=== PATIENT | male | born 1955 | race Caucasian/White ===

== ENCOUNTER 2020-07-21 08:41 | Emergency (ER) | payer OTHER ==
[2020-07-21 09:34] LABS: Absolute Lymphocytes (CBC) 2.2 K/uL (0.7-4.9); Basophils % 1.3 % (0-1.3); Hematocrit 53.2 % (39.6-49.0); Lymphocytes % 25.2 % (15.3-44.8); MPV 8.2 fL (7.6-11.3); RBC Red Blood Cell Count 5.77 M/uL (4.33-5.43)
[2020-07-21 09:44] LABS: Urine Blood 3+ (NEG); Urine Glucose 3+ (NEG); Urine Protein TRACE (NEG); Urine Specific Gravity 1.025 (1.005-1.030); Urine pH 5.5 (5.0-7.0)
[2020-07-21 09:45] LABS: Potassium 4.3 mmol/L (3.5-5.1)
--- NOTE | 2020-07-21 10:25 | EDPHYS ---
Physician Documentation [facility] Name: Tutu Harrington Age: 65 yrs Sex: Male : 1955 Arrival Date: 07/21/2020 Time: 08:46 Bed 5 Private MD: ED Physician Jt Guajardo HPI: 07/21 09:09 This 65 yrs old Male presents to ER via Wheelchair with complaints of High kdr Blood Sugar. 09:09 The patient or guardian reports generalized fatigue, generalized weakness, kdr hyperglycemia, polydipsia, polyuria. Onset: The symptoms/episode began/occurred gradually, 9 month(s) ago. Associated signs and symptoms: Pertinent positives: dry skin, polydipsia. Current symptoms: In the emergency department the patient's symptoms are unchanged from the initial presentation. The patient has experienced similar episodes in the past, chronically. The patient has not recently seen a physician. Historical: - Allergies: 08:47 No Known Allergies; rb1 - Home Meds: 08:47 None [Active]; rb1 - PMHx: 08:47 COPD; Arthritis; rb1 08:47 Diabetes - Refused Insulin; rb1 - PSHx: 08:47 Bilateral Hip Replacements; rb1 - Immunization history:: Adult Immunizations up to date. - Social history:: Smoking status: Patient reports the use of cigarette tobacco products, smokes one pack cigarettes per day. ROS: 09:09 Constitutional: Negative for fever, chills, and weight loss, Eyes: Negative for injury, kdr pain, redness, and discharge, Neck: Negative for injury, pain, and swelling, Cardiovascular: Negative for chest pain, palpitations, and edema, Respiratory: Negative for shortness of breath, cough, wheezing, and pleuritic chest pain, Abdomen/GI: Negative for abdominal pain, nausea, vomiting, diarrhea, and constipation, Back: Negative for injury and pain, Psych: Negative for depression, anxiety, suicide ideation, homicidal ideation, and hallucinations, Allergy/Immunology: Negative for hives, rash, and allergies, Hematologic/Lymphatic: Negative for swollen nodes, abnormal bleeding, and unusual bruising. 09:09 Skin: Positive for cellulitis, erythema. Exam: 09:09 Constitutional: This is a well developed, well nourished patient who is awake, alert, kdr and in no acute distress. Head/Face: Normocephalic, atraumatic. Eyes: Pupils equal round and reactive to light, extra-ocular motions intact. Lids and lashes normal. Conjunctiva and sclera are non-icteric and not injected. Cornea within normal limits. Periorbital areas with no swelling, redness, or edema. Neck: Trachea midline, no thyromegaly or masses palpated, and no cervical lymphadenopathy. Supple, full range of motion without nuchal rigidity, or vertebral point tenderness. No Meningismus. Chest/axilla: Normal chest wall appearance and motion. Nontender with no deformity. No lesions are appreciated. Cardiovascular: Regular rate and rhythm with a normal S1 and S2. No gallops, murmurs, or rubs. Normal PMI, no JVD. No pulse deficits. Respiratory: Lungs have equal breath sounds bilaterally, clear to auscultation and percussion. No rales, rhonchi or wheezes noted. No increased work of breathing, no retractions or nasal flaring. Abdomen/GI: Soft, non-tender, with normal bowel sounds. No distension or tympany. No guarding or rebound. No evidence of tenderness throughout. Back: No spinal tenderness. No costovertebral tenderness. Full range of motion. Skin: Warm, dry with normal turgor. Normal color with no rashes, no lesions, and no evidence of cellulitis. Neuro: Awake and alert, GCS 15, oriented to person, place, time, and situation. Cranial nerves II-XII grossly intact. Motor strength 5/5 in all extremities. Sensory grossly intact. Cerebellar exam normal. Normal gait. Psych: Awake, alert, with orientation to person, place and time. Behavior, mood, and affect are within normal limits. 09:09 Musculoskeletal/extremity: Extremities: grossly normal except: noted in the lateral aspect of right calf, right calf, medial aspect of right calf and right whaley: noted in the lateral aspect of left calf, left calf, medial aspect of left calf and left whaley: erythema, pain, Pulses: are normal with no appreciated deficits, Edema, 1+ to the left midcalf, left ankle, right midcalf and right ankle is noted. Vital Signs: 08:47 BP 148 / 92; Pulse 107; Resp 20; Pulse Ox 93% ; Weight 124.74 kg; Height 5 ft. 11 in. rb1 (180.34 cm); Pain 0/10; 09:43 BP 136 / 88; Pulse 104; Pulse Ox 95% on 2 lpm NC; rb1 10:30 BP 128 / 76; Pulse 105; Resp 18; Pulse Ox 95% on 2 lpm NC; rb1 08:47 Body Mass Index 38.35 (124.74 kg, 180.34 cm) rb1 Procedures: 09:25 Peripheral line: by aseptic technique a peripheral line was placed in the left external snw jugular vein. MDM: 09:09 Data reviewed: vital signs, nurses notes. Counseling: I had a detailed discussion with kdr the patient and/or guardian regarding: the historical points, exam findings, and any diagnostic results supporting the discharge/admit diagnosis, lab results, the need for outpatient follow up. 10:24 Patient medically screened. kdr 07/21 08:49 Order name: CBC with Diff; Complete Time: 10:20 kdr 07/21 08:49 Order name: Chem 7; Complete Time: 10:20 kdr 07/21 09:13 Order name: Glucose, Ancillary Testing; Complete Time: 09:28 EDMS 07/21 09:17 Order name: Urine Dipstick--Ancillary (enter results); Complete Time: 10:20 eb 07/21 08:49 Order name: FSBS; Complete Time: 09:05 kdr Administered Medications: 10:35 Drug: metFORMIN 500 mg Route: PO; rb1 10:35 Follow up: Response: Medication administered at discharge. rb1 Point of Care Testing: Blood Glucose: 09:02 Blood Glucose: 309 mg/dL; rb1 Ranges: Critical Glucose Levels:Adult <50 mg/dl or >400 mg/dl <40 mg/dl or >180 mg/dl Disposition: 10:22 I agree with the assessment and plan of care. kdr Disposition: 07/21/20 10:24 Discharged to Home. Impression: Hyperglycemia, unspecified, Hematuria. - Condition is Stable. - Discharge Instructions: Hematuria, Adult, Blood Glucose Monitoring, Adult, Hyperglycemia, [id number], How to Avoid Diabetes Problems. - Prescriptions for Bactrim DS 800- 160 mg Oral Tablet - take 1 tablet by ORAL route every 12 hours for 5 days; 10 tablet. Metformin 500 mg Oral Tablet - take 1 tablet by ORAL route once daily for 7 days Then take 1 tablet with morning meals AND evening meals; 21 tablet. Celebrex 100 mg Oral Capsule - take 1 capsule by ORAL route every 12 hours As needed take with food; 16 capsule. Albuterol Sulfate 90 mcg/actuation - inhale 1-2 puff by INHALATION route every 4-6 hours; 1 Inhaler. - Medication Reconciliation Form, Thank You Letter, Antibiotic Education form. - Follow up: Private Physician; When: 2 - 3 days; Reason: If symptoms return, Further diagnostic work-up, Recheck today's complaints, Continuance of care, Re-evaluation by your physician. - Problem is new. - Symptoms have improved. Signatures: Dispatcher [employer] EDRI Jt Guajardo MD MD kdr Danita Tang, [facility]Cs[facility] Megan Peña, RN RN rb1 Corrections: (The following items were deleted from the chart) 10:46 10:24 07/21/2020 10:24 Discharged to Home. Impression: Hyperglycemia, unspecified; rb1 Hematuria. Condition is Stable. Forms are Medication Reconciliation Form, Thank You Letter, Antibiotic Education, Prescription Opioid Use. Follow up: Private Physician; When: 2 - 3 days; Reason: If symptoms return, Further diagnostic work-up, Recheck today's complaints, Continuance of care, Re-evaluation by your physician. Problem is new. Symptoms have improved. kdr
--- NOTE | 2020-07-21 10:25 | ER ---
Nurse's Notes [facility] Name: Tutu Harrington Age: 65 yrs Sex: Male : 1955 Arrival Date: 07/21/2020 Time: 08:46 Bed 5 Private MD: Diagnosis: Hyperglycemia, unspecified;Hematuria Presentation: 07/21 08:47 Chief complaint: Patient states: Blood sugar has been running high. Two days ago his BS rb1 385. He did not check his BS today. Doctor wanted him to take insulin, but he refused. Coronavirus screen: At this time, the client does not indicate any symptoms associated with coronavirus-19. Ebola Screen: Patient denies travel to an Ebola-affected area in the 21 days before illness onset. Risk Assessment: Do you want to hurt yourself or someone else? Patient reports no desire to harm self or others. Onset of symptoms is unknown. 08:47 Method Of Arrival: Wheelchair [facility] 08:47 Acuity: JESSA 3 rb1 08:47 Initial Sepsis Screen: Does the patient meet any 2 criteria? No. Patient's initial rb1 sepsis screen is negative. Does the patient have a suspected source of infection? No. Patient's initial sepsis screen is negative. Triage Assessment: 08:47 General: Appears in no apparent distress. comfortable, Behavior is calm, cooperative, rb1 Reports fatigue for all the time per pt. report. Denies fever. Pain: Denies pain. Neuro: Level of Consciousness is awake, alert, obeys commands, Oriented to person, place, time, situation. Respiratory: Airway is patent Respiratory effort is even, unlabored, Respiratory pattern is regular, symmetrical. GI: Reports nausea. : No signs and/or symptoms were reported regarding the genitourinary system. Derm: Skin is dusky. Historical: - Allergies: 08:47 No Known Allergies; rb1 - Home Meds: 08:47 None [Active]; rb1 - PMHx: 08:47 COPD; Arthritis; rb1 08:47 Diabetes - Refused Insulin; rb1 - PSHx: 08:47 Bilateral Hip Replacements; rb1 - Immunization history:: Adult Immunizations up to date. - Social history:: Smoking status: Patient reports the use of cigarette tobacco products, smokes one pack cigarettes per day. Screenin:47 Abuse screen: Denies threats or abuse. Nutritional screening: No deficits noted. rb1 Tuberculosis screening: No symptoms or risk factors identified. 08:47 Fall Risk No fall in past 12 months (0 pts). Secondary diagnosis (15 points) impaired rb1 mobility, IV access (20 points). Ambulatory Aid- Crutches/Cane/Walker (15 pts). Gait- Impaired (20 pts.). Mental Status- Oriented to own ability (0 pts). Total Lopes Fall Scale indicates High Risk Score (45 or more points). Fall prevention measures have been instituted. Side Rails Up X 2 Placed Close to Nursing Station 1:1 Attendant Assigned Frequent Obs/Assessments Occuring Family Present and informed to notify staff if the need to leave the bedside As available patient and family educated on Fall Prevention Program and Strategies. Assessment: 08:47 General: See triage assessment. rb1 09:44 Reassessment: Patient appears in no apparent distress at this time. No changes from rb1 previously documented assessment. 10:30 Reassessment: Patient appears in no apparent distress at this time. Patient and/or rb1 family updated on plan of care and expected duration. Pain level reassessed. Patient is alert, oriented x 3, equal unlabored respirations, skin warm/dry/pink. Vital Signs: 08:47 BP 148 / 92; Pulse 107; Resp 20; Pulse Ox 93% ; Weight 124.74 kg; Height 5 ft. 11 in. rb1 (180.34 cm); Pain 0/10; 09:43 BP 136 / 88; Pulse 104; Pulse Ox 95% on 2 lpm NC; rb1 10:30 BP 128 / 76; Pulse 105; Resp 18; Pulse Ox 95% on 2 lpm NC; rb1 08:47 Body Mass Index 38.35 (124.74 kg, 180.34 cm) [facility] ED Course: 08:46 Patient arrived in ED. as 08:47 Arm band placed on right wrist. rb1 08:47 Patient has correct armband on for positive identification. Bed in low position. Call rb1 light in reach. Side rails up X 1. Pulse ox on. NIBP on. Warm blanket given. 08:48 Jt Guajardo MD is Attending Physician. kdr 08:55 Megan Peña, RN is Primary Nurse. rb1 08:57 Triage completed. rb1 09:15 Inserted saline lock: 20 gauge in left EJ, using aseptic technique. ,using aseptic rb1 technique. Inserted by GALINDO Samayoa. 10:38 No provider procedures requiring assistance completed. IV discontinued, intact, rb1 bleeding controlled, No redness/swelling at site. Pressure dressing applied. Administered Medications: 10:35 Drug: metFORMIN 500 mg Route: PO; rb1 10:35 Follow up: Response: Medication administered at discharge. rb1 Point of Care Testing: Blood Glucose: 09:02 Blood Glucose: 309 mg/dL; rb1 Ranges: Outcome: 10:24 Discharge ordered by . kdr 10:38 Patient left the ED. rb1 10:38 Discharged to home via wheelchair, with family. rb1 10:38 Condition: stable 10:38 Discharge instructions given to patient, Instructed on discharge instructions, follow up and referral plans. medication usage, Demonstrated understanding of instructions, follow-up care, medications, Prescriptions given X 4. Signatures: Jt Guajardo MD MD kdr Lavinia Aguilar Rebecca, RN RN rb1 Corrections: (The following items were deleted from the chart) 10:49 10:46 Patient left the ED. rb1 rb1
[2020-07-21] MEDS ORDERED: METFORMIN HCL 500 MG TAB ONE (10:43)
[2020-07-21 11:01] VITALS: BP 136/88; O2SAT 95
--- OUTSIDE RECORDS SUMMARY | 2020-07-25 22:24 | XMS REPORT | Continuity of Care Document ---
:1955 Author Organization [employer] Information [employer] Care Team Providers Name Role Phone [facility] [employer] Information [place] Unavailable Un available Problems Problem Status Onset Classification Date Comments Sourc e Date Reported CHROIC Active [facility] [place] HEPATITIS C 2 [facility] VIRUS, JOINT PAIN, LO 724.2 - Active OPID LUMBAGO 2 [place] Arthritis Resolved Problem 10/30/2012 [facility] Asbestos Active Problem 10/30/2012 [facility] [place] fibers Hospital Hepatitis C Active Problem 10/30/2012 [facility] Insomnia Resolved Problem 10/30/2012 [facility] Pain Active Problem 10/30/2012 [facility] HEPATITIS NOS Active [facility] Medications Medication Details Route Status Patient Ordering Order Source Instructions Provider Date Milk of Magnesia 30 mL, Route: PO No Cody 10/27/ Araceli PO, Drug Form: [facility] 2012 [facility] SUSP, Q6H, PRN Active Constipation, Start date: 10/26/12 21:13:00, Duration: 30 day, Stop date: 11/25/12 21:12:00 Lovenox 40 mg, 0.4 mL, SUB-Q No Cody 10/26/ Araceli Route: SUB-Q, [address] Drug form: INJ, Active [id number], Start date: 10/26/12 4:00:00, Duration: 30 day, Stop date: 11/24/12 4:00:00 promethazine + 6.25 mg, 0.25 IVPB No Jac 10/26/ Araceli Sodium Chloride mL, Route: IVPB, [address] 0.9% IV 50 mL ONCE, Dosing Active Weight 135.625, kg, PRN Nausea & Vomiting, Start date: 10/25/12 18:01:00 cefazolin 2 gm, 50 mL, IVPB No Cody 10/26/ Araceli Route: IVPB, [address] Drug form: INJ, Active [id number], Start date: 10/25/12 18:00:00, Duration: 3 doses or times, Stop date: 10/26/12 10:00:00 Lovenox 40 mg/0.4 40mg/0.4mL, SUB-Q Active Cody Janet Charles mL subcutaneous SUB-Q, Daily, 20 2012 [facility] solution syr, Substitution Allowed Pixley 10/325 oral 1-2 tabs, PO, PO Active Cody 10/25/ GERARD Charles tablet Q4H, PRN, 40 2012 [facility] tab, for pain, Substitution Allowed, Maintenance, TAB enoxaparin 40 mg, Route: SUB-Q No Cody 10/25/ GERARD Kandy y SUB-Q, Q24H, Longer 2012 [facility] Dosing Weight Active 135.625, kg, Start date: 10/25/12 16:00:00, Duration: 30 day, Stop date: 11/23/12 16:00:00 cefazolin (SCIP) 2 gm, Route: IVPB No Cody Janet Charles IVPB, Drug form: Longer 2012 [facility]ospita [facility] INJ, Q8H, Dosing Active Weight 135.625, kg, Start date: 10/25/12 16:00:00, Duration: 3 doses or times, Stop date: 10/26/12 8:00:00 nalbuphine 2 mg, 0.2 mL, IVP No Cody GERARD Gaitan y Route: IVP, Drug Longer 2012 [facility]ospita l form: INJ, Q2H, Active Dosing Weight 135.625, kg, PRN Itching, Start date: 10/25/12 15:51:00, Duration: 5 doses or times, Stop date: Limited # of times naloxone 0.04 mg, 0.1 mL, IVP No Cody 10/25/ GERARD Ka ty Route: IVP, Drug Longer 2012 Hospita l form: INJ, Active Q2MIN, Dosing Weight 135.625, kg, PRN Narcotic Reversal, Start date: 10/25/12 15:51:00, Duration: 30 day, Stop date: 11/24/12 15:50:00 morphine 1 mg/ml 30 mg, 30 mL, IV No Cody GERARD Charles [employer] (30 mg/30 mL) Route: IV, Longer 2012 Hos pital INJ Syringe 30 mg Initial Loading Active Dose: 2 mg, [employer] DIRECTOR Dose: 1 mg, [employer] DIRECTOR Lockout: 7 minutes, Continuous Basal Rate: 1.5 mg, 4 Hour Limit (In MG): 30, Drug Form: INJ, Continuous, Pain, Start date: 10/25/12 15:51:00, Duration: 30 day, Stop date: ... Lactated Ringers 1,000 mL, Rate: IV No Cody GERARD Charles IV 1,000 mL 125 ml/hr, 2012 Hospital Infuse over: 8 Active hr, Route: IV, kg, Total Volume: 1,000, Start date: 10/25/12 15:51:00, Duration: 30 day, Stop date: 11/24/12 15:50:00 zolpidem 5 mg, 1 tab, PO No Cody GERARD Charles Route: PO, Drug 2012 Hospital form: TAB, Active Bedtime, Dosing Weight 135.625, kg, PRN Insomnia, Start date: 10/25/12 15:51:00, Duration: 30 day, Stop date: 11/24/12 15:50:00 ondansetron 4 mg, 2 mL, IVP No Cody Araceli Route: IVP, Drug 2012 [facility]ospita l form: INJ, Q4H, Active Dosing Weight 135.625, kg, PRN Nausea & Vomiting, Start date: 10/25/12 15:51:00, Duration: 30 day, Stop date: 11/24/12 15:50:00 diphenhydrAMINE 25 mg, 0.5 mL, IM No Cody Araceli Route: IM, Drug 2012 Hospital form: INJ, Q6H, Active Dosing Weight 135.625, kg, PRN Itching, Start date: 10/25/12 15:51:00, Duration: 30 day, Stop date: 11/24/12 15:50:00 ketorolac 30 mg, 1 mL, IVP No Cody Araceli Route: IVP, Drug 2012 [facility]ospita l form: INJ, Q6H, Active Dosing Weight 135.625, kg, PRN Breakthrough Pain, Start date: 10/25/12 15:51:00, Duration: 6 doses or times, Stop date: Limited # of times acetaminophen-oxy 2 tab, Route: PO No Cody Araceli codone 325 mg-5 PO, Drug Form: 2012 H ospital mg oral tablet TAB, Dosing Active Weight 135.625, kg, Q4H, PRN Pain Score 4-6, Start date: 10/25/12 15:51:00, Duration: 30 day, Stop date: 11/24/12 15:50:00 acetaminophen 325 mg, 1 tab, PO No Cody Araceli Route: PO, Drug 2012 Hospital form: TAB, Q4H, Active Dosing Weight 135.625, kg, PRN Pain/Fever, Start date: 10/25/12 15:51:00, Duration: 30 day, Stop date: 11/24/12 15:50:00 naloxone 0.04 mg, 0.1 mL, IVP No Fredo Kandy mojica Route: IVP, Drug 2012 Hospita l form: INJ, Active Q2MIN, Dosing Weight 135.625, kg, PRN Narcotic Reversal, Start date: 10/25/12 12:43:00, Duration: 8 doses or times, Stop date: Limited # of times flumazenil 0.2 mg, 2 mL, IVP No Fredo Araceli Route: IVP, Drug 2012 [facility]ospita l form: INJ, PRN, Active Dosing Weight 135.625, kg, PRN Benzodiazepine Reversal, Initial dose, Start date: 10/25/12 12:43:00, Duration: 30 day, Stop date: 11/24/12 12:42:00 albuterol 0.083% 2.49 mg, 3 mL, NEB No Fredo Araceli inhalation Route: NEB, Drug 2012 Hosp ital solution form: SOLN, Active Q5Min, Dosing Weight 135.625, kg, PRN Wheezing, Priority: STAT, Start date: 10/25/12 12:43:00, Duration: 30 day, Stop date: 11/24/12 12:42:00 midazolam 2 mg, 2 mL, IVP No Fredo Araceli Route: IVP, Drug 2012 [facility]ospita l form: SOLN, Active Q5Min, Dosing Weight 135.625, kg, PRN Anxiety, Start date: 10/25/12 12:43:00, Duration: 2 doses or times, Stop date: Limited # of times ondansetron 4 mg, 2 mL, IVP No Adi GERARD Charles Route: IVP, Drug Longer 2012 Hospita l form: INJ, ONCE, Active Dosing Weight 135.625, kg, PRN Nausea & Vomiting, Start date: 10/25/12 12:43:00 labetalol 5 mg, 1 mL, IVP No Fredo Araceli Route: IVP, Drug Longer 2012 [facility]ospita l form: INJ, Active Q5Min, Dosing Weight 135.625, kg, PRN Elevated BP, Start date: 10/25/12 12:43:00, Duration: 5 doses or times, Stop date: Limited # of times meperidine 12.5 mg, 0.5 mL, IVP No Fredo GERARD carbajal Route: IVP, Drug 2012 Hospita l form: INJ, Active Q30Min, Dosing Weight 135.625, kg, PRN Other -See Comment, For shivering, Start date: 10/25/12 12:43:00, Duration: 2 doses or times, Stop date: Limited # of times morphine Sulfate 2 mg, 1 mL, IVP No Fredo Araceli Route: IVP, Drug 2012 [facility]ospita l form: INJ, Active Q5Min, Dosing Weight 135.625, kg, PRN Pain Score 4-6, Start date: 10/25/12 12:43:00, Duration: 8 doses or times, Stop date: Limited # of times hydromorphone 0.5 mg, 0.25 mL, IVP No Fredo Janet Charles Route: IVP, Drug Longer 2012 Hospita l form: INJ, Active Q5Min, Dosing Weight 135.625, kg, PRN Pain Score 4-6, Start date: 10/25/12 12:43:00, Duration: 5 doses or times, Stop date: Limited # of times Lactated Ringers 1,000 mL, Rate: IV No Fredo Araceli Injection IV 50 ml/hr, Infuse Longer 2012 Ho spital 1,000 mL over: 20 hr, Active Route: IV, kg, Total Volume: 1,000, Start date: 10/25/12 12:43:00, Duration: 30 day, Stop date: 11/24/12 12:42:00 morphine Sulfate 4 mg, Route: IVP No Fredo GERARD Charles IVP, ONCE, Longer 2012 [facility] Dosing Weight Active 135.625, kg, Start date: 10/25/12 12:24:00, Stop date: 10/25/12 12:24:00 midazolam 2 mg, 2 mL, IVP No Dana GERARD Charles Route: IVP, Drug Longer 2012 Hospita l form: SOLN, Active Q5Min, Dosing Weight 135.625, kg, PRN Anxiety, Start date: 10/25/12 7:35:00, Duration: 2 doses or times, Stop date: Limited # of times dexamethasone 4 mg, 1 mL, IVP No Fredo GERARD mojica Route: IVP, Drug 2012 Hospita l form: INJ, ONCE, Active Dosing Weight 135.625, kg, PRN Nausea & Vomiting, Start date: 10/25/12 7:35:00 ondansetron 4 mg, 2 mL, IVP No Dana GERARD Charles Route: IVP, Drug 2012 [facility]ospita l form: INJ, ONCE, Active Dosing Weight 135.625, kg, PRN Nausea & Vomiting, Start date: 10/25/12 7:35:00 diphenhydrAMINE 12.5 mg, 0.25 IVP No Fredo GERARD Charles mL, Route: IVP, Longer 2012 [facility] Drug form: INJ, Active PRN, Dosing Weight 135.625, kg, PRN Itching, Start date: 10/25/12 7:35:00, Duration: 30 day, Stop date: 11/24/12 7:34:00 naloxone 0.04 mg, 0.1 mL, IVP No Dana GERARD mojica Route: IVP, Drug 2012 Hospita l form: INJ, Active Q2MIN, Dosing Weight 135.625, kg, PRN Narcotic Reversal, Start date: 10/25/12 7:35:00, Duration: 8 doses or times, Stop date: Limited # of times flumazenil 0.2 mg, 2 mL, IVP No Dana GERARD Charles Route: IVP, Drug Longer 2012 Hospita l form: INJ, PRN, Active Dosing Weight 135.625, kg, PRN Benzodiazepine Reversal, Initial dose, Start date: 10/25/12 7:35:00, Duration: 30 day, Stop date: 11/24/12 7:34:00 meperidine 12.5 mg, 0.5 mL, IVP No Dana K aty Route: IVP, Drug Longer 2012 Hospita l form: INJ, Active Q30Min, Dosing Weight 135.625, kg, PRN Other -See Comment, For shivering, Start date: 10/25/12 7:35:00, Duration: 2 doses or times, Stop date: Limited # of times morphine Sulfate 2 mg, 1 mL, IVP No Dana Araceli Route: IVP, Drug Longer 2012 [facility]ospita l form: INJ, Active Q5Min, Dosing Weight 135.625, kg, PRN Pain Score 4-6, Start date: 10/25/12 7:35:00, Duration: 8 doses or times, Stop date: Limited # of times fentanyl 25 microgram, IVP No [place] Araceli 0.5 mL, Route: Longer 2012 Hospital IVP, Drug form: Active INJ, Q5Min, Dosing Weight 135.625, kg, PRN Pain Score 4-6, Start date: 10/25/12 7:35:00, Duration: 4 doses or times, Stop date: Limited # of times butorphanol 1 mg, 1 mL, IVP No Fredo Araceli Route: IVP, Drug Longer 2012 Hospita l form: INJ, Active Q10Min, Dosing Weight 135.625, kg, PRN Pain Score 7-10, Start date: 10/25/12 7:35:00, Duration: 2 doses or times, Stop date: Limited # of times metoprolol 1 mg, 1 mL, IVP No Fredo Araceli Route: IVP, Drug Longer 2012 Hospita l form: INJ, Active Q5Min, Dosing Weight 135.625, kg, PRN Elevated BP, Start date: 10/25/12 7:35:00, Duration: 5 doses or times, Stop date: Limited # of times labetalol 5 mg, 1 mL, IVP No Sircar 10/25/ GERARD Charles Route: IVP, Drug Longer 2012 [facility] l form: INJ, Active Q5Min, Dosing Weight 135.625, kg, PRN Elevated BP, Start date: 10/25/12 7:35:00, Duration: 5 doses or times, Stop date: Limited # of times Lactated Ringers 1,000 mL, Rate: IV No Sircar Araceli Injection IV 50 ml/hr, Infuse Longer 2012 Ho spital 1,000 mL over: 20 hr, Active Route: IV, kg, Total Volume: 1,000, Start date: 10/25/12 7:35:00, Duration: 30 day, Stop date: 11/24/12 7:34:00 cefazolin 2 gm, 50 mL, IVPB No Cody Araceli Route: IVPB, Longer 2012 Hospital Drug form: INJ, Active PRE OP, Start date: 10/25/12 6:30:00, Duration: 1 doses or times, Stop date: 10/25/12 20:00:00 Sodium Chloride 25 mL, Route: IV No Cody H Araceli 0.9% IV IV, Start date: 2012 Hospital 10/22/12 Active 14:15:00, Duration: 30 day, Stop date: 11/21/12 14:14:00, PRN Line Flush BD Normal Saline 10 mL, Route: IV No Cody 10/22/ Araceli Flush IV, Drug Form: [facility] 2012 Hospital INJ, PRN, PRN Active Line Flush, Start date: 10/22/12 14:15:00, Duration: 30 day, Stop date: 11/21/12 14:14:00 Celebrex 200 mg 200 mg, 1 cap, PO Active H Arac[facility] oral capsule PO, BID, 30 cap, 2012 Ho spital Substitution Allowed, CAP Allergies, Adverse Reactions, Alerts Substance Category Reaction Severity Reaction Status Date Comments S ource type Reported NKFA drug Allergy Active [facility] allergy [facility] Immunizations No Data Provided for This Section Results Order Name Results Value Reference Date Interpretation Comments Abril rce Range CHEMISTRY BUN 23 7 - 22 10/26 [facility] /2012 [facility] CHEMISTRY Calcium Lvl 7.9 8.5 - 10.5 10/26 LOW Hospital CHEMISTRY Potassium 4.7 3.5 - 5.1 10/26 Normal [facility] CHEMISTRY Chloride Lvl 102 95 - 109 10/26 Normal [facility] CHEMISTRY Sodium Lvl 137 135 - 145 10/26 Normal [facility] CHEMISTRY Glucose Lvl 145 70 - 99 10/26 HI <sup>2</sup>I [facility] at nterpretive Hospital Data: Adult reference range values reflect the clinical guidelines
of the [place] [employer]. CHEMISTRY Creatinine 1.3 0.5 - 1.4 10/26 Normal [facility] CHEMISTRY CO2 27 24 - 32 10/26 Normal Araceli [facility] CHEMISTRY eGFR 61 10/26 NA <sup>1</sup>R [facility] Comment: The eGFR is calculated using the CKD-EPI formula. In most young, healthy individuals the eGFR will be >90 mL/min/1.73m2 . The eGFR declines with age. An eGFR of 60-89 may be normal in some populations, particularly the elderly, for whom the CKD-EPI formula has not been extensively validated. Use of the eGFR is not recommended in the following populations:& lt;br/>
I ndividuals with unstable creatinine concentration s, including patients and those with serious co-morbid conditions.<b r/>
Patie nts with extremes in muscle mass or diet.

The data above are obtained from the National Kidney Disease Education Program (NKDEP) which additionally recommends that when the eGFR is used in patients with extremes of body mass index for purposes of drug dosing, the eGFR should be multiplied by the estimated BMI. CHEMISTRY AGAP 12.7 10.0 - 10/26 Normal [facility] 20.0 Hospital HEMATOLOGY Monocytes # 0.6 0.0 - 0.8 10/26 Normal [facility] HEMATOLOGY Large Plt Slight None Seen 10/26 ABN MH [facility]eli *ABN* /2012 [facility] (10/26/2012 06:20:00) HEMATOLOGY Neut Vac Slight None Seen 10/26 ABN Araceli *ABN* [facility] (10/26/2012 06:20:00) HEMATOLOGY Basophils # 0.0 0.0 - 0.2 10/26 Normal [facility] /2012 Hospital HEMATOLOGY Eosinophils 0.1 0.0 - 0.5 10/26 Normal [facility] # /2012 Hospital HEMATOLOGY Eosinophils 0.5 0.0 - 4.0 10/26 Normal [facility] /2012 Hospital HEMATOLOGY Lymphocytes 1.8 1.0 - 5.5 10/26 Normal [facility] # /2012 Hospital HEMATOLOGY Segs-Bands # 9.1 1.5 - 8.1 10/26 HI MH Kandy y /2012 Hospital HEMATOLOGY Basophils 0.3 0.0 - 1.0 10/26 Normal [facility] /2012 Hospital HEMATOLOGY Monocytes 5.0 2.0 - 12.0 10/26 Normal [facility] /2012 Hospital HEMATOLOGY Lymphocytes 15.8 20.0 - 10/26 LOW [facility] 40.0 Hospital HEMATOLOGY Segs 78.4 45.0 - 10/26 HI [facility] 75.0 Hospital HEMATOLOGY RBC Morph Normal 10/26 Normal [facility] (10/26/2012 06:20:00) spital HEMATOLOGY RDW 13.1 11.5 - 10/26 Normal [facility] 14.5 /2012 Hospital HEMATOLOGY Platelet 86 133 - 450 10/26 LOW [facility] /2012 Hospital HEMATOLOGY MPV 9.3 7.4 - 10.4 10/26 Normal [facility] /2012 Hospital HEMATOLOGY RBC 3.88 4.70 - 10/26 LOW [facility] 6.10 Hospital HEMATOLOGY WBC 11.6 3.7 - 10.4 10/26 HI MH [facility] /2012 Hospital HEMATOLOGY MCHC 35.1 32.0 - 10/26 Normal MH [facility] 36.0 /2012 Hospital HEMATOLOGY MCH 32.8 27.0 - 10/26 HI MH [facility] 31.0 /2012 Hospital HEMATOLOGY MCV 93.3 80.0 - 10/26 Normal [facility] 94.0 /2012 Hospital HEMATOLOGY Hct 36.2 42.0 - 10/26 LOW MH [facility] 54.0 Hospital HEMATOLOGY Hgb 12.7 14.0 - 10/26 LOW MH [facility] 18.0 /2012 Hospital BLOOD BANK RBC product Product available 10/21 Normal [facility] RESULTS (10/21/2012 15:10:00) spital BLOOD BANK ABO/Rh A POS 10/21 Unknown [facility] RESULTS /2012 Hospital BLOOD BANK Antibody Negative 10/21 Normal [facility] RESULTS Scrn (10/21/2012 15:10:00) /2012 Ho spital Pathology Reports No Data Provided for This Section Diagnostic Reports Report Value Date Source Abdomen complete US EXAM: ABDOMEN ULTRASOUND 06/04/2016 Ness Andino DATE: 06/04/2016 10:47 AM CDT . CLINICAL INDICATION: . History of hepatitis C ADDITIONAL DATA: None COMPARISON: None TECHNIQUE: Multiplanar felix michael and color Doppler ultrasound images of the abdomen were obtained. DISCUSSION: Liver demonstrates increased echogenicity without masses. Right hepatic lobe measures 19.8 cm at the midclavicular line. Main portal vein measures 11 mm with hepatopetal flow. Gallbladder normal without g allstones. Gallbladder wall thickness is less than 3 mm. No sonographic Knight's sign or pericholecystic fluid. Visualized portions of the i ntrahepatic and extrahepatic biliary tree are of normal caliber. Common duct is less than 6 mm. Spleen measures 16 cm cranicaudally and is unrem arkable. Pancreas is unremarkable. Kidneys are normal in size, shape, and echotexture without masses or hydronephrosis. Right kidney measures 14.7 cm. Left kidney measures 14.4 cm. Abdominal aorta is of normal caliber. Inferior vena cava is unremarkable where visuali zed. IMPRESSION: 1. Hepatosplenomegaly 2. Echogenic liver suggestin g steatosis or other chronic hepatocellular disease. There is no focal mass lesion 3. Mildly enlarged kidneys b ilaterally without focal lesions. This may be physiologic in a tall patient. Alternatively, early stage diabetic nephropathy or infiltrative processes, such as human immunode ficiency virus or lymphoma may cause this appear ance. Consultation Notes No Data Provided for This Section Discharge Summaries No Data Provided for This Section History and Physicals No Data Provided for This Section Vital Signs Vital Sign Value Date Comments Source Diastolic (mm Hg) 60 10/28/2012 [facility] Systolic (mm Hg) 106 10/28/2012 [facility] Respitory Rate 22 10/28/2012 [facility] Heart Rate 111 10/28/2012 [facility] Temperature Oral (F) 100.5 F 10/28/2012 [facility] Diastolic (mm Hg) 68 10/28/2012 [facility] Systolic (mm Hg) 128 10/28/2012 [facility] Respitory Rate 22 10/28/2012 [facility] Temperature Oral (F) 100 F 10/28/2012 [facility] Heart Rate 113 10/28/2012 [facility] Temperature Oral (F) 98.7 F 10/28/2012 [facility] Heart Rate 97 10/28/2012 [facility] Diastolic (mm Hg) 68 10/28/2012 [facility] Respitory Rate 20 10/28/2012 [facility] Systolic (mm Hg) 115 10/28/2012 [facility] Weight 134.091 10/26/2012 [facility] Height 180.34 cm 10/26/2012 [facility] Weight 135.625 10/21/2012 [facility] Height 181.61 cm 10/21/2012 [facility] En[facility]ters Location Location Encounter Encounter Reason Attending ADM TN Stat us Source Details Type Number For Provider Date Date Visit OD [id number] 724.2 - JESSIE 05/26 Active O PID 0 LUMBAGO KAY [facility] [id number] SHE 10/25 10/28 Dischar g [facility] 0 CODY [facility] [id number] [facility] 05/27 [facility] 0 [place] [facility] [id number] [facility] 06/[address] [facility] [place] [facility] [id number] ULTRASOUND 06/04 [facility] 2 [place] Outpatient [id number] [facility] 06/[address] [facility] [place] [facility] [id number] [facility] [place] [facility] [id number] [facility] 09/18 [facility] [place] Out[facility] [id number] [facility] 11/10 [facility] [place] Out[facility] [id number] [facility]/01 [facility] [place] Procedures Procedure Code Date Perfomer Comments Source Amputation of [id number] 1Left thumb [facility] finger tip [facility] <sup>1</sup> Colonoscopy [id number] [facility] Hip replacement 2left [facility] <sup>2</sup> [facility] Nasal operation [id number] 3repair of [facility] <sup>3</sup> [facility] fx ([facility] Assessment and Plan No Data Provided for This Section Plan of Care No Data Provided for This Section Social History No Data Provided for This Section Family History No Data Provided for This Section Advance Directives No Data Provided for This Section Functional Status No Data Provided for This Section
== END 2020-07-21 10:46 | disposition home or self-care (01) ==
LOC: ER 08:41
PROC: 05HQ33Z Insertion of Infusion Device into Left External Jugular Vein, Percutaneous Approach (ICD-10-PCS; principal; 2020-07-21)
DX: E11.65 Type 2 diabetes mellitus with hyperglycemia (principal); R31.9 Hematuria, unspecified; J44.9 Chronic obstructive pulmonary disease, unspecified; F17.210 Nicotine dependence, cigarettes, uncomplicated
CPT/HCPCS: 36415; 80048; 81003; 82947; 85025; 99284

== ENCOUNTER 2024-04-07 11:31 | Inpatient (IN) | payer OTHER ==
[2024-04-07] MEDS ORDERED: ONDANSETRON 4 MG/2 ML VIAL ONE (13:26)
[2024-04-07] MEDS ORDERED: MUPIROCIN 2% OINT 22GM TUBE TOP ONE (13:26)
[2024-04-07] MEDS ORDERED: MORPHINE 4 MG/ML SYR ONE ×2 (13:26→19:32)
[2024-04-07] MEDS ORDERED: PIPERACIL/TAZO 3.375 GM VIAL IV ONE (13:27)
[2024-04-07] MEDS ORDERED: NA CHLORIDE 0.9% 100 ML ONE (13:27)
[2024-04-07] MEDS ORDERED: Levofloxacin500mg IV 500 MG/100 ML BAG IV ONE (13:27)
[2024-04-07] MEDS ORDERED: NA CHLORIDE 0.9% 2,000 ML ONE (13:27)
--- NOTE | 2024-04-07 13:58 | RAD REPORT ---
EXAM DESCRIPTION: US - Extrem Venous W Compress Rober - 04/07/2024 1:52 pm CLINICAL HISTORY: Pain;Swelling Bilateral leg edema and swelling. COMPARISON: No comparisons TECHNIQUE: Real-time sonographic interrogation of the left and right lower extremity deep venous sys tems was performed. FINDINGS: Normal compressibility, flow augmentation, phasic flow and spontaneous flow is identified in both the left and right lower extremity deep venous systems. IMPRESSION: No sonographic evidence of left or right lower extremity deep venous thrombosis.
--- NOTE | 2024-04-07 14:16 | RAD REPORT ---
EXAM DESCRIPTION: RAD - Chest Single View - 04/07/2024 1:58 pm CLINICAL HISTORY: COUGH Chest pain. COMPARISON: Chest Pa And Lat (2 Views) dated 11/26/2020 FINDINGS: Portable technique limits examination quality. The lungs are emphysematous but grossly clear. The heart is normal in size. No displaced fractures. 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 The USPSTF recommends annual screening for lung cancer with low-dose CT (LDCT) in adults aged 50 to 80 years who have a 20 pack-year smoking history and currently smoke or have quit within the past 15 years.
[2024-04-07 15:55] LABS: Absolute Lymphocytes (CBC) 1.3 K/uL (0.7-4.9); Absolute Monocytes 0.6 K/uL (0.1-1.3); Absolute Neutrophil 6.2 K/uL (1.8-8.0); Basophils % 0.3 % (0-1.3); Eosinophils % 0.5 % (0-4.4); Hematocrit 43.6 % (39.6-49.0); Lymphocytes % 16.3 % (15.3-44.8); MCH 31.2 pg (27.0-35.0); MCHC 34.4 g/dL (32.0-36.0); MCV 90.6 fL (80-100); MPV 7.8 fL (7.6-11.3); Monocytes % 7.4 % (3.3-12.3); Neutrophils % 75.5 % (41.7-73.7); Nucleated Red Blood Cells % 0.2 % (0-0); Platelets 163 thou/uL (152-406); RBC Red Blood Cell Count 4.81 M/uL (4.33-5.43); Red Cell Distribution Width 14.6 % (12.1-15.2)
[2024-04-07 16:01] LABS: Protime INR 1.38
[2024-04-07] MEDS ORDERED: TDAP (DIPHTH,PERTUSS(ACELL),TET VAC) 0.5 ML VIAL IMVAC ONE (16:10)
--- NOTE | 2024-04-07 16:19 | ER ---
Nurse's Notes [facility] Name: Tutu Harrington Age: 68 yrs Sex: Male : 1955 Arrival Date: 04/07/2024 Time: 11:31 Bed 14 Private MD: Diagnosis: Cellulitis and acute lymphangitis of other parts of limb;Venous insufficiency (chronic) (peripheral);COPD/ Chronic obstructive pulmonary disease, unspecified;Tobacco abuse counseling;Tobacco use;Edema, unspecified;Unspecified cirrhosis of liver Presentation: 04/07 11:36 Chief complaint: EMS states: Out of medications, bilateral lower extremity edema as nj1 well as pain. He stated "i want to go to hospital for a sandwich and medication". Risk Assessment: Do you want to hurt yourself or someone else?. Onset of symptoms was January 2024. Care prior to arrival: Glucose check: 111. 11:36 Method Of Arrival: EMS: [facility] oh1 11:36 Acuity: JESSA 3 nj1 11:49 Chief complaint: Patient states: Right lower leg edema, has wound on it, states its nj1 been 3 days. Also complains of being out of his diabetes medication for a few months. Coronavirus screen: Vaccine status: Patient reports being unvaccinated. Ebola Screen: Patient denies travel to an Ebola-affected area in the 21 days before illness onset. Initial Sepsis Screen: Does the patient meet any 2 criteria? HR > 90 bpm. No. Patient's initial sepsis screen is negative. Does the patient have a suspected source of infection? No. Patient's initial sepsis screen is negative. Triage Assessment: 11:52 General: Appears in no apparent distress. uncomfortable, Behavior is calm, cooperative, nj1 appropriate for age. General: Appears Smells of URINE. Pain: Complains of pain in right leg Pain currently is 8 out of 10 on a pain scale. Neuro: Level of Consciousness is awake, alert, obeys commands, Oriented to person, place, time, situation. 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: [employer]; Exp: ThuJun 04 2026; Lot #: [id number]; Series: 1 of 1; Patient Consent: Obtained; Date/Time: ; Source Name: Tutu Harrington; Source Relationship: Self; Address Information: [address] [place] [address], [place] [address]; ; Education: Provided; VIS Presented Date: ; VIS Publication: Tetanus/Diphtheria (Td) VIS 11/22/2013 (historic) 15:18 Piperacillin-Tazobactam IVPB 3.375 grams le1 15:15 NS 0.9% IV 1000 ml le1 15:14 Mupirocin Topical Ointment 2 % 1 application le1 15:00 morphine IVP or IV 4 mg le1 15:00 Ondansetron IVP 4 mg le1 - Immunization history:: Client reports having NOT received the Covid vaccine. - Infectious Disease History:: Denies. - Social history:: Smoking status: Patient reports the use of cigarette tobacco products, smokes one pack cigarettes per day. Screenin:57 [facility] ED Fall Risk Assessment (Adult) History of falling in the last 3 months, le1 including since admission No falls in past 3 months (0 pts) Confusion or Disorientation No (0 pts) Intoxicated or Sedated No (0 pts) Impaired Gait No (0 pts) Mobility Assist Device Used Yes (1 pt) Altered Elimination No (0 pt) Score/Fall Risk Level 0 - 2 = Low Risk Oriented to surroundings, Maintained a safe environment, Educated pt \\T\\ family on fall prevention, incl call for assistance when getting out of bed, Assessed \\T\\ reinforced patient's understanding of fall precautions, Hourly rounding (assess needs \\T\\ fall precautionary measures) done, Used ambulatory aids as needed (educated on \\T\\ assisted with). Abuse screen: Denies threats or abuse. Nutritional screening: No deficits noted. Tuberculosis screening: No symptoms or risk factors identified. Assessment: 13:11 General: Appears in no apparent distress. unkempt, Behavior is calm, cooperative, le1 Smells of urine. Pain: Complains of pain in right foot and right leg. 13:55 Neuro: No deficits noted. Dodge Agitation-Sedation Scale (RASS): 0 - Alert and Calm le1 Level of Consciousness is awake, alert, obeys commands, Oriented to person, place, time, situation. Cardiovascular: Pulses are absent in right dorsalis pedis artery are palpable in left dorsalis pedis artery Edema is 2+ to right ankle, right foot and right toes. Respiratory: No deficits noted. Injury Description: skin tear in R lower leg. Vital Signs: 11:49 BP 117 / 85; Pulse 102; Resp 18; Temp 97.8(O); Pulse Ox 98% on R/A; Weight 120.2 kg; nj1 Height 5 ft. 10 in. ; Pain 8/10; 15:17 BP 126 / 71 RA Supine (auto/reg); Pulse 98 MON; Resp 18 S; Temp 98(O); Pulse Ox 94% on le1 R/A; 11:49 Body Mass Index 38.02 (120.20 kg, 177.8 cm) nj1 11:49 Pain Scale: Adult [facility] ED Course: 11:36 Patient arrived in ED. mr 11:39 Triage completed. nj1 11:47 Jayme Tamayo MD is Attending Physician. estephania 11:52 Arm band placed on right wrist. nj1 13:01 John Smith, RN is Primary Nurse. le1 13:54 US Extremity Venous W Compression Rober In Process Unspecified. EDMS 13:58 Patient has correct armband on for positive identification. Placed in gown. Bed in low le1 position. Call light in reach. Side rails up X 1. Provided Education on: press call light if needing anything. 14:00 XRAY Chest (1 view) In Process Unspecified. EDMS 14:32 First set of blood cultures drawn by me. le1 14:34 Second set of blood cultures drawn by me. le1 14:41 EKG done, by ED staff, reviewed by Jayme Tamayo MD. Inserted saline lock: 20 gauge in le1 left forearm, using aseptic technique. Blood collected. 16:17 Maggie Domínguez MD is Hospitalizing Provider. estephania 21:56 No provider procedures requiring assistance completed. Patient admitted, IV remains in mb9 place. Administered Medications: 15:00 Drug: morphine IVP or IV 4 mg IVP once over 4 mins Route: IVP; Infused Over: 4 mins; le1 Site: left forearm; 15:14 Follow up: Response: No adverse reaction; Pain is decreased le1 15:00 Drug: Ondansetron IVP 4 mg IVP once; over 2 minutes Route: IVP; Site: left forearm; le1 15:15 Follow up: Response: No adverse reaction; Nausea is decreased le1 15:14 Drug: Mupirocin Topical Ointment 2 % 1 application Topical once Route: Topical; Site: le1 affected area; 15:14 Follow up: Response: No adverse reaction le1 15:15 Drug: NS 0.9% IV 1000 ml IV at 1 bolus Per protocol; 1000 mL bolus Route: IV; Rate: 1 le1 bolus; Site: left forearm; 18:23 Follow up: Response: No adverse reaction; IV Status: Completed infusion le1 15:18 Drug: Piperacillin-Tazobactam IVPB 3.375 grams IVPB once over 60 mins; (mix in NS 100 le1 mL) Route: IVPB; Infused Over: 60 mins; Site: left forearm; 16:32 Follow up: Response: No adverse reaction; IV Status: Completed infusion le1 16:12 Drug: Tetanus Toxoid,Adsorbed IM 0.5 ml IM once; Provide Vaccine Information Statement 9 (VIS). 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[employer]; Exp: ThuJun 04 2026; Lot #: [id number]; Series: 1 of ; Patient Consent: Obtained; Date/Time: ; Source Name: Tutu Harrington; Source Relationship: Self; Address Information: [address] [place] [address]; ; Education: Provided; VIS Presented Date: ; VIS Publication: Tetanus/Diphtheria (Td) VIS 11/22/2013 (historic)} Route: IM; Site: right deltoid; 16:26 Follow up: Response: No adverse reaction le1 17:28 Follow up: Response: No adverse reaction le1 16:25 Drug: NS 0.9% IV 1000 ml IV at 125 ml/hr continuous Route: IV; Rate: 125 ml/hr; Site: mb9 left forearm; 16:27 Drug: levofloxacin IVPB 500 mg 100 ml IVPB once over 60 mins Volume: 100 ml; Route: le1 IVPB; Infused Over: 60 mins; Site: left forearm; 18:23 Follow up: Response: No adverse reaction; IV Status: Completed infusion le1 Medication: 13:59 VIS not applicable for this client. le1 Outcome: 16:18 Decision to Hospitalize by Provider. estephania 21:56 Admitted to Med/surg accompanied by tech, via stretcher, room 221, mb9 21:56 Condition: stable 21:56 Instructed on the need for admit, 21:57 Patient left the ED. mb9 Signatures: Dispatcher [employer] EDMS Jayme Tamayo MD MD cha Rivera, Mary, Emil Callahanrenny, Gunjan Valdes, RN RN mb9 Alexandria Huang RN RN nj1 John Smith RN RN le1
--- NOTE | 2024-04-07 16:19 | EDPHYS ---
Physician Documentation [facility] Name: Tutu Harrington Age: 68 yrs Sex: Male : 1955 Arrival Date: 04/07/2024 Time: 11:31 Bed 14 Private MD: ED Physician Jayme Tamayo HPI: 04/07 15:57 This 68 yrs old Male presents to ER via EMS with complaints of Medication estephania Refill. 15:57 This 68 yrs old Male presents to ER via EMS with complaints of Medication estephania Refill. 15:57 The patient presents to the emergency department requesting refill(s) for: PAIN MEDS, estephania FLOMAX , DM MEDS. Historical: - Allergies: 11:51 No Known Allergies; nj1 - PMHx: 11:51 COPD; Diabetes - Refused Insulin; Arthritis; BPH (Unknown); nj1 - Immunization history:: Client reports having NOT received the Covid vaccine. - Infectious Disease History:: Denies. - Social history:: Smoking status: Patient reports the use of cigarette tobacco products, smokes one pack cigarettes per day. ROS: 16:02 Constitutional: Negative for fever, chills, and weight loss, Eyes: Negative for injury, estephania pain, redness, and discharge, ENT: Negative for injury, pain, and discharge, Neck: Negative for injury, pain, and swelling, Cardiovascular: Negative for chest pain, palpitations, and edema, Respiratory: Negative for shortness of breath, cough, wheezing, and pleuritic chest pain, Abdomen/GI: Negative for abdominal pain, nausea, vomiting, diarrhea, and constipation, Back: Negative for injury and pain, : Negative for injury, bleeding, discharge, and swelling, Neuro: Negative for headache, weakness, numbness, tingling, and seizure, Psych: Negative for depression, anxiety, suicide ideation, homicidal ideation, and hallucinations, Allergy/Immunology: Negative for hives, rash, and allergies, Endocrine: Negative for neck swelling, polydipsia, polyuria, polyphagia, and marked weight changes, Hematologic/Lymphatic: Negative for swollen nodes, abnormal bleeding, and unusual bruising, 16:02 MS/extremity: Positive for injury or acute deformity, decreased range of motion, erythema, pain, swelling, tenderness, of the lateral aspect of right calf, right ankle, right calf, medial aspect of right calf and right whaley, 16:02 Skin: Positive for cellulitis, erythema, swelling, of the lateral aspect of right calf, right calf, medial aspect of right calf and right whaley, Exam: 16:02 Constitutional: This is a well developed, well nourished patient who is awake, alert, estephania and in no acute distress. Head/Face: Normocephalic, atraumatic. Eyes: Pupils equal round and reactive to light, extra-ocular motions intact. Lids and lashes normal. Conjunctiva and sclera are non-icteric and not injected. Cornea within normal limits. Periorbital areas with no swelling, redness, or edema. ENT: Nares patent. No nasal discharge, no septal abnormalities noted. Tympanic membranes are normal and external auditory canals are clear. Oropharynx with no redness, swelling, or masses, exudates, or evidence of obstruction, uvula midline. Mucous membranes moist. Neck: Trachea midline, no thyromegaly or masses palpated, and no cervical lymphadenopathy. Supple, full range of motion without nuchal rigidity, or vertebral point tenderness. No Meningismus. Chest/axilla: Normal chest wall appearance and motion. Nontender with no deformity. No lesions are appreciated. Cardiovascular: Regular rate and rhythm with a normal S1 and S2. No gallops, murmurs, or rubs. Normal PMI, no JVD. No pulse deficits. Respiratory: Lungs have equal breath sounds bilaterally, clear to auscultation and percussion. No rales, rhonchi or wheezes noted. No increased work of breathing, no retractions or nasal flaring. Abdomen/GI: Soft, non-tender, with normal bowel sounds. No distension or tympany. No guarding or rebound. No evidence of tenderness throughout. Back: No spinal tenderness. No costovertebral tenderness. Full range of motion. Male : Normal genitalia with no discharge or lesions. Neuro: Awake and alert, GCS 15, oriented to person, place, time, and situation. Cranial nerves II-XII grossly intact. Motor strength 5/5 in all extremities. Sensory grossly intact. Cerebellar exam normal. Normal gait. Psych: Awake, alert, with orientation to person, place and time. Behavior, mood, and affect are within normal limits. 16:02 Skin: cellulitis, that is moderate, on the right leg, induration, that is mild is noted, injury, laceration(s), the wound is approximately 3 cm(s), with a depth of .25 cm(s), of the lateral aspect of right calf, the second wound is approximately 3 cm(s), with a depth of .25 cm(s), of the lateral aspect of right calf, 16:08 ECG was reviewed by the Attending Physician. [facility] Vital Signs: 11:49 BP 117 / 85; Pulse 102; Resp 18; Temp 97.8(O); Pulse Ox 98% on R/A; Weight 120.2 kg; nj1 Height 5 ft. 10 in. ; Pain 8/10; 15:17 BP 126 / 71 RA Supine (auto/reg); Pulse 98 MON; Resp 18 S; Temp 98(O); Pulse Ox 94% on le1 R/A; 11:49 Body Mass Index 38.02 (120.20 kg, 177.8 cm) [facility] 11:49 Pain Scale: Adult [facility] MDM: 11:47 Patient medically screened. [facility] 16:02 Differential diagnosis: contusion, abrasion. Differential Diagnosis altered mental estephania status, sepsis. Data reviewed: vital signs, nurses notes, lab test result(s), radiologic studies, doppler, plain films. Consideration of Admission/Observation Patient was admitted/placed on observation. Escalation of care including admission/observation considered. I considered the following discharge prescriptions or medication management in the emergency department Medications were administered in the Emergency Department. See MAR. Independent interpretation of the following test(s) in the Emergency Department EKG: See my EKG interpretation above. Test considered but Not performed: CT: NO CT CHEST ABD PELVIS. Historians other than the Patient: PT WELL INFORMED. Care significantly affected by the following chronic conditions: Diabetes, Chronic Obstructive Pulmonary Disease, Obesity, Chronic Kidney Disease. Counseling: I had a detailed discussion with the patient and/or guardian regarding the historical points, exam findings, and any diagnostic results supporting the discharge/admit diagnosis, lab results, radiology results, the need for further work-up and treatment in the hospital. 04/07 13:18 Order name: Basic Metabolic Panel; Complete Time: 16:43 [facility] 04/07 13:18 Order name: CBC with Diff; Complete Time: 16:13 [facility] 04/07 13:18 Order name: LFT's; Complete Time: 16:43 [facility] 04/07 13:18 Order name: Magnesium; Complete Time: 16:43 estephania 04/07 13:18 Order name: NT PRO-BNP; Complete Time: 16:43 estephania 04/07 13:18 Order name: PT-INR; Complete Time: 16:13 estephania 04/07 13:18 Order name: Troponin HS; Complete Time: 16:43 estephania 04/07 13:18 Order name: Blood Culture Adult (2) estephania 04/07 13:18 Order name: Lactate w/ 2H reflex if indic.; Complete Time: 15:56 [facility] 04/07 17:26 Order name: PSA Screen EDMS 04/07 17:26 Order name: Thyroid Stimulating Hormone EDMS 04/07 17:26 Order name: CBC with Automated Diff EDMS 04/07 17:26 Order name: CBC with Automated Diff EDMS 04/07 17:26 Order name: CBC with Automated Diff EDMS 04/07 17:26 Order name: CBC with Automated Diff EDMS 04/07 17:26 Order name: CBC with Automated Diff EDMS 04/07 17:26 Order name: Comprehensive Metabolic Panel EDMS 04/07 17:26 Order name: Comprehensive Metabolic Panel EDMS 04/07 17:26 Order name: Comprehensive Metabolic Panel EDMS 04/07 17:26 Order name: Comprehensive Metabolic Panel EDMS 04/07 17:26 Order name: Comprehensive Metabolic Panel EDMS 04/07 17:26 Order name: Lipid Profile EDMS 04/07 17:26 Order name: Lipid Profile EDMS 04/07 17:26 Order name: Magnesium EDMS 04/07 17:26 Order name: Magnesium EDMS 04/07 17:26 Order name: Phosphorus EDMS 04/07 17:26 Order name: Phosphorus EDMS 04/07 20:02 Order name: Urinalysis w/ reflexes EDMS 04/07 20:51 Order name: Glucose, Ancillary Testing EDMS 04/07 13:18 Order name: XRAY Chest (1 view); Complete Time: 14:38 [facility] 04/07 13:18 Order name: US Extremity Venous W Compression Rober; Complete Time: 14:38 estephania 04/07 17:26 Order name: Lower Extremity Arterial Bilat EDMS 04/07 13:18 Order name: EKG; Complete Time: 13:18 [facility] 04/07 13:18 Order name: Cardiac monitoring; Complete Time: 13:21 [facility] 04/07 13:18 Order name: EKG - Nurse/Tech; Complete Time: 14:46 04/07 13:18 Order name: IV Saline Lock; Complete Time: 14:46 04/07 13:18 Order name: Labs collected and sent; Complete Time: 14:46 04/07 13:18 Order name: O2 Per Protocol; Complete Time: 14:47 04/07 13:18 Order name: O2 Sat Monitoring; Complete Time: 14:46 04/07 13:18 Order name: Wound Care; Complete Time: 15:29 [facility] 04/07 14:51 Order name: Labs - recollect needed: Please recollect all labs-hemolyzed; Complete em1 Time: 15:28 EC:08 Rate is 94 beats/min. Rhythm is regular. QRS [place] is Normal. VA interval is normal. QRS estephania interval is normal. QT interval is normal. No Q waves. T waves are Normal. No ST changes noted. Clinical impression: NSR w/ Non-specific ST/T Changes and No evidence of ischemia. Interpreted by me. Reviewed by me. Administered Medications: 15:00 Drug: morphine IVP or IV 4 mg IVP once over 4 mins Route: IVP; Infused Over: 4 mins; le1 Site: left forearm; 15:14 Follow up: Response: No adverse reaction; Pain is decreased le1 15:00 Drug: Ondansetron IVP 4 mg IVP once; over 2 minutes Route: IVP; Site: left forearm; le1 15:15 Follow up: Response: No adverse reaction; Nausea is decreased le1 15:14 Drug: Mupirocin Topical Ointment 2 % 1 application Topical once Route: Topical; Site: le1 affected area; 15:14 Follow up: Response: No adverse reaction le1 15:15 Drug: NS 0.9% IV 1000 ml IV at 1 bolus Per protocol; 1000 mL bolus Route: IV; Rate: 1 le1 bolus; Site: left forearm; 18:23 Follow up: Response: No adverse reaction; IV Status: Completed infusion le1 15:18 Drug: Piperacillin-Tazobactam IVPB 3.375 grams IVPB once over 60 mins; (mix in NS 100 le1 mL) Route: IVPB; Infused Over: 60 mins; Site: left forearm; 16:32 Follow up: Response: No adverse reaction; IV Status: Completed infusion le1 16:12 Drug: Tetanus Toxoid,Adsorbed IM 0.5 ml IM once; Provide Vaccine Information Statement mb9 (VIS). 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[employer]; Exp: ThuJun 04 2026; Lot #: [id number]; Series: 1 of 1; Patient Consent: Obtained; Date/Time: ; Source Name: Tutu Harrington; Source Relationship: Self; Address Information: [address] [place] [address], [place] [address]; ; Education: Provided; VIS Presented Date: ; VIS Publication: Tetanus/Diphtheria (Td) VIS 11/22/2013 (historic)} Route: IM; Site: right deltoid; 16:26 Follow up: Response: No adverse reaction le1 17:28 Follow up: Response: No adverse reaction le1 16:25 Drug: NS 0.9% IV 1000 ml IV at 125 ml/hr continuous Route: IV; Rate: 125 ml/hr; Site: mb9 left forearm; 16:27 Drug: levofloxacin IVPB 500 mg 100 ml IVPB once over 60 mins Volume: 100 ml; Route: le1 IVPB; Infused Over: 60 mins; Site: left forearm; 18:23 Follow up: Response: No adverse reaction; IV Status: Completed infusion le1 Disposition Summary: 04/07/24 16:18 Hospitalization Ordered Notes: Hospitalization Status: Inpatient Admission estephania Provider: Maggie Domínguez cha Condition: Fair estephania Problem: new estephania Symptoms: have improved estephania Bed/Room Type: Standard estephania Location: Telemetry/MedSurg (Inpatient)(04/07/24 20:44) [facility] Room Assignment: [facility](04/07/24 20:44) [facility] Diagnosis - Cellulitis and acute lymphangitis of other parts of limb estephania - Venous insufficiency (chronic) (peripheral) estephania - COPD/ Chronic obstructive pulmonary disease, unspecified estephania - Tobacco abuse counseling estephania - Tobacco use estephania - Edema, unspecified estephania - Unspecified cirrhosis of liver estephania Forms: - Medication Reconciliation Form estephania - SBAR form estephania - Leadership Thank You Letter estephania Signatures: Dispatcher [employer] Jayme Rodriguez MD MD cha Martinez, Eric em1 Gunjan Shipley RN RN mb9 Alexandria Huang RN RN nj1 Tsering Angel kmf John Smith RN RN le1 Corrections: (The following items were deleted from the chart) 16:24 16:18 Telemetry/MedSurg (Inpatient) estephania em1 16:24 16:18 estephania em1 16:44 16:18 Type 2 diabetes mellitus with hyperglycemia estephania estephania 16:53 16:24 [facility] ER HOLD em1 em1 16:53 16:24 ERHOLD- em1 em1 17:30 16:53 Telemetry/MedSurg (Inpatient) em1 em1 17:30 16:53 em1 em1 20:44 17:30 [facility] ER HOLD em1 kmf 20:44 17:30 ERHOLD- em1 kmf
[2024-04-07 16:27] LABS: Albumin 2.6 g/dL (3.4-5.0); Albumin/Globulin Ratio 0.6 (1.1-1.8); Anion Gap 9.1 mEq/L (5.0-15.0); Bilirubin Direct 0.5 mg/dL (0-0.2); Bilirubin Indirect, Calculated 1.5 mg/dL (0.2-0.8); Globulin 4.7 g/dL (2.3-3.5); Magnesium 2.2 mg/dL (1.6-2.4); Potassium 4.1 mEq/L (3.5-5.1); Protein, Total 7.3 g/dL (6.4-8.2); Troponin High Sensitivity 8.5 pg/mL (<58.9)
[2024-04-07] MEDS ORDERED: ACETAMINOPHEN 500 MG TAB PO PRN (17:13)
[2024-04-07] MEDS: NA CHLORIDE 0.9% 1,000 ML IV SCH (18:00)
--- NOTE | 2024-04-07 18:10 | P.HP ---
Certification for Inpatient Patient admitted to: Inpatient With expected LOS: >2 Midnights <Danita Tang Wing - Last Filed: 04/07/24 18:36> Patient History Date of Service: 04/07/24 Reason for admission: PAD, cellulitis, COPD, incontinence History of Present Illness: Mr. Harrington is a 68-year-old gentleman with a past medical history of COPD, diabetes, arthritis, BPH. He is a heavy smoker and heavy alcohol user in the past. He arrives to the emergency department complaining of needing a medication refill. He request Flomax and diabetes medications. He was noted to have hyperemic lower extremities with the right being edematous. He states he cut his leg 3 days ago. Laboratory evaluation revealed a white count of 8.2, H/H 15/43.6, platelets 163, liver enzymes normal however bili elevated at 2.0, albumin 2.6, mag 2.2, proBNP 319, INR 1.38, troponin 8.5, lactic acid 1.0. Imaging: Chest x-ray shows mild COPD and ultrasound shows no evidence of left or right DVT. In the emergency room he was treated with a 1 L normal saline bolus, started on normal saline at 125 an hour, given Levaquin 500 mg IV piggyback, Zosyn 3.375 g IV piggyback, he was given morphine 4 mg IV and Zofran 4 mg IV and his tetanus immunization was updated. On exam he is deconditioned, unsteady on ambulation, and smells strongly of urine. His lower extremities are hyperemic and his right lower leg is roughly twice the size of his left with an ulceration to the lateral aspect of his calf. We will admit him for further investigation and treatment and arterial studies of his lower extremities. Home medications list reviewed: Yes ( pharmacy) - Past Medical/Surgical History Has patient received pneumonia vaccine in the past: No -: DM -: COPD -: Arthritis -: BPH -: Denies Psychosocial/ Personal History: Lives with his Son. Heavy smoker. Past EtOH. Incontinent of urine. - Social History Smoking Status: Heavy Tobacco smoker (>10 cigarettes/day) Smoking therapy provided: No Patient receptive to therapy: No Alcohol use: Yes CD- Drugs: No Caffeine use: Yes Place of Residence: Home <ClydeDanita Dimas - Last Filed: 04/07/24 18:36> Date of Service: 04/07/24 <Maggie Domínguez - Last Filed: 04/07/24 18:38> Allergies No Known Allergies Allergy (Unverified 04/07/24 17:31) Review of Systems 10-point ROS is otherwise unremarkable General: Malaise Integumentary: As per HPI <Danita Tang Wing - Last Filed: 04/07/24 18:36> Physical Examination - Physical Exam General: Oriented x3, Obese, Other (Deconditioned, smells strongly of urine) HEENT: Atraumatic, Normocephalic Neck: Supple Respiratory: Normal air movement Cardiovascular: Regular rate/rhythm, Normal S1 S2 Capillary refill: Other (Bilateral lower extremities hyperemic) Gastrointestinal: Soft and benign Musculoskeletal: Other (Right lower extremity twice the size of left) Integumentary: Arterial ulcer (Right lateral calf), Other (Bilateral lower extremities hyperemic) Neurological: Normal speech, Abnormal gait Lymphatics: No axilla or inguinal lymphadenopathy External genitalia: Deferred Rectal: Deferred - Studies Laboratory Data (last 24 hrs) 04/07/24 04/07/24 04/07/24 15:29 15:29 15:29 WBC 8.20 Hgb 15.0 Hct 43.6 Plt Count 163 PT 15.0 H INR 1.38 Sodium 135 L Potassium 4.1 BUN 20 H Creatinine 0.79 Glucose 92 Magnesium 2.2 Total Bilirubin 2.0 H AST 37 ALT 31 Alkaline Phosphatase 72 <Danita Tang Wing - Last Filed: 04/07/24 18:36> - Studies Laboratory Data (last 24 hrs) 04/07/24 04/07/24 04/07/24 15:29 15:29 15:29 WBC 8.20 Hgb 15.0 Hct 43.6 Plt Count 163 PT 15.0 H INR 1.38 Sodium 135 L Potassium 4.1 BUN 20 H Creatinine 0.79 Glucose 92 Magnesium 2.2 Total Bilirubin 2.0 H AST 37 ALT 31 Alkaline Phosphatase 72 <Maggie Domínguez - Last Filed: 04/07/24 18:38> Assessment and Plan - Plan PAD with cellulitis Vancomycin 1.25gm IVPB BID, pharmacy to adjust Arterial studies Atorvastatin 80mg po q hs Elevate and offload Lovenox 1mg/kg sc BID Urinary incontinence PSA flomax 0.4 mg po q hs glucose control UA/UC Rocephin IVPB daily Diabetes Glucose monitoring with SSI coverage I&O Hgb A1c COPD Nebulizers Monitor and trend SpO2 Tobacco abuse recommend cessation Hx of ETOH abuse DT parameters VRE/GI prophylaxis: Lovenox/Protonix - Advance Directives Does patient have a Living Will: No Does patient have a Durable POA for Healthcare: No <Danita Tang - Last Filed: 04/07/24 18:36> - Plan Pt seen and examined. I agree with the note by the DEPENDENCY DIRECTOR. Pt is a 68 yo male with past medical history of COPD, DM, BPH and arthritis who presents with RLE cellulitis. The erythema started a few days ago and progressively worsened. Pt sustained an injury on his right leg after he fall at home. On admission, lab studies show wbc 8.2, Hgb 15.0, K 4.1, BNP 319, and Cr 0.79. At bedside, pt is in NAD and unkempt. Pt also wants to refill his home meds. A/P: RLE cellulitis: Will continue iv Vanc and follow up wound cx. Hx of COPD: Continue prn oxygen and duoneb DM II: Continue accuchek, SSI and ADA diet. BPH: flomax. Arthritis: Will continue prn pain med. DVT ppx: heparin Code: full. <Maggie Domínguez - Last Filed: 04/07/24 18:38>
--- NOTE | 2024-04-07 19:19 | RAD REPORT ---
EXAM DESCRIPTION: US - Lower Extremity Arterial Bilat - 04/07/2024 7:00 pm CLINICAL HISTORY: PAD COMPARISON: No comparisons TECHNIQUE: Bilateral lower extremity arterial Doppler examination was performed. FINDINGS: Triphasic waveforms are seen involving the right common femoral artery to the proximal superficial fe moral artery. Monophasic waveforms distal right superficial femoral artery distal. Triphasic waveform is seen left common femoral artery and superficial femoral artery. Biphasic wavefo rm seen left popliteal distal. No high-grade stenosis or occlusion. IMPRESSION: [id number] left-sided peripheral vascular disease below the level of the left supe rficial femoral artery.
[2024-04-07 20:01] LABS: Specific Gravity 1.014 (1.005-1.030); Sqamous Epithelial <5 /HPF (None Seen); Urine Bacteria <20 /HPF (<20); Urine Bilirubin NEGATIVE (Negative); Urine Blood 1+ (Negative); Urine Clarity Clear (Clear); Urine Color Light-Yellow (Yellow); Urine Culture Reflex Order NOT NEEDED; Urine Glucose NEGATIVE (Negative); Urine Ketones NEGATIVE (Negative); Urine Microscopic Reflex YN ORDER UMIC; Urine Mucus Slight /HPF (None Seen); Urine Nitrite NEGATIVE (Negative); Urine Protein NEGATIVE (Negative); Urine RBC <5 /HPF (None Seen); Urine Urobilinogen Normal (Normal); Urine WBC <5 /HPF (<5); Urine pH 5.5 (5.0-7.0)
[2024-04-07] MEDS: ALBUTEROL 2.5 MG/3 ML NEB SOL NEB SCH (20:15)
[2024-04-07] MEDS: ARFORMOTEROL TARTRATE 15 MCG/2 ML VIAL.NEB NEB SCH (20:15)
[2024-04-07] MEDS ORDERED: ALBUTEROL 2.5 MG/3 ML NEB SOL ONE (20:22)
[2024-04-07] MEDS ORDERED: ARFORMOTEROL TARTRATE 15 MCG/2 ML VIAL.NEB ONE (20:23)
[2024-04-07] MEDS ORDERED: ENOXAPARIN 100 MG/ML SYR SQ ONE (20:41)
[2024-04-07] MEDS ORDERED: ATORVASTATIN 40 MG TAB ONE (20:41)
[2024-04-07] MEDS ORDERED: TAMSULOSIN 0.4 MG SR CAP ONE (20:41)
[2024-04-07] MEDS ORDERED: chlordiazePOXIDE HCl 5 MG CAP PO ONE (20:42)
[2024-04-07] MEDS: INSULIN REGULAR (HUMAN) 100 UNIT/ML SQ SCH (20:43)
[2024-04-07] MEDS: TAMSULOSIN 0.4 MG SR CAP PO SCH (20:52)
[2024-04-07] MEDS: chlordiazePOXIDE HCl 5 MG CAP PO SCH (20:52)
[2024-04-07] MEDS: ENOXAPARIN 100 MG/ML SYR SQ SCH (20:53)
[2024-04-07] MEDS: ATORVASTATIN 80 MG TAB PO SCH (20:53)
[2024-04-07] MEDS: VANCOMYCIN 1.75 GM in NA CHLORIDE 0.9% 500 ML IVPB SCH (20:54)
[2024-04-07 22:31] VITALS: O2SAT 94
[2024-04-08 07:04] LABS: Absolute Eosinophils 0.1 K/uL (0-0.5); Absolute Lymphocytes (CBC) 1.4 K/uL (0.7-4.9); Absolute Monocytes 0.7 K/uL (0.1-1.3); Absolute Neutrophil 5.1 K/uL (1.8-8.0); Basophils % 0.5 % (0-1.3); Eosinophils % 1.3 % (0-4.4); Hematocrit 42.5 % (39.6-49.0); Hemoglobin 14.7 g/dL (13.6-17.9); Lymphocytes % 18.9 % (15.3-44.8); MCH 31.3 pg (27.0-35.0); MCHC 34.5 g/dL (32.0-36.0); MCV 90.8 fL (80-100); MPV 8.5 fL (7.6-11.3); Monocytes % 9.7 % (3.3-12.3); Neutrophils % 69.6 % (41.7-73.7); Nucleated Red Blood Cells % 0.1 % (0-0); Platelets 174 thou/uL (152-406); RBC Red Blood Cell Count 4.68 M/uL (4.33-5.43); Red Cell Distribution Width 14.3 % (12.1-15.2)
[2024-04-08 07:22] LABS: Albumin 2.4 g/dL (3.4-5.0); Albumin/Globulin Ratio 0.5 (1.1-1.8); Anion Gap 6.1 mEq/L (5.0-15.0); Bilirubin Total 1.2 mg/dL (0.2-1.0); Globulin 4.4 g/dL (2.3-3.5); Magnesium 1.8 mg/dL (1.6-2.4); Phosphorus 2.8 mg/dL (2.5-4.9); Potassium 4.1 mEq/L (3.5-5.1); Protein, Total 6.8 g/dL (6.4-8.2)
[2024-04-08] MEDS ORDERED: ENOXAPARIN 40 MG/0.4 ML SQ SCH (09:00)
[2024-04-08] MEDS: CEFTRIAXONE 1,000 MG in NA CHLORIDE 0.9% 50 ML IVPB SCH (09:01)
[2024-04-08] MEDS: PNEUMOCOCCAL VACCINE 0.5 ML IMVAC ONE (12:00)
--- NOTE | 2024-04-08 12:27 | P.PN ---
Subjective Date of Service: 04/08/24 Chief Complaint: PAD, cellulitis, COPD, incontinence Pt is resting comfortably in bed. He was sleeping when I saw him. He denies any fever, chills, nausea or vomiting. Will change iv vanc to Doxy. No other issues overnight. Review of Systems General: Other (unkempt), Unremarkable Eyes: Unremarkable ENT: Unremarkable Respiratory: Unremarkable Cardiovascular: Unremarkable Gastrointestinal: Unremarkable Genitourinary: Unremarkable Musculoskeletal: Unremarkable Integumentary: Lesions Neurological: Unremarkable Lymphatics: Unremarkable Physical Examination - Vital Signs Temperature: 97.8 F Blood Pressure: 145/75 Pulse: 94 Respirations: 18 Pulse Ox (%): 94 - Physical Exam General: Alert, In no apparent distress, Oriented x3, Other (unkempt) HEENT: Atraumatic, Normocephalic, PERRLA Neck: Supple, 2+ carotid pulse no bruit Respiratory: Clear to auscultation bilaterally, Normal air movement Cardiovascular: No edema, Normal pulses, Regular rate/rhythm Capillary refill: <2 Seconds Gastrointestinal: Normal bowel sounds, Soft and benign, Non-distended Musculoskeletal: No clubbing, No swelling, No contractures Integumentary: No rashes, No breakdown, No significant lesion Neurological: Normal gait, Normal speech, Normal strength at 5/5 x4 extr Lymphatics: No axilla or inguinal lymphadenopathy - Studies Laboratory Data (last 24 hrs) 04/07/24 04/07/24 04/07/24 15:29 15:29 15:29 WBC 8.20 Hgb 15.0 Hct 43.6 Plt Count 163 PT 15.0 H INR 1.38 Sodium 135 L Potassium 4.1 BUN 20 H Creatinine 0.79 Glucose 92 Magnesium 2.2 Total Bilirubin 2.0 H AST 37 ALT 31 Alkaline Phosphatase 72 Assessment And Plan - Plan RLE cellulitis: Will continue iv doxy. off iv vanc and follow up wound cx. Hx of COPD: Continue prn oxygen and duoneb DM II: Continue accuchek, SSI and ADA diet. BPH: flomax. PSA is 129. Pt needs to follow up with Urology in clinic. Arthritis: Will continue prn pain med DVT ppx: heparin Code: full DIspo: Pending hospital course
[2024-04-08 18:50] VITALS: BMI 38.0
[2024-04-08] MEDS: DOXYCYCLINE 100 MG in NA CHLORIDE 0.9% 100 ML IVPB SCH (20:53)
[2024-04-08] MEDS: MORPHINE 4 MG/ML SYR IV PRN (21:05)
[2024-04-09 08:05] LABS: Absolute Eosinophils 0.1 K/uL (0-0.5); Absolute Lymphocytes (CBC) 1.1 K/uL (0.7-4.9); Absolute Monocytes 0.4 K/uL (0.1-1.3); Absolute Neutrophil 2.6 K/uL (1.8-8.0); Basophils % 0.5 % (0-1.3); Eosinophils % 2.5 % (0-4.4); Hematocrit 43.3 % (39.6-49.0); Lymphocytes % 26.4 % (15.3-44.8); MCH 31.8 pg (27.0-35.0); MCHC 34.7 g/dL (32.0-36.0); MCV 91.5 fL (80-100); MPV 7.9 fL (7.6-11.3); Monocytes % 9.8 % (3.3-12.3); Neutrophils % 60.8 % (41.7-73.7); Nucleated Red Blood Cells % 0.1 % (0-0); Platelets 166 thou/uL (152-406); RBC Red Blood Cell Count 4.73 M/uL (4.33-5.43); Red Cell Distribution Width 14.9 % (12.1-15.2)
[2024-04-09 08:16] LABS: Albumin 2.3 g/dL (3.4-5.0); Albumin/Globulin Ratio 0.5 (1.1-1.8); Bilirubin Total 0.8 mg/dL (0.2-1.0); Globulin 4.3 g/dL (2.3-3.5); Protein, Total 6.6 g/dL (6.4-8.2)
--- NOTE | 2024-04-09 09:07 | P.DS ---
Admission Date: 04/07/24 Discharge Date: 04/09/24 Reason for Admission: PAD, cellulitis, COPD, incontinence Consultations: Dr. Moe Brief History of Present Illness: Mr. Harrington is a 68-year-old gentleman with a past medical history of COPD, diabetes, arthritis, BPH. He is a heavy smoker and heavy alcohol user in the past. He arrives to the emergency department complaining of needing a medication refill. He request Flomax and diabetes medications. He was noted to have hyperemic lower extremities with the right being edematous. He states he cut his leg 3 days ago. Laboratory evaluation revealed a white count of 8.2, H/H 15/43.6, platelets 163, liver enzymes normal however bili elevated at 2.0, albumin 2.6, mag 2.2, proBNP 319, INR 1.38, troponin 8.5, lactic acid 1.0. Imaging: Chest x-ray shows mild COPD and ultrasound shows no evidence of left or right DVT. In the emergency room he was treated with a 1 L normal saline bolus, started on normal saline at 125 an hour, given Levaquin 500 mg IV piggyback, Zosyn 3.375 g IV piggyback, he was given morphine 4 mg IV and Zofran 4 mg IV and his tetanus immunization was updated. On exam he is deconditioned, unsteady on ambulation, and smells strongly of urine. His lower extremities are hyperemic and his right lower leg is roughly twice the size of his left with an ulceration to the lateral aspect of his calf. We will admit him for further investigation and treatment and arterial studies of his lower extremities. Hospital Course: Mr. Harrington seems to be back at his baseline.. Lower extremities improving with antibiotic therapy, arterial Doppler shows [place] phasic waveforms to the lower right leg, and mild to moderate disease in the left. His PSA is markedly elevated. Renal function sameer. Will need continued follow-up with Dr. Pérez. Will discharge with cefdinir and Flomax. <Danita Tang - Last Filed: 04/09/24 09:02> Admission Date: 04/07/24 Discharge Date: 04/09/24 Hospital Course: Pt seen and examined. I agree with the note by the EDI PROGRAMMER ANALYST. Will continue cefdinir as prescribed. Follow with Dr. Moe for further evaluation of the elevated PSA. Take flomax. <Maggie Domínguez - Last Filed: 04/09/24 11:48> Disposition: ROUTINE DISCHARGE Discharge Condition: GOOD Vital Signs/Physical Exam: Temp Pulse Resp BP Pulse Ox 97.6 F 94 H 14 122/70 93 04/09/24 08:00 04/09/24 08:00 04/09/24 08:00 04/09/24 08:00 04/09/24 08:00 General: Alert, In no apparent distress, Oriented x3 HEENT: Atraumatic, Normocephalic Neck: Supple Respiratory: Normal air movement Cardiovascular: No edema, Normal pulses, Regular rate/rhythm, Normal S1 S2 Capillary refill: <2 Seconds Gastrointestinal: Soft and benign Musculoskeletal: No clubbing Integumentary: Arterial ulcer (Right lateral lower ext) Neurological: Normal speech, Normal tone, Normal affect Lymphatics: No axilla or inguinal lymphadenopathy External genitalia: Deferred Rectal: Deferred Laboratory Data at Discharge: WBC 4.30 thou/uL (4.3-10.9) 04/09/24 07:48 Hgb 15.0 g/dL (13.6-17.9) 04/09/24 07:48 Hct 43.3 % (39.6-49.0) 04/09/24 07:48 Plt Count 166 thou/uL (152-406) 04/09/24 07:48 PT 15.0 SECONDS (9.4-12.5) H 04/07/24 15:29 INR 1.38 04/07/24 15:29 Sodium 138 mEq/L (136-145) 04/09/24 07:48 Potassium 4.0 mEq/L (3.5-5.1) 04/09/24 07:48 BUN 15 mg/dL (7-18) 04/09/24 07:48 Creatinine 0.65 mg/dL (0.70-1.30) L 04/09/24 07:48 Glucose 116 mg/dL (74-106) H 04/09/24 07:48 Phosphorus 2.8 mg/dL (2.5-4.9) 04/08/24 06:24 Magnesium 1.8 mg/dL (1.6-2.4) 04/08/24 06:24 Total Bilirubin 0.8 mg/dL (0.2-1.0) 04/09/24 07:48 AST 28 U/L (15-37) 04/09/24 07:48 ALT 26 U/L (16-61) 04/09/24 07:48 Alkaline Phosphatase 73 U/L (45-117) 04/09/24 07:48 Triglycerides 57 mg/dL (<150) 04/08/24 06:24 Cholesterol 53 mg/dL (<200) 04/08/24 06:24 HDL Cholesterol 18 mg/dL (40-60) L 04/08/24 06:24 Cholesterol/HDL Ratio 2.94 04/08/24 06:24 <Tang,Danita Wing - Last Filed: 04/09/24 09:02> Vital Signs/Physical Exam: Temp Pulse Resp BP Pulse Ox 97.6 F 94 H 14 122/70 93 04/09/24 08:00 04/09/24 08:00 04/09/24 08:00 04/09/24 08:00 04/09/24 08:00 Laboratory Data at Discharge: WBC 4.30 thou/uL (4.3-10.9) 04/09/24 07:48 Hgb 15.0 g/dL (13.6-17.9) 04/09/24 07:48 Hct 43.3 % (39.6-49.0) 04/09/24 07:48 Plt Count 166 thou/uL (152-406) 04/09/24 07:48 PT 15.0 SECONDS (9.4-12.5) H 04/07/24 15:29 INR 1.38 04/07/24 15:29 Sodium 138 mEq/L (136-145) 04/09/24 07:48 Potassium 4.0 mEq/L (3.5-5.1) 04/09/24 07:48 BUN 15 mg/dL (7-18) 04/09/24 07:48 Creatinine 0.65 mg/dL (0.70-1.30) L 04/09/24 07:48 Glucose 116 mg/dL (74-106) H 04/09/24 07:48 Phosphorus 2.8 mg/dL (2.5-4.9) 04/08/24 06:24 Magnesium 1.8 mg/dL (1.6-2.4) 04/08/24 06:24 Total Bilirubin 0.8 mg/dL (0.2-1.0) 04/09/24 07:48 AST 28 U/L (15-37) 04/09/24 07:48 ALT 26 U/L (16-61) 04/09/24 07:48 Alkaline Phosphatase 73 U/L (45-117) 04/09/24 07:48 Triglycerides 57 mg/dL (<150) 04/08/24 06:24 Cholesterol 53 mg/dL (<200) 04/08/24 06:24 HDL Cholesterol 18 mg/dL (40-60) L 04/08/24 06:24 Cholesterol/HDL Ratio 2.94 04/08/24 06:24 <Maggie Domínguez - Last Filed: 04/09/24 11:48> Diet: Regular Activity: Ad anibal <Danita Tang - Last Filed: 04/09/24 09:02> <Maggie Domínguez - Last Filed: 04/09/24 11:48> Home Medications: Cefdinir [Cefdinir*] 300 mg PO BID #20 cap 04/09/24 Tamsulosin [Flomax*] 0.4 mg PO BEDTIME #30 cap 04/09/24 New Medications: Cefdinir [Cefdinir*] 300 mg PO BID #20 cap Tamsulosin [Flomax*] 0.4 mg PO BEDTIME #30 cap Physician Discharge Instructions: Mr. Harrington seems to be back at his baseline.. Lower extremities improving with antibiotic therapy, arterial Doppler shows mono phasic waveforms to the lower right leg, and mild to moderate disease in the left. His PSA is markedly elevated (291). Renal function sameer. Will need continued follow-up with Dr. Pérez. Will discharge with cefdinir and Flomax. IMPRESSION: No sonographic evidence of left or right lower extremity deep venous thrombosis. Triphasic waveforms are seen involving the right common femoral artery to the proximal superficial femoral artery. Monophasic waveforms distal right superficial femoral artery distal. Triphasic waveform is seen left common femoral artery and superficial femoral artery. Biphasic waveform seen left popliteal distal. No high-grade stenosis or occlusion. IMPRESSION: [id number] left-sided peripheral vascular disease below the level of the left superficial femoral artery Okay to DC IV and DC home Follow-up with primary care provider in 1 to 2 weeks Follow-up with urology in 1 to 2-weeks Please call the inpatient unit for any questions or concerns regarding hospital stay Return to the ER for worsening symptoms Followup: Giovanna Gorman, GALINDO [Primary Care Provider] - Seven Moe [ACTIVE - CAN ADMIT] -
[2024-04-09 21:29] VITALS: TEMP 97.9
[2024-04-10 07:44] LABS: Absolute Eosinophils 0.2 K/uL (0-0.5); Absolute Lymphocytes (CBC) 1.4 K/uL (0.7-4.9); Absolute Monocytes 0.4 K/uL (0.1-1.3); Absolute Neutrophil 2.5 K/uL (1.8-8.0); Basophils % 0.5 % (0-1.3); Eosinophils % 3.6 % (0-4.4); Hematocrit 44.8 % (39.6-49.0); Hemoglobin 15.6 g/dL (13.6-17.9); Lymphocytes % 30.9 % (15.3-44.8); MCH 31.7 pg (27.0-35.0); MCHC 34.9 g/dL (32.0-36.0); MCV 90.9 fL (80-100); MPV 7.8 fL (7.6-11.3); Monocytes % 9.5 % (3.3-12.3); Neutrophils % 55.5 % (41.7-73.7); Nucleated Red Blood Cells % 0.1 % (0-0); Platelets 198 thou/uL (152-406); RBC Red Blood Cell Count 4.93 M/uL (4.33-5.43); Red Cell Distribution Width 14.6 % (12.1-15.2)
[2024-04-10 08:05] LABS: Albumin 2.5 g/dL (3.4-5.0); Albumin/Globulin Ratio 0.6 (1.1-1.8); Anion Gap 5.9 mEq/L (5.0-15.0); Bilirubin Total 0.8 mg/dL (0.2-1.0); Globulin 4.4 g/dL (2.3-3.5); Potassium 3.9 mEq/L (3.5-5.1); Protein, Total 6.9 g/dL (6.4-8.2)
[2024-04-10 08:55] VITALS: BP 135/81
[2024-04-10 08:55] LABS: Blood Morphology Comment NOT SEEN (NOT SEEN); Platelet Estimate ADEQ; White Blood Cell Scan OK (OK)
--- NOTE | 2024-04-11 13:11 | EKG ---
Test Date: 2024-04-07 Test Time: 14:08:37 Sales Product Manager: MB MEASUREMENT RESULTS: Intervals: Rate: 94 CA: 168 QRSD: 138 QT: 378 QTc: 472 [place]: P: 78 CA: 168 QRS: 77 T: 55 INTERPRETIVE STATEMENTS: Normal sinus rhythm Right bundle branch block Abnormal ECG No previous ECG available for comparison Electronically Signed On 04-11-24 13:04:23 CDT by Roman Mims
== END 2024-04-10 09:00 | disposition home or self-care (01) | DRG 603 ==
LOC: ER 11:31 → ERHOLD 17:13 → 2ND 21:48
PROVIDERS: ADMIT Hospitalist; ATTEND Hospitalist
DX: L03.115 Cellulitis of right lower limb (principal); L97.229 Non-pressure chronic ulcer of left calf with unspecified severity; E11.622 Type 2 diabetes mellitus with other skin ulcer; N18.9 Chronic kidney disease, unspecified; E11.22 Type 2 diabetes mellitus with diabetic chronic kidney disease; E11.51 Type 2 diabetes mellitus with diabetic peripheral angiopathy without gangrene; M19.90 Unspecified osteoarthritis, unspecified site; J44.9 Chronic obstructive pulmonary disease, unspecified; E66.9 Obesity, unspecified; I87.2 Venous insufficiency (chronic) (peripheral); N40.1 Benign prostatic hyperplasia with lower urinary tract symptoms; N39.498 Other specified urinary incontinence; K74.60 Unspecified cirrhosis of liver; S81.811A Laceration without foreign body, right lower leg, initial encounter; F17.210 Nicotine dependence, cigarettes, uncomplicated; Z71.6 Tobacco abuse counseling; Z68.37 Body mass index [BMI] 37.0-37.9, adult; Z28.310 Unvaccinated for COVID-19
CPT/HCPCS: 36415; 71045; 80048; 80053; 80061; 80076; 81001; 82947; 83605; 83735; 83880; 84100; 84443; 84484; 85025; 85610; 87040; 87086; 87088; 90471; 93005; 93925; 93970; 94640; 96365; 96366; 96375; 99285; G0103; J0696; J1650; J2405; J2543; J7030; J7040; J7605; J7613

== ENCOUNTER 2024-11-24 01:00 | Inpatient (IN) | payer OTHER ==
[2024-11-24 02:45] LABS: Absolute Basophils 0.1 K/uL (0-0.5); Absolute Lymphocytes (CBC) 0.6 K/uL (0.7-4.9); Absolute Monocytes 0.4 K/uL (0.1-1.3); Absolute Neutrophil 14.4 K/uL (1.8-8.0); Basophils % 0.3 % (0-1.3); Hemoglobin 11.8 g/dL (13.6-17.9); Lymphocytes % 4.1 % (15.3-44.8); MCH 32.3 pg (27.0-35.0); MCHC 35.7 g/dL (32.0-36.0); MCV 90.5 fL (80-100); MPV 7.3 fL (7.6-11.3); Monocytes % 2.3 % (3.3-12.3); Neutrophils % 93.3 % (41.7-73.7); Platelets 167 thou/uL (152-406); RBC Red Blood Cell Count 3.65 M/uL (4.33-5.43); Red Cell Distribution Width 16.1 % (12.1-15.2)
[2024-11-24] MEDS ORDERED: ONDANSETRON 4 MG/2 ML VIAL ONE (02:45)
[2024-11-24] MEDS ORDERED: MORPHINE 2 MG/ML SYR ONE (02:46)
[2024-11-24] MEDS ORDERED: IBUPROFEN 400 MG TAB ONE (02:46)
[2024-11-24 03:01] LABS: PT Prothrombin Time 15.5 SECONDS (9.4-12.5); PTT, Activated Partial Thromb 32.2 SECONDS (24.3-36.9); Protime INR 1.48
[2024-11-24 03:08] LABS: Troponin High Sensitivity 45.2 pg/mL (<58.9)
[2024-11-24 03:10] LABS: Albumin 2.1 g/dL (3.4-5.0); Albumin/Globulin Ratio 0.5 (1.1-1.8); Anion Gap 8.7 mEq/L (5.0-15.0); Bilirubin Total 1.1 mg/dL (0.2-1.0); Globulin 4.5 g/dL (2.3-3.5); Potassium 3.7 mEq/L (3.5-5.1); Protein, Total 6.6 g/dL (6.4-8.2)
[2024-11-24 03:12] LABS: Specific Gravity 1.024 (1.005-1.030); Sqamous Epithelial None Seen /HPF (None Seen); Urine Bacteria >50 /HPF (<20); Urine Bilirubin NEGATIVE (Negative); Urine Blood 3+ (OVER) (Negative); Urine Clarity Extremely Turbid (Clear); Urine Color Light-Orange (Yellow); Urine Culture Reflex Order REFLEXED; Urine Glucose NEGATIVE (Negative); Urine Ketones TRACE (Negative); Urine Microscopic Reflex YN ORDER UMIC; Urine Mucus Slight /HPF (None Seen); Urine Nitrite 1+ (Negative); Urine Protein 1+ (Negative); Urine RBC >50 /HPF (None Seen); Urine Urobilinogen 1+ (Normal); Urine WBC >50 /HPF (<5); Urine WBC Clump Occasional /HPF (None Seen); Urine pH 7.5 (5.0-7.0)
[2024-11-24 03:39] LABS: SARS-CoV-2 Antigen CONTROL BLUE LINE VIS/BG OK; SARS-CoV-2 Antigen Rapid Res Negative (Negative)
[2024-11-24 04:31] LABS: Band Neutrophils 32 % (0-1); Blood Morphology Comment NOT SEEN (NOT SEEN); Differential Total Cells Count 100; Lymphocytes 4 % (15-42); Monocytes 2 % (0-10); Platelet Estimate ADEQ; Segmented Neutrophils 62 % (40-80)
[2024-11-24] MEDS ORDERED: CEFTRIAXONE 1000 MG/VIAL ONE (04:32)
[2024-11-24] MEDS ORDERED: NA CHLORIDE 0.9% 500 ML ONE ×2 (04:41→05:58)
--- NOTE | 2024-11-24 05:41 | RAD REPORT ---
EXAM: XR Chest, 1 View CLINICAL HISTORY: The patient is 69 years old and is Male; FEVER TECHNIQUE: Frontal view of the chest. COMPARISON: Chest radiograph September 29, 2024 FINDINGS: LUNGS: Mild coarse interstitial markings are present. Bibasilar opacities are noted. There is no lobar consolidation. Questionable pulmonary nodules are present. PLEURAL SPACE: Bilateral pleural effusions are noted. No pneumothorax. HEART: Unremarkable. No cardiomegaly. MEDIASTINUM: Unremarkable. Normal mediastinal contour. BONES/JOINTS: Extensive sclerotic lesions are noted within the ribs. No acute fracture. UPPER ABDOMEN: Elevation of the left hemidiaphragm is present. IMPRESSION: 1. Bilateral pleural effusions with bibasilar atelectasis. 2. Nodular densities are noted. While findings may be secondary to the known sclerotic metastasis w ithin the ribs, underlying pulmonary nodules are not fully excluded. Electronically signed by: Rosette Chowdary MD 11/24/2024 02:30 AM [facility] Due to temporary technical issues with the PACS/OnHand reporting system, reports are being donato d by the in-house radiologist without review as a courtesy to ensure prompt reporting the interpreting radiologist is fully responsible for the content of the report. Transcribed Date/Time: 11/24/2024 5:40 AM
--- NOTE | 2024-11-24 06:04 | ER ---
Nurse's Notes [facility] Name: Tutu Harrington Age: 69 yrs Sex: Male : 1955 Arrival Date: 11/24/2024 Time: 01:00 Bed 2 Private MD: Diagnosis: UTI/ Urinary tract infection, site not specified;Altered mental status, unspecified Presentation: 11/24 01:04 Chief complaint: EMS states: we were called out for AMS and swelling of the legs. bm8 01:04 Method Of Arrival: [facility]: [facility] bm8 01:04 Coronavirus screen: Vaccine status: Patient reports being unvaccinated. Ebola Screen: bm8 Patient negative for fever greater than or equal to 101.5 degrees Fahrenheit, and additional compatible Ebola Virus Disease symptoms Patient denies exposure to infectious person. Patient denies travel to an Ebola-affected area in the 21 days before illness onset. No symptoms or risks identified at this time. Initial Sepsis Screen: Does the patient meet any 2 criteria? Temp <36.0*C (96.8*F)) or > 38.3*C (100.9*F). HR > 90 bpm. Does the patient have a suspected source of infection? No. Patient's initial sepsis screen is negative. Risk Assessment: Do you want to hurt yourself or someone else? Patient reports no desire to harm self or others. Onset of symptoms is unknown. Care prior to arrival: Medication(s) given: Tylenol, 1g IV IV initiated. 22 GA, in the right forearm, Glucose check: 105. 01:04 Acuity: JESSA 3 bm8 01:04 Acuity: JESSA 2 bm8 Triage Assessment: 01:04 General: Appears in no apparent distress. comfortable, Behavior is cooperative, bm8 appropriate for age, agitated, Smells of stale urine. 01:04 Pain: Denies pain. EENT: No deficits noted. No signs and/or symptoms were reported bm8 regarding the EENT system. Neuro: Level of Consciousness is awake, alert, obeys commands, Oriented to person, place, time, situation, Appropriate for age Wrist Liner are equal bilaterally Full function Speech is normal, Facial symmetry appears normal, Pupils are PERRLA, Pupil Size: 4 mm. Cardiovascular: Denies chest pain, Capillary refill < 3 seconds in bilateral fingers Patient's skin is warm and dry. Edema is 4+ to left lower thigh, left knee, left midcalf, left ankle, left foot, left toes, right lower thigh, right knee, right midcalf, right ankle, right foot and right toes weeping wounds on bilateral lower ext below knee Rhythm is sinus tachycardia with 1st degree heart block. Respiratory: Airway is patent Trachea midline Respiratory effort is even, unlabored, Respiratory pattern is regular, symmetrical, Breath sounds are clear bilaterally. GI: No signs and/or symptoms were reported involving the gastrointestinal system. : Urine is cloudy, blood tinged, Denies incontinence. Derm: Skin Skin is moist, Skin is red, Skin temperature is hot to bilateral lower ext below knees. Musculoskeletal: No signs and/or symptoms reported regarding the musculoskeletal system. Historical: - Allergies: 03:07 No Known Allergies; bm8 - Home Meds: 03: Unable to obtain [Active]; bm8 - PMHx: 03:07 Arthritis; COPD; BPH (Unknown); Diabetes - Refused Insulin; bm8 - PSHx: : Unable to Obtain; bm8 - Immunization history:: Adult Immunizations unknown. - Infectious Disease History:: Denies. - Family history:: not pertinent. - Social history:: Smoking status: Patient reports the use of cigarette tobacco products. - Hospitalizations: : No recent hospitalization is reported. Screenin:12 [facility] ED Fall Risk Assessment (Adult) History of falling in the last 3 months, bm8 including since admission Yes- physiologic fall (2 pts) Confusion or Disorientation No (0 pts) Intoxicated or Sedated No (0 pts) Impaired Gait Yes (1 pt) Mobility Assist Device Used Yes (1 pt) Altered Elimination Yes (1 pt) Score/Fall Risk Level 3 or more points = High Risk Oriented to surroundings, Maintained a safe environment, Educated pt \T\ family on fall prevention, incl call for assistance when getting out of bed, Assessed \T\ reinforced patient's understanding of fall precautions, Hourly rounding (assess needs \T\ fall precautionary measures) done, Used ambulatory aids as needed (educated on \T\ assisted with), Used gait belt as appropriate Implemented a Fall Risk Plan of Care, Apply high fall risk patient identification: yellow non skid footwear/ fall signage. Abuse screen: Denies threats or abuse. Nutritional screening: No deficits noted. Tuberculosis screening: No symptoms or risk factors identified. Assessment: 03:12 Reassessment: Patient appears in no apparent distress at this time. Patient and/or bm8 family updated on plan of care and expected duration. Pain level reassessed. Patient is alert, oriented x 3, equal unlabored respirations, skin warm/dry/pink. Reassessment: pt wiped down head to toe with purple body wipes. Patient denies pain at this time. Patient states feeling better. Patient states symptoms have improved. General: Appears in no apparent distress. comfortable, Behavior is calm, cooperative, appropriate for age. Pain: Denies pain. Neuro: No deficits noted. 04:38 Reassessment: Patient appears in no apparent distress at this time. Patient and/or bm8 family updated on plan of care and expected duration. Pain level reassessed. Patient is alert, oriented x 3, equal unlabored respirations, skin warm/dry/pink. pt is resting with eyes closed breathing is even unlabored with symmmetrical rise and fall of chest Patient denies pain at this time. Patient states feeling better. Patient states symptoms have improved. 04:54 Reassessment: Patient appears in no apparent distress at this time. No changes from bm8 previously documented assessment. Patient and/or family updated on plan of care and expected duration. Pain level reassessed. Patient denies pain at this time. Patient states feeling better. 06:00 Reassessment: pt is resting with eyes closed breathing is even unlabored with bm8 symmetrical rise and fall of chest. O2 NC in mouth because pt is a mouth breather. Informed provider of vitals and new orders received. 06:51 Reassessment: Patient appears in no apparent distress at this time. Patient and/or bm8 family updated on plan of care and expected duration. Pain level reassessed. Patient is alert, oriented x 3, equal unlabored respirations, skin warm/dry/pink. Patient denies pain at this time. Vital Signs: 01:04 BP 106 / 58; Pulse 115; Resp 17; Temp 102.9; Pulse Ox 99% on R/A; Weight 104.33 kg; bm8 Height 5 ft. 11 in. ; Pain 0/10; 02:20 BP 94 / 57; Pulse 108; Resp 16; Temp 99.2; Pulse Ox 93% ; Pain 0/10; bm8 04:38 BP 90 / 54; Pulse 105; Resp 18; Temp 98.9; Pulse Ox 89% on R/A; Pain 0/10; bm8 04:53 BP 92 / 37; Pulse 94; Resp 20; Temp 98.9; Pulse Ox 94% on 3 lpm NC; Pain 0/10; bm8 06:00 BP 84 / 54; Pulse 100; Resp 16; Temp 98.8; Pulse Ox 96% on 3 lpm NC; Pain 0/10; bm8 06:51 BP 92 / 56; Pulse 99; Resp 17; Temp 98.8; Pulse Ox 95% on 3 lpm NC; Pain 0/10; bm8 07:36 BP 94 / 59; Pulse 96; Pulse Ox 97% on 3 lpm NC; ld1 07:40 BP 88 / 55; Pulse 98; ld1 10:25 BP 94 / 66; Pulse 93; Resp 18; Pulse Ox 98% on 3 lpm NC; ld1 11:14 BP 105 / 64; Pulse 91; Resp 19; Pulse Ox 97% on R/A; ld1 01:04 Body Mass Index 32.08 (104.33 kg, 180.34 cm) bm8 01:04 Pain Scale: Adult bm8 02:20 Pain Scale: Adult bm8 04:38 Pain Scale: Adult bm8 04:53 Pain Scale: Adult bm8 06:00 Pain Scale: Adult bm8 06:51 Pain Scale: Adult bm8 [place] Coma Score: 02:20 Eye Response: spontaneous(4). Motor Response: obeys commands(6). Verbal Response: bm8 oriented(5). Total: 15. 03:12 Eye Response: spontaneous(4). Motor Response: obeys commands(6). Verbal Response: bm8 oriented(5). Total: 15. 04:38 Eye Response: to voice(3). Motor Response: obeys commands(6). Verbal Response: bm8 oriented(5). Total: 14. 06:00 Eye Response: to voice(3). Motor Response: obeys commands(6). Verbal Response: bm8 oriented(5). Total: 14. 06:51 Eye Response: to voice(3). Motor Response: obeys commands(6). Verbal Response: bm8 oriented(5). Total: 14. ED Course: 01:01 Patient arrived in ED. rn 01:01 Jorge Luis Boyd MD is Attending Physician. rn 01:04 Arm band placed on right wrist. EKG completed in triage. Results shown to MD. bm8 01:05 Radiology exam delayed due to lab results not completed at this time. (BUN/Creatinine) jc4 IV insertion attempt and/or patient not having appropriate IV at this time. 01:19 Chest Single View XRAY In Process Unspecified. EDMS 02:20 No provider procedures requiring assistance completed. bm8 02:20 Initial lab(s) drawn, by ky, sent to lab. First set of blood cultures drawn by me, EKG bm8 done, by ED staff, reviewed by Cameron Gama RN. Ornelas cath inserted, using sterile technique, 18 Fr., by ky, balloon inflated, to gravity drainage, urine specimen collected. returned cloudy urine. Patient tolerated well. Accessed ,peripheral vein via ultrasound, utilizing static ultrasound technique using 18G Nexia IV Catheter ,sterile technique, per hospital protocol. Clean \T\ dry. Dressing intact. Good blood return. Flushes easily. Patient maintains SpO2 saturation greater than 95% on room air. 02:41 Cameron Gama, RN is Primary Nurse. bm8 03:07 Triage completed. bm8 03:12 Patient has correct armband on for positive identification. Placed in gown. Bed in low bm8 position. Side rails up X 1. Adult w/ patient. Client placed on continuous cardiac and pulse oximetry monitoring. NIBP monitoring applied. chief clerk on. Pulse ox on. NIBP on. Door closed. Noise minimized. Warm blanket given. Pillow given. Verbal reassurance given. Head of bed elevated. 03:53 CT Chest, Abdomen, Pelvis - W/Contrast In Process Unspecified. EDMS 04:38 Maintain EMS IV. Dressing intact. Good blood return noted. Site clean \T\ dry. Gauge \T\ bm 8 site: 22g. Flushed with 10 mL NS. 04:52 Oxygen administration via nasal cannula \T\ 3L/min Response to oxygen therapy: NC placed bm8 on mouth and brought 02 sat up to 94%. Done because pt is a mouth breather. 06:02 Fawad Stanley is Hospitalizing Provider. rn 06:51 Provided Education on: need for admission. bm8 20:09 Patient admitted, IV remains in place. al5 Administered Medications: 03:02 Drug: Ibuprofen PO 800 mg PO once Route: PO; bm8 03:12 Follow up: Response: No adverse reaction bm8 03:02 Drug: morphine IVP or IV 4 mg IVP once over 4 mins Route: IVP; Infused Over: 4 mins; bm8 Site: left upper arm; 03:12 Follow up: Response: No adverse reaction bm8 04:39 Drug: Rocephin IV 1 grams IV at calculated rate once; Given slow IV push per pharmacy bm8 instructions Route: IV; Rate: calculated rate; Site: right forearm; 06:53 Follow up: Response: No adverse reaction; IV Status: Completed infusion; IV Intake: [id number] 04:39 Drug: NS 0.9% IV 500 ml 500 ml IV at 1 bolus once; to be given as a bolus over 30 bm8 minutes Volume: 500 ml; Route: IV; Rate: 1 bolus; Site: right forearm; 06:03 Follow up: Response: No adverse reaction; IV Status: Completed infusion; IV Intake: bm8 500ml 06:03 Drug: ns 0.9% 500 ml 500 ml IV at 1 bolus once; to be given as a bolus over 30 minutes bm8 Volume: 500 ml; Route: IV; Rate: 1 bolus; Site: left upper arm; 06:53 Follow up: Response: No adverse reaction; IV Status: Completed infusion; IV Intake: bm8 500ml 06:56 CANCELLED (Duplicate Order): ns 0.9% 500 ml 500 ml IV at 1 bolus once; to be given as a rn bolus over 30 minutes 07:03 Drug: NS 0.9% IV 1000 ml IV at 1000 ml once; to be given as a bolus over 60 minutes bm8 Route: IV; Rate: 1000 ml; Site: left upper arm; 07:40 CANCELLED (Duplicate Order): ns 0.9% (30 ml/kg) 30 ml/kg IV at bolus once; Sepsis rn Protocol; to be given as a bolus over 90 minutes 07:50 Drug: NS 0.9% IV (30 ml/kg) 30 ml/kg IV at bolus once; Sepsis Protocol; to be given as ld1 a bolus over 90 minutes Route: IV; Rate: bolus; Site: right antecubital; 10:10 Drug: Norepinephrine IV 0.1 mcg/kg/min IV at calculated rate See Administration ld1 Instructions; (Standard concentration 4 mg / 250 mL D5W); Recommended max rate 3 mcg/kg/min; Titrate 0.05 mcg/kg/min as often as every 5 minutes to achieve goal (see titration policy); Goal parameter MAP greater than 65 mmHg. Route: IV; Rate: calculated rate; Site: left upper arm; Medication: 03:12 VIS not applicable for this client. bm8 Intake: 06:03 IV: 500ml; Total: 500ml. bm8 06:53 IV: 500ml; Total: 1000ml. bm8 06:53 IV: 10ml; Total: 1010ml. bm8 Outcome: 06:03 Decision to Hospitalize by Provider. rn 20:09 Admitted to ICU accompanied by nurse, accompanied by tech, via stretcher, room ICU-8, al5 on monitor, with chart, 20:09 Condition: stable 20:09 Instructed on the need for admit, 20:10 Patient left the ED. al5 Signatures: Dispatcher [employer] EDMS Jorge Luis Boyd MD MD rn Sims, Lauren RN RN ld1 Cameron Gama, RN RN bm8 Enedina Avalos RN RN al5 Emmanuel Shearer [email or web address] Corrections: (The following items were deleted from the chart) 04:54 04:52 Oxygen administration via nasal cannula \T\ 2L/min Response to oxygen therapy: NC bm8 placed on mouth and brought 02 sat up to 95%. Done because pt is a mouth breather bm8
--- NOTE | 2024-11-24 06:04 | EDPHYS ---
Physician Documentation [facility] Name: Tutu Harrington Age: 69 yrs Sex: Male : 1955 Arrival Date: 11/24/2024 Time: 01:00 Bed 2 Private MD: ED Physician Jorge Luis Boyd HPI: 11/24 02:10 This 69 yrs old Male presents to ER via Unassigned with complaints of fever. rn 02:10 Per EMS report, patient with fever, unknown duration, family saying he is acting not rn like himself. Temp 102. Patient denies focal pain. Patient reports discoloration of his legs but not an acute change. Denies abdominal pain or vomiting. Denies chest pain. Mild cough.. Historical: - Allergies: 03:07 No Known Allergies; bm8 - Home Meds: 03:07 Unable to obtain [Active]; bm8 - PMHx: 03:07 Arthritis; COPD; BPH (Unknown); Diabetes - Refused Insulin; bm8 - PSHx: 03:07 Unable to Obtain; bm8 - Immunization history:: Adult Immunizations unknown. - Infectious Disease History:: Denies. - Family history:: not pertinent. - Social history:: Smoking status: Patient reports the use of cigarette tobacco products. - Hospitalizations: : No recent hospitalization is reported. 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 Head/Face: Normocephalic, atraumatic. ENT: Dry mucous membranes, no stridor Cardiovascular: Regular rate and rhythm. No pulse deficits. Respiratory: No increased work of breathing, no retractions or nasal flaring. Abdomen/GI: Soft, non-tender MS/ Extremity: Bilateral lower extremity swelling, pitting edema, with chronic lymphedema changes of skin. Neuro: Awake and alert, GCS 15 02:37 ECG was reviewed by the Attending Physician. rn Vital Signs: 01:04 BP 106 / 58; Pulse 115; Resp 17; Temp 102.9; Pulse Ox 99% on R/A; Weight 104.33 kg; bm8 Height 5 ft. 11 in. ; Pain 0/10; 02:20 BP 94 / 57; Pulse 108; Resp 16; Temp 99.2; Pulse Ox 93% ; Pain 0/10; bm8 04:38 BP 90 / 54; Pulse 105; Resp 18; Temp 98.9; Pulse Ox 89% on R/A; Pain 0/10; bm8 04:53 BP 92 / 37; Pulse 94; Resp 20; Temp 98.9; Pulse Ox 94% on 3 lpm NC; Pain 0/10; bm8 06:00 BP 84 / 54; Pulse 100; Resp 16; Temp 98.8; Pulse Ox 96% on 3 lpm NC; Pain 0/10; bm8 06:51 BP 92 / 56; Pulse 99; Resp 17; Temp 98.8; Pulse Ox 95% on 3 lpm NC; Pain 0/10; bm8 07:36 BP 94 / 59; Pulse 96; Pulse Ox 97% on 3 lpm NC; ld1 07:40 BP 88 / 55; Pulse 98; ld1 10:25 BP 94 / 66; Pulse 93; Resp 18; Pulse Ox 98% on 3 lpm NC; ld1 11:14 BP 105 / 64; Pulse 91; Resp 19; Pulse Ox 97% on R/A; ld1 01:04 Body Mass Index 32.08 (104.33 kg, 180.34 cm) bm8 01:04 Pain Scale: Adult bm8 02:20 Pain Scale: Adult bm8 04:38 Pain Scale: Adult bm8 04:53 Pain Scale: Adult bm8 06:00 Pain Scale: Adult bm8 06:51 Pain Scale: Adult bm8 John Coma Score: 02:20 Eye Response: spontaneous(4). Motor Response: obeys commands(6). Verbal Response: bm8 oriented(5). Total: 15. 03:12 Eye Response: spontaneous(4). Motor Response: obeys commands(6). Verbal Response: bm8 oriented(5). Total: 15. 04:38 Eye Response: to voice(3). Motor Response: obeys commands(6). Verbal Response: bm8 oriented(5). Total: 14. 06:00 Eye Response: to voice(3). Motor Response: obeys commands(6). Verbal Response: bm8 oriented(5). Total: 14. 06:51 Eye Response: to voice(3). Motor Response: obeys commands(6). Verbal Response: bm8 oriented(5). Total: 14. MDM: 01:01 Medical Screening Exam initiated rn 06:00 Differential Diagnosis Fever, viral illness, UTI, pyelonephritis, enteritis. Data rn reviewed: vital signs, nurses notes, lab test result(s), radiologic studies, plain films, and as a result, I will admit patient. Consideration of Admission/Observation Patient was admitted/placed on observation. Escalation of care including admission/observation considered. Counseling: I had a detailed discussion with the patient and/or guardian regarding the historical points, exam findings, and any diagnostic results supporting the discharge/admit diagnosis, lab results, radiology results, the need for further work-up and treatment in the hospital. Response to treatment: the patient's symptoms have mildly improved after treatment, and as a result, I will admit patient. 06:01 ED course: Patient with elevated WBC and UTI, normal lactic acid, no evidence of rn endorgan damage at this time. Blood pressure in the 90s, giving 500 bolus at a time, now on his second one, taking it easy given bilateral pleural effusions on imaging already. Sepsis reevaluation complete. 06:57 ED course: Will order another 1 L NS bolus for hypotension. Sepsis reevaluation rn complete. 07:38 ED course: Patient states no difficulty breathing, no oxygen requirement, likely could rn take more fluid. Will complete the full 30 mL/kg bolus and reassess. Sepsis reevaluation complete. 07:43 ED course: Patient currently with MAP of 66, still has little more than a liter to rn complete and has ongoing 30 mL/kg bolus, admitted to hospitalist service and they will reassess patient's response and ensure that he does not need pressor.. 11/24 01:01 Order name: Blood Culture Adult (2) rn 11/24 01:01 Order name: CBC with Diff; Complete Time: 04:38 rn 11/24 01:01 Order name: CMP; Complete Time: 03:31 rn 11/24 01:01 Order name: Lactate w/ 2H reflex if indic.; Complete Time: 03:31 rn 11/24 01:01 Order name: Protime (+inr); Complete Time: 03:31 rn 0206 01:01 Order name: Ptt, Activated; Complete Time: 03:31 rn 0206 01:01 Order name: Urinalysis w/ reflexes; Complete Time: 03:31 rn 11/24 01:03 Order name: AMMONIA; Complete Time: 03:31 rn 11/24 01:03 Order name: Troponin High Sensitivity; Complete Time: 03:31 rn 02 01:03 Order name: BNP; Complete Time: 03:31 rn 11/24 01:03 Order name: Flu; Complete Time: 04:08 rn 11/24 01:03 Order name: SARS-COV-2 Antigen Rapid; Complete Time: 04:08 rn 11/24 02:58 Order name: Manual Differential; Complete Time: 04:38 EDMS 02/ 03:18 Order name: Urine Culture EDMS / 08:38 Order name: Basic Metabolic Panel EDMS / 08:38 Order name: Basic Metabolic Panel EDMS 02/ 08:38 Order name: Basic Metabolic Panel EDMS 02/ 08:38 Order name: Basic Metabolic Panel EDMS 02/ 08:38 Order name: Basic Metabolic Panel EDMS 02/ 08:38 Order name: Basic Metabolic Panel EDMS 02/ 08:38 Order name: Basic Metabolic Panel EDMS 02/ 08:38 Order name: Basic Metabolic Panel EDMS 02/ 08:38 Order name: CBC with Automated Diff EDMS 02/ 08:38 Order name: CBC with Automated Diff EDMS 02/ 08:38 Order name: CBC with Automated Diff EDMS 02/ 08:38 Order name: CBC with Automated Diff EDMS 02/ 08:38 Order name: CBC with Automated Diff EDMS 02/ 08:38 Order name: CBC with Automated Diff EDMS / 08:38 Order name: CBC with Automated Diff EDMS 02/ 08:38 Order name: CBC with Automated Diff EDMS 02/ 08:38 Order name: Magnesium EDMS 02/ 08:38 Order name: Magnesium EDMS 02/ 08:38 Order name: Magnesium EDMS 02 08:38 Order name: Magnesium EDMS 02/ 08:38 Order name: Magnesium EDMS 02/ 08:38 Order name: Magnesium EDMS 02/ 08:38 Order name: Magnesium EDMS 02/ 08:38 Order name: Magnesium EDMS 02/ 08:38 Order name: Phosphorus EDMS 02/ 08:38 Order name: Phosphorus EDMS 02/ 08:38 Order name: Phosphorus EDMS 02 08:38 Order name: Phosphorus EDMS 02/ 08:38 Order name: Phosphorus EDMS 02 08:38 Order name: Phosphorus EDMS 02/ 08:38 Order name: Phosphorus EDMS 02 08:38 Order name: Phosphorus EDMS 02/ 01:01 Order name: Chest Single View XRAY; Complete Time: 06:01 rn 02/06 01:03 Order name: CT Chest, Abdomen, Pelvis - W/Contrast rn 02/ 01:01 Order name: Cardiac monitoring; Complete Time: 03:02 rn 11/24 01:01 Order name: EKG - Nurse/Tech; Complete Time: 03:02 rn / 01:01 Order name: IV Saline Lock - Large Bore; Complete Time: 03:02 rn / 01:01 Order name: Labs collected and sent; Complete Time: 03:02 rn 11/24 01:01 Order name: O2 Per Protocol; Complete Time: 03:02 rn / 01:01 Order name: O2 Sat Monitoring; Complete Time: 03:02 rn 02/ 01:01 Order name: Vital Signs; Complete Time: 03:02 rn EC:37 Rate is 118 beats/min. Rhythm is regular. QRS [place] is Normal. AL interval is normal. rn QRS interval is normal. QT interval is normal. No Q waves. T waves are Normal. No ST changes noted. Clinical impression: Sinus tachycardia. Interpreted by me. Reviewed by me. Administered Medications: 03:02 Drug: Ibuprofen PO 800 mg PO once Route: PO; bm8 03:12 Follow up: Response: No adverse reaction bm8 03:02 Drug: morphine IVP or IV 4 mg IVP once over 4 mins Route: IVP; Infused Over: 4 mins; bm8 Site: left upper arm; 03:12 Follow up: Response: No adverse reaction bm8 04:39 Drug: Rocephin IV 1 grams IV at calculated rate once; Given slow IV push per pharmacy bm8 instructions Route: IV; Rate: calculated rate; Site: right forearm; 06:53 Follow up: Response: No adverse reaction; IV Status: Completed infusion; IV Intake: [id number] 04:39 Drug: NS 0.9% IV 500 ml 500 ml IV at 1 bolus once; to be given as a bolus over 30 bm8 minutes Volume: 500 ml; Route: IV; Rate: 1 bolus; Site: right forearm; 06:03 Follow up: Response: No adverse reaction; IV Status: Completed infusion; IV Intake: bm8 500ml 06:03 Drug: ns 0.9% 500 ml 500 ml IV at 1 bolus once; to be given as a bolus over 30 minutes bm8 Volume: 500 ml; Route: IV; Rate: 1 bolus; Site: left upper arm; 06:53 Follow up: Response: No adverse reaction; IV Status: Completed infusion; IV Intake: bm8 500ml 06:56 CANCELLED (Duplicate Order): ns 0.9% 500 ml 500 ml IV at 1 bolus once; to be given as a rn bolus over 30 minutes 07:03 Drug: NS 0.9% IV 1000 ml IV at 1000 ml once; to be given as a bolus over 60 minutes bm8 Route: IV; Rate: 1000 ml; Site: left upper arm; 07:40 CANCELLED (Duplicate Order): ns 0.9% (30 ml/kg) 30 ml/kg IV at bolus once; Sepsis rn Protocol; to be given as a bolus over 90 minutes 07:50 Drug: NS 0.9% IV (30 ml/kg) 30 ml/kg IV at bolus once; Sepsis Protocol; to be given as ld1 a bolus over 90 minutes Route: IV; Rate: bolus; Site: right antecubital; 10:10 Drug: Norepinephrine IV 0.1 mcg/kg/min IV at calculated rate See Administration ld1 Instructions; (Standard concentration 4 mg / 250 mL D5W); Recommended max rate 3 mcg/kg/min; Titrate 0.05 mcg/kg/min as often as every 5 minutes to achieve goal (see titration policy); Goal parameter MAP greater than 65 mmHg. 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 Total time: 35 rn minutes Signatures: Dispatcher [employer] EDMS Jorge Luis Boyd MD MD rn Sims, Marcus, DO DO ms3 Elizabeth Bright, RN RN ld1 Arlet Son, RN RN kb3 Glenna David [facility] Cameron Gama, RN RN bm8 Corrections: (The following items were deleted from the chart) 01:02 01:02 BLOOD CULTURE*+BA.LAB.BRZ ordered. EDOR EDMS 01:02 01:02 CBC+H.LAB.BRZ ordered. EDOR EDMS 01:02 01:02 COMPREHENSIVE METABOLIC PANEL+C.LAB.BRZ ordered. EDOR EDMS 01:02 01:02 LACTATE+C.LAB.BRZ ordered. EDOR EDMS 01:02 01:02 PROTIME (+INR)+COAG.LAB.BRZ ordered. EDOR EDMS 01:02 01:02 PTT, ACTIVATED+COAG.LAB.BRZ ordered. EDOR EDMS 01:02 01:02 Urinalysis+U.LAB.BRZ ordered. EDOR EDMS 01:02 01:02 Chest Single View+RAD.RAD.BRZ ordered. EDOR EDMS 01:03 01:03 Troponin High Sensitivity+C.LAB.BRZ ordered. EDOR EDMS 01:03 01:03 PROBNP+C.LAB.BRZ ordered. EDOR EDMS 02:11 02:02 Patient reports a few days of generalized swelling, fatigue and dyspnea. Patient rn reports had lung cancer and is currently in remission. States her oncologist was giving her medicine for her swelling that she has had on and off, still takes medication, but now swelling up again. Urinating normally. No history of DVT or PE. No fever or chills. rn : 02:02 Onset: The symptoms/episode began/occurred 2 day(s) ago, rn rn : 02:02 Severity of symptoms: At their worst the symptoms were mild in the emergency rn department the symptoms are unchanged rn : 02:02 The patient has experienced similar episodes in the past, rn rn : 02:02 The patient has not recently seen a physician, rn rn : 02:02 This 69 yrs old Male presents to ER via Unassigned with complaints of Leg rn Swelling, sob. rn : 02:02 Constitutional: Negative for fever, chills, and weight loss, Neck: Negative for rn injury, pain, and swelling, Cardiovascular: Negative for chest pain, palpitations, and edema, Respiratory: Positive for shortness of breath Abdomen/GI: Negative for abdominal pain, nausea, vomiting, diarrhea, and constipation, MS/Extremity: Positive for leg swelling Skin: Negative for injury, rash, and discoloration, Neuro: Negative for headache, weakness, numbness, tingling, and seizure, rn 02: 02:02 Constitutional: This is a well developed, well nourished patient who is awake, rn alert, and in no acute distress. Cardiovascular: Regular rate and rhythm with a normal S1 and S2. No gallops, murmurs, or rubs. Normal PMI, no JVD. No pulse deficits. Respiratory: Mild tachypnea Abdomen/GI: Soft, non-tender, with normal bowel sounds. No distension or tympany. No guarding or rebound. No evidence of tenderness throughout. MS/ Extremity: Nonpitting edema of the lower extremities and left upper extremity. No color changes Neuro: Awake and alert, GCS 15 rn 03:02 01:01 Accucheck ordered. rn bm8 06:02 06:01 ED course: Patient with elevated WBC and UTI, normal lactic acid, no evidence of rn endorgan damage at this time. Blood pressure in the 90s, giving 500 bolus at a time, now on his second one, taking it easy given bilateral pleural effusions on imaging already.. rn 06:56 06:56 NS 0.9% IV 500 ml 500 ml IV at 1 bolus once; to be given as a bolus over 30 rn minutes ordered. rn 07:40 07:39 NS 0.9% IV (30 ml/kg) 30 ml/kg IV at bolus once; Sepsis Protocol; to be given as rn a bolus over 90 minutes ordered. rn 08: 06:03 Telemetry/MedSurg (Inpatient) rn kb3 08:41 06:03 rn kb3 18:52 08:41 [facility] ER HOLD kb3 bc6 18:52 08:41 ERHOLD- kb3 bc6
--- NOTE | 2024-11-24 06:52 | RAD REPORT ---
EXAM: CT Chest, Abdomen and Pelvis With Intravenous Contrast CLINICAL HISTORY: The patient is 69 years old and is Male; FEVER TECHNIQUE: Axial computed tomography images of the chest, abdomen and pelvis with intravenous contr ast. Sagittal and coronal reformatted images were created and reviewed. This CT exam was performed using one or more of the following dose reduction techniques: automated exposure control, adjustment of the mA and/or kV according to patient size, and/or use of iterative reconstruction technique. COMPARISON: CT chest, CT abdomen and pelvis September 29, 2024 FINDINGS: CHEST: Lungs: Unremarkable. No mass. No consolidation. Pleural space: Small right pleural effusion. No pneumothorax. Heart: Unremarkable. No cardiomegaly. No significant pericardial effusion. No significant c oronary artery calcifications. ABDOMEN: Liver: Cirrhosis. Gallbladder and bile ducts: Unremarkable. No calcified stones. No ductal dilation. Pancreas: Unremarkable. No ductal dilation. No mass. Spleen: Splenomegaly. Adrenals: Unremarkable. No mass. Kidneys and ureters: Unremarkable. No hydronephrosis. No solid mass. Stomach and bowel: Stool throughout the colon. No obstruction. No mucosal thickening. PELVIS: Appendix: No findings to suggest acute appendicitis. Bladder: There may be some diffuse bladder wall thickening, but the bladder is decompressed limit ing evaluation. Ornelas catheter in the bladder. Reproductive: Unremarkable as visualized. CHEST, ABDOMEN and PELVIS: Intraperitoneal space: Small moderate ascites. No free air. Bones/joints: 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 . Bilateral hip arthroplasty. Disc space narrowing with degenerative endplate changes in the spine. No acute fracture. No dislocation. Soft tissues: Bilateral inguinal hernias. 6 cm fluid collection within the right inguinal hernia, similar to prior. Vasculature: Paraesophageal and upper abdominal varices. Scattered atherosclerotic vascular calcifications. No aortic aneurysm. Lymph nodes: Extensive bulky retroperitoneal lymphadenopathy. Bilateral ilioinguinal lymphadenopa thy. IMPRESSION: 1. Small right pleural effusion. 2. Cirrhosis. 3. Splenomegaly. 4. Small moderate ascites. 5. Paraesophageal and upper abdominal varices. 6. There may be some diffuse bladder wall thickening, but the bladder is decompressed limiting eval uation. Correlate with any concern for cystitis. 7. Stool throughout the colon. 8. Extensive bulky retroperitoneal lymphadenopathy. Bilateral ilioinguinal lymphadenopathy. 9. Bilateral inguinal hernias. 6 cm fluid collection within the right inguinal hernia, similar to p rior. 10. 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. Electronically signed by: Earnest Phillips MD 11/24/2024 06:36 AM [facility] 8 Due to temporary technical issues with the PACS/[employer] reporting system, reports are being donato d by the in-house radiologist without review as a courtesy to ensure prompt reporting the interpreting radiologist is fully responsible for the content of the report. Transcribed Date/Time: 11/24/2024 6:52 AM
[2024-11-24] MEDS ORDERED: NA CHLORIDE 0.9% 1,000 ML ONE ×2 (07:00→07:42)
--- NOTE | 2024-11-24 07:51 | P.HP ---
Certification for Inpatient Patient admitted to: Inpatient With expected LOS: >2 Midnights Patient will require the following post-hospital care: None Practitioner: I am a practitioner with admitting privileges, knowledge of patient current condition, hospital course, and medical plan of care. Services: Services provided to patient in accordance with Admission requirements found in Title 42 Section 412.3 of the Code of Federal Regulations Patient History Date of Service: 11/24/24 Reason for admission: Severe sepsis 2/2 UTI History of Present Illness: Tutu Harrington is a 69 year old male with PMhx COPD, arthritis, BPH, Diabetes Mellitus who presents to the ED with fever and general "not feeling well". Tutu was lethargic, coughing, rhonchi to bilateral lung sounds, on 4LNC. Laboratory evaluation significant for WBC 15.5, H&H 11/33, BNP 1347, alk phos 200 4052, T. bili 1.1, UA suggestive of infectious process. Initial vitals BP 106 / 58; Pulse 115; Resp 17; Temp 102.9; Pulse Ox 99% on R/A CT chest abdomen pelvis report " small right pleural effusion, cirrhosis, splenomegaly, small-moderate ascites, paraesophageal and upper abdominal va rices, bladder decompressed limiting evaluation, stool throughout colon, extensive bulky retroperitoneal lymphadenopathy, bilateral ilioinguinal lymphadenopathy, bilateral inguinal hernias, 6 cm fluid collection within the right inguinal hernia, similar to prior. 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 Allergies No Known Allergies Allergy (Unverified 04/07/24 17:31) Home Medications: Cefdinir [Cefdinir*] 300 mg PO BID #20 cap 04/09/24 Tamsulosin [Flomax*] 0.4 mg PO BEDTIME #30 cap 04/09/24 - Past Medical/Surgical History -: DM -: COPD -: Arthritis -: BPH -: Denies Psychosocial/ Personal History: Lives with his Son. Heavy smoker. Past EtOH. Incontinent of urine. - Social History Smoking Status: Current every day smoker Alcohol use: Yes CD- Drugs: No Caffeine use: Yes Review of Systems Other: Per HPI Physical Examination - Physical Exam General: In no apparent distress, Oriented x3, Other (Lethargic) HEENT: Atraumatic, Normocephalic, PERRLA Neck: Supple, JVD not distended Respiratory: Clear to auscultation bilaterally Cardiovascular: Normal pulses, Regular rate/rhythm, Normal S1 S2, Edema (Left lower extremity) Capillary refill: <2 Seconds Gastrointestinal: Normal bowel sounds, Soft and benign Musculoskeletal: No clubbing, Swelling (Left lower extremity) Integumentary: No rashes Neurological: Normal speech, Normal tone - Studies Laboratory Data (last 24 hrs) 11/24/24 11/24/24 11/24/24 02:20 02:20 02:20 WBC 15.50 H Hgb 11.8 L Hct 33.0 L Plt Count 167 PT 15.5 H INR 1.48 APTT 32.2 Sodium 136 Potassium 3.7 BUN 26 H Creatinine 0.98 Glucose 93 Total Bilirubin 1.1 H AST 27 ALT 17 Alkaline Phosphatase 252 H Microbiology Data (last 24 hrs): 11/24/24 02:00 Blood - Blood Anaerobic Blood Culture - Final 11/24/24 02:20 Blood - Blood Anaerobic Blood Culture - Final 11/24/24 02:50 Nasopharnyx Influenza Type A Antigen Screen - Final 11/24/24 02:50 Nasopharnyx Influenza Type B Antigen Screen - Final Assessment and Plan - Plan Assessment and plan Sepsis secondary to urinary tract infection BPH Febrile -Sepsis criteria heart rate 115, temp 102.9, blood pressure 84/54, WBC 15.5, UTI -Gentle IV fluids due to patient being overloaded -Soft blood pressure, Levophed started -Tylenol -Rocephin daily -Follow blood and urine culture Right pleural effusion Cirrhosis Splenomegaly Small to moderate ascites Paraesophageal and upper abdominal varices Bulky retroperitoneal lymphadenopathy Bilateral ilioinguinal lymphadenopathy Bilateral inguinal hernias, 6 cm fluid collection within the right inguinal hernia 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 -Findings on CT CAP -BNP 1347 -Blood pressure is soft, will hold on Lasix -Follow-up outpatient Arthritis COPD Diabetes -Restart home medication -Serum glucose 93 - on 3 LNC DVT PPx Lovenox Full code LOS 2-3 days Discharge Plan: Home Plan to discharge in: 72 Hours - Advance Directives Does patient have a Living Will: No Does patient have a Durable POA for Healthcare: No
[2024-11-24] MEDS ORDERED: ACETAMINOPHEN 325 MG TABLET PO PRN (08:29)
[2024-11-24] MEDS: ENOXAPARIN 40 MG/0.4 ML SQ SCH (09:00)
[2024-11-24] MEDS ORDERED: NOREPINEPHRINE BITARTRATE/D5W 4 MG/250 ML BAG IV ONE ×2 (10:04→17:38)
--- NOTE | 2024-11-24 11:25 | EKG ---
Test Date: 2024-11-24 Test Time: 01:07:58 Photographer Still: CURT MEASUREMENT RESULTS: Intervals: Rate: 118 RI: 150 QRSD: 140 QT: 354 QTc: 496 [place]: P: RI: 150 QRS: 82 T: 45 INTERPRETIVE STATEMENTS: Sinus tachycardia Right bundle branch block Abnormal ECG Compared to ECG 04/07/2024 14:08:37 Sinus rhythm no longer present Electronically Signed On 11-24-24 11:24:14 FUEL DOCK ATTENDANT by Aries Singh
[2024-11-24] MEDS: NOREPINEPHRINE BITARTRATE/D5W 4 MG/250 ML BAG IV SCH (17:42)
[2024-11-24] MEDS: VANCOMYCIN 2.5 GM in NA CHLORIDE 0.9% 500 ML IVPB ONE (20:00)
[2024-11-24] MEDS ORDERED: VANCOMYCIN 1 GM in NA CHLORIDE 0.9% 250 ML IVPB SCH (20:00)
[2024-11-24] MEDS: VANCOMYCIN 1 GM/VIAL ONE (22:00)
[2024-11-24] MEDS: NA CHLORIDE 0.9% 500 ML ONE (22:00)
[2024-11-24] MEDS: VANCOMYCIN 500 MG/VIAL ONE (22:00)
[2024-11-24 23:09] VITALS: BMI 33.8
[2024-11-25 06:17] LABS: Absolute Eosinophils 0.1 K/uL (0-0.5); Absolute Lymphocytes (CBC) 1.1 K/uL (0.7-4.9); Absolute Monocytes 0.6 K/uL (0.1-1.3); Absolute Neutrophil 4.7 K/uL (1.8-8.0); Anion Gap 7.4 mEq/L (5.0-15.0); Basophils % 0.5 % (0-1.3); Eosinophils % 1.1 % (0-4.4); Hematocrit 31.5 % (39.6-49.0); Hemoglobin 11.1 g/dL (13.6-17.9); Lymphocytes % 17.4 % (15.3-44.8); MCH 31.8 pg (27.0-35.0); MCHC 35.2 g/dL (32.0-36.0); MCV 90.6 fL (80-100); Monocytes % 8.5 % (3.3-12.3); Neutrophils % 72.5 % (41.7-73.7); Nucleated Red Blood Cells % 0.6 % (0-0); Phosphorus 1.9 mg/dL (2.5-4.9); Platelets 131 thou/uL (152-406); RBC Red Blood Cell Count 3.47 M/uL (4.33-5.43); Red Cell Distribution Width 16.3 % (12.1-15.2)
[2024-11-25 06:18] LABS: Magnesium 2.1 mg/dL (1.6-2.4); Potassium 4.4 mEq/L (3.5-5.1)
--- NOTE | 2024-11-25 06:53 | P.PN ---
Date of Service: 11/25/24 Subjective Awake and feeling well this morning no new complaints Move to the floor ROS 10 point ROS as noted above, otherwise negative Physical Exam General: alert and Oriented x3, NAD HEENT: Atraumatic, Normocephalic, PERRLA Neck: Supple, JVD not distended Respiratory: Clear to auscultation bilaterally, cough, on 2 LNC Cardiovascular: Normal pulses, mild tachycardia, Normal S1 S2, Edema (Right lower extremity) Capillary refill: <2 Seconds Gastrointestinal: Normal bowel sounds, Soft and benign on palpation Musculoskeletal: No clubbing, Swelling (Right lower extremity) Integumentary: No rashes Neurological: Normal speech, Normal tone Vitals Reviewed Problem list Septic shock secondary to urinary tract infection BPH Febrile Right pleural effusion Cirrhosis Splenomegaly Small to moderate ascites Paraesophageal and upper abdominal varices Bulky retroperitoneal lymphadenopathy Bilateral ilioinguinal lymphadenopathy Bilateral inguinal hernias, 6 cm fluid collection within the right inguinal hernia 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 Arthritis COPD Diabetes Assessment and Plan Septic shock secondary to urinary tract infection BPH Febrile -Sepsis criteria heart rate 115, temp 102.9, blood pressure 84/54, WBC 15.5, UTI -Gentle IV fluids due to patient being overloaded -Soft blood pressure, Levophed stopped -Tylenol -Rocephin daily -Follow blood and urine culture Right pleural effusion Cirrhosis Splenomegaly Small to moderate ascites Paraesophageal and upper abdominal varices Bulky retroperitoneal lymphadenopathy Bilateral ilioinguinal lymphadenopathy Bilateral inguinal hernias, 6 cm fluid collection within the right inguinal hernia 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
[2024-11-25] MEDS ORDERED: BENZONATATE 100 MG CAP PO PRN (07:57)
[2024-11-25] MEDS: GUAIFENESIN 600 MG SA TAB PO SCH (08:29)
[2024-11-25] MEDS: CEFTRIAXONE 1,000 MG in NA CHLORIDE 0.9% 50 ML IVPB SCH (08:29)
[2024-11-25] MEDS: POTASS/SODIUM PHOSPHATE 1 PKT POWD.PACK PO SCH (08:30)
[2024-11-25] MEDS: VANCOMYCIN 1.75 GM in NA CHLORIDE 0.9% 500 ML IVPB SCH (16:29)
[2024-11-26 03:10] VITALS: O2SAT 95
--- NOTE | 2024-11-26 06:33 | P.PN ---
Date of Service: 11/26/24 Subjective ROS 10 point ROS as noted above, otherwise negative Physical Exam General: alert and Oriented x3, NAD HEENT: Atraumatic, Normocephalic, PERRLA Neck: Supple, JVD not distended Respiratory: Clear to auscultation bilaterally, cough, on 2 LNC Cardiovascular: Normal pulses, mild tachycardia, Normal S1 S2, Edema (Right lower extremity) Capillary refill: <2 Seconds Gastrointestinal: Normal bowel sounds, Soft and benign on palpation Musculoskeletal: No clubbing, Swelling (Right lower extremity) Integumentary: No rashes Neurological: Normal speech, Normal tone Vitals Reviewed Problem list Septic shock secondary to urinary tract infection BPH Febrile Right pleural effusion Cirrhosis Splenomegaly Small to moderate ascites Paraesophageal and upper abdominal varices Bulky retroperitoneal lymphadenopathy Bilateral ilioinguinal lymphadenopathy Bilateral inguinal hernias, 6 cm fluid collection within the right inguinal hernia 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 Arthritis COPD Diabetes Assessment and Plan Septic shock secondary to urinary tract infection BPH Febrile -Sepsis criteria heart rate 115, temp 102.9, blood pressure 84/54, WBC 15.5, UTI -Gentle IV fluids due to patient being overloaded -Soft blood pressure, Levophed stopped -Tylenol -Rocephin daily -Follow blood and urine culture Right pleural effusion Cirrhosis Splenomegaly Small to moderate ascites Paraesophageal and upper abdominal varices Bulky retroperitoneal lymphadenopathy Bilateral ilioinguinal lymphadenopathy Bilateral inguinal hernias, 6 cm fluid collection within the right inguinal hernia 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
--- NOTE | 2024-11-26 15:34 | P.DS ---
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 W vika was lethargic, coughing, rhonchi to bilateral lung sounds, on 4LNC. Laboratory evaluation significant for WBC 15.5, H&H 11/33, BNP 1347, alk phos 200 4052, T. bili 1.1, UA suggestive of infectious process. Initial vitals BP 106 / 58; Pulse 115; Resp 17; Temp 102.9; Pulse Ox 99% on R/A CT chest abdomen pelvis report " small right pleural effusion, cirrhosis, splenomegaly, small-moderate ascites, paraesophageal and upper abdominal varices, bladder decompressed limiting evaluation, stool throughout colon, extensive bulky retroperitoneal lymphadenopathy, bilateral ilioinguinal lymphadenopathy, bilateral inguinal hernias, 6 cm fluid collection within the right inguinal hernia, similar to prior. 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 Tutu will need to follow up with his PCP after discharge. Prescriptions of levaquin and tessalon perles call into the pharmacy. Physical Exam General: AAO x3, NAD Neck: Supple, JVD not distended Respiratory: Clear to auscultation bilaterally, cough, on RA Cardiovascular: mild tachycardia, Normal S1 S2, Edema (Right lower extremity) Capillary refill: <2 Seconds Gastrointestinal: active bowel sounds, Soft on palpation Musculoskeletal: No clubbing, Swelling (Right lower extremity) Integumentary: No rashes Neurological: Normal speech, Normal tone Vital Signs/Physical Exam: Temp Pulse Resp BP Pulse Ox 98.1 F 97 H 16 109/69 94 11/26/24 12:00 11/26/24 12:00 11/26/24 12:00 11/26/24 12:00 11/26/24 12:00 Laboratory Data at Discharge: WBC 6.50 thou/uL (4.3-10.9) 11/25/24 05:38 Hgb 11.1 g/dL (13.6-17.9) L 11/25/24 05:38 Hct 31.5 % (39.6-49.0) L 11/25/24 05:38 Plt Count 131 thou/uL (152-406) L 11/25/24 05:38 PT 15.5 SECONDS (9.4-12.5) H 11/24/24 02:20 INR 1.48 11/24/24 02:20 APTT 32.2 SECONDS (24.3-36.9) 11/24/24 02:20 Sodium 137 mEq/L (136-145) 11/25/24 05:38 Potassium 4.4 mEq/L (3.5-5.1) D 11/25/24 05:38 BUN 22 mg/dL (7-18) H 11/25/24 05:38 Creatinine 0.80 mg/dL (0.70-1.30) 11/25/24 05:38 Glucose 111 mg/dL (74-106) H 11/25/24 05:38 Phosphorus 1.9 mg/dL (2.5-4.9) L 11/25/24 05:38 Magnesium 2.1 mg/dL (1.6-2.4) 11/25/24 05:38 Total Bilirubin 1.1 mg/dL (0.2-1.0) H 11/24/24 02:20 AST 27 U/L (15-37) 11/24/24 02:20 ALT 17 U/L (16-61) 11/24/24 02:20 Alkaline Phosphatase 252 U/L (45-117) H 11/24/24 02:20 Home Medications: Cefdinir [Cefdinir*] 300 mg PO BID #20 cap 04/09/24 Tamsulosin [Flomax*] 0.4 mg PO BEDTIME #30 cap 04/09/24 Benzonatate [Tessalon Perle*] 200 mg PO TID PRN 10 Days #30 cap 11/26/24 levoFLOXacin [Levofloxacin] 750 mg PO BID 7 Days #14 tab 11/26/24 New Medications: levoFLOXacin [Levofloxacin] 750 mg PO BID 7 Days #14 tab Benzonatate [Tessalon Perle*] 200 mg PO TID PRN 10 Days #30 cap PRN Reason: Cough Physician Discharge Instructions: 1. Please call and schedule a follow-up appointment with your PCP in 3-5 days - Please follow-up with your PCP for medication refills/adjustments 2. Please call and schedule a follow-up appointment with Dr. Moe in 3-5 days 3. Continue heart healthy diet 4. activity restrictions cautions 5. Return to the ED if symptoms worsen New medications Levofloxacin 750 mg twice daily x 7 days Tessalon Perles 100 mg 3 times a day x 10 days Diet: AHA Activity: Fall precautions Followup: NONE,NONE [Primary Care Provider] - Seven Moe [ACTIVE - CAN ADMIT] -
[2024-11-26 16:29] VITALS: BP 101/59; TEMP 98.5
== END 2024-11-26 17:32 | disposition home or self-care (01) | DRG 871 ==
LOC: ER 01:00 → ERHOLD 08:29 → 3RD-ICU 19:41 → 4TH 11-25 11:50
PROVIDERS: ADMIT Internal Medicine; ATTEND Internal Medicine
PROC: 0T9B70Z Drainage of Bladder with Drainage Device, Via Natural or Artificial Opening (ICD-10-PCS; principal; 2024-11-26)
DX: A41.9 Sepsis, unspecified organism (principal); R65.21 Severe sepsis with septic shock; N39.0 Urinary tract infection, site not specified; R18.8 Other ascites; J91.8 Pleural effusion in other conditions classified elsewhere; E11.9 Type 2 diabetes mellitus without complications; J44.9 Chronic obstructive pulmonary disease, unspecified; N40.0 Benign prostatic hyperplasia without lower urinary tract symptoms; M19.90 Unspecified osteoarthritis, unspecified site; K74.60 Unspecified cirrhosis of liver; I86.4 Gastric varices; R59.1 Generalized enlarged lymph nodes; K40.90 Unilateral inguinal hernia, without obstruction or gangrene, not specified as recurrent; B96.1 Klebsiella pneumoniae [K. pneumoniae] as the cause of diseases classified elsewhere; B95.2 Enterococcus as the cause of diseases classified elsewhere; R16.1 Splenomegaly, not elsewhere classified; F17.210 Nicotine dependence, cigarettes, uncomplicated
CPT/HCPCS: 36415; 51702; 71045; 71260; 74177; 80048; 80053; 81001; 82140; 83605; 83735; 83880; 84100; 84484; 85025; 85610; 85730; 87040; 87077; 87086; 87088; 87186; 87804; 87811; 93005; 99285; J0696; J1650; J2270; J2405; J7030; J7040; Q9967

== ENCOUNTER 2024-12-31 19:55 | Emergency (ER) | payer OTHER ==
--- NOTE | 2024-12-31 21:51 | RAD REPORT ---
EXAMINATION: ONE VIEW CHEST XR CLINICAL INDICATION: weakness TECHNIQUE: Frontal chest projection is submitted. Examination is limited by patient positioning and t echnique. COMPARISON: 11/24/2024 FINDINGS: Emphysematous changes are present with small areas of nodularity, unchanged. The heart is upper limit of normal in size. No displaced fractures identified. Degenerative changes are present in both shoulders. IMPRESSION: No acute intrathoracic abnormalities.
[2024-12-31 23:31] LABS: PT Prothrombin Time 13.3 SECONDS (10-13.0); Protime INR 1.18
[2024-12-31 23:33] LABS: Absolute Basophils 0.1 K/uL (0-0.5); Absolute Eosinophils 0.3 K/uL (0-0.5); Absolute Lymphocytes (CBC) 2.4 K/uL (0.7-4.9); Absolute Monocytes 0.8 K/uL (0.1-1.3); Absolute Neutrophil 6.7 K/uL (1.8-8.0); Basophils % 1.4 % (0-1.3); Eosinophils % 3.1 % (0-4.4); Hematocrit 41.1 % (39.6-49.0); Hemoglobin 14.4 g/dL (13.6-17.9); MCH 31.2 pg (27.0-35.0); MCV 88.9 fL (80-100); MPV 6.6 fL (7.6-11.3); Neutrophils % 64.5 % (41.7-73.7); Nucleated Red Blood Cells % 0.3 % (0-0); Platelets 295 thou/uL (152-406); RBC Red Blood Cell Count 4.62 M/uL (4.33-5.43); Red Cell Distribution Width 16.3 % (12.1-15.2)
[2025-01-01] LABS: Albumin 2.1 g/dL (3.4-5.0); Albumin/Globulin Ratio 0.4 (1.1-1.8); Anion Gap 9.5 mEq/L (5.0-15.0); BETA HYDROXYBUTYRATE 0.05 mmol/L (0.02-0.27); Bilirubin Direct 0.6 mg/dL (0-0.2); Bilirubin Indirect, Calculated 0.6 mg/dL (0.2-0.8); Bilirubin Total 1.2 mg/dL (0.2-1.0); Globulin 5.1 g/dL (2.3-3.5); Potassium 3.5 mEq/L (3.5-5.1); Protein, Total 7.2 g/dL (6.4-8.2); Troponin High Sensitivity 11.2 pg/mL (<58.9)
[2025-01-01] MEDS ORDERED: NA CHLORIDE 0.9% 500 ML ONE (01:13)
--- NOTE | 2025-01-01 02:15 | EDPHYS ---
Physician Documentation [facility] Name: Tutu Harrington Age: 69 yrs Sex: Male : 1955 Arrival Date: 12/31/2024 Time: 19:55 Bed 19 Private MD: ED Physician Jovan Mari HPI: 12/31 21:05 This 69 yrs old Male presents to ER via EMS with complaints of Failure to Thrive. cp 21:05 general weakness and wound check of wound to left forearm. cp 21:05 patient denies chest pain. reports decreased appetite. cp Historical: - Allergies: 20:25 No Known Allergies; le1 - PMHx: 20:25 Arthritis; BPH (Unknown); COPD; Diabetes - Refused Insulin; le1 - Immunization history:: Adult Immunizations unknown, Client reports having NOT received the Covid vaccine. - Infectious Disease History:: Denies. ROS: 21:10 Constitutional: Positive for poor PO intake, Negative for body aches, chills, fever, cp 21:10 Cardiovascular: Negative for chest pain, cp 21:10 Respiratory: Negative for cough, shortness of breath, wheezing, 21:10 Eyes: Negative for injury, pain, redness, and discharge, cp 21:10 Abdomen/GI: Negative for abdominal pain, vomiting, diarrhea, constipation, 21:10 : Negative for urinary symptoms, 21:10 Neuro: Positive for weakness, Negative for altered mental status, dizziness, headache, 21:10 All other systems are negative, Exam: 21:15 Constitutional: The patient appears in no acute distress, alert, awake, cp non-diaphoretic, non-toxic, well developed, unkempt, 21:15 Head/Face: Normocephalic, atraumatic. cp 21:15 Eyes: Periorbital structures: appear normal, Conjunctiva: normal, no exudate, no injection, Sclera: no appreciated abnormality, Lids and lashes: appear normal, bilaterally, 21:15 ENT: External ear(s): are unremarkable, Nose: is normal, Mouth: Lips: moist, Oral mucosa: moist, Posterior pharynx: Airway: no evidence of obstruction, patent, 21:15 Neck: ROM/movement: is normal, is supple, without pain, no range of motions limitations, 21:15 Chest/axilla: Inspection: normal, Palpation: is normal, no crepitus, no tenderness, 21:15 Cardiovascular: Rate: tachycardic, Rhythm: regular, Edema: ankle edema, that is mild, JVD: is not appreciated, 21:15 Respiratory: the patient does not display signs of respiratory distress, Respirations: normal, no use of accessory muscles, no retractions, labored breathing, is not present, Breath sounds: are clear throughout, no decreased breath sounds, no stridor, no wheezing, 21:15 Abdomen/GI: Inspection: abdomen appears normal, Bowel sounds: active, all quadrants, Palpation: abdomen is soft and non-tender, in all quadrants, 21:15 Skin: moderate skin tear noted left forearm with mild bleeding, no erythema and no purulent drainage. 21:15 Neuro: Orientation: to person, place \T\ time. Mentation: is normal, Motor: no acute changes, moves all fours, Sensation: no obvious gross deficits, 23:40 ECG was reviewed by the Attending Physician. Vital Signs: 20:20 BP 130 / 70; Pulse 109; Resp 16; Temp 98.8(A); Pulse Ox 97% on R/A; le1 21:06 BP 145 / 82; Pulse 108; Resp 16; Pulse Ox 95% on R/A; al5 22:00 BP 128 / 76; Pulse 97; Resp 16; Pulse Ox 97% on R/A; al5 23:00 BP 127 / 73; Pulse 105; Resp 15; Pulse Ox 96% on R/A; al5 03/16 00:00 BP 134 / 73; Pulse 102; Resp 18; Pulse Ox 95% ; al5 01:00 BP 131 / 75; Pulse 104; Resp 18; Pulse Ox 97% ; al5 02:00 BP 134 / 73; Pulse 101; Resp 16; Pulse Ox 96% ; al5 04:00 BP 137 / 76; Pulse 105; Resp 16; Pulse Ox 95% on R/A; al5 05:20 BP 127 / 76; Pulse 101; Resp 16; Pulse Ox 96% on R/A; al5 MDM: 12/31 20:08 Medical Screening Exam initiated cp 01/01 02:13 Data reviewed: vital signs, nurses notes, lab test result(s), EKG, radiologic studies, cp plain films, and as a result, I will discharge patient. 02:13 Differential Diagnosis altered mental status, sepsis, flu, hyperglycemia, noncompliant cp with medications. I considered the following discharge prescriptions or medication management in the emergency department Medications were administered in the Emergency Department. See MAR. Independent interpretation of the following test(s) in the Emergency Department EKG: See my EKG interpretation above. Care significantly affected by the following chronic conditions: Diabetes, Chronic Obstructive Pulmonary Disease. Counseling: I had a detailed discussion with the patient and/or guardian regarding the historical points, exam findings, and any diagnostic results supporting the discharge/admit diagnosis, lab results, radiology results, the need for outpatient follow up, a family practitioner, to return to the emergency department if symptoms worsen or persist or if there are any questions or concerns that arise at home. Response to treatment: the patient's symptoms have mildly improved after treatment, and as a result, I will discharge patient. 12/31 20:05 Order name: Basic Metabolic Panel; Complete Time: 00:25 cp 01/01 00:25 Interpretation: Normal except: NA 135; BUN 19; CRE 0.69; CA 8.3. cp 12/31 21: Order name: CBC with Diff; Complete Time: 00:25 cp 01/01 00:25 Interpretation: Normal except: RDW 16.3; MPV 6.6; BASO% 1.4. cp 12/31 21:05 Order name: LFT's; Complete Time: 00:25 cp 01/01 00:25 Interpretation: Normal except: ALK 240; BILIT 1.2; BILID 0.6; ALB 2.1; GLOB 5.1; A/G cp 0.4. 12/31 21:05 Order name: Magnesium; Complete Time: 00:25 cp 12/31 21:05 Order name: NT PRO-BNP; Complete Time: 00:25 cp 01/01 00:26 Interpretation: Abnormal: NT PRO-BNP 758. cp 12/31 21:05 Order name: PT-INR; Complete Time: 23:36 cp 12/31 23:36 Interpretation: Reviewed. cp 12/31 21: Order name: Troponin HS; Complete Time: 00:25 cp 01/01 00:26 Interpretation: Reviewed. cp 12/31 21:05 Order name: BETA HYDROXYBUTYRATE; Complete Time: 00:25 cp 01/01 00:10 Order name: Glucose, Ancillary Testing; Complete Time: 00:25 EDMS 12/31 21:05 Order name: XRAY Chest (1 view); Complete Time: 22:24 cp 01/01 00:26 Interpretation: Report review. cp 12/31 21:05 Order name: EKG; Complete Time: 21:05 cp 12/31 21:05 Order name: Cardiac monitoring; Complete Time: 23:06 cp 12/31 21:05 Order name: EKG - Nurse/Tech; Complete Time: 23:48 cp 12/31 21:05 Order name: IV Saline Lock; Complete Time: 23:06 cp 12/31 21:05 Order name: Labs collected and sent; Complete Time: 23:06 cp 12/31 21:05 Order name: O2 Per Protocol; Complete Time: 22:58 cp 12/31 21:05 Order name: O2 Sat Monitoring; Complete Time: 22:58 cp 12/31 21:05 Order name: Accucheck Blood Glucose; Complete Time: 23:58 cp 01/01 00:27 Order name: PO challenge: food and drink; Complete Time: 01:17 cp 01/01 00:27 Order name: Wound dressing; Complete Time: 04:48 cp EC/15 23:40 Rate is 107 beats/min. Rhythm is regular. SC interval is normal. QRS interval is cp prolonged at 148 msec. QT interval is normal. T waves are Inverted in lead V2. Interpreted by me. Reviewed by me. Administered Medications: 01/01 01:17 Drug: NS 0.9% IV 500 ml 500 ml IV at 1 bolus once; to be given as a bolus over 30 al5 minutes Volume: 500 ml; Route: IV; Rate: 1 bolus; Site: right antecubital; 04:30 Follow up: Response: No adverse reaction; IV Status: Completed infusion; IV Intake: al5 500ml Disposition Summary: 01/01/25 02:14 Discharge Ordered Notes: Location: Home cp Problem: an ongoing problem cp Symptoms: have improved cp Condition: Stable cp Diagnosis - Arm Laceration Left/ Open wound of forearm - left cp - Muscle weakness (generalized) cp Followup: cp - With: Private Physician - When: 2 - 3 days - Reason: Recheck today's complaints Discharge Instructions: - Discharge Summary Sheet cp - Weakness cp - Wound Care, Adult cp Forms: - Medication Reconciliation Form cp - Antibiotic Education cp - Prescription Opioid Use cp - Patient Portal Instructions cp - Leadership Thank You Letter cp Addendum: 01/03/2025 00:16 I was immediately available for consultation during this patient's visit. I did not e c2 personally see the patient or discuss the patient with the TIANA. . Signatures: Dispatcher [employer] EDMS Jayme Coburn PA PA cp Corral, Edwin, MD MD ec2 Enedina Avalos RN RN al5 John Smith RN RN le1
--- NOTE | 2025-01-01 02:15 | ER ---
Nurse's Notes [facility] Name: Tutu Harrington Age: 69 yrs Sex: Male : 1955 Arrival Date: 12/31/2024 Time: 19:55 Bed 19 Private MD: Diagnosis: Arm Laceration Left/ Open wound of forearm-left;Muscle weakness (generalized) Presentation: 12/31 20:20 Chief complaint: EMS states: EMS states patient son called for failure to thrive. Upon le1 arrival patient found to be unkempt sitting in feces. Patient states he is here because he is unable to lift his L arm. 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 Also states patient has swelling to lower extremities and has been off all medications for unknown amount of time. Coronavirus screen: Vaccine status: Patient reports being unvaccinated. Client denies travel out of the [place] in the last 14 days. At this time, the client does not indicate any symptoms associated with coronavirus-19. Ebola Screen: Patient negative for fever greater than or equal to 101.5 degrees Fahrenheit, and additional compatible Ebola Virus Disease symptoms Patient denies exposure to infectious person. Patient denies travel to an Ebola-affected area in the 21 days before illness onset. No symptoms or risks identified at this time. Initial Sepsis Screen: Does the patient meet any 2 criteria? HR > 90 bpm. No. Patient's initial sepsis screen is negative. Does the patient have a suspected source of infection? No. Patient's initial sepsis screen is negative. Risk Assessment: Do you want to hurt yourself or someone else? Patient reports no desire to harm self or others. Onset of symptoms is unknown. 20:20 Method Of Arrival: [facility] le1 20:20 Acuity: JESSA 3 le1 Triage Assessment: 20:26 General: Appears unkempt, Behavior is calm, cooperative. Pain: Denies pain. le1 Historical: - Allergies: 20:25 No Known Allergies; le1 - PMHx: 20:25 Arthritis; BPH (Unknown); COPD; Diabetes - Refused Insulin; le1 - Immunization history:: Adult Immunizations unknown, Client reports having NOT received the Covid vaccine. - Infectious Disease History:: Denies. Screenin:06 [facility] ED Fall Risk Assessment (Adult) History of falling in the last 3 months, al5 including since admission No falls in past 3 months (0 pts) Confusion or Disorientation No (0 pts) Intoxicated or Sedated No (0 pts) Impaired Gait Yes (1 pt) Mobility Assist Device Used No (0 pt) Altered Elimination No (0 pt) Score/Fall Risk Level 0 - 2 = Low Risk Oriented to surroundings, Maintained a safe environment, Hourly rounding (assess needs \\T\\ fall precautionary measures) done. Abuse screen: Denies threats or abuse. Denies injuries from another. Nutritional screening: patient has been having weight loss. patient states he "is here for food, shower, and to go to assisted living.". Tuberculosis screening: No symptoms or risk factors identified. Assessment: 21:06 General: Appears in no apparent distress. comfortable, slender, unkempt, Behavior is al5 calm, cooperative. Pain: Complains of pain in dorsal aspect of left forearm. Neuro: Level of Consciousness is awake, alert, obeys commands, Oriented to person, place, time, situation. Cardiovascular: Capillary refill < 3 seconds Patient's skin is warm and dry. Respiratory: Airway is patent Respiratory effort is even, unlabored, Respiratory pattern is regular, symmetrical. GI: No signs and/or symptoms were reported involving the gastrointestinal system. : No signs and/or symptoms were reported regarding the genitourinary system. EENT: No signs and/or symptoms were reported regarding the EENT system. Derm: Skin with poor turgor has skin tears on L forearm Skin is dry, Skin is normal, Skin temperature is warm. Musculoskeletal: No signs and/or symptoms reported regarding the musculoskeletal system. 22:50 Reassessment: Patient appears in no apparent distress at this time. No changes from al5 previously documented assessment. Patient and/or family updated on plan of care and expected duration. Pain level reassessed. Patient is alert, oriented x 3, equal unlabored respirations, skin warm/dry/pink. 23:47 Reassessment: Patient appears in no apparent distress at this time. No changes from al5 previously documented assessment. Patient and/or family updated on plan of care and expected duration. Pain level reassessed. Patient is alert, oriented x 3, equal unlabored respirations, skin warm/dry/pink. 01/01 01:17 Reassessment: Patient appears in no apparent distress at this time. No changes from al5 previously documented assessment. Patient and/or family updated on plan of care and expected duration. Pain level reassessed. Patient is alert, oriented x 3, equal unlabored respirations, skin warm/dry/pink. 02:14 Reassessment: discharge pending fluids. al5 04:00 Reassessment: Patient appears in no apparent distress at this time. No changes from al5 previously documented assessment. Patient and/or family updated on plan of care and expected duration. Pain level reassessed. Patient is alert, oriented x 3, equal unlabored respirations, skin warm/dry/pink. fluids finished at this time. 04:30 Reassessment: patient wiped down from head to toe in CHG wipes. patient brief changed al5 and cleaned and patient placed in paper scrubs and yellow non slip socks at this time. 05:20 Reassessment: Patient appears in no apparent distress at this time. No changes from al5 previously documented assessment. Patient and/or family updated on plan of care and expected duration. Pain level reassessed. Patient is alert, oriented x 3, equal unlabored respirations, skin warm/dry/pink. patient [facility] home [facility]. Vital Signs: 12/31 20:20 BP 130 / 70; Pulse 109; Resp 16; Temp 98.8(A); Pulse Ox 97% on R/A; le1 21:06 BP 145 / 82; Pulse 108; Resp 16; Pulse Ox 95% on R/A; al5 22:00 BP 128 / 76; Pulse 97; Resp 16; Pulse Ox 97% on R/A; al5 23:00 BP 127 / 73; Pulse 105; Resp 15; Pulse Ox 96% on R/A; al5 01/01 00:00 BP 134 / 73; Pulse 102; Resp 18; Pulse Ox 95% ; al5 01:00 BP 131 / 75; Pulse 104; Resp 18; Pulse Ox 97% ; al5 02:00 BP 134 / 73; Pulse 101; Resp 16; Pulse Ox 96% ; al5 04:00 BP 137 / 76; Pulse 105; Resp 16; Pulse Ox 95% on R/A; al5 05:20 BP 127 / 76; Pulse 101; Resp 16; Pulse Ox 96% on R/A; al5 ED Course: 12/31 19:56 Patient arrived in ED. jj6 20:08 Jayme Coburn PA is PHCP. cp 20:08 Jovan Mari MD is Attending Physician. cp 20:25 Triage completed. le1 20:27 Arm band placed on right wrist. le1 20:32 Enedina Avalos, RN is Primary Nurse. al5 21:07 Patient has correct armband on for positive identification. Bed in low position. Call al5 light in reach. Side rails up X 1. Provided Education on: plan of care. 21:07 No provider procedures requiring assistance completed. al5 21:47 XRAY Chest (1 view) In Process Unspecified. EDMS 23:00 Inserted saline lock: 22 gauge in left forearm, using aseptic technique. Blood al5 collected. Flushed with 10 mL NS. 01/01 04:30 Wound care: to skin tear located on dorsal aspect of left forearm was cleaned with al5 Hibiclens, dressed with 4X4s, Kerlix, nonadherent, Patient tolerated well. 04:30 IV discontinued, intact, bleeding controlled, No redness/swelling at site. Pressure al5 dressing applied. Administered Medications: 01:17 Drug: NS 0.9% IV 500 ml 500 ml IV at 1 bolus once; to be given as a bolus over 30 al5 minutes Volume: 500 ml; Route: IV; Rate: 1 bolus; Site: right antecubital; 04:30 Follow up: Response: No adverse reaction; IV Status: Completed infusion; IV Intake: al5 500ml Medication: 12/31 22:54 VIS not applicable for this client. al5 Intake: 01/01 04:30 IV: 500ml; Total: 500ml. al5 Outcome: 02:14 Discharge ordered by MD. cp 05:20 Discharged to home via ambulance, al5 05:20 Condition: good 05:20 Discharge instructions given to patient, Instructed on discharge instructions, follow up and referral plans. Demonstrated understanding of instructions, follow-up care, 05:43 Patient left the ED. al5 Signatures: Dispatcher [employer] EDWI Jayme Coburn PA PA cp Jeffries, Jennifer jj6 Enedina Avalos RN RN al5 John Smith RN RN le1 Corrections: (The following items were deleted from the chart) 12/31 23:53 21:00 BP 145 / 82; Pulse 108bpm; Resp 16bpm; Pulse Ox 95% RA; al5 al5 01/01 05:40 04:00 Reassessment: Patient appears in no apparent distress at this time. No changes al5 from previously documented assessment. Patient and/or family updated on plan of care and expected duration. Pain level reassessed. Patient is alert, oriented x 3, equal unlabored respirations, skin warm/dry/pink. al5 05:42 05:20 Reassessment: Patient appears in no apparent distress at this time. No changes al5 from previously documented assessment. Patient and/or family updated on plan of care and expected duration. Pain level reassessed. Patient is alert, oriented x 3, equal unlabored respirations, skin warm/dry/pink. patient [facility] home [facility] al5
[2025-01-01 05:47] VITALS: TEMP 98.8
[2025-01-01 05:57] VITALS: BP 127/76; O2SAT 96
== END 2025-01-01 05:43 | disposition home or self-care (01) ==
LOC: ER 19:55
DX: M62.81 Muscle weakness (generalized) (principal); S51.812A Laceration without foreign body of left forearm, initial encounter; E11.9 Type 2 diabetes mellitus without complications
CPT/HCPCS: 96361; 93005; 85025; 80048; 36415; 83735; 85610; 82947; 80076; 84484; 82010; 83880; 71045; 96360; 99284; J7040

== ENCOUNTER 2025-01-09 12:55 | Inpatient (IN) | payer OTHER ==
[2025-01-09] MEDS ORDERED: NA CHLORIDE 0.9% 1,000 ML ONE (13:02)
[2025-01-09] MEDS ORDERED: NA CHLORIDE 0.9% 50 ML ONE (13:11)
[2025-01-09] MEDS ORDERED: CEFTRIAXONE 1000 MG/VIAL ONE (13:11)
[2025-01-09 14:28] LABS: Absolute Basophils 0.1 K/uL (0-0.5); Absolute Eosinophils 0.2 K/uL (0-0.5); Absolute Lymphocytes (CBC) 2.8 K/uL (0.7-4.9); Absolute Monocytes 0.5 K/uL (0.1-1.3); Absolute Neutrophil 4.3 K/uL (1.8-8.0); Basophils % 0.8 % (0-1.3); Eosinophils % 2.8 % (0-4.4); Hemoglobin 13.7 g/dL (13.6-17.9); Lymphocytes % 35.1 % (15.3-44.8); MCH 30.9 pg (27.0-35.0); MCHC 34.4 g/dL (32.0-36.0); MCV 89.9 fL (80-100); MPV 6.6 fL (7.6-11.3); Monocytes % 6.4 % (3.3-12.3); Neutrophils % 54.9 % (41.7-73.7); Nucleated RBC Absolute Count 0.1 (0-0); Nucleated Red Blood Cells % 0.6 % (0-0); Platelets 243 thou/uL (152-406); RBC Red Blood Cell Count 4.45 M/uL (4.33-5.43); Red Cell Distribution Width 16.3 % (12.1-15.2)
[2025-01-09 14:44] LABS: Albumin 1.9 g/dL (3.4-5.0); Albumin/Globulin Ratio 0.4 (1.1-1.8); Bilirubin Total 1.6 mg/dL (0.2-1.0); Globulin 4.7 g/dL (2.3-3.5); Protein, Total 6.6 g/dL (6.4-8.2)
--- NOTE | 2025-01-09 14:48 | RAD REPORT ---
EXAMINATION: CT ABDOMEN AND PELVIS WITHOUT CONTRAST CLINICAL INDICATION: ABD PAIN TECHNIQUE: CT abdomen and pelvis was performed, without IV contrast, as per department protocol. Axia l, sagittal and coronal reconstructions were obtained. One or more of the following dose reduction techniques were used: Automated exposure control, adjustment of the mA and kV according to the patien t size, and iterative reconstruction. Unless otherwise specified, incidental findings do not require dedicated imaging follow-up. COMPARISON: 11/24/2024 FINDINGS: The lack of intravenous contrast limits the sensitivity of this exam for evaluation of solid visceral organs, vascular structures, and retroperitoneum. LOWER CHEST: The visualized lung bases are clear. LIVER:Moderate liver cirrhosis pattern. Grossly unremarkable gallbladder. SPLEEN: Mild to moderate splenomegaly. PANCREAS: No mass, ductal dilation, or shirley-pancreatic fluid. ADRENALS: Normal; no mass. KIDNEYS AND URETERS: Normal size and contour. No hydronephrosis. URINARY BLADDER: Normal contour. GASTROINTESTINAL TRACT: Mild ascites. No bowel obstruction. No free intraperitoneal air. APPENDIX: Normal appendix. LYMPH NODES: Significant bulky lymphadenopathy retroperitoneal region, bilateral iliac chain. MUSCULOSKELETAL: Extensive sclerotic lesions throughout the skeleton compatible with metastatic depos its. ADDITIONAL FINDINGS: Bilateral fat-containing inguinal hernias with fluid present on the right. IMPRESSION: No definitively acute finding is evident. Prominent liver cirrhosis with splenomegaly, portal hypertension small amount of ascites. Significant bulky lymphadenopathy retroperitoneum. This is likely metastatic. Areas of sclerosis are present throughout the osseous structures compatible with metastatic disease.
--- NOTE | 2025-01-09 16:02 | ER ---
Nurse's Notes [facility] Name: Tutu Harrington Age: 69 yrs Sex: Male : 1955 Arrival Date: 01/09/2025 Time: 12:55 Bed 2 Private MD: Diagnosis: Weakness;Pressure ulcer of sacral region, stage 1;Hypoalbuminemia Presentation: 01/09 13:00 Chief complaint: EMS states: Called to patients home for abdominal pain and pain to his cm10 buttocks. Pt recently diagnosed with Liver and prostate cancer. Pt also noted to have bed sores to sacral regions. Pt has had recent weight loss and unable to walk. APS at patients home due to living conditions. Coronavirus screen: Client denies travel out of the [place] in the last 14 days. Ebola Screen: Patient denies travel to an Ebola-affected area in the 21 days before illness onset. Initial Sepsis Screen: Does the patient meet any 2 criteria? No. Patient's initial sepsis screen is negative. Does the patient have a suspected source of infection? No. Patient's initial sepsis screen is negative. Risk Assessment: Do you want to hurt yourself or someone else? Patient reports no desire to harm self or others. Onset of symptoms was January 09, 2025. Care prior to arrival: Glucose check: 95. 13:00 Method Of Arrival: EMS: [facility] 13:00 Acuity: JESSA 3 cm10 Triage Assessment: 13:09 General: Appears distressed, ill, unkempt, Behavior is cooperative, appropriate for bp age, anxious. Pain: Complains of pain in buttocks. EENT: No deficits noted. Neuro: Level of Consciousness is awake, alert, obeys commands, Oriented to Appropriate for age. Cardiovascular: Rhythm is sinus rhythm. Respiratory: No deficits noted. GI: Reports lower abdominal pain. : No signs and/or symptoms were reported regarding the genitourinary system. Derm: No deficits noted. Musculoskeletal: Reports weakness in right leg and left leg. Historical: - Allergies: 12:58 No Known Allergies; cm10 - Home Meds: 12:58 Propranolol Oral [Active]; Metformin Oral [Active]; Albuterol Nebulizer [Active]; cm10 - PMHx: 12:58 Arthritis; BPH (Unknown); COPD; Diabetes - Refused Insulin; Liver Cancer; Prostate cm10 Cancer; Screenin:04 [facility] ED Fall Risk Assessment (Adult) History of falling in the last 3 months, bp including since admission No falls in past 3 months (0 pts) Confusion or Disorientation No (0 pts) Intoxicated or Sedated No (0 pts) Impaired Gait No (0 pts) Mobility Assist Device Used No (0 pt) Altered Elimination No (0 pt) Score/Fall Risk Level 0 - 2 = Low Risk Oriented to surroundings. Abuse screen: Denies threats or abuse. Denies injuries from another. Nutritional screening: No deficits noted. Tuberculosis screening: No symptoms or risk factors identified. Assessment: 13:00 General: Appears distressed, unkempt, Behavior is cooperative, appropriate for age, bp anxious. 15:00 Reassessment: No changes from previously documented assessment. Patient is alert, bp oriented x 3, equal unlabored respirations, skin warm/dry/pink. 16:30 Reassessment: Patient appears in no apparent distress at this time. Patient and/or jb4 family updated on plan of care and expected duration. Pain level reassessed. Patient is alert, oriented x 3, equal unlabored respirations, skin warm/dry/pink. report received from YOLI Lizarraga. 17:33 Reassessment: Patient appears in no apparent distress at this time. Patient and/or jb4 family updated on plan of care and expected duration. Pain level reassessed. Patient is alert, oriented x 3, equal unlabored respirations, skin warm/dry/pink. 18:45 Reassessment: Pt noted to be excoriated in the groin, and sacral area. Stage 2 bed jb4 sores noted to the sacral area and unstageable wound to the left hip area, dime sized stage to to the outer aspect of the left knee. Receiving nurse notified. Pt cleaned, linens changed ABD pad dressing applied to bed sores on the left hip and sacral area. Pt reports being very tender to the sacral area. Vital Signs: 13:08 BP 109 / 61; Pulse 74; Resp 16; Temp 98; Pulse Ox 100% ; bp 15:00 BP 100 / 64; Pulse 72; Resp 16; Pulse Ox 100% ; bp 17:32 BP 108 / 61; Pulse 84; Resp 16; Pulse Ox 95% on R/A; jb4 ED Course: 12:57 Patient arrived in ED. cm10 13:00 Zia Lang, RN is Primary Nurse. bp 13:00 Jovan Mari MD is Attending Physician. ec2 13:02 Triage completed. cm10 13:03 Arm band placed on right wrist. Patient placed in an exam room, on a stretcher. cm10 14:04 Patient has correct armband on for positive identification. Bed in low position. bp 14:04 Initial lab(s) drawn, by me, sent to lab. Inserted saline lock: 20 gauge in left EJ, bp using aseptic technique. Blood collected. Flushed with 10 mL NS. 14:18 Abdomen In Process Unspecified. EDMS 14:[address] cm10 16:01 Ivan Aguayo MD is Hospitalizing Provider. ec2 17:33 Provided Education on: plan of care. jb4 17:33 No provider procedures requiring assistance completed. Patient admitted, IV remains in jb4 place. Administered Medications: 14:05 Drug: NS 0.9% IV 1000 ml IV at 1 bolus Per protocol; to be given as a bolus over 60 bp minutes Route: IV; Rate: 1 bolus; Site: left jugular; 14:05 Drug: Rocephin IV 1 grams IV at bolus once; Given slow IV push per pharmacy bp instructions Route: IV; Rate: bolus; Site: left jugular; Medication: 17:33 VIS not applicable for this client. jb4 Outcome: 16:01 Decision to Hospitalize by Provider. ec2 17:33 Admitted to Med/surg accompanied by tech, via stretcher, room 209, with chart, jb4 17:33 Condition: stable 17:33 Discharge instructions given to patient, Instructed on the need for admit, Demonstrated understanding of instructions, 19:07 Patient left the ED. jb4 Signatures: Dispatcher [employer] EDAniceto West RN RN jb4 Zia Lang, Mikki Swanson RN, RN RN 10 Jovan Mari MD MD ec2
--- NOTE | 2025-01-09 16:02 | EDPHYS ---
Physician Documentation [facility] Name: Tutu Harrington Age: 69 yrs Sex: Male : 1955 Arrival Date: 01/09/2025 Time: 12:55 Bed 2 Private MD: ED Physician Jovan Mari HPI: 01/09 13:09 This 69 yrs old Male presents to ER via EMS with complaints of Abdominal Pain.ec2 13:09 Patient arrives today for evaluation of lower abdominal pain ongoing for 1 month. EMS ec2 reports that he is also had some chronic wounds. Patient has been having poor p.o. intake and been losing weight, lives alone next to son who has been caring for him. No recent falls or injuries or trauma.. Historical: - Allergies: 12:58 No Known Allergies; cm10 - Home Meds: 12:58 Propranolol Oral [Active]; Metformin Oral [Active]; Albuterol Nebulizer [Active]; cm10 - PMHx: 12:58 Arthritis; BPH (Unknown); COPD; Diabetes - Refused Insulin; Liver Cancer; Prostate cm10 Cancer; ROS: 13:13 Constitutional: as per hpi ec2 Exam: 13:13 Constitutional: GEN: NAD Head: atraumatic Eyes: EOMI Ears: External ears are ec2 normal. CV: regular rate LUNGS: no respiratory distress ABD: non-distended SKIN: Stage I pressure wounds noted to the buttock, no discharge noted MSK: no evidence of trauma Vital Signs: 13:08 BP 109 / 61; Pulse 74; Resp 16; Temp 98; Pulse Ox 100% ; bp 15:00 BP 100 / 64; Pulse 72; Resp 16; Pulse Ox 100% ; bp 17:32 BP 108 / 61; Pulse 84; Resp 16; Pulse Ox 95% on R/A; jb4 MDM: 13:00 Medical Screening Exam initiated ec2 13:13 Data reviewed: vital signs, nurses notes. ED course: Patient arrives today d/t concern ec2 for abd pain, gen weakness and buttock wounds. exam shows buttock wounds as above, will obtain labs, ctap, give crystalloid and empirically treat w/ rocephin. ddx includes, pressure wounds, cellulitis, intra-abd infection. 15:57 ED course: Labs overall reassuring. No significant CK elevation. CT abdomen pelvis ec2 shows known liver cancer along with trace amount of ascites. No acute finding evident. Will admit the patient for sacral ulcers.. 01/09 13:04 Order name: CBC with Diff; Complete Time: 14:50 ec2 01/09 13:04 Order name: CMP; Complete Time: 14:50 ec2 01/09 13:04 Order name: Lipase; Complete Time: 14:50 ec2 01/09 13:09 Order name: CK; Complete Time: 15:57 ec2 01/09 13:09 Order name: UAM ec2 01/09 14:05 Order name: Abdomen ; Complete Time: 14:50 EDMS 01/09 13:04 Order name: IV Saline Lock; Complete Time: 14:05 ec2 01/09 13:04 Order name: Labs collected and sent; Complete Time: 14:05 ec2 Administered Medications: 14:05 Drug: NS 0.9% IV 1000 ml IV at 1 bolus Per protocol; to be given as a bolus over 60 bp minutes Route: IV; Rate: 1 bolus; Site: left jugular; 14:05 Drug: Rocephin IV 1 grams IV at bolus once; Given slow IV push per pharmacy bp instructions Route: IV; Rate: bolus; Site: left jugular; Disposition Summary: 01/09/25 16:01 Hospitalization Ordered Notes: Hospitalization Status: Inpatient Admission ec2 Provider: Ivan Aguayo ec2 [facility] Condition: Stable ec2 Problem: an acute exacerbation ec2 Symptoms: are unchanged ec2 Bed/Room Type: Standard ec2 Room Assignment: 209(01/09/25 17:24) bd Diagnosis - Weakness ec2 - Pressure ulcer of sacral region, stage 1 ec2 - Hypoalbuminemia ec2 Forms: - Medication Reconciliation Form ec2 - SBAR form ec2 - Leadership Thank You Letter ec2 Signatures: Dispatcher [employer] EDOdilia Blas Brian, RN RN bp Mikki Aguilar RN RN cm10 Jovan Mari MD MD ec2 Corrections: (The following items were deleted from the chart) 13:04 13:04 CBC+H.LAB.BRZ ordered. EDMS EDMS 13:04 13:04 COMPREHENSIVE METABOLIC PANEL+C.LAB.BRZ ordered. EDMS EDMS 13:04 13:04 LIPASE+C.LAB.BRZ ordered. EDMS EDMS 13: 13:04 Abdomen Pelvis W Con+CT.RAD.BRZ ordered. EDMS EDMS 13: 13:09 Patient arrives today for evaluation of lower abdominal pain ongoing for 1 month. ec2 EMS reports that he is also had some chronic wounds.. ec2 17:24 16:01 ec2 bd
[2025-01-09 19:22] LABS: Specific Gravity 1.017 (1.005-1.030); Sqamous Epithelial <5 /HPF (None Seen); Urine Bacteria <20 /HPF (<20); Urine Bilirubin NEGATIVE (Negative); Urine Blood 3+ (Negative); Urine Clarity Extremely Turbid (Clear); Urine Color Yellow (Yellow); Urine Crystals Unidentified Few /HPF (None Seen); Urine Culture Reflex Order REFLEXED; Urine Glucose NEGATIVE (Negative); Urine Ketones NEGATIVE (Negative); Urine Micro Reflex YN NO BILL MICROSCOPIC; Urine Mucus Slight /HPF (None Seen); Urine Nitrite NEGATIVE (Negative); Urine Protein NEGATIVE (Negative); Urine RBC <5 /HPF (None Seen); Urine Urobilinogen 2+ (Normal); Urine WBC >50 /HPF (<5); Urine WBC Clump Occasional /HPF (None Seen); Urine Yeast (Budding) Trace /HPF (None Seen); Urine pH 5.5 (5.0-7.0)
[2025-01-09] MEDS: NA CHLORIDE 0.9% 1,000 ML IV SCH (19:34)
[2025-01-09] MEDS: MORPHINE 2 MG/ML SYR IV PRN (21:31)
[2025-01-09] MEDS: ONDANSETRON 4 MG/2 ML VIAL IV PRN (21:43)
[2025-01-10 05:07] LABS: Absolute Basophils 0.1 K/uL (0-0.5); Absolute Eosinophils 0.3 K/uL (0-0.5); Absolute Lymphocytes (CBC) 2.7 K/uL (0.7-4.9); Absolute Monocytes 0.6 K/uL (0.1-1.3); Absolute Neutrophil 5.5 K/uL (1.8-8.0); Basophils % 1.3 % (0-1.3); Eosinophils % 2.8 % (0-4.4); Hematocrit 38.1 % (39.6-49.0); Hemoglobin 13.3 g/dL (13.6-17.9); Lymphocytes % 29.3 % (15.3-44.8); MCH 31.1 pg (27.0-35.0); MCHC 34.8 g/dL (32.0-36.0); MCV 89.6 fL (80-100); MPV 6.5 fL (7.6-11.3); Monocytes % 6.4 % (3.3-12.3); Neutrophils % 60.2 % (41.7-73.7); Nucleated Red Blood Cells % 0.4 % (0-0); Platelets 252 thou/uL (152-406); RBC Red Blood Cell Count 4.26 M/uL (4.33-5.43); Red Cell Distribution Width 17.2 % (12.1-15.2)
--- NOTE | 2025-01-10 05:08 | P.HP ---
Certification for Inpatient Patient admitted to: Inpatient With expected LOS: >2 Midnights Patient will require the following post-hospital care: Hospice Practitioner: I am a practitioner with admitting privileges, knowledge of patient current condition, hospital course, and medical plan of care. Services: Services provided to patient in accordance with Admission requirements found in Title 42 Section 412.3 of the Code of Federal Regulations Patient History Date of Service: 01/09/25 Reason for admission: Patient with metastatic liver/Prostate cancer History of Present Illness: Patient is a 69-year-old gentleman who came to the hospital with metastatic liver and prostate cancer. Adult protective service was actually called and they went and did a welfare check and patient was not in a great living condition. Patient's son ended up having her at take patient to the hospital. Patient with a history of prostate cancer that has been untreated as well as metastatic liver cancer. Patient's had family members with cancer treatment and he feels like they do worse with chemotherapy. He did not want to undergo any chemotherapy. He would prefer to go to [facility] under hospice care. Patient was admitted for placement and will also try to get hospice care involved as well. Patient does not want to be resuscitated and we had a long discussion regarding this as well. Allergies No Known Allergies Allergy (Unverified 04/07/24 17:31) - Past Medical/Surgical History Diabetic: Yes -: DM -: COPD -: Arthritis -: BPH -: Prostate cancer -: Liver cancer -: Denies Psychosocial/ Personal History: Lives with his Son. Heavy smoker. Past EtOH. Incontinent of urine. - Family History Mother History Unknown: Yes Medical History: Other (see notes) Notes: Thyroid problems - Social History Smoking Status: Current some day smoker Alcohol use: No CD- Drugs: No Caffeine use: Yes Place of Residence: Home Review of Systems 10-point ROS is otherwise unremarkable Physical Examination - Vital Signs Temperature: 98.3 F Blood Pressure: 126/67 Pulse: 100 Respirations: 16 Pulse Ox (%): 95 - Physical Exam General: Alert, In no apparent distress, Cachectic HEENT: Atraumatic, PERRLA, Mucous membr. moist/pink, EOMI, Sclerae nonicteric Neck: Supple, 2+ carotid pulse no bruit, No LAD, Without JVD or thyroid abnormality Respiratory: Clear to auscultation bilaterally, Normal air movement Cardiovascular: Regular rate/rhythm, Normal S1 S2 Gastrointestinal: Normal bowel sounds, No tenderness Musculoskeletal: No clubbing, No swelling, No tenderness Integumentary: Pressure ulcer (Stage II on the sacral region and the buttocks), Other (Multiple abrasions on the arm with skin breakdown and pressure ulcer) Neurological: Normal speech, Normal tone, Sensation intact, Cranial nerves 3-12 intact, Normal affect, Abnormal gait, Abnormal strength Lymphatics: No axilla or inguinal lymphadenopathy - Studies Laboratory Data (last 24 hrs) 01/09/25 01/09/25 14:05 14:05 WBC 7.90 Hgb 13.7 Hct 40.0 Plt Count 243 Sodium 137 Potassium 4.0 BUN 28 H Creatinine 0.75 Glucose 88 Total Bilirubin 1.6 H AST 32 ALT 18 Alkaline Phosphatase 219 H Lipase 34 Assessment & Plan - Problems (Diagnosis) (1) Prostate cancer metastatic to liver Current Visit: Yes Status: Acute (2) Cachectic Current Visit: Yes Status: Acute (3) Sacral decubitus ulcer Current Visit: Yes Status: Acute - Plan Plan: 1. Patient with metastatic prostate cancer with mets to the liver; mets to the bone; patient does not want any further treatment. Recommended going to live at [facility] as he has been in the [facility] area for a long time and he wants to be under hospice care. Patient also does not want to be resuscitated. Orders have been placed. 2. Urinary tract infection; continue with IV antibiotic therapy and switch over to oral antibiotics 3. Stage II sacral decubitus ulcers and buttocks wound; wound care consultation and palliative care treatment 4. Abrasion to the left arm; continue with antibiotic ointment therapy and monitor 5. GI DVT prophylaxis Discharge Plan: Other ([facility] with hospice) - Advance Directives Does patient have a Living Will: No Does patient have a Durable POA for Healthcare: No - Code Status/Comfort Care Code Status: Do Not Attempt Resuscitat Comfort Measures: Hospice Care Critical Care: No Time Spent Managing PTS Care (In Minutes): 45
[2025-01-10 05:14] LABS: PT Prothrombin Time 12.8 SECONDS (10-13.0); PTT, Activated Partial Thromb 25.6 SECONDS (27.2-37.4); Protime INR 1.13
[2025-01-10 05:23] LABS: Albumin 1.9 g/dL (3.4-5.0); Albumin/Globulin Ratio 0.4 (1.1-1.8); Bilirubin Total 1.1 mg/dL (0.2-1.0); Globulin 4.5 g/dL (2.3-3.5); Protein, Total 6.4 g/dL (6.4-8.2)
[2025-01-10] MEDS: CEFTRIAXONE 1,000 MG in NA CHLORIDE 0.9% 50 ML IVPB SCH (08:50)
[2025-01-10] MEDS: ACETAMINOPHEN 500 MG TAB PO PRN (08:55)
[2025-01-10] MEDS: HYDROCODONE/APAP 7.5/325 MG TAB PO PRN (11:18)
--- NOTE | 2025-01-10 13:51 | P.PN ---
Subjective: No chest pain or shortness of breath. No nausea or vomiting. No abdominal pain. No obvious bleeding. Looks comfortable in the bed. Complaining of some discomfort in the bladder area. Objective: General appearance: Alert and comfortable CVS: Normal S1 and S2 Lungs: Clear to auscultation bilaterally Abdomen: Soft, bowel sounds present, no tenderness Extremities: No lower extremity edema 69-year-old patient with metastatic prostate cancer, he is interested in hospice. Cirrhosis and splenomegaly on imaging. Retroperitoneal lymphadenopathy and bone lesions on imagiing. UTI, continue antibiotics, discussed with case management team in MDR's, plan to discharge to facility with hospice.
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
[2025-01-10] MEDS: Mupirocin NASAL 2 APPL/1 GM TUBE NAS SCH (21:23)
[2025-01-10] MEDS: ENSURE ENLIVE 237 ML CAN PO SCH (21:23)
--- NOTE | 2025-01-11 08:12 | P.PN ---
Date of Service: 01/11/25 Subjective Sleeping but easily awakens no new complaints awaiting [facility] approval ROS 10 point ROS as noted above, otherwise negative Physical Exam General: AAO x3, Cachectic, NAD Neck: Supple, 2+ carotid pulse no bruit, No LAD, Without JVD or thyroid abno rmality Respiratory: Clear to auscultation bilaterally, Normal air movement, on RA Cardiovascular: mild tachycardia, Normal S1 S2 Gastrointestinal: NT/ND, soft on palpation Musculoskeletal: No clubbing Integumentary: Pressure ulcer (Stage II on the sacral region and the buttocks), Other (Multiple abrasions on the arm with skin breakdown and pressure ulcer) Neurological: Normal speech, Normal tone, Sensation intact Vitals Reviewed Problem list 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 cachectic Stage II sacral decubitus ulcers and buttocks wound Sacral coccyx stage III Right big toe unstageable Right hip deep tissue injury Left hip unstageable wound UTI Assessment and Plan 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 -patient declines further treatment -requests hospice care, palliative comfort care UTI -continue rocephin -Urine cultures with mixed joanna cachectic -Encourage PO intake -Ensure Enlive Stage II sacral decubitus ulcers and buttocks wound Sacral coccyx stage III Right big toe unstageable Right hip deep tissue injury Left hip unstageable wound -wound care consultation -palliative care treatment -Right big toe unstageable wound recommend Betadine -Right hip deep tissue injury recommend Betadine and foam -Left hip unstageable wound recommend Betadine and foam -Sacral coccyx stage III recommend barrier cream and offloading and low air loss mattress -infectious disease consulted -Wound culture ordered: - left hip wound growing gram negative rods -sacral wound growing staph coagulase positive -Left lower leg wound NGTD -on rocephin DVT ppx SCD DNR Dispo- [facility] Time Spent Managing Pts Care (In Minutes): 35
--- NOTE | 2025-01-11 08:12 | P.PN ---
Date of Service: 01/10/25 Subjective awake but feeling sleepy no new complaint Lost peripheral IV, midline ordered awaiting [facility] approval ROS 10 point ROS as noted above, otherwise negative Physical Exam General: Alert and oriented x3, Cachectic, NAD HEENT: Atraumatic, PERRLA Neck: Supple, 2+ carotid pulse no bruit, No LAD, Without JVD or thyroid abnormality Respiratory: Clear to auscultation bilaterally, Normal air movement, on RA Cardiovascular: Regular rate/rhythm, Normal S1 S2 Gastrointestinal: Normal bowel sounds, NT/ND Musculoskeletal: No clubbing, No swelling, No tenderness Integumentary: Pressure ulcer (Stage II on the sacral region and the buttocks), Other (Multiple abrasions on the arm with skin breakdown and pressure ulcer) Neurological: Normal speech, Normal tone, Sensation intact Vitals Reviewed Problem list 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 cachectic Stage II sacral decubitus ulcers and buttocks wound Sacral coccyx stage III Right big toe unstageable Right hip deep tissue injury Left hip unstageable wound UTI Assessment and Plan 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 -patient declines further treatment -requests hospice care, palliative comfort care UTI -continue rocephin -Urine cultures with mixed joanna cachectic -Encourage PO intake -Ensure Enlive Stage II sacral decubitus ulcers and buttocks wound Sacral coccyx stage III Right big toe unstageable Right hip deep tissue injury Left hip unstageable wound -wound care consultation -palliative care treatment -Right big toe unstageable wound recommend Betadine -Right hip deep tissue injury recommend Betadine and foam -Left hip unstageable wound recommend Betadine and foam -Sacral coccyx stage III recommend barrier cream and offloading and low air loss mattress -infectious disease consulted -Wound culture ordered DVT ppx SCD DNR Dispo- [facility] Time Spent Managing Pts Care (In Minutes): 35
--- NOTE | 2025-01-11 14:29 | PN ---
Subjective: The patient is lying in bed. No new acute event. Chart reviewed. Objective: Vital signs: Reviewed. Lungs: Basal crackles. Heart: S1, S2. Regular. Abdomen: Soft, nontender. Bowel sounds present. Extremities: No edema. Wounds noted. Laboratory Data: Shows WBC 9.1, hemoglobin 13.3, platelets are 252. Chemistry shows BUN of 34, crea tinine 0.7, albumin level is 1.9. Urinalysis showing more than 50 wbc's. The patient currently on R ocephin. Assessment And Plan: 1. The patient with significant history of prostate and liver cancer, metastatic. 2. Multiple wounds including sacrococcyx area, right big toe, and right hip wounds. Continue current treatment. 3. Urinary tract infection. 4. Continue Rocephin total of 14 days. 5. Poor prognosis. Consider comfort care. 6. Monitor signs of infection with WBC and fever trends. NF/MODL Voice ID: [id number] Report ID: [id number]
[2025-01-12 08:14] LABS: Absolute Basophils 0.1 K/uL (0-0.5); Absolute Eosinophils 0.2 K/uL (0-0.5); Absolute Lymphocytes (CBC) 2.2 K/uL (0.7-4.9); Absolute Monocytes 0.5 K/uL (0.1-1.3); Absolute Neutrophil 2.6 K/uL (1.8-8.0); Eosinophils % 3.2 % (0-4.4); Hematocrit 33.6 % (39.6-49.0); Hemoglobin 11.8 g/dL (13.6-17.9); Lymphocytes % 39.3 % (15.3-44.8); MCHC 35.2 g/dL (32.0-36.0); MCV 91.1 fL (80-100); MPV 6.9 fL (7.6-11.3); Monocytes % 9.7 % (3.3-12.3); Neutrophils % 46.8 % (41.7-73.7); Nucleated Red Blood Cells % 0.1 % (0-0); Platelets 159 thou/uL (152-406); RBC Red Blood Cell Count 3.68 M/uL (4.33-5.43)
[2025-01-12 09:47] LABS: Differential Total Cells Count 100; Segmented Neutrophils 58 % (40-80)
[2025-01-12 09:48] LABS: Atypical Lymphocytes 8 %; Band Neutrophils 2 % (0-1); Blood Morphology Comment NOTED (NOT SEEN); Eosinophils 2 % (0-3); Lymphocytes 23 % (15-42); Monocytes 6 % (0-10); Platelet Estimate ADEQ; Platelets, Giant NOTED; Spherocyte FEW
--- NOTE | 2025-01-12 16:53 | P.PN ---
Subjective Date of Service: 01/12/25 Chief Complaint: Patient with metastatic liver/Prostate cancer Subjective: No new changes, C/O voiced (patient asked for the telephone as he is concerned about his financials when he discharges with hospice care) Review of Systems 10-point ROS is otherwise unremarkable General: Weakness Gastrointestinal: Distention Physical Examination - Vital Signs Temperature: 98.4 F Blood Pressure: 122/73 Pulse: 111 Respirations: 18 Pulse Ox (%): 95 - Physical Exam General: Alert, In no apparent distress, Oriented x2 HEENT: Atraumatic, PERRLA, EOMI Neck: Supple, JVD not distended Respiratory: Normal air movement, Diminished Cardiovascular: Regular rate/rhythm, Normal S1 S2 Gastrointestinal: Hypoactive, No tenderness, Distended Musculoskeletal: No tenderness Integumentary: No rashes Neurological: Normal speech, Normal tone, Other (Anxious ) Lymphatics: No axilla or inguinal lymphadenopathy External genitalia: Deferred Rectal: Deferred Assessment And Plan - Plan 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 -Patient declines further treatment - Hospice care with SNF/[place] UTI -Continue rocephin -Urine cultures with mixed joanna Cachectic - Encourage PO intake - Continue Ensure Enlive Stage II sacral decubitus ulcers and buttocks wound Sacral coccyx stage III Right big toe unstageable Right hip deep tissue injury Left hip unstageable wound - Wound care consulted and following - Right big toe unstageable wound recommend Betadine - Right hip deep tissue injury recommend Betadine and foam - Left hip unstageable wound recommend Betadine and foam - Sacral coccyx stage III recommend barrier cream and offloading and low air loss mattress - Infectious disease consulted with recs: Rocephin/Doxy for now - Wound cultures with left hip wound growing gram negative rods, sacral wound growing staph coagulase positive, and Left lower leg wound; NGTD Code status: DNR/Hospice Discharge Plan: Longterm ([facility] with Hospice) - Code Status/Comfort Care Code Status Assessed: Yes (DNR)
--- NOTE | 2025-01-12 19:10 | PN ---
Subjective: The patient lying in bed. No new acute event. Chart reviewed. Objective: Vital signs: Reviewed. Lungs: Basal crackles. Heart: S1, S2. Regular. Abdomen: Soft, nontender. Bowel sounds present. Extremities: No edema. Laboratory Data: Shows WBC 5.6, hemoglobin 11.8, platelets 159. BUN 22, creatinine 0.58. Left hip wound growing Proteus mirabilis. Sacral wound is growing MRSA. Assessment And Plan: Sacral stage IV wound with methicillin-resistant Staphylococcus aureus. Recomm end to apply alginate and start the patient on doxycycline 100 mg IV q.12 hours. Liver, prostate met astatic lesion. Prognosis guarded. Continue Rocephin. Left hip wound with Proteus mirabilis unstag eable. We will follow the patient as needed. NF/MODL Voice ID: [id number] Report ID: [id number]
[2025-01-12] MEDS: DOXYCYCLINE 100 MG in NA CHLORIDE 0.9% 100 ML IVPB SCH (20:39)
--- NOTE | 2025-01-13 14:31 | P.PN ---
Subjective Date of Service: 01/13/25 Chief Complaint: Patient with metastatic liver/Prostate cancer Subjective: No chest pain or shortness of breath. No nausea or vomiting. No abdominal pain. No obvious bleeding. Looks comfortable in the bed. Complaining of some discomfort in the bladder area. Objective: General appearance: Alert and comfortable CVS: Normal S1 and S2 Lungs: Clear to auscultation bilaterally Abdomen: Soft, bowel sounds present, no tenderness ext: mild edema b/l legs with venous stasis changes Physical Examination - Vital Signs Temperature: 97.9 F Blood Pressure: 112/65 Pulse: 101 Respirations: 14 Pulse Ox (%): 96 Assessment And Plan - Plan 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 -Patient declines further treatment - Hospice care with SNF/[place] UTI -ABX per ID Cachectic - Encourage PO intake - Continue Ensure Enlive Stage II sacral decubitus ulcers and buttocks wound Sacral coccyx stage III Right big toe unstageable Right hip deep tissue injury Left hip unstageable wound - Wound care consulted and following - Right big toe unstageable wound recommend Betadine - Right hip deep tissue injury recommend Betadine and foam - Left hip unstageable wound recommend Betadine and foam - Sacral coccyx stage III recommend barrier cream and offloading and low air loss mattress - Infectious disease consulted, cultures polymicrobial including MRSA, d/w Dr. Woodruff this AM, he will review the sensitivities and adjust antibiotics. 69-year-old patient with metastatic prostate cancer, he is interested in hospice. Cirrhosis and splenomegaly on imaging. Retroperitoneal lymphadenopathy and bone lesions on imagiing. UTI, continue antibiotics, discussed with case management team in MDR's, plan to discharge to facility with hospice when bed available. d/w ID.
[2025-01-13] MEDS: PIPER TAZO 3.375 GM in NA CHLORIDE 0.9% 100 ML IV SCH (17:22)
--- NOTE | 2025-01-13 17:56 | PN ---
Subjective: Patient is lying in bed. No new acute event. Awaiting to be transferred to hospice care. Objective: Vital Signs: Temperature 97.9, pulse 100, respirations 14, blood pressure 112/65. Lungs: Basal crackles. Heart: S1, S2. Regular. Abdomen: Soft, nontender. Bowel sounds present. Extremities: No edema. Wound is noted. Laboratory Data: Shows WBC 5.6. Chemistry shows BUN of 22, creatinine 0.5. Micro data shows sacral wound with MRSA, Klebsiella pneumoniae, Proteus penneri region. Left hip wound, Enterobacter cloacae and Proteus penneri. Left leg wound is Staphylococcus aureus. Assessment And Plan: Multiple wounds with poor prognosis as patient has liver and prostate cancer with metastasis. We will continue current antibiotic including doxycycline, discontinue Rocephin, switch to Zosyn. To be continued. We will follow the patient as needed. NF/MODL Voice ID: [id number] Report ID: [id number] [facility]
[2025-01-14 10:51] LABS: Absolute Basophils 0.1 K/uL (0-0.5); Absolute Eosinophils 0.2 K/uL (0-0.5); Absolute Lymphocytes (CBC) 2.1 K/uL (0.7-4.9); Absolute Monocytes 0.5 K/uL (0.1-1.3); Absolute Neutrophil 3.2 K/uL (1.8-8.0); Basophils % 1.4 % (0-1.3); Eosinophils % 3.1 % (0-4.4); Hematocrit 36.5 % (39.6-49.0); Hemoglobin 12.6 g/dL (13.6-17.9); Lymphocytes % 34.5 % (15.3-44.8); MCH 32.1 pg (27.0-35.0); MCHC 34.4 g/dL (32.0-36.0); MCV 93.3 fL (80-100); MPV 6.4 fL (7.6-11.3); Monocytes % 8.8 % (3.3-12.3); Neutrophils % 52.2 % (41.7-73.7); Nucleated Red Blood Cells % 0.3 % (0-0); Platelets 200 thou/uL (152-406); RBC Red Blood Cell Count 3.91 M/uL (4.33-5.43); Red Cell Distribution Width 18.2 % (12.1-15.2)
[2025-01-14 11:06] LABS: Anion Gap 8.2 mEq/L (5.0-15.0); Potassium 4.2 mEq/L (3.5-5.1)
--- NOTE | 2025-01-14 12:42 | P.PN ---
Subjective Date of Service: 01/14/25 Chief Complaint: Patient with metastatic liver/Prostate cancer Subjective: No chest pain or shortness of breath. No nausea or vomiting. No abdominal pain. No obvious bleeding. Looks comfortable in the bed. Complaining of some discomfort in the bladder area. Objective: General appearance: Alert and comfortable CVS: Normal S1 and S2 Lungs: Clear to auscultation bilaterally Abdomen: Soft, bowel sounds present, no tenderness ext: mild edema b/l legs with venous stasis changes Physical Examination - Vital Signs Temperature: 98.9 F Blood Pressure: 119/69 Pulse: 106 Respirations: 14 Pulse Ox (%): 94 Assessment And Plan - Plan 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 -Patient declines further treatment - Hospice care with SNF/[place] UTI -ABX per ID Cachectic - Encourage PO intake - Continue Ensure Enlive Stage II sacral decubitus ulcers and buttocks wound Sacral coccyx stage III Right big toe unstageable Right hip deep tissue injury Left hip unstageable wound - Wound care consulted and following - Right big toe unstageable wound recommend Betadine - Right hip deep tissue injury recommend Betadine and foam - Left hip unstageable wound recommend Betadine and foam - Sacral coccyx stage III recommend barrier cream and offloading and low air loss mattress - Infectious disease consulted, cultures polymicrobial including MRSA, adjusted antibiotics by ID on 01/13. 69-year-old patient with metastatic prostate cancer, he is interested in hospice. Cirrhosis and splenomegaly on imaging. Retroperitoneal lymphadenopathy and bone lesions on imagiing. UTI, continue antibiotics, plan to discharge to facility with hospice when bed available.
--- NOTE | 2025-01-15 11:19 | P.PN ---
Subjective Date of Service: 01/15/25 Chief Complaint: Patient with metastatic liver/Prostate cancer Subjective: No chest pain or shortness of breath. No nausea or vomiting. No abdominal pain. No obvious bleeding. Looks comfortable in the bed. Complaining of some discomfort in the bladder area. Objective: General appearance: Alert and comfortable CVS: Normal S1 and S2 Lungs: Clear to auscultation bilaterally Abdomen: Soft, bowel sounds present, no tenderness ext: mild edema b/l legs with venous stasis changes Physical Examination - Vital Signs Temperature: 98.0 F Blood Pressure: 119/68 Pulse: 102 Respirations: 16 Pulse Ox (%): 94 Assessment And Plan - Plan 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 -Patient declines further treatment - Hospice care with SNF/[place] UTI -ABX per ID Cachectic - Encourage PO intake - Continue Ensure Enlive Stage II sacral decubitus ulcers and buttocks wound Sacral coccyx stage III Right big toe unstageable Right hip deep tissue injury Left hip unstageable wound - Wound care consulted and following - Right big toe unstageable wound recommend Betadine - Right hip deep tissue injury recommend Betadine and foam - Left hip unstageable wound recommend Betadine and foam - Sacral coccyx stage III recommend barrier cream and offloading and low air loss mattress - Infectious disease consulted, cultures polymicrobial including MRSA, adjusted antibiotics by ID on 01/13. 69-year-old patient with metastatic prostate cancer, he is interested in hospice. Cirrhosis and splenomegaly on imaging. Retroperitoneal lymphadenopathy and bone lesions on imagiing. UTI, continue antibiotics, plan to discharge to facility with hospice when bed available. Waiting for placement.
[2025-01-15] MEDS: MORPHINE 2 MG/ML SYR IV PRN (18:24)
[2025-01-16 05:56] LABS: Absolute Eosinophils 0.2 K/uL (0-0.5); Absolute Lymphocytes (CBC) 2.3 K/uL (0.7-4.9); Absolute Monocytes 0.5 K/uL (0.1-1.3); Absolute Neutrophil 2.7 K/uL (1.8-8.0); Basophils % 0.6 % (0-1.3); Eosinophils % 3.9 % (0-4.4); Hematocrit 34.4 % (39.6-49.0); Hemoglobin 11.9 g/dL (13.6-17.9); Lymphocytes % 39.5 % (15.3-44.8); MCH 32.3 pg (27.0-35.0); MCHC 34.5 g/dL (32.0-36.0); MCV 93.7 fL (80-100); MPV 6.3 fL (7.6-11.3); Monocytes % 9.5 % (3.3-12.3); Neutrophils % 46.5 % (41.7-73.7); Nucleated Red Blood Cells % 0.1 % (0-0); Platelets 196 thou/uL (152-406); RBC Red Blood Cell Count 3.67 M/uL (4.33-5.43); Red Cell Distribution Width 18.2 % (12.1-15.2)
[2025-01-16 06:01] LABS: Anion Gap 6.2 mEq/L (5.0-15.0); Potassium 4.2 mEq/L (3.5-5.1)
--- NOTE | 2025-01-16 14:23 | RAD REPORT ---
EXAMINATION: Abdomen Pelvis W Contrast CLINICAL INDICATION: Male, 69 years old.Abd Distension and Pain TECHNIQUE: CT abdomen and pelvis was performed, after the administration of IV contrast, as per [facility] protocol. Axial, sagittal and coronal reconstructions were obtained. One or more of the following dose reduction techniques were used: Automated exposure control, adjustment of the mA and/o r kV according to patient size, and/or iterative reconstruction. Unless otherwise specified, incidental findings do not require dedicated imaging follow-up. [id number]. COMPARISON: 01/09/2025 FINDINGS: LOWER CHEST: Small right effusion and likely underlying atelectasis.No significant pericardial effusi on. Aortic valve and mitral annular calcifications. Lower paraesophageal varices. UPPER GI: No significant abnormality. LIVER: Cirrhosis. Patent portal vein. No focal mass. GALLBLADDER/BILE DUCTS: No biliary ductal dilatation.? PANCREAS: No mass, ductal dilation, or shirley-pancreatic fluid. SPLEEN: Mild splenomegaly. ADRENALS: No adrenal masses. KIDNEYS AND URETERS: No hydronephrosis.No suspicious renal mass.Nonobstructing renal calculi. ABDOMINAL AORTA AND OTHER VESSELS: Moderate atherosclerotic changes without aortic aneurysm. PERITONEUM: Large volume of ascites. LYMPH NODES: Retroperitoneal including iliac chain lymphadenopathy is again identified. ABDOMINAL WALL: Fluid in the right inguinal canal. Body wall edema SMALL BOWEL/COLON: Small bowel has normal course and caliber. No colonic wall thickening or pericolon ic inflammatory changes. URINARY BLADDER: Underdistended but grossly unremarkable. REPRODUCTIVE ORGANS: No pathologic process. MUSCULOSKELETAL: Widespread osseous metastatic disease. Bilateral hip arthroplasties. ADDITIONAL FINDINGS: None. IMPRESSION: Large volume of ascites and small right pleural effusion. The ascites has increased and is probably t he source of the patient's abdominal distention and pain. Retroperitoneal lymphadenopathy and osseous lesions likely representing metastatic disease. Cirrhosis with evidence of portal hypertension.
--- NOTE | 2025-01-16 16:17 | PN ---
Subjective: The patient lying in bed. No new acute event. Chart reviewed. Objective: Vital Signs: Reviewed. Lungs: Basal crackles. Heart: S1, S2. Regular. Abdomen: Soft, nontender. Bowel sounds present. Extremities: No edema. Laboratory Data: Reviewed. Assessment And Plan: Multiple wounds, right foot unstageable, left knee stage III, left trochanter u nstageable, buttock and sacrococcyx stage III. Continue current treatment. Anemia of chronic disease. Moderate protein-calorie malnourishment. Prostate and liver metastases. Prognosis guarded. We will follow the patient as needed. NF/MODL Voice ID: [id number] Report ID: [id number]
--- NOTE | 2025-01-17 03:14 | P.DS ---
Admission Date: 01/09/25 Discharge Date: 01/19/25 Disposition: HOSPICE-HOME Discharge Condition: FAIR Reason for Admission: Patient with metastatic liver/Prostate cancer Brief History of Present Illness: Patient is a 69-year-old gentleman who came to the hospital with metastatic liver and prostate cancer. Adult protective service was actually called and they went and did a welfare check and patient was not in a great living condi tion. Patient's son ended up having her at take patient to the hospital. Patient with a history of prostate cancer that has been untreated as well as metastatic liver cancer. Patient's had family members with cancer treatment and he feels like they do worse with chemotherapy. He did not want to undergo any chemotherapy. He would prefer to go to [facility] under hospice care. Patient was admitted for placement and will also try to get hospice care involved as well. Patient does not want to be resuscitated and we had a long discussion regarding this as well. - Physical Exam General: Alert, In no apparent distress, Cachectic HEENT: Atraumatic, PERRLA, Mucous membr. moist/pink, EOMI, Sclerae nonicteric Neck: Supple, 2+ carotid pulse no bruit, No LAD, Without JVD or thyroid abnormality Respiratory: Clear to auscultation bilaterally, Normal air movement Cardiovascular: Regular rate/rhythm, Normal S1 S2 Gastrointestinal: Normal bowel sounds, No tenderness Musculoskeletal: No clubbing, No swelling, No tenderness Integumentary: Pressure ulcer (Stage II on the sacral region and the buttocks), Other (Multiple abrasions on the arm with skin breakdown and pressure ulcer) Neurological: Normal speech, Normal tone, Sensation intact, Cranial nerves 3-12 intact, Normal affect, Abnormal gait, Abnormal strength Lymphatics: No axilla or inguinal lymphadenopathy Hospital Course: 69-year-old gentleman who came to the hospital with metastatic liver and prostate cancer. Adult protective service was actually called and they went and did a welfare check and patient was not in a great living condition. Patient's son ended up having her at take patient to the hospital. Patient with a history of prostate cancer that has been untreated as well as metastatic liver cancer. Patient's had family members with cancer treatment and he feels like they do worse with chemotherapy. He did not want to undergo any chemotherapy. He would prefer to go to [facility] under hospice care. Patient was admitted for placement and will also try to get hospice care involved as well. Patient does not want to be resuscitated. Plan to discharge to hospice facility per patient's request. Assessment Prostate cancer metastatic to the liver Cachexia Sacral decubitus ulcer Acute cystitis Abrasions on the left arm GOAL: Clear understanding of disease process INSTRUCTIONS: Physician Discharge Instructions: -Follow-up with hospice after discharge -Please call Dr. Aguayo at [phone] if any questions regarding hospital stay -Please call nursing station at [phone] if any nursing or medication questions -Return to the emergency room if symptoms worsen Diet: Comfort feeds Activity: Fall precautions Vital Signs/Physical Exam: Temp Pulse Resp BP Pulse Ox 97.2 F 82 18 121/62 97 01/16/25 20:00 01/16/25 20:00 01/16/25 20:00 01/16/25 20:00 01/16/25 20:00 Laboratory Data at Discharge: WBC 5.70 thou/uL (4.3-10.9) 01/16/25 05:20 Hgb 11.9 g/dL (13.6-17.9) L 01/16/25 05:20 Hct 34.4 % (39.6-49.0) L 01/16/25 05:20 Plt Count 196 thou/uL (152-406) 01/16/25 05:20 PT 12.8 SECONDS (10-13.0) 01/10/25 04:45 INR 1.13 01/10/25 04:45 APTT 25.6 SECONDS (27.2-37.4) L 01/10/25 04:45 Sodium 140 mEq/L (136-145) 01/16/25 05:20 Potassium 4.2 mEq/L (3.5-5.1) 01/16/25 05:20 BUN 23 mg/dL (7-18) H 01/16/25 05:20 Creatinine 0.57 mg/dL (0.70-1.30) L 01/16/25 05:20 Glucose 138 mg/dL (74-106) H 01/16/25 05:20 Total Bilirubin 1.1 mg/dL (0.2-1.0) H 01/10/25 04:45 AST 29 U/L (15-37) 01/10/25 04:45 ALT 18 U/L (16-61) 01/10/25 04:45 Alkaline Phosphatase 252 U/L (45-117) H 01/10/25 04:45 Lipase 34 U/L (13-75) 01/09/25 14:05 Home Medications: NK [No Home Meds] 01/10/25 Physician Discharge Instructions: 69-year-old gentleman who came to the hospital with metastatic liver and prostate cancer. Adult protective service was actually called and they went and did a welfare check and patient was not in a great living condition. Patient's son ended up having her at take patient to the hospital. Patient with a history of prostate cancer that has been untreated as well as metastatic liver cancer. Patient's had family members with cancer treatment and he feels like they do worse with chemotherapy. He did not want to undergo any chemotherapy. He would prefer to go to [facility] under hospice care. Patient was admitted for placement and will also try to get hospice care involved as well. Patient does not want to be resuscitated. Plan to discharge to hospice facility per patient's request. Assessment Prostate cancer metastatic to the liver Cachexia Sacral decubitus ulcer Acute cystitis Abrasions on the left arm GOAL: Clear understanding of disease process INSTRUCTIONS: Physician Discharge Instructions: -Follow-up with hospice after discharge -Please call Dr. Aguayo at [phone] if any questions regarding hospital stay -Please call nursing station at [phone] if any nursing or medication questions -Return to the emergency room if symptoms worsen Diet: Comfort feeds Activity: Fall precautions Diet: Regular Followup: NONE,NONE [Primary Care Provider] - Time spent managing pt's care (in minutes): 45
[2025-01-17 06:15] LABS: Absolute Basophils 0.1 K/uL (0-0.5); Absolute Eosinophils 0.1 K/uL (0-0.5); Absolute Lymphocytes (CBC) 2.1 K/uL (0.7-4.9); Absolute Monocytes 0.4 K/uL (0.1-1.3); Absolute Neutrophil 2.8 K/uL (1.8-8.0); Eosinophils % 2.6 % (0-4.4); Hematocrit 34.6 % (39.6-49.0); Hemoglobin 11.8 g/dL (13.6-17.9); Lymphocytes % 37.9 % (15.3-44.8); MCHC 34.2 g/dL (32.0-36.0); MCV 93.8 fL (80-100); MPV 6.2 fL (7.6-11.3); Monocytes % 6.7 % (3.3-12.3); Neutrophils % 51.8 % (41.7-73.7); Nucleated Red Blood Cells % 0.2 % (0-0); Platelets 170 thou/uL (152-406); RBC Red Blood Cell Count 3.68 M/uL (4.33-5.43)
[2025-01-17 06:18] LABS: Anion Gap 5.2 mEq/L (5.0-15.0); Potassium 4.2 mEq/L (3.5-5.1)
--- NOTE | 2025-01-17 12:48 | PN ---
Subjective: Patient awaiting transfer to [place] for hospice care. Denies any headache, nausea, vomi ting, chest pain, abdominal pain. Objective: Vital Signs: Reviewed. Lungs: Basal crackles. Heart: S1, S2. Regular. Abdomen: Soft. Bowel sounds present. Extremities: Trace edema. Wounds noted. Laboratory Data: Reviewed. Assessment And Plan: Multiple decubitus in a patient with the history of liver mets and prostate can cer. Ascites. Right-sided pleural effusion. Continue antibiotic and supportive care. We will follow the patient as needed. NF/MODL Voice ID: [id number] Report ID: [id number]
--- NOTE | 2025-01-18 00:53 | P.PN ---
Subjective Date of Service: 01/17/25 Chief Complaint: Patient with metastatic liver/Prostate cancer pain controlled with prn analgesia, DC plan with hospice vs pallative care <Monse Reynoso - Last Filed: 01/18/25 00:57> Date of Service: 01/17/25 <Ivan Aguayo - Last Filed: 01/21/25 02:02> Review of Systems 10-point ROS is otherwise unremarkable <Monse Reynoso - Last Filed: 01/18/25 00:57> Physical Examination - Vital Signs Temperature: 98.5 F Blood Pressure: 108/65 Pulse: 101 Respirations: 18 Pulse Ox (%): 93 - Physical Exam General: Alert, In no apparent distress, Oriented x3 HEENT: Atraumatic, Normocephalic Neck: Supple, JVD not distended Respiratory: Normal air movement, Diminished Cardiovascular: Regular rate/rhythm, Edema Capillary refill: <2 Seconds Gastrointestinal: Splenomegaly Musculoskeletal: Swelling Integumentary: Skin breakdown, Other (B) hip, sacral ulcer, lower extr venous stasis ulcers) Neurological: Normal speech, Normal strength at 5/5 x4 extr <EdgardoMonse - Last Filed: 01/18/25 00:57> Assessment And Plan - Plan Assessment 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 -Patient declines further treatment - Hospice care with SNF/[facility] UTI -ABX per ID Cachectic - Encourage PO intake - Continue Ensure Enlive Stage II sacral decubitus ulcers and buttocks wound Sacral coccyx stage III Right big toe unstageable Right hip deep tissue injury Left hip unstageable wound - Wound care consulted and following - Right big toe unstageable wound recommend Betadine - Right hip deep tissue injury recommend Betadine and foam - Left hip unstageable wound recommend Betadine and foam - Sacral coccyx stage III recommend barrier cream and offloading and low air loss mattress - Infectious disease consulted, cultures polymicrobial including MRSA, adjusted antibiotics by ID on 01/13. Discharge Plan: Other (hospice vs pallative care) - Code Status/Comfort Care Comfort Measures: Palliative Care Critical Care: No Time Spent Managing PTS Care (In Minutes): 35 <Monse Reynoso - Last Filed: 01/18/25 00:57> - Current Problems (Diagnosis) (1) Prostate cancer metastatic to liver Current Visit: Yes Status: Acute (2) Cachectic Current Visit: Yes Status: Acute (3) Sacral decubitus ulcer Current Visit: Yes Status: Acute <Ivan Aguayo - Last Filed: 01/21/25 02:02> Date of Service: 01/17/25 Patient was seen and examined. Events of the last 24 hours have been noted. Spoke with with TIANA regarding patient's clinical picture after evaluating and examining the patient independently. I performed a substantial part of the MDM during this patient's care today. I personally made or approved the documented management plan and acknowledge its risk of complications. I agree with the findings and documentation provided in the TIANA's notes. <Ivan Aguayo - Last Filed: 01/21/25 02:02>
[2025-01-18 07:53] LABS: Anion Gap 6.6 mEq/L (5.0-15.0); Potassium 4.6 mEq/L (3.5-5.1)
[2025-01-18 08:14] LABS: Absolute Eosinophils 0.3 K/uL (0-0.5); Absolute Lymphocytes (CBC) 2.1 K/uL (0.7-4.9); Absolute Monocytes 0.6 K/uL (0.1-1.3); Absolute Neutrophil 3.2 K/uL (1.8-8.0); Basophils % 0.8 % (0-1.3); Eosinophils % 4.4 % (0-4.4); Hematocrit 35.7 % (39.6-49.0); Hemoglobin 12.2 g/dL (13.6-17.9); Lymphocytes % 33.9 % (15.3-44.8); MCH 31.4 pg (27.0-35.0); MCHC 34.1 g/dL (32.0-36.0); MPV 6.5 fL (7.6-11.3); Neutrophils % 50.9 % (41.7-73.7); Nucleated Red Blood Cells % 0.2 % (0-0); Platelets 181 thou/uL (152-406); RBC Red Blood Cell Count 3.88 M/uL (4.33-5.43); Red Cell Distribution Width 17.7 % (12.1-15.2)
[2025-01-18 09:38] LABS: Atypical Lymphocytes 1 %; Differential Total Cells Count 100; Eosinophils 4 % (0-3); Lymphocytes 41 % (15-42); Monocytes 5 % (0-10); Segmented Neutrophils 48 % (40-80)
[2025-01-18 09:39] LABS: Blood Morphology Comment NOT SEEN (NOT SEEN); Platelet Estimate ADEQ
--- NOTE | 2025-01-18 11:06 | P.PN ---
Date of Service: 01/18/25 Subjective: Patient awaiting transfer to [place] for hospice care. Denies any headache, nausea, vomiting, chest pain, abdominal pain. Objective: Vital Signs: Temp Pulse Resp BP Pulse Ox 98.3 F 99 H 16 130/70 94 01/18/25 08:00 01/18/25 08:00 01/18/25 08:00 01/18/25 08:00 01/18/25 08:00 Lungs: Basal crackles. Heart: S1, S2. Regular. Abdomen: Soft. Bowel sounds present. Extremities: Trace edema. Wounds noted. Neuro: ao x3 Laboratory Data:wbc 6.2, Hgb 12.2, BUN 20, Creatinine 0.61 01/09/25 wound left hip: Enterobacter Cloacae, Proteus Penneri, Staph Aureus 01/09/25 wound sacral: MRSA, K. Pneumoniae, Proteus Penneri Assessment And Plan: Multiple decubitus in a patient with history of liver mets and prostate cancer. Ascites. Right-sided pleural effusion. Continue antibiotic Zosyn and doxycyline and supportive care. We will follow the patient as needed. case round in agreement with Dr Mixon
--- NOTE | 2025-01-19 02:00 | P.PN ---
Date of Service: 01/18/25 Subjective Chief Complaint: Patient with metastatic liver/Prostate cancer pain controlled with prn analgesia, DC plan with hospice vs pallative care Review of Systems 10-point ROS is otherwise unremarkable Physical Examination - Vital Signs reviewed - Physical Exam General: Alert Oriented x3, afebrile Neck: Supple, Respiratory: Normal air movement, Diminished Cardiovascular: Regular rate/rhythm, Edema Capillary refill: <2 Seconds Gastrointestinal: Splenomegaly, nontender Musculoskeletal: Swelling Integumentary: Skin breakdown, Other (B) hip, sacral ulcer, lower extr venous stasis ulcers) Neurological: Normal speech, Normal strength at 5/5 x4 extr Assessment And Plan - Plan Assessment 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 -Patient declines further treatment - Hospice care with SNF/[place] ID following UTI -ABX per ID Cachectic - Encourage PO intake - Continue Ensure Enlive Stage II sacral decubitus ulcers and buttocks wound Sacral coccyx stage III Right big toe unstageable Right hip deep tissue injury Left hip unstageable wound - Wound care consulted and following - Right big toe unstageable wound recommend Betadine - Right hip deep tissue injury recommend Betadine and foam - Left hip unstageable wound recommend Betadine and foam - Sacral coccyx stage III recommend barrier cream and offloading and low air loss mattress - Infectious disease consulted, cultures polymicrobial including MRSA, adjusted antibiotics by ID on 01/13. Discharge Plan: Other (hospice vs pallative care) - Code Status/Comfort Care Comfort Measures: Palliative Care Critical Care: No Time Spent Managing PTS Care (In Minutes): 25 <Monse Reynoso - Last Filed: 01/19/25 02:01> Patient was seen and examined. Events of the last 24 hours have been noted. Spoke with with TIANA regarding patient's clinical picture after evaluating and examining the patient independently. I performed a substantial part of the MDM during this patient's care today. I personally made or approved the documented management plan and acknowledge its risk of complications. I agree with the findings and documentation provided in the TIANA's notes. <Ivan Aguayo - Last Filed: 01/21/25 02:02>
--- NOTE | 2025-01-19 06:21 | P.PN ---
Date of Service: 01/19/25 Subjective Chief Complaint: Patient with metastatic liver/Prostate cancer DC plan with hospice vs pallative care pain controlled, no acute disress noted Review of Systems 10-point ROS is otherwise unremarkable Physical Examination - Vital Signs reviewed - Physical Exam General: Alert Oriented x3, Neck: Supple, Respiratory: Normal air movement, unlabored Cardiovascular: Regular rate/rhythm, Edema Capillary refill: <2 Seconds Gastrointestinal: Splenomegaly, Musculoskeletal: Swelling Integumentary: Skin breakdown, Other (B) hip, sacral ulcer, lower extr venous stasis ulcers) Neurological: Normal speech, Normal strength at 5/5 x4 extr Assessment And Plan - Plan Assessment 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 -Patient declines further treatment - Hospice care with SNF/[place] ID following UTI -ABX per ID Cachectic - Encourage PO intake - Continue Ensure Enlive Stage II sacral decubitus ulcers and buttocks wound Sacral coccyx stage III Right big toe unstageable Right hip deep tissue injury Left hip unstageable wound - Wound care consulted and following - Right big toe unstageable wound recommend Betadine - Right hip deep tissue injury recommend Betadine and foam - Left hip unstageable wound recommend Betadine and foam - Sacral coccyx stage III recommend barrier cream and offloading and low air loss mattress - Infectious disease consulted, cultures polymicrobial including MRSA, adjusted antibiotics by ID on 01/13. Discharge Plan: Other (hospice vs pallative care) - Code Status/Comfort Care Comfort Measures: Palliative Care Critical Care: No Time Spent Managing PTS Care (In Minutes): 25 <Monse Reynoso - Last Filed: 01/20/25 11:12> Patient was seen and examined. Events of the last 24 hours have been noted. Spoke with with TIANA regarding patient's clinical picture after evaluating and examining the patient independently. I performed a substantial part of the MDM during this patient's care today. I personally made or approved the documented management plan and acknowledge its risk of complications. I agree with the findings and documentation provided in the TIANA's notes. <Ivan Aguayo - Last Filed: 01/21/25 02:03>
[2025-01-20 09:11] LABS: Absolute Basophils 0.1 K/uL (0-0.5); Absolute Eosinophils 0.2 K/uL (0-0.5); Absolute Monocytes 0.6 K/uL (0.1-1.3); Absolute Neutrophil 3.3 K/uL (1.8-8.0); Basophils % 0.9 % (0-1.3); Eosinophils % 3.9 % (0-4.4); Hematocrit 35.6 % (39.6-49.0); Hemoglobin 12.5 g/dL (13.6-17.9); Lymphocytes % 32.4 % (15.3-44.8); MCH 32.2 pg (27.0-35.0); MCHC 35.1 g/dL (32.0-36.0); MCV 91.8 fL (80-100); MPV 6.3 fL (7.6-11.3); Neutrophils % 53.8 % (41.7-73.7); Nucleated Red Blood Cells % 0.1 % (0-0); Platelets 192 thou/uL (152-406); RBC Red Blood Cell Count 3.88 M/uL (4.33-5.43)
[2025-01-20 09:12] LABS: Anion Gap 6.3 mEq/L (5.0-15.0); Potassium 4.3 mEq/L (3.5-5.1)
--- NOTE | 2025-01-20 10:46 | RAD REPORT ---
PROCEDURE: ULTRASOUND GUIDED PARACENTESIS CLINICAL INDICATION: ascites PROCEDURE DETAILS: Consent: Informed consent for the procedure including risks, benefits and alternatives was obtained a nd time-out was performed prior to the procedure. Preparation: The site was prepared and draped using maximal sterile barrier technique including cutan eous antisepsis. Procedure: Initial limited abdominal ultrasound was performed and a large amount of ascites was seen. A safe window for paracentesis was identified with ultrasound to chelsey a suitable access site. Local anesthesia was administered. The peritoneal cavity was accessed, and fluid return confirmed pos ition. A 8F pigtail drainage catheter was placed and ascites was drained. The catheter was removed, and a sterile bandage was applied. Following the procedure, albumin was administered per protocol. IMPRESSION: Ultrasound guided paracentesis, yielding 6.7 mL of cloudy yellow fluid.
--- NOTE | 2025-01-20 16:02 | P.PN ---
Date of Service: 01/20/25 Subjective: Patient awaiting transfer to [place] for hospice care. Denies any headache, nausea, vomiting, chest pain, abdominal pain. Objective: Vital Signs: Temp Pulse Resp BP Pulse Ox 98.2 F 96 H 16 114/65 95 01/20/25 12:00 01/20/25 12:00 01/20/25 12:00 01/20/25 12:00 01/20/25 12:00 Lungs: CTA Heart: S1, S2. Regular. Abdomen: Soft. Bowel sounds present. Extremities: Trace edema. Wounds noted. Neuro: ao x3 Laboratory Data:wbc 6.2, Hgb 12.5, BUN 23, Creatinine 0.66 01/09/25 wound left hip: Enterobacter Cloacae, Proteus Penneri, Staph Aureus 01/09/25 wound sacral: MRSA, K. Pneumoniae, Proteus Penneri Assessment And Plan: Multiple decubitus in a patient with history of liver mets and prostate cancer. Ascites. Right-sided pleural effusion. Continue antibiotic Zosyn and doxycyline and supportive care. We will follow the patient as needed. case round in agreement with Dr Mixon
--- NOTE | 2025-01-21 02:07 | P.PN ---
Date of Service: 01/20/25 Subjective Patient unable the get any informations help us get him set up for discharge planning and hospice. We did remove 7 L of fluid from patient's abdomen. Patient appears to be doing poorly and would benefit from hospice care at this time. Family is not wanting any further treatment and they wanted to admit him and help him stay as comfortable as possible. Physical Examination - Vital Signs reviewed - Physical Exam General: Alert Oriented x3, Respiratory: Normal air movement, unlabored Cardiovascular: Regular rate/rhythm, Edema Gastrointestinal: Splenomegaly, Musculoskeletal: Swelling Integumentary: Skin breakdown, Other (B) hip, sacral ulcer, lower extr venous stasis ulcers Neurological: Normal speech, Normal strength at 5/5 x4 extr Assessment And Plan - Plan 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 -Patient declines further treatment - Hospice care with SNF/[place] ID following UTI -ABX per ID Cachectic - Encourage PO intake - Continue Ensure Enlive Stage II sacral decubitus ulcers and buttocks wound Sacral coccyx stage III Right big toe unstageable Right hip deep tissue injury Left hip unstageable wound - Wound care consulted and following - Right big toe unstageable wound recommend Betadine - Right hip deep tissue injury recommend Betadine and foam - Left hip unstageable wound recommend Betadine and foam - Sacral coccyx stage III recommend barrier cream and offloading and low air loss mattress - Infectious disease consulted, cultures polymicrobial including MRSA, adjusted antibiotics by ID on 01/13. Discharge Plan: Other (hospice vs pallative care) - Code Status/Comfort Care Comfort Measures: Palliative Care Critical Care: No Time Spent Managing PTS Care (In Minutes): 25 <Monse Reynoso - Last Filed: 01/20/25 11:12> Patient was seen and examined. Events of the last 24 hours have been noted. Spoke with with TIANA regarding patient's clinical picture after evaluating and examining the patient independently. I performed a substantial part of the MDM during this patient's care today. I personally made or approved the documented management plan and acknowledge its risk of complications. I agree with the findings and documentation provided in the TIANA's notes. <Ivan Aguayo - Last Filed: 01/21/25 02:03>
[2025-01-21] MEDS: MORPHINE 2 MG/ML SYR IV PRN ×2 (06:02→12:24)
[2025-01-21] MEDS: SMZ./TMP. 800/160 MG TABLET PO SCH (09:07)
--- NOTE | 2025-01-21 11:18 | P.PN ---
Subjective Date of Service: 01/21/25 Chief Complaint: Patient with metastatic liver/Prostate cancer Subjective: No chest pain or shortness of breath. No nausea or vomiting. No abdominal pain. No obvious bleeding. Looks comfortable in the bed. Objective: General appearance: Alert and comfortable CVS: Normal S1 and S2 Lungs: Clear to auscultation bilaterally Abdomen: Soft, bowel sounds present, no tenderness, seems fluid building up again ext: mild edema b/l legs with venous stasis changes Physical Examination - Vital Signs Temperature: 97.8 F Blood Pressure: 113/61 Pulse: 97 Respirations: 16 Pulse Ox (%): 93 Assessment And Plan - Plan 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 -Patient declines further treatment - Hospice care with SNF/[place] UTI -ABX per ID Cachectic - Encourage PO intake - Continue Ensure Enlive Stage II sacral decubitus ulcers and buttocks wound Sacral coccyx stage III Right big toe unstageable Right hip deep tissue injury Left hip unstageable wound - Wound care consulted and following - Right big toe unstageable wound recommend Betadine - Right hip deep tissue injury recommend Betadine and foam - Left hip unstageable wound recommend Betadine and foam - Sacral coccyx stage III recommend barrier cream and offloading and low air loss mattress - Infectious disease consulted, cultures polymicrobial including MRSA, adjusted antibiotics by ID on 01/13. Cirrhosis of liver, varices and ascites: Status post paracentesis, monitor volume status closely, start him on diuretics. 69-year-old patient with metastatic prostate cancer, he is interested in hospice. Cirrhosis, varices and splenomegaly on imaging. Retroperitoneal lymphadenopathy and bone lesions on imagiing. UTI, continue antibiotics, plan to discharge to facility with hospice when bed available. Waiting for placement.
[2025-01-21] MEDS: SPIRONOLACTONE 25 MG TABLET PO SCH (12:15)
[2025-01-21] MEDS: FUROSEMIDE 40 MG TABLET PO SCH (12:16)
[2025-01-22 09:22] LABS: Absolute Basophils 0.1 K/uL (0-0.5); Absolute Eosinophils 0.2 K/uL (0-0.5); Absolute Lymphocytes (CBC) 2.2 K/uL (0.7-4.9); Absolute Monocytes 0.5 K/uL (0.1-1.3); Absolute Neutrophil 3.4 K/uL (1.8-8.0); Basophils % 0.9 % (0-1.3); Eosinophils % 3.9 % (0-4.4); Hematocrit 37.4 % (39.6-49.0); Hemoglobin 12.9 g/dL (13.6-17.9); Lymphocytes % 34.1 % (15.3-44.8); MCH 32.1 pg (27.0-35.0); MCHC 34.6 g/dL (32.0-36.0); MCV 92.8 fL (80-100); MPV 6.8 fL (7.6-11.3); Monocytes % 8.1 % (3.3-12.3); Nucleated Red Blood Cells % 0.3 % (0-0); Platelets 187 thou/uL (152-406); RBC Red Blood Cell Count 4.03 M/uL (4.33-5.43); Red Cell Distribution Width 18.2 % (12.1-15.2)
[2025-01-22 10:07] LABS: Anion Gap 10.7 mEq/L (5.0-15.0); Potassium 4.7 mEq/L (3.5-5.1)
[2025-01-22 10:08] LABS: Blood Morphology Comment NOT SEEN (NOT SEEN); Platelet Estimate ADEQ; White Blood Cell Scan OK (OK)
[2025-01-22 10:09] LABS: Platelets, Giant FEW
--- NOTE | 2025-01-22 11:08 | P.PN ---
Subjective Date of Service: 01/22/25 Chief Complaint: Patient with metastatic liver/Prostate cancer Subjective: No chest pain or shortness of breath. No nausea or vomiting. No abdominal pain but feesl some dicomfort. No obvious bleeding. Looks comfortable in the bed. Objective: General appearance: Alert and comfortable CVS: Normal S1 and S2 Lungs: Clear to auscultation bilaterally Abdomen: Soft, bowel sounds present, no tenderness, seems fluid building up again ext: mild edema b/l legs with venous stasis changes Physical Examination - Vital Signs Temperature: 98.0 F Blood Pressure: 116/64 Pulse: 95 Respirations: 16 Pulse Ox (%): 93 Assessment And Plan - Plan 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 -Patient declines further treatment - Hospice care with SNF/[place] UTI -ABX per ID Cachectic - Encourage PO intake - Continue Ensure Enlive Stage II sacral decubitus ulcers and buttocks wound Sacral coccyx stage III Right big toe unstageable Right hip deep tissue injury Left hip unstageable wound - Wound care consulted and following - Right big toe unstageable wound recommend Betadine - Right hip deep tissue injury recommend Betadine and foam - Left hip unstageable wound recommend Betadine and foam - Sacral coccyx stage III recommend barrier cream and offloading and low air loss mattress - Infectious disease consulted, cultures polymicrobial including MRSA, on oral ABX now #Cirrhosis of liver, varices and ascites: Status post paracentesis, monitor volume status closely, started him on diuretics on 01/21, seemf fluid accumulating again, will repeat ultrasound. 69-year-old patient with metastatic prostate cancer, he is interested in hospice. Cirrhosis, varices and splenomegaly on imaging. Retroperitoneal lymphadenopathy and bone lesions on imagiing. UTI, continue antibiotics, plan to discharge to facility with hospice when bed available. Waiting for placement.
--- NOTE | 2025-01-22 17:25 | RAD REPORT ---
EXAMINATION: US Abdomen Exam Limited CLINICAL HISTORY: eval for ascites COMPARISON: None. TECHNIQUE: Limited upper abdominal grayscale and color flow sonographic images. FINDINGS: Liver: Visualized portions of the liver demonstrate coarse echotexture and nodular contour suggesting cirrhosis. Fluid: Mild to moderate residual ascites in all four quadrants. IMPRESSION: Mild to moderate residual ascites in all four quadrants.
--- NOTE | 2025-01-23 12:17 | P.PN ---
Subjective Date of Service: 01/23/25 Chief Complaint: Patient with metastatic liver/Prostate cancer Subjective: No chest pain or shortness of breath. No nausea or vomiting. No abdominal pain but feesl some dicomfort. No obvious bleeding. Looks comfortable in the bed. Objective: General appearance: Alert and comfortable CVS: Normal S1 and S2 Lungs: Clear to auscultation bilaterally Abdomen: Soft, bowel sounds present, no tenderness, seems fluid building up again, abdomen more distended today ext: mild edema b/l legs with venous stasis changes Physical Examination - Vital Signs Temperature: 98.1 F Blood Pressure: 118/63 Pulse: 96 Respirations: 20 Pulse Ox (%): 93 Assessment And Plan - Plan 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 -Patient declines further treatment - Hospice care with SNF/[facility] UTI -ABX per ID Cachectic - Encourage PO intake - Continue Ensure Enlive Stage II sacral decubitus ulcers and buttocks wound Sacral coccyx stage III Right big toe unstageable Right hip deep tissue injury Left hip unstageable wound - Wound care consulted and following - Right big toe unstageable wound recommend Betadine - Right hip deep tissue injury recommend Betadine and foam - Left hip unstageable wound recommend Betadine and foam - Sacral coccyx stage III recommend barrier cream and offloading and low air loss mattress - Infectious disease consulted, cultures polymicrobial including MRSA, on oral ABX now #Cirrhosis of liver, varices and ascites: Status post paracentesis last week, monitor volume status closely, started him on diuretics on 01/21, seemf fluid accumulating again, repeat ultrasound 01/22 showed moderate ascites, will consult IR for paracentesis today. 69-year-old patient with metastatic prostate cancer, he is interested in hospice. Cirrhosis, varices and splenomegaly on imaging. Retroperitoneal lymphadenopathy and bone lesions on imagiing. UTI, continue antibiotics, plan to discharge to facility with hospice when bed available. Waiting for placemen t. Plan for repeat paracentesis today.
--- NOTE | 2025-01-23 16:02 | P.PN ---
Date of Service: 01/23/25 Subjective: Patient awaiting transfer to [facility] for hospice care. Denies any headache, nausea, vomiting, chest pain, abdominal pain. Objective: Vital Signs: Temp Pulse Resp BP Pulse Ox 98.1 F 96 H 20 118/63 93 01/23/25 12:17 01/23/25 12:17 01/23/25 12:17 01/23/25 12:17 01/23/25 12:17 Lungs: CTA Heart: S1, S2. Regular. Abdomen: Soft. Bowel sounds present. Extremities: Trace edema. Wounds noted. Neuro: ao x3 Laboratory Data:01/22/25 wbc 6.2, Hgb 12.5, BUN 23, Creatinine 0.66 labs 01/24/25 still pending 01/09/25 wound left hip: Enterobacter Cloacae, Proteus Penneri, Staph Aureus 01/09/25 wound sacral: MRSA, K. Pneumoniae, Proteus Penneri Assessment And Plan: Multiple decubitus in a patient with history of liver mets and prostate cancer. Ascites. Right-sided pleural effusion. Continue antibiotic bactrim po for 14 days and supportive care. We will follow the patient as needed. case round in agreement with Dr Mixon
[2025-01-24 07:45] LABS: Absolute Eosinophils 0.2 K/uL (0-0.5); Absolute Lymphocytes (CBC) 1.8 K/uL (0.7-4.9); Absolute Monocytes 0.5 K/uL (0.1-1.3); Absolute Neutrophil 2.6 K/uL (1.8-8.0); Basophils % 0.7 % (0-1.3); Eosinophils % 4.5 % (0-4.4); Hemoglobin 12.9 g/dL (13.6-17.9); Lymphocytes % 35.3 % (15.3-44.8); MCH 31.4 pg (27.0-35.0); MCV 92.4 fL (80-100); MPV 6.2 fL (7.6-11.3); Monocytes % 9.9 % (3.3-12.3); Neutrophils % 49.6 % (41.7-73.7); Nucleated Red Blood Cells % 0.1 % (0-0); Platelets 189 thou/uL (152-406); RBC Red Blood Cell Count 4.12 M/uL (4.33-5.43); Red Cell Distribution Width 17.8 % (12.1-15.2)
[2025-01-24 07:49] LABS: PT Prothrombin Time 12.3 SECONDS (10-13.0); PTT, Activated Partial Thromb 32.4 SECONDS (27.2-37.4); Protime INR 1.08
[2025-01-24 07:55] LABS: Anion Gap 5.5 mEq/L (5.0-15.0); Potassium 4.5 mEq/L (3.5-5.1)
--- NOTE | 2025-01-24 13:48 | PN ---
Subjective: The patient lying in bed. No new acute event. Chart reviewed. Objective: Vital Signs: Reviewed. Lungs: Basal crackles. Heart: S1, S2. Regular. Abdomen: Distended. Bowel sounds present. Extremities: Trace edema. Laboratory Data: WBC 5.2, hemoglobin 12.9, platelets 189. Chemistry shows BUN of 28, creatinine 0.7 . Patient is pending paracentesis and thoracentesis for ascites and pleural fluid. Assessment And Plan: Multiple decubitus ulcer with history of liver mets and prostate cancer. Right-sided pleural effusion, going for thoracentesis. Ascites, getting paracentesis done. Monitor signs of infection with WBC and fever trends. NF/MODL Voice ID: [id number] Report ID: [id number]
--- NOTE | 2025-01-24 14:35 | P.PN ---
Subjective Date of Service: 01/24/25 Chief Complaint: Patient with metastatic liver/Prostate cancer Patient upset regarding n.p.o. 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 -Patient declines further treatment - Hospice care with SNF/[facility] UTI -ABX per ID Cachectic - Encourage PO intake - Continue Ensure Enlive Stage II sacral decubitus ulcers and buttocks wound Sacral coccyx stage III Right big toe unstageable Right hip deep tissue injury Left hip unstageable wound - Wound care consulted and following - Right big toe unstageable wound recommend Betadine - Right hip deep tissue injury recommend Betadine and foam - Left hip unstageable wound recommend Betadine and foam - Sacral coccyx stage III recommend barrier cream and offloading and low air loss mattress - Infectious disease consulted, cultures polymicrobial including MRSA, on oral ABX now #Cirrhosis of liver, varices and ascites: Status post paracentesis last week, monitor volume status closely, started him on diuretics on 01/21, seemf fluid accumulating again, repeat ultrasound 01/22 showed moderate ascites, will consult IR for paracentesis today. 69-year-old patient with metastatic prostate cancer, he is interested in hospice. Cirrhosis, varices and splenomegaly on imaging. Retroperitoneal lymphadenopathy and bone lesions on imagiing. UTI, continue antibiotics, plan to discharge to facility with hospice when bed available. Waiting for placement. Plan for repeat paracentesis today.
--- NOTE | 2025-01-24 15:34 | RAD REPORT ---
PROCEDURE: ULTRASOUND GUIDED PARACENTESIS Procedural Provider: Riccardo Boudreaux M.D. Pre-procedure diagnosis: Ascites Post-procedure diagnosis: Same as above. CLINICAL INDICATION: Male, 69 years old. ascites COMPLICATIONS: No immediate complications. IMPRESSION: Ultrasound guided paracentesis, yielding 1600 mL of cloudy fluid. PLAN: Aspirated fluid was not sent for analysis. PROCEDURE DETAILS: Consent: Informed consent for the procedure including risks, benefits and alternatives was obtained a nd time-out was performed prior to the procedure. Preparation: The site was prepared and draped using maximal sterile barrier technique including cutan eous antisepsis. Sedation: None Procedure: Initial limited abdominal ultrasound was performed and a large amount of ascites was seen. A safe window for paracentesis was identified with ultrasound to chelsey a suitable access site. Local anesthesia was administered. The peritoneal cavity was accessed, and fluid return confirmed pos ition. A catheter was placed and ascites was drained. The catheter was removed, and a sterile bandage was applied. [id number]. Estimated blood loss: Less than 10 mL.
[2025-01-25 07:26] LABS: Absolute Basophils 0.1 K/uL (0-0.5); Absolute Eosinophils 0.2 K/uL (0-0.5); Absolute Lymphocytes (CBC) 1.7 K/uL (0.7-4.9); Absolute Monocytes 0.5 K/uL (0.1-1.3); Absolute Neutrophil 2.9 K/uL (1.8-8.0); Eosinophils % 3.2 % (0-4.4); Hematocrit 36.5 % (39.6-49.0); Hemoglobin 12.6 g/dL (13.6-17.9); Lymphocytes % 32.8 % (15.3-44.8); MCH 31.8 pg (27.0-35.0); MCHC 34.5 g/dL (32.0-36.0); MCV 92.4 fL (80-100); MPV 6.7 fL (7.6-11.3); Monocytes % 9.1 % (3.3-12.3); Neutrophils % 53.9 % (41.7-73.7); Nucleated Red Blood Cells % 0.2 % (0-0); Platelets 181 thou/uL (152-406); RBC Red Blood Cell Count 3.95 M/uL (4.33-5.43); Red Cell Distribution Width 18.1 % (12.1-15.2)
[2025-01-25 09:14] LABS: Anion Gap 9.6 mEq/L (5.0-15.0); Potassium 4.6 mEq/L (3.5-5.1)
--- NOTE | 2025-01-25 13:03 | P.PN ---
Subjective Date of Service: 01/25/25 Chief Complaint: Patient with metastatic liver/Prostate cancer No acute events. Patient eating. 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 -Patient declines further treatment - Hospice care with SNF/[place] UTI -ABX per ID Cachectic - Encourage PO intake - Continue Ensure Enlive Stage II sacral decubitus ulcers and buttocks wound Sacral coccyx stage III Right big toe unstageable Right hip deep tissue injury Left hip unstageable wound - Wound care consulted and following - Right big toe unstageable wound recommend Betadine - Right hip deep tissue injury recommend Betadine and foam - Left hip unstageable wound recommend Betadine and foam - Sacral coccyx stage III recommend barrier cream and offloading and low air loss mattress - Infectious disease consulted, cultures polymicrobial including MRSA, on oral ABX now #Cirrhosis of liver, varices and ascites: Status post paracentesis last week, monitor volume status closely, started him on diuretics on 01/21, seemf fluid accumulating again, repeat ultrasound 01/22 showed moderate ascites, will consult IR for paracentesis today. 69-year-old patient with metastatic prostate cancer, he is interested in hospice. Cirrhosis, varices and splenomegaly on imaging. Retroperitoneal lymphadenopathy and bone lesions on imagiing. UTI, continue antibiotics, plan to discharge to facility with hospice when bed available. Waiting for neda cement. Plan for repeat paracentesis today.
[2025-01-26 07:26] LABS: Absolute Eosinophils 0.2 K/uL (0-0.5); Absolute Monocytes 0.4 K/uL (0.1-1.3); Absolute Neutrophil 2.5 K/uL (1.8-8.0); Basophils % 0.8 % (0-1.3); Eosinophils % 4.3 % (0-4.4); Hematocrit 35.8 % (39.6-49.0); Hemoglobin 12.4 g/dL (13.6-17.9); Lymphocytes % 38.1 % (15.3-44.8); MCHC 34.8 g/dL (32.0-36.0); MPV 6.6 fL (7.6-11.3); Monocytes % 8.5 % (3.3-12.3); Neutrophils % 48.3 % (41.7-73.7); Nucleated Red Blood Cells % 0.1 % (0-0); Platelets 192 thou/uL (152-406); RBC Red Blood Cell Count 3.89 M/uL (4.33-5.43); Red Cell Distribution Width 17.7 % (12.1-15.2)
[2025-01-26 07:42] LABS: Anion Gap 6.3 mEq/L (5.0-15.0); Potassium 4.3 mEq/L (3.5-5.1)
[2025-01-26 09:40] LABS: Differential Total Cells Count 100; Segmented Neutrophils 49 % (40-80)
[2025-01-26 09:41] LABS: Atypical Lymphocytes 7 %; Band Neutrophils 1 % (0-1); Blood Morphology Comment NOT SEEN (NOT SEEN); Eosinophils 2 % (0-3); Lymphocytes 32 % (15-42); Monocytes 8 % (0-10); Platelet Estimate ADEQ; Smudge Cells PRESENT
--- NOTE | 2025-01-26 15:35 | P.PN ---
Subjective Date of Service: 01/26/25 Chief Complaint: Patient with metastatic liver/Prostate cancer No acute events. Patient eating. 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 -Patient declines further treatment - Hospice care with SNF/[facility] UTI -ABX per ID Cachectic - Encourage PO intake - Continue Ensure Enlive Stage II sacral decubitus ulcers and buttocks wound Sacral coccyx stage III Right big toe unstageable Right hip deep tissue injury Left hip unstageable wound - Wound care consulted and following - Right big toe unstageable wound recommend Betadine - Right hip deep tissue injury recommend Betadine and foam - Left hip unstageable wound recommend Betadine and foam - Sacral coccyx stage III recommend barrier cream and offloading and low air loss mattress - Infectious disease consulted, cultures polymicrobial including MRSA, on oral ABX now #Cirrhosis of liver, varices and ascites: Status post paracentesis last week, monitor volume status closely, started him on diuretics on 01/21, seemf fluid accumulating again, repeat ultrasound 01/22 showed moderate ascites. s/p paracentesis on 01/24/2025 with 1600 ml removed 69-year-old patient with metastatic prostate cancer, he is interested in hospice. Cirrhosis, varices and splenomegaly on imaging. Retroperitoneal lymphadenopathy and bone lesions on imagiing. UTI, continue antibiotics, plan to discharge to facility with hospice when bed available. Waiting for placement. s/p paracentesis on 01/24/2025with 1600 ml removed
--- NOTE | 2025-01-26 23:55 | PN ---
Date of Progress Note: 01/26/2025 Subjective: The patient is lying in bed, complains of abdominal distention and discomfort. Denies a ny other problems. Objective: Vital Signs: Temperature 98, pulse 93, respiration 18, blood pressure 116/59. Lungs: Basal crackles. Heart: S1, S2. Regular. ABDOMEN: Distended. Bowel sounds present. Extremities: 1+ edema. Laboratory Data: Shows WBC 5.2, hemoglobin 12.4, platelets are 192. BUN 26, creatinine 0.7. Assessment And Plan: 1. Metastatic prostate cancer, metastasis to liver. Continues to spike fevers, currently on IV antib iotics empirically. Concern regarding drug or tumor fever as patient cultures are continued to be ne gative. 2. Sacral coccyx stage III wound. 3. Right big toe unstageable wound. 4. Left hip unstageable wound. Continue wound care. We will follow the patient as needed. NF/MODL Voice ID: [id number] Report ID: [id number]
[2025-01-27] MEDS: MORPHINE 2 MG/ML SYR IV PRN (08:22)
--- NOTE | 2025-01-27 14:58 | P.PN ---
Subjective Date of Service: 01/27/25 Chief Complaint: Patient with metastatic liver/Prostate cancer No acute events. Patient eating. 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 -Patient declines further treatment - Hospice care with SNF/[place] UTI -ABX per ID Cachectic - Encourage PO intake - Continue Ensure Enlive Stage II sacral decubitus ulcers and buttocks wound Sacral coccyx stage III Right big toe unstageable Right hip deep tissue injury Left hip unstageable wound - Wound care consulted and following - Right big toe unstageable wound recommend Betadine - Right hip deep tissue injury recommend Betadine and foam - Left hip unstageable wound recommend Betadine and foam - Sacral coccyx stage III recommend barrier cream and offloading and low air loss mattress - Infectious disease consulted, cultures polymicrobial including MRSA, on oral ABX now #Cirrhosis of liver, varices and ascites: Status post paracentesis last week, monitor volume status closely, started him on diuretics on 01/21, seemf fluid accumulating again, repeat ultrasound 01/22 showed moderate ascites. s/p paracentesis on 01/24/2025 with 1600 ml removed 69-year-old patient with metastatic prostate cancer, he is interested in hospice. Cirrhosis, varices and splenomegaly on imaging. Retroperitoneal lymphadenopathy and bone lesions on imagiing. UTI, continue antibiotics, plan to discharge to facility with hospice when bed available. Waiting for placement. s/p paracentesis on 01/24/2025with 1600 ml removed
--- NOTE | 2025-01-27 18:29 | P.PN ---
Date of Service: 01/27/25 Subjective: Patient awaiting transfer to [facility] for hospice care. Denies any headache, nausea, vomiting, chest pain, abdominal pain. Objective: Vital Signs: Temp Pulse Resp BP Pulse Ox 98.0 F 88 18 123/72 93 01/27/25 16:00 01/27/25 16:00 01/27/25 16:00 01/27/25 16:00 01/27/25 16:00 Lungs: CTA Heart: S1, S2. Regular. Abdomen: Soft. rounded. mild discomfort on palpation to lower abdomen. Bowel sounds present. Extremities: Trace edema. multiple decubitus wounds. Neuro: ao x3 Laboratory Data: wbc 5.2, Hgb 12.4, BUN 26, Creatinine 0.78 01/09/25 wound left hip: Enterobacter Cloacae, Proteus Penneri, Staph Aureus 01/09/25 wound sacral: MRSA, K. Pneumoniae, Proteus Penneri 01/09/25 wound lower leg: staph aureus Assessment And Plan: Multiple decubitus in a patient with history of liver mets and prostate cancer. Ascites. Right-sided pleural effusion. Continue antibiotic bactrim po for total 14 days and supportive care. We will follow the patient as needed. case round in agreement with Dr Mixon
--- NOTE | 2025-01-28 09:33 | P.PN ---
Subjective Date of Service: 01/28/25 Chief Complaint: Patient with metastatic liver/Prostate cancer Patient upset regarding delay in placement. He is wanting to speak with the director of casework department. 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 -Patient declines further treatment - Hospice care with SNF/[place] UTI -ABX per ID Cachectic - Encourage PO intake - Continue Ensure Enlive Stage II sacral decubitus ulcers and buttocks wound Sacral coccyx stage III Right big toe unstageable Right hip deep tissue injury Left hip unstageable wound - Wound care consulted and following - Right big toe unstageable wound recommend Betadine - Right hip deep tissue injury recommend Betadine and foam - Left hip unstageable wound recommend Betadine and foam - Sacral coccyx stage III recommend barrier cream and offloading and low air loss mattress - Infectious disease consulted, cultures polymicrobial including MRSA, on oral ABX now #Cirrhosis of liver, varices and ascites: Status post paracentesis last week, monitor volume status closely, started him on diuretics on 01/21, seemf fluid accumulating again, repeat ultrasound 01/22 showed moderate ascites. s/p paracentesis on 01/24/2025 with 1600 ml removed 69-year-old patient with metastatic prostate cancer, he is interested in hospice. Cirrhosis, varices and splenomegaly on imaging. Retroperitoneal lymphadenopathy and bone lesions on imagiing. UTI, continue antibiotics, plan to discharge to facility with hospice when bed available. Waiting for placement. s/p paracentesis on 01/24/2025with 1600 ml removed
--- NOTE | 2025-01-29 10:45 | P.PN ---
Subjective Date of Service: 01/29/25 Chief Complaint: Patient with metastatic liver/Prostate cancer Patient still upset regarding delay in placement to care home for hospice Review of Systems 10-point ROS is otherwise unremarkable Physical Examination - Vital Signs Temperature: 97.8 F Blood Pressure: 112/63 Pulse: 95 Respirations: 16 Pulse Ox (%): 94 - Physical Exam General: Alert, Oriented x3 HEENT: Atraumatic Neck: Supple Respiratory: Clear to auscultation bilaterally Cardiovascular: No edema, Normal pulses, Regular rate/rhythm Gastrointestinal: Normal bowel sounds, Soft and benign, Non-distended Musculoskeletal: No clubbing, No swelling Assessment And Plan - Plan 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 -Patient declines further treatment - Hospice care with SNF/[place] UTI -ABX per ID Cachectic - Encourage PO intake - Continue Ensure Enlive Stage II sacral decubitus ulcers and buttocks wound Sacral coccyx stage III Right big toe unstageable Right hip deep tissue injury Left hip unstageable wound - Wound care consulted and following - Right big toe unstageable wound recommend Betadine - Right hip deep tissue injury recommend Betadine and foam - Left hip unstageable wound recommend Betadine and foam - Sacral coccyx stage III recommend barrier cream and offloading and low air loss mattress - Infectious disease consulted, cultures polymicrobial including MRSA, on oral ABX now #Cirrhosis of liver, varices and ascites: Status post paracentesis last week, monitor volume status closely, started him on diuretics on 01/21, seemf fluid accumulating again, repeat ultrasound 01/22 showed moderate ascites. s/p paracentesis on 01/24/2025 with 1600 ml removed 69-year-old patient with metastatic prostate cancer, he is interested in hospice. Cirrhosis, varices and splenomegaly on imaging. Retroperitoneal lymphadenopathy and bone lesions on imagiing. UTI, continue antibiotics, plan to discharge to facility with hospice when bed available. Waiting for placeme nt. s/p paracentesis on 01/24/2025with 1600 ml removed
--- NOTE | 2025-01-30 06:45 | P.PN ---
Date of Service: 01/30/25 Subjective Chief Complaint: Patient with metastatic liver/Prostate cancer DC plan with hospice vs pallative care, pain controlled, no acute disress noted Review of Systems 10-point ROS is otherwise unremarkable Physical Examination - Vital Signs reviewed - Physical Exam General: Alert Oriented x3, no acute distress Neck: Supple, Respiratory: Normal air movement, unlabored Cardiovascular: Regular rate/rhythm, Edema Capillary refill: <2 Seconds Gastrointestinal: Splenomegaly, moderate abdominal ascites Musculoskeletal: Swelling Integumentary: Skin breakdown, Other (B) hip, sacral ulcer, lower extr venous stasis ulcers) Neurological: Normal speech, Normal strength at 5/5 x4 extr Assessment And Plan - Plan Assessment 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 -Patient declines further treatment - Hospice care with SNF/[place] ID following UTI -ABX per ID Cachectic - Encourage PO intake - Continue Ensure Enlive Stage II sacral decubitus ulcers and buttocks wound Sacral coccyx stage III Right big toe unstageable Right hip deep tissue injury Left hip unstageable wound - Wound care consulted and following - Right big toe unstageable wound recommend Betadine - Right hip deep tissue injury recommend Betadine and foam - Left hip unstageable wound recommend Betadine and foam - Sacral coccyx stage III recommend barrier cream and offloading and low air loss mattress - Infectious disease consulted, cultures polymicrobial including MRSA, adjusted antibiotics by ID on 01/13. Discharge Plan: Other (hospice vs pallative care) - Code Status/Comfort Care Comfort Measures: Palliative Care Critical Care: No Time Spent Managing PTS Care (In Minutes): 25
--- NOTE | 2025-01-30 16:35 | P.PN ---
Date of Service: 01/30/25 Subjective: Patient awaiting transfer to [facility] for hospice care. Denies any headache, nausea, vomiting, chest pain, abdominal pain. Objective: Vital Signs: Temp Pulse Resp BP Pulse Ox 98.4 F 96 H 16 105/55 L 94 01/30/25 12:00 01/30/25 12:00 01/30/25 12:00 01/30/25 12:00 01/30/25 12:00 Lungs: CTA Heart: S1, S2. Regular. Abdomen: Soft. rounded. NT . Bowel sounds present. Extremities: Trace edema. multiple decubitus wounds. Neuro: ao x3 Laboratory Data: wbc 5.2, BUN 26, Cr 0.78 01/09/25 wound left hip: Enterobacter Cloacae, Proteus Penneri, Staph Aureus 01/09/25 wound sacral: MRSA, K. Pneumoniae, Proteus Penneri 01/09/25 wound lower leg: staph aureus Assessment And Plan: Multiple decubitus in a patient with history of liver mets and prostate cancer. Ascites. Right-sided pleural effusion. Continue antibiotic bactrim po for total 14 days (stop date 02/04/25) and supportive care. We will follow the patient as needed. case round in agreement with Dr Mixon
--- NOTE | 2025-01-30 22:16 | RAD REPORT ---
EXAMINATION: US Abdomen Exam Limited CLINICAL HISTORY: eval for ascites COMPARISON: 01/22/2025 TECHNIQUE: Limited lower abdominal grayscale and color flow sonographic images. FINDINGS: Moderate free ascites in the lower quadrants, appears to have progressed since the prior exam. IMPRESSION: Progressive moderate lower abdominal free ascites.
[2025-01-31 08:09] LABS: Anion Gap 7.6 mEq/L (5.0-15.0); Potassium 4.6 mEq/L (3.5-5.1)
[2025-01-31 08:25] LABS: Absolute Eosinophils 0.1 K/uL (0-0.5); Absolute Lymphocytes (CBC) 1.9 K/uL (0.7-4.9); Absolute Monocytes 0.5 K/uL (0.1-1.3); Absolute Neutrophil 3.1 K/uL (1.8-8.0); Basophils % 0.9 % (0-1.3); Eosinophils % 2.5 % (0-4.4); Hematocrit 41.3 % (39.6-49.0); Hemoglobin 14.6 g/dL (13.6-17.9); Lymphocytes % 33.5 % (15.3-44.8); MCH 32.6 pg (27.0-35.0); MCHC 35.4 g/dL (32.0-36.0); MCV 92.3 fL (80-100); MPV 6.9 fL (7.6-11.3); Monocytes % 8.6 % (3.3-12.3); Neutrophils % 54.5 % (41.7-73.7); Nucleated Red Blood Cells % 0.2 % (0-0); Platelets 198 thou/uL (152-406); RBC Red Blood Cell Count 4.48 M/uL (4.33-5.43)
[2025-01-31] MEDS: MORPHINE 4 MG/ML SYR IV PRN (11:12)
[2025-01-31] MEDS: MORPHINE 2 MG/ML SYR IV PRN (16:56)
[2025-01-31] MEDS: FENTANYL 25 MCG/PATCH TD ONE (18:20)
--- NOTE | 2025-01-31 23:31 | PN ---
Subjective: The patient is lying in bed. No new acute event. Continuing to have problem with ascit es and abdominal distention and discomfort. Objective: Vital Signs: Temperature 97, pulse 100, respiration 18, blood pressure 112/69. Lungs: Basal crackles. Heart: S1, S2. Regular. Abdomen: Soft, nontender. Bowel sounds present. Extremities: 2+ edema. Laboratory Data: Shows WBC 5.6, hemoglobin 14.6, platelets 198. Chemistry shows BUN of 29, creatini ne 0.8. Albumin level of 1.9. Sacral wound culture and blood cultures are showing Staph aureus, Pro teus penneri, Klebsiella pneumoniae, MRSA, Enterobacter cloacae. The patient is currently on Bactrim DS. Assessment And Plan: 1. Metastatic prostate cancer with metastases to liver. 2. Urinary tract infection. 3. Ascites. 4. Multiple wounds, including sacral coccyx region, buttock region, right big toe, and right hip and left hip unstageable wounds. Continue wound care and antibiotic, and supportive care. Monitor signs of infection with WBC and fever trend. NF/MODL Voice ID: [id number] Report ID: [id number]
[2025-02-01] MEDS: HYDROCODONE/APAP 10/325 TAB PO PRN (10:12)
--- NOTE | 2025-02-01 10:21 | RAD REPORT ---
PROCEDURE: ULTRASOUND GUIDED PARACENTESIS CLINICAL INDICATION: [facility] MAIN Ascites PROCEDURE DETAILS: Consent: Informed consent for the procedure including risks, benefits and alternatives was obtained a nd time-out was performed prior to the procedure. Preparation: The site was prepared and draped using maximal sterile barrier technique including cutan eous antisepsis. Procedure: Initial limited abdominal ultrasound was performed and a large amount of ascites was seen. A safe window for paracentesis was identified with ultrasound to chelsey a suitable access site. Local anesthesia was administered. The peritoneal cavity was accessed, and fluid return confirmed pos ition. A 5F Yueh catheter was placed and cloudy ascites was drained. A total of approximately 8 L were drained. The catheter was removed, and a sterile bandage was applied. Following the procedure, a lbumin was administered per protocol. IMPRESSION: Successful ultrasound-guided diagnostic and therapeutic paracentesis. PLAN: Aspirated fluid was sent for analysis.
--- NOTE | 2025-02-01 17:24 | P.PN ---
Date of Service: 02/01/25 Subjective: Patient awaiting transfer to [place] for hospice care. Denies any headache, nausea, vomiting, chest pain, abdominal pain. Objective: Vital Signs: Temp Pulse Resp BP Pulse Ox 98.2 F 101 H 16 108/62 97 02/01/25 16:00 02/01/25 16:00 02/01/25 16:00 02/01/25 16:00 02/01/25 16:00 Lungs: CTA Heart: S1, S2. Regular. Abdomen: Soft. rounded. NT . Bowel sounds present. Extremities: Trace edema. multiple decubitus wounds. Neuro: ao x3 Laboratory Data: wbc 5.6, BUN 29, Cr 0.83 01/09/25 wound left hip: Enterobacter Cloacae, Proteus Penneri, Staph Aureus 01/09/25 wound sacral: MRSA, K. Pneumoniae, Proteus Penneri 01/09/25 wound lower leg: staph aureus Assessment And Plan: Multiple decubitus in a patient with history of liver mets and prostate cancer. Ascites. Right-sided pleural effusion. Continue antibiotic bactrim po for total 14 days (stop date 02/04/25) and supportive care. We will follow the patient as needed. case round in agreement with Dr Mixon
--- NOTE | 2025-02-01 18:15 | P.PN ---
Date of Service: 01/31/25 Subjective Had a long talk with patient. He is agreeable to try correction facility. Also encouraged patient to start participating more with physical therapy. His abdomen is slightly distended and we will go ahead and do a paracentesis in the morning. Encouraged patient to get out of bed. Patient was able to stand at the edge of the bed and walk in place. Physical therapy consulted. 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 Agreeable to try correction facility. UTI; patient has pretty much completed his antibiotic regimen. Will go ahead and discontinue antibiotics in AM. Will also DC isolation Cancer cachexia; encourage oral supplementation. Encourage nutritional support. Appetite stimulant as needed. Unfortunately patient's cancer is rapidly progressive and his prognosis is very poor. Pressure ulcer; patient with stage II to the sacrum and stage III to the coccyx. Patient also with a big toe wound; continue with wound care and infectious disease consultation appreciated Discharge Plan: intermediate facility - Code Status/Comfort Care Comfort Measures: Palliative Care Critical Care: No Time Spent Managing PTS Care (In Minutes): 25
--- NOTE | 2025-02-01 18:17 | P.PN ---
Date of Service: 02/01/25 Subjective Spoke with patient about working with physical therapy. He states that he was having some abdominal pain and was able to work with them today. I asked him if he would want a walk with me and he was agreeable. Patient got out of bed on his own. Able to use walker appropriately. Able to walk down the hallway without much difficulty although he did have to make quite a few stops. In total he walked about 40 feet without stopping in the first time. Then he walked 20 feet on 2 different occasions without stopping. Will continue working on longterm facility placement at [facility]. If patient does well at [facility] then he possibly can go home. He is wanting a scooter so he could get around. Will work with social worker masters to get this arranged. However, if patient declines because of his cancer and he has cancer cachexia then he may need to proceed with hospice care. At this time, we have taken the approach that we will work with patient aggressively and try to get him ambulating. 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 Agreeable to try longterm facility. UTI; patient has pretty much completed his antibiotic regimen. Will go ahead and discontinue antibiotics in AM. Will also DC isolation Cancer cachexia; encourage oral supplementation. Encourage nutritional support. Appetite stimulant as needed. Unfortunately patient's cancer is rapidly progressive and his prognosis is very poor. Pressure ulcer; patient with stage II to the sacrum and stage III to the coccyx. Patient also with a big toe wound; continue with wound care and infectious disease consultation appreciated Discharge Plan: intermediate facility at [facility]. - Code Status/Comfort Care Comfort Measures: Palliative Care Critical Care: No Time Spent Managing PTS Care (In Minutes): 25
--- NOTE | 2025-02-02 22:48 | PN ---
Subjective: The patient is lying in bed. No new complaints. Denies any chest pain, abdominal pain, constipation, diarrhea. Objective: Vital Signs: Temperature 98, pulse 97, respirations 20, blood pressure 188/64. Lungs: Basal crackles. Heart: S1, S2. Regular. Abdomen: Distended. Bowel sounds present. Extremities: Trace edema. Laboratory Data: No new labs are available. Assessment And Plan: 1. Metastatic prostate cancer to liver with ascites. 2. Urinary tract infection. 3. Skin failure secondary to overall deconditioning. Prognosis guarded. We will follow the patient as needed. NF/MODL Voice ID: [id number] Report ID: [id number]
--- NOTE | 2025-02-03 06:27 | P.PN ---
Date of Service: 02/02/25 Subjective Patient is clinically doing better. Got out of bed and ambulated with physical therapy today. Awaiting for placement at [facility]. Clinically doing much better. Status post paracentesis. Patient had 8 to 9 L of fluid removed from his abdomen. Will need to arrange for outpatient paracentesis with [facility]. Long-term patient will proceed with hospice care. 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 Agreeable to try [facility] facility. UTI; patient has pretty much completed his antibiotic regimen. Will go ahead and discontinue antibiotics in AM. Will also DC isolation Cancer cachexia; encourage oral supplementation. Encourage nutritional support. Appetite stimulant as needed. Unfortunately patient's cancer is rapidly progressive and his prognosis is very poor. Pressure ulcer; patient with stage II to the sacrum and stage III to the coccyx. Patient also with a big toe wound; continue with wound care and infectious disease consultation appreciated Discharge Plan: nursing home facility at [facility]. - Code Status/Comfort Care Comfort Measures: Palliative Care Critical Care: No Time Spent Managing PTS Care (In Minutes): 25
--- NOTE | 2025-02-03 06:28 | P.PN ---
Date of Service: 02/03/25 Subjective Patient is clinically stable. Continues participating with physical therapy. Out of bed and ambulate today and arranging for placement at [facility]. Will need to also schedule outpatient paracentesis weekly. 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 Agreeable to try [facility] facility. UTI; patient has pretty much completed his antibiotic regimen. Will go ahead and discontinue antibiotics in AM. Will also DC isolation Cancer cachexia; encourage oral supplementation. Encourage nutritional support. Appetite stimulant as needed. Unfortunately patient's cancer is rapidly progressive and his prognosis is very poor. Pressure ulcer; patient with stage II to the sacrum and stage III to the coccyx. Patient also with a big toe wound; continue with wound care and infectious disease consultation appreciated Discharge Plan: custodial facility at [facility]. - Code Status/Comfort Care Comfort Measures: Palliative Care Critical Care: No Time Spent Managing PTS Care (In Minutes): 25
--- NOTE | 2025-02-03 17:56 | P.PN ---
Date of Service: 02/03/25 Subjective: Pt is seen lying in bed. Denies any headache, nausea, vomiting, chest pain, abdominal pain. Objective: Vital Signs: Temp Pulse Resp BP Pulse Ox 98.2 F 106 H 16 111/59 L 97 02/03/25 16:00 02/03/25 16:00 02/03/25 16:00 02/03/25 16:00 02/03/25 16:00 Lungs: basilar crackles Heart: S1, S2. Regular. Abdomen: Soft. rounded. NT . Bowel sounds present. Extremities: Trace edema. multiple decubitus wounds to left hip, sacral, lower leg Neuro: ao x3 Laboratory Data: wbc 5.6, BUN 29, Cr 0.83 01/09/25 wound left hip: Enterobacter Cloacae, Proteus Penneri, Staph Aureus 01/09/25 wound sacral: MRSA, K. Pneumoniae, Proteus Penneri 01/09/25 wound lower leg: staph aureus Assessment And Plan: metastatic prostate cancer to liver with ascites skin failure secondary to overall deconditioning UTI Continue antibiotic bactrim po for total 14 days (stop date 02/04/25) and supportive care. We will follow the patient as needed Discharge Plan: [facility] facility at [facility]. case round in agreement with Dr Mixon
[2025-02-05] MEDS ORDERED: FENTANYL CITR 100 MCG/2 ML IV PRN (14:40)
[2025-02-05] MEDS: MORPHINE 2 MG/ML SYR IV ONE (15:53)
[2025-02-05] MEDS: FUROSEMIDE 20 MG/ 2ML VIAL IV ONE (15:55)
[2025-02-05] MEDS: CEFTRIAXONE 1,000 MG in NA CHLORIDE 0.9% 50 ML IVPB ONE (15:55)
[2025-02-05] MEDS: SPIRONOLACTONE 25 MG TABLET PO SCH (20:31)
--- NOTE | 2025-02-06 03:46 | P.PN ---
Date of Service: 02/04/25 Subjective Patient is clinically doing well. Patient is little more confused today than normal. Continue monitoring neurologic status closely. Continue monitoring labs as well. Continue with physical therapy and wait for SNF placement. 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 Awaiting for [facility] facility placement. UTI; DC antibiotics Cancer cachexia; encourage oral supplementation. Encourage nutritional support. Appetite stimulant as needed. Unfortunately patient's cancer is rapidly progressive and his prognosis is very poor. Pressure ulcer; patient with stage II to the sacrum and stage III to the coccyx. Patient also with a big toe wound; continue with wound care and infectious disease consultation appreciated Discharge Plan: senior living facility at [facility]. - Code Status/Comfort Care Comfort Measures: Palliative Care Critical Care: No Time Spent Managing PTS Care (In Minutes): 25
--- NOTE | 2025-02-06 03:49 | P.PN ---
Date of Service: 02/05/25 Subjective patient is lethargic today. Still having abdominal pain. Abdominal ascites has increased significantly from just a few days ago and will go ahead and repeat paracentesis and will do cultures. Physical Examination - Vital Signs reviewed - Physical Exam General: Alert Oriented x3, Respiratory: Basilar crackles Cardiovascular: Regular rate/rhythm, Edema Gastrointestinal: Ascites; abdominal pain Musculoskeletal: Minimal lower extremity edema Integumentary: Skin breakdown, Other (B) hip, sacral ulcer, lower extremity venous stasis ulcers Neurological: Generalized weakness Assessment And Plan - Assessment /Plan: Continue with plan of care as mentioned below: 1. 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 Awaiting for [facility] facility placement. 2. UTI; DC antibiotics 3. Cancer cachexia; encourage oral supplementation. Encourage nutritional support. Appetite stimulant as needed. Unfortunately patient's cancer is rapidly progressive and his prognosis is very poor. 4. Pressure ulcer; patient with stage II to the sacrum and stage III to the coccyx. Patient also with a big toe wound; continue with wound care and infectious disease consultation appreciated 5. Discharge Plan: jail facility at [facility]. - Code Status/Comfort Care Comfort Measures: SNF v. Palliative Care Critical Care: No Time Spent Managing PTS Care (In Minutes): 25
[2025-02-06] MEDS: CEFTRIAXONE 1,000 MG in NA CHLORIDE 0.9% 50 ML IVPB SCH (09:59)
--- NOTE | 2025-02-06 21:30 | P.PN ---
Date of Service: 02/06/25 Subjective: Pt is seen lying in bed. Report pain in abdomen Objective: Vital Signs: Temp Pulse Resp BP Pulse Ox 97.7 F 96 H 17 107/67 93 02/06/25 15:56 02/06/25 20:16 02/06/25 19:49 02/06/25 20:16 02/06/25 19:49 Lungs: basilar crackles Heart: S1, S2. Regular. Abdomen: Soft. rounded and distended. tenderness on light palpation to abdomen quadrants Extremities: Trace edema. multiple decubitus wounds to left hip, sacral, lower leg Neuro: AOx3 Laboratory Data: wbc 5.6, BUN 29, Cr 0.83 02/06/25 Body/Ascites fluid: pending 01/09/25 wound left hip: Enterobacter Cloacae, Proteus Penneri, Staph Aureus 01/09/25 wound sacral: MRSA, K. Pneumoniae, Proteus Penneri 01/09/25 wound lower leg: staph aureus Assessment And Plan: metastatic prostate cancer to liver with ascites repeat paracentesis body/ascities fluid pending on rocephin pending SNF placement skin failure secondary to overall deconditioning completed bactrim po for total 14 days (stop date 02/04/25) continue wound and supportive care. UTI off abx for UTI We will follow the patient as needed Discharge Plan: [facility]iary facility at [facility]. case round in agreement with Dr Mixon
--- NOTE | 2025-02-07 04:08 | P.PN ---
Date of Service: 02/06/25 Subjective Patient is more lethargic. Continue with antibiotics for possible SBP. Paracentesis in the morning. Labs pending. Prognosis remains poor. Waiting for SNF placement. If denied we may need to go ahead and proceed with inpatient hospice as patient is declining quite quickly. Physical Examination - Vital Signs reviewed - Physical Exam General: Alert Oriented x2, Respiratory: Basilar crackles Cardiovascular: Regular rate/rhythm, Edema Gastrointestinal: Ascites; abdominal pain Musculoskeletal: Minimal lower extremity edema Integumentary: Skin breakdown, Other (B) hip, sacral ulcer, lower extremity venous stasis ulcers Neurological: Generalized weakness Assessment And Plan - Assessment /Plan: Continue with plan of care as mentioned below: 1. 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 Awaiting for residential facility placement. Repeat paracentesis 2. UTI; DC antibiotics 3. Cancer cachexia; encourage oral supplementation. Encourage nutritional support. Appetite stimulant as needed. Unfortunately patient's cancer is rapidly progressive and his prognosis is very poor. 4. Pressure ulcer; patient with stage II to the sacrum and stage III to the coccyx. Patient also with a big toe wound; continue with wound care and infectious disease consultation appreciated 5. Discharge Plan: half-way facility at [facility]. - Code Status/Comfort Care Comfort Measures: SNF v. Palliative Care Critical Care: No Time Spent Managing PTS Care (In Minutes): 25
[2025-02-07 07:32] LABS: Absolute Eosinophils 0.2 K/uL (0-0.5); Absolute Lymphocytes (CBC) 1.7 K/uL (0.7-4.9); Absolute Monocytes 0.6 K/uL (0.1-1.3); Absolute Neutrophil 2.7 K/uL (1.8-8.0); Basophils % 0.9 % (0-1.3); Eosinophils % 4.6 % (0-4.4); Hematocrit 38.8 % (39.6-49.0); Hemoglobin 13.5 g/dL (13.6-17.9); Lymphocytes % 31.8 % (15.3-44.8); MCH 32.2 pg (27.0-35.0); MCHC 34.9 g/dL (32.0-36.0); MCV 92.3 fL (80-100); MPV 6.6 fL (7.6-11.3); Monocytes % 11.8 % (3.3-12.3); Neutrophils % 50.9 % (41.7-73.7); Nucleated Red Blood Cells % 0.2 % (0-0); Platelets 192 thou/uL (152-406); Red Cell Distribution Width 16.3 % (12.1-15.2)
[2025-02-07 08:03] LABS: Albumin 1.8 g/dL (3.4-5.0); Albumin/Globulin Ratio 0.4 (1.1-1.8); Anion Gap 7.4 mEq/L (5.0-15.0); Bilirubin Total 0.7 mg/dL (0.2-1.0); Globulin 4.7 g/dL (2.3-3.5); Magnesium 2.1 mg/dL (1.6-2.4); Potassium 4.4 mEq/L (3.5-5.1); Protein, Total 6.5 g/dL (6.4-8.2)
--- NOTE | 2025-02-07 09:55 | RAD REPORT ---
PROCEDURE: ULTRASOUND GUIDED PARACENTESIS CLINICAL INDICATION: [facility] MAIN ascites PROCEDURE DETAILS: Consent: Informed consent for the procedure including risks, benefits and alternatives was obtained a nd time-out was performed prior to the procedure. Preparation: The site was prepared and draped using maximal sterile barrier technique including cutan eous antisepsis. Procedure: Initial limited abdominal ultrasound was performed and a large amount of ascites was seen. A safe window for paracentesis was identified with ultrasound to chelsey a suitable access site. Local anesthesia was administered. The peritoneal cavity was accessed, and fluid return confirmed pos ition. A 6F catheter was placed and cloudy, mildly serosanguineous ascites was drained, with a total of 8 L removed. The catheter was removed, and a sterile bandage was applied. Following the proc edure, albumin was administered per protocol. IMPRESSION: Successful ultrasound-guided diagnostic and therapeutic paracentesis. PLAN: Aspirated fluid was sent for analysis.
--- NOTE | 2025-02-07 12:56 | P.PN ---
Subjective Date of Service: 02/07/25 Chief Complaint: Patient with metastatic liver/Prostate cancer Subjective: No chest pain or shortness of breath. No nausea or vomiting. No abdominal pain, had paracentesis this morning. No obvious bleeding. Looks comfortable in the bed. Objective: General appearance: Alert and comfortable CVS: Normal S1 and S2 Lungs: Clear to auscultation bilaterally Abdomen: Soft, bowel sounds present, no tenderness ext: edema b/l legs with venous stasis changes better compared with before Physical Examination - Vital Signs Temperature: 98.0 F Blood Pressure: 112/64 Pulse: 94 Respirations: 20 Pulse Ox (%): 95 Assessment And Plan - Plan 1. Metastatic prostate cancer to the liver -Patient declines further treatment - Hospice care with SNF/[place] 2. UTI -finished ABX per ID recs 3. Cachectic - Encourage PO intake - Continue Ensure Enlive 4. Stage II sacral decubitus ulcers and buttocks wound Sacral coccyx stage III Right big toe unstageable Right hip deep tissue injury Left hip unstageable wound - Wound care consulted and following - Right big toe unstageable wound recommend Betadine - Right hip deep tissue injury recommend Betadine and foam - Left hip unstageable wound recommend Betadine and foam - Sacral coccyx stage III recommend barrier cream and offloading and low air loss mattress - Infectious disease consulted, cultures polymicrobial including MRSA, finished ABX 5. Cirrhosis of liver, varices and ascites: Status post multiple paracentesis this admission, last one was this morning, monitor volume status closely, started him on diuretics on 4/5 -on rocephin as per ID 69-year-old patient with metastatic prostate cancer, he is interested in hospice. Cirrhosis, varices and splenomegaly on imaging. Retroperitoneal lymphadenopathy and bone lesions on imagiing. UTI, done antibiotics, plan to discharge to facility with hospice when bed available. Waiting for placement. had repeat paracentesis today. Plan discussed with the patient and case management team, still waiting for placement.
[2025-02-07 15:22] LABS: Body Fluid Lymphocytes 91 %; Fluid Total Cells Count 100
[2025-02-07 15:34] LABS: Body Fluid Source PERITONEAL; Color of fluid Yellow (COLORLESS); Tube # SINGLE
[2025-02-07 15:35] LABS: Appearance TURBID (CLEAR)
[2025-02-07] MEDS: HYDROCODONE/APAP 5/325 MG TAB PO PRN (16:23)
[2025-02-07 19:37] LABS: Body Fluid WBC 66 /mm^3
--- NOTE | 2025-02-07 21:08 | PN ---
Subjective: The patient had parasymphysis earlier today. Denies any chest pain. Having some abdomi nal discomfort. No nausea, vomiting. No diarrhea. Objective: Vital Signs: Temperature 97.9, pulse 97, respirations 18, blood pressure 114/62. Lungs: Basal crackles. Heart: S1, S2. Regular. Abdomen: Mildly distended. Bowel sounds present. Extremities: Trace edema. Laboratory Data: Shows WBC 5.4, hemoglobin 13, platelets are 192. BUN of 28, creatinine 0.8. Album in level is 1.8. Assessment And Plan: 1. Metastatic prostate cancer to the liver. 2. Urosepsis. 3. Sacrococcyx stage III, buttock stage II wounds. Right big toe unstageable wound. Right hip deep tissue injury. Left hip unstageable wound. 4. Moderate protein-calorie malnourishment. 5. Prognosis is guarded. We will follow the patient as needed. NF/MODL Voice ID: [id number] Report ID: [id number]
--- NOTE | 2025-02-08 12:20 | P.PN ---
Subjective Date of Service: 02/08/25 Chief Complaint: Patient with metastatic liver/Prostate cancer Subjective: No chest pain or shortness of breath. No nausea or vomiting. No abdominal pain, had paracentesis 02/07. No obvious bleeding. Looks comfortable in the bed. Objective: General appearance: Alert and comfortable CVS: Normal S1 and S2 Lungs: Clear to auscultation bilaterally Abdomen: Soft, bowel sounds present, no tenderness ext: edema b/l legs with venous stasis changes better compared with before Physical Examination - Vital Signs Temperature: 97.8 F Blood Pressure: 121/64 Pulse: 105 Respirations: 20 Pulse Ox (%): 96 Assessment And Plan - Plan 1. Metastatic prostate cancer to the liver -Patient declines further treatment - Hospice care with SNF pending 2. UTI -finished ABX per ID recs 3. Cachectic - Encourage PO intake - Continue Ensure Enlive 4. Stage II sacral decubitus ulcers and buttocks wound Sacral coccyx stage III Right big toe unstageable Right hip deep tissue injury Left hip unstageable wound - Wound care consulted and following - Right big toe unstageable wound recommend Betadine - Right hip deep tissue injury recommend Betadine and foam - Left hip unstageable wound recommend Betadine and foam - Sacral coccyx stage III recommend barrier cream and offloading and low air loss mattress - Infectious disease consulted, cultures polymicrobial including MRSA, finished ABX 5. Cirrhosis of liver, varices and ascites: Status post multiple paracentesis this admission, last one was 02/07, monitor volume status closely, started him on diuretics on 01/21 -fluid analisis reviewed, ROSAMARIA solano 69-year-old patient with metastatic prostate cancer, he is interested in hospice. Cirrhosis, varices and splenomegaly on imaging. Retroperitoneal lymphadenopathy and bone lesions on imagiing. UTI, done antibiotics, plan to discharge to facility with hospice when bed available. Waiting for placement. had repeat paracentesis 02/07. Plan discussed with the patient and case management team, still waiting for placement.
--- NOTE | 2025-02-08 22:58 | PN ---
Subjective: The patient is lying in bed. No new acute event. Concern regarding possible discharge. Objective: Vital Signs: Temperature 99, pulse 100, respirations 20, blood pressure 110/62. Lungs: Basal crackles. Heart: S1, S2. Regular. Abdomen: Mildly distended. Bowel sounds present. Extremities: Trace edema. Wounds noted. Laboratory Data: Reviewed. Assessment And Plan: 1. Metastatic prostate cancer with metastasis to liver. Overall prognosis is poor with ascites being needed to drain every few days. 2. Urinary tract infection. Treatment completed. 3. Stage II sacral wound. 4. Stage III sacrococcyx wound. 5. Right big toe unstageable wound. 6. Right hip deep tissue injury. 7. Left hip unstageable wound. 8. Continue current treatment. Prognosis is guarded. We will follow the patient as needed. NF/MODL Voice ID: [id number] Report ID: [id number]
--- NOTE | 2025-02-09 14:21 | P.PN ---
Subjective Date of Service: 02/09/25 Chief Complaint: Patient with metastatic liver/Prostate cancer Subjective: No chest pain or shortness of breath. No nausea or vomiting. c/o some abdominal pain, had paracentesis 02/07. No obvious bleeding. Looks comfortable in the bed. Objective: General appearance: Alert and comfortable CVS: Normal S1 and S2 Lungs: Clear to auscultation bilaterally Abdomen: Soft, bowel sounds present, no tenderness but abd feels little distended, seems fluid accumulating again ext: mild edema b/l legs with venous stasis changes, better compared with before Physical Examination - Vital Signs Temperature: 97.9 F Blood Pressure: 98/56 Pulse: 99 Respirations: 16 Pulse Ox (%): 95 Assessment And Plan - Plan 1. Metastatic prostate cancer to the liver -Patient declines further treatment - Hospice care with SNF pending 2. UTI -finished ABX per ID recs 3. Cachectic - Encourage PO intake - Continue Ensure Enlive 4. Stage II sacral decubitus ulcers and buttocks wound Sacral coccyx stage III Right big toe unstageable Right hip deep tissue injury Left hip unstageable wound - Wound care consulted and following - Right big toe unstageable wound recommend Betadine - Right hip deep tissue injury recommend Betadine and foam - Left hip unstageable wound recommend Betadine and foam - Sacral coccyx stage III recommend barrier cream and offloading and low air loss mattress - Infectious disease consulted, cultures polymicrobial including MRSA, finished ABX 5. Cirrhosis of liver, varices and ascites: Status post multiple paracentesis this admission, last one was 02/07, monitor volume status closely, started him on diuretics on 01/21 -Seems fluid accumulating again, may need repeat paracentesis soon, blood pressure soft, cannot go up on diuretics. 69-year-old patient with metastatic prostate cancer, he is interested in hospice. Cirrhosis, varices and splenomegaly on imaging. Retroperitoneal lymphadenopathy and bone lesions on imagiing. UTI, done antibiotics, plan to discharge to facility with hospice when bed available. Waiting for placement. had repeat paracentesis 02/07. Plan discussed with the patient and case management team, still waiting for plac ement.
--- NOTE | 2025-02-09 21:14 | PN ---
Subjective: The patient lying in bed. No new acute event. Denies any chest pain, nausea, vomiting. Concerned about discharge planning. Large paracentesis on February 07. Objective: Vital Signs: Temperature 98.3, pulse 100, respirations 16, blood pressure 106/56. Lungs: Basal crackles. Heart: S1, S2. Regular. Abdomen: Distended. Bowel sounds present. Extremities: Trace edema. Wounds noted. Assessment And Plan: 1. Metastatic prostate cancer to the liver. Prognosis guarded. 2. Urinary tract infection. Antibiotic ended. 3. Stage II sacral decubitus and buttock wounds. 4. Sacral coccyx stage III wound. 5. Big toe unstageable wound with eschar tissue. 6. Right hip deep tissue injury. 7. Left hip unstageable wound. Continue current treatment. We will follow the patient as needed. Monitor signs of infection with W BC and fever trends. NF/MODL Voice ID: [id number] Report ID: [id number]
--- NOTE | 2025-02-10 13:14 | P.PN ---
Subjective Date of Service: 02/10/25 Chief Complaint: Patient with metastatic liver/Prostate cancer Subjective: No chest pain or shortness of breath. No nausea or vomiting. c/o some abdominal pain, had paracentesis 02/07. No obvious bleeding. Looks comfortable in the bed. Objective: General appearance: Alert and comfortable CVS: Normal S1 and S2 Lungs: Clear to auscultation bilaterally Abdomen: Soft, bowel sounds present, no tenderness but abd feels little distended, seems fluid accumulating again ext: mild edema b/l legs with venous stasis changes, better compared with before Physical Examination - Vital Signs Temperature: 97.9 F Blood Pressure: 121/67 Pulse: 95 Respirations: 15 Pulse Ox (%): 95 Assessment And Plan - Plan 1. Metastatic prostate cancer to the liver -Patient declines further treatment - Hospice care with SNF pending 2. UTI -finished ABX per ID recs 3. Cachectic - Encourage PO intake - Continue Ensure Enlive 4. Stage II sacral decubitus ulcers and buttocks wound Sacral coccyx stage III Right big toe unstageable Right hip deep tissue injury Left hip unstageable wound - Wound care consulted and following - Right big toe unstageable wound recommend Betadine - Right hip deep tissue injury recommend Betadine and foam - Left hip unstageable wound recommend Betadine and foam - Sacral coccyx stage III recommend barrier cream and offloading and low air loss mattress - Infectious disease consulted, cultures polymicrobial including MRSA, finished ABX 5. Cirrhosis of liver, varices and ascites: Status post multiple paracentesis this admission, last one was 02/07, monitor volume status closely, started him on diuretics on 01/21 -Seems fluid accumulating again, may need repeat paracentesis soon, blood pressure soft, cannot go up on diuretics. 69-year-old patient with metastatic prostate cancer, he is interested in hospice. Cirrhosis, varices and splenomegaly on imaging. Retroperitoneal lymphadenopathy and bone lesions on imagiing. UTI, done with antibiotics, plan to discharge to facility with hospice when bed available. Waiting for placement. had repeat paracentesis 02/07. Will get basic labs tomorrow, consider abdominal ultrasound over the weekend if abdomen continues to distend. Plan discussed with the patient and case management team, still waiting for placement.
--- NOTE | 2025-02-10 21:54 | P.PN ---
Date of Service: 02/10/25 Subjective: Pt is seen lying in bed. Report pain in abdomen Objective: Vital Signs: Temp Pulse Resp BP Pulse Ox 98.6 F 100 H 16 113/63 96 02/10/25 16:00 02/10/25 19:49 02/10/25 17:49 02/10/25 16:00 02/10/25 17:49 Lungs: basilar crackles Heart: S1, S2. Regular. Abdomen: Soft. rounded and distended. Extremities: Trace edema. multiple decubitus wounds to left hip, sacral, lower leg Neuro: AOx3 Laboratory Data: wbc 5.6, BUN 29, Cr 0.83 02/06/25 Body/Ascites fluid:no growth 01/09/25 wound left hip: Enterobacter Cloacae, Proteus Penneri, Staph Aureus 01/09/25 wound sacral: MRSA, K. Pneumoniae, Proteus Penneri 01/09/25 wound lower leg: staph aureus 01/30 abdomen US: progressive moderate lower abdominal free ascites Assessment And Plan: 1. metastatic prostate cancer to liver with ascites paracentesis on february 07 body/ascities fluid no growth pending Hospice care with SNF placement 2. skin failure secondary to overall deconditioning stage II sacral decubitus and buttock wounds sacral coccyx stage 3 big toe unstageable wound with eschar tissue right hip DTI Left hip unstageable wound completed bactrim po for total 14 days (stop date 02/04/25) continue wound and supportive care. recommend offloading and low air loss mattress 3. UTI rocephin completed. off abx case round in agreement with Dr Mixon
[2025-02-11 08:45] LABS: Absolute Basophils 0.1 K/uL (0-0.5); Absolute Eosinophils 0.2 K/uL (0-0.5); Absolute Lymphocytes (CBC) 1.6 K/uL (0.7-4.9); Absolute Monocytes 0.7 K/uL (0.1-1.3); Absolute Neutrophil 3.8 K/uL (1.8-8.0); Basophils % 0.8 % (0-1.3); Eosinophils % 3.2 % (0-4.4); Hematocrit 36.7 % (39.6-49.0); Lymphocytes % 24.8 % (15.3-44.8); MCH 32.4 pg (27.0-35.0); MCHC 35.5 g/dL (32.0-36.0); MCV 91.2 fL (80-100); MPV 6.3 fL (7.6-11.3); Monocytes % 11.5 % (3.3-12.3); Neutrophils % 59.7 % (41.7-73.7); Nucleated Red Blood Cells % 0.1 % (0-0); Platelets 214 thou/uL (152-406); RBC Red Blood Cell Count 4.02 M/uL (4.33-5.43); Red Cell Distribution Width 16.1 % (12.1-15.2)
[2025-02-11 09:03] LABS: Albumin 1.7 g/dL (3.4-5.0); Albumin/Globulin Ratio 0.4 (1.1-1.8); Anion Gap 7.6 mEq/L (5.0-15.0); Bilirubin Direct 0.3 mg/dL (0-0.2); Bilirubin Indirect, Calculated 0.4 mg/dL (0.2-0.8); Bilirubin Total 0.7 mg/dL (0.2-1.0); Globulin 4.6 g/dL (2.3-3.5); Potassium 4.6 mEq/L (3.5-5.1); Protein, Total 6.3 g/dL (6.4-8.2)
--- NOTE | 2025-02-11 17:36 | P.PN ---
Date of Service: 02/11/25 Subjective Sleeping comfortably no new complaints Continue supportive care Appeal for placement, no new report ROS 10 point ROS as noted above, otherwise negative Physical Exam General: AAO x3, NAD Neck: Supple, 2+ carotid pulse no bruit, No LAD, Without JVD or thyroid abnormality Respiratory: Clear BBS, on RA Cardiovascular: mild tachycardia, Normal S1 S2 Gastrointestinal: soft and nontender on palpation, mild distention Musculoskeletal: No clubbing Integumentary: Pressure ulcer (Stage II on the sacral region and the buttocks), Other (Multiple abrasions on the arm with skin breakdown and pressure ulcer) Neurological: Normal speech, Normal tone, Sensation intact Vitals Reviewed Problem list 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 cachectic Stage II sacral decubitus ulcers and buttocks wound Sacral coccyx stage III Right big toe unstageable Right hip deep tissue injury Left hip unstageable wound UTI Assessment and Plan 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 -patient declines further treatment -requests hospice care, palliative comfort care UTI -continue rocephin -Urine cultures with mixed joanna cachectic -Encourage PO intake -Ensure Enlive Stage II sacral decubitus ulcers and buttocks wound Sacral coccyx stage III Right big toe unstageable Right hip deep tissue injury Left hip unstageable wound -wound care consultation -palliative care treatment -Right big toe unstageable wound recommend Betadine -Right hip deep tissue injury recommend Betadine and foam -Left hip unstageable wound recommend Betadine and foam -Sacral coccyx stage III recommend barrier cream and offloading and low air loss mattress -infectious disease consulted -Wound culture ordered: - left hip wound growing gram negative rods -sacral wound growing staph coagulase positive -Left lower leg wound NGTD Cirrhosis of liver, varices and ascites Status post multiple paracentesis -last paracentesis was 02/07, monitor volume status closely, started him on diuretics on 01/21 -Seems fluid accumulating again, may need repeat paracentesis soon, blood pressure soft, cannot go up on diuretics. DVT ppx SCD DNR Dispo- [facility] Time Spent Managing Pts Care (In Minutes): 35 <Luna Maloney - Last Filed: 02/11/25 17:29> I have personally reviewed and discussed the patient's history, physical exam findings, assessment, and plan as documented by Luna Maloney NP. I confirmed the accuracy of the information and agree with the management of the plan as outlined <Darius Valadez - Last Filed: 02/11/25 17:54>
--- NOTE | 2025-02-12 07:38 | P.PN ---
Subjective Chief Complaint: Patient with metastatic liver/Prostate cancer DC plan with hospice vs pallative care, pain controlled, no acute disress noted Review of Systems 10-point ROS is otherwise unremarkable Physical Examination - Vital Signs reviewed - Physical Exam General: Alert Oriented x3, no acute distress, afebrile. Respiratory: Normal air movement, unlabored Cardiovascular: Regular rate/rhythm, Edema Capillary refill: <2 Seconds Gastrointestinal: Splenomegaly, moderate abdominal ascites Musculoskeletal: Swelling, moderate generalized weakness, Integumentary: Skin breakdown, Other (B) hip, sacral ulcer, lower extr venous stasis ulcers) Neurological: Normal speech, Normal strength at 5/5 x4 extr Assessment And Plan - Plan Assessment 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 -Patient declines further treatment - Hospice care with SNF/[place] ID following UTI -ABX per ID Cachectic - Encourage PO intake - Continue Ensure Enlive Stage II sacral decubitus ulcers and buttocks wound Sacral coccyx stage III Right big toe unstageable Right hip deep tissue injury Left hip unstageable wound - Wound care consulted and following - Right big toe unstageable wound recommend Betadine - Right hip deep tissue injury recommend Betadine and foam - Left hip unstageable wound recommend Betadine and foam - Sacral coccyx stage III recommend barrier cream and offloading and low air loss mattress - Infectious disease consulted, cultures polymicrobial including MRSA, adjusted antibiotics by ID on 01/13. Discharge Plan: Other (hospice vs pallative care) - Code Status/Comfort Care Comfort Measures: Palliative Care Critical Care: No Time Spent Managing PTS Care (In Minutes): 20 <Monse Reynoso - Last Filed: 02/12/25 14:30> Date of Service: 02/12/25 I have personally reviewed and discussed the patient's history, physical exam findings, assessment, and plan as documented by Monse Reynoso NP. I confirmed the accuracy of the information and agree with the management of the plan as outlined <Darius Valadez - Last Filed: 02/12/25 16:56>
--- NOTE | 2025-02-13 07:37 | P.PN ---
Date of Service: 02/13/25 Subjective Chief Complaint: Patient with metastatic liver/Prostate cancer Moderate abdominal distention, plan for n.p.o. overnight for a Pleurx catheter, Review of Systems 10-point ROS is otherwise unremarkable Physical Examination - Vital Signs reviewed - Physical Exam General: Alert Oriented x3, no acute distress Respiratory: Normal air movement, Cardiovascular: Regular rate/rhythm, Edema Capillary refill: <2 Seconds Gastrointestinal: Splenomegaly, moderate abdominal ascites Musculoskeletal: Swelling, moderate generalized weakness, Integumentary: Skin breakdown, Other (B) hip, sacral ulcer, lower extr venous stasis ulcers) Neurological: Normal speech, Normal strength at 5/5 x4 extr Assessment And Plan - Plan Assessment 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 Decompensated liver disease -Patient declines further treatment - Hospice care with SNF/[place] ID following -02/13 n.p.o. overnight for a Pleurx catheter UTI cystitis resolved -ABX per ID Cachectic - Encourage PO intake - Continue Ensure Enlive Stage II sacral decubitus ulcers and buttocks wound Sacral coccyx stage III Right big toe unstageable Right hip deep tissue injury Left hip unstageable wound - Wound care consulted and following - Right big toe unstageable - Right hip deep tissue injury - Left hip unstageable wound dressing withBetadine and foam - Sacral coccyx stage III recommend barrier cream and offloading and low air loss mattress - Infectious disease consulted, cultures polymicrobial including MRSA, adjusted antibiotics by ID on 01/13. Discharge Plan: Other (hospice vs pallative care) - Code Status/Comfort Care Comfort Measures: Palliative Care Critical Care: No Time Spent Managing PTS Care (In Minutes): 25
[2025-02-13] MEDS: MORPHINE 4 MG/ML SYR IV PRN (10:11)
--- NOTE | 2025-02-13 13:56 | P.PN ---
This is an attestation to [employer] note. Subjective: No chest pain or shortness of breath. No nausea or vomiting. c/o some abdominal pain, had paracentesis 02/07. No obvious bleeding. Looks comfortable in the bed. Objective: General appearance: Alert and comfortable CVS: Normal S1 and S2 Lungs: Clear to auscultation bilaterally Abdomen: Soft, bowel sounds present, no tenderness but abdomen more distended ext: mild edema b/l legs with venous stasis changes, better compared with before 69-year-old patient with metastatic prostate cancer, he is interested in hospice. Cirrhosis, varices and splenomegaly on imaging. Retroperitoneal lymphadenopathy and bone lesions on imagiing. UTI, done with antibiotics, plan to discharge to facility with hospice. had paracentesis 02/07, fluid accumulating again, plan for repeat paracentesis tomorrow. Discussed with case management team, [facility] him [facility], will discuss with IR about placing an aspirate catheter. Plan discussed with the patient and nursing staff, answered all questions.
[2025-02-13] MEDS: HYDROCODONE/APAP 7.5/325 MG TAB PO PRN (14:24)
[2025-02-13] MEDS: ENSURE ENLIVE 237 ML CAN PO SCH (20:34)
--- NOTE | 2025-02-13 21:12 | P.PN ---
Date of Service: 02/13/25 Subjective: Pt is seen lying in bed. Report pain in abdomen, otherwise no other concern. pending discharge tomorrow Objective: Vital Signs: Temp Pulse Resp BP Pulse Ox 98.6 F 96 H 18 118/72 94 02/13/25 16:00 02/13/25 20:33 02/13/25 16:00 02/13/25 20:33 02/13/25 16:00 General: alert and awake. not in distress Lungs: basilar crackles Heart: S1, S2. Regular. Abdomen: Soft. rounded and distended.ascites noted. pain on palpation Extremities: Trace edema. multiple decubitus wounds to left hip, sacral, lower l eg Neuro: AOx3 Laboratory Data: wbc 5.6, BUN 29, Cr 0.83 02/13:body fluid right abdomen pending 02/06/25 Body/Ascites fluid:no growth 01/09/25 wound left hip: Enterobacter Cloacae, Proteus Penneri, Staph Aureus 01/09/25 wound sacral: MRSA, K. Pneumoniae, Proteus Penneri 01/09/25 wound lower leg: staph aureus 01/30 abdomen US: progressive moderate lower abdominal free ascites Assessment And Plan: 1. metastatic prostate cancer to liver with ascites paracentesis on february 07 8 L removed body/ascities fluid no growth pending Hospice care with SNF placement 2. skin failure secondary to overall deconditioning stage II sacral decubitus and buttock wounds sacral coccyx stage 3 big toe unstageable wound with eschar tissue right hip DTI Left hip unstageable wound completed bactrim po for total 14 days (stop date 02/04/25) off abx continue wound and supportive care. recommend offloading and low air loss mattress monitor wbc and fever trend 3. UTI rocephin completed. off abx monitor wbc and fever trend case round in agreement with Dr Mixon
[2025-02-14 06:16] LABS: PT Prothrombin Time 12.7 SECONDS (10-13.0); PTT, Activated Partial Thromb 33.8 SECONDS (27.2-37.4); Protime INR 1.12
[2025-02-14 06:22] LABS: Anion Gap 7.3 mEq/L (5.0-15.0); Magnesium 2.1 mg/dL (1.6-2.4); Potassium 4.3 mEq/L (3.5-5.1)
--- NOTE | 2025-02-14 06:59 | P.DS ---
Admission Date: 01/09/25 Discharge Date: 02/15/25 Disposition: TRANSFER TO PRISON Discharge Condition: FAIR Reason for Admission: Patient with metastatic liver/Prostate cancer Brief History of Present Illness: Patient is a 69-year-old gentleman who came to the hospital with metastatic liver and prostate cancer. Adult protective service was actually called and they went and did a welfare check and patient was not in a great living condition. Patient's son ended up having her at take patient to the hospital. Patient with a history of prostate cancer that has been untreated as well as metastatic liver cancer. Patient's had family members with cancer treatment and he feels like they do worse with chemotherapy. He did not want to undergo any chemotherapy. He would prefer to go to [facility] under hospice care. P peter was admitted for placement and will also try to get hospice care involved as well. Patient does not want to be resuscitated and we had a long discussion regarding this as well. - Physical Exam General: Alert, In no apparent distress, Cachectic HEENT: Atraumatic, PERRLA, Mucous membr. moist/pink, EOMI, Sclerae nonicteric Neck: Supple, 2+ carotid pulse no bruit, No LAD, Without JVD or thyroid abnormality Respiratory: Clear to auscultation bilaterally, Normal air movement Cardiovascular: Regular rate/rhythm, Normal S1 S2 Gastrointestinal: Normal bowel sounds, No tenderness Musculoskeletal: No clubbing, No swelling, No tenderness Integumentary: Pressure ulcer (Stage II on the sacral region and the buttocks), Other (Multiple abrasions on the arm with skin breakdown and pressure ulcer) Neurological: Normal speech, Normal tone, Sensation intact, Cranial nerves 3-12 intact, Normal affect, Abnormal gait, Abnormal strength Lymphatics: No axilla or inguinal lymphadenopathy Hospital Course: 69-year-old gentleman who came to the hospital with metastatic liver and prostate cancer. Adult protective service was actually called and they went and did a welfare check and patient was not in a great living condition. Patient's son ended up having her at take patient to the hospital. Patient with a history of prostate cancer that has been untreated as well as metastatic liver cancer. Patient's had family members with cancer treatment and he feels like they do worse with chemotherapy. He did not want to undergo any chemotherapy. . Patient was admitted for placement. Patient does not want to be resuscitated. Plan to discharge to [facility] facility, Pleurx catheter placed by surger y, ascites drained while inpatient, plan to discharge to [facility] facility Pleurx catheter placed Remove up to 1 L/day per GI Dr. Vera Montejoro 500 mg daily indefinitely high risk for SBP spontaneous bacterial peritonitis Okay to discharge to [facility] facility Assessment Prostate cancer metastatic to the liver plan to discharge to hospice Decompensated liver disease, treated with paracentesis, Pleurx catheter placed Cachexia, protein calorie supplementation Sacral decubitus ulcer, cleaned wound, pain control Acute cystitis, finished antibiotics while inpatient Abrasions on the left arm, supportive care, fall precautions GOAL: Clear understanding of disease process INSTRUCTIONS: Physician Discharge Instructions: -Follow-up with hospice after discharge -Please call if any questions regarding hospital stay -Please call nursing station at [phone] if any nursing or medication questions -Return to the emergency room if symptoms worsen Diet: Comfort feeds Activity: Fall precautions Vital Signs/Physical Exam: Temp Pulse Resp BP Pulse Ox 97.8 F 101 H 20 150/64 H 96 02/14/25 04:00 02/14/25 04:00 02/14/25 04:21 02/14/25 04:00 02/14/25 04:21 Laboratory Data at Discharge: WBC 6.30 thou/uL (4.3-10.9) 02/11/25 08:14 Hgb 13.0 g/dL (13.6-17.9) L 02/11/25 08:14 Hct 36.7 % (39.6-49.0) L 02/11/25 08:14 Plt Count 214 thou/uL (152-406) 02/11/25 08:14 PT 12.7 SECONDS (10-13.0) 02/14/25 05:59 INR 1.12 02/14/25 05:59 APTT 33.8 SECONDS (27.2-37.4) 02/14/25 05:59 Sodium 135 mEq/L (136-145) L 02/14/25 05:59 Potassium 4.3 mEq/L (3.5-5.1) 02/14/25 05:59 BUN 38 mg/dL (7-18) H 02/14/25 05:59 Creatinine 0.73 mg/dL (0.70-1.30) 02/14/25 05:59 Glucose 130 mg/dL (74-106) H 02/14/25 05:59 Magnesium 2.1 mg/dL (1.6-2.4) 02/14/25 05:59 Total Bilirubin 0.7 mg/dL (0.2-1.0) 02/11/25 08:14 AST 30 U/L (15-37) 02/11/25 08:14 ALT 23 U/L (16-61) 02/11/25 08:14 Alkaline Phosphatase 130 U/L (45-117) H 02/11/25 08:14 Lipase 34 U/L (13-75) 01/09/25 14:05 Home Medications: NK [No Home Meds] 01/10/25 Physician Discharge Instructions: 69-year-old gentleman who came to the hospital with metastatic liver and prostate cancer. Adult protective service was actually called and they went and did a welfare check and patient was not in a great living condition. Patient's son ended up having her at take patient to the hospital. Patient with a history of prostate cancer that has been untreated as well as metastatic liver cancer. Patient's had family members with cancer treatment and he feels like they do worse with chemotherapy. He did not want to undergo any chemotherapy. He would prefer to go to [facility] under hospice care. Patient was admitted for placement and will also try to get hospice care involved as well. Patient does not want to be resuscitated. Plan to discharge to SNF facility per patient's request., Pleurx catheter placed by surgery, ascites drained while inpatient, plan to discharge to [facility]. Pleurx catheter placed Remove up to 1 L/day per GI Dr. Vera Montejoro 500 mg daily indefinitely high risk for SBP spontaneous bacterial peritonitis prophylax Okay to discharge to [facility] facility 02/14 1 L removed, Pleurx catheter placed Assessment Prostate cancer metastatic to the liver plan to discharge to [facility] for Decompensated liver disease, treated with paracentesis, Pleurx catheter placed Cachexia, protein calorie supplementation Sacral decubitus ulcer, cleaned wound, pain control Acute cystitis, finished antibiotics while inpatient Abrasions on the left arm, supportive care, fall precautions GOAL: Clear understanding of disease process INSTRUCTIONS: Physician Discharge Instructions: -Follow-up with hospice after discharge -Please call if any questions regarding hospital stay -Please call nursing station at [phone] if any nursing or medication questions -Return to the emergency room if symptoms worsen Diet: Comfort feeds Activity: Fall precautions Diet: Regular Followup: Ralph Seymour MD [ACTIVE - CAN ADMIT] - NONE,NONE [Primary Care Provider] - Time spent managing pt's care (in minutes): 45
[2025-02-14 08:25] LABS: Absolute Eosinophils 0.2 K/uL (0-0.5); Absolute Lymphocytes (CBC) 1.6 K/uL (0.7-4.9); Absolute Monocytes 0.7 K/uL (0.1-1.3); Absolute Neutrophil 3.6 K/uL (1.8-8.0); Basophils % 0.4 % (0-1.3); Eosinophils % 3.9 % (0-4.4); Hemoglobin 13.4 g/dL (13.6-17.9); Lymphocytes % 26.1 % (15.3-44.8); MCH 32.4 pg (27.0-35.0); MCHC 35.1 g/dL (32.0-36.0); MCV 92.1 fL (80-100); MPV 6.8 fL (7.6-11.3); Monocytes % 11.2 % (3.3-12.3); Neutrophils % 58.4 % (41.7-73.7); Nucleated Red Blood Cells % 0.1 % (0-0); Platelets 185 thou/uL (152-406); RBC Red Blood Cell Count 4.13 M/uL (4.33-5.43); Red Cell Distribution Width 15.7 % (12.1-15.2)
[2025-02-14] MEDS: NA CHLORIDE 0.9% 500 ML ONE ×2 (12:00→13:50)
[2025-02-14] MEDS ORDERED: propofoL 200 MG/20 ML VIAL IV ONE ×2 (12:07→13:54)
[2025-02-14] MEDS ORDERED: LIDOCAINE 1% MPF 5 ML VIAL ONE (12:07)
[2025-02-14] MEDS ORDERED: FENTANYL CITR 100 MCG/2 ML ONE ×2 (12:07→13:55)
[2025-02-14] MEDS ORDERED: ROCURONIUM 50 MG/5 ML VIAL IV ONE ×2 (12:07→13:55)
[2025-02-14] MEDS ORDERED: MIDAZOLAM HCL 2 MG/2 ML INJ ONE ×2 (12:08→13:45)
--- NOTE | 2025-02-14 12:28 | P.PN ---
This is an attestation to PATIENT SERVICES CLERK note. Subjective: No chest pain or shortness of breath. No nausea or vomiting. c/o some abdominal pain, had paracentesis 02/07. No obvious bleeding. Looks comfortable in the bed. Objective: General appearance: Alert and comfortable CVS: Normal S1 and S2 Lungs: Clear to auscultation bilaterally Abdomen: Soft, bowel sounds present, no tenderness but abdomen distended ext: mild edema b/l legs with venous stasis changes, better compared with before 69-year-old patient with metastatic prostate cancer, he is interested in hospice. Cirrhosis, varices and splenomegaly on imaging. Retroperitoneal lymphadenopathy and bone lesions on imagiing. UTI, done with antibiotics, plan to discharge to facility with hospice. had paracentesis 02/07, fluid accumulating again, plan for repeat paracentesis today and aspira cath placement. Discussed with case management team, dc to facility later today or tomorrow. Plan discussed with the patient and nursing staff, answered all questions.
[2025-02-14] MEDS ORDERED: LIDOCAINE 2% MPF 5 ML VIAL ONE (13:55)
[2025-02-14] MEDS: CEFAZOLIN SODIUM 1 GM/VIAL ONE (14:29)
--- NOTE | 2025-02-14 14:58 | P.OP ---
Preoperative diagnosis: Recurrent Large Volume Ascites Postoperative diagnosis: Recurrent Large Volume Ascites Primary procedure: Ultrasound guided placement of Peritoneal Pleur-X Catheter Anesthesia: GETA + Local Estimated blood loss: <5cc Specimen: 1 liter of chylous appearing ascites Findings: 1 liter of chylous appearing ascites Complications: None Drain(s): Other (Pleur-X Catheter) Transferred to: Recovery Room Condition: Good
--- NOTE | 2025-02-14 15:21 | P.PN ---
Date of Service: 02/14/25 Subjective Chief Complaint: Patient with metastatic liver/Prostate cancer Large volume ascites, GI consulted to eval Review of Systems 10-point ROS is otherwise unremarkable Physical Examination - Vital Signs reviewed - Physical Exam General: Alert Oriented x3, no acute distress afebrile Respiratory: Normal air movement, even unlabored Cardiovascular: Regular rate/rhythm, lower extreme edema Capillary refill: <2 Seconds Gastrointestinal: Splenomegaly, large volume abdominal ascites Musculoskeletal: Swelling, moderate generalized weakness, Integumentary: Skin breakdown, Other (B) hip, sacral ulcer, lower extr venous stasis ulcers) Neurological: Normal speech, Normal strength at 5/5 x4 extr Assessment And Plan - Plan Assessment 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 Decompensated liver disease -Patient declines further treatment -Discharge planning SNF versus hospice ID following UTI cystitis resolved -ABX per ID Cachectic - Encourage PO intake - Continue Ensure Enlive Stage II sacral decubitus ulcers and buttocks wound Sacral coccyx stage III Right big toe unstageable Right hip deep tissue injury Left hip unstageable wound - Wound care consulted and following - Right big toe unstageable - Right hip deep tissue injury - Left hip unstageable wound dressing withBetadine and foam - Sacral coccyx stage III recommend barrier cream and offloading and low air loss mattress - Infectious disease consulted, cultures polymicrobial including MRSA, adjusted antibiotics by ID on 01/13. Discharge Plan: Other (hospice vs pallative care) - Code Status/Comfort Care Comfort Measures: Palliative Care Critical Care: No Time Spent Managing PTS Care (In Minutes): 25
[2025-02-14] MEDS: SUCCINYLCHOLINE 20 MG/ML (10 ML) IV ONE (17:42)
[2025-02-14] MEDS: ALBUMIN HUMAN 25% 100 ML IV SCH (17:53)
--- NOTE | 2025-02-14 18:58 | CON ---
Date of Consultation: 02/14/2025 Brief History Of Present Illness: The patient is a 69-year-old male with history of metastatic liver and prostate cancer who ultimately was brought to the hospital for welfare check. He was noted to h ave significant ascites and has had multiple paracentesis since being in the hospital, admitted origi bashir on 01/09/2025. He has had multiple paracentesis and keeps having recurrent accumulation of lar ge volume ascites requiring multiple paracentesis. As such, he was deemed appropriate for placement of a PleurX intraperitoneal tunneled drainage catheter. I am consulted for the above-stated issue. Past Medical History: Significant for diabetes, COPD, arthritis, BPH, prostate cancer, liver metasta tic cancer. Social History: He lives with his son, heavy smoker, significant history of alcohol abuse in the pas t, urinary incontinence. Allergies: NO KNOWN DRUG ALLERGIES. Review of Systems: 10-point review of systems other than HPI, denies. Physical Examination: General: At the time of my examination, he is awake, alert, and oriented. Psychiatric: He is appropriate, conversive. HEENT: He is normocephalic. Sclerae icteric. Mucous membranes are moist. Oropharynx clear. Neck: Supple. No JVD. Chest: Normal to expansion and excursion. Cardiovascular: Regular rate and rhythm. Pulmonary: Clear to auscultation bilaterally. Abdomen: Distended. Fluid shift, consistent with large volume ascites. Tender globally due to sign ificant distention. Tautness of the abdominal wall. Extremities: Thin and frail. No clubbing, cyanosis, edema. Laboratory Exam: White count of 6.1, hemoglobin 13.4, hematocrit 38.0, platelet count is 185. Sodiu m 138, potassium 4.3, chloride 104, carbon dioxide is 24, BUN 38, creatinine 0.7, glucose is 130. PT on 02/14 is 12.7, INR 1.12, PTT is 33.8. He had imaging performed, which included thoracentesis on multiple occasions beginning on 01/20, 01/24, 01/31, 02/01, 02/07. Abdomen and pelvis CT performed o n 01/16/2025, officially read as large volume ascites and small right pleural effusion. Ascites incr eased as probably source of the patient's abdominal distention, pain, retroperitoneal lymphadenopathy and osseous lesions representing metastatic disease, cirrhosis with evidence of portal hypertension evident. Assessment And Plan: This is a 69-year-old male who comes in with large volume ascites and medical c ondition as described above. Multiple thoracentesis and he deemed appropriate for placement of a Ple urX catheter. He has multiple episodes of removal of paracentesis. 1. Continue medical management. 2. I have explained the risks, benefits, and alternatives of placement of PleurX intraperitoneal tunn eled drainage catheter including, but not limited to bleeding, infection, damage to internal organs i ncluding intestines, need for further operative procedures, blood clot, heart attack, stroke, other u nforeseen complication in the perioperative period. 3. I recommend the patient to have evaluation for TIPS procedure to see if he is a candidate. 4. I recommend Hepatology consult for management of his fluid situation. I have explained risks, reagan efits, and alternatives of the above-stated plan. The patient agreed to proceed as indicated. KIRSTEN/IVIS Voice ID: [id number] Report ID: [id number]
--- NOTE | 2025-02-14 23:38 | PN ---
Subjective: The patient is lying in bed, complains of abdominal distention and discomfort. Objective: Vital Signs: Temperature 97, pulse 94, respirations 18, blood pressure 109/66. Lungs: Basal crackles. Heart S1, S2. Regular. Abdomen: Distended. Bowel sounds present. Extremities: Trace edema. Wounds noted. Laboratory Data: WBC 6.1, hemoglobin 13.4, platelets 185. Chemistry shows BUN of 38, creatinine 0.7 . Albumin level is 1.7. Assessment And Plan: Metastatic prostate cancer to the liver with large ascites, recurrent, requirin g multiple paracentesis. Multiple wounds as described previously, continue wound care. Urinary trac t infection, completed treatment. Poor prognosis. Continue supportive care and wound care. We will follow the patient as needed. NF/MODL Voice ID: [id number] Report ID: [id number]
--- NOTE | 2025-02-15 02:38 | OP ---
Date of Procedure: 02/14/2025 Surgeon: Ralph Seymour MD, Preoperative Diagnosis: Recurrent large volume ascites. Postoperative Diagnosis: Recurrent large volume ascites. Procedure Performed: Ultrasound-guided placement of a peritoneal PleurX catheter. Anesthesia: General endotracheal plus local 1% lidocaine. Estimated Blood Loss: Less than 5 cc. Specimen: 1 L of chylous-appearing ascites. Findings: Consistent with 1 L of chylous-appearing ascites. Complications: None. Implants: PleurX catheter placed. Patient transferred to recovery room in good condition. Procedure In Detail: After informed consent was obtained, the patient was brought to the operating r oom, prepped and draped in the usual sterile fashion after adequate anesthesia achieved. Using ultra sound guidance to inspect the area, the right upper quadrant down to subcutaneous tissues, there was no bowel anywhere near this area. The bowel was closed in midline. Nothing in the right upper quadr ant or right lateral abdomen within close range making it for safe placement of the catheter. At thi s point, I made a small chiquita incision overlying a proposed insertion site adjacent to the ultrasound guided. I then inserted a cannula sheath into the peritoneal cavity and immediately encountered asci sushil fluid. The needle was removed medially. Wire was advanced at this point, sheath was removed. A t this point, wire left in place. At this point, I found a site approximately 4 to 5 cm apart from t he previous site, made a small counter incision in this area and passed the tunneling device after ap propriately anesthetizing the tract through this area to bring the catheter into the insertion site f ield. The cuff was in the mid portion of this. At this point, I performed sequential dilatation usi ng Seldinger technique, ultimately placed the catheter into the introducer sheath into the right uppe r quadrant without evidence of complication. At this point, the sheath was removed in its entirety. I then hooked the suction system up to the PleurX drainage system and drained approximately 1 L of c hylous ascites into the chamber, which sent off for examination and analysis for fat and c ulture. At this point, the sutures were placed in interrupted fashion at the insertion site which wa s a 3-0 nylon suture. After appropriately irrigating these areas as well as the exit site and the st erile dressing was placed over top. The patient tolerated procedure well without incident or complic ations, transferred to PACU in good condition. All counts were correct at the end of the case. KIRSTEN/IVIS Voice ID: [id number] Report ID: [id number]
[2025-02-15] MEDS ORDERED: CIPROFLOXACIN HCL 500 MG TAB PO SCH (07:55)
[2025-02-15] MEDS: CIPROFLOXACIN HCL 500 MG TAB PO SCH (08:41)
[2025-02-15 10:16] LABS: Magnesium 2.2 mg/dL (1.6-2.4)
--- NOTE | 2025-02-15 10:56 | P.PN ---
Date of Service: 02/15/25 Subjective Chief Complaint: Patient with metastatic liver/Prostate cancer Pleurx catheter in place, moderate drainage drainage, Cipro daily ordered for increased risks of spontaneous bacterial peritonitis, patient is afebrile Still with moderate ascites Review of Systems 10-point ROS is otherwise unremarkable Physical Examination - Vital Signs reviewed - Physical Exam General: Alert Oriented x3, afebrile Respiratory: , respirations equal unlabored Cardiovascular: Regular rate/rhythm, edema Capillary refill: <2 Seconds Gastrointestinal: Splenomegaly, large volume abdominal ascites Pleurx catheter in place, with drainage with covered with dressing Musculoskeletal: Swelling, moderate generalized weakness, Integumentary: Skin breakdown, Other (B) hip, sacral ulcer, lower extr venous stasis ulcers) Neurological: Normal speech, Normal strength at 5/5 x4 extr, answers questions of 4 Assessment And Plan - Plan Assessment 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 Decompensated liver disease -Patient declines further treatment -Discharge planning SNF versus hospice ID following UTI cystitis resolved -ABX per ID Cachectic - Encourage PO intake - Continue Ensure Enlive Stage II sacral decubitus ulcers and buttocks wound Sacral coccyx stage III Right big toe unstageable Right hip deep tissue injury Left hip unstageable wound - Wound care consulted and following - Right big toe unstageable - Right hip deep tissue injury - Left hip unstageable wound dressing withBetadine and foam - Sacral coccyx stage III recommend barrier cream and offloading and low air loss mattress - Infectious disease consulted, cultures polymicrobial including MRSA, adjusted antibiotics by ID on 01/13. Discharge Plan: Other (hospice vs pallative care) - Code Status/Comfort Care Comfort Measures: Palliative Care Critical Care: No Time Spent Managing PTS Care (In Minutes): 25
[2025-02-15] MEDS: LIDOCAINE 1% MPF 5 ML VIAL IJ SCH (14:30)
--- NOTE | 2025-02-15 14:42 | P.PN ---
Date of Service: 02/15/25 Subjective: Pt is seen lying in bed. no new acute event. denied any concern Objective: Vital Signs: Temp Pulse Resp BP Pulse Ox 98.2 F 103 H 18 124/70 93 02/15/25 12:00 02/15/25 12:00 02/15/25 12:00 02/15/25 12:00 02/15/25 12:00 General: alert and awake. not in distress Lungs: basilar crackles Heart: S1, S2. Regular. Abdomen: Soft. rounded and distended.ascites noted. pain on palpation. dressing noted on abdomen with some drainage. nursing notified Extremities: Trace edema. multiple decubitus wounds to left hip, sacral, lower leg Neuro: AOx3 Laboratory Data: wbc 6.1, BUN 29, Cr 0.87 02/14 gastric aspirate pending 02/13:body fluid right abdomen pending 02/06/25 Body/Ascites fluid:no growth 01/09/25 wound left hip: Enterobacter Cloacae, Proteus Penneri, Staph Aureus 01/09/25 wound sacral: MRSA, K. Pneumoniae, Proteus Penneri 01/09/25 wound lower leg: staph aureus 01/30 abdomen US: progressive moderate lower abdominal free ascites Assessment And Plan: 1. metastatic prostate cancer to liver with Recurrent large ascites paracentesis cath placement on 02/14, removed 1 L everyday on Cipro for prophylaxis body/ascities fluid no growth 2. skin failure secondary to overall deconditioning stage II sacral decubitus and buttock wounds sacral coccyx stage 3 big toe unstageable wound with eschar tissue right hip DTI Left hip unstageable wound completed bactrim po for total 14 days (stop date 02/04/25) off abx continue wound and supportive care. recommend offloading and low air loss mattress monitor wbc and fever trend 3. UTI rocephin completed. off abx monitor wbc and fever trend case round in agreement with Dr Mixon
[2025-02-15] MEDS ORDERED: ONDANSETRON 4 MG/2 ML VIAL IV PRN (16:09)
[2025-02-15 17:00] LABS: Body Fluid WBC 159 /mm^3
[2025-02-15 17:05] LABS: Body Fluid Source PERITONEAL
[2025-02-15 17:12] LABS: Appearance VERY TURBID (CLEAR); Color of fluid White (COLORLESS)
[2025-02-15 17:56] LABS: Body Fluid Lymphocytes 82 %; Fluid Total Cells Count 100
[2025-02-15 19:43] LABS: Tube # SINGLE
[2025-02-16 06:30] VITALS: BMI 29.7
[2025-02-16 06:35] LABS: Anion Gap 7.2 mEq/L (5.0-15.0); Magnesium 1.8 mg/dL (1.6-2.4); Potassium 4.2 mEq/L (3.5-5.1)
[2025-02-16 11:17] VITALS: O2SAT 96
[2025-02-16 12:32] VITALS: BP 99/54; TEMP 98.3
--- NOTE | 2025-02-16 12:47 | P.DS ---
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 Decompensated liver disease -Patient declines further treatment -Discharge to facility with hospice # UTI cystitis resolved -ABX finished as per ID recs # Stage II sacral decubitus ulcers and buttocks wound Sacral coccyx stage III Right big toe unstageable Right hip deep tissue injury Left hip unstageable wound - Right big toe unstageable - Right hip deep tissue injury - Left hip unstageable wound dressing withBetadine and foam - Sacral coccyx stage III recommend barrier cream and offloading and low air loss mattress - Infectious disease consulted, cultures polymicrobial including MRSA, finished antibiotics as per ID recs # Recurrent ascites: Multiple paracentesis this admission, ascitic fluid drainage catheter placed Hospital course: 69-year-old patient with metastatic prostate cancer, he is interested in hospice. Cirrhosis, varices and splenomegaly on imaging. Retroperitoneal lymphadenopathy and bone lesions on imagiing. UTI, done with antibiotics. Due to recurrent ascites, he had multiple paracentesis done in the hospital, for the comfort measures, he had drainage catheter placed by the surg ical team, GI recommended to drain the fluid 1 L every day, started on Cipro for prophylaxis, case management team was following, we have a bed available at the facility and he is going to enroll into hospice there, I put in the discharge instructions to remove 1 L fluid every day until ascitic fluid leak stops, continue the Cipro for prophylaxis, follow-up with Dr. Gamez and Dr. Seymour as an outpatient. When I see the patient today, he is doing well without any acute problems other than abdominal pain which is chronic, mild fluid leak from the ascitic fluid catheter placement site. Subjective: No chest pain or shortness of breath. No nausea or vomiting. c/o some abdominal pain, had paracentesis cath placed on 02/14, still some fluid leaking from abdomen. No obvious bleeding. Looks comfortable in the bed. Objective: General appearance: Alert and comfortable CVS: Normal S1 and S2 Lungs: Clear to auscultation bilaterally Abdomen: Soft, bowel sounds present, no tenderness, dressing wet at cath site ext: mild edema b/l legs with venous stasis changes, better compared with before Plan to discharge to facility with hospice today. Plan discussed with the patient and nursing staff, answered all questions. Vital Signs/Physical Exam: Temp Pulse Resp BP Pulse Ox 98.3 F 109 H 20 99/54 L 94 02/16/25 12:00 02/16/25 12:00 02/16/25 12:00 02/16/25 12:00 02/16/25 12:00 Laboratory Data at Discharge: WBC 6.10 thou/uL (4.3-10.9) 02/14/25 05:59 Hgb 13.4 g/dL (13.6-17.9) L 02/14/25 05:59 Hct 38.0 % (39.6-49.0) L 02/14/25 05:59 Plt Count 185 thou/uL (152-406) 02/14/25 05:59 PT 12.7 SECONDS (10-13.0) 02/14/25 05:59 INR 1.12 02/14/25 05:59 APTT 33.8 SECONDS (27.2-37.4) 02/14/25 05:59 Sodium 138 mEq/L (136-145) 02/16/25 06:00 Potassium 4.2 mEq/L (3.5-5.1) 02/16/25 06:00 BUN 31 mg/dL (7-18) H 02/16/25 06:00 Creatinine 0.77 mg/dL (0.70-1.30) 02/16/25 06:00 Glucose 175 mg/dL (74-106) H 02/16/25 06:00 Magnesium 1.8 mg/dL (1.6-2.4) 02/16/25 06:00 Total Bilirubin 0.7 mg/dL (0.2-1.0) 02/11/25 08:14 AST 30 U/L (15-37) 02/11/25 08:14 ALT 23 U/L (16-61) 02/11/25 08:14 Alkaline Phosphatase 130 U/L (45-117) H 02/11/25 08:14 Lipase 34 U/L (13-75) 01/09/25 14:05 Home Medications: Ciprofloxacin HCl [Cipro 500 MG Tablet] 500 mg PO DAILY #30 tab 02/16/25 Furosemide [Lasix*] 40 mg PO DAILY #30 tab 02/16/25 Hydrocodone 5/APAP 325 [[place] 5/325] 1 tab PO TID PRN #15 tab 02/16/25 Spironolactone [Aldactone*] 25 mg PO BID #30 tab 02/16/25 New Medications: Spironolactone [Aldactone*] 25 mg PO BID #30 tab Ciprofloxacin HCl [Cipro 500 MG Tablet] 500 mg PO DAILY #30 tab Furosemide [Lasix*] 40 mg PO DAILY #30 tab Hydrocodone 5/APAP 325 [[place] 5/325] 1 tab PO TID PRN #15 tab PRN Reason: Pain Physician Discharge Instructions: 69-year-old gentleman who came to the hospital with metastatic liver and prostate cancer. Adult protective service was actually called and they went and did a welfare check and patient was not in a great living condition. Patient's son ended up having her at take patient to the hospital. Patient with a history of prostate cancer that has been untreated as well as metastatic liver cancer. Patient's had family members with cancer treatment and he feels like they do worse with chemotherapy. He did not want to undergo any chemotherapy. He would prefer to go to [facility] under hospice care. Patient was admitted for placement and will also try to get hospice care involved as well. Patient does not want to be resuscitated. Plan to discharge to SNF facility per patient's request., Pleurx catheter placed by surgery, ascites drained while inpatient, plan to discharge to care home. Pleurx catheter placed Remove up to 1 L/day per GI Dr. Gamez Cipro 500 mg daily indefinitely high risk for SBP spontaneous bacterial peritonitis prophylax Okay to discharge to care home facility 02/14 1 L removed, Pleurx catheter placed Assessment Prostate cancer metastatic to the liver plan to discharge to care home for Decompensated liver disease, treated with paracentesis, Pleurx catheter placed Cachexia, protein calorie supplementation Sacral decubitus ulcer, cleaned wound, pain control Acute cystitis, finished antibiotics while inpatient Abrasions on the left arm, supportive care, fall precautions GOAL: Clear understanding of disease process INSTRUCTIONS: Physician Discharge Instructions: -Follow-up with hospice after discharge -Please call if any questions regarding hospital stay -Please call nursing station at [phone] if any nursing or medication questions -Return to the emergency room if symptoms worsen Diet: Comfort feeds Activity: Fall precautions Diet: Regular Activity: Fall precautions Followup: NONE,NONE [Primary Care Provider] - Ralph Seymour MD [ACTIVE - CAN ADMIT] - 1 Week (drain 1 liter ascitic fluid everyday until leak stops, f/u with Dr. Seymour in 1 week) Timothy Argueta MD [ACTIVE - CAN ADMIT] - 1 Week (drain 1 liter ascitic fluid everyday until leak stops, f/u with Dr. argueta in 1 week) Time spent managing pt's care (in minutes): 34
--- NOTE | 2025-02-16 22:00 | PN ---
Subjective: The patient with no new complaints, being discharged to assisted. Denies any other problems. Objective: Vital Signs: Reviewed. Lungs: Basal crackles. Heart: S1, S2. Regular. Abdomen: Distended. Peritoneal drain in place. Extremities: Trace edema. Laboratory Data: Reviewed. Assessment And Plan: 1. Multiple decubitus ulcer. 2. Prostate cancer with metastasis to liver. 3. Prognosis is guarded. Currently, on Cipro. Continue treatment. We will follow the patient as ne eded. NF/MODL Voice ID: [id number] Report ID: [id number]
--- NOTE | 2025-02-21 15:40 | P.PN ---
Date of Service: 01/16/25 Subjective Patient with no new changes; clinically stable; awaiting placement Physical Examination - Vital Signs reviewed - Physical Exam no changes noted Assessment And Plan - Assessment /Plan: Continue with plan of care as mentioned below: 1. 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 Awaiting for jail facility placement. Repeat paracentesis 2. UTI; DC antibiotics 3. Cancer cachexia; encourage oral supplementation. Encourage nutritional support. Appetite stimulant as needed. Unfortunately patient's cancer is rapidly progressive and his prognosis is very poor. 4. Pressure ulcer; patient with stage II to the sacrum and stage III to the coccyx. Patient also with a big toe wound; continue with wound care and infectious disease consultation appreciated 5. Discharge Plan: [facility] facility at [facility]. - Code Status/Comfort Care Comfort Measures: SNF v. Palliative Care Critical Care: No Time Spent Managing PTS Care (In Minutes): 25
[2025-02-21 20:02] LABS: GLUCOSE, PERITONEAL FLUID 136 mg/dL; LD, PERITONEAL FLUID 39 U/L (<63); TOTAL PROTEIN,PERITONEAL FLUID <3.0 g/dL
== END 2025-02-16 15:47 | DRG 689 ==
LOC: ER 12:55 → ERHOLD 17:11 → 2ND 17:42
PROVIDERS: ADMIT Hospitalist; ATTEND Hospitalist
PROC: 0W9G3ZZ Drainage of Peritoneal Cavity, Percutaneous Approach (ICD-10-PCS; principal; 2025-01-24)
PROC: 02HV33Z Insertion of Infusion Device into Superior Vena Cava, Percutaneous Approach (ICD-10-PCS; 2025-02-10)
PROC: 0W9G3ZZ Drainage of Peritoneal Cavity, Percutaneous Approach (ICD-10-PCS; 2025-02-14)
PROC: 0W9F30Z Drainage of Abdominal Wall with Drainage Device, Percutaneous Approach (ICD-10-PCS; 2025-02-14)
DX: N30.00 Acute cystitis without hematuria (principal); L89.153 Pressure ulcer of sacral region, stage 3; E44.0 Moderate protein-calorie malnutrition; C78.7 Secondary malignant neoplasm of liver and intrahepatic bile duct; R64 Cachexia; R18.8 Other ascites; J90 Pleural effusion, not elsewhere classified; K74.60 Unspecified cirrhosis of liver; K76.9 Liver disease, unspecified; L89.152 Pressure ulcer of sacral region, stage 2; C61 Malignant neoplasm of prostate; E11.9 Type 2 diabetes mellitus without complications; D64.9 Anemia, unspecified; N40.0 Benign prostatic hyperplasia without lower urinary tract symptoms; S40.812A Abrasion of left upper arm, initial encounter; I87.8 Other specified disorders of veins; J44.9 Chronic obstructive pulmonary disease, unspecified; L89.216 Pressure-induced deep tissue damage of right hip; E88.09 Other disorders of plasma-protein metabolism, not elsewhere classified; F17.200 Nicotine dependence, unspecified, uncomplicated; B96.4 Proteus (mirabilis) (morganii) as the cause of diseases classified elsewhere; B95.62 Methicillin resistant Staphylococcus aureus infection as the cause of diseases classified elsewhere; R59.1 Generalized enlarged lymph nodes; Z66 Do not resuscitate; Z51.5 Encounter for palliative care; Z60.2 Problems related to living alone; Z79.4 Long term (current) use of insulin; Z68.29 Body mass index [BMI] 29.0-29.9, adult
CPT/HCPCS: 36415; 49083; 74176; 74177; 76705; 80048; 80053; 80076; 81001; 82042; 82105; 82550; 82945; 82947; 83615; 83690; 83735; 84157; 85025; 85610; 85730; 87070; 87077; 87086; 87088; 87186; 87205; 89050; 96374; 97110; 97116; 97161; 97165; 97530; 99285; J0690; J0696; J1938; J2003; J2250; J2270; J2405; J2543; J2704; J3010; J7030; J7040; P9047; Q9967

== ENCOUNTER 2025-02-18 15:12 | Inpatient (IN) | payer OTHER ==
--- OUTSIDE RECORDS SUMMARY | 2025-02-18 15:20 | XMS REPORT | Continuity of Care Document ---
Author Name Unknown Address [address] [facility] [address] [place] [address] Organization [facility] Address [address] [facility] [address] [place] [address] Care Team Providers Care Sourcing Associate Name Role Phone ABEL LOVELL ANNE-MARIE Primary Care Physician Unavailable Jaquan Acevedo Attending Clinician Unavailable Derick Gavin Attending Clinician Unavailable Luisa Vincent Attending Clinician Unavailable Phil KENT, Kellie Attending Clinician Unavailable Aretha Griffin MD Attending Clinician [phone] Ebenezer Clarke MD Attending Clinician [phone] Jax Foy MD Attending Cl inician JAX FOY Attending Clini estephania Unavailable Services, [facility] Attending Clinician Unav ailable Thomas_T Attending Clinician Unavailable GAYLORD_S Attending Clinician Unavailable Luisa Vincent Admitting Clinician Unavailable UNDEFINED Admitting Clinician Unavailable TannerJax Honeycutt MD Admitting Cl inician JAX FOY Admitting Jane best Unavailable Stephen_Jose Raul Admitting Clinician Unavailable VAZQUEZ Admitting Clinician Unavailable Payers Payer Name Policy Type Policy Number Effective Date Expirati on Date Source [employer] [id number] 2024 00:00:00 [facility] (MEDICARE REPLACEMENT HMO) [id number] 2021 00:00:00 [employer] MEDICARE C1 [id number] 2021 00:00:00 [facility] Problems Condition Name Condition Details Condition Category Status Onset Date Resolution Date Last Treatment Date Treating Clinician Comments Source Simple obesity Simple obesity Disease [facility] 2023-10 00:00: 00 Italo Morrow Acute hepatitis C virus infection without hepatic coma Acute hepatitis C virus infection without hepatic coma Disease Active 2023-10 00:00: 00 Italo Morrow Diabetes mellitus Diabetes mellitus Disease [facility] 2023-10 00:00: 00 Italo Morrow Other cirrhosis of liver Other cirrhosis of liver Disease Active 2023-10 00:00: 00 Italo Morrow 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) Disease Active 2023-10 00:00: 00 Italo Morrow Metastatic cancer Metastatic cancer Disease Active 2023-10 00:00: 00 Italo Morrow Right ventricula r dilation Right ventricula r dilation Disease Active 2023-10 00:00: 00 Italo Morrow CHROIC HEPATITIS C VIRUS, JOINT PAIN, LO CHROIC HEPATITIS C VIRUS, JOINT PAIN, LO Active 10/07/2012 [facility] Diagnosis Active 2011-10 00:00: 00 2012-10-26 09:38:00 Italo Andino 724.2 - LUMBAGO 724.2 - LUMBAGO Active 05/26/2012 [facility] Diagnosis Active 05-26 00:01: 00 2012-05-26 11:48:00 Italo Andino [id number] Type 2 diabetes mellitus with hyperglyce renu, without long-term current use of insulin Problem [facility] [id number] Osteoarthr itis of multiple joints, unspecifie d osteoarthr itis type Problem [facility] [id number] Chronic obstructiv e pulmonary disease, unspecifie d COPD type Problem [facility] [id number] Penile abnormalit y Problem [facility] [id number] Current moderate episode of major depressive disorder without prior episode Problem [facility] [id number] Chronic hepatitis C without hepatic coma Problem [facility] [id number] ASA (generaliz ed anxiety disorder) Problem [facility] [id number] Tobacco use disorder Problem [facility] [id number] Mixed hyperlipid emia Problem [facility] [id number] Essential (primary) hypertensi on Problem [facility] Arthritis Arthritis Resolved Problem 10/30/2012 [facility] Problem Resolve d 2012-10-30 09:26:41 Italo Andino Insomnia Insomnia Resolved Problem 10/30/2012 [facility] Problem Resolve d 2012-10-30 09:26:41 Italo Andino Asbestos fibers Asbestos fibers Active Problem 10/30/2012 [facility] Problem Active 2012-10-30 09:26:41 Italo Andino Hepatitis C Hepatitis C Active Problem 10/30/2012 [facility] Problem Active 2012-10-30 09:26:41 Italo Andino Pain Pain Active Problem 10/30/2012 [facility] Problem Active 2012-10-30 09:26:41 Italo Andino HEPATITIS NOS HEPATITIS NOS Active [facility] Diagnosis Active 2012-10-26 09:38:00 Italo Andino Altered mental status, unspecifie d altered mental status type Altered mental status, unspecifie d altered mental status type Disease Resolve d 2023-10 00:00: 00 2024-08-11 00:00:00 2024-08-11 09:42:19 Italo Andino Epic Suprapubic catheter dysfunctio n (CMS/HCC) Suprapubic catheter dysfunctio n (CMS/HCC) Disease Resolve d 2023-10 0-20 00:00: 00 2024-08-11 00:00:00 2024-08-11 09:42:18 Memoria rod Andino Epic Metabolic encephalop athy Metabolic encephalop athy Disease Resolve d 2023-10 0-16 00:00: 00 2024-08-11 00:00:00 2024-08-11 09:41:47 Memoria rod Andino Epic Aspiration pneumonia (CMS/HCC) Aspiration pneumonia (CMS/HCC) Disease Resolve d 2023-10 0-16 00:00: 00 2024-08-11 00:00:00 2024-08-11 09:41:49 Memoria rod Andino Epic Pleural effusion, right Pleural effusion, right Disease Resolve d 2023-10 0-16 00:00: 00 2024-08-11 00:00:00 2024-08-11 09:42:09 Memoria rod Andino Epic Urinary retention Urinary retention Disease Resolve d 2023-10 0-16 00:00: 00 2024-08-11 00:00:00 2024-08-11 09:42:17 Memoria l Sina Epic Acute hypoxemic respirator y failure Acute hypoxemic respirator y failure Disease Resolve d 2023-10 0-16 00:00: 00 2024-08-05 00:00:00 2024-08-05 20:37:17 Memoria l [place] Epic Shock (CMS/HCC) Shock (CMS/HCC) Disease Resolve d 2023-10 0-16 00:00: 00 2024-08-05 00:00:00 2024-08-05 20:40:08 Memoria rod Andino Epic Severe sepsis with septic shock (CODE) Severe sepsis with septic shock (CODE) Disease Resolve d 2023-10 0-16 00:00: 00 2024-08-05 00:00:00 2024-08-05 20:49:24 Memoria rod Andino Epic AMS (altered mental status) AMS (altered mental status) Disease Resolve d 2023-10 0-15 00:00: 00 2024-08-05 00:00:00 2024-08-05 20:26:11 Memoria rod [place] Epic Allergies, Adverse Reactions, Alerts Allergy Name Allergy Type Status Severity Reaction(s) Onset Date Inactive Date Treating Clinician Comments Source No Known Allergie s DA Active U 2023-10 2-14 00:00: 00 [facility] NKFA NKFA Active Italo Andino Social History Social Habit Start Date Stop Date Quantity Comments Source History of Tobacco Use Current Smoker [facility] Sex Assigned At [facility] Gender identity Arnaldo barbara Sina [facility] Sexual orientation [facility] [place] History of Social function 2024-08-05 00:00:00 2024-08-05 00:00:00 [facility] Smoking Status Start Date Stop Date Source Tobacco smoking consumption unknown [facility] Current Smoker 2021-09-07 00:00:00 [facility] Medications Ordered Medication Name Filled Medication Name Start Date Stop Date Current Medication? Ordering Clinician Indication Dosage Frequency Signature (SIG) Comments Components Source propranolol (Inderal) 20 MG tablet propranolol (Inderal) 20 MG tablet 2023-10 00:00: 00 08-11 23:59 :00 No 20mg Q.5D Take 1 tablet by mouth in the morning and 1 tablet in the evening. Italo Morrow tamsulosin (Flomax) 0.4 MG 24 hr capsule tamsulosin (Flomax) 0.4 MG 24 hr capsule 2023-10 00:00: 00 08-11 23:59 :00 No .4mg QD Take 1 capsule by mouth 1 time each day. Italo Morrow fentaNYL (Sublimaze) injection fentaNYL (Sublimaze) injection 2023-10 10:31: 26 08-09 11:04 :23 No Intravenou s, As needed, Starting on Thu08/09/24 at 1031, Intraproce dure Italo Morrow enoxaparin (Lovenox) syringe 40 mg enoxaparin (Lovenox) syringe 40 mg 2023-10 09:00: 00 08-30 08:59 :00 No 40mg QD 40 mg, Subcutaneo us, Daily, First dose on Thu08/09/24 at 0900, For 21 doses Italo Morrow melatonin tablet 3 mg melatonin tablet 3 mg 2023-10 23:00: 00 08-08 23:23 :00 No 3mg 3 mg, Oral, Nightly, First dose on Thu08/08/24 at 2300, For 1 dose Italo Morrow propranolol (Inderal) tablet 20 mg propranolol (Inderal) tablet 20 mg 2023-10 09:00: 00 Yes 20mg Q.5D 20 mg, Oral, 2 times daily, First dose (after last modificati on) on Thu08/08/24 at 0900, Hold for HR < 70 Italo Morrow diclofenac sodium 1 % gel 2 g diclofenac sodium 1 % gel 2 g 2023-10 13:00: 00 Yes 2g [id number] 3D 2 g, Topical, 3 times daily, First dose on Thu08/07/24 at 1300, Apply to painful area(s). R shoulder Italo Morrow acetaminoph en (Tylenol) tablet 650 mg acetaminoph en (Tylenol) tablet 650 mg 2023-10 06:13: 07 Yes 650mg Q6H 650 mg, Oral, Every 6 hours PRN, mild pain (1-3), Starting on Thu08/06/24 at 0613, Max acetaminop hen = 4000mg/day (4gm/day) Italo Morrow Refresh P.M. (mineral oil-white petrolatum) ophthalmic ointment 1 drop Refresh P.M. (mineral oil-white petrolatum) ophthalmic ointment 1 drop 2023-10 22:16: 26 Yes 1[drp] Q.5D 1 drop, Both Eyes, 2 times daily PRN, dry eyes, Starting on Thu08/05/24 at 2216 Italo Morrow oxybutynin XL (Ditropan-X L) 24 hr tablet 10 mg oxybutynin XL (Ditropan-X L) 24 hr tablet 10 mg 2023-10 09:00: 00 Yes 10mg QD 10 mg, Oral, Daily, First dose on Thu08/05/24 at 0900, Do not crush, chew, or split. Italo Morrow azithromyci n (Zithromax) tablet 500 mg azithromyci n (Zithromax) tablet 500 mg 2023-10 21:00: 00 08-04 20:27 :00 No 500mg QD 500 mg, Oral, Daily, First dose (after last modificati on) on Thu08/04/24 at 2100, For 1 dose, Suspected Indication (Select all that apply): Pneumonia Memoria l Sina Epic cefTRIAXone (Rocephin) 2 g in sterile water injection cefTRIAXone (Rocephin) 2 g in sterile water injection 2023-10 14:00: 00 08-09 10:35 :29 No 2g 2 g, Intravenou s, Administer over 5 Minutes, Every 24 hours, First dose on Thu08/04/24 at 1400, For 6 doses, Suspected Indication (Select all that apply): Pneumonia Memoria l Sina Epic HYDROcodone -acetaminop hen (Spelter) 5-325 MG per tablet 1 tablet HYDROcodone -acetaminop hen (Spelter) 5-325 MG per tablet 1 tablet 2023-10 03:15: 00 08-04 16:45 :00 No 1{tbl} 1 tablet, Oral, Once, On Thu08/04/24 at 0315, For 1 dose Italo Andino Epic sennosides (Senokot) tablet 8.6 mg sennosides (Senokot) tablet 8.6 mg 2023-10 21:00: 00 Yes 1{tbl} 8.6 mg (1 tablet), Oral, Nightly, First dose on Thu08/03/24 at 2100 Italo Andino Epic azithromyci n (Zithromax) tablet 500 mg azithromyci n (Zithromax) tablet 500 mg 2023-10 21:00: 00 08-04 10:34 :14 No 500mg QD 500 mg, Per G Tube, Daily, First dose (after last modificati on) on Thu08/03/24 at 2100, For 2 doses, Suspected Indication (Select all that apply): Pneumonia Memoria l Sina Epic oxybutynin (Ditropan) tablet 5 mg oxybutynin (Ditropan) tablet 5 mg 2023-1016 17:00: 00 08-04 16:42 :00 No 5mg Q.5D 5 mg, Oral, 2 times daily, First dose (after last modificati on) on Thu08/03/24 at 1700, For 3 doses Italo Morrow perflutren lipid microsphere s (Definity) injection 7.498 mg perflutren lipid microsphere s (Definity) injection 7.498 mg 2023-10 11:32: 01 08-03 11:32 :00 No 10uL/kg 7.498 mg (rounded from 7.6284 mg = 10 mcL/kg ?117 kg), Intravenou s, Once in imaging, Starting on Thu08/03/24 at 1132, For 1 dose, Contrast - for use by imaging provider only. Prior to administra tion or further dilution, Definity product must be activated. First, bring vial to room temperatur e. Then, shake vial for 45 seconds using Sqrl-Fritter d Vialmix apparatus. Do not use if the 45 second activation cycle has not been completed. Following activation , the product will appear as a milky white suspension and may be used immediatel y. If not used within 5 minutes of activation , re-suspend by inverting and shaking the vial for 10 seconds. Unused product must be discarded within 12 hours after activation . To administer undiluted, draw up activated product into a 3 or 5 mL syringe. If ordered as a diluted syringe, draw up 8.7 mL of preservati ve free saline into a 10 mL syringe, then slowly withdraw 1.3 mL of activated Definity into same syringe. Gently shake by hand to evenly distribute . If ordered as a diluted infusion, draw up 1.3 mL of activated Definity, then add to a 50 mL preservati ve free saline bag. Gently squeeze IV bag to evenly distribute prior to administra tion. Italo Morrow polyethylen e glycol (PEG) 3350 (Miralax) packet 17 g polyethylen e glycol (PEG) 3350 (Miralax) packet 17 g 2023-10 0 10:30: 00 Yes 17g QD 17 g, Oral, Daily, First dose on Thu08/03/24 at 1030, Dissolve 17 g in 120 to 240 mL (4 to 8 ounces) of beverage. Italo Morrow glucagon injection 1 mg glucagon injection 1 mg 2023-10 10:16: 31 Yes 1mg 1 mg, Intramuscu lar, As needed, For BG < 70 mg/dL if no IV access and patient is either Unconsciou s, unable to swallow or npo, Starting on Thu08/03/24 at 1016, For BG < 70 mg/dL if no IV access and patient is either Unconsciou s, unable to swallow or npo and notify MD. Italo Morrow dextrose 50 % solution 25 g dextrose 50 % solution 25 g 2023-10 10:16: 31 Yes 25g 25 g, Intravenou s, As needed, other, if Blood Glucose </= 50 mg/dL, Starting on Thu08/03/24 at 1016, If BG </=50 mg/dL, give 50 mL of D50W IV push STAT and notify MD. Italo Morrow dextrose 50 % solution 12.5 g dextrose 50 % solution 12.5 g 2023-10 10:16: 31 Yes 12.5g 12.5 g, Intravenou s, As needed, low blood sugar, if Blood Glucose 51- 69 mg/dL, Starting on Thu08/03/24 at 1016, For BG 51-69 mg/dL and patient UNCONSCIOU S OR UNABLE TO SWALLOW OR NPO: Give 25 mL of D50W IV push and notify MD. Italo Morrow hyoscyamine (Anaspaz) disintegrat ing tablet 125 mcg hyoscyamine (Anaspaz) disintegrat ing tablet 125 mcg 2023-10 09:59: 27 Yes 125ug Q6H 125 mcg, Sublingual , Every 6 hours PRN, cramping, Starting on Thu08/03/24 at 0959, For bladder spasms, per Urology. Italo Morrow multivitami n (Theragran- M) tablet 1 tablet multivitami n (Theragran- M) tablet 1 tablet 2023-10 09:00: 00 08-08 08:59 :00 No 1{tbl} QD 1 tablet, Oral, Daily, First dose on Thu08/03/24 at 0900, For 5 days Italo Morrow thiamine (Vitamin B-1) tablet 100 mg thiamine (Vitamin B-1) tablet 100 mg 2023-10 09:00: 00 08-07 10:05 :00 No 100mg QD 100 mg, Oral, Daily, First dose on Thu08/03/24 at 0900, For 5 days Italo Morrow folic acid (Folvite) tablet 1 mg folic acid (Folvite) tablet 1 mg 2023-10 09:00: 00 08-07 10:05 :00 No 1mg QD 1 mg, Oral, Daily, First dose on Thu08/03/24 at 0900, For 5 days Italo Morrow lansoprazol e (Prevacid) suspension 30 mg lansoprazol e (Prevacid) suspension 30 mg 2023-10 09:00: 00 08-04 10:26 :31 No 30mg QD 30 mg, Per G Tube, Daily, First dose on Thu08/03/24 at 0900, SHAKE WELL Italo Morrow chlorhexidi ne (Peridex) 0.12 % solution 15 mL chlorhexidi ne (Peridex) 0.12 % solution 15 mL 2023-10 09:00: 00 08-04 10:37 :20 No 15mL Q.25D 15 mL, Mouth/Thro at, 4 times daily, First dose on Thu08/03/24 at 0900, swish and expectorat e Italo Morrow vancomycin (Vancocin) IVPB 1.25 g vancomycin (Vancocin) IVPB 1.25 g 2023-10 08:00: 00 08-04 10:33 :28 No 1.25g Q12H 1.25 g, Intravenou s, at 166.7 mL/hr, Administer over 90 Minutes, Every 12 hours, First dose on Thu08/03/24 at 0800, premix bag, Suspected Indication (Select all that apply): Pneumonia Italo Morrow cefepime (Maxipime) 1 g in sterile water (PF) 10 mL injection cefepime (Maxipime) 1 g in sterile water (PF) 10 mL injection 2023-10 07:00: 00 08-04 10:33 :28 No 1g Q6H 1 g, Intravenou s, Administer over 5 Minutes, Every 6 hours, First dose on Thu08/03/24 at 0700, For 7 days, Suspected Indication (Select all that apply): Pneumonia Nessoria l [place] Epic norepinephr ine (Levophed) 4 mg in sodium chloride 0.9 % 250 mL (0.016 mg/mL) infusion norepinephr ine (Levophed) 4 mg in sodium chloride 0.9 % 250 mL (0.016 mg/mL) infusion 2023-10 01:45: 00 08-04 12:51 :03 No 5ug/min 5-70 mcg/min (18.75-262 .5 mL/hr), Intravenou s, Continuous , Starting on Thu08/03/24 at 0200, Infusion Type: Titrate, Initial Dose (mcg/min): 5, Titrate by (mcg/min): 2, Every (minutes): 2-5, Target Blood Pressure (mmHg): MAP 65 or above, Max Dose (mcg/min): 70 Italo Andino Epic azithromyci n (Zithromax) 500 mg in sodium chloride 0.9 % 250 mL IVPB (vial-mate) azithromyci n (Zithromax) 500 mg in sodium chloride 0.9 % 250 mL IVPB (vial-mate) 2023-10 01:00: 00 08-03 10:20 :20 No 500mg 500 mg, Intravenou s, Administer over 60 Minutes, Every 24 hours, First dose on Thu08/03/24 at 0100, For 3 days, Suspected Indication (Select all that apply): Pneumonia Memoria l [place] Epic lactated Ringer's bolus 500 mL lactated Ringer's bolus 500 mL 2023-10 00:30: 00 08-03 02:22 :00 No 500mL 500 mL, Intravenou s, at 250 mL/hr, Administer over 2 Hours, Once, On Thu08/03/24 at 0030, For 1 dose Memoria rod Andino Epic sodium chloride (NS) 0.9 % flush 10 mL sodium chloride (NS) 0.9 % flush 10 mL 2023-10 23:00: 00 Yes 10mL Q12H 10 mL, Intravenou s, Every 12 hours, First dose on Thu08/02/24 at 2300, Administer at least once every 12 hours Italo Morrow nystatin (Mycostatin ) [id number] UNIT/GM powder 1 Application nystatin (Mycostatin ) [id number] UNIT/GM powder 1 Application 2023-10 22:47: 05 Yes 1{appli cation} 1 Applicatio n, Topical, As needed, For Fungal Prophylaxi s, Starting on Thu08/02/24 at 2247, Apply to groin and intertrigi nous areas after bathing (no cornstarch baby powder). For ICU only. Italo Andino Epic sodium chloride 0.9 % infusion 250 mL sodium chloride 0.9 % infusion 250 mL 2023-10 22:47: 05 Yes 250mL 250 mL, Intravenou s, As needed, For antibiotic flush to clear line, replace bag every 24 hours., Starting on Thu08/02/24 at 2247 Italo Andino Epic sodium chloride (NS) 0.9 % flush 10 mL sodium chloride (NS) 0.9 % flush 10 mL 2023-10 22:47: 05 Yes 10mL 10 mL, Intravenou s, As needed, line care, Line Flush, Starting on Thu08/02/24 at 2247 Italo Andino Epic heparin injection 7,500 Units heparin injection 7,500 Units 2023-10 22:00: 00 08-08 07:58 :03 No 7500U [id number] 3D 7,500 Units, Subcutaneo us, Every 8 hours scheduled, First dose on Thu08/02/24 at 2200 Italo Andino Epic pantoprazol e (ProtoNix) injection 40 mg pantoprazol e (ProtoNix) injection 40 mg 2023-10 20:50: 00 08-03 06:27 :07 No 40mg QD 40 mg, Intravenou s, Administer over 2 Minutes, Every 24 hours scheduled, First dose on Thu08/02/24 at 2050, For IV push, reconstitu te with 10 mL sodium chloride 0.9% and push over at least 3-5 minutes Reconstitu te with 10 mL NS to = 4 mg/mL. Administer IV as ordered, over at least 2 minutes. Must use within 1 hour of reconstitu tion Italo Andino Epic sodium chloride 0.9 % bolus 500 mL sodium chloride 0.9 % bolus 500 mL 2023-10 19:10: 00 08-02 18:30 :00 No 500mL 500 mL, Intravenou s, at 500 mL/hr, Administer over 1 Hours, Once, On Thu08/02/24 at 1910, For 1 dose Italo Andino Epic iohexol (OMNIPaque) 350 MG/ML injection 125 mL iohexol (OMNIPaque) 350 MG/ML injection 125 mL 2023-10 18:45: 48 08-02 18:46 :00 No 125mL 125 mL, Intravenou s, Once in imaging, Starting on Thu08/02/24 at 1845, For 1 dose Italo Andino Epic iohexol (OMNIPaque) 350 MG/ML injection 60 mL iohexol (OMNIPaque) 350 MG/ML injection 60 mL 2023-10 18:42: 08 08-02 18:42 :00 No 60mL 60 mL, Intravenou s, Once in imaging, Starting on Thu08/02/24 at 1842, For 1 dose Italo Andino Epic rocuronium (ZeMuron) injection 80 mg rocuronium (ZeMuron) injection 80 mg 2023-10 18:15: 00 08-02 18:25 :00 No 1mg/kg 80 mg (1 mg/kg ?80 [facility] Intravenou s, Once, On Thu08/02/24 at 1815, For 1 dose, PARALYTIC - do not give without appropriat e mechanical ventilatio n, sedation, and analgesia. Prior to extubation , flush line or change tubing (to prevent residual medication being later flushed into a non-intuba angelito patient). Italo Andino Epic vancomycin in NS (Vancocin) 2-0.9 GM/500ML-% IVPB - Pyxis Override Pull vancomycin in NS (Vancocin) 2-0.9 GM/500ML-% IVPB - Pyxis Override Pull 2023-10 17:57: 23 08-02 20:59 :00 No Starting on Thu08/02/24 at 1757, For 1 dose, Created by cabinet override premix bag eNssoria rod Andino Epic fentaNYL Citrate (Sublimaze) 1000 MCG/20ML infusion fentaNYL Citrate (Sublimaze) 1000 MCG/20ML infusion 2023-10 16:55: 00 08-04 12:51 :03 No 50ug/h 50-200 mcg/hr (1-4 mL/hr), Intravenou s, Continuous , Starting on Thu08/02/24 at 1655, May Rebolus fentanyl 25 micrograms IV in addition to each infusion increase. Notify physician when dose of 200 microgram/ hr is reached., Infusion Type: Titrate, Initial Dose (mcg/hr): 50, Titrate by (mcg/hr): 25, Every (minutes): 15, Goal: Refer to Target Arousal RASS Score on Storyboard , Max Dose (mcg/hr): 200 Memoria l Sina Epic midazolam in NS (Versed) 50 mg/50mL infusion midazolam in NS (Versed) 50 mg/50mL infusion 2023-10 16:55: 00 08-03 11:00 :16 No 1mg/h 1-10 mg/hr (1-10 mL/hr), Intravenou s, Continuous , Starting on Thu08/02/24 at 1655, Contact physician if dose of 10 mg/hr is reached., Infusion Type: Titrate, Initial Dose (mg/hr): 1, Titrate by (mg/hr): 1, Every (minutes): 30, Goal: Refer to Target Arousal RASS Score on Storyboard , Max Dose (mg/hr): 10 Memoria l [place] Epic Isolyte-S pH 7.4 infusion 1,000 mL Isolyte-S pH 7.4 infusion 1,000 mL 2023-10 16:55: 00 08-02 17:55 :00 No 1000mL 1,000 mL, Intravenou s, Administer over 1 Hours, Once, On Thu08/02/24 at 1655, For 1 dose, Cold fluids Italo velasco Sina Morrow vancomycin in NS (Vancocin) IVPB 2,000 mg vancomycin in NS (Vancocin) IVPB 2,000 mg 2023-10 16:50: 00 08-02 20:59 :00 No 2000mg 2,000 mg, Intravenou s, at 250 mL/hr, Administer over 120 Minutes, Once, On Thu08/02/24 at 1650, For 1 dose, premix bag, Suspected Indication (Select all that apply): Suspected Sepsis Italo velasco Sina Morrow cefepime (Maxipime) 2 g in sterile water (PF) 20 mL injection cefepime (Maxipime) 2 g in sterile water (PF) 20 mL injection 2023-10 16:50: 00 08-02 21:38 :00 No 2g 2 g, Intravenou s, Administer over 4 Hours, Once, On Thu08/02/24 at 1650, For 1 dose, Reconstitu te EACH Cefepime 1 gm vial with 10 mL of sterile water for injection. Shake vigorously to dissolve. Withdraw entire content and IV push slowly over 5 minutes., Suspected Indication (Select all that apply): Suspected Sepsis Italo velasco [place] Epic fentaNYL Citrate (Sublimaze) 1000 MCG/20ML infusion - Pyxis Override Pull fentaNYL Citrate (Sublimaze) 1000 MCG/20ML infusion - Pyxis Override Pull 2023-10 16:13: 52 08-02 16:30 :00 No Starting on Thu08/02/24 at 1613, For 1 dose, Created by cabinet override Italo Andino Epic midazolam in NS (Versed) 50 mg/50mL infusion - Pyxis Override Pull midazolam in NS (Versed) 50 mg/50mL infusion - Pyxis Override Pull 2023-10 16:13: 40 08-02 16:30 :00 No Starting on Thu08/02/24 at 1613, For 1 dose, Created by cabinet override Italo Andino Epic electrolyte -R (pH 7.4) (Normosol-R PH 7.4) solution - Pyxis Override Pull electrolyte -R (pH 7.4) (Normosol-R PH 7.4) solution - Pyxis Override Pull 2023-10 16:07: 57 08-02 16:15 :00 No Starting on Thu08/02/24 at 1607, For 1 dose, Created by cabinet override Italo Andino Epic Milk of Magnesia 10-27 03:13: 00 No Colt Ross 30 mL, Route: PO, Drug Form: SUSP, Q6H, PRN Constipati on, Start date: 10/26/12 21:13:00, Duration: 30 day, Stop date: 11/25/12 21:12:00 Italo Andino Lovenox 10-26 10:00: 00 No Colt Ross 40 mg, 0.4 mL, Route: SUB-Q, Drug form: INJ, [id number], Start date: 10/26/12 4:00:00, Duration: 30 day, Stop date: 11/24/12 4:00:00 Italo Andino promethazin e + Sodium Chloride 0.9% IV 50 mL 10-26 00:01: 00 No Kinlap Jac 6.25 mg, 0.25 mL, Route: IVPB, ONCE, Dosing Weight 135.625, kg, PRN Nausea & Vomiting, Start date: 10/25/12 18:01:00 Italo Andino Lovenox 40 mg/0.4 mL subcutaneou s solution 10-25 22:00: 44 Yes Colt Ross 40mg/0.4mL , SUB-Q, Daily, 20 syr, Substituti on Allowed Italo Andino Spelter 10/325 oral tablet 10-25 22:00: 31 Yes Colt Ross 1-2 tabs, PO, Q4H, PRN, 40 tab, for pain, Substituti on Allowed, Maintenanc e, TAB Italo Andino enoxaparin 10-25 22:00: 00 No Colt Ross 40 mg, Route: SUB-Q, Q24H, Dosing Weight 135.625, kg, Start date: 10/25/12 16:00:00, Duration: 30 day, Stop date: 11/23/12 16:00:00 Nessperez rod Andino cefazolin (SCIP) 10-25 22:00: 00 No Colt Ross 2 gm, Route: IVPB, Drug form: INJ, Q8H, Dosing Weight 135.625, kg, Start date: 10/25/12 16:00:00, Duration: 3 doses or times, Stop date: 10/26/12 8:00:00 Nessperez rod Andino nalbuphine 10-25 21:51: 00 No Colt Ross 2 mg, 0.2 mL, Route: IVP, Drug form: INJ, Q2H, Dosing Weight 135.625, kg, PRN Itching, Start date: 10/25/12 15:51:00, Duration: 5 doses or times, Stop date: Limited # of times Italo Andino Lactated Ringers IV 1,000 mL 10-25 21:51: 00 No Colt Ross 1,000 mL, Rate: 125 ml/hr, Infuse over: 8 hr, Route: IV, kg, Total Volume: 1,000, Start date: 10/25/12 15:51:00, Duration: 30 day, Stop date: 11/24/12 15:50:00 Italo Andino zolpidem 10-25 21:51: 00 No Colt Ross 5 mg, 1 tab, Route: PO, Drug form: TAB, Bedtime, Dosing Weight 135.625, kg, PRN Insomnia, Start date: 10/25/12 15:51:00, Duration: 30 day, Stop date: 11/24/12 15:50:00 Italo Andino ketorolac 10-25 21:51: 00 No Colt Ross 30 mg, 1 mL, Route: IVP, Drug form: INJ, Q6H, Dosing Weight 135.625, kg, PRN Breakthrou gh Pain, Start date: 10/25/12 15:51:00, Duration: 6 doses or times, Stop date: Limited # of times Italo Andino acetaminoph en-oxycodon e 325 mg-5 mg oral tablet 10-25 21:51: 00 No Cotl C Cody 2 tab, Route: PO, Drug Form: TAB, Dosing Weight 135.625, kg, Q4H, PRN Pain Score 4-6, Start date: 10/25/12 15:51:00, Duration: 30 day, Stop date: 11/24/12 15:50:00 Nessperez rod Andino acetaminoph en 10-25 21:51: 00 No Colt Salcedoarvey 325 mg, 1 tab, Route: PO, Drug form: TAB, Q4H, Dosing Weight 135.625, kg, PRN Pain/Fever , Start date: 10/25/12 15:51:00, Duration: 30 day, Stop date: 11/24/12 15:50:00 Italo Andino albuterol 0.083% inhalation solution 10-25 18:43: 00 No Izacelestino Yoo 2.49 mg, 3 mL, Route: NEB, Drug form: SOLN, Q5Min, Dosing Weight 135.625, kg, PRN Wheezing, Priority: STAT, Start date: 10/25/12 12:43:00, Duration: 30 day, Stop date: 11/24/12 12:42:00 Italo Andino hydromorpho ne 10-25 18:43: 00 No Iza Y Fredo 0.5 mg, 0.25 mL, Route: IVP, Drug form: INJ, Q5Min, Dosing Weight 135.625, kg, PRN Pain Score 4-6, Start date: 10/25/12 12:43:00, Duration: 5 doses or times, Stop date: Limited # of times Italo Andino naloxone 10-25 13:35: 00 No Sander Tavares Sircar 0.04 mg, 0.1 mL, Route: IVP, Drug form: INJ, Q2MIN, Dosing Weight 135.625, kg, PRN Narcotic Reversal, Start date: 10/25/12 7:35:00, Duration: 8 doses or times, Stop date: Limited # of times Italo Andino morphine Sulfate 10-25 13:35: 00 No Sander Tavares Sircar 2 mg, 1 mL, Route: IVP, Drug form: INJ, Q5Min, Dosing Weight 135.625, kg, PRN Pain Score 4-6, Start date: 10/25/12 7:35:00, Duration: 8 doses or times, Stop date: Limited # of times Memoria rod Andino ondansetron 10-25 13:35: 00 No Sander Tavares Sircar 4 mg, 2 mL, Route: IVP, Drug form: INJ, ONCE, Dosing Weight 135.625, kg, PRN Nausea & Vomiting, Start date: 10/25/12 7:35:00 Memperez Andino diphenhydrA MINE 10-25 13:35: 00 No Iza Y Fredo 12.5 mg, 0.25 mL, Route: IVP, Drug form: INJ, PRN, Dosing Weight 135.625, kg, PRN Itching, Start date: 10/25/12 7:35:00, Duration: 30 day, Stop date: 11/24/12 7:34:00 Memperez Andino flumazenil 10-25 13:35: 00 No Sander Tavares Sircar 0.2 mg, 2 mL, Route: IVP, Drug form: INJ, PRN, Dosing Weight 135.625, kg, PRN Benzodiaze pine Reversal, Initial dose, Start date: 10/25/12 7:35:00, Duration: 30 day, Stop date: 11/24/12 7:34:00 Memoria rod Andino midazolam 10-25 13:35: 00 No Sander Tavraes Sircar 2 mg, 2 mL, Route: IVP, Drug form: SOLN, Q5Min, Dosing Weight 135.625, kg, PRN Anxiety, Start date: 10/25/12 7:35:00, Duration: 2 doses or times, Stop date: Limited # of times Memoria rod Andino labetalol 10-25 13:35: 00 No Sander Tavares Sircar 5 mg, 1 mL, Route: IVP, Drug form: INJ, Q5Min, Dosing Weight 135.625, kg, PRN Elevated BP, Start date: 10/25/12 7:35:00, Duration: 5 doses or times, Stop date: Limited # of times Memoria rod Andino meperidine 10-25 13:35: 00 No Sander Tavares Sircar 12.5 mg, 0.5 mL, Route: IVP, Drug form: INJ, Q30Min, Dosing Weight 135.625, kg, PRN Other -See Comment, For shivering, Start date: 10/25/12 7:35:00, Duration: 2 doses or times, Stop date: Limited # of times Nessperez rod [place] Lactated Ringers Injection IV 1,000 mL 10-25 13:35: 00 No Sander Tavares Sircar 1,000 mL, Rate: 50 ml/hr, Infuse over: 20 hr, Route: IV, kg, Total Volume: 1,000, Start date: 10/25/12 7:35:00, Duration: 30 day, Stop date: 11/24/12 7:34:00 Italo Andino dexamethaso ne 10-25 13:35: 00 No Iza Pérez Yoo 4 mg, 1 mL, Route: IVP, Drug form: INJ, ONCE, Dosing Weight 135.625, kg, PRN Nausea & Vomiting, Start date: 10/25/12 7:35:00 Italo Andino fentanyl 10-25 13:35: 00 No Iza Pérez Fredo 25 microgram, 0.5 mL, Route: IVP, Drug form: INJ, Q5Min, Dosing Weight 135.625, kg, PRN Pain Score 4-6, Start date: 10/25/12 7:35:00, Duration: 4 doses or times, Stop date: Limited # of times Italo Andino butorphanol 10-25 13:35: 00 No Iza Pérez Fredo 1 mg, 1 mL, Route: IVP, Drug form: INJ, Q10Min, Dosing Weight 135.625, kg, PRN Pain Score 7-10, Start date: 10/25/12 7:35:00, Duration: 2 doses or times, Stop date: Limited # of times Italo Andino metoprolol 10-25 13:35: 00 No Iza Pérez Yoo 1 mg, 1 mL, Route: IVP, Drug form: INJ, Q5Min, Dosing Weight 135.625, kg, PRN Elevated BP, Start date: 10/25/12 7:35:00, Duration: 5 doses or times, Stop date: Limited # of times Italo Andino cefazolin 10-25 12:30: 00 No Colt Ross 2 gm, 50 mL, Route: IVPB, Drug form: INJ, PRE OP, Start date: 10/25/12 6:30:00, Duration: 1 doses or times, Stop date: 10/25/12 20:00:00 Italo Andino Sodium Chloride 0.9% IV 10-22 20:15: 00 No Colt Kendall Cody 25 mL, Route: IV, Start date: 10/22/12 14:15:00, Duration: 30 day, Stop date: 11/21/12 14:14:00, PRN Line Flush Italo Andino BD Normal Saline Flush 10-22 20:15: 00 No Colt Ross 10 mL, Route: IV, Drug Form: INJ, PRN, PRN Line Flush, Start date: 10/22/12 14:15:00, Duration: 30 day, Stop date: 11/21/12 14:14:00 Italo Andino Celebrex 200 mg oral capsule 10-21 20:09: 36 Yes 200 mg, 1 cap, PO, BID, 30 cap, Substituti on Allowed, CAP Italo Andino metFORMIN HCl 500 MG metFORMIN HCl 500 MG No metFORMIN HCl 500 MG Albuterol Sulfate HFA 108 (90 Base) MCG/ACT Albuterol Sulfate HFA 108 (90 Base) MCG/ACT No Albuterol Sulfate HFA 108 (90 Base) MCG/ACT Celecoxib 100 MG Celecoxib 100 MG No 1{capsu le_with _food} Celecoxib 100 MG Breo Ellipta 100-25 MCG/INH Breo Ellipta 100-25 MCG/INH No 1{puff} QD Breo Ellipta 100-25 MCG/INH metFORMIN HCl 500 MG metFORMIN HCl 500 MG No metFORMIN HCl 500 MG Albuterol Sulfate HFA 108 (90 Base) MCG/ACT Albuterol Sulfate HFA 108 (90 Base) MCG/ACT No Albuterol Sulfate HFA 108 (90 Base) MCG/ACT Celecoxib 100 MG Celecoxib 100 MG No 1{capsu le_with _food} Celecoxib 100 MG Breo Ellipta 100-25 MCG/INH Breo Ellipta 100-25 MCG/INH No 1{puff} QD Breo Ellipta 100-25 MCG/INH Vital Signs Vital Name Observation Time Observation Value Comments S ource Systolic blood pressure 2024-08-11 13:00:00 97 mm[Hg] [facility] Epic Diastolic blood pressure 2024-08-11 13:00:00 62 mm[Hg] [facility] Epic Heart rate 2024-08-11 13:00:00 67 /min [facility] Body temperature 2024-08-11 13:00:00 37 Merry [facility] Epic Respiratory rate 2024-08-11 13:00:00 20 /min [facility] [place] Epic Oxygen saturation in Arterial blood by Pulse oximetry 2024-08-11 13:00:00 94 /min Ihs[facility] Epic Body height 2024-08-03 09:15:00 180.3 cm [facility] [place] Epic Body weight 2024-08-03 09:15:00 117 kg Arnaldo [facility] [place] Epic BMI 2024-08-03 09:15:00 35.99 kg/m2 [facility] Epic Systolic blood pressure 2024-08-11 13:00:00 97 mm[Hg] [facility] Epic Diastolic blood pressure 2024-08-11 13:00:00 62 mm[Hg] [facility] Epic Heart rate 2024-08-11 13:00:00 67 /min [facility] Body temperature 2024-08-11 13:00:00 37 Merry [facility] [place] Epic Respiratory rate 2024-08-11 13:00:00 20 /min [facility] [place] Epic Oxygen saturation in Arterial blood by Pulse oximetry 2024-08-11 13:00:00 94 /min Ihsan [facility] Epic Body height 2024-08-03 09:15:00 180.3 cm Arnaldo [facility] [place] Epic Body weight 2024-08-03 09:15:00 117 kg [facility] BMI 2024-08-03 09:15:00 35.99 kg/m2 [facility] [place] Epic Diastolic (mm Hg) 2012-10-28 18:26:00 [facility] Systolic (mm Hg) 2012-10-28 18:26:00 [facility] Respitory Rate 2012-10-28 18:26:00 [facility] [place] Heart Rate 2012-10-28 18:26:00 [facility] Temperature Oral (F) 2012-10-28 18:26:00 100.5 F [facility] [place] Diastolic (mm Hg) 2012-10-28 14:13:00 [facility] [place] Systolic (mm Hg) 2012-10-28 14:13:00 [facility] Respitory Rate 2012-10-28 14:13:00 [facility] Temperature Oral (F) 2012-10-28 14:13:00 100 F [facility] Heart Rate 2012-10-28 14:13:00 [facility] [place] Temperature Oral (F) 2012-10-28 10:00:00 98.7 F [facility] Heart Rate 2012-10-28 10:00:00 [facility] [place] Diastolic (mm Hg) 2012-10-28 10:00:00 [facility] [place] Respitory Rate 2012-10-28 10:00:00 [facility] Systolic (mm Hg) 2012-10-28 10:00:00 [facility] Weight 2012-10-26 01:00:00 [facility] Height 2012-10-26 01:00:00 180.34 cm [facility] Weight 2012-10-21 19:53:00 [facility] [place] Height 2012-10-21 19:53:00 181.61 cm [facility] [place] Procedures Procedure Date / Time Performed Performing Clinician Source DRAINAGE OF PERITONEAL CAVITY, PERCUTANEOUS APPROA 2024-10-10 00:00:[address] BED MOBILITY TREATMENT USING ASSIST EQUIPMENT 2024-10-09 00:00:00 [facility] TRANSFER TRAINING TREATMENT USING ASSIST EQUIPMENT 2024-10-09 00:00:00 [facility] DRESSING TECHNIQUES TREATMENT 2024-10-09 00:00:00 [facility] INSPECTION OF TRACHEOBRONCHIAL TREE, ENDO 2024-10-06 00:00:00 [facility] EXTRACTION OF LEFT MAIN BRONCHUS, ENDO, DIAGN 2024-10-06 00:00:00 [facility] EXTRACTION OF RIGHT MAIN BRONCHUS, ENDO, DIAGN 2024-10-06 00:00:00 [facility] INSERTION OF INFUSION DEV INTO R BASILIC VEIN, PER 2024-10-04 00:00:00 [facility] INSERTION OF INFUSION DEV INTO SUP VENA CAVA, PERC 2024-10-04 00:00:00 [facility] DRAINAGE OF PERITONEAL CAVITY, PERCUTANEOUS APPROA 2024-10-03 00:00:00 [facility] POCT Glucose 2024-09-02 00:00:00 [facility] Complete Blood Count w/Diff and Platelet 2024-08-17 00:00:00 [facility] Comprehensive Metabolic Panel 2024-08-17 00:00:00 [facility] Magnesium Level 2024-08-17 00:00:00 [facility] Phosphorus Level 2024-08-17 00:00:00 [facility] [place] Epic POC GLUCOSE UNSOLICITED RESULTS 2024-08-11 12:41:00 Jax Foy [facility] POC GLUCOSE UNSOLICITED RESULTS 2024-08-11 08:21:00 Jax Foy [facility] COMPLETE BLOOD COUNT W/DIFF AND PLATELET 2024-08-11 05:31:00 Gutierrez Garcia [facility] COMPLETE BLOOD COUNT 2024-08-11 05:31:00 Gutierrez Garcia [facility] Epic AUTOMATED DIFFERENTIAL 2024-08-11 05:31:00 Rosy Garcia [facility] COMPREHENSIVE METABOLIC PANEL 2024-08-11 05:31:00 Gutierrez Garcia [facility] Epic MAGNESIUM LEVEL 2024-08-11 05:31:00 Gutierrez Garcia [facility] PHOSPHORUS LEVEL 2024-08-11 05:31:00 Gutierrez Garcia [facility] POC GLUCOSE UNSOLICITED RESULTS 2024-08-10 19:57:00 Jax Foy [facility] POC GLUCOSE UNSOLICITED RESULTS 2024-08-10 11:49:00 Jax Foy [facility] POC GLUCOSE UNSOLICITED RESULTS 2024-08-10 09:23:00 Jax Foy [facility] COMPLETE BLOOD COUNT W/DIFF AND PLATELET 2024-08-10 05:57:00 Gutierrez Garcia [facility] COMPLETE BLOOD COUNT 2024-08-10 05:57:00 Gutierrez Garcia [facility] AUTOMATED DIFFERENTIAL 2024-08-10 05:57:00 Rosy Garcia [facility] COMPREHENSIVE METABOLIC PANEL 2024-08-10 05:57:00 Gutierrez Garcia [facility] MAGNESIUM LEVEL 2024-08-10 05:57:00 Gutierrez Garcia Arnaldo [facility] PHOSPHORUS LEVEL 2024-08-10 05:57:00 Gutierrez Garcia [facility] orial [facility] Hepatitis C Viral RNA Genotype, LiPA 2024-08-10 00:00:00 [facility] Testosterone, Free and Total 2024-08-10 00:00:00 [facility] POC GLUCOSE UNSOLICITED RESULTS 2024-08-09 16:14:00 Jax Foy [facility] POC GLUCOSE UNSOLICITED RESULTS 2024-08-09 12:11:00 Jax Foy [facility] COMPLETE BLOOD COUNT W/DIFF AND PLATELET 2024-08-09 04:11:00 Gutierrez Garcia [facility] COMPLETE BLOOD COUNT 2024-08-09 04:11:00 Gutierrez Garcia [facility] AUTOMATED DIFFERENTIAL 2024-08-09 04:11:00 Rosy Garcia [facility] COMPREHENSIVE METABOLIC PANEL 2024-08-09 04:11:00 Gutierrez Garcia [facility] MAGNESIUM LEVEL 2024-08-09 04:11:00 Gutierrez Garcia Arnaldo rial [facility] PHOSPHORUS LEVEL 2024-08-09 04:11:00 Gutierrez Garcia Mem [facility] Non-Gynecologic Cytology 2024-08-09 00:00:00 [facility] POC GLUCOSE UNSOLICITED RESULTS 2024-08-08 16:06:00 Jax Foy [facility] COMPLETE BLOOD COUNT W/DIFF AND PLATELET 2024-08-08 12:58:00 Sudhir Rangel [facility] PROTIME-INR 2024-08-08 12:58:[address] [facility] HEPARIN ANTIBODY BY JENNIFER W/RFLX MARANDA 2024-08-08 12:58:00 Gutierrez Garcia [facility] COMPLETE BLOOD COUNT 2024-08-08 12:58:00 Sudhir Rangel [facility] AUTOMATED DIFFERENTIAL 2024-08-08 12:58:[address] [facility] POC GLUCOSE UNSOLICITED RESULTS 2024-08-08 11:09:00 Jax Foy [facility] POC GLUCOSE UNSOLICITED RESULTS 2024-08-08 07:59:00 Tanner-Jax Pro [facility] COMPLETE BLOOD COUNT W/DIFF AND PLATELET 2024-08-08 04:23:00 Gutierrez Garcia [facility] COMPLETE BLOOD COUNT 2024-08-08 04:23:00 Gutierrez Garcia [facility] AUTOMATED DIFFERENTIAL 2024-08-08 04:23:00 Rosy Garcia ad [facility] COMPREHENSIVE METABOLIC PANEL 2024-08-08 04:23:00 Gutierrez Garcia [facility] MAGNESIUM LEVEL 2024-08-08 04:23:00 Gutierrez Garcia Memo rial [facility] PHOSPHORUS LEVEL 2024-08-08 04:23:00 Gutierrez Garcia Mem [facility] IR body biopsy lymph node 2024-08-08 00:00:00 [facility] POC GLUCOSE UNSOLICITED RESULTS 2024-08-07 20:08:00 Jax Foy [facility] POC GLUCOSE UNSOLICITED RESULTS 2024-08-07 17:08:00 Jax Foy [facility] XR HUMERUS 2 VIEWS RIGHT 2024-08-07 12:25:00 Gutierrez Garcia [facility] POC GLUCOSE UNSOLICITED RESULTS 2024-08-07 12:02:00 Tanner-Jax Pro [facility] POC GLUCOSE UNSOLICITED RESULTS 2024-08-07 08:51:00 Tanner-Jax Pro [facility] COMPLETE BLOOD COUNT W/DIFF AND PLATELET 2024-08-07 05:52:00 [facility] 2024-08-07 05:52:00 GregorKriss [facility] AUTOMATED DIFFERENTIAL 2024-08-07 05:52:00 Gregor Diony pierre [facility] COMPREHENSIVE METABOLIC PANEL 2024-08-07 05:52:00 Gregor Kriss [facility] LACTATE DEHYDROGENASE 2024-08-06 16:35:00 Margaret Garcia [facility] ACUTE HEPATITIS PANEL 2024-08-06 16:31:00 Margaret Garcia [facility] CANCER ANTIGEN 19-9 2024-08-06 16:31:00 Gutierrez Garcia [facility] HIV 4TH GEN WITH REFLEX 2024-08-06 16:31:00 Gutierrez Garcia [facility] HEPATITIS C VIRUS RNA BY PCR QUANT (AMB) 2024-08-06 16:31:00 Gutierrez Garcia [facility] HEPATITIS C ANTIBODY W/HCV RNA PCR IF INDICATED 2024-08-06 16:31:00 Gutierrez Garcia [facility] CARCINOEMBRYONIC ANTIGEN 2024-08-06 16:31:00 Gutierrez Garcia [facility] PROSTATE SPECIFIC ANTIGEN TOTAL AND FREE 2024-08-06 16:31:00 Gutierrez Garcia [facility] POC GLUCOSE UNSOLICITED RESULTS 2024-08-06 16:19:00 Jax Foy [facility] WOUND OSTOMY EVAL AND TREAT 2024-08-06 15:16:40 Gutierrez Vega [facility] POC GLUCOSE UNSOLICITED RESULTS 2024-08-06 12:54:00 Tanner-Jax Pro [facility] POC GLUCOSE UNSOLICITED RESULTS 2024-08-06 08:54:00 Tanner-Jax Pro [facility] COMPLETE BLOOD COUNT W/DIFF AND PLATELET 2024-08-06 05:32:00 [facility] 2024-08-06 05:32:00 Kriss Bundy [facility] AUTOMATED DIFFERENTIAL 2024-08-06 05:32:00 Diony Bundy [facility] COMPREHENSIVE METABOLIC PANEL 2024-08-06 05:32:00 Kriss Bundy [facility] MAGNESIUM LEVEL 2024-08-06 05:32:00 Kriss Bundy [facility] PHOSPHORUS LEVEL 2024-08-06 05:32:00 Acevedo Jamie Mary Lou [facility] POC GLUCOSE UNSOLICITED RESULTS 2024-08-05 15:47:[address] [facility] Epic POC GLUCOSE UNSOLICITED RESULTS 2024-08-05 11:33:00 Sikka Ebenezer [facility] POC GLUCOSE UNSOLICITED RESULTS 2024-08-05 07:51:00 Vince Ebenezer [facility] COMPLETE BLOOD COUNT W/DIFF AND PLATELET 2024-08-05 05:54:00 Paco Morales [facility] COMPLETE BLOOD COUNT 2024-08-05 05:54:00 Faheem Morales [facility] AUTOMATED DIFFERENTIAL 2024-08-05 05:54:00 Isaias Morales [facility] CALCIUM LEVEL IONIZED WHOLE BLOOD 2024-08-05 03:37:00 Paco Morales [facility] BASIC METABOLIC PANEL 2024-08-05 03:37:00 Claudine Morales [facility] HEPATIC FUNCTION PANEL 2024-08-05 03:37:00 Isaias Morales [facility] MAGNESIUM LEVEL 2024-08-05 03:37:00 Paco Morales [facility] PHOSPHORUS LEVEL 2024-08-05 03:37:00 Paco Morales [facility] POC GLUCOSE UNSOLICITED RESULTS 2024-08-04 23:26:00 Siladia Ebenezer [facility] POC GLUCOSE UNSOLICITED RESULTS 2024-08-04 20:09:[address] [facility] Epic POC GLUCOSE UNSOLICITED RESULTS 2024-08-04 15:42:00 Sikka [facility]zer [facility] POC GLUCOSE UNSOLICITED RESULTS 2024-08-04 12:01:00 Sikka [facility]zer [facility] POC GLUCOSE UNSOLICITED RESULTS 2024-08-04 08:33:00 Ebenezer Clarke [facility] POC GLUCOSE UNSOLICITED RESULTS 2024-08-04 03:47:00 KvngladiEebnezer tirado [facility] COMPLETE BLOOD COUNT W/DIFF AND PLATELET 2024-08-04 01:46:00 Carmen, Paco Avalos [facility] CALCIUM LEVEL IONIZED WHOLE BLOOD 2024-08-04 01:46:00 Carmen, Paco Avalos [facility] VANCOMYCIN LEVEL AUC 2024-08-04 01:46:00 KvngladiEbenezer tirado [facility] COMPLETE BLOOD COUNT 2024-08-04 01:46:00 Carmen, Faheem Avalos [facility] AUTOMATED DIFFERENTIAL 2024-08-04 01:46:00 Carmen, Isaias Avalos [facility] BASIC METABOLIC PANEL 2024-08-04 01:46:00 Carmen, Claudine Avalos [facility] HEPATIC FUNCTION PANEL 2024-08-04 01:46:00 Carmen, Isaias Avalos [facility] MAGNESIUM LEVEL 2024-08-04 01:46:00 Carmen, Paco velasco [facility] PHOSPHORUS LEVEL 2024-08-04 01:46:00 Carmen, Paco woods [facility] POC GLUCOSE UNSOLICITED RESULTS 2024-08-03 23:38:00 Ebenezer Clarke [facility] POC GLUCOSE UNSOLICITED RESULTS 2024-08-03 20:06:00 Ebenezer Clarke [facility] POC GLUCOSE UNSOLICITED RESULTS 2024-08-03 16:02:00 Ebenezer Clarke [facility] POC GLUCOSE UNSOLICITED RESULTS 2024-08-03 12:30:00 Ebenezer Clarke [facility] PROCALCITONIN LEVEL 2024-08-03 12:27:00 Paco Morales [facility] HIV 4TH GEN WITH REFLEX 2024-08-03 12:27:00 Gene Morales [facility] TRANSPLANT RESPIRATORY VIRAL PANEL [facility] 2024-08-03 12:27:00 KvngagustínEbenezer [facility] TRANSTHORACIC ECHO (TTE) COMPLETE W/ CONTRAST 2024-08-03 10:20:00 Nneka Washington [facility] POC GLUCOSE UNSOLICITED RESULTS 2024-08-03 08:08:00 KvngladiBoston tiradoEbenezer [facility] XR ABDOMEN 1 VIEW 2024-08-03 05:50:00 Paco Coy [facility] POC GLUCOSE UNSOLICITED RESULTS 2024-08-03 03:43:00 Ebenezer Clarke [facility] POC ARTERIAL BLOOD GAS AND BASIC PANEL UNSOLICITED RESULTS 2024-08-03 03:13:[address] [place] [place] P[facility] GLUCOSE UNSOLICITED RESULTS 2024-08-03 03:09:[address] [place] [place] ETHANOL LEVEL 2024-08-03 03:06:00 Mellisa Washington [facility] RESPIRATORY CULTURE W/GRAM STAIN 2024-08-03 01:28:00 Rina Rubio [facility] MRSA BY PCR 2024-08-03 01:03:00 Rina Rubio [facility] LEGIONELLA ANTIGEN, URINE 2024-08-03 01:02:00 Rina Rubio [facility] DRUG SCREEN URINE (10 DRUG) 2024-08-03 01:02:00 Rina Monsivais [facility] UA WITH CULTURE IF INDICATED 2024-08-03 01:02:00 Rina Farley [facility] Thoracentesis 2024-08-03 00:00:00 Italo velasco [facility] COMPLETE BLOOD COUNT W/DIFF AND PLATELET 2024-08-02 23:17:00 Paco Coy [facility] TROPONIN I HIGH SENSITIVITY (SINGLE ORDER) 2024-08-02 23:17:00 Aretha Griffin [facility] COMPLETE BLOOD COUNT 2024-08-02 23:17:00 Paco Edwards [facility] AUTOMATED DIFFERENTIAL 2024-08-02 23:17:00 Paco Rhodes [facility] BASIC METABOLIC PANEL 2024-08-02 23:17:00 Piper Griffin [facility] VANCOMYCIN LEVEL 2024-08-02 23:17:00 Paco Coy [facility] MAGNESIUM LEVEL 2024-08-02 23:17:00 Davin Coy [facility] PHOSPHORUS LEVEL 2024-08-02 23:17:00 Paco Coy [facility] POC ARTERIAL BLOOD GAS AND BASIC PANEL UNSOLICITED RESULTS 2024-08-02 23:03:00 VinceEbenezer [facility] POC GLUCOSE UNSOLICITED RESULTS 2024-08-02 22:57:00 VinceBostonEbenezer [facility] INFLUENZA A/B ANTIGENS 2024-08-02 20:01:00 Venus Griffin [facility] CORONAVIRUS (COVID-19) RAKESH 2024-08-02 20:01:00 Aretha Griffin [facility] CT ABDOMEN PELVIS W IV CONTRAST 2024-08-02 18:45:00 Aretha Griffin [facility] CT ANGIOGRAM CHEST PULMONARY EMBOLISM 2024-08-02 18:45:00 Aretha Griffin [facility] CT ANGIOGRAM BRAIN NECK 2024-08-02 18:41:00 Cedric Griffin [facility] CT BRAIN WO IV CONTRAST 2024-08-02 18:41:00 Cedric Griffin [facility] TROPONIN I HIGH SENSITIVITY CARESET (1ST HR) 2024-08-02 18:12:00 Aretha Griffin [facility] BLOOD CULTURE 2024-08-02 17:34:00 Aretha Griffin [facility] TYPE AND SCREEN 2024-08-02 17:34:00 Aretha Griffin [facility] ECG 12-LEAD 2024-08-02 17:03:14 Aretha Griffin [facility] PROTIME-INR 2024-08-02 16:50:00 Aretha Griffin [facility] PTT 2024-08-02 16:50:00 Aretha Griffin [facility] THYROID STIMULATING HORMONE W/ REFLEX FREE T4 2024-08-02 16:50:00 Aretha Griffin [facility] TROPONIN I HIGH SENSITIVITY CARESET 2024-08-02 16:50:00 Aretha rGiffin [facility] THROMBOELASTOGRAPH RAPID 2024-08-02 16:50:00 Grecia Griffin [facility] TROPONIN I HIGH SENSITIVITY CARESET (BASELINE) 2024-08-02 16:50:00 Aretha Griffin [facility] LACTIC ACID WITH 2 HOUR REFLEX 2024-08-02 16:50:00 Aretha Griffin [facility] COMPLETE BLOOD COUNT 2024-08-02 16:50:00 Blanca Griffin [facility] AUTOMATED DIFFERENTIAL 2024-08-02 16:50:00 Venus Griffin [facility] BASIC METABOLIC PANEL 2024-08-02 16:50:00 Piper Griffin [facility] HEPATIC FUNCTION PANEL 2024-08-02 16:50:00 Venus Griffin [facility] AMMONIA LEVEL 2024-08-02 16:50:00 Aretha Griffin [facility] CREATINE KINASE (CK TOTAL) 2024-08-02 16:50:00 Aretha Griffin [facility] BLOOD GAS, VENOUS 2024-08-02 16:50:00 Aretha Griffin [facility] LIPASE LEVEL 2024-08-02 16:50:00 Aretha Griffin [facility] MAGNESIUM LEVEL 2024-08-02 16:50:00 Aretha Griffin [facility] B-TYPE NATRIURETIC PEPTIDE 2024-08-02 16:50:00 Aretha Griffin [facility] PHOSPHORUS LEVEL 2024-08-02 16:50:00 Aretha Griffin [facility] COMPLETE BLOOD COUNT W/DIFF AND PLATELET 2024-08-02 16:50:00 Aretha Griffin [facility] XR CHEST 1 VIEW 2024-08-02 16:42:40 Aretha Griffin [facility] Arterial Line 2024-08-02 16:01:00 Rachelle Oliveira [facility] Blood gas, arterial 2024-08-02 00:00:00 Janet [facility] Oxygen Therapy - Patient Type: Adult; Device: Nasal Cannula; Rate in liters per minute: 4 Lpm; Follow Respiratory Pathway: Yes Ihsan connor Epic Amputation of finger tip <sup>1</sup> [facility] Hip replacement <sup>2</sup> [facility] Nasal operation <sup>3</sup> Ihsan Andino Encounters Start Date/Time End Date/Time Encounter Type Admission Type Attending [facility] Care Facility Care Department Encounter ID Source 2022-09-02 17:22:26 Outpatient [facility] [id number] [facility] 2022-02-03 13:19:01 Outpatient Jaquan Acevedo [facility] [id number] [facility] 2021-11-13 13:21:23 Outpatient Derick Gavin [facility] [id number] [facility] 2024-10-01 01:06:00 2024-10-15 19:55:00 Inpatient EM Luisa Vincent [facility] [id number] [facility] 2024-08-22 00:00:00 2024-08-22 11:29:17 Patient Outreach [facility] [id number] [id number] [facility] 2024-08-15 00:00:00 2024-08-15 14:53:56 Patient Outreach [facility] [id number] [facility] 2024-08-12 00:00:00 2024-08-12 16:58:53 Patient Outreach [facility] [id number] [id number] [facility] 2024-08-02 16:01:00 2024-08-11 16:46:00 Hospital Encounter Griffin, Aretha Thea Ebenezer Clarke Lauren Elizabeth [facility] [id number] [id number] [id number] Italo Andino [facility] 2024-08-02 16:01:00 2024-08-11 16:46:00 Inpatient Trauma Center [facility] General Medicine [id number] [facility] 2024-08-02 17:03:42 2024-08-02 23:59:00 Hospital Encounter Services[facility] 1.2.840.114 [id number] [id number] [id number] [facility] 2024-08-02 17:03:42 2024-08-02 23:59:00 Outpatient [facility] [id number] [facility] 2022-07-28 00:00:00 2022-07-28 00:00:00 (TEL) STLMLC STLMLC [id number] [facility] 2022-07-11 15:39:00 2022-07-11 15:39:00 Outpatient Jasmyn Sanders [facility] [id number] [facility] 2022 00:00:00 2022 00:00:00 Outpatient Thomas_T [facility] [id number] [facility] 2022-05-02 03:27:00 2022-05-02 03:27:00 [place] [id number] [facility] 2022-04-15 05:23:00 2022-04-15 05:23:00 Outpatient GAYLORD_S [facility]G [id number] [facility] 2021-10-29 11:00:00 2021-10-29 11:00:00 Outpatient DMG DMG [id number] [facility] 2021-09-09 00:00:00 2021-09-09 00:00:00 (TEL) STLMLC STLMLC [id number] [facility] 2021-07-09 00:00:00 2021-07-09 00:00:00 Outpatient STLMLC STLMLC [id number] [facility] 2021-07-09 00:00:00 2021-07-09 00:00:00 Outpatient STLMLC STLMLC [id number] [facility] 2021-04-17 00:00:00 2021-04-17 00:00:00 Outpatient STLMLC STLMLC [id number] [facility] 2021-03-01 11:00:00 2021-03-01 11:00:00 [place] [id number] [facility] Results Test Description Test Time Test Comments Results Result Co mments Source PARATHYROID HORMONE [id number] 05:08:00* Test Item Value Reference Range Interpretation Comme [facility] PARATHYROID HORMONE INTACT (test code = PARAI) 38 pg/mL 15-65 Performed At: [facility] [address] [id number] Regino Velasco MD Ph:[phone] BASIC METABOLIC [id number] 06:20:00* Test Item Value Reference Range Interpretation Comme nts SODIUM (test code = NA) 138 mmol/L 136-145 N POTASSIUM (test code = K) 3.9 mmol/L 3.5-5.1 N CHLORIDE (test code = CL) 100 mmol/L 98-107 N CARBON DIOXIDE (test code = CO2) 37.0 mmol/L 20.0-31.0 H ANION GAP (test code = GAP) 4.5 0-20 N GLUCOSE (test code = GLU) 111 mg/dL 74-106 H BLOOD UREA NITROGEN (test code = BUN) 18 mg/dL 9-23 N GLOMERULAR FILTRATION RATE (test code = GFR) 99 mL/min The Glomerular Filtration Rate is a calculated parameterbased on serum Creatinine, patient age and sex. GFR valuesless than 60 mL/min/1.73 square meters are indicative ofChronic Kidney Disease. Values less than 15 mL/min/1.73square meters indicate Kidney failure. The calculation forGFR is based on the CKD-EPI (2020) calculation. This formulais race indifferent and is the recommended formula for GFRby the National Kidney Foundation for Adults.The GFR will not calculate if the sex is unknown or if thepatient's age is <18 years. CREATININE (test code = CREAT) 0.72 mg/dL 0.60-1.30 N CALCIUM (test code = CA) 7.8 mg/dL 8.7-10.4 L CBC W/AUTO [id number] 06:13:00* Test Item Value Reference Range Interpretation Comme nts WHITE BLOOD CELL (test code = WBC) 6.6 K/mm3 4.5-11.0 N RED BLOOD CELL (test code = RBC) 3.67 M/mm3 4.40-5.90 L HEMOGLOBIN (test code = HGB) 11.5 gm/dL 13.0-17.0 L HEMATOCRIT (test code = HCT) 35.2 % 36.0-48.0 L MEAN CELL VOLUME (test code = MCV) 95.9 UM3 80.0-94.0 H MEAN CELL HGB (test code = MCH) 31.3 UUG 25.5-32.5 N MEAN CELL HGB CONCETRATION (test code = MCHC) 32.7 gm/dL 29.0-35.5 N RED CELL DISTRIBUTION WIDTH (test code = RDW) 16.9 % 11.5-15.0 H RED CELL DISTRIBUTION WIDTH SD (test code = RDW-SD) 59.3 fL 34.8-50.2 H PLATELET COUNT (test code = PLT) 217 K/mm3 150-400 N MEAN PLATELET VOLUME (test c ode = MPV) 9.6 fl 7.4-10.4 N NEUTROPHIL % (test code = NT%) 64.1 % 49.0-76.0 N IMMATURE GRANULOCYTE % (test code = IG%) 2.6 % 0.0-0.4 H LYMPHOCYTE % (test code = LY%) 17.4 % 23.0-38.0 L MONOCYTE % (test code = MO%) 11.2 % 1.0-10.0 H EOSINOPHIL % (test code = EO%) 3.6 % 1.0-5.0 N BASOPHIL % (test code = BA%) 1.1 % 0.0-1.0 H NUCLEATED RBC % (test code = NRBC%) 0.0 % 0.0-0.1 N NEUTROPHIL # (test code = NT#) 4.2 K/mm3 2.4-6.3 N IMMATURE GRANULOCYTE # (test code = IG#) 0.17 x10 3/uL 0.00-0.07 H LYMPHOCYTE # (test code = LY#) 1.2 K/mm3 1.2-4.0 N MONOCYTE # (test code = MO#) 0.7 K/mm3 0.0-0.6 H EOSINOPHIL # (test code = EO#) 0.2 K/MM3 0.0-0.7 N BASOPHIL # (test code = BA#) 0.1 K/mm3 0.0-0.2 N NUCLEATED RBC # (test code = NRBC#) 0.00 X10 3uL 0.00-0.01 N [id number] 01:23:00* Test Item Value Reference Range Interpretation Comme nts GLUBED (test code = GLUBED) 108 mg/dL 70-[address] F[address] [id number] 15:04:00* Test Item Value Reference Range Interpretation Comme nts PERITONEAL FLD COLOR (test c ode = COLPT) STRAW PERITONEAL FLD APPEARANCE (t est code = APPPT) HAZY PERITONEAL FLD WBC (test cod e = WBCPT) 637 MM3 0-300 H PERITONEAL FLD RBC (test cod e = RBCPT) 7000 MM3 0-0 PERITONEAL FLD POLY (test co de = POLYPT) 6 % PERITONEAL FLD LYMPHOCYTE (t est code = LYMPHPT) 60 % PERITONEAL FLD MONOCYTE (sushil t code = MONOPT) 3 % PERITONEAL FLD HISTIOCYTE (t est code = HISTPT) 25 % PERITONEAL FLD MESOTHELIAL ( test code = MESPT) 6 % TOTAL CELLS COUNTED ON DIFF (test code = TOTCELLFL) 100 Specimen comments: ASCITIESCYTOLOGY NON [id number] 12:06:00* Test Item Value Reference Range Interpretation Comme nts CYTOLOGY NON WELDER PLASMA ARC (test code = CR) R UN DATE: 10/10/24 [facility] - Lab PAGE 1 RUN TIME: 1207 Specimen Inquiry RUN USER: INTERFACE P ATIENT: ABAD HARRINGTON LOC: [facility] U #: [id number] AGE/SX: 69/M ROOM: [facility] RE10/01/24REG DR: Luisa Vincent MD : 55 BED: 1 DIS: STATUS: ADM IN TLOC: SPEC #: [id number] RECD: 10/07/24-1356 STATUS: SOUT REQ #: [id number] DANA: 10/06/24- SUBM DR: Fawad Jacobo MD ENTERED: 10/07/24-1356 SP TYPE: CYTO NGYN OTHR DR: Self Referred Arsh Tamez MD, Tamer MD Malhotra, Advitya MD Undefined ProviderORDERED: [id number], GM LEVEL 4, ANATOMIC SPEC COPIES TO: Self Referred Arsh Tamez MD [address] [place] [id number] Hiro Hoang MD [address] [place] [address], [place] [address] Maria Luz Veloz MD [address] [place] [address] OTHER PHONE [phone] (CELL) Fawad Jacobo MD [address] [place] [address] Undefined Provider PROCEDURES: [id number] (10/07/24-1356) GM LEVEL 4 (10/07/24) TISSUES: A. BRONCHIAL WASHING (CYTOSPIN) CONTINUED ON NEXT PAGE R UN DATE: 10/10/24 [place] - Lab PAGE 2 RUN TIME: 1207 Specimen Inquiry RUN USER: INTERFACE S PEC #: [id number] PATIENT: ABAD HARRINGTON #[id number] (Continued) CLINICAL HISTORY SAME FINAL DIAGNOSIS Bronchial washings, NOS, cytology (cytospin and cell block): - No malignant cells identified. GROSS DESCRIPTION Received without fixative labeled "bronchial washing" is 20 cc clear body fluid, processedfor cytospin and cell block for cytology evaluation. Professional and Technical component performed [facility]ly [facility],[address] [place] [address], [place], [place] [address], [place] [address] Unless gross only, the diagnosis is based upon microscopic examination.Immunohistochemistr y: This test was developed and its performance characteristicsdetermined by this laboratory. It has not been approved nor does it need approvalby the [place] FDA. Appropriate positive and negative controls are reviewed and judgedto be acceptable for performed immunohistochemistry and/or special stains. This laboratoryis certified under the Clinical Laboratory Improvement Amendments (CLIA-88) as qualified toperform high complexity clinical laboratory testing. CLINICAL INFORMATION ASPIRATION PNEUMONIA -------- Signed SIGNATURE ON FILE Juani Franco 10/10/24 1206 END OF REPORT BASIC METABOLIC [id number] 05:22:00* Test Item Value Reference Range Interpretation Comme nts SODIUM (test code = NA) 135 mmol/L 136-145 L POTASSIUM (test code = K) 3.9 mmol/L 3.5-5.1 N CHLORIDE (test code = CL) 97 mmol/L 98-107 L CARBON DIOXIDE (test code = CO2) 38.0 mmol/L 20.0-31.0 H ANION GAP (test code = GAP) 4.2 0-20 N GLUCOSE (test code = GLU) 118 mg/dL 74-106 H BLOOD UREA NITROGEN (test code = BUN) 16 mg/dL 9-23 N GLOMERULAR FILTRATION RATE (test code = GFR) 100 mL/min The Glomerular Filtration Rate is a calculated parameterbased on serum Creatinine, patient age and sex. GFR valuesless than 60 mL/min/1.73 square meters are indicative ofChronic Kidney Disease. Values less than 15 mL/min/1.73square meters indicate Kidney failure. The calculation forGFR is based on the CKD-EPI (202) calculation. This formulais race indifferent and is the recommended formula for GFRby the National Kidney Foundation for Adults.The GFR will not calculate if the sex is unknown or if thepatient's age is <18 years. CREATININE (test code = CREAT) 0.69 mg/dL 0.60-1.30 N CALCIUM (test code = CA) 8.1 mg/dL 8.7-10.4 L CBC W/AUTO [id number] 05:14:00* Test Item Value Reference Range Interpretation Comme nts WHITE BLOOD CELL (test code = WBC) 7.2 K/mm3 4.5-11.0 N RED BLOOD CELL (test code = RBC) 3.77 M/mm3 4.40-5.90 L HEMOGLOBIN (test code = HGB) 11.7 gm/dL 13.0-17.0 L HEMATOCRIT (test code = HCT) 35.7 % 36.0-48.0 L MEAN CELL VOLUME (test code = MCV) 94.7 UM3 80.0-94.0 H MEAN CELL HGB (test code = MCH) 31.0 UUG 25.5-32.5 N MEAN CELL HGB CONCETRATION (test code = MCHC) 32.8 gm/dL 29.0-35.5 N RED CELL DISTRIBUTION WIDTH (test code = RDW) 16.7 % 11.5-15.0 H RED CELL DISTRIBUTION WIDTH SD (test code = RDW-SD) 57.1 fL 34.8-50.2 H PLATELET COUNT (test code = PLT) 213 K/mm3 150-400 N MEAN PLATELET VOLUME (test c ode = MPV) 9.1 fl 7.4-10.4 N NEUTROPHIL % (test code = NT%) 65.8 % 49.0-76.0 N IMMATURE GRANULOCYTE % (test code = IG%) 3.2 % 0.0-0.4 H LYMPHOCYTE % (test code = LY%) 16.6 % 23.0-38.0 L MONOCYTE % (test code = MO%) 10.3 % 1.0-10.0 H EOSINOPHIL % (test code = EO%) 3.1 % 1.0-5.0 N BASOPHIL % (test code = BA%) 1.0 % 0.0-1.0 N NUCLEATED RBC % (test code = NRBC%) 0.0 % 0.0-0.1 N NEUTROPHIL # (test code = NT#) 4.7 K/mm3 2.4-6.3 N IMMATURE GRANULOCYTE # (test code = IG#) 0.23 x10 3/uL 0.00-0.07 H LYMPHOCYTE # (test code = LY#) 1.2 K/mm3 1.2-4.0 N MONOCYTE # (test code = MO#) 0.7 K/mm3 0.0-0.6 H EOSINOPHIL # (test code = EO#) 0.2 K/MM3 0.0-0.7 N BASOPHIL # (test code = BA#) 0.1 K/mm3 0.0-0.2 N NUCLEATED RBC # (test code = NRBC#) 0.00 X10 3uL 0.00-0.01 N [id number] 19:11:00* Test Item Value Reference Range Interpretation Comme nts GLUBED (test code = GLUBED) 149 mg/dL 70-110 H [id number] 16:28:00* Test Item Value Reference Range Interpretation Comme nts GLUBED (test code = GLUBED) 130 mg/dL 70-110 H [id number] 11:35:00* Test Item Value Reference Range Interpretation Comme nts GLUBED (test code = GLUBED) 104 mg/dL 70-110 N [id number] 19:24:00* Test Item Value Reference Range Interpretation Comme nts GLUBED (test code = GLUBED) 164 mg/dL 70-110 H [id number] 16:13:00* Test Item Value Reference Range Interpretation Comme nts GLUBED (test code = GLUBED) 136 mg/dL 70-110 H [id number] 16:39:00* Test Item Value Reference Range Interpretation Comme nts GLUBED (test code = GLUBED) 136 mg/dL 70-110 H [id number] 12:04:00* Test Item Value Reference Range Interpretation Comme nts GLUBED (test code = GLUBED) 135 mg/dL 70-110 H [id number] 08:00:00* Test Item Value Reference Range Interpretation Comme nts GLUBED (test code = GLUBED) 98 mg/dL 70-110 N BASIC METABOLIC [id number] 05:28:00* Test Item Value Reference Range Interpretation Comme nts SODIUM (test code = NA) 143 mmol/L 136-145 N POTASSIUM (test code = K) 3.8 mmol/L 3.5-5.1 N CHLORIDE (test code = CL) 103 mmol/L 98-107 N CARBON DIOXIDE (test code = CO2) >40 mmol/L 20.0-31.0 HH GLUCOSE (test code = GLU) 110 mg/dL 74-106 H BLOOD UREA NITROGEN (test code = BUN) 15 mg/dL 9-23 N GLOMERULAR FILTRATION RATE (test code = GFR) 101 mL/min The Glomerular Filtration Rate is a calculated parameterbased on serum Creatinine, patient age and sex. GFR valuesless than 60 mL/min/1.73 square meters are indicative ofChronic Kidney Disease. Values less than 15 mL/min/1.73square meters indicate Kidney failure. The calculation forGFR is based on the CKD-EPI (2020) calculation. This formulais race indifferent and is the recommended formula for GFRby the National Kidney Foundation for Adults.The GFR will not calculate if the sex is unknown or if thepatient's age is <18 years. CREATININE (test code = CREAT) 0.67 mg/dL 0.60-1.30 N ESTIMATED CREAT CLEARANCE (test code = ECRCL) 107 mL/min >30 CALCIUM (test code = CA) 7.9 mg/dL 8.7-10.4 L [id number] 05:21:00* Test Item Value Reference Range Interpretation Comme nts AMMONIA (test code = AMM) 32 umol/L 11.0-32.0 N CBC W/AUTO [id number] 05:05:00* Test Item Value Reference Range Interpretation Comme nts WHITE BLOOD CELL (test code = WBC) 5.8 K/mm3 4.5-11.0 N RED BLOOD CELL (test code = RBC) 3.87 M/mm3 4.40-5.90 L HEMOGLOBIN (test code = HGB) 12.0 gm/dL 13.0-17.0 L HEMATOCRIT (test code = HCT) 37.7 % 36.0-48.0 N MEAN CELL VOLUME (test code = MCV) 97.4 UM3 80.0-94.0 H MEAN CELL HGB (test code = MCH) 31.0 UUG 25.5-32.5 N MEAN CELL HGB CONCETRATION (test code = MCHC) 31.8 gm/dL 29.0-35.5 N RED CELL DISTRIBUTION WIDTH (test code = RDW) 17.0 % 11.5-15.0 H RED CELL DISTRIBUTION WIDTH SD (test code = RDW-SD) 61.2 fL 34.8-50.2 H PLATELET COUNT (test code = PLT) 182 K/mm3 150-400 N MEAN PLATELET VOLUME (test c ode = MPV) 9.4 fl 7.4-10.4 N NEUTROPHIL % (test code = NT%) 57.2 % 49.0-76.0 N IMMATURE GRANULOCYTE % (test code = IG%) 3.7 % 0.0-0.4 H LYMPHOCYTE % (test code = LY%) 20.5 % 23.0-38.0 L MONOCYTE % (test code = MO%) 9.6 % 1.0-10.0 N EOSINOPHIL % (test code = EO%) 8.0 % 1.0-5.0 H BASOPHIL % (test code = BA%) 1.0 % 0.0-1.0 N NUCLEATED RBC % (test code = NRBC%) 0.0 % 0.0-0.1 N NEUTROPHIL # (test code = NT#) 3.3 K/mm3 2.4-6.3 N IMMATURE GRANULOCYTE # (test code = IG#) 0.21 x10 3/uL 0.00-0.07 H LYMPHOCYTE # (test code = LY#) 1.2 K/mm3 1.2-4.0 N MONOCYTE # (test code = MO#) 0.6 K/mm3 0.0-0.6 N EOSINOPHIL # (test code = EO#) 0.5 K/MM3 0.0-0.7 N BASOPHIL # (test code = BA#) 0.1 K/mm3 0.0-0.2 N NUCLEATED RBC # (test code = NRBC#) 0.00 X10 3uL 0.00-0.01 N [id number] 22:57:00* Test Item Value Reference Range Interpretation Comme nts GLUBED (test code = GLUBED) 130 mg/dL 70-110 H [id number] 16:49:00* Test Item Value Reference Range Interpretation Comme nts GLUBED (test code = GLUBED) 102 mg/dL 70-110 N BASIC METABOLIC [id number] 14:22:00* Test Item Value Reference Range Interpretation Comme nts SODIUM (test code = NA) 144 mmol/L 136-145 N POTASSIUM (test code = K) 3.5 mmol/L 3.5-5.1 N CHLORIDE (test code = CL) 101 mmol/L 98-107 N CARBON DIOXIDE (test code = CO2) >40 mmol/L 20.0-31.0 HH ANION GAP (test code = GAP) 0-20 GLUCOSE (test code = GLU) 113 mg/dL 74-106 H BLOOD UREA NITROGEN (test code = BUN) 14 mg/dL 9-23 N GLOMERULAR FILTRATION RATE (test code = GFR) 104 mL/min The Glomerular Filtration Rate is a calculated parameterbased on serum Creatinine, patient age and sex. GFR valuesless than 60 mL/min/1.73 square meters are indicative ofChronic Kidney Disease. Values less than 15 mL/min/1.73square meters indicate Kidney failure. The calculation forGFR is based on the CKD-EPI (202) calculation. This formulais race indifferent and is the recommended formula for GFRby the National Kidney Foundation for Adults.The GFR will not calculate if the sex is unknown or if thepatient's age is <18 years. CREATININE (test code = CREAT) 0.60 mg/dL 0.60-1.30 N CALCIUM (test code = CA) 8.1 mg/dL 8.7-10.4 L ESTIMATED CREAT CLEARANCE (test code = ECRCL) 120 mL/min >30 [id number] 11:37:00* Test Item Value Reference Range Interpretation Comme nts GLUBED (test code = GLUBED) 128 mg/dL 70-110 H [id number] 08:03:00* Test Item Value Reference Range Interpretation Comme nts GLUBED (test code = GLUBED) 136 mg/dL 70-110 H ARTERIAL BLOOD [id number] 06:35:00* Test Item Value Reference Range Interpretation Comme nts ARTERIAL BLOOD GAS PH (test code = PHA) 7.479 7.350-7.450 H ARTERIAL BLOOD GAS PCO2 (test code = PCO2A) 55.5 mmHg 35.0-45.0 H ARTERIAL BLOOD GAS PO2 (test code = PO2A) 83.8 mmHg See_Comment [Automated message] The system which generated this result transmitted reference range: 80.0. The reference range was not used to interpret this result as normal/abnormal. BICARBONATE TOTAL HCO3 (test code = HCO3) 40.3 MMOL/L 22.0-26.0 H BASE EXCESS (test code = JAS) 14.5 MMOL/L -4.0-4.0 H ABG O2 SATURATION (test code = SATA) 96.6 % 92.0-99.0 N FIO2 (test code = FIO2A) 52.0 % ABG SITE (test code = SITEA) RB ALLENS TEST (test code = ALLENS) Yes TOTAL HGB (test code = THB) 12.3 g/dL 12.0-16.0 N CARBOXYHEMOGLOBIN (test code = HOHGBT) 0.8 % THgb 0.0-1.5 N METHEMOGLOBIN (test code = METHGB) 0.2 % 0.0-1.5 N NORMAL <2.0POTENTIALLY TOXIC >20.0 AB HEPATITIS B [id number] 04:07:00* Test Item Value Reference Range Interpretation Comme [facility] AB HEPATITIS B SURFACE (test code = HBSAB) 8.5 mIU/mL See_Comment A Status of Immuni ty Anti-HBs Level Inconsis tent with Immunity 0.0 - 10.0Consistent with Immunity >10.0Performed At: [facility] [address] [id number] Regino Velasco MD Ph:[phone] [Automated message] The system which generated this result transmitted reference range: Immunity>10. The reference range was not used to interpret this result as normal/abnormal. [id number] 20:25:00* Test Item Value Reference Range Interpretation Comme nts GLUBED (test code = GLUBED) 156 mg/dL 70-110 H [id number] 16:25:00* Test Item Value Reference Range Interpretation Comme nts GLUBED (test code = GLUBED) 142 mg/dL 70-110 H [id number] 11:20:00* Test Item Value Reference Range Interpretation Comme nts GLUBED (test code = GLUBED) 150 mg/dL 70-110 H ARTERIAL BLOOD [id number] 09:27:00* Test Item Value Reference Range Interpretation Comme nts ARTERIAL BLOOD GAS PH (test code = PHA) 7.488 7.350-7.450 H ARTERIAL BLOOD GAS PCO2 (test code = PCO2A) 48.7 mmHg 35.0-45.0 H ARTERIAL BLOOD GAS PO2 (test code = PO2A) 67.6 mmHg See_Comment L [Automated message] The system which generated this result transmitted reference range: 80.0. The reference range was not used to interpret this result as normal/abnormal. BICARBONATE TOTAL HCO3 (test code = HCO3) 36.1 MMOL/L 22.0-26.0 H BASE EXCESS (test code = JAS) 11.2 MMOL/L -4.0-4.0 H ABG O2 SATURATION (test code = SATA) 93.6 % 92.0-99.0 N FIO2 (test code = FIO2A) 36.0 % ABG SITE (test code = SITEA) LR ALLENS TEST (test code = ALLENS) Unable TOTAL HGB (test code = THB) 12.2 g/dL 12.0-16.0 N CARBOXYHEMOGLOBIN (test code = HOHGBT) 1.0 % THgb 0.0-1.5 N METHEMOGLOBIN (test code = METHGB) 0.2 % 0.0-1.5 N NORMAL <2.0POTENTIALLY TOXIC >20.0 [id number] 04:29:00* Test Item Value Reference Range Interpretation Comme nts AMMONIA (test code = AMM) 36 umol/L 11.0-32.0 HH CBC W/AUTO [id number] 04:23:00* Test Item Value Reference Range Interpretation Comme nts WHITE BLOOD CELL (test code = WBC) 6.0 K/mm3 4.5-11.0 N RED BLOOD CELL (test code = RBC) 3.78 M/mm3 4.40-5.90 L HEMOGLOBIN (test code = HGB) 11.8 gm/dL 13.0-17.0 L HEMATOCRIT (test code = HCT) 35.9 % 36.0-48.0 L MEAN CELL VOLUME (test code = MCV) 95.0 UM3 80.0-94.0 H MEAN CELL HGB (test code = MCH) 31.2 UUG 25.5-32.5 N MEAN CELL HGB CONCETRATION (test code = MCHC) 32.9 gm/dL 29.0-35.5 N RED CELL DISTRIBUTION WIDTH (test code = RDW) 16.6 % 11.5-15.0 H RED CELL DISTRIBUTION WIDTH SD (test code = RDW-SD) 59.2 fL 34.8-50.2 H PLATELET COUNT (test code = PLT) 173 K/mm3 150-400 N MEAN PLATELET VOLUME (test c ode = MPV) 8.9 fl 7.4-10.4 N NEUTROPHIL % (test code = NT%) 59.5 % 49.0-76.0 N IMMATURE GRANULOCYTE % (test code = IG%) 3.4 % 0.0-0.4 H LYMPHOCYTE % (test code = LY%) 20.5 % 23.0-38.0 L MONOCYTE % (test code = MO%) 13.9 % 1.0-10.0 H EOSINOPHIL % (test code = EO%) 2.4 % 1.0-5.0 N BASOPHIL % (test code = BA%) 0.3 % 0.0-1.0 N NEUTROPHIL # (test code = NT#) 3.5 K/mm3 2.4-6.3 N IMMATURE GRANULOCYTE # (test code = IG#) 0.20 x10 3/uL 0.00-0.07 H LYMPHOCYTE # (test code = LY#) 1.2 K/mm3 1.2-4.0 N MONOCYTE # (test code = MO#) 0.8 K/mm3 0.0-0.6 H EOSINOPHIL # (test code = EO#) 0.1 K/MM3 0.0-0.7 N BASOPHIL # (test code = BA#) 0.0 K/mm3 0.0-0.2 N BASIC METABOLIC [id number] 04:21:00* Test Item Value Reference Range Interpretation Comme nts SODIUM (test code = NA) 141 mmol/L 136-145 N POTASSIUM (test code = K) 3.3 mmol/L 3.5-5.1 L CHLORIDE (test code = CL) 101 mmol/L 98-107 N CARBON DIOXIDE (test code = CO2) 39.0 mmol/L 20.0-31.0 H ANION GAP (test code = GAP) 4.3 0-20 N GLUCOSE (test code = GLU) 153 mg/dL 74-106 H BLOOD UREA NITROGEN (test code = BUN) 14 mg/dL 9-23 N GLOMERULAR FILTRATION RATE (test code = GFR) 98 mL/min The Glomerular Filtration Rate is a calculated parameterbased on serum Creatinine, patient age and sex. GFR valuesless than 60 mL/min/1.73 square meters are indicative ofChronic Kidney Disease. Values less than 15 mL/min/1.73square meters indicate Kidney failure. The calculation forGFR is based on the CKD-EPI (2020) calculation. This formulais race indifferent and is the recommended formula for GFRby the National Kidney Foundation for Adults.The GFR will not calculate if the sex is unknown or if thepatient's age is <18 years. CREATININE (test code = CREAT) 0.75 mg/dL 0.60-1.30 N CALCIUM (test code = CA) 8.1 mg/dL 8.7-10.4 L ESTIMATED CREAT CLEARANCE (test code = ECRCL) 96 mL/min >30 [id number] 20:20:00* Test Item Value Reference Range Interpretation Comme nts GLUBED (test code = GLUBED) 161 mg/dL 70-110 H [id number] 17:01:00* Test Item Value Reference Range Interpretation Comme nts GLUBED (test code = GLUBED) 122 mg/dL 70-110 H ACUTE HEPATITIS [id number] 16:02:00* Test Item Value Reference Range Interpretation Comme nts AB HEPATITIS A IGM (test code = HAVMAB) NON REACTIVE INDEX NON REACT. Testing done at [facility] [address] [place] [address]. [place] [address] AB HEPATITIS B SURFACE (test code = HBSAB) TEST NOT PERFORMED NON REACT. SEE 1217;S22 FOR NEW ORDER SEPERATED AG HEPATITIS B SURFACE (test code = HBSAG) NON REACTIVE INDEX NonReactive Testing done at [facility] [address] [place] [address]. [place] [address] AB HEPATITIS B CORE IGM (test code = HBCMAB) NON REACTIVE INDEX NON REACT. Testing done at [facility] [address] [place] [address]. [place] [address] AB HEPATITIS C (test code = HCVAB) REACTIVE INDEX NON REACT. A A reactive antib rita test is not diagnostic of activehepatitis C infection. A confirmatory test such as a NucleicAcid Test for HCV RNA test is recommended if clinicallyindicated. Testing done at [facility] [address] [place] [address]. [place] [address] [id number] 11:45:00* Test Item Value Reference Range Interpretation Comme nts GLUBED (test code = GLUBED) 122 mg/dL 70-110 H BASIC METABOLIC [id number] 10:21:00* Test Item Value Reference Range Interpretation Comme nts SODIUM (test code = NA) 141 mmol/L 136-145 N POTASSIUM (test code = K) 3.6 mmol/L 3.5-5.1 N CHLORIDE (test code = CL) 103 mmol/L 98-107 N CARBON DIOXIDE (test code = CO2) 39.0 mmol/L 20.0-31.0 H ANION GAP (test code = GAP) 2.7 0-20 N GLUCOSE (test code = GLU) 94 mg/dL 74-106 N BLOOD UREA NITROGEN (test code = BUN) 18 mg/dL 9-23 N GLOMERULAR FILTRATION RATE (test code = GFR) 104 mL/min The Glomerular Filtration Rate is a calculated parameterbased on serum Creatinine, patient age and sex. GFR valuesless than 60 mL/min/1.73 square meters are indicative ofChronic Kidney Disease. Values less than 15 mL/min/1.73square meters indicate Kidney failure. The calculation forGFR is based on the CKD-EPI (202) calculation. This formulais race indifferent and is the recommended formula for GFRby the National Kidney Foundation for Adults.The GFR will not calculate if the sex is unknown or if thepatient's age is <18 years. CREATININE (test code = CREAT) 0.60 mg/dL 0.60-1.30 N CALCIUM (test code = CA) 7.9 mg/dL 8.7-10.4 L HARD STICKS,MANTION TO NURSEHEPATIC FUNCTION PANEL [id number] 10:16:00* Test Item Value Reference Range Interpretation Comme nts TOTAL PROTEIN (test code = PROT) 6.4 g/dL 5.7-8.2 N ALBUMIN (test code = ALB) 2.7 g/dL 3.4-5.0 L BILIRUBIN TOTAL (test code = BILT) 1.10 mg/dL 0.20-1.10 N BILIRUBIN DIRECT (test code = BILD) 0.7 mg/dL 0.05-0.3 H SGOT/AST (test code = AST) 33 U/L 0-33 N SGPT/ALT (test code = ALT) 16 U/L 10-49 N ALKALINE PHOSPHATASE TOTAL ( test code = ALKP) 116 U/L 46-116 N [id number] 10:16:00* Test Item Value Reference Range Interpretation Comme nts AMMONIA (test code = AMM) 38 umol/L 11.0-32.0 HH [id number] 08:50:00* Test Item Value Reference Range Interpretation Comme nts GLUBED (test code = GLUBED) 97 mg/dL 70-110 N [id number] 20:48:00* Test Item Value Reference Range Interpretation Comme nts GLUBED (test code = GLUBED) 111 mg/dL 70-110 H [id number] 16:44:00* Test Item Value Reference Range Interpretation Comme nts GLUBED (test code = GLUBED) 98 mg/dL 70-110 N [id number] 11:57:00* Test Item Value Reference Range Interpretation Comme nts GLUBED (test code = GLUBED) 88 mg/dL 70-110 N ACUTE HEPATITIS [id number] 10:31:00* Test Item Value Reference Range Interpretation Comme nts AB HEPATITIS A IGM (test code = HAVMAB) NON REACTIVE INDEX NON REACT. AG HEPATITIS B SURFACE (test code = HBSAG) NON REACTIVE INDEX NonReactive AB HEPATITIS B CORE IGM (test code = HBCMAB) NON REACTIVE INDEX NON REACT. AB HEPATITIS C (test code = HCVAB) REACTIVE INDEX NON REACT. A A reactive antib rita test is not diagnostic of activehepatitis C infection. A confirmatory test such as a NucleicAcid Test for HCV RNA test is recommended if clinicallyindicated. [id number] 08:06:00* Test Item Value Reference Range Interpretation Comme nts GLUBED (test code = GLUBED) 77 mg/dL 70-110 N COMPREHENSIVE METABOLIC [id number] 06:29:00* Test Item Value Reference Range Interpretation Comme nts SODIUM (test code = NA) 141 mmol/L 136-145 N POTASSIUM (test code = K) 3.9 mmol/L 3.5-5.1 N CHLORIDE (test code = CL) 105 mmol/L 98-107 N CARBON DIOXIDE (test code = CO2) 36.0 mmol/L 20.0-31.0 H ANION GAP (test code = GAP) 4.0 0-20 N GLUCOSE (test code = GLU) 87 mg/dL 74-106 N BLOOD UREA NITROGEN (test code = BUN) 22 mg/dL 9-23 N GLOMERULAR FILTRATION RATE (test code = GFR) 98 mL/min The Glomerular Filtration Rate is a calculated parameterbased on serum Creatinine, patient age and sex. GFR valuesless than 60 mL/min/1.73 square meters are indicative ofChronic Kidney Disease. Values less than 15 mL/min/1.73square meters indicate Kidney failure. The calculation forGFR is based on the CKD-EPI (202) calculation. This formulais race indifferent and is the recommended formula for GFRby the National Kidney Foundation for Adults.The GFR will not calculate if the sex is unknown or if thepatient's age is <18 years. CREATININE (test code = CREAT) 0.74 mg/dL 0.60-1.30 N TOTAL PROTEIN (test code = PROT) 6.5 g/dL 5.7-8.2 N ALBUMIN (test code = ALB) 2.6 g/dL 3.4-5.0 L CALCIUM (test code = CA) 8.4 mg/dL 8.7-10.4 L BILIRUBIN TOTAL (test code = BILT) 1.10 mg/dL 0.20-1.10 N SGOT/AST (test code = AST) 43 U/L 0-33 H SGPT/ALT (test code = ALT) 22 U/L 10-49 N ALKALINE PHOSPHATASE TOTAL (test code = ALKP) 125 U/L 46-116 H PROTHROMBIN [id number] 05:52:00* Test Item Value Reference Range Interpretation Comme nts PROTHROMBIN TIME PATIENT (test code = PTP) 15.0 SECONDS 9.9-12.8 H INTERNATIONAL NORMAL RATIO (test code = INR) 1.4 0.89-1.14 H THE INR IS TO BE USED ONLY FOR MONITORING ORAL ANTICOAGULANTTHERAPY. THE FOLLOWING ARE SUGGESTED RANGES FROM THEAMERICAN COLLEGE OF CHEST PHYSICIANS:INDICATION INR VALUEPROPHYLAXIS OF VENOUS THROMBOSIS (ORTHOPEDIC SURGERY) 2.0 - 3.0PROPHYLAXIS OF VENOUS THROMBOSIS (OTHER THAN HIGH-RISK SURGERY) 2.0 - 3.0TREATMENT OF DEEP VEIN THROMBOSIS OR PULMONARY EMBOLISM 2.0 - 3.0PREVENTION OF SYSTEMIC EMBOLISM TISSUE HEART VALVES 2.0 - 3.0 ACUTE MYOCARDIAL INFARCTION (TO PREVENT SYSTEMIC EMBOLISM) 2.0 - 3.0 ACUTE MYOCARDIAL INFARCTION (TO PREVENT RECURRENT INFARCT) 2.5 - 3.0 VALVULAR HEART DISEASE 2.0 - 3.0 ATRIAL FIBRILATION 2.0 - 3.0BILEAFLET MECHANICAL VALVE IN AORTIC POSITION 2.0 - 3.0MECHANICAL PROSTHETIC VALVES (HIGH RISK) 2.5 - 3.5PRESENCE OF LUPUS ANTICOAGULANT OR ANTIPHOSPHOLIPID ANTIBODIES 2.5 - 3.5 CBC W/AUTO [id number] 05:51:00* Test Item Value Reference Range Interpretation Comme nts WHITE BLOOD CELL (test code = WBC) 5.7 K/mm3 4.5-11.0 N RED BLOOD CELL (test code = RBC) 3.55 M/mm3 4.40-5.90 L HEMOGLOBIN (test code = HGB) 11.1 gm/dL 13.0-17.0 L HEMATOCRIT (test code = HCT) 34.6 % 36.0-48.0 L MEAN CELL VOLUME (test code = MCV) 97.5 UM3 80.0-94.0 H MEAN CELL HGB (test code = MCH) 31.3 UUG 25.5-32.5 N MEAN CELL HGB CONCETRATION (test code = MCHC) 32.1 gm/dL 29.0-35.5 N RED CELL DISTRIBUTION WIDTH (test code = RDW) 17.4 % 11.5-15.0 H RED CELL DISTRIBUTION WIDTH SD (test code = RDW-SD) 62.8 fL 34.8-50.2 H PLATELET COUNT (test code = PLT) 144 K/mm3 150-400 L MEAN PLATELET VOLUME (test c ode = MPV) 8.7 fl 7.4-10.4 N NEUTROPHIL % (test code = NT%) 63.2 % 49.0-76.0 N IMMATURE GRANULOCYTE % (test code = IG%) 1.6 % 0.0-0.4 H LYMPHOCYTE % (test code = LY%) 17.5 % 23.0-38.0 L MONOCYTE % (test code = MO%) 12.9 % 1.0-10.0 H EOSINOPHIL % (test code = EO%) 3.9 % 1.0-5.0 N BASOPHIL % (test code = BA%) 0.9 % 0.0-1.0 N NUCLEATED RBC % (test code = NRBC%) 0.0 % 0.0-0.1 N NEUTROPHIL # (test code = NT#) 3.6 K/mm3 2.4-6.3 N IMMATURE GRANULOCYTE # (test code = IG#) 0.09 x10 3/uL 0.00-0.07 H LYMPHOCYTE # (test code = LY#) 1.0 K/mm3 1.2-4.0 L MONOCYTE # (test code = MO#) 0.7 K/mm3 0.0-0.6 H EOSINOPHIL # (test code = EO#) 0.2 K/MM3 0.0-0.7 N BASOPHIL # (test code = BA#) 0.1 K/mm3 0.0-0.2 N NUCLEATED RBC # (test code = NRBC#) 0.00 X10 3uL 0.00-0.01 N [id number] 20:45:00* Test Item Value Reference Range Interpretation Comme nts GLUBED (test code = GLUBED) 138 mg/dL 70-110 H [id number] 11:33:00* Test Item Value Reference Range Interpretation Comme nts GLUBED (test code = GLUBED) 137 mg/dL 70-110 H [id number] 07:54:00* Test Item Value Reference Range Interpretation Comme nts GLUBED (test code = GLUBED) 133 mg/dL 70-110 H [id number] 07:06:00* Test Item Value Reference Range Interpretation Comme nts AMMONIA (test code = AMM) 43 umol/L 11.0-32.0 HH [id number] 06:18:00* Test Item Value Reference Range Interpretation Comme nts PHOSPHOROUS (test code = PHOS) 3.1 mg/dL 2.4-5.1 N [id number] 06:18:00* Test Item Value Reference Range Interpretation Comme nts MAGNESIUM (test code = MAG) 1.8 mg/dL 1.6-2.6 N COMPREHENSIVE METABOLIC [id number] 06:00:00* Test Item Value Reference Range Interpretation Comme nts SODIUM (test code = NA) 139 mmol/L 136-145 N POTASSIUM (test code = K) 3.9 mmol/L 3.5-5.1 N CHLORIDE (test code = CL) 107 mmol/L 98-107 N CARBON DIOXIDE (test code = CO2) 31.0 mmol/L 20.0-31.0 N ANION GAP (test code = GAP) 4.8 0-20 N GLUCOSE (test code = GLU) 130 mg/dL 74-106 H BLOOD UREA NITROGEN (test code = BUN) 19 mg/dL 9-23 N GLOMERULAR FILTRATION RATE (test code = GFR) 96 mL/min The Glomerular Filtration Rate is a calculated parameterbased on serum Creatinine, patient age and sex. GFR valuesless than 60 mL/min/1.73 square meters are indicative ofChronic Kidney Disease. Values less than 15 mL/min/1.73square meters indicate Kidney failure. The calculation forGFR is based on the CKD-EPI (202) calculation. This formulais race indifferent and is the recommended formula for GFRby the National Kidney Foundation for Adults.The GFR will not calculate if the sex is unknown or if thepatient's age is <18 years. CREATININE (test code = CREAT) 0.79 mg/dL 0.60-1.30 N ESTIMATED CREAT CLEARANCE (test code = ECRCL) 91 mL/min >30 TOTAL PROTEIN (test code = PROT) 7.1 g/dL 5.7-8.2 ALBUMIN (test code = ALB) 2.9 g/dL 3.4-5.0 L CALCIUM (test code = CA) 8.2 mg/dL 8.7-10.4 L BILIRUBIN TOTAL (test code = BILT) 1.10 mg/dL 0.20-1.10 N SGOT/AST (test code = AST) 64 U/L 0-33 H SGPT/ALT (test code = ALT) 32 U/L 10-49 N ALKALINE PHOSPHATASE TOTAL (test code = ALKP) 146 U/L 46-116 H LACTIC [id number] 05:59:00* Test Item Value Reference Range Interpretation Comme nts LACTIC ACID (test code = LACT) 1.4 mmol/L 0.5-2.0 N CBC W/AUTO [id number] 05:55:00* Test Item Value Reference Range Interpretation Comme nts WHITE BLOOD CELL (test code = WBC) 7.4 K/mm3 4.5-11.0 N RED BLOOD CELL (test code = RBC) 3.66 M/mm3 4.40-5.90 L HEMOGLOBIN (test code = HGB) 11.7 gm/dL 13.0-17.0 L HEMATOCRIT (test code = HCT) 35.8 % 36.0-48.0 L MEAN CELL VOLUME (test code = MCV) 97.8 UM3 80.0-94.0 H MEAN CELL HGB (test code = MCH) 32.0 UUG 25.5-32.5 N MEAN CELL HGB CONCETRATION (test code = MCHC) 32.7 gm/dL 29.0-35.5 N RED CELL DISTRIBUTION WIDTH (test code = RDW) 17.5 % 11.5-15.0 H RED CELL DISTRIBUTION WIDTH SD (test code = RDW-SD) 63.0 fL 34.8-50.2 H PLATELET COUNT (test code = PLT) 170 K/mm3 150-400 N MEAN PLATELET VOLUME (test c ode = MPV) 8.8 fl 7.4-10.4 N NEUTROPHIL % (test code = NT%) 71.0 % 49.0-76.0 N IMMATURE GRANULOCYTE % (test code = IG%) 3.0 % 0.0-0.4 H LYMPHOCYTE % (test code = LY%) 12.1 % 23.0-38.0 L MONOCYTE % (test code = MO%) 12.0 % 1.0-10.0 H EOSINOPHIL % (test code = EO%) 1.2 % 1.0-5.0 N BASOPHIL % (test code = BA%) 0.7 % 0.0-1.0 N NUCLEATED RBC % (test code = NRBC%) 0.0 % 0.0-0.1 N NEUTROPHIL # (test code = NT#) 5.3 K/mm3 2.4-6.3 N IMMATURE GRANULOCYTE # (test code = IG#) 0.22 x10 3/uL 0.00-0.07 H LYMPHOCYTE # (test code = LY#) 0.9 K/mm3 1.2-4.0 L MONOCYTE # (test code = MO#) 0.9 K/mm3 0.0-0.6 H EOSINOPHIL # (test code = EO#) 0.1 K/MM3 0.0-0.7 N BASOPHIL # (test code = BA#) 0.1 K/mm3 0.0-0.2 N NUCLEATED RBC # (test code = NRBC#) 0.00 X10 3uL 0.00-0.01 N RENAL FUNCTION [id number] 21:33:00* Test Item Value Reference Range Interpretation Comme nts SODIUM (test code = NA) 140 mmol/L 136-145 N POTASSIUM (test code = K) 4.0 mmol/L 3.5-5.1 N CHLORIDE (test code = CL) 108 mmol/L 98-107 H CARBON DIOXIDE (test code = CO2) 31.0 mmol/L 20.0-31.0 N ANION GAP (test code = GAP) 4.8 0-20 N GLUCOSE (test code = GLU) 149 mg/dL 74-106 H BLOOD UREA NITROGEN (test code = BUN) 22 mg/dL 9-23 N GLOMERULAR FILTRATION RATE (test code = GFR) 94 mL/min The Glomerular Filtration Rate is a calculated parameterbased on serum Creatinine, patient age and sex. GFR valuesless than 60 mL/min/1.73 square meters are indicative ofChronic Kidney Disease. Values less than 15 mL/min/1.73square meters indicate Kidney failure. The calculation forGFR is based on the CKD-EPI (2020) calculation. This formulais race indifferent and is the recommended formula for GFRby the National Kidney Foundation for Adults.The GFR will not calculate if the sex is unknown or if thepatient's age is <18 years. CREATININE (test code = CREAT) 0.86 mg/dL 0.60-1.30 N ALBUMIN (test code = ALB) 2.9 g/dL 3.4-5.0 L CALCIUM (test code = CA) 7.9 mg/dL 8.7-10.4 L PHOSPHOROUS (test code = PHOS) 3.3 mg/dL 2.4-5.1 N ESTIMATED CREAT CLEARANCE (test code = ECRCL) 84 mL/min >30 [id number] 21:33:00* Test Item Value Reference Range Interpretation Comme nts MAGNESIUM (test code = MAG) 1.7 mg/dL 1.6-2.6 N [id number] 21:16:00* Test Item Value Reference Range Interpretation Comme nts GLUBED (test code = GLUBED) 156 mg/dL 70-110 H [id number] 17:49:00* Test Item Value Reference Range Interpretation Comme nts GLUBED (test code = GLUBED) 141 mg/dL 70-110 H [id number] 12:06:00* Test Item Value Reference Range Interpretation Comme nts HGBA1C% (test code = HGBA1C%) 5.00 % 0.0-5.6 N ESTIMATED AVERAGE GLUCOSE (t est code = EAG) 97 MG/DL [id number] 11:55:00* Test Item Value Reference Range Interpretation Comme nts GLUBED (test code = GLUBED) 153 mg/dL 70-110 H UA RFLX MICR CULT IF [id number] 10:26:00* Test Item Value Reference Range Interpretation Comme nts UA COLOR (test code = COLU) DARK YELLOW UA APPEARANCE (test code = APPU) CLEAR UA GLUCOSE DIPSTICK (test code = DGLUU) NORMAL mg/dl NORMAL UA BILIRUBIN DIPSTICK (test code = BILU) NEGATIVE mg/dL NEGATIVE UA KETONE DIPSTICK (test code = KETU) NEGATIVE mg/dl NEGATIVE UA SPECIFIC GRAVITY (test code = SGU) 1.025 1.000-1.030 UA BLOOD DIPSTICK (test code = ANABELLA) 250 Carmelo/micL Carmelo/micL NEGATIVE A UA PH DIPSTICK (test code = MARIE) 6.0 5.0-9.0 UA PROTEIN DIPSTICK (test code = PROU) 30 mg/dl NEGATIVE UA UROBILINIOGEN DIPSTICK (test code = URO) 4.0 mg/dl mg/dl NORMAL A UA NITRITE DIPSTICK (test code = AMARI) NEGATIVE NEGATIVE UA LEUKOCYTE ESTERASE DIPSTICK (test code = LEUU) 25 Pat/micL Pat/micL NEGATIVE A UA WBC (test code = WBCU) 0-3 WBC/HPF NONE UA RBC (test code = RBCU) 5-10 RBC/HPF 0-3 A UA EPITHELIAL CELLS (test code = EPIU) 1-3 EPI/HPF 0-3 UA BACTERIA (test code = BACU) FEW NONE UA AMORPHOUS SEDIMENT (test code = AMORU) FEW NONE Indication for culture: RiskForSepsis-no oth srcSpecimen Description: CLEAN [id number] 09:06:00* Test Item Value Reference Range Interpretation Comme nts GLUBED (test code = GLUBED) 101 mg/dL 70-110 N TROP-I HIGH [id number] 01:50:00* Test Item Value Reference Range Interpretation Comme nts TROP-I HIGH SENSITIVITY (test code = TROPIHS) 35 ng/L 0-54 N CAUTION: Units o f the current TROPI-HS test methodology(ng/L) differ from the prior test methodology (ng/mL) by afactor of 1000. 99th Percentile: Females: 0 - 34 ng/L Males: 0 - 54 ng/LThese results were obtained using [employer] CI 1900 TnIHreagent. Results from different methodologies should not becompared to one another as quantitative results may vary bymethod. BASIC METABOLIC [id number] 01:50:00* Test Item Value Reference Range Interpretation Comme nts SODIUM (test code = NA) 142 mmol/L 136-145 N POTASSIUM (test code = K) 3.4 mmol/L 3.5-5.1 L CHLORIDE (test code = CL) 114 mmol/L 98-107 H CARBON DIOXIDE (test code = CO2) 27.0 mmol/L 20.0-31.0 N ANION GAP (test code = GAP) 4.6 0-20 N GLUCOSE (test code = GLU) 104 mg/dL 74-106 N BLOOD UREA NITROGEN (test code = BUN) 24 mg/dL 9-23 H GLOMERULAR FILTRATION RATE (test code = GFR) 102 mL/min The Glomerular Filtration Rate is a calculated parameterbased on serum Creatinine, patient age and sex. GFR valuesless than 60 mL/min/1.73 square meters are indicative ofChronic Kidney Disease. Values less than 15 mL/min/1.73square meters indicate Kidney failure. The calculation forGFR is based on the CKD-EPI (202) calculation. This formulais race indifferent and is the recommended formula for GFRby the National Kidney Foundation for Adults.The GFR will not calculate if the sex is unknown or if thepatient's age is <18 years. CREATININE (test code = CREAT) 0.66 mg/dL 0.60-1.30 N CALCIUM (test code = CA) 6.4 mg/dL 8.7-10.4 LL HEPATIC FUNCTION PANEL [id number] 01:50:00* Test Item Value Reference Range Interpretation Comme nts TOTAL PROTEIN (test code = PROT) 4.9 g/dL 5.7-8.2 L ALBUMIN (test code = ALB) 2.3 g/dL 3.4-5.0 L BILIRUBIN TOTAL (test code = BILT) 1.20 mg/dL 0.20-1.10 H BILIRUBIN DIRECT (test code = BILD) 0.8 mg/dL 0.05-0.3 H SGOT/AST (test code = AST) 61 U/L 0-33 H SGPT/ALT (test code = ALT) 27 U/L 10-49 N ALKALINE PHOSPHATASE TOTAL ( test code = ALKP) 120 U/L 46-116 H LACTIC [id number] 01:43:00* Test Item Value Reference Range Interpretation Comme nts LACTIC ACID (test code = LACT) 1.2 mmol/L 0.5-2.0 N CBC W/AUTO [id number] 01:38:00* Test Item Value Reference Range Interpretation Comme nts WHITE BLOOD CELL (test code = WBC) 8.5 K/mm3 4.5-11.0 N RED BLOOD CELL (test code = RBC) 3.64 M/mm3 4.40-5.90 L HEMOGLOBIN (test code = HGB) 11.6 gm/dL 13.0-17.0 L HEMATOCRIT (test code = HCT) 35.2 % 36.0-48.0 L MEAN CELL VOLUME (test code = MCV) 96.7 UM3 80.0-94.0 H MEAN CELL HGB (test code = MCH) 31.9 UUG 25.5-32.5 N MEAN CELL HGB CONCETRATION (test code = MCHC) 33.0 gm/dL 29.0-35.5 N RED CELL DISTRIBUTION WIDTH (test code = RDW) 17.4 % 11.5-15.0 H RED CELL DISTRIBUTION WIDTH SD (test code = RDW-SD) 62.6 fL 34.8-50.2 H PLATELET COUNT (test code = PLT) 143 K/mm3 150-400 L MEAN PLATELET VOLUME (test c ode = MPV) 9.0 fl 7.4-10.4 N NEUTROPHIL % (test code = NT%) 79.3 % 49.0-76.0 H IMMATURE GRANULOCYTE % (test code = IG%) 2.3 % 0.0-0.4 H LYMPHOCYTE % (test code = LY%) 8.8 % 23.0-38.0 L MONOCYTE % (test code = MO%) 8.3 % 1.0-10.0 N EOSINOPHIL % (test code = EO%) 0.6 % 1.0-5.0 L BASOPHIL % (test code = BA%) 0.7 % 0.0-1.0 N NUCLEATED RBC % (test code = NRBC%) 0.0 % 0.0-0.1 N NEUTROPHIL # (test code = NT#) 6.8 K/mm3 2.4-6.3 H IMMATURE GRANULOCYTE # (test code = IG#) 0.20 x10 3/uL 0.00-0.07 H LYMPHOCYTE # (test code = LY#) 0.8 K/mm3 1.2-4.0 L MONOCYTE # (test code = MO#) 0.7 K/mm3 0.0-0.6 H EOSINOPHIL # (test code = EO#) 0.1 K/MM3 0.0-0.7 N BASOPHIL # (test code = BA#) 0.1 K/mm3 0.0-0.2 N NUCLEATED RBC # (test code = NRBC#) 0.00 X10 3uL 0.00-0.01 N POC [id number] 14:01:04* Test Item Value Reference Range Interpretation Comme nts POC Glu (test code = 6721003797) 152 mg/dL 70-99 H POC Performing Location (sushil t code = 8194674661) [facility] Interpretation (test cod e = 22730-4) Abnormal [facility] [id number] 09:13:48* Test Item Value Reference Range Interpretation Comme nts POC Glu (test code = 4463213676) 186 mg/dL 70-99 H POC Performing Location (sushil t code = 4695034689) [facility] Interpretation (test cod e = 92178-9) Abnormal [facility] [id number] 22:33:59* Test Item Value Reference Range Interpretation Comme nts POC Glu (test code = 0997699469) 120 mg/dL 70-99 H POC Performing Location (sushil t code = 9023627361) [facility] Interpretation (test cod e = 97615-3) Abnormal [facility] [id number] 12:22:13* Test Item Value Reference Range Interpretation Comme nts POC Glu (test code = 1464001954) 170 mg/dL 70-99 H POC Performing Location (sushil t code = 8870291245) [facility] Interpretation (test cod e = 61235-7) Abnormal [facility] Yhxbdla7979-05-28 09:37:28* Test Item Value Reference Range Interpretation Comme nts POC Glu (test code = 7920255261) 103 mg/dL 70-99 H POC Performing Location (sushil t code = 0196839876) [facility] Interpretation (test cod e = 82049-6) Abnormal [facility] Cchqpzo0287-20-00 16:33:34* Test Item Value Reference Range Interpretation Comme nts POC Glu (test code = 6012475106) 151 mg/dL 70-99 H POC Performing Location (sushil t code = 2631833459) [facility] Interpretation (test cod e = 88547-1) Abnormal [facility] Ofaxjqs0219-94-89 12:19:34* Test Item Value Reference Range Interpretation Comme nts POC Glu (test code = 7786687415) 96 mg/dL 70-99 POC Performing Location (sushil t code = 9699646043) [facility] Vcdhjgr7274-40-42 16:10:54* Test Item Value Reference Range Interpretation Comme nts POC Glu (test code = 9755751344) 107 mg/dL 70-99 H POC Performing Location (sushil t code = 6619007417) [facility] Interpretation (test cod e = 77149-4) Abnormal [facility] Rescjox7632-39-21 15:04:54* Test Item Value Reference Range Interpretation Comme nts POC Glu (test code = 8743166979) 209 mg/dL 70-99 H POC Performing Location (sushil t code = 8639752616) C3 MED Lab Interpretation (test cod e = 46882-2) Abnormal [facility] Enhdumt6114-58-72 11:38:52* Test Item Value Reference Range Interpretation Comme nts POC Glu (test code = 4472634829) 111 mg/dL 70-99 H POC Performing Location (sushil t code = 2135928646) C3 MED Lab Interpretation (test cod e = 10535-3) Abnormal [facility] Jtudzni0456-23-16 11:38:21* Test Item Value Reference Range Interpretation Comme nts POC Glu (test code = 1866780247) 109 mg/dL 70-99 H POC Glu Comment 1 (test code = 9499218794) Notified RN/MD POC Performing Location (sushil t code = 0402168161) C3 MED Lab Interpretation (test cod e = 65458-4) Abnormal [facility] Tavfqss3720-17-96 20:46:36* Test Item Value Reference Range Interpretation Comme nts POC Glu (test code = 0305038217) 99 mg/dL 70-99 POC Performing Location (sushil t code = 0955610444) C3 MED [facility] Zivlizn8792-62-36 12:45:20* Test Item Value Reference Range Interpretation Comme nts POC Glu (test code = 1938125087) 106 mg/dL 70-99 H POC Glu Comment 1 (test code = 4925295233) Notified RN/MD POC Performing Location (sushil t code = 4823781453) C3 MED Lab Interpretation (test cod e = 87701-8) Abnormal [facility] Obsujop1940-05-10 09:05:30* Test Item Value Reference Range Interpretation Comme nts POC Glu (test code = 1338335110) 142 mg/dL 70-99 H POC Glu Comment 1 (test code = 2256382355) Notified RN/MD POC Performing Location (ssuhil t code = 4744217566) C3 MED Lab Interpretation (test cod e = 29001-1) Abnormal [facility] Vwwuwym7342-21-15 16:53:32* Test Item Value Reference Range Interpretation Comme nts POC Glu (test code = 7221268422) 128 mg/dL 70-99 H POC Performing Location (sushil t code = 1973120994) C3 MED Lab Interpretation (test cod e = 64188-5) Abnormal [facility] Lostssn9551-07-57 16:53:32* Test Item Value Reference Range Interpretation Comme nts POC Glu (test code = 5000001157) 128 mg/dL 70-99 H POC Performing Location (sushil t code = 3076523523) C3 MED Lab Interpretation (test cod e = 81767-5) Abnormal [facility] Paqnpps3653-69-80 16:52:55* Test Item Value Reference Range Interpretation Comme nts POC Glu (test code = 2885843186) 89 mg/dL 70-99 POC Glu Comment 1 (test code = 4933270161) Notified RN/MD POC Performing Location (sushil t code = 4691950397) C3 MED [facility] Xfagofn8323-77-41 15:49:05* Test Item Value Reference Range Interpretation Comme nts POC Glu (test code = 1536865645) 111 mg/dL 70-99 H POC Performing Location (sushil t code = 2049761898) C2 MICU Lab Interpretation (test cod e = 19085-4) Abnormal [facility] Rzdczvg2528-91-14 11:51:01* Test Item Value Reference Range Interpretation Comme nts POC Glu (test code = 8035746939) 135 mg/dL 70-99 H POC Glu Comment 1 (test code = 2012922194) Notified RN/MD POC Performing Location (sushil t code = 7353953550) SP8 HT ICU Lab Interpretation (test cod e = 92749-8) Abnormal [facility] Kdlomkb3307-12-59 07:52:19* Test Item Value Reference Range Interpretation Comme nts POC Glu (test code = 3838549858) 94 mg/dL 70-99 POC Performing Location (sushil t code = 6489099564) C2 MICU [facility] Ruhdorv0151-52-76 23:28:28* Test Item Value Reference Range Interpretation Comme nts POC Glu (test code = 5513344256) 113 mg/dL 70-99 H POC Performing Location (sushil t code = 6594484223) C2 MICU Lab Interpretation (test cod e = 59510-3) Abnormal [facility] Uoegryb2559-29-37 20:12:35* Test Item Value Reference Range Interpretation Comme nts POC Glu (test code = 1694224727) 126 mg/dL 70-99 H POC Performing Location (sushil t code = 7583842564) C2 MICU Lab Interpretation (test cod e = 70309-4) Abnormal [facility] Ymrsaqb7546-36-09 17:46:44* Test Item Value Reference Range Interpretation Comme nts POC Glu (test code = 8990988789) 118 mg/dL 70-99 H POC Glu Comment 1 (test code = 3901282504) Notified RN/MD POC Performing Location (sushil t code = 3005000401) SP8 HT ICU Lab Interpretation (test cod e = 98397-4) Abnormal [facility] Lvaduay0763-79-75 12:03:28* Test Item Value Reference Range Interpretation Comme nts POC Glu (test code = 4444992460) 119 mg/dL 70-99 H POC Glu Comment 1 (test code = 2139479616) Notified RN/MD POC Performing Location (sushil t code = 3497756306) C2 MICU Lab Interpretation (test cod e = 08173-5) Abnormal [facility] Spxmzcf4476-24-93 08:35:28* Test Item Value Reference Range Interpretation Comme nts POC Glu (test code = 8548610922) 88 mg/dL 70-99 POC Glu Comment 1 (test code = 2703821971) Notified RN/MD POC Performing Location (sushil t code = 5424498469) [address] Plekfol6337-15-54 03:50:02* Test Item Value Reference Range Interpretation Comme nts POC Glu (test code = 6498306936) 117 mg/dL 70-99 H POC Performing Location (sushil t code = 4948144816) [address] Lab Interpretation (test cod e = 67137-0) Abnormal [facility] 12 lead (arrhythmia)2024-08-04 00:26:59* Test Item Value Reference Range Interpretation Comme nts Ventricular Rate (test code = 4581058981) BPM Atrial Rate (test code = 7737991460) BPM HI Interval (test code = 9112714008) 144 ms QRS Duration (test code = 4186554036) 144 ms QT/QTc (test code = 2372387124) 380 ms QTc Calculation (test code = 6100190649) 532 ms P-Hector (test code = 4893400174) degrees R-Hector (test code = 3108611144) degrees T-Hector (test code = 1162923200) degrees RUSLAN (test code = RUSLAN) PXN (test code = PXN) [facility] Plevnso0645-09-27 23:41:32* Test Item Value Reference Range Interpretation Comme nts POC Glu (test code = 2622769771) 98 mg/dL 70-99 POC Glu Comment 1 (test code = 7884498412) Notified RN/MD POC Performing Location (sushil t code = 0500158822) [address] Gpphqfa2967-27-04 20:08:29* Test Item Value Reference Range Interpretation Comme nts POC Glu (test code = 6033498681) 81 mg/dL 70-99 POC Glu Comment 1 (test code = 0659443968) Notified RN/MD POC Performing Location (sushil t code = 1193469808) [address] ([address]E) gonlyxdn1990-83-06 16:06:00* Test Item Value Reference Range Interpretation Comme nts RVOT Vmean (test code = 9972098787) 0.72 m/s LA Vol I (A4C) BSA (test code = 9545320200) 19.2 ml/m2 LVOT Vmax/AV Vmax (test code = 0855323006) 0.75 {ratio} Ao Root diam diastole (test code = 6230687694) 39 mm LVOT Vmean (test code = 6882754117) 0.72 m/s LV SV (A4C) (test code = 8071369992) 108 ml LV SI (A4C) (test code = 6024857843) 46 ml/m2 LVLs (A4C) (test code = 7731013960) 73.7 mm LVLd (A4C) (test code = 4215035072) 92 mm PV mn jessica (test code = 0867204954) 0.68 m/s LV EDV A4C (test code = 4028515908) 140 mL LA area A4C (test code = 2914008735) 18.8 cm2 LV ESV A4C (test code = 3104339972) 32 mL MV max jessica (test code = 1965275484) 1.33 cm/s TAPSE (test code = 9116546869) 23 mm IVC size (test code = 2772058928) 19 mm MV mn jessica (test code = 6138486830) 1.01 m/s LV est EF (test code = 5343744735) 76 % MV A pk jessica (test code = 6874354852) 1.2 m/s MV PHT (test code = 4928364932) 121 ms MV VTI (test code = 3529723551) 38.8 cm MV E pk jessica (test code = 5293374105) 1.06 m/s PV mn grad (test code = 8233323840) mmHg MV pk grad (test code = 0652485799) mmHg AV pk grad (test code = 3817398139) mmHg LV stroke vol (test code = 3504856943) 86 ml RVOT VTI (test code = 2719056724) 18.9 cm RVOT pk jessica (test code = 0216497490) 0.96 m/s AV VTI (test code = 9721668285) 27.2 cm AV pk jessica (test code = 7356760354) 1.42 m/s LVOT VTI (test code = 4661854643) 22.7 cm LVOT pk jessica (test code = 2361197128) 1.06 m/s LVOT area (test code = 5563830025) 3.8 cm2 LVOT diam (test code = 1570705756) 22 mm MV DT (test code = 2238118143) 413 ms MV e' lateral jessica (test code = 0118088971) 10.6 cm/s MV E/A ratio (test code = 4017419150) PV pk grad (test code = 3898652913) mmHg MV area cont eq (test code = 0823894654) 2.22 cm2 MV area PHT (test code = 8513629558) 1.82 cm2 MV mn grad (test code = 2611648058) mmHg LVOT pk grad (test code = 9250683835) mmHg AV area planimetry (test code = 1162952122) 3.17 cm2 AV mn grad (test code = 5804846023) mmHg RVOT mn grad (test code = 2791387998) mmHg RVOT pk grad (test code = 5722368254) mmHg MV E/e' septal (test code = 5921223700) AV area pk jessica (test code = 4767219620) 2.84 cm2 AV area cont VTI (test code = 4893036724) 3.17 cm2 LVOT mn grad (test code = 6072644308) mmHg LV A4C EF (test code = 1329087951) 77 % AV mn jessica (test code = 8121479490) 1.05 m/s LVPWd (test code = 5129044787) 12 mm LA size (test code = 6995383785) 39 mm IVC prox (test code = 4454460794) 19.504983297926990 cm Fractional Shortening 2D (test code = 5714197995) 45 % LVIDs (test code = 3383619370) 25 mm IVSd (test code = 7662958739) 13 mm LVIDd (test code = 9547819707) 44 mm PV pk jessica (test code = 5107496240) 1.06 m/s PV VTI (test code = 6882520) 18.8 cm MV E/e' lateral (test code = 4921707) MV e' septal jessica (test code = 5397287) 6.96 cm/s LV ESV 2D (test code = 7568063) 21.2 mL LV EDV 2D (test code = 5443682) 89.1 mL IVSd 2D (test code = 3632525) 12.294905131037169 cm BSA (test code = 3340843693) 2.42 m2 Radiology Study observation (narrative) (test code = 40519-1) RUSLAN (test code = RUSLAN) [facility] Lfrkfsc0088-76-40 16:05:59* Test Item Value Reference Range Interpretation Comme nts POC Glu (test code = 8794450173) 78 mg/dL 70-99 POC Performing Location (sushil t code = 7092485240) C2 MICU [facility] Iwpnfqv8037-95-41 12:31:34* Test Item Value Reference Range Interpretation Comme nts POC Glu (test code = 8905574391) 90 mg/dL 70-99 POC Performing Location (sushil t code = 5797513874) C2 MICU [facility] Dtuzgan8228-55-24 08:10:31* Test Item Value Reference Range Interpretation Comme nts POC Glu (test code = 3295707579) 102 mg/dL 70-99 H POC Performing Location (sushil t code = 0998186407) C2 MICU Lab Interpretation (test cod e = 90350-9) Abnormal [facility] Vrvzccw5245-64-67 04:19:10* Test Item Value Reference Range Interpretation Comme nts POC Glu (test code = 1524910133) 109 mg/dL 70-99 H POC Performing Location (sushil t code = 7029725938) SP8 HT ICU Lab Interpretation (test cod e = 15035-8) Abnormal [facility] Sdhchzy4426-31-81 03:39:09* Test Item Value Reference Range Interpretation Comme nts POC Glu (test code = 0037065386) 122 mg/dL 70-99 H POC Performing Location (sushil t code = 2786012021) C2 MICU Lab Interpretation (test cod e = 16830-1) Abnormal [facility] Arterial Blood Gas and Basic Qfynd2065-35-32 03:38:26* Test Item Value Reference Range Interpretation Comme nts POC A Temp (test code = 1641098574) DegC POC A Source (test code = 5265438651) ART POC A pH (test code = 2744-1) 7.35-7.45 POC A PCO2 (test code = 2019-8) See_Comment [Automated messa ge] The system which generated this result transmitted reference range: 35 - 45 mmHg. The reference range was not used to interpret this result as normal/abnormal. POC A PO2 (test code = 2703-7) See_Comment [Automated messa ge] The system which generated this result transmitted reference range: 80 - 100 mmHg. The reference range was not used to interpret this result as normal/abnormal. POC A HCO3 (test code = 1960-4) See_Comment [Automated messa ge] The system which generated this result transmitted reference range: 22 - 26 mMol/L. The reference range was not used to interpret this result as normal/abnormal. POC A BE (test code = 1925-7) See_Comment [Automated messa ge] The system which generated this result transmitted reference range: -2 - 2 mMol/L. The reference range was not used to interpret this result as normal/abnormal. POC A O2 Sat (calc) (test code = 2708-6) 98.3 % 95-100 POC A Hgb Tot (test code = 02913-5) 12.7 g/dL 13.7-17.5 L POC A Hct (calc) (test code = 44279-2) 38 % 40.1-51.0 L POC A Na (test code = 17355-2) See_Comment [Automated messa ge] The system which generated this result transmitted reference range: 135 - 145 mEq/L. The reference range was not used to interpret this result as normal/abnormal. POC A K (test code = 0769215) See_Comment [Automated messa ge] The system which generated this result transmitted reference range: 3.5 - 5.1 mEq/L. The reference range was not used to interpret this result as normal/abnormal. POC Chloride (test code = 2818197) See_Comment [Automated messa ge] The system which generated this result transmitted reference range: 95 - 109 mEq/L. The reference range was not used to interpret this result as normal/abnormal. POC A Glu (test code = 2339-0) 122 mg/dL 70-99 H POC A LA (test code = 224) See_Comment [Automated messa ge] The system which generated this result transmitted reference range: 0.5 - 2.2 mMol/L. The reference range was not used to interpret this result as normal/abnormal. POC A Ca Ion (test code = 38813-2) See_Comment [Automated messa ge] The system which generated this result transmitted reference range: 1.05 - 1.25 mMol/L. The reference range was not used to interpret this result as normal/abnormal. POC A Ca Ion (7.4) (test code = 2014877980) 1.15 mmol/L 1.05-1.25 POC A Mech R (bpm) (test code = 0419530591) bpm POC A Mech VT (test code = 7101536863) 450 mL POC A PEEP (test code = 2423713506) cmH20 POC A %FIO2 (test code = 2593664496) 40 % POC Performing Location (test code = 9920482842) HH BG CLIN Lab Interpretation (test code = 84887-9) Abnormal [facility] Arterial Blood Gas and Basic Nasmc7622-21-37 23:04:49* Test Item Value Reference Range Interpretation Comme nts POC A Temp (test code = 2402474675) DegC POC A Source (test code = 6563635448) ART POC A pH (test code = 2744-1) 7.35-7.45 POC A PCO2 (test code = 2019-8) See_Comment [Automated messa ge] The system which generated this result transmitted reference range: 35 - 45 mmHg. The reference range was not used to interpret this result as normal/abnormal. POC A PO2 (test code = 2703-7) See_Comment [Automated messa ge] The system which generated this result transmitted reference range: 80 - 100 mmHg. The reference range was not used to interpret this result as normal/abnormal. POC A HCO3 (test code = 1960-4) See_Comment [Automated messa ge] The system which generated this result transmitted reference range: 22 - 26 mMol/L. The reference range was not used to interpret this result as normal/abnormal. POC A BE (test code = 1925-7) See_Comment [Automated messa ge] The system which generated this result transmitted reference range: -2 - 2 mMol/L. The reference range was not used to interpret this result as normal/abnormal. POC A O2 Sat (calc) (test code = 2708-6) 96.3 % 95-100 POC A Hgb Tot (test code = 09229-7) 13.2 g/dL 13.7-17.5 L POC A Hct (calc) (test code = 50223-0) 40 % 40.1-51.0 L POC A Na (test code = 74290-1) See_Comment [Automated messa ge] The system which generated this result transmitted reference range: 135 - 145 mEq/L. The reference range was not used to interpret this result as normal/abnormal. POC A K (test code = 0310912) See_Comment [Automated messa ge] The system which generated this result transmitted reference range: 3.5 - 5.1 mEq/L. The reference range was not used to interpret this result as normal/abnormal. POC Chloride (test code = 0351872) See_Comment [Automated messa ge] The system which generated this result transmitted reference range: 95 - 109 mEq/L. The reference range was not used to interpret this result as normal/abnormal. POC A Glu (test code = 2339-0) 144 mg/dL 70-99 H POC A LA (test code = 224) See_Comment [Automated messa ge] The system which generated this result transmitted reference range: 0.5 - 2.2 mMol/L. The reference range was not used to interpret this result as normal/abnormal. POC A Ca Ion (test code = 14258-2) See_Comment [Automated messa ge] The system which generated this result transmitted reference range: 1.05 - 1.25 mMol/L. The reference range was not used to interpret this result as normal/abnormal. POC A Ca Ion (7.4) (test code = 6416115613) 1.15 mmol/L 1.05-1.25 POC A Mech R (bpm) (test code = 5077107616) bpm POC A Mech VT (test code = 0615572037) 500 mL POC A PEEP (test code = 6709223471) cmH20 POC A %FIO2 (test code = 3573926627) 40 % POC Performing Location (test code = 7275533684) BG CLIN Lab Interpretation (test code = 37509-0) Abnormal [facility] Rdorukq7211-18-56 22:58:53* Test Item Value Reference Range Interpretation Comme nts POC Glu (test code = 0851348760) 135 mg/dL 70-99 H POC Performing Location (sushil t code = 1215519010) C2 MICU Lab Interpretation (test cod e = 68538-4) Abnormal [facility] DdctJYOGZRWBE5824-66-50 12:20:00* Test Item Value Reference Range Interpretation Comme nts BUN (test code = BUN) 23 7-22 H Calcium Lvl (test code = Calcium Lvl) 7.9 8.5-10.5 L Potassium Lvl (test code = P otassium Lvl) 4.7 3.5-5.1 N Chloride Lvl (test code = Chloride Lvl) 102 95-109 N Sodium Lvl (test code = Sodium Lvl) 137 135-145 N Glucose Lvl (test code = Glucose Lvl) 145 70-99 H Creatinine Lvl (test code = Creatinine Lvl) 1.3 0.5-1.4 N CO2 (test code = CO2) 27 24-32 N eGFR (test code = eGFR) 61 AGAP (test code = AGAP) 12.7 10.0-20.0 N [facility] 12:20:00* Test Item Value Reference Range Interpretation Comme nts Monocytes # (test code = Monocytes #) 0.6 <=0.8 N Large Plt (test code = Large Plt) Slight *ABN*(10/26/2012 06:20:00) A Neut Vac (test code = Neut Vac) Slight *ABN*(10/26/2012 06:20:00) A Basophils # (test code = Basophils #) 0.0 <=0.2 N Eosinophils # (test code = Eosinophils #) 0.1 <=0.5 N Eosinophils (test code = Eosinophils) 0.5 <=4.0 N Lymphocytes # (test code = Lymphocytes #) 1.8 1.0-5.5 N Segs-Bands # (test code = Segs-Bands #) 9.1 1.5-8.1 H Basophils (test code = Basophils) 0.3 <=1.0 N Monocytes (test code = Monocytes) 5.0 2.0-12.0 N Lymphocytes (test code = Lymphocytes) 15.8 20.0-40.0 L Segs (test code = Segs) 78.4 45.0-75.0 H RBC Morph (test code = RBC Morph) Normal (10/26/2012 06:20:00) N RDW (test code = RDW) 13.1 11.5-14.5 N Platelet (test code = Platelet) 86 133-450 L MPV (test code = MPV) 9.3 7.4-10.4 N RBC (test code = RBC) 3.88 4.70-6.10 L WBC (test code = WBC) 11.6 3.7-10.4 H MCHC (test code = MCHC) 35.1 32.0-36.0 N MCH (test code = MCH) 32.8 pg 27.0-31.0 H MCV (test code = MCV) 93.3 80.0-94.0 N Hct (test code = Hct) 36.2 42.0-54.0 L Hgb (test code = Hgb) 12.7 14.0-18.0 L [facility] B[facility] FPDSOID0596-80-90 21:10:00* Test Item Value Reference Range Interpretation Comme nts RBC product (test code = RBC product) Product available (10/21/2012 15:10:00) N ABO/Rh (test code = ABO/Rh) A POS Antibody Scrn (test code = Antibody Scrn) Negative (10/21/2012 15:10:00) N [facility] Consult Notes Date/Time Note Provider Source 2024-08-10 13:52:13 NUTRITION ASSESSMENT - ADULT Unit: 3CP Reason for RD Encounter: follow-up Findings Nutrition Diagnosis: Nutrition Diagnosis: Inadequate oral intake related to AMS and intubated as evidenced by NPO status and requiring enteral nutrition for nutrient. EVALUATION : Resolved * Interventions and Recommendation: 1) order PB&J sandwich daily (pm) to enjoy between meal times 2) continue regular diet. NUTRITION RISK: Low, in 8-10 days Next Date for Nutrition Services Follow Up: 08/18/24 Communication : Primary team Rounded with multidisciplinary team Current Nutrition: Dietary Orders (From admission, onward) Start Ordered 08/09/24 1236 Adult Diet Regular Diet effective now Question: Diet type Answer: Regular 08/09/24 1235 PO/EN/PN Intakes: No data found. Nutrition Visit Information: 08/10: 3CP. Pt seen, reports eating 100% of meals. Not happy about long meal waiting time. RD rec pt to order 3 meals at once in the beginning of the day to avoid waiting time and duplicate call. Pt is also amenable to have nourishment to enjoy in between meal time. 08/03: Pt intubated. Requiring pressors (levo 7). OGT in place. Pt agitated, not sedated. Hx liver cancer with mets to bone. Positive drug panel. Team ordered MVI, thiamine, folic acid. SBT this afternoon, possible extubation. Team okay to start feeds if unable to extubate. Post rounds: planning to extubate this morning, see tube feed recs if unable to advance diet Anthropometrics: Height: 180.3 cm (5' 10.98") Height Method: Estimated Weight: 117 kg Weight Method: Estimated Body mass index is 35.99 kg/m?. [place] body weight: 75.3 kg (165 lb 14.8 oz) Adjusted ideal body weight: 92 kg (202 lb 11.7 oz) Wt Readings from Last 10 Encounters: 08/03/24 117 kg (257 lb 15 oz) Estimated Nutrition Needs: Weight Used for Equation Calculations: 78.2 kg (172 lb 6.4 oz) (IBW) Calculated Energy Needs Using Equations Height: 1.803 m (5' 10.98") Weight Used for Equation Calculations: 78.2 kg (172 lb 6.4 oz) (IBW) Energy Equation Used: Rule of thumb (kcal/kg) Energy Lower Range: 25 (kcal/kg) Energy Upper Range: 30 (kcal/day) Energy Needs Lower Range: 1955 kcal/day (kcal/day) Energy Needs Upper Range: 2346 kcal/day [place] Equation (Critically Ill Patients): 452 Minute Ventilation (L/min): 6.6 L/min Temp: 36.7 ?C (98 ?F) Estimated Protein Needs (g/kg) Protein Lower Range: 1.2 (g/kg) Protein Upper Range: 1.5 (g/day) Protein Lower Range: 94 g/day (g/day) Protein Upper Range: 117 g/day Fluid Needs Fluid Needs Method: mL/kg/day; Or per MD (mL/kg) Fluid Needs: 30 (mL/day) Fluid Needs (Calculated): 2346 mL/kg/day Nutrition Physical Findings per clinical secretary: Orientation Level: Oriented X4 O2 Delivery Method: Nasal cannula Gastrointestinal (WDL): WDL Abdomen Inspection: Rounded Abdominal Tenderness: Soft; Nontender Bowel Sounds: All quadrants Bowel Sounds (All Quadrants): Active Last BM Date: 08/06/24 LUE: Full movement RUE: Full movement LLE: Full movement RLE: Full movement Edema: Generalized Generalized Edema: Non-pitting LUE Edema: Dependent RUE Edema: Dependent LLE Edema: Dependent RLE Edema: Dependent Gastric Tube 08/02/24 Orogastric Center mouth (Active) Wound 08/02/24 Traumatic Anterior;Right Knee (Active) Wound 08/02/24 Traumatic Left;Lateral Calf (Active) Wound 08/02/24 Other (Comments) Bilateral Buttock (Active) Wound 08/02/24 Other (Comments) Bilateral;Circumferential;Lo wer Leg (Active) Wound 08/02/24 Multiple scattered (Active) Nutrition Focused Physical Exam - Muscles and Fat: Assessment of Muscle Status Date Assessed: 08/03/24 Muscle Status: No change from prior exam (08/10) [place]: Xzfv-eb-wpredtcg deficit: Slight depression Assessment of Fat Status Date Assessed: 08/03/24 Fat Status: No change from prior exam (08/10) Basic Information: Admitting diagnosis: AMS (altered mental status) [R41.82] Altered mental status, unspecified altered mental status type [R41.82] Clinical course: The patient is a 69 year old male who was found sitting on a bench outside with bystanders report seeing him sitting there all day. Per report, he was altered and combative on scene but moving all extremities. Given 50mg ketamine IN, 100 serg IM, 10 vec IN, and 30 etomidate by life flight for intubation. The patient has a history of primary liver cancer with metastases to the bone. He is not on any anticoagulation. PMHX limited due to patient's current condition and daughter/son being unsure of any hx besides cancer. Medications: diclofenac sodium, 2 g, Topical, TID enoxaparin, 40 mg, Subcutaneous, Daily oxybutynin XL, 10 mg, Oral, Daily polyethylene glycol (PEG) 3350, 17 g, Oral, Daily propranolol, 20 mg, Oral, BID sennosides, 1 tablet, Oral, Nightly sodium chloride, 10 mL, Intravenous, q12h PRN medications: acetaminophen, dextrose, dextrose, glucagon, hyoscyamine, nystatin, artificial tears, sodium chloride, sodium chloride Labs: Pertinent Labs : Lab Results Component Value Date Sodium Lvl 138 08/10/2024 Potassium Lvl 4.2 08/10/2024 Chloride Lvl 107 08/10/2024 CO2 Lvl 25.3 08/10/2024 BUN 18 08/10/2024 Creatinine Lvl 0.66 (L) 08/10/2024 Glucose Lvl 134 (H) 08/10/2024 POC Glu 170 (H) 08/10/2024 Lab Results Component Value Date Calcium Lvl 8.4 08/10/2024 Magnesium 1.78 08/10/2024 Phosphorus Lvl 3.4 08/10/2024 Lab Results Component Value Date AST 49 (H) 08/10/2024 ALT 24 08/10/2024 Alkaline Phosphatase 175 (H) 08/10/2024 No results found for: "HGBA1C" Review / Management: I/O 24 HRS: No intake or output data in the 24 hours ending 08/10/24 1354 Monitoring and Evaluation: MONITORING AND EVALUATION: Weight changes, Muscle wasting, Fat wasting, Digestive/abdominal assessment, Nutrition Intake : EN intake and tolerance, and Labs: nutrition related labs GOAL: Initiate nutrition: Evaluation : Continues to meet and >75% of estimated needs met: Evaluation : Continues to meet Registered Dietitian: La Leblanc MS, RD, LD Thursday-Thursday office phone [phone] Thursday-Thursday pager [phone] Weekend/On-call pager [phone] [facility] 2024-08-08 16:29:20 Interventional Radiology Consultation August 08, 2024 Interventional Radiology consulted for this 69 y.o. male with hx of liver biopsy for and image guided abdominal / pelvic lymph node biopsy under moderate sedation . Informed consent obtained at bedside, risks, benefits and alternatives discussed in detail. Please keep patient NPO after midnight in preparation for the procedure. No acute changes in physical exam performed on 08/08/[address] Garcia . Case approved and reviewed by Dr. Felix. Thank you for allowing me to participate in the care of Abad Harrington. Sloop Captain Physician Ihsan Andino 2024-08-06 13:27:25 [place] Oncology Consult Note Chief Complaint Patient presents with Altered Mental Status Heat Exposure History Of Present Illness Abad Harrington is a 69 y.o. M, who was found sitting on a bench outside with bystanders report seeing him sitting there all day. Per report, he was altered and combative on scene but moving all extremities. Given 50mg ketamine IN, 100 serg IM, 10 vec IN, and 30 etomidate by life flight for intubation. The patient has a history of primary liver cancer with metastases to the bone. He is not on any anticoagulation. PMHX limited due to patient's current condition and daughter/son being unsure of any hx besides cancer. Talking to patient, he has a reported history of liver cancer, although does not remember where this was diagnosed. He says he would like to pursue treatment options if they are available. He denies any other concerns at this time. Oncology History No history exists. Past Medical History He has no past medical history on file. Surgical History He has no past surgical history on file. Social History He has no history on file for tobacco use, alcohol use, and drug use. Family History No family history on file. Allergies Patient has no known allergies. Review of Systems A 12-point review of systems was conducted including General, Cardiac, Endocrine, Heme, Lymph, Psych, Neuro, Respiratory, GI, , Skin, MSK and is negative except for what is mentioned in the HPI. Last Recorded Vitals Blood pressure 111/61, pulse 88, temperature 36.9 ?C (98.4 ?F), resp. rate 19, height 1.803 m (5' 10.98"), weight 117 kg (257 lb 15 oz), SpO2 92%. Physical Exam: ECOG = 3 General - Awake, alert, appears stated age, in no apparent distress HEENT- Normocephalic, extraocular muscles intact, pupils round and reactive to light, moist mucous membranes. CVS - RRR, normal S1/S2, no gallops, no murmurs Pulmonary - Lungs clear to auscultation bilaterally, no adventitious breath sounds Gastrointestinal - Soft, nontender to palpation, nondistended, bowel sounds present. Musculoskeletal - Full range of motion of upper and lower extremities bilaterally. Skin - Warm to touch. Negative for any skin lesions Neurological - Reflexes present in all joints. CN II - X intact, no focal neurological deficits Extremities - No cyanosis, no rashes, no pitting edema Psychiatric - Appropriate mood and behavior, cooperative with exam Labs Pertinent Labs : Lab Results Component Value Date WBC 5.15 08/06/2024 Hgb 12.8 08/06/2024 Hct 39.1 08/06/2024 Plt Count 154 (L) 08/06/2024 Lab Results Component Value Date Sodium Lvl 140 08/06/2024 Potassium Lvl 4.1 08/06/2024 Chloride Lvl 107 08/06/2024 CO2 Lvl 29.5 08/06/2024 BUN 14 08/06/2024 Creatinine Lvl 0.74 08/06/2024 Glucose Lvl 98 08/06/2024 Lab Results Component Value Date AST 40 08/06/2024 ALT 19 08/06/2024 Alkaline Phosphatase 129 (H) 08/06/2024 Assessment and Plan: Problem List Items Addressed This Visit None Problem List: Likely metastatic cancer (unconfirmed primary) Bone pain 2/2 metastases Work-up: CT brain: calvarial lesion present CT abdomen: bone metastases, intraperitoneal soft tissue deposits, bulky pelvic/inguinal LAD Plan/Recommendations: -Patient has cancer of unknown primary that is metastatic to the bone. Primary is unconfirmed at this time. Although patient says he has liver cancer, not seen on imaging and would be best to obtain biopsy. -Recommend IR consult to obtain biopsy. -Order CEA, CA 19-9, LDH, PSA. -Consider radiation oncology consult on Thursday to see if irradiation of any painful bone lesions for palliation might be appropriate. -Edema is not seen on CT brain, so steroids would not be needed at this time. Steroids only needed if brain edema is present. -The rest per primary team. Patient seen and plan of care discussed with Dr. Villa. Bill Chris MD PGY-5 Fellow, Hematology/Oncology [facility] I personally saw and examined Mr. Harrington with Dr. Khan, reviewed relevant clinical, imaging and lab data with the patient and the oncology team and supervised the formulation of the assessment and plan described above. Mr. Harrington is a 69 y/o apparently homeless man who has been admitted with altered mental status and found to have diffuse sclerotic lesions of the axial, appendicular and calvarial bone as well as intraperitoneal soft tissue deposits as cirrhotic appearing liver without masses visible on single phase venous exam, enlarged 17.2 cm spleen, moderate ascites, bulky confluent retroperitoneal, pelvic and inguinal adenopathy, largest retroperitoneal mass 4.7 x 4.2 cm and 3.1 x 5.6 cm inguinal pelvic node. Hepatocellular, prostate, colon and lymphoma are in the differential. I recommend an AFP (pending), CEA, CA19-9, LDH and PSA as well as a liver MRI. Most accessible biopsy site is likely the aggregate binh masses. Once histological diagnosis established, additional staging and treatment recommendations to follow. Socioeconomic and financial barriers are likely to be major impediments to therapy thus psychosocial support service consults advised. Sloop Captain Physician Ihsan Andino 2024-08-03 09:52:18 Associated Order(s): IP CONSULT TO NUTRITION SERVICES NUTRITION ASSESSMENT - ADULT Unit: MICU Reason for RD Encounter: consult - tube feeds Findings Nutrition Diagnosis: Nutrition Diagnosis: Inadequate oral intake related to AMS and intubated as evidenced by NPO status and requiring enteral nutrition for nutrient. * Interventions and Recommendation: 1) If unable to advance diet following extubation, Start tube feeds - Peptamen AF @ 80 (2112 kcal, 133 gm protein / 22 hrs) - start at 10 ml/hr and advance by 10 mL q4h to goal NUTRITION RISK: Moderate, in 5-7 days Next Date for Nutrition Services Follow Up: 08/10/24 Communication : Primary team Rounded with multidisciplinary team Current Nutrition: Dietary Orders (From admission, onward) Start Ordered 08/02/24 2248 NPO Diet Diet effective now 08/02/24 2248 Orderered Tube Feeds and Supplements Medication Dose Route Frequency Provider Last Rate Last Admin None PO/EN/PN Intakes: No data found. Nutrition Visit Information: 08/03: Pt intubated. Requiring pressors (levo 7). OGT in place. Pt agitated, not sedated. Hx liver cancer with mets to bone. Positive drug panel. Team ordered MVI, thiamine, folic acid. SBT this afternoon, possible extubation. Team okay to start feeds if unable to extubate. Post rounds: planning to extubate this morning, see tube feed recs if unable to advance diet Anthropometrics: Height: 180.3 cm (5' 10.98") Height Method: Estimated Weight: 117 kg Weight Method: Estimated Body mass index is 35.99 kg/m?. [place] body weight: 75.3 kg (165 lb 14.8 oz) Adjusted ideal body weight: 92 kg (202 lb 11.7 oz) Wt Readings from Last 10 Encounters: 08/03/24 117 kg (257 lb 15 oz) Estimated Nutrition Needs: Weight Used for Equation Calculations: 78.2 kg (172 lb 6.4 oz) (IBW) Calculated Energy Needs Using Equations Height: 1.803 m (5' 10.98") Weight Used for Equation Calculations: 78.2 kg (172 lb 6.4 oz) (IBW) Energy Equation Used: Rule of thumb (kcal/kg) Energy Lower Range: 25 (kcal/kg) Energy Upper Range: 30 (kcal/day) Energy Needs Lower Range: 1955 kcal/day (kcal/day) Energy Needs Upper Range: 2346 kcal/day [facility] Equation (Critically Ill Patients): 452 Minute Ventilation (L/min): 10.8 L/min Temp: (!) 35.9 ?C (96.6 ?F) Estimated Protein Needs (g/kg) Protein Lower Range: 1.2 (g/kg) Protein Upper Range: 1.5 (g/day) Protein Lower Range: 94 g/day (g/day) Protein Upper Range: 117 g/day Fluid Needs Fluid Needs Method: mL/kg/day; Or per MD (mL/kg) Fluid Needs: 30 (mL/day) Fluid Needs (Calculated): 2346 mL/kg/day Nutrition Physical Findings per clinical secretary: Orientation Level: Unable to assess O2 Delivery Method: Endotracheal tube Gastrointestinal (WDL): WDL Gastric Tube 08/02/24 Orogastric Center mouth (Active) Wound 08/02/24 Traumatic Anterior;Right Knee (Active) Wound 08/02/24 Traumatic Left;Lateral Calf (Active) Wound 08/02/24 Other (Comments) Bilateral Buttock (Active) Wound 08/02/24 Other (Comments) Bilateral;Circumferential;Lo wer Leg (Active) Wound 08/02/24 Multiple scattered (Active) Nutrition Focused Physical Exam - Muscles and Fat: Assessment of Muscle Status Date Assessed: 08/03/24 [place]: [id number] deficit: Slight depression Assessment of Fat Status Date Assessed: 08/03/24 Fat Status: No deficits noted Basic Information: Admitting diagnosis: AMS (altered mental status) [R41.82] Clinical course: The patient is a 69 year old male who was found sitting on a bench outside with bystanders report seeing him sitting there all day. Per report, he was altered and combative on scene but moving all extremities. Given 50mg ketamine IN, 100 serg IM, 10 vec IN, and 30 etomidate by life flight for intubation. The patient has a history of primary liver cancer with metastases to the bone. He is not on any anticoagulation. PMHX limited due to patient's current condition and daughter/son being unsure of any hx besides cancer. Medications: artificial tears, 1 Application, Both Eyes, q6h AIDA azithromycin, 500 mg, Intravenous, q24h cefepime, 1 g, Intravenous, q6h chlorhexidine, 15 mL, Mouth/Throat, 4x daily folic acid, 1 mg, Oral, Daily heparin, 7,500 Units, Subcutaneous, q8h [facility] hydrocortisone sodium succinate, 100 mg, Intravenous, Once lansoprazole, 30 mg, Per G Tube, Daily multivitamin, 1 tablet, Oral, Daily sodium chloride, 10 mL, Intravenous, q12h thiamine, 100 mg, Oral, Daily vancomycin, 1.25 g, Intravenous, q12h fentaNYL, 50-200 mcg/hr, Last Rate: 100 mcg/hr (08/03/24 0999) midazolam, 1-10 mg/hr, Last Rate: Stopped (08/02/24 3795) norepinephrine, 5-70 mcg/min, Last Rate: 7 mcg/min (08/03/24 0928) PRN medications: calcium gluconate, chlorhexidine, magnesium sulfate, nystatin, potassium & sodium phosphates OR potassium & sodium phosphates, potassium chloride OR potassium chloride OR potassium chloride OR Potassium chloride, sodium chloride, sodium chloride, sodium phosphates 45 mmol in sodium chloride 0.9 % 250 mL IVPB, Pharmacy to dose vancomycin AND Vancomycin Pharmacy Dosing Labs: Pertinent Labs : Lab Results Component Value Date POC A Na 138 08/03/2024 Sodium Lvl 142 08/02/2024 POC A K 3.7 08/03/2024 Potassium Lvl 3.8 08/02/2024 POC Chloride 107 08/03/2024 Chloride Lvl 110 (H) 08/02/2024 CO2 Lvl 22.9 08/02/2024 BUN 23 08/02/2024 Creatinine Lvl 0.95 08/02/2024 POC A Glu 122 (H) 08/03/2024 Glucose Lvl 127 (H) 08/02/2024 POC Glu 102 (H) 08/03/2024 Lab Results Component Value Date Calcium Lvl 8.3 08/02/2024 Magnesium 2.00 08/02/2024 Phosphorus Lvl 4.0 08/02/2024 Lab Results Component Value Date AST 34 08/02/2024 ALT 20 08/02/2024 Alkaline Phosphatase 134 (H) 08/02/2024 No results found for: "HGBA1C" Review / Management: I/O 24 HRS: Intake/Output Summary (Last 24 hours) at 08/03/2024 0952 Last data filed at 08/03/2024 0828 Gross per 24 hour Intake 1652.19 ml Output 950 ml Net 702.19 ml Monitoring and Evaluation: MONITORING AND EVALUATION: Weight changes, Muscle wasting, Fat wasting, Digestive/abdominal assessment, Nutrition Intake : EN intake and tolerance, and Labs: nutrition related labs GOAL: Initiate nutrition: and >75% of estimated needs met: Marta Hameed MS RD [facility] M[facility]F Pager: [phone] Weekend/On-call pager: [phone] [facility] History and Physical Notes Date/Time Note Provider Source 2024-08-02 23:25:06 Images from the original note were not included. MICU GOLD NOTE Note Type: [History and Physical] Subjective/HPI: The patient is a 69 year old male who was found sitting on a bench outside with bystanders report seeing him sitting there all day. Per report, he was altered and combative on scene but moving all extremities. Given 50mg ketamine IN, 100 serg IM, 10 vec IN, and 30 etomidate by life flight for intubation. The patient has a history of primary liver cancer with metastases to the bone. He is not on any anticoagulation. PMHX limited due to patient's current condition and daughter/son being unsure of any hx besides cancer. Urology consulted for difficult Ornelas placement. 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 The meatus was visualized and noted to be pinpoint. Upon arrival to the ICU, patient is intubated on ventilator AC/VC+ peep 10, FiO2 70%, , sedated on fentanyl 100/hr and versed 3mg/hr. Blood pressure 91/49 (63), arterial line in place, heart rate 86, RR 24, O2 saturation 97%. On physical exam, the patient has a suprapubic catheter in place, obesity with ascites, crusted skin bilateral forearms, and a phimotic penis. The patient's real name is Abad Harringtno and 1955. Patient History Surgical History: Recent Surgeries in Emergency Medicine No cases to display Medications: No current outpatient medications Allergies: No Known Allergies Family History: family history is not on file. Social History: Social Drivers of Health Tobacco Use: Not on file Alcohol Use: Patient Unable To Answer (08/02/2024) AUDIT-C Frequency of Alcohol Consumption: Patient unable to answer Average Number of Drinks: Patient unable to answer Frequency of Binge Drinking: Patient unable to answer Financial Resource Strain: Not on file Food Insecurity: Not on file Transportation Needs: Not on file Physical Activity: Not on file Stress: Not on file Social Connections: Not on file Intimate Partner Violence: Patient Unable To Answer (08/02/2024) Humiliation, Afraid, Rape, and Kick questionnaire Fear of Current or Ex-Partner: Patient unable to answer Emotionally Abused: Patient unable to answer Physically Abused: Patient unable to answer Sexually Abused: Patient unable to answer Depression: Not on file Housing Stability: Not on file Utilities: Not on file Health Literacy: Not on file Review of Systems: Review of Systems Unable to obtain secondary to clinical status Exam Physical Exam: Vitals reviewed. Constitutional: Appearance: He is obese. Interventions: He is sedated, intubated and restrained. HENT: Head: Normocephalic and atraumatic. No raccoon eyes, Hannah's sign or laceration. Nose: Nose normal. Mouth/Throat: Mouth: Mucous membranes are dry. Eyes: Conjunctiva/sclera: Conjunctivae normal. Pupils: Pupils are equal, round, and reactive to light. Comments: Unable to assess EOM, intubated and sedated Cardiovascular: Rate and Rhythm: Normal rate and regular rhythm. Pulses: Normal pulses. Dorsalis pedis pulses are 2+ on the right side and 2+ on the left side. Posterior tibial pulses are 2+ on the right side and 2+ on the left side. Heart sounds: Normal heart sounds. Pulmonary: Effort: He is intubated. Comments: Intubated, ETT in place, on mechanical ventilation Chest: Chest wall: No deformity or crepitus. Abdominal: General: Bowel sounds are normal. There is distension. Palpations: Abdomen is soft. Genitourinary: Comments: Suprapubic catheter in place, phimotic penis Skin: General: Skin is warm and dry. Capillary Refill: Capillary refill takes less than 2 seconds. Findings: Rash present. Rash is crusting and scaling. Neurological: Comments: Unable to assess, intubated and sedated 08/02/2024 5:30 PM 08/02/2024 6:00 PM 08/02/2024 7:38 PM 08/02/2024 7:55 PM 08/02/2024 8:15 PM 08/02/2024 10:54 PM 08/02/2024 11:00 PM Vitals BMI 36.1 kg/m2 BSA (m2) 2.42 m2 Systolic 101 103 Diastolic 59 58 Heart Rate 118 116 104 97 89 88 Temp 37.2 ?C (99 ?F) 36.8 ?C (98.2 ?F) 35.6 ?C (96.1 ?F) 35.7 ?C (96.3 ?F) 34.9 ?C (94.8 ?F) 34.9 ?C (94.8 ?F) Resp 25 27 24 19 17 25 Height (in) 1.803 m (5' 11") Weight (lb) 258.82 Impression Procedures Assessment/Plan: #Acute toxic metabolic encephalopathy #Hypotension, Distributive versus Hypovolemic Shock #Dysrhythmia #Acute hypoxemic respiratory failure requiring invasive mechanical ventilation #Right sided pleural effusion #L sided consolidation, atelectasis versus pneumonia Neuro: #Acute toxic metabolic encephalopathy Sedation: wean versed and fentanyl, transition to precedex -RASS Goal: 0 to -1 -Restraints: bilateral wrist while intubated -pending UDS/toxicology workup, ethanol Ammonia WNL -CT Brain: No acute intracranial hemorrhage or signs of edema. A 1.2 cm left frontal calvarial sclerotic lesion likely represents a metastasis given findings on concurrent CTA head and neck. CV #Hypotension, Distributive versus Hypovolemic Shock #Dysrhythmia Keep Mag >2 and K>4 Give 2 g mag now for replacement Formal echo pending POCUS showing RV dilation, no effusion Received 1 L of IVF, use pressors if needed and hold off on fluids Vasopressors: Levophed as needed Troponin 82 BNP 133 Respiratory #Acute hypoxemic respiratory failure requiring invasive mechanical ventilation #Right sided pleural effusion #L sided consolidation, atelectasis versus pneumonia Ventilator (mode+settings): AC/VC+, peep 5, FiO2 70% -Ventilator plan: Wean as tolerated -Spontaneous breathing trial indicated: in the morning -Head of bed @ 30?-45? Diagnostic thoracentesis deferred to day team. Unable to obtain consent CT Chest showing R sided pleural effusion with left sided consolidation versus atelectasis GI #Metastatic liver cancer with metastases to bones #Inability to place ornelas catheter placement s/p suprapubic catheter placement by urology Nutrition: consider trickle feeds tomorrow -OG Tube in place -suprapubic catheter in place. Urology consulted -PUD prophylaxis: Protonix CT abdomen/pelvis showing mild-moderate ascites, nodular liver, possible cirrhosis No pocket for paracentesis ID #Pneumonia -Microbiology results: pending blood cultures -Antibiotic(s): vancomycin, azithromycin, cefepime -Day of antibiotics: 1 -pending UA, sputum cultures, MRSA nares, and urine legionella Renal/electrolytes -Electrolyte replacement: K and Mg -Cr 0.89 Heme/Onc #Metastatic liver cancer with bone mets -hemoglobin stable Endocrine -Glucose control: SSI prn -Glucose range: 140-180 Musculo-skeletal -Physical therapy consult: when applicable Consults: urology ICU CHECKLIST -Code Status: Full code -Feeds/fluids: n/a -Suprapubic catheter Date placed: 08/02. -Sedation/restraints: transition to precedex -Thromboprophylaxis: heparin subq -Head of bed: elevated -Ulcer prophylaxis: protonix -Glycemic control: SSI prn -SBT: in am -Bowel regimen: miralax prn -Indwelling lines: arterial line, PIV -De-escalate drugs: Fentanyl, versed Family contacts: patient's son Nisha Washington, DO Emergency Medicine, PGY-1 Attending note: I personally saw and examined the patient. I reviewed the patient's records. I reviewed and interpreted imaging and laboratory data. Case was discussed with MICU team and developed a plan of care with my direct involvement. I agree with the resident's note. 69 year old man with: #1. Acute toxic metabolic encephalopathy #2. Acute hypoxemic respiratory failure requiring invasive mechanical ventilation with concern for aspiration pneumonia #3. Inability to place ornelas catheter placement s/p suprapubic catheter placement by urology #4. Metastatic ?liver cancer with metastases to bones, retroperitoneal and inguinal lymph nodes and peritoneum #5. Shock, suspect distributive requiring vasopressor support #6. Right ventricular dilatation but normal function on bedside echocardiogram #7. Right pleural effusion #8. Decompensated cirrhosis Continue mechanical ventilation support, daily SAT/SBT - stop midazolam if able and transition to propofol or precedex. Broad spectrum antibiotics, follow infectious workup. Deferred thoracentesis overnight due to inability to get consent from family, no good pocket for paracentesis on ultrasound. Check TEG. Vasopressor support to target MAP > 65 mmHg. Obtain formal echocardiogram. Thiamine supplementation. Check urine drug screen. DVT and GI prophylaxis. Supportive care. - - - - - - - - - - - Date of service: 08/02/2024 This patient is critically ill due to presenting with an illness that impairs one or more vital organ systems. There was a high probability of imminent or life threatening deterioration in the patient's condition. I spent a cumulative 80 minutes of non-concurrent critical care time directly related to this individual patient's care involving the evaluation, coordination, and management of the patient. This includes only time spent at the immediate bedside or elsewhere on the patient's floor or unit and is not inclusive of any time spent performing invasive procedures. Rina Rubio MD Hand Tile Makercommercial account officer Department of Pulmonary, Critical Care and Sleep Medicine [facility] Pulmonary Disease Physician [facility] Procedure Notes Date/Time Note Provider Source 2024-08-09 11:41:21 Interventional Radiology Brief Postprocedure Note Procedure: IR body biopsy lymph node Preprocedure Diagnosis: Lymphadenopathy Postprocedure Diagnosis: Lymphadenopathy Staff: Staff Role Jessica Falcon MD Reporting Lead Kelly Bowman Primary Class Teacher Joana [place] Primary Class Teacher Gary Agosto, motorcycle mechanic apprentice Nurse Georgie Aguayo MD Radiologist Bay Orellana, motorcycle mechanic apprentice Nurse Description of procedure: Ultrasound guided right inguinal lymph node biopsy was performed. Of note, it was discussed with the team that a retroperitoneal lymph node biopsy would be preferred in this patient however, he was unable to tolerate prone positioning secondary to pain and abnormal vital signs. We recommend retroperitoneal biopsy with general anesthesia if R going lymph node biopsy is non diagnostic. Estimated Blood Loss: None Specimens 4 25G FNA samples Findings: Ultrasound guided biopsy of right inguinal lymph node was attempted. Of note, it was discussed with the team that a retroperitoneal lymph node biopsy would be preferred in this patient however he was unable to tolerate prone positioning secondary to pain and abnormal vital signs. We recommend retroperitoneal biopsy with general anesthesia if R going lymph node biopsy is non diagnostic. Plan: F/u FNA results, patient may need retroperitoneal biopsy under anesthesia if FNA is nondiagnostic Complications: None Anesthesia: Local See detailed result report with images in PACS. The patient tolerated the procedure well without incident or complication and is in stable condition. Jessica Falcon MD, PGY4 Department of Interventional Radiology Sloop Captain Physician Ihsan Andino 2024-08-02 22:10:10 Urology Procedure Note Pre-procedure Diagnosis: Urinary retention Post-procedure Diagnosis: Urinary retention Procedure: 16 Fr suprapubic Malecot catheter insertion Attending Surgeon(s): Salvador Guzman MD Performed by: Laney Jimenez MD Description: Patient was intubated and sedated at bedside prior to procedure. Patient draped and prepped with chlorhexidine on the suprapubic abdomen, about 2 fingerbreadth above the pubic symphysis. Bedside ultrasound was used to confirm positioning of the bladder and to ensure there were no loops of bowel at the trajectory of the planned suprapubic tube. 11-blade was used to make midline incision, ensuring incising the fascia. 16 Fr Malecot catheter introducer was used to otero the abdomen and positioning was confirmed on bedside ultrasound. There was immediate drainage of yellow-aisha colored urine. The catheter was secured with 2-0 nylon suture. Estimated Blood Loss: 5 cc Complications: None Findings: 16 Fr SPT draining clear aisha urine Disposition: Intubated and Sedated (was prior to procedure) Laney Jimenez MD Urologic Surgery PGY-3 [facility] [id number] Urology Physician Ihsan Andino Notes Date/Time Note Provider Source 2024-11-06 16:30:00 [id number] [address] PATIENT NAME: ABAD HARRINGTON ADMIT DATE: 10/01/24 ACCOUNT NO: [id number] DISCHARGE DATE: 10/15/24 ROOM NO: [id number] REPORT TYPE: 360 - QUERY RESPONSE DOCUMENT DATE OF : 55 AGE: 69 SEX: M ADMITTING PHYSICIAN:Luisa Vincent MD ATTENDING PHYSICIAN:Luisa Vincent MD Provider Query QUERY TEXT: Condition General 360MD Query related questions should be directed to: ?[place] Query Helpline [phone]? Based on your clinical judgement can you clarify if the diagnosis of Sepsis was Confirmed and Treated Not confirmed other more appropriate diagnosis The patient's Clinical Indicators include: H and P 10/01/2024 Chief complaint: Sepsis bacteremia Progress Note 10/09/2024 Sepsis with pneumonia on IV antibiotics Bacteremia, blood cultures from other hospital reportedly positive for strep, blood cultures here pending D/C Summary 10/15/2024 Discharge Diagnosis Acute Hypoxic Respiratory Failure Liver Cirrhosis Pneumonia Options provided: -- Respond - Create new note now -- Disagree - Not applicable / Not valid -- Disagree - Clinically unable to determine / Unknown -- Assign to another provider QUERY RESPONSE: Provider was clinically unable to determine a response for this query. Query created by: Elizabeth Brown on 10/24/2024 2:38 PM at 1630 PATIENT NAME: ABAD HARRINGTON [facility] 2024-10-15 14:44:00 [facility]) Pulmonology Progress Note REPORT#:[id number] REPORT STATUS: Signed REPORT INITIALIZATION DATE:10/15/24 TIME: 144 PATIENT: ABAD HARRINGTON UNIT #: [id number] ROOM/BED: [place] [id number] : 55 AGE: 69 SEX: M ATTEND: Luisa Vincent MD ADM AUTHOR: Arsh Tamez MD REPT SERVICE DT/TIME: 10/15/24 1444 * ALL edits or amendments must be made on the electronic/computer document * Subjective Chief complaint: AMS. Comments: doing abou t the same remains on oxygen hematuria persists ROS: no n/v/cp/dimas Objective General VS/I O: Last Documented: Result Date Time Pulse Ox 90 10/15 1115 B/P 109/65 10/15 111 B/P Mean 79.7 10/15 1115 Temp 98.2 10/15 1115 Pulse 84 10/15 1115 Resp 16 10/15 1115 O2 Delivery Room air 10/15 0637 O2 Flow Rate 1 10/14 0945 FiO2 21 10/14 0636 24 hour I O ending at 0700: 10/14 1900 10/15 0700 Intake Total Output Total 2400 750 Balance -2400 -750 Output, Urine 2400 750 PATIENT WEIGHT: Weight (lb): 243 Weight (oz): 2.72 Weight (kg): 110.300 Medications: Active Meds + DC'd Last 24 Hrs Thiamine HCl (THIAMINE HCL) 100 MG DAILY PO Furosemide (LASIX) 40 MG DAILY PO Spironolactone (ALDACTONE) 25 MG BID PO Lactulose (LACTULOSE) 20 GM BID 9A 5P PO Midazolam HCl (VERSED) 5 MG ASDIR IV (CKD) Albuterol/Ipratropium (IPRATR-ALBUTEROL 0.5-3 MG/3 ML) 3 ML RTQ6H NEB Guaifenesin (MUCINEX ER) 600 MG BID PO Sodium Chloride (SODIUM CHLORIDE) 10 ML BID IV Sodium Chloride (SODIUM CHLORIDE) 10 ML ASDIR PRN IV Albumin Human (ALBUMIN HUMAN) 400 ML ONCE ONE IV Folic Acid (FOLIC ACID) 1 MG DAILY PO Multivitamins Therapeutic (THERAGRAN) 1 TAB DAILY PO Calcium Gluconate (Calcium Gluconate 1 GM/NS 50 mL (B2)) 50 ML ASDIR PRN IV (DC) Calcium Gluconate (Calcium Gluconate 1 GM/NS 50 mL (B2)) 50 ML ASDIR PRN IV (DC) Lorazepam (ATIVAN) 1 MG Q4H PRN PRN IV Magnesium Sulfate (MAGNESIUM SULF 2 GM/SWI 50 ML) 50 ML ASDIR PRN IV (DC ) Potassium Chloride (POTASSIUM CHLORIDE 20 MEQ/100 ML PREMIX) 100 ML ASDIR PRN IV (DC) Potassium Chloride (POTASSIUM CHLORIDE 20 MEQ/100 ML PREMIX) 100 ML ASDIR PRN IV (DC) Potassium Chloride (POTASSIUM CHLORIDE 20 MEQ/100 ML PREMIX) 100 ML ASDIR PRN IV (DC) Potassium Chloride (POTASSIUM CHLORIDE 20 MEQ/100 ML PREMIX) 100 ML ASDIR PRN IV (DC) Potassium Phosphate (POTASSIUM PHOSPHATE) 15 MM ASDIR PRN IV (DC) Sodium Chloride (SODIUM CHLORIDE 0.9%) 100 ML Sodium Phosphate (SODIUM PHOSPHATE) 15 MMOL ASDIR PRN IV (DC) Sodium Chloride (SODIUM CHLORIDE 0.9%) 100 ML Sodium Phosphate (SODIUM PHOSPHATE) 20 MMOL ASDIR PRN IV (DC) Sodium Chloride (SODIUM CHLORIDE 0.9%) 100 ML Sodium Phosphate (SODIUM PHOSPHATE) 30 MMOL ASDIR PRN IV (DC) Sodium Chloride (SODIUM CHLORIDE 0.9%) 100 ML Sterile Water (WATER FOR INJECTION) 10 ML ASDIR PRN IV Dextrose/Water (DEXTROSE 10%) 125 ML ASDIR PRN IV (CKD) Dextrose/Water (DEXTROSE 10%) 250 ML ASDIR PRN IV (CKD) Dextrose/Water (DEXTROSE 10%) 125 ML ASDIR PRN IV (CKD) Dextrose/Water (DEXTROSE 10%) 250 ML ASDIR PRN IV (CKD) Glucagon (GLUCAGON) 1 MG ASDIR PRN IM Glucagon (GLUCAGON) 1 MG ASDIR PRN IM Physical Exam General appearance: chronically ill appearing Head/eyes: atraumatic, normocephalic, PERRL, EOMI, clear cornea, normal conjunctiva/sclera, normal fundi, normal eyelids/periorb. ENT: ENT: normal dentition, normal ear left, normal ear right, normal nose, normal pharynx, normal sinus Neck: full range of motion, non-tender, normal thyroid, supple/no meningismus, no bruit/NL carotids, no JVD, no lymphadenopathy, no masses or swelling Cardiovascular: regular rate rhythm Respiratory/chest: crackles, aerating well, symmetric expansion, no distress Abdomen: soft, non-tender, no distention, no guarding, no mass/organomegaly, no rebound Extremities: edema, moves all, normal capillary refill Musculoskeletal: full range of motion, normal inspection Neuro/KNOWLEDGE MANAGER: alert Skin: dry, intact Lymphatics: axilla normal, inguinal normal, neck normal, no lymphadenopathy Psychiatry: normal affect, normal judgment/insight, normal mood Results Results: labs reviewed, vital signs reviewed, x-ray personally reviewed, current med profile rev'd Diagnosis, Assessment Plan Free Text A P: 1. Sepsis resolved 2. Cirrhosis Decompensated GI following Ammonia elevated Lactulose s/p paracentesis 10/03 with removal of 5.6 L s/p repeat with 3L removed 3. Pleural effusion Possible hepatic hydrothorax? Follow symptoms 4. Hypoxemia Wean oxygen as tolerated 5. Altered mental status/ethanol abuse resolved 6. Pulmonary infiltrates likely aspiration pneumonia abx cont nebs and Mucinex s/p bronchoscopy 10/06. Follow cultures. pending dispo at 1445 RPT #:[id number] END OF REPORT [facility] 2024-10-15 12:16:00 [facility] ([facility]) Hospitalist Discharge Summary REPORT#:[id number] REPORT STATUS: Signed REPORT INITIALIZATION DATE:10/15/24 TIME: 1215 PATIENT: ABAD HARRINGTON UNIT #: [id number] ROOM/BED: [place] [id number] : 55 AGE: 69 SEX: M ATTEND: Luisa Vincent MD ADM AUTHOR: Lilly Torres SEARCH DEVELOPER REPT SERVICE DT/TIME: 10/15/24 1216 * ALL edits or amendments must be made on the electronic/computer document * General Information Discharge date: 10/15/24 Discharge diagnosis: Decompensated liver cirrhosis Hospital course: Acute hypoxic respiratory failure - Nasal cannula oxygen 3L - Pulmonary consult Decompensated cirrhosis of liver with anasarca and acute liver failure - hepatic encephalopathy - IV diuresis- Furosemide/ Paracentesus/ Lactulose - Hep pannel- HCV ab positive, will need outpatient work for HCV - S/P paracentesis 10/03 with removal of 5.6 L - 10/11: s/p paracentesis 2.4L of ascitic fluid removed. - Monitor electrolytes and labs - GI consult Pneumonia - S/p Ceftriaxone - Follow cultures- Negative - neb tx and Mucinex - S/P bronchoscopy 10/06. Altered mental status/ethanol abuse Hepatic encephalopathy - lactulose- 2 BM - improving ammonia - CIWA protocol - off Librium Hypocalcemia Chronic - TSH and PTH ordered - Replace - Recheck in a.m. - Nephrology consultation Urinary obstruction - ornelas placed by Urologist - Hematuria present Diabetes mellitus type 2 Sliding scale insulin- D'cd . Monitor closely Discussed with charge nurse DVT prophylaxis with Lovenox .- Pt had hematuria- Ornelas drained 1100ml hematuria. Per urology In the event the patient requires further bladder irrigation or continuous he likely will require cystoscopic placement of a three-way Ornelas catheter DC home Free Text DxA P Notes Free text DxA P notes: Acute hypoxic respiratory failure - Nasal cannula oxygen 3L - Pulmonary consult Decompensated cirrhosis of liver with anasarca and acute liver failure - hepatic encephalopathy - IV diuresis- Furosemide/ Paracentesus/ Lactulose - Hep pannel- HCV ab positive, will need outpatient work for HCV - S/P paracentesis 10/03 with removal of 5.6 L - 10/11: s/p paracentesis 2.4L of ascitic fluid removed. - Monitor electrolytes and labs - GI consult Pneumonia - S/p Ceftriaxone - Follow cultures- Negative - neb tx and Mucinex - S/P bronchoscopy 10/06. Altered mental status/ethanol abuse Hepatic encephalopathy - lactulose- 2 BM - improving ammonia - CIWA protocol - off Librium Hypocalcemia Chronic - TSH and PTH ordered - Replace - Recheck in a.m. - Nephrology consultation Urinary obstruction - ornelas placed by Urologist - Hematuria present Diabetes mellitus type 2 Sliding scale insulin- D'cd 10.10 Monitor closely Discussed with charge nurse DVT prophylaxis with Lovenox .- Pt had hematuria- Ornelas drained 1100ml hematuria. Per urology In the event the patient requires further bladder irrigation or continuous he likely will require cystoscopic placement of a three-way Ornelas catheter Med Rec Med Rec Discharge meds: Stop taking the following medications: PROPRANOLOL (INDERAL) 20 MG TAB 20 MILLIGRAM ORAL DAILY. Continue taking these medications: metFORMIN (metFORMIN) 500 MG TAB 500 MILLIGRAM ORAL TWICE DAILY. Instructions: TAKE WITH MEALS TAMSULOSIN ER (FLOMAX) (Unknown Strength) CAP.SR.24H Unknown Dose ORAL DAILY. Start taking the following new medications: SPIRONOLACTONE (ALDACTONE) 25 MG TAB 25 MILLIGRAM ORAL TWICE DAILY. Qty = 30 No Refills FUROSEMIDE (LASIX) 40 MG TAB 40 MILLIGRAM ORAL DAILY. Qty = 30 No Refills FOLIC ACID (FOLIC ACID) 1 MG TAB 1 MILLIGRAM ORAL DAILY. Qty = 30 No Refills THIAMINE (VITAMIN B-1) 100 MG TAB 100 MILLIGRAM ORAL DAILY. Qty = 30 No Refills Objective Head/Eyes: PERRL ENT: moist mucosal membranes Cardiovascular: normal capillary refill Respiratory: aerating well Abdomen: tenderness Free Text Obj Notes Free Text Obj Notes: PHYSICAL EXAMINATION General appearance: Arousable AMS 5 L nasal cannula Head/Eyes: atraumatic, normocephalic, PERRL, EOMI ENT: normal ear left, normal ear right, normal nose, normal pharynx Neck: full range of motion, supple/no meningismus Cardiovascular: normal S1/S2, regular rate rhythm Respiratory/chest: Hypoxia decreased breath sounds bilaterally Abdomen: soft, non-tender, normal bowel sounds Genitourinary: deferred Extremities: Bilateral leg edema Musculoskeletal: full range of motion, normal inspection Neuro/KNOWLEDGE MANAGER alert, oriented X 2, CNII-XII intact Skin: Lower extremity chronic changes Psychiatry: AMS Discharge Instructions PCP Discharge to: Home Health wPlan of Care Additional Discharge Routines: PCP Follow-Up, Mounter Smoking Pipe Follow-Up Diet: Resume Home Diet/Feeds Follow-up Appointments PCP follow-up: PCP: Undefined Provider PCP follow up timeframe: In 1-2 weeks Consulting provider 1: Provider 1: Hiro Hoang MD Specialty: Urology at 1218 at 1110 RPT #:[id number] END OF REPORT [facility] 2024-10-15 10:54:00 [facility] Gastroenterology Progress Note REPORT#:[id number] REPORT STATUS: Signed REPORT INITIALIZATION DATE:10/15/24 TIME: 105 PATIENT: ABAD HARRINGTON UNIT #: [id number] ROOM/BED: [place] [address] : 55 AGE: 69 SEX: M ATTEND: Luisa Vincent MD ADM AUTHOR: Ro Vickers [employer] INSPECTING DISPATCHER REPT SERVICE DT/TIME: 10/15/24 1054 * ALL edits or amendments must be made on the electronic/computer document * Ro Vickers 10/15/24 1054: Subjective Chief complaint: denies n/v/abd pain +hematuria Review of Systems All systems rev neg: except as marked Objective General VS/I O: Last Documented: Result Date Time Pulse Ox 91 10/15 1028 B/P 97/59 10/15 1028 B/P Mean 71.5 10/15 1028 Temp 98.2 10/15 1028 Pulse 85 10/15 1028 Resp 16 10/15 1028 O2 Delivery Room air 10/15 0637 O2 Flow Rate 1 10/14 0945 FiO2 21 10/14 0636 24 hour I O ending at 0700: 10/15 0700 10/14 1900 Intake Total Output Total 750 2400 Balance -750 -2400 Output, Urine 750 2400 PATIENT WEIGHT: Weight (lb): 243 Weight (oz): 2.72 Weight (kg): 110.300 Medications: Active Meds + DC'd Last 24 Hrs Thiamine HCl (THIAMINE HCL) 100 MG DAILY PO Furosemide (LASIX) 40 MG DAILY PO Spironolactone (ALDACTONE) 25 MG BID PO Lactulose (LACTULOSE) 20 GM BID 9A 5P PO Midazolam HCl (VERSED) 5 MG ASDIR IV (CKD) Albuterol/Ipratropium (IPRATR-ALBUTEROL 0.5-3 MG/3 ML) 3 ML RTQ6H NEB Guaifenesin (MUCINEX ER) 600 MG BID PO Sodium Chloride (SODIUM CHLORIDE) 10 ML BID IV Sodium Chloride (SODIUM CHLORIDE) 10 ML ASDIR PRN IV Albumin Human (ALBUMIN HUMAN) 400 ML ONCE ONE IV Folic Acid (FOLIC ACID) 1 MG DAILY PO Multivitamins Therapeutic (THERAGRAN) 1 TAB DAILY PO Calcium Gluconate (Calcium Gluconate 1 GM/NS 50 mL (B2)) 50 ML ASDIR PRN IV (DC) Calcium Gluconate (Calcium Gluconate 1 GM/NS 50 mL (B2)) 50 ML ASDIR PRN IV (DC) Lorazepam (ATIVAN) 1 MG Q4H PRN PRN IV Magnesium Sulfate (MAGNESIUM SULF 2 GM/SWI 50 ML) 50 ML ASDIR PRN IV (DC ) Potassium Chloride (POTASSIUM CHLORIDE 20 MEQ/100 ML PREMIX) 100 ML ASDIR PRN IV (DC) Potassium Chloride (POTASSIUM CHLORIDE 20 MEQ/100 ML PREMIX) 100 ML ASDIR PRN IV (DC) Potassium Chloride (POTASSIUM CHLORIDE 20 MEQ/100 ML PREMIX) 100 ML ASDIR PRN IV (DC) Potassium Chloride (POTASSIUM CHLORIDE 20 MEQ/100 ML PREMIX) 100 ML ASDIR PRN IV (DC) Potassium Phosphate (POTASSIUM PHOSPHATE) 15 MM ASDIR PRN IV (DC) Sodium Chloride (SODIUM CHLORIDE 0.9%) 100 ML Sodium Phosphate (SODIUM PHOSPHATE) 15 MMOL ASDIR PRN IV (DC) Sodium Chloride (SODIUM CHLORIDE 0.9%) 100 ML Sodium Phosphate (SODIUM PHOSPHATE) 20 MMOL ASDIR PRN IV (DC) Sodium Chloride (SODIUM CHLORIDE 0.9%) 100 ML Sodium Phosphate (SODIUM PHOSPHATE) 30 MMOL ASDIR PRN IV (DC) Sodium Chloride (SODIUM CHLORIDE 0.9%) 100 ML Sterile Water (WATER FOR INJECTION) 10 ML ASDIR PRN IV Dextrose/Water (DEXTROSE 10%) 125 ML ASDIR PRN IV (CKD) Dextrose/Water (DEXTROSE 10%) 250 ML ASDIR PRN IV (CKD) Dextrose/Water (DEXTROSE 10%) 125 ML ASDIR PRN IV (CKD) Dextrose/Water (DEXTROSE 10%) 250 ML ASDIR PRN IV (CKD) Glucagon (GLUCAGON) 1 MG ASDIR PRN IM Glucagon (GLUCAGON) 1 MG ASDIR PRN IM Physical Exam General appearance: alert, awake HEENT: anicteric, EOMI Neck: full range of motion, non-tender, supple/no meningismus Cardiovascular: normal S1/S2 Respiratory: no distress Abdomen: ascites, distended, normal bowel sounds Extremities: moves all Skin: dry, intact Diagnosis, Assessment Plan Free Text A P: 1. Cirrhosis of liver w/ascites will order hep panel, and INR - paracentesis - lactulose, lasix 2. Hepatic Encephalopathy II - ammonia 43 - lactulose 3. Pneumonia - pulmonary consulted 10/03 - low MELDNA score, HCV Ab positive, will need outpatient work for HCV 10/04 - increase lactulose to q2 hr till he wakes up Grade I-II hepatic encephalopathy 10/05 - still confused, stop librium, will use Ativan. decrease lactulose to q8hr sinc ammonia <40 its possible AMS from chronic abuse of ETOH - withrawl vs wernicke's 10/06 more awake today, no gi bleeding, resting 10/07 continue with lactulose, rectal tube in place on lasix 10/08-HE I to II, cont lactulose 10/09-Having 2 BMs per day. Continues confused. -Await paracentesis 10/10 continue with supportive care and paracentesis 10/11: s/p paracentesis 2.4L of ascitic fluid removed. 10/12 resting slow improvement 10/13: Awake, more alert today. No n/v/abd pain. BRB from ornelas. No new labs 10/14: awake and alert, denies N/V, abd pain or distention, or GIB, has hematuria. Obtain labs 10/15: denies n/v/abd pain From GI standpoint we will continue to monitor the patient's progress Maria Luz Veloz 11/16/24 1056: Diagnosis, Assessment Plan Free Text A P: Chart reviewed, along with exam and interview with TIANA, I agree with the plan as written above at 1057 at 1057 RPT #:[id number] END OF REPORT [facility] 2024-10-14 18:23:00 [facility] ([facility] Urology Progress Note REPORT#:[id number] REPORT STATUS: Signed REPORT INITIALIZATION DATE:10/14/24 TIME: 1822 PATIENT: ABAD HARRINGTON UNIT #: [id number] ROOM/BED: [place] [address] : 55 AGE: 69 SEX: M ATTEND: Luisa Vincent MD ADM AUTHOR: Hiro Hoang MD REPT SERVICE DT/TIME: 10/14/241822 * ALL edits or amendments must be made on the electronic/computer document * Subjective Chief complaint: Bloody urine Comments: No complaints. Objective General VS/I O: Last Documented: Result Date Time Pulse Ox 91 10/14 1557 B/P 109/66 10/14 1557 B/P Mean 80.1 10/14 1557 Temp 98.6 10/14 1557 Pulse 89 10/14 1557 Resp 16 10/14 1557 O2 Delivery Nasal cannula 10/14 0945 O2 Flow Rate 1 10/14 0945 FiO2 21 10/14 0636 24 hour I O ending at 0700: 10/14 0700 10/13 1900 Intake Total Output Total 1100 Balance -1100 Output, Urine 1100 PATIENT WEIGHT: Weight (lb): 243 Weight (oz): 2.72 Weight (kg): 110.300 Free text obj notes: Physical Examination: Constitutional: Obesity Eyes: normal external eye, conjunctiva and sclera normal Ears, nose, mouth, throat: normocephalic, moist mucous membranes Respiratory: respirations unlabored on room air Gastrointestinal: soft, non-distended, non-tender Genitourinary: uncircumcised, severe phimosis, buried penis, bilateral descended testes, [address] [place] [address] in [address] patent and draining pink-tinged urine Musculoskeletal: no clubbing, his anasarca has overall improved Hematologic: no bruising Procedure: The catheter was manually irrigated with 180 cc of normal saline, the catheter freely irrigated and irrigated minimally blood-tinged urine Diagnosis, Assessment Plan Free Text A P: This is a 69-year-old male with decompensated cirrhosis, diabetes alleged history of prostate cancer, BPH, tobacco and alcohol abuse who is admitted for sepsis s/p Ornelas placement and dilation of his meatus. Patient is currently with an 18 [place] Ornelas. Patient reports he has had gross hematuria in the past and this often resolves with time. -Recommend continued hydration -Manually irrigate catheter as needed for nondraining Ornelas - Hold AC/AP at this time - Patient will need output patient evaluation for gross hematuria Hiro Hoang MD [facility] at 1827 RPT #:[id number] END OF REPORT [facility] 2024-10-14 14:07:00 [facility] ([facility] Pulmonology Progress Note REPORT#:[id number] REPORT STATUS: Signed REPORT INITIALIZATION DATE:10/14/24 TIME: 1406 PATIENT: ABAD HARRINGTON UNIT #: [id number] ROOM/BED: [place] [address] : 55 AGE: 69 SEX: M ATTEND: Luisa Vincent MD ADM AUTHOR: Arsh Tamez MD REPT SERVICE DT/TIME: 10/14/24 140 * ALL edits or amendments must be made on the electronic/computer document * Subjective Chief complaint: AMS. Comments: hematuria persists ROS: no n/v/cp but unreliable Objective General VS/I O: Last Documented: Result Date Time Pulse Ox 93 10/14 1058 B/P 109/70 10/14 1058 B/P Mean 82.8 10/14 1058 Temp 99.0 10/14 1058 Pulse 85 10/14 1058 Resp 12 10/14 1058 O2 Delivery Nasal cannula 10/14 0945 O2 Flow Rate 1 10/14 0945 FiO2 21 10/14 0636 24 hour I O ending at 0700: 10/13 1900 10/14 0700 Intake Total Output Total 1100 Balance -1100 Output, Urine 1100 PATIENT WEIGHT: Weight (lb): 243 Weight (oz): 2.72 Weight (kg): 110.300 Medications: Active Meds + DC'd Last 24 Hrs Thiamine HCl (THIAMINE HCL) 100 MG DAILY PO Furosemide (LASIX) 40 MG DAILY PO Spironolactone (ALDACTONE) 25 MG BID PO Lactulose (LACTULOSE) 20 GM BID 9A 5P PO Midazolam HCl (VERSED) 5 MG ASDIR IV (CKD) Albuterol/Ipratropium (IPRATR-ALBUTEROL 0.5-3 MG/3 ML) 3 ML RTQ6H NEB Guaifenesin (MUCINEX ER) 600 MG BID PO Sodium Chloride (SODIUM CHLORIDE) 10 ML BID IV Sodium Chloride (SODIUM CHLORIDE) 10 ML ASDIR PRN IV Albumin Human (ALBUMIN HUMAN) 400 ML ONCE ONE IV Folic Acid (FOLIC ACID) 1 MG DAILY PO Multivitamins Therapeutic (THERAGRAN) 1 TAB DAILY PO Calcium Gluconate (Calcium Gluconate 1 GM/NS 50 mL (B2)) 50 ML ASDIR PRN IV Calcium Gluconate (Calcium Gluconate 1 GM/NS 50 mL (B2)) 50 ML ASDIR PRN IV Lorazepam (ATIVAN) 1 MG Q4H PRN PRN IV Magnesium Sulfate (MAGNESIUM SULF 2 GM/SWI 50 ML) 50 ML ASDIR PRN IV Potassium Chloride (POTASSIUM CHLORIDE 20 MEQ/100 ML PREMIX) 100 ML ASDIR PRN IV Potassium Chloride (POTASSIUM CHLORIDE 20 MEQ/100 ML PREMIX) 100 ML ASDIR PRN IV Potassium Chloride (POTASSIUM CHLORIDE 20 MEQ/100 ML PREMIX) 100 ML ASDIR PRN IV Potassium Chloride (POTASSIUM CHLORIDE 20 MEQ/100 ML PREMIX) 100 ML ASDIR PRN IV Potassium Phosphate (POTASSIUM PHOSPHATE) 15 MM ASDIR PRN IV (CKD) Sodium Chloride (SODIUM CHLORIDE 0.9%) 100 ML Sodium Phosphate (SODIUM PHOSPHATE) 15 MMOL ASDIR PRN IV Sodium Chloride (SODIUM CHLORIDE 0.9%) 100 ML Sodium Phosphate (SODIUM PHOSPHATE) 20 MMOL ASDIR PRN IV Sodium Chloride (SODIUM CHLORIDE 0.9%) 100 ML Sodium Phosphate (SODIUM PHOSPHATE) 30 MMOL ASDIR PRN IV Sodium Chloride (SODIUM CHLORIDE 0.9%) 100 ML Sterile Water (WATER FOR INJECTION) 10 ML ASDIR PRN IV Dextrose/Water (DEXTROSE 10%) 125 ML ASDIR PRN IV (CKD) Dextrose/Water (DEXTROSE 10%) 250 ML ASDIR PRN IV (CKD) Dextrose/Water (DEXTROSE 10%) 125 ML ASDIR PRN IV (CKD) Dextrose/Water (DEXTROSE 10%) 250 ML ASDIR PRN IV (CKD) Glucagon (GLUCAGON) 1 MG ASDIR PRN IM Glucagon (GLUCAGON) 1 MG ASDIR PRN IM Physical Exam General appearance: chronically ill appearing Head/eyes: atraumatic, normocephalic, PERRL, EOMI, clear cornea, normal conjunctiva/sclera, normal fundi, normal eyelids/periorb. ENT: ENT: normal dentition, normal ear left, normal ear right, normal nose, normal pharynx, normal sinus Neck: full range of motion, non-tender, normal thyroid, supple/no meningismus, no bruit/NL carotids, no JVD, no lymphadenopathy, no masses or swelling Cardiovascular: regular rate rhythm Respiratory/chest: crackles, aerating well, symmetric expansion, no distress Abdomen: soft, non-tender, no distention, no guarding, no mass/organomegaly, no rebound Extremities: edema, moves all, normal capillary refill Musculoskeletal: full range of motion, normal inspection Neuro/KNOWLEDGE MANAGER: alert Skin: dry, intact Lymphatics: axilla normal, inguinal normal, neck normal, no lymphadenopathy Psychiatry: normal affect, normal judgment/insight, normal mood Diagnosis, Assessment Plan Free Text A P: 1. Sepsis resolved 2. Cirrhosis Decompensated GI following Ammonia elevated Lactulose s/p paracentesis 10/03 with removal of 5.6 L s/p repeat with 3L removed 3. Pleural effusion Possible hepatic hydrothorax? Follow symptoms 4. Hypoxemia Wean oxygen as tolerated 5. Altered mental status/ethanol abuse Hepatic encephalopathy lactulose improving ammonia CIWA protocol off Librium 6. Pulmonary infiltrates likely aspiration pneumonia abx cont nebs and Mucinex s/p bronchoscopy 10/06. Follow cultures. hematuria today PT/OT at 1408 RPT #:[id number] END OF REPORT [facility] 2024-10-14 10:17:00 [facility] ([facility] Acute Rehab Progress Note REPORT#:[id number] REPORT STATUS: Signed REPORT INITIALIZATION DATE:10/14/24 TIME: 1016 PATIENT: ABAD HARRINGTON UNIT #: [id number] ROOM/BED: [place] [address] : 55 AGE: 69 SEX: M ATTEND: Luisa Vincent MD ADM AUTHOR: Torsten Dyson MD REPT SERVICE DT/TIME: 10/14/24 1017 * ALL edits or amendments must be made on the electronic/computer document * Subjective Chief complaint: Weakness Patient reports: No: new complaints. Objective General VS/I O: Vital Signs Date Temp Pulse Resp B/P B/P Mean Pulse Ox FiO2 10/13-10/14 98.2-99.0 90-98 16-18 106-130/61-68 75.8-85.9 90-93 21 Last Documented: Result Date Time O2 Delivery Nasal cannula 10/14 0945 O2 Flow Rate 1 10/14 0945 Pulse Ox 90 10/14 0636 FiO2 21 10/14 0636 B/P 110/67 10/14 0631 B/P Mean 81.4 10/14 0631 Temp 98.2 10/14 0631 Pulse 90 10/14 0631 Resp 16 10/14 0631 24 hour I O ending at 0700: 10/14 0700 10/13 1900 Intake Total Output Total 1100 Balance -1100 Output, Urine 1100 PATIENT WEIGHT: Weight (lb): 243 Weight (oz): 2.72 Weight (kg): 110.300 Medications: Active Meds + DC'd Last 24 Hrs Thiamine HCl (THIAMINE HCL) 100 MG DAILY PO Furosemide (LASIX) 40 MG DAILY PO Spironolactone (ALDACTONE) 25 MG BID PO Lactulose (LACTULOSE) 20 GM BID 9A 5P PO Midazolam HCl (VERSED) 5 MG ASDIR IV (CKD) Albuterol/Ipratropium (IPRATR-ALBUTEROL 0.5-3 MG/3 ML) 3 ML RTQ6H NEB Guaifenesin (MUCINEX ER) 600 MG BID PO Sodium Chloride (SODIUM CHLORIDE) 10 ML BID IV Sodium Chloride (SODIUM CHLORIDE) 10 ML ASDIR PRN IV Albumin Human (ALBUMIN HUMAN) 400 ML ONCE ONE IV Folic Acid (FOLIC ACID) 1 MG DAILY PO Multivitamins Therapeutic (THERAGRAN) 1 TAB DAILY PO Calcium Gluconate (Calcium Gluconate 1 GM/NS 50 mL (B2)) 50 ML ASDIR PRN IV Calcium Gluconate (Calcium Gluconate 1 GM/NS 50 mL (B2)) 50 ML ASDIR PRN IV Lorazepam (ATIVAN) 1 MG Q4H PRN PRN IV Magnesium Sulfate (MAGNESIUM SULF 2 GM/SWI 50 ML) 50 ML ASDIR PRN IV Potassium Chloride (POTASSIUM CHLORIDE 20 MEQ/100 ML PREMIX) 100 ML ASDIR PRN IV Potassium Chloride (POTASSIUM CHLORIDE 20 MEQ/100 ML PREMIX) 100 ML ASDIR PRN IV Potassium Chloride (POTASSIUM CHLORIDE 20 MEQ/100 ML PREMIX) 100 ML ASDIR PRN IV Potassium Chloride (POTASSIUM CHLORIDE 20 MEQ/100 ML PREMIX) 100 ML ASDIR PRN IV Potassium Phosphate (POTASSIUM PHOSPHATE) 15 MM ASDIR PRN IV (CKD) Sodium Chloride (SODIUM CHLORIDE 0.9%) 100 ML Sodium Phosphate (SODIUM PHOSPHATE) 15 MMOL ASDIR PRN IV Sodium Chloride (SODIUM CHLORIDE 0.9%) 100 ML Sodium Phosphate (SODIUM PHOSPHATE) 20 MMOL ASDIR PRN IV Sodium Chloride (SODIUM CHLORIDE 0.9%) 100 ML Sodium Phosphate (SODIUM PHOSPHATE) 30 MMOL ASDIR PRN IV Sodium Chloride (SODIUM CHLORIDE 0.9%) 100 ML Sterile Water (WATER FOR INJECTION) 10 ML ASDIR PRN IV Dextrose/Water (DEXTROSE 10%) 125 ML ASDIR PRN IV (CKD) Dextrose/Water (DEXTROSE 10%) 250 ML ASDIR PRN IV (CKD) Dextrose/Water (DEXTROSE 10%) 125 ML ASDIR PRN IV (CKD) Dextrose/Water (DEXTROSE 10%) 250 ML ASDIR PRN IV (CKD) Glucagon (GLUCAGON) 1 MG ASDIR PRN IM Glucagon (GLUCAGON) 1 MG ASDIR PRN IM Physical Exam General appearance: alert, awake Cardiovascular: normal heart sounds Respiratory: clear to auscultation Abdomen: non-tender, normal bowel sounds, soft, no distention Results Results: no new labs Diagnosis, Assessment Plan Free Text A P: Hepatic encephalopathy -patient continues to decline therapy and states he wants to be discharged home. He was standby assist with bed mobility standby assist with transfers and min assist with gait 70 feet with a rolling walker. Discussed the need for further therapy to help him reach a modified independent level but patient feels he is safe enough to her discharge home at this point and does not want to participate with inpatient rehab. at 1019 RPT #:[id number] END OF REPORT [facility] 2024-10-14 08:11:00 [facility] ([facility] Hospitalist Progress Note REPORT#:[id number] REPORT STATUS: Signed REPORT INITIALIZATION DATE:10/14/24 TIME: 810 PATIENT: ABAD HARRINGTON UNIT #: [id number] ROOM/BED: [place] [id number] : 55 AGE: 69 SEX: M ATTEND: Luisa Vincent MD ADM AUTHOR: Thea Clark MD R1 REPT SERVICE DT/TIME: 10/14/24 0811 * ALL edits or amendments must be made on the electronic/computer document * Subjective Chief complaint: continues to improve good uop no distress 14 point ROS negative unless stated Review of Systems Free Text ROS Notes Free Text ROS Notes: AMS Objective General VS/I O: Vital Signs: Date Time Temp Pulse Resp B/P B/P Pulse O2 O2 Flow FiO2 Mean Ox Delivery Rate 10/14 0636 90 Room air 21 10/14 0631 36.8 90 16 110/67 81.4 91 10/14 0313 37.2 98 17 108/68 81.7 93 10/13 2328 91 Nasal 1 cannula 10/135 37.1 95 18 106/61 75.8 90 10/13 2000 Nasal 1 cannula 10/13 1954 37.1 97 18 115/68 83.8 90 10/13 1612 36.8 92 16 130/64 85.9 91 10/13 1122 92 Nasal 1 cannula 24 hour I O ending at 0700: 10/14 0700 10/13 1900 Intake Total Output Total 1100 Balance -1100 Output, Urine 1100 PATIENT WEIGHT: Weight (lb): 243 Weight (oz): 2.72 Weight (kg): 110.300 Medications: Active Meds + DC'd Last 24 Hrs Thiamine HCl (THIAMINE HCL) 100 MG DAILY PO Furosemide (LASIX) 40 MG DAILY PO Spironolactone (ALDACTONE) 25 MG BID PO Lactulose (LACTULOSE) 20 GM BID 9A 5P PO Midazolam HCl (VERSED) 5 MG ASDIR IV (CKD) Albuterol/Ipratropium (IPRATR-ALBUTEROL 0.5-3 MG/3 ML) 3 ML RTQ6H NEB Guaifenesin (MUCINEX ER) 600 MG BID PO Sodium Chloride (SODIUM CHLORIDE) 10 ML BID IV Sodium Chloride (SODIUM CHLORIDE) 10 ML ASDIR PRN IV Albumin Human (ALBUMIN HUMAN) 400 ML ONCE ONE IV Folic Acid (FOLIC ACID) 1 MG DAILY PO Multivitamins Therapeutic (THERAGRAN) 1 TAB DAILY PO Calcium Gluconate (Calcium Gluconate 1 GM/NS 50 mL (B2)) 50 ML ASDIR PRN IV Calcium Gluconate (Calcium Gluconate 1 GM/NS 50 mL (B2)) 50 ML ASDIR PRN IV Lorazepam (ATIVAN) 1 MG Q4H PRN PRN IV Magnesium Sulfate (MAGNESIUM SULF 2 GM/SWI 50 ML) 50 ML ASDIR PRN IV Potassium Chloride (POTASSIUM CHLORIDE 20 MEQ/100 ML PREMIX) 100 ML ASDIR PRN IV Potassium Chloride (POTASSIUM CHLORIDE 20 MEQ/100 ML PREMIX) 100 ML ASDIR PRN IV Potassium Chloride (POTASSIUM CHLORIDE 20 MEQ/100 ML PREMIX) 100 ML ASDIR PRN IV Potassium Chloride (POTASSIUM CHLORIDE 20 MEQ/100 ML PREMIX) 100 ML ASDIR PRN IV Potassium Phosphate (POTASSIUM PHOSPHATE) 15 MM ASDIR PRN IV (CKD) Sodium Chloride (SODIUM CHLORIDE 0.9%) 100 ML Sodium Phosphate (SODIUM PHOSPHATE) 15 MMOL ASDIR PRN IV Sodium Chloride (SODIUM CHLORIDE 0.9%) 100 ML Sodium Phosphate (SODIUM PHOSPHATE) 20 MMOL ASDIR PRN IV Sodium Chloride (SODIUM CHLORIDE 0.9%) 100 ML Sodium Phosphate (SODIUM PHOSPHATE) 30 MMOL ASDIR PRN IV Sodium Chloride (SODIUM CHLORIDE 0.9%) 100 ML Sterile Water (WATER FOR INJECTION) 10 ML ASDIR PRN IV Dextrose/Water (DEXTROSE 10%) 125 ML ASDIR PRN IV (CKD) Dextrose/Water (DEXTROSE 10%) 250 ML ASDIR PRN IV (CKD) Dextrose/Water (DEXTROSE 10%) 125 ML ASDIR PRN IV (CKD) Dextrose/Water (DEXTROSE 10%) 250 ML ASDIR PRN IV (CKD) Glucagon (GLUCAGON) 1 MG ASDIR PRN IM Glucagon (GLUCAGON) 1 MG ASDIR PRN IM Physical Exam General appearance: alert, awake, oriented Head/Eyes: PERRL ENT: moist mucosal membranes Cardiovascular: normal capillary refill Respiratory: aerating well Abdomen: tenderness Free Text Obj Notes Free Text Obj Notes: PHYSICAL EXAMINATION General appearance: Arousable AMS 5 L nasal cannula Head/Eyes: atraumatic, normocephalic, PERRL, EOMI ENT: normal ear left, normal ear right, normal nose, normal pharynx Neck: full range of motion, supple/no meningismus Cardiovascular: normal S1/S2, regular rate rhythm Respiratory/chest: Hypoxia decreased breath sounds bilaterally Abdomen: soft, non-tender, normal bowel sounds Genitourinary: deferred Extremities: Bilateral leg edema Musculoskeletal: full range of motion, normal inspection Neuro/KNOWLEDGE MANAGER alert, oriented X 2, CNII-XII intact Skin: Lower extremity chronic changes Psychiatry: AMS Diagnosis, Assessment Plan Free Text DxA P Notes Free text DxA P notes: Acute hypoxic respiratory failure - Nasal cannula oxygen 3L - Pulmonary consult Decompensated cirrhosis of liver with anasarca and acute liver failure - hepatic encephalopathy - IV diuresis- Furosemide/ Paracentesus/ Lactulose - Hep pannel- HCV ab positive, will need outpatient work for HCV - S/P paracentesis 10/03 with removal of 5.6 L - 10/11: s/p paracentesis 2.4L of ascitic fluid removed. - Monitor electrolytes and labs - GI consult Pneumonia - S/p Ceftriaxone - Follow cultures- Negative - neb tx and Mucinex - S/P bronchoscopy 10/06. Altered mental status/ethanol abuse Hepatic encephalopathy - lactulose- 2 BM - improving ammonia - CIWA protocol - off Librium Hypocalcemia Chronic - TSH and PTH ordered - Replace - Recheck in a.m. - Nephrology consultation Urinary obstruction - ornelas placed by Urologist - Hematuria present Diabetes mellitus type 2 Sliding scale insulin- D'cd 12. Monitor closely Discussed with charge nurse DVT prophylaxis with Lovenox 10.14- Pt had hematuria- Ornelas drained 1100ml hematuria. Per urology In the event the patient requires further bladder irrigation or continuous he likely will require cystoscopic placement of a three-way Ornelas catheter at 0917 at 1356 RPT #:[id number] END OF REPORT [facility] 2024-10-14 07:49:00 [facility] ([facility] Gastroenterology Progress Note REPORT#:[id number] REPORT STATUS: Signed REPORT INITIALIZATION DATE:10/14/24 TIME: 748 PATIENT: ABAD HARRINGTON UNIT #: [id number] ROOM/BED: [place] [address] : 55 AGE: 69 SEX: M ATTEND: Luisa Vincent MD ADM AUTHOR: Alber García MD REPT SERVICE DT/TIME: 10/14/24 0749 * ALL edits or amendments must be made on the electronic/computer document * Subjective Chief complaint: denies n/v/abd pain Review of Systems All systems rev neg: except as marked Objective General VS/I O: Last Documented: Result Date Time Pulse Ox 90 10/14 636 FiO2 21 10/14 636 O2 Delivery Room air 10/14 636 B/P 110/67 10/14 631 B/P Mean 81.4 10/14 631 Temp 36.8 10/14 631 Pulse 90 10/14 631 Resp 16 10/14 631 O2 Flow Rate 1 10/13 2328 24 hour I O ending at 0700: 10/14 0700 10/13 1900 Intake Total Output Total 1100 Balance -1100 Output, Urine 1100 PATIENT WEIGHT: Weight (lb): 243 Weight (oz): 2.72 Weight (kg): 110.300 Physical Exam General appearance: awake, no acute distress HEENT: anicteric, EOMI Neck: full range of motion, non-tender, supple/no meningismus Cardiovascular: normal S1/S2 Respiratory: no distress Abdomen: ascites, distended, normal bowel sounds Extremities: moves all Skin: dry, intact Diagnosis, Assessment Plan Free Text A P: 1. Cirrhosis of liver w/ascites will order hep panel, and INR - paracentesis - lactulose, lasix 2. Hepatic Encephalopathy II - ammonia 43 - lactulose 3. Pneumonia - pulmonary consulted 10/03 - low MELDNA score, HCV Ab positive, will need outpatient work for HCV 10/04 - increase lactulose to q2 hr till he wakes up Grade I-II hepatic encephalopathy 10/05 - still confused, stop librium, will use Ativan. decrease lactulose to q8hr sinc ammonia <40 its possible AMS from chronic abuse of ETOH - withrawl vs wernicke's 10/06 more awake today, no gi bleeding, resting 10/07 continue with lactulose, rectal tube in place on lasix 10/08-HE I to II, cont lactulose 10/09-Having 2 BMs per day. Continues confused. -Await paracentesis 10/10 continue with supportive care and paracentesis 10/11: s/p paracentesis 2.4L of ascitic fluid removed. 10/12 resting slow improvement 10/13: Awake, more alert today. No n/v/abd pain. BRB from ornelas. No new labs 10/14: awake and alert, denies N/V, abd pain or distention, or GIB, has hematuria. Obtain labs From GI standpoint we will continue to monitor the patient's progress at [facility] #:[id number] END OF REPORT [facility] 2024-10-13 17:13:00 [facility] ([facility] Gastroenterology Progress Note REPORT#:[id number] REPORT STATUS: Signed REPORT INITIALIZATION DATE:10/13/24 TIME: 1712 PATIENT: ABAD HARRINGTON UNIT #: [id number] ROOM/BED: [place] [address] : 55 AGE: 69 SEX: M ATTEND: Luisa Vincent MD ADM AUTHOR: Suzy Ramirez SEARCH DEVELOPER REPT SERVICE DT/TIME: 10/13/241712 * ALL edits or amendments must be made on the electronic/computer document * Suzy Ramirez 10/13/241712: Subjective Chief complaint: denies n/v/abd pain Review of Systems Constitutional: Denies: chills, fever. Skin: Denies: laceration, rash. Allergy/Immun: Denies: allergic reaction, anaphylaxis. Eyes: Denies: redness, discharge. ENT: Denies: nasal congestion, sore throat. GI: Denies: abdominal pain, nausea, vomiting. Heme: Denies: adenopathy, petechiae. Endocrine: Denies: weight gain, weight loss. Psych: Denies: agitation, anxiety. Objective General VS/I O: Last Documented: Result Date Time Pulse Ox 91 10/13 1612 B/P 130/64 10/13 1612 B/P Mean 85.9 10/13 1612 Temp 36.8 10/13 1612 Pulse 92 10/13 1612 Resp 16 10/13 1612 O2 Delivery Nasal cannula 10/13 1122 O2 Flow Rate 1 10/13 112 FiO2 32 10/12 0700 24 hour I O ending at 0700: 10/13 0700 10/12 1900 Intake Total 800 Output Total 1600 1000 Balance -1600 -200 Intake, Oral 800 Output, Urine 1600 1000 PATIENT WEIGHT: Weight (lb): 243 Weight (oz): 2.72 Weight (kg): 110.300 Medications: Active Meds + DC'd Last 24 Hrs Thiamine HCl (THIAMINE HCL) 100 MG DAILY PO Furosemide (LASIX) 40 MG DAILY PO Spironolactone (ALDACTONE) 25 MG BID PO Lactulose (LACTULOSE) 20 GM BID 9A 5P PO Midazolam HCl (VERSED) 5 MG ASDIR IV (CKD) Thiamine HCl (THIAMINE HCL) 100 MG DAILY FEED-TUBE (DC) Albuterol/Ipratropium (IPRATR-ALBUTEROL 0.5-3 MG/3 ML) 3 ML RTQ6H NEB Guaifenesin (MUCINEX ER) 600 MG BID PO Sodium Chloride (SODIUM CHLORIDE) 10 ML BID IV Sodium Chloride (SODIUM CHLORIDE) 10 ML ASDIR PRN IV Albumin Human (ALBUMIN HUMAN) 400 ML ONCE ONE IV Folic Acid (FOLIC ACID) 1 MG DAILY PO Multivitamins Therapeutic (THERAGRAN) 1 TAB DAILY PO Calcium Gluconate (Calcium Gluconate 1 GM/NS 50 mL (B2)) 50 ML ASDIR PRN IV Calcium Gluconate (Calcium Gluconate 1 GM/NS 50 mL (B2)) 50 ML ASDIR PRN IV Lorazepam (ATIVAN) 1 MG Q4H PRN PRN IV Magnesium Sulfate (MAGNESIUM SULF 2 GM/SWI 50 ML) 50 ML ASDIR PRN IV Potassium Chloride (POTASSIUM CHLORIDE 20 MEQ/100 ML PREMIX) 100 ML ASDIR PRN IV Potassium Chloride (POTASSIUM CHLORIDE 20 MEQ/100 ML PREMIX) 100 ML ASDIR PRN IV Potassium Chloride (POTASSIUM CHLORIDE 20 MEQ/100 ML PREMIX) 100 ML ASDIR PRN IV Potassium Chloride (POTASSIUM CHLORIDE 20 MEQ/100 ML PREMIX) 100 ML ASDIR PRN IV Potassium Phosphate (POTASSIUM PHOSPHATE) 15 MM ASDIR PRN IV (CKD) Sodium Chloride (SODIUM CHLORIDE 0.9%) 100 ML Sodium Phosphate (SODIUM PHOSPHATE) 15 MMOL ASDIR PRN IV Sodium Chloride (SODIUM CHLORIDE 0.9%) 100 ML Sodium Phosphate (SODIUM PHOSPHATE) 20 MMOL ASDIR PRN IV Sodium Chloride (SODIUM CHLORIDE 0.9%) 100 ML Sodium Phosphate (SODIUM PHOSPHATE) 30 MMOL ASDIR PRN IV Sodium Chloride (SODIUM CHLORIDE 0.9%) 100 ML Sterile Water (WATER FOR INJECTION) 10 ML ASDIR PRN IV Dextrose/Water (DEXTROSE 10%) 125 ML ASDIR PRN IV (CKD) Dextrose/Water (DEXTROSE 10%) 250 ML ASDIR PRN IV (CKD) Dextrose/Water (DEXTROSE 10%) 125 ML ASDIR PRN IV (CKD) Dextrose/Water (DEXTROSE 10%) 250 ML ASDIR PRN IV (CKD) Glucagon (GLUCAGON) 1 MG ASDIR PRN IM Glucagon (GLUCAGON) 1 MG ASDIR PRN IM Physical Exam General appearance: chronically ill appearing, awake HEENT: anicteric, atraumatic, normocephalic Neck: full range of motion, non-tender, supple/no meningismus Cardiovascular: normal S1/S2, regular rate rhythm Respiratory: decreased breath sounds, symmetric expansion Abdomen: ascites, distended, normal bowel sounds Extremities: moves all Skin: dry, intact Diagnosis, Assessment Plan Free Text A P: 1. Cirrhosis of liver w/ascites will order hep panel, and INR - paracentesis - lactulose, lasix 2. Hepatic Encephalopathy II - ammonia 43 - lactulose 3. Pneumonia - pulmonary consulted 10/03 - low MELDNA score, HCV Ab positive, will need outpatient work for HCV 10/04 - increase lactulose to q2 hr till he wakes up Grade I-II hepatic encephalopathy 10/05 - still confused, stop librium, will use Ativan. decrease lactulose to q8hr sinc ammonia <40 its possible AMS from chronic abuse of ETOH - withrawl vs wernicke's 10/06 more awake today, no gi bleeding, resting 10/07 continue with lactulose, rectal tube in place on lasix 10/08-HE I to II, cont lactulose 10/09-Having 2 BMs per day. Continues confused. -Await paracentesis 10/10 continue with supportive care and paracentesis 10/11: s/p paracentesis 2.4L of ascitic fluid removed. 10/12 resting slow improvement 10/13: Awake, more alert today. No n/v/abd pain. BRB from ornelas. No new labs From GI standpoint we will continue to monitor the patient's progress Maria Luz Veloz 11/16/24 1056: Diagnosis, Assessment Plan Free Text A P: Chart reviewed, along with exam and interview with TIANA, I agree with the plan as written above at 1716 at 1057 RPT #:[id number] END OF REPORT [facility] 2024-10-13 14:05:00 [facility] Pulmonology Progress Note REPORT#:[id number] REPORT STATUS: Signed REPORT INITIALIZATION DATE:10/13/24 TIME: 1404 PATIENT: ABAD HARRINGTON UNIT #: [id number] ROOM/BED: [place] [address] : 55 AGE: 69 SEX: M ATTEND: Luisa Vincent MD ADM AUTHOR: Arsh Tamez MD REPT SERVICE DT/TIME: 10/13/24 1405 * ALL edits or amendments must be made on the electronic/computer document * Subjective Chief complaint: AMS. Comments: moderate hematuria apapears confuseD? off oxygen ROS: no n/v/cp/dimas Objective General VS/I O: Last Documented: Result Date Time Pulse Ox 92 10/13 112 O2 Delivery Nasal cannula 10/13 112 O2 Flow Rate 1 10/13 1122 B/P 106/53 10/13 0711 B/P Mean 70.8 10/13 0711 Temp 97.9 10/13 0711 Pulse 89 10/13 0711 Resp 16 10/13 0711 FiO2 32 10/12 0700 24 hour I O ending at 0700: 10/12 1900 10/13 0700 Intake Total 800 Output Total 1000 1600 Balance -200 -1600 Intake, Oral 800 Output, Urine 1000 1600 PATIENT WEIGHT: Weight (lb): 243 Weight (oz): 2.72 Weight (kg): 110.300 Medications: Active Meds + DC'd Last 24 Hrs Thiamine HCl (THIAMINE HCL) 100 MG DAILY PO Furosemide (LASIX) 40 MG DAILY PO Spironolactone (ALDACTONE) 25 MG BID PO Lactulose (LACTULOSE) 20 GM BID 9A 5P PO Midazolam HCl (VERSED) 5 MG ASDIR IV (CKD) Thiamine HCl (THIAMINE HCL) 100 MG DAILY FEED-TUBE (DC) Albuterol/Ipratropium (IPRATR-ALBUTEROL 0.5-3 MG/3 ML) 3 ML RTQ6H NEB Guaifenesin (MUCINEX ER) 600 MG BID PO Sodium Chloride (SODIUM CHLORIDE) 10 ML BID IV Sodium Chloride (SODIUM CHLORIDE) 10 ML ASDIR PRN IV Albumin Human (ALBUMIN HUMAN) 400 ML ONCE ONE IV Folic Acid (FOLIC ACID) 1 MG DAILY PO Multivitamins Therapeutic (THERAGRAN) 1 TAB DAILY PO Calcium Gluconate (Calcium Gluconate 1 GM/NS 50 mL (B2)) 50 ML ASDIR PRN IV Calcium Gluconate (Calcium Gluconate 1 GM/NS 50 mL (B2)) 50 ML ASDIR PRN IV Lorazepam (ATIVAN) 1 MG Q4H PRN PRN IV Magnesium Sulfate (MAGNESIUM SULF 2 GM/SWI 50 ML) 50 ML ASDIR PRN IV Potassium Chloride (POTASSIUM CHLORIDE 20 MEQ/100 ML PREMIX) 100 ML ASDIR PRN IV Potassium Chloride (POTASSIUM CHLORIDE 20 MEQ/100 ML PREMIX) 100 ML ASDIR PRN IV Potassium Chloride (POTASSIUM CHLORIDE 20 MEQ/100 ML PREMIX) 100 ML ASDIR PRN IV Potassium Chloride (POTASSIUM CHLORIDE 20 MEQ/100 ML PREMIX) 100 ML ASDIR PRN IV Potassium Phosphate (POTASSIUM PHOSPHATE) 15 MM ASDIR PRN IV (CKD) Sodium Chloride (SODIUM CHLORIDE 0.9%) 100 ML Sodium Phosphate (SODIUM PHOSPHATE) 15 MMOL ASDIR PRN IV Sodium Chloride (SODIUM CHLORIDE 0.9%) 100 ML Sodium Phosphate (SODIUM PHOSPHATE) 20 MMOL ASDIR PRN IV Sodium Chloride (SODIUM CHLORIDE 0.9%) 100 ML Sodium Phosphate (SODIUM PHOSPHATE) 30 MMOL ASDIR PRN IV Sodium Chloride (SODIUM CHLORIDE 0.9%) 100 ML Sterile Water (WATER FOR INJECTION) 10 ML ASDIR PRN IV Dextrose/Water (DEXTROSE 10%) 125 ML ASDIR PRN IV (CKD) Dextrose/Water (DEXTROSE 10%) 250 ML ASDIR PRN IV (CKD) Dextrose/Water (DEXTROSE 10%) 125 ML ASDIR PRN IV (CKD) Dextrose/Water (DEXTROSE 10%) 250 ML ASDIR PRN IV (CKD) Glucagon (GLUCAGON) 1 MG ASDIR PRN IM Glucagon (GLUCAGON) 1 MG ASDIR PRN IM Physical Exam General appearance: chronically ill appearing Head/eyes: atraumatic, normocephalic, PERRL, EOMI, clear cornea, normal conjunctiva/sclera, normal fundi, normal eyelids/periorb. ENT: ENT: normal dentition, normal ear left, normal ear right, normal nose, normal pharynx, normal sinus Neck: full range of motion, non-tender, normal thyroid, supple/no meningismus, no bruit/NL carotids, no JVD, no lymphadenopathy, no masses or swelling Cardiovascular: regular rate rhythm Respiratory/chest: crackles, aerating well, symmetric expansion, no distress Abdomen: soft, non-tender, no distention, no guarding, no mass/organomegaly, no rebound Extremities: edema, moves all, normal capillary refill Musculoskeletal: full range of motion, normal inspection Neuro/KNOWLEDGE MANAGER: alert Skin: dry, intact Lymphatics: axilla normal, inguinal normal, neck normal, no lymphadenopathy Psychiatry: normal affect, normal judgment/insight, normal mood Diagnosis, Assessment Plan Free Text A P: 1. Sepsis resolved 2. Cirrhosis Decompensated GI following Ammonia elevated Lactulose s/p paracentesis 10/03 with removal of 5.6 L s/p repeat with 3L removed 3. Pleural effusion Possible hepatic hydrothorax? Follow symptoms 4. Hypoxemia Wean oxygen as tolerated 5. Altered mental status/ethanol abuse Hepatic encephalopathy lactulose improving ammonia CIWA protocol off Librium 6. Pulmonary infiltrates likely aspiration pneumonia abx cont nebs and Mucinex s/p bronchoscopy 10/06. Follow cultures. hematuria today PT/OT pending at 1408 RPT #:[id number] END OF REPORT [facility] 2024-10-13 11:59:00 [id number] [facility] [address] [place] [address] PATIENT NAME: ABAD HARRINGTON ADMIT DATE: 10/01/24 ACCOUNT NO: [id number] DISCHARGE DATE: ROOM NO: E.[id number] REPORT TYPE: CONSULTATION REPORT DATE OF : 55 AGE: 69 SEX: M ADMITTING PHYSICIAN:Luisa Vincent MD ATTENDING PHYSICIAN:Luisa Vincent MD CONSULTATION DATE: 10/13/2024 ROOM NUMBER: [id number]. HISTORY OF PRESENT ILLNESS: This is a 69-year-old gentleman, who was originally admitted to [facility] on 10/01/2024 after transfer from [facility] with altered mental status. He was found to have sepsis, was initiated on antibiotics. He also was found to have elevated ammonia level with ascites and was seen by GI. He had a paracentesis and was placed on medication for the elevated ammonia. He developed acute hypoxic respiratory failure, required oxygen and Pulmonary is following. He was also found to have pneumonia and was placed on antibiotics for this as well and underwent a bronchoscopy. Again, his altered mental status was felt related to alcohol abuse and hepatic encephalopathy and is being treated for this. He had low calcium. He was also found to have urinary obstruction with hematuria and had a Ornelas placed and was seen by Urology. He was initially in the intensive care unit and has been moved to the medical floor. He had 2600 mL of urine from his catheter when the Ornelas was placed. He overall, though, is now felt to be improving medically, but there is concern that he is limited in his mobility and ADL skills and unable to return home and therefore a rehab consultation was requested. PAST MEDICAL HISTORY: Includes a history of alcohol abuse with liver cirrhosis, benign prostatic hypertrophy, prostate cancer, type 2 diabetes mellitus. FAMILY HISTORY: Positive for high blood pressure and alcohol use. SOCIAL HISTORY: He denies that he drinks, but he does admit to smoking a pack of cigarettes a day for 54 years and apparently had a past history of drinking. He lives with his son and his girlfriend. It is a first floor apartment with no steps. He previously got around with the use of a rolling walker at a modified independent level. ALLERGIES: HE HAS NO KNOWN ALLERGIES. CURRENT MEDICATIONS: Include Aldactone 25 mg b.i.d., DuoNeb 3 mL every 6 hours, folic acid 1 mg daily, lactulose 20 grams b.i.d., Lasix 40 mg daily, Mucinex 600 mg b.i.d., multivitamin 1 tablet daily, thiamine 100 mg daily, Versed 5 mg as directed, Albuminar-25% 400 mL as directed, Ativan 1 mg every 4 hours as needed, D10 IV piggyback as needed, glucagon 1 mg as needed, calcium gluconate 50 mL as needed, KCl 20 mEq as needed, mag sulfate 2 grams as directed, sodium phosphate 15 millimoles as directed and 20 millimoles as directed and 30 millimoles as directed. PATIENT NAME: ABAD HARRINGTON REVIEW OF SYSTEMS: CONSTITUTIONAL: He denies fever, chills, malaise. HEENT: Denies headache, blurry vision, altered mental status. CARDIAC: He denies chest pain or palpitation. RESPIRATORY: He denies shortness of breath or wheezing, although has oxygen in place. GENITOURINARY: No hesitancy, urgency or burning with urination. MUSCULOSKELETAL: He denies joint pain or swelling. DERMATOLOGIC: He denies rash or skin breakdown. ENDOCRINE: No heat or cold intolerance. No polydipsia or polyphagia. HEMATOLOGIC: No easy bruising or bleeding. No lymphadenopathy. NEUROLOGIC: No history of stroke, seizure disorder or neuropathy. PSYCHIATRIC: He denies history of anxiety, depression or psychoses. ALLERGY: No runny nose, congestion or rash. The rest of 14-point review of systems is reported negative by the patient and the patient in fact states he is doing well. PHYSICAL EXAMINATION: GENERAL: He is awake, passively cooperative gentleman, in no apparent distress. VITAL SIGNS: Temperature 97.9, pulse 89, respirations 16, blood pressure 106/53. HEENT: Pupils are equal, round, reactive to light and accommodation. Extraocular muscles are intact. Sclerae nonicteric, not injected, but are muddy. Nose without discharge. Throat without erythema or exudate. NECK: Supple without JVD, lymph nodes, bruits or masses. Trachea is midline. LUNGS: Show a few bibasilar crackles with decreased breath sounds at the bases. HEART: Regular rate and rhythm without apparent murmur, rub or gallop. ABDOMEN: Positive bowel sounds, soft, nontender without hepatosplenomegaly. EXTREMITIES: There is no clubbing, cyanosis or edema. Pulses are 2+ in the upper extremities. Dorsalis pedis pulses were not palpable in the lower extremities. GENITAL AND RECTAL: Deferred. NEUROLOGIC: Cranial nerves II through XII are grossly intact. Communication, hearing and swallowing are intact. The patient is alert. He is grossly oriented x3, he knew the year, but not the date. Range of motion is within functional limits throughout. Muscle strength is 4/5 throughout the upper and lower extremities. Reflexes are 2 at the biceps; 1 at the triceps, brachioradialis, 2 at the knees, 1 at the ankles with downgoing plantar reflexes. Aviva sign is negative. Sensory exam for light touch is grossly intact. Functionally, he was seen by therapy and was reported min assist with upper extremity dressing, dependent with lower extremity dressing; supervision with hygiene, grooming and eating, dependent with toileting and mod assist with bathing. In mobility skills, he was reported to be standby assist with bed mobility except scooting was dependent, min assist with the transfer, min assist with sit to stand and min assist with gait 40 feet with a rolling walker. ASSESSMENT AND PLAN: This is a 69-year-old gentleman with a history of hepatic encephalopathy. At this point in time, he could certainly benefit from a stay on rehab to upgrade his mobility and ADL skills; however, the patient refused this and states he wants to be discharged as soon as possible. I have discussed with him the need to progress his functional and ADL independence to allow for a safe discharge and we will see how he does with therapy today and rediscuss rehab options with him tomorrow. We will follow along with you and do PATIENT NAME: ABAD HARRINGTON appreciate the opportunity to see this patient with you. Dictated By: Torsten Dyson MD Date Dictated: 10/13/2024 11:59:05 Date Transcribed: 10/13/2024 15:37:48 RJ/ELLY/ROSALIND Receipt ID: [id number] Authenticated by Torsten Dyson On 10/14/2024 10:52:56 AM at 1052 PATIENT NAME: ABAD HARRINGTON [facility] 2024-10-13 11:03:00 [facility] Urology Progress Note REPORT#:[id number] REPORT STATUS: Signed REPORT INITIALIZATION DATE:10/13/24 TIME: 110 PATIENT: BAAD HARRINGTON UNIT #: [id number] ROOM/BED: [place] [id number] : 55 AGE: 69 SEX: M ATTEND: Luisa Vincent MD ADM AUTHOR: Ramon Wellington MD REPT SERVICE DT/TIME: 10/13/24 1103 * ALL edits or amendments must be made on the electronic/computer document * Subjective Chief complaint: Bloody urine HPI: Abad Harrington is a 69-year-old male with known history of cirrhosis, diabetes type 2, hypertension, BPH, history of prostate cancer who presented as a transfer from the [facility] for sepsis and bacteremia. He is A and O x 0 currently on the medical unit. He has cellulitis of his lower extremities, hepatic encephalopathy, decompensated liver cirrhosis with anasarca. Patient has a buried penis and required icu bedside urethral dilation with placement of a Ornelas catheter by Dr. Hoang previously. Patient recently began having gross hematuria. There is no bladder distention. There is no clots in the tubing. We have asked to hold all anticoagulation medication and to begin manual irrigation of the Ornelas catheter. Patient reports: no urinary pain, bloody urine Nursing reports: bloody urine Review of Systems : Reports: hematuria. All systems rev neg: except as marked Objective General VS/I O: Last Documented: Result Date Time O2 Delivery Nasal cannula 10/13 749 O2 Flow Rate 1 10/13 749 Pulse Ox 95 10/13 711 B/P 106/53 10/13 711 B/P Mean 70.8 10/13 711 Temp 36.6 10/13 711 Pulse 89 10/13 711 Resp 16 10/13 07 FiO2 32 10/12 0700 24 hour I O ending at 0700: 10/13 0700 10/12 1900 Intake Total 800 Output Total 1600 1000 Balance -1600 -200 Intake, Oral 800 Output, Urine 1600 1000 PATIENT WEIGHT: Weight (lb): 243 Weight (oz): 2.72 Weight (kg): 110.300 Medications: Active Meds + DC'd Last 24 Hrs Thiamine HCl (THIAMINE HCL) 100 MG DAILY PO Furosemide (LASIX) 40 MG DAILY PO Spironolactone (ALDACTONE) 25 MG BID PO Lactulose (LACTULOSE) 20 GM BID 9A 5P PO Midazolam HCl (VERSED) 5 MG ASDIR IV (CKD) Thiamine HCl (THIAMINE HCL) 100 MG DAILY FEED-TUBE (DC) Albuterol/Ipratropium (IPRATR-ALBUTEROL 0.5-3 MG/3 ML) 3 ML RTQ6H NEB Guaifenesin (MUCINEX ER) 600 MG BID PO Sodium Chloride (SODIUM CHLORIDE) 10 ML BID IV Sodium Chloride (SODIUM CHLORIDE) 10 ML ASDIR PRN IV Albumin Human (ALBUMIN HUMAN) 400 ML ONCE ONE IV Folic Acid (FOLIC ACID) 1 MG DAILY PO Multivitamins Therapeutic (THERAGRAN) 1 TAB DAILY PO Calcium Gluconate (Calcium Gluconate 1 GM/NS 50 mL (B2)) 50 ML ASDIR PRN IV Calcium Gluconate (Calcium Gluconate 1 GM/NS 50 mL (B2)) 50 ML ASDIR PRN IV Lorazepam (ATIVAN) 1 MG Q4H PRN PRN IV Magnesium Sulfate (MAGNESIUM SULF 2 GM/SWI 50 ML) 50 ML ASDIR PRN IV Potassium Chloride (POTASSIUM CHLORIDE 20 MEQ/100 ML PREMIX) 100 ML ASDIR PRN IV Potassium Chloride (POTASSIUM CHLORIDE 20 MEQ/100 ML PREMIX) 100 ML ASDIR PRN IV Potassium Chloride (POTASSIUM CHLORIDE 20 MEQ/100 ML PREMIX) 100 ML ASDIR PRN IV Potassium Chloride (POTASSIUM CHLORIDE 20 MEQ/100 ML PREMIX) 100 ML ASDIR PRN IV Potassium Phosphate (POTASSIUM PHOSPHATE) 15 MM ASDIR PRN IV (CKD) Sodium Chloride (SODIUM CHLORIDE 0.9%) 100 ML Sodium Phosphate (SODIUM PHOSPHATE) 15 MMOL ASDIR PRN IV Sodium Chloride (SODIUM CHLORIDE 0.9%) 100 ML Sodium Phosphate (SODIUM PHOSPHATE) 20 MMOL ASDIR PRN IV Sodium Chloride (SODIUM CHLORIDE 0.9%) 100 ML Sodium Phosphate (SODIUM PHOSPHATE) 30 MMOL ASDIR PRN IV Sodium Chloride (SODIUM CHLORIDE 0.9%) 100 ML Sterile Water (WATER FOR INJECTION) 10 ML ASDIR PRN IV Dextrose/Water (DEXTROSE 10%) 125 ML ASDIR PRN IV (CKD) Dextrose/Water (DEXTROSE 10%) 250 ML ASDIR PRN IV (CKD) Dextrose/Water (DEXTROSE 10%) 125 ML ASDIR PRN IV (CKD) Dextrose/Water (DEXTROSE 10%) 250 ML ASDIR PRN IV (CKD) Glucagon (GLUCAGON) 1 MG ASDIR PRN IM Glucagon (GLUCAGON) 1 MG ASDIR PRN IM Dietitian nutrition assessment The data set between the solid lines has been imported from the dietitian's assessment. BMI Calculated: 34.9 Nutrition related diagnosis: Nutrition diagnosis details: Nutrition problem: Nutrition etiology: Nutrition signs and symptoms: Nutrition prescription: Dietitian name: Assessment completed: Physical Exam General appearance: chronically ill appearing, alert, awake, oriented Neck: supple/no meningismus Cardiovascular: normal capillary refill Respiratory: clear to auscultation Abdomen: soft Genitourinary: Genitourinary: bladder not palpable, catheter in situ, hematuria Extremities: no edema Neuro/KNOWLEDGE MANAGER: alert, oriented X 3 Free text obj notes: Physical Examination: Constitutional: Obesity Eyes: normal external eye, conjunctiva and sclera normal Ears, nose, mouth, throat: normocephalic, moist mucous membranes Respiratory: respirations unlabored on room air Gastrointestinal: soft, non-distended, non-tender, no costovertebral angle tenderness Genitourinary: uncircumcised, severe phimosis, buried penis, bilateral descended testes Musculoskeletal: no clubbing, edema throughout all of his extremities, evidence of right lower extremity cellulitis and marked edema of his right leg Hematologic: no bruising Procedure: He was prepped and draped in the usual sterile fashion. Due to the his critical nature decision was made to proceed with Ornelas placement. We initially began by placing a 18 coud however due to his marked phimosis this would not pass. A 16 Tanzanian catheter was also attempted and also would not pass through his fibrotic foreskin. A straight sensor wire was passed blindly through the phimosis into the meatus and determined to be in the bladder. An 18 igiugig catheter was attempted be passed over the sensor wire however due to what appears to be meatal stenosis would not pass. He was then given a dose of 1 mg of Ativan to assist with his agitation. We then serially dilated his meatus using Ghanshyam dilators from 8 Tanzanian to 22 Tanzanian. The 18 Tanzanian catheter was then passed over the sensor wire without difficulty. Immediately clear urine drained. 10 cc of sterile water was instilled into the Ornelas bulb, sensor wire removed, and the catheter bag attached. Diagnosis, Assessment Plan Free Text A P: This is a 69-year-old male with decompensated cirrhosis, diabetes alleged history of prostate cancer, BPH, tobacco and alcohol abuse who is admitted for sepsis. Patient is altered. Recommend manual irrigation of the Ornelas catheter every 3 to 4 hours and as needed for nondraining Ornelas. In the event the patient requires further bladder irrigation or continuous he likely will require cystoscopic placement of a three-way Ornelas catheter due to his previous difficulties and catheter placement. This case was discussed with his primary urologist and is in agreement. at 1108 RPT #:[id number] END OF REPORT [facility] 2024-10-13 07:44:00 [facility] ([facility]) Hospitalist Progress Note REPORT#:[id number] REPORT STATUS: Signed REPORT INITIALIZATION DATE:10/13/24 TIME: 743 PATIENT: ABAD HARRINGTON UNIT #: [id number] ROOM/BED: [place] [id number] : 55 AGE: 69 SEX: M ATTEND: Luisa Vincent MD ADM AUTHOR: Thea Clark MD R1 REPT SERVICE DT/TIME: 10/13/24 0744 * ALL edits or amendments must be made on the electronic/computer document * Subjective Chief complaint: continues to improve good uop no distress 14 point ROS negative unless stated Review of Systems Constitutional: Denies: chills, fever, generalized weakness. Skin: Denies: abrasion, bruising. Eyes: Denies: itching, diplopia. ENT: Reports: mouth pain, nasal congestion. Respiratory: Reports: SOB, wheezing. Denies: productive cough (sputum). Cardiovascular: Denies: chest pain, CORTEZ (dyspnea on exertion). Neuro: Reports: change in LOC, confusion. Free Text ROS Notes Free Text ROS Notes: AMS Objective General VS/I O: Vital Signs: Date Time Temp Pulse Resp B/P B/P Pulse O2 O2 Flow FiO2 Mean Ox Delivery Rate 10/13 0711 36.6 89 16 106/53 70.8 95 10/13 0554 95 Room air 3 10/13 0354 36.8 90 16 105/63 76.8 94 10/12 2323 Nasal 4 cannula 10/12 2312 36.6 97 16 111/66 80.9 92 10/12 2007 36.7 96 16 104/66 78.3 94 10/12 1851 95 Nasal 4 cannula 10/12 1525 37.0 88 16 110/62 78.2 91 10/12 1021 37.0 84 16 137/66 89.9 95 10/12 0945 Nasal 3 cannula 10/12 0832 87 93 10/12 0826 36.4 87 115/70 85.1 85 24 hour I O ending at 0700: 10/13 0700 10/12 1900 Intake Total 800 Output Total 1600 1000 Balance -1600 -200 Intake, Oral 800 Output, Urine 1600 1000 PATIENT WEIGHT: Weight (lb): 243 Weight (oz): 2.72 Weight (kg): 110.300 Medications: Active Meds + DC'd Last 24 Hrs Furosemide (LASIX) 40 MG DAILY PO Spironolactone (ALDACTONE) 25 MG BID PO Lactulose (LACTULOSE) 20 GM BID 9A 5P PO Midazolam HCl (VERSED) 5 MG ASDIR IV (CKD) Thiamine HCl (THIAMINE HCL) 100 MG DAILY FEED-TUBE Albuterol/Ipratropium (IPRATR-ALBUTEROL 0.5-3 MG/3 ML) 3 ML RTQ6H NEB Guaifenesin (MUCINEX ER) 600 MG BID PO Sodium Chloride (SODIUM CHLORIDE) 10 ML BID IV Sodium Chloride (SODIUM CHLORIDE) 10 ML ASDIR PRN IV Albumin Human (ALBUMIN HUMAN) 400 ML ONCE ONE IV Folic Acid (FOLIC ACID) 1 MG DAILY PO Multivitamins Therapeutic (THERAGRAN) 1 TAB DAILY PO Calcium Gluconate (Calcium Gluconate 1 GM/NS 50 mL (B2)) 50 ML ASDIR PRN IV Calcium Gluconate (Calcium Gluconate 1 GM/NS 50 mL (B2)) 50 ML ASDIR PRN IV Lorazepam (ATIVAN) 1 MG Q4H PRN PRN IV Magnesium Sulfate (MAGNESIUM SULF 2 GM/SWI 50 ML) 50 ML ASDIR PRN IV Potassium Chloride (POTASSIUM CHLORIDE 20 MEQ/100 ML PREMIX) 100 ML ASDIR PRN IV Potassium Chloride (POTASSIUM CHLORIDE 20 MEQ/100 ML PREMIX) 100 ML ASDIR PRN IV Potassium Chloride (POTASSIUM CHLORIDE 20 MEQ/100 ML PREMIX) 100 ML ASDIR PRN IV Potassium Chloride (POTASSIUM CHLORIDE 20 MEQ/100 ML PREMIX) 100 ML ASDIR PRN IV Potassium Phosphate (POTASSIUM PHOSPHATE) 15 MM ASDIR PRN IV (CKD) Sodium Chloride (SODIUM CHLORIDE 0.9%) 100 ML Sodium Phosphate (SODIUM PHOSPHATE) 15 MMOL ASDIR PRN IV Sodium Chloride (SODIUM CHLORIDE 0.9%) 100 ML Sodium Phosphate (SODIUM PHOSPHATE) 20 MMOL ASDIR PRN IV Sodium Chloride (SODIUM CHLORIDE 0.9%) 100 ML Sodium Phosphate (SODIUM PHOSPHATE) 30 MMOL ASDIR PRN IV Sodium Chloride (SODIUM CHLORIDE 0.9%) 100 ML Sterile Water (WATER FOR INJECTION) 10 ML ASDIR PRN IV Dextrose/Water (DEXTROSE 10%) 125 ML ASDIR PRN IV (CKD) Dextrose/Water (DEXTROSE 10%) 250 ML ASDIR PRN IV (CKD) Dextrose/Water (DEXTROSE 10%) 125 ML ASDIR PRN IV (CKD) Dextrose/Water (DEXTROSE 10%) 250 ML ASDIR PRN IV (CKD) Glucagon (GLUCAGON) 1 MG ASDIR PRN IM Glucagon (GLUCAGON) 1 MG ASDIR PRN IM Physical Exam General appearance: alert, awake, oriented Head/Eyes: PERRL ENT: moist mucosal membranes Cardiovascular: normal capillary refill Respiratory: aerating well Abdomen: tenderness Free Text Obj Notes Free Text Obj Notes: PHYSICAL EXAMINATION General appearance: Arousable AMS 5 L nasal cannula Head/Eyes: atraumatic, normocephalic, PERRL, EOMI ENT: normal ear left, normal ear right, normal nose, normal pharynx Neck: full range of motion, supple/no meningismus Cardiovascular: normal S1/S2, regular rate rhythm Respiratory/chest: Hypoxia decreased breath sounds bilaterally Abdomen: soft, non-tender, normal bowel sounds Genitourinary: deferred Extremities: Bilateral leg edema Musculoskeletal: full range of motion, normal inspection Neuro/KNOWLEDGE MANAGER alert, oriented X 2, CNII-XII intact Skin: Lower extremity chronic changes Psychiatry: AMS Diagnosis, Assessment Plan Free Text DxA P Notes Free text DxA P notes: Acute hypoxic respiratory failure - Nasal cannula oxygen 3L - Pulmonary consult Decompensated cirrhosis of liver with anasarca and acute liver failure - hepatic encephalopathy - IV diuresis- Furosemide/ Paracentesus/ Lactulose - Hep pannel- HCV ab positive, will need outpatient work for HCV - S/P paracentesis 10/03 with removal of 5.6 L - 10/11: s/p paracentesis 2.4L of ascitic fluid removed. - Monitor electrolytes and labs - GI consult Pneumonia - S/p Ceftriaxone - Follow cultures- Negative - neb tx and Mucinex - S/P bronchoscopy 10/06. Altered mental status/ethanol abuse Hepatic encephalopathy - lactulose- 2 BM - improving ammonia - CIWA protocol - off Librium Hypocalcemia Chronic - TSH and PTH ordered - Replace - Recheck in a.m. - Nephrology consultation Urinary obstruction - ornelas placed by Urologist - Hematuria present Diabetes mellitus type 2 Sliding scale insulin- D'cd 12. Monitor closely Discussed with charge nurse DVT prophylaxis with Lovenox 10.13- Transferred to floor yesterday; PT/OT pending eval. Pt had hematuria- Ornelas drained 2600 hematuria. Per urology In the event the patient requires further bladder irrigation or continuous he likely will require cystoscopic placement of a three-way Ornelas catheter at 1138 at 1320 RPT #:[id number] END OF REPORT [facility] 2024-10-12 15:39:00 [facility] Pulmonology Progress Note REPORT#:[id number] REPORT STATUS: Signed REPORT INITIALIZATION DATE:10/12/24 TIME: 1539 PATIENT: ABAD HARRINGTON UNIT #: [id number] ROOM/BED: [place] [address] : 55 AGE: 69 SEX: M ATTEND: Luisa Vincent MD ADM AUTHOR: Arsh Tamez MD REPT SERVICE DT/TIME: 10/12/24 1539 * ALL edits or amendments must be made on the electronic/computer document * Subjective Chief complaint: AMS. Comments: transferred to floor intermittent confusion remains on oxygen ROS: unreliable Objective General VS/I O: Last Documented: Result Date Time Pulse Ox 91 10/12 1525 B/P 110/62 10/12 1525 B/P Mean 78.2 10/12 1525 Temp 98.6 10/12 1525 Pulse 88 10/12 1525 Resp 16 10/12 1525 O2 Delivery Nasal cannula 10/12 0945 O2 Flow Rate 3 10/12 0945 FiO2 32 10/12 0700 24 hour I O ending at 0700: 10/11 1900 10/12 0700 Intake Total 600 320 Output Total 1200 1120 Balance -600 -800 Intake, Oral 600 320 Output, Urine 1200 1120 PATIENT WEIGHT: Weight (lb): 243 Weight (oz): 2.72 Weight (kg): 110.300 Medications: Active Meds + DC'd Last 24 Hrs Enoxaparin Sodium (LOVENOX) 40 MG DAILY SUBQ (CAN) Furosemide (LASIX) 40 MG DAILY PO Spironolactone (ALDACTONE) 25 MG BID PO Lactulose (LACTULOSE) 20 GM BID 9A 5P PO Midazolam HCl (VERSED) 5 MG ASDIR IV (CKD) Thiamine HCl (THIAMINE HCL) 100 MG DAILY FEED-TUBE Albuterol/Ipratropium (IPRATR-ALBUTEROL 0.5-3 MG/3 ML) 3 ML RTQ6H NEB Guaifenesin (MUCINEX ER) 600 MG BID PO Sodium Chloride (SODIUM CHLORIDE) 10 ML BID IV Sodium Chloride (SODIUM CHLORIDE) 10 ML ASDIR PRN IV Albumin Human (ALBUMIN HUMAN) 400 ML ONCE ONE IV Folic Acid (FOLIC ACID) 1 MG DAILY PO Multivitamins Therapeutic (THERAGRAN) 1 TAB DAILY PO Calcium Gluconate (Calcium Gluconate 1 GM/NS 50 mL (B2)) 50 ML ASDIR PRN IV Calcium Gluconate (Calcium Gluconate 1 GM/NS 50 mL (B2)) 50 ML ASDIR PRN IV Lorazepam (ATIVAN) 1 MG Q4H PRN PRN IV Magnesium Sulfate (MAGNESIUM SULF 2 GM/SWI 50 ML) 50 ML ASDIR PRN IV Potassium Chloride (POTASSIUM CHLORIDE 20 MEQ/100 ML PREMIX) 100 ML ASDIR PRN IV Potassium Chloride (POTASSIUM CHLORIDE 20 MEQ/100 ML PREMIX) 100 ML ASDIR PRN IV Potassium Chloride (POTASSIUM CHLORIDE 20 MEQ/100 ML PREMIX) 100 ML ASDIR PRN IV Potassium Chloride (POTASSIUM CHLORIDE 20 MEQ/100 ML PREMIX) 100 ML ASDIR PRN IV Potassium Phosphate (POTASSIUM PHOSPHATE) 15 MM ASDIR PRN IV (CKD) Sodium Chloride (SODIUM CHLORIDE 0.9%) 100 ML Sodium Phosphate (SODIUM PHOSPHATE) 15 MMOL ASDIR PRN IV Sodium Chloride (SODIUM CHLORIDE 0.9%) 100 ML Sodium Phosphate (SODIUM PHOSPHATE) 20 MMOL ASDIR PRN IV Sodium Chloride (SODIUM CHLORIDE 0.9%) 100 ML Sodium Phosphate (SODIUM PHOSPHATE) 30 MMOL ASDIR PRN IV Sodium Chloride (SODIUM CHLORIDE 0.9%) 100 ML Sterile Water (WATER FOR INJECTION) 10 ML ASDIR PRN IV Dextrose/Water (DEXTROSE 10%) 125 ML ASDIR PRN IV (CKD) Dextrose/Water (DEXTROSE 10%) 250 ML ASDIR PRN IV (CKD) Dextrose/Water (DEXTROSE 10%) 125 ML ASDIR PRN IV (CKD) Dextrose/Water (DEXTROSE 10%) 250 ML ASDIR PRN IV (CKD) Glucagon (GLUCAGON) 1 MG ASDIR PRN IM Glucagon (GLUCAGON) 1 MG ASDIR PRN IM Physical Exam General appearance: chronically ill appearing Head/eyes: atraumatic, normocephalic, PERRL, EOMI, clear cornea, normal conjunctiva/sclera, normal fundi, normal eyelids/periorb. ENT: ENT: normal dentition, normal ear left, normal ear right, normal nose, normal pharynx, normal sinus Neck: full range of motion, non-tender, normal thyroid, supple/no meningismus, no bruit/NL carotids, no JVD, no lymphadenopathy, no masses or swelling Cardiovascular: regular rate rhythm Respiratory/chest: crackles, aerating well, symmetric expansion, no distress Abdomen: soft, non-tender, no distention, no guarding, no mass/organomegaly, no rebound Extremities: edema, moves all, normal capillary refill Musculoskeletal: full range of motion, normal inspection Neuro/KNOWLEDGE MANAGER: alert Skin: dry, intact Lymphatics: axilla normal, inguinal normal, neck normal, no lymphadenopathy Psychiatry: normal affect, normal judgment/insight, normal mood Results Findings/Data: Laboratory Tests 10/12 0714 Chemistry TSH (0.550 - 4.780 uIU/mL) 1.998 Results: labs reviewed, vital signs reviewed, x-ray personally reviewed, current med profile rev'd Diagnosis, Assessment Plan Free Text A P: 1. Sepsis Suspicious given tachycardia and reported blood culture positive Empiric antibiotics Etiology is unclear -> possibly aspiration pneumonia? better 2. Cirrhosis Decompensated GI following Ammonia elevated Lactulose s/p paracentesis 10/03 with removal of 5.6 L plan for repeat paracentesis today - s/p repeat with 3L removed 3. Pleural effusion Possible hepatic hydrothorax? Repeat chest x-ray Follow symptoms 4. Hypoxemia Wean oxygen as tolerated 5. Altered mental status/ethanol abuse Hepatic encephalopathy lactulose improving ammonia CIWA protocol off Librium 6. Pulmonary infiltrates likely aspiration pneumonia abx cont nebs and Mucinex s/p bronchoscopy 10/06. Follow cultures. Continue diuresis as tolerated requersting d/c but appears very weak. rehab? at 1541 RPT #:[id number] END OF REPORT [facility] 2024-10-12 11:12:00 [facility] ([facility] Gastroenterology Progress Note REPORT#:[id number] REPORT STATUS: Signed REPORT INITIALIZATION DATE:10/12/24 TIME: 1111 PATIENT: ABAD HARRINGTON UNIT #: [id number] ROOM/BED: [place] [address] : 55 AGE: 69 SEX: M ATTEND: Luisa Vincent MD ADM AUTHOR: Maria Luz Veloz MD REPT SERVICE DT/TIME: 10/12/24 1112 * ALL edits or amendments must be made on the electronic/computer document * Subjective Chief complaint: denies n/v/abd pain Review of Systems All systems rev neg: except as marked Objective General VS/I O: Last Documented: Result Date Time Pulse Ox 95 10/12 1021 B/P 137/66 10/12 1021 B/P Mean 89.9 10/12 1021 Temp 98.6 10/12 1021 Pulse 84 10/12 1021 Resp 16 10/12 1021 O2 Delivery Nasal cannula 10/12 0945 O2 Flow Rate 3 10/12 0945 FiO2 32 10/12 0700 24 hour I O ending at 0700: 10/12 0700 10/11 1900 Intake Total 320 600 Output Total 1120 1200 Balance -800 -600 Intake, Oral 320 600 Output, Urine 1120 1200 PATIENT WEIGHT: Weight (lb): 243 Weight (oz): 2.72 Weight (kg): 110.300 Physical Exam General appearance: alert, awake HEENT: anicteric, atraumatic, normocephalic Neck: full range of motion, non-tender, supple/no meningismus Cardiovascular: normal S1/S2, regular rate rhythm Respiratory: decreased breath sounds, symmetric expansion Abdomen: ascites, distended, normal bowel sounds Extremities: moves all Skin: dry, intact Diagnosis, Assessment Plan Free Text A P: 1. Cirrhosis of liver w/ascites will order hep panel, and INR - paracentesis - lactulose, lasix 2. Hepatic Encephalopathy II - ammonia 43 - lactulose 3. Pneumonia - pulmonary consulted 10/03 - low MELDNA score, HCV Ab positive, will need outpatient work for HCV 10/04 - increase lactulose to q2 hr till he wakes up Grade I-II hepatic encephalopathy 10/05 - still confused, stop librium, will use Ativan. decrease lactulose to q8hr sinc ammonia <40 its possible AMS from chronic abuse of ETOH - withrawl vs wernicke's 10/06 more awake today, no gi bleeding, resting 10/07 continue with lactulose, rectal tube in place on lasix 10/08-HE I to II, cont lactulose 10/09-Having 2 BMs per day. Continues confused. -Await paracentesis 10/10 continue with supportive care and paracentesis 10/11: s/p paracentesis 2.4L of ascitic fluid removed. 10/12 resting slow improvement From GI standpoint we will continue to monitor the patient's progress at 1113 RPT #:[id number] END OF REPORT [facility] 2024-10-12 07:03:00 [facility] ([facility]) Hospitalist Progress Note REPORT#:[id number] REPORT STATUS: Signed REPORT INITIALIZATION DATE:10/12/24 TIME: 07 PATIENT: ABAD HARRINGTON UNIT #: [id number] ROOM/BED: [place] [id number] : 55 AGE: 69 SEX: M ATTEND: Luisa Vincent MD ADM AUTHOR: Thea Clark MD R1 REPT SERVICE DT/TIME: 10/12/24 0703 * ALL edits or amendments must be made on the electronic/computer document * Subjective Chief complaint: continues to improve good uop no distress 14 point ROS negative unless stated Review of Systems Skin: Reports: bruising, contusion, diaphoresis. Eyes: Denies: eye pain. Respiratory: Reports: SOB, wheezing. Denies: hemoptysis, non productive cough. Cardiovascular: Reports: CORTEZ (dyspnea on exertion), edema, orthopnea. GI: Reports: diarrhea, GERD. : Reports: hematuria. Musculoskeletal: Reports: joint pain, joint swelling, lumbar pain, myalgias, neck pain. Neuro: Denies: change in LOC, confusion, lightheaded, syncope. Psych: Denies: agitation, anxiety. Free Text ROS Notes Free Text ROS Notes: AMS Objective General VS/I O: Vital Signs: Date Time Temp Pulse Resp B/P B/P Pulse O2 O2 Flow FiO2 Mean Ox Delivery Rate 10/12 0600 88 17 106/59 79 83 10/12 0400 37.2 16 10/12 0400 83 19 108/59 80 99 10/12 0300 86 17 90 10/12 0200 86 22 111/64 82 94 10/12 0100 87 24 94 10/12 0000 36.8 18 10/11 2334 97 Nasal 3.5 cannula 10/11 2300 85 17 96 10/11 2200 90 17 97/52 69 96 10/11 2100 96 20 93 10/11 2000 37.1 18 10/11 2000 Nasal 4 cannula 10/11 2000 96 25 109/57 78 93 10/11 1900 97 10/11 1900 29 92 10/11 1820 93 Nasal 3 cannula 10/11 1741 37.0 10/11 1322 37.1 10/11 1100 80 18 98/54 70 99 10/11 1000 83 25 93/54 68 97 10/11 0900 85 12 115/58 79 91 10/11 0830 Nasal 3 cannula 10/11 0815 36.6 10/11 0800 91 117/65 86 93 24 hour I O ending at 0700: 10/12 0700 10/11 1900 Intake Total 320 600 Output Total 1120 1200 Balance -800 -600 Intake, Oral 320 600 Output, Urine 1120 1200 PATIENT WEIGHT: Weight (lb): 243 Weight (oz): 2.72 Weight (kg): 110.300 Medications: Active Meds + DC'd Last 24 Hrs Enoxaparin Sodium (LOVENOX) 40 MG DAILY SUBQ (CAN) Furosemide (LASIX) 40 MG DAILY PO Spironolactone (ALDACTONE) 25 MG BID PO Lactulose (LACTULOSE) 20 GM BID 9A 5P PO Enoxaparin Sodium (LOVENOX) 40 MG Q12H SUBQ (DC) Fentanyl Citrate (SUBLIMAZE) 100 MCG ASDIR IV (DC) Midazolam HCl (VERSED) 5 MG ASDIR IV (CKD) Thiamine HCl (THIAMINE HCL) 100 MG DAILY FEED-TUBE Albuterol/Ipratropium (IPRATR-ALBUTEROL 0.5-3 MG/3 ML) 3 ML RTQ6H NEB Guaifenesin (MUCINEX ER) 600 MG BID PO Sodium Chloride (SODIUM CHLORIDE) 10 ML BID IV Sodium Chloride (SODIUM CHLORIDE) 10 ML ASDIR PRN IV Albumin Human (ALBUMIN HUMAN) 400 ML ONCE ONE IV Folic Acid (FOLIC ACID) 1 MG DAILY PO Multivitamins Therapeutic (THERAGRAN) 1 TAB DAILY PO Calcium Gluconate (Calcium Gluconate 1 GM/NS 50 mL (B2)) 50 ML ASDIR PRN IV Calcium Gluconate (Calcium Gluconate 1 GM/NS 50 mL (B2)) 50 ML ASDIR PRN IV Lorazepam (ATIVAN) 1 MG Q4H PRN PRN IV Magnesium Sulfate (MAGNESIUM SULF 2 GM/SWI 50 ML) 50 ML ASDIR PRN IV Potassium Chloride (POTASSIUM CHLORIDE 20 MEQ/100 ML PREMIX) 100 ML ASDIR PRN IV Potassium Chloride (POTASSIUM CHLORIDE 20 MEQ/100 ML PREMIX) 100 ML ASDIR PRN IV Potassium Chloride (POTASSIUM CHLORIDE 20 MEQ/100 ML PREMIX) 100 ML ASDIR PRN IV Potassium Chloride (POTASSIUM CHLORIDE 20 MEQ/100 ML PREMIX) 100 ML ASDIR PRN IV Potassium Phosphate (POTASSIUM PHOSPHATE) 15 MM ASDIR PRN IV (CKD) Sodium Chloride (SODIUM CHLORIDE 0.9%) 100 ML Sodium Phosphate (SODIUM PHOSPHATE) 15 MMOL ASDIR PRN IV Sodium Chloride (SODIUM CHLORIDE 0.9%) 100 ML Sodium Phosphate (SODIUM PHOSPHATE) 20 MMOL ASDIR PRN IV Sodium Chloride (SODIUM CHLORIDE 0.9%) 100 ML Sodium Phosphate (SODIUM PHOSPHATE) 30 MMOL ASDIR PRN IV Sodium Chloride (SODIUM CHLORIDE 0.9%) 100 ML Sterile Water (WATER FOR INJECTION) 10 ML ASDIR PRN IV Dextrose/Water (DEXTROSE 10%) 125 ML ASDIR PRN IV (CKD) Dextrose/Water (DEXTROSE 10%) 250 ML ASDIR PRN IV (CKD) Dextrose/Water (DEXTROSE 10%) 125 ML ASDIR PRN IV (CKD) Dextrose/Water (DEXTROSE 10%) 250 ML ASDIR PRN IV (CKD) Glucagon (GLUCAGON) 1 MG ASDIR PRN IM Glucagon (GLUCAGON) 1 MG ASDIR PRN IM Physical Exam General appearance: alert, awake, oriented Head/Eyes: PERRL ENT: moist mucosal membranes Cardiovascular: normal capillary refill Respiratory: aerating well Abdomen: tenderness Free Text Obj Notes Free Text Obj Notes: PHYSICAL EXAMINATION General appearance: Arousable AMS 5 L nasal cannula Head/Eyes: atraumatic, normocephalic, PERRL, EOMI ENT: normal ear left, normal ear right, normal nose, normal pharynx Neck: full range of motion, supple/no meningismus Cardiovascular: normal S1/S2, regular rate rhythm Respiratory/chest: Hypoxia decreased breath sounds bilaterally Abdomen: soft, non-tender, normal bowel sounds Genitourinary: deferred Extremities: Bilateral leg edema Musculoskeletal: full range of motion, normal inspection Neuro/KNOWLEDGE MANAGER alert, oriented X 2, CNII-XII intact Skin: Lower extremity chronic changes Psychiatry: AMS Diagnosis, Assessment Plan Free Text DxA P Notes Free text DxA P notes: Acute hypoxic respiratory failure - Nasal cannula oxygen 3L - Pulmonary consult Decompensated cirrhosis of liver with anasarca and acute liver failure - hepatic encephalopathy - IV diuresis- Furosemide/ Paracentesus/ Lactulose - Hep pannel- HCV ab positive, will need outpatient work for HCV - S/P paracentesis 10/03 with removal of 5.6 L - 10/11: s/p paracentesis 2.4L of ascitic fluid removed. - Monitor electrolytes and labs - GI consult Pneumonia - S/p Ceftriaxone - Follow cultures- Negative - neb tx and Mucinex - S/P bronchoscopy 10/06. Altered mental status/ethanol abuse Hepatic encephalopathy - lactulose- 2 BM - improving ammonia - CIWA protocol - off Librium Hypocalcemia Chronic - TSH-1.98 and PTH ordered - Replace - Recheck in a.m. - Nephrology consultation Urinary obstruction - ornelas placed by Urologist - Hematuria present - resolved 10.10 Diabetes mellitus type 2 Sliding scale insulin- D'cd 10.10 Monitor closely Discussed with charge nurse DVT prophylaxis with Lovenox 10.12-Move to floors today. Denies palpitations, chest pain, shortness of breath , or headache. No obvious acute motor or sensory deficits. Per PT/OT - Possible d.c when strength is better at 0853 at 1320 RPT #:[id number] END OF REPORT [facility] 2024-10-11 14:35:00 [facility] ([facility] Pulmonology Progress Note REPORT#:[id number] REPORT STATUS: Signed REPORT INITIALIZATION DATE:10/11/24 TIME: 1434 PATIENT: ABAD HARRINGTON UNIT #: [id number] ROOM/BED: [place] [id number] : 55 AGE: 69 SEX: M ATTEND: Luisa Vincent MD ADM AUTHOR: Arsh Tamez MD REPT SERVICE DT/TIME: 10/11/24 1435 * ALL edits or amendments must be made on the electronic/computer document * Subjective Chief complaint: AMS. Comments: more alert edema improving ROS: no n/v/cp/dimas Objective General VS/I O: Last Documented: Result Date Time Temp 98.7 10/11 1322 Pulse Ox 99 10/11 1100 B/P 98/54 10/11 1100 B/P Mean 70 10/11 1100 Pulse 80 10/11 1100 Resp 18 10/11 1100 O2 Delivery Nasal cannula 10/11 0830 O2 Flow Rate 3 10/11 0830 FiO2 32 10/11 0700 24 hour I O ending at 0700: 10/10 1900 10/11 0700 Intake Total 720 280 Output Total 3705 950 Balance -2985 -670 Intake, Oral 720 280 Output, 0 Estimated Blood Loss Output, Other 2400 Output, Urine 1305 950 Patient 271 lb 243 lb Weight Weight Bed scale Bed scale Measurement Method PATIENT WEIGHT: Weight (lb): 243 Weight (oz): 2.72 Weight (kg): 110.300 Medications: Active Meds + DC'd Last 24 Hrs Enoxaparin Sodium (LOVENOX) 40 MG DAILY SUBQ Furosemide (LASIX) 40 MG DAILY PO Spironolactone (ALDACTONE) 25 MG BID PO Lactulose (LACTULOSE) 20 GM BID 9A 5P PO Enoxaparin Sodium (LOVENOX) 40 MG Q12H SUBQ (DC) Fentanyl Citrate (SUBLIMAZE) 100 MCG ASDIR IV (DC) Midazolam HCl (VERSED) 5 MG ASDIR IV (CKD) Thiamine HCl (THIAMINE HCL) 100 MG DAILY FEED-TUBE Albuterol/Ipratropium (IPRATR-ALBUTEROL 0.5-3 MG/3 ML) 3 ML RTQ6H NEB Guaifenesin (MUCINEX ER) 600 MG BID PO Sodium Chloride (SODIUM CHLORIDE) 10 ML BID IV Sodium Chloride (SODIUM CHLORIDE) 10 ML ASDIR PRN IV Albumin Human (ALBUMIN HUMAN) 400 ML ONCE ONE IV Folic Acid (FOLIC ACID) 1 MG DAILY PO Multivitamins Therapeutic (THERAGRAN) 1 TAB DAILY PO Calcium Gluconate (Calcium Gluconate 1 GM/NS 50 mL (B2)) 50 ML ASDIR PRN IV Calcium Gluconate (Calcium Gluconate 1 GM/NS 50 mL (B2)) 50 ML ASDIR PRN IV Lorazepam (ATIVAN) 1 MG Q4H PRN PRN IV Magnesium Sulfate (MAGNESIUM SULF 2 GM/SWI 50 ML) 50 ML ASDIR PRN IV Potassium Chloride (POTASSIUM CHLORIDE 20 MEQ/100 ML PREMIX) 100 ML ASDIR PRN IV Potassium Chloride (POTASSIUM CHLORIDE 20 MEQ/100 ML PREMIX) 100 ML ASDIR PRN IV Potassium Chloride (POTASSIUM CHLORIDE 20 MEQ/100 ML PREMIX) 100 ML ASDIR PRN IV Potassium Chloride (POTASSIUM CHLORIDE 20 MEQ/100 ML PREMIX) 100 ML ASDIR PRN IV Potassium Phosphate (POTASSIUM PHOSPHATE) 15 MM ASDIR PRN IV (CKD) Sodium Chloride (SODIUM CHLORIDE 0.9%) 100 ML Sodium Phosphate (SODIUM PHOSPHATE) 15 MMOL ASDIR PRN IV Sodium Chloride (SODIUM CHLORIDE 0.9%) 100 ML Sodium Phosphate (SODIUM PHOSPHATE) 20 MMOL ASDIR PRN IV Sodium Chloride (SODIUM CHLORIDE 0.9%) 100 ML Sodium Phosphate (SODIUM PHOSPHATE) 30 MMOL ASDIR PRN IV Sodium Chloride (SODIUM CHLORIDE 0.9%) 100 ML Sterile Water (WATER FOR INJECTION) 10 ML ASDIR PRN IV Dextrose/Water (DEXTROSE 10%) 125 ML ASDIR PRN IV (CKD) Dextrose/Water (DEXTROSE 10%) 250 ML ASDIR PRN IV (CKD) Dextrose/Water (DEXTROSE 10%) 125 ML ASDIR PRN IV (CKD) Dextrose/Water (DEXTROSE 10%) 250 ML ASDIR PRN IV (CKD) Glucagon (GLUCAGON) 1 MG ASDIR PRN IM Glucagon (GLUCAGON) 1 MG ASDIR PRN IM Physical Exam General appearance: chronically ill appearing Head/eyes: atraumatic, normocephalic, PERRL, EOMI, clear cornea, normal conjunctiva/sclera, normal fundi, normal eyelids/periorb. ENT: ENT: normal dentition, normal ear left, normal ear right, normal nose, normal pharynx, normal sinus Neck: full range of motion, non-tender, normal thyroid, supple/no meningismus, no bruit/NL carotids, no JVD, no lymphadenopathy, no masses or swelling Cardiovascular: regular rate rhythm Respiratory/chest: crackles, aerating well, symmetric expansion, no distress Abdomen: soft, non-tender, no distention, no guarding, no mass/organomegaly, no rebound Extremities: edema, moves all, normal capillary refill Musculoskeletal: full range of motion, normal inspection Neuro/KNOWLEDGE MANAGER: alert Skin: dry, intact Lymphatics: axilla normal, inguinal normal, neck normal, no lymphadenopathy Psychiatry: normal affect, normal judgment/insight, normal mood Results Findings/Data: Laboratory Tests 10/11/24437: [Embedded Image Not Available] Laboratory Tests 10/11 438 Chemistry Sodium (136 - 145 mmol/L) 138 Potassium (3.5 - 5.1 mmol/L) 3.9 Chloride (98 - 107 mmol/L) 100 Carbon Dioxide (20.0 - 31.0 mmol/L) 37.0 H Anion Gap (0 - 20) 4.5 BUN (9 - 23 mg/dL) 18 Creatinine (0.60 - 1.30 mg/dL) 0.72 Glomerular Filtr Rate (mL/min) 99 Glucose (74 - 106 mg/dL) 111 H Calcium (8.7 - 10.4 mg/dL) 7.8 L Laboratory Tests 10/11 0438 Hematology WBC (4.5 - 11.0 K/mm3) 6.6 RBC (4.40 - 5.90 M/mm3) 3.67 L Hgb (13.0 - 17.0 gm/dL) 11.5 L Hct (36.0 - 48.0 %) 35.2 L MCV (80.0 - 94.0 UM3) 95.9 H MCH (25.5 - 32.5 UUG) 31.3 MCHC (29.0 - 35.5 gm/dL) 32.7 RDW (11.5 - 15.0 %) 16.9 H Plt Count (150 - 400 K/mm3) 217 MPV (7.4 - 10.4 fl) 9.6 Neut % (Auto) (49.0 - 76.0 %) 64.1 Lymph % (Auto) (23.0 - 38.0 %) 17.4 L [place] % (Auto) (1.0 - 10.0 %) 11.2 H Eos % (Auto) (1.0 - 5.0 %) 3.6 Baso % (Auto) (0.0 - 1.0 %) 1.1 H Neut # (Auto) (2.4 - 6.3 K/mm3) 4.2 Lymph # (Auto) (1.2 - 4.0 K/mm3) 1.2 [place] # (Auto) (0.0 - 0.6 K/mm3) 0.7 H Eos # (Auto) (0.0 - 0.7 K/MM3) 0.2 Baso # (Auto) (0.0 - 0.2 K/mm3) 0.1 Absolute Nucleated RBC (0.00 - 0.01 X10 3uL) 0.00 Immature Gran % (0.0 - 0.4 %) 2.6 H Nucleated RBC % (0.0 - 0.1 %) 0.0 Immature Gran # (0.00 - 0.07 x10 3/uL) 0.17 H Results: labs reviewed, vital signs reviewed, x-ray personally reviewed, current med profile rev'd Diagnosis, Assessment Plan Free Text A P: 1. Sepsis Suspicious given tachycardia and reported blood culture positive Empiric antibiotics Etiology is unclear -> possibly aspiration pneumonia? better 2. Cirrhosis Decompensated GI following Ammonia elevated Lactulose s/p paracentesis 10/03 with removal of 5.6 L plan for repeat paracentesis today - s/p repeat with 3L removed 3. Pleural effusion Possible hepatic hydrothorax? Repeat chest x-ray Follow symptoms 4. Hypoxemia Wean oxygen as tolerated 5. Altered mental status/ethanol abuse Hepatic encephalopathy lactulose improving ammonia CIWA protocol off Librium 6. Pulmonary infiltrates likely aspiration pneumonia abx cont nebs and Mucinex s/p bronchoscopy 10/06. Follow cultures. Continue diuresis as tolerated requersting d/c but appears very weak at 1436 RPT #:[id number] END OF REPORT [facility] 2024-10-11 10:28:00 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 SERVICE DT/TIME: 10/11/24 1028 * ALL edits or amendments must be made on the electronic/computer document * Ro Vickers 10/11/24 1028: Subjective Chief complaint: asking to go home denies n/v/abd pain Review of Systems All systems rev neg: except as marked Objective General VS/I O: Last Documented: Result Date Time O2 Delivery Nasal cannula 10/11 0830 O2 Flow Rate 3 10/11 0830 Temp 97.9 10/11 0815 Pulse Ox 93 10/11 0800 B/P 117/65 10/11 0800 B/P Mean 86 10/11 0800 Pulse 91 10/11 0800 Resp 17 10/11 0701 FiO2 32 10/11 07 24 hour I O ending at 0700: 10/11 0700 10/10 1900 Intake Total 280 720 Output Total 950 3705 Balance -670 -2985 Intake, Oral 280 720 Output, 0 Estimated Blood Loss Output, Other 2400 Output, Urine 950 1305 Patient 110.3 kg 123.1 kg Weight Weight Bed scale Bed scale Measurement Method PATIENT WEIGHT: Weight (lb): 243 Weight (oz): 2.72 Weight (kg): 110.300 Medications: Active Meds + DC'd Last 24 Hrs Enoxaparin Sodium (LOVENOX) 40 MG DAILY SUBQ Furosemide (LASIX) 40 MG DAILY PO Spironolactone (ALDACTONE) 25 MG BID PO Lactulose (LACTULOSE) 20 GM BID 9A 5P PO Enoxaparin Sodium (LOVENOX) 40 MG Q12H SUBQ (DC) Fentanyl Citrate (SUBLIMAZE) 100 MCG ASDIR IV (CKD) Midazolam HCl (VERSED) 5 MG ASDIR IV (CKD) Thiamine HCl (THIAMINE HCL) 100 MG DAILY FEED-TUBE Albuterol/Ipratropium (IPRATR-ALBUTEROL 0.5-3 MG/3 ML) 3 ML RTQ6H NEB Guaifenesin (MUCINEX ER) 600 MG BID PO Sodium Chloride (SODIUM CHLORIDE) 10 ML BID IV Sodium Chloride (SODIUM CHLORIDE) 10 ML ASDIR PRN IV Albumin Human (ALBUMIN HUMAN) 400 ML ONCE ONE IV Dexmedetomidine HCl (PRECEDEX) 400 MCG Q24H IV (DC) Sodium Chloride (SODIUM CHLORIDE 0.9%) 96 ML Folic Acid (FOLIC ACID) 1 MG DAILY PO Multivitamins Therapeutic (THERAGRAN) 1 TAB DAILY PO Calcium Gluconate (Calcium Gluconate 1 GM/NS 50 mL (B2)) 50 ML ASDIR PRN IV Calcium Gluconate (Calcium Gluconate 1 GM/NS 50 mL (B2)) 50 ML ASDIR PRN IV Lorazepam (ATIVAN) 1 MG Q4H PRN PRN IV Magnesium Sulfate (MAGNESIUM SULF 2 GM/SWI 50 ML) 50 ML ASDIR PRN IV Potassium Chloride (POTASSIUM CHLORIDE 20 MEQ/100 ML PREMIX) 100 ML ASDIR PRN IV Potassium Chloride (POTASSIUM CHLORIDE 20 MEQ/100 ML PREMIX) 100 ML ASDIR PRN IV Potassium Chloride (POTASSIUM CHLORIDE 20 MEQ/100 ML PREMIX) 100 ML ASDIR PRN IV Potassium Chloride (POTASSIUM CHLORIDE 20 MEQ/100 ML PREMIX) 100 ML ASDIR PRN IV Potassium Phosphate (POTASSIUM PHOSPHATE) 15 MM ASDIR PRN IV (CKD) Sodium Chloride (SODIUM CHLORIDE 0.9%) 100 ML Sodium Phosphate (SODIUM PHOSPHATE) 15 MMOL ASDIR PRN IV Sodium Chloride (SODIUM CHLORIDE 0.9%) 100 ML Sodium Phosphate (SODIUM PHOSPHATE) 20 MMOL ASDIR PRN IV Sodium Chloride (SODIUM CHLORIDE 0.9%) 100 ML Sodium Phosphate (SODIUM PHOSPHATE) 30 MMOL ASDIR PRN IV Sodium Chloride (SODIUM CHLORIDE 0.9%) 100 ML Sterile Water (WATER FOR INJECTION) 10 ML ASDIR PRN IV Dextrose/Water (DEXTROSE 10%) 125 ML ASDIR PRN IV (CKD) Dextrose/Water (DEXTROSE 10%) 250 ML ASDIR PRN IV (CKD) Dextrose/Water (DEXTROSE 10%) 125 ML ASDIR PRN IV (CKD) Dextrose/Water (DEXTROSE 10%) 250 ML ASDIR PRN IV (CKD) Glucagon (GLUCAGON) 1 MG ASDIR PRN IM Glucagon (GLUCAGON) 1 MG ASDIR PRN IM Insulin Human Lispro (Admelog) 0 AC HS SUBQ (DC) Physical Exam General appearance: chronically ill appearing HEENT: anicteric, atraumatic, normocephalic Neck: full range of motion, non-tender, supple/no meningismus Cardiovascular: normal S1/S2, regular rate rhythm Respiratory: decreased breath sounds, symmetric expansion Abdomen: ascites, distended, normal bowel sounds Extremities: moves all Skin: dry, intact Results Findings/Data: Laboratory Tests 10/11/24437: [Embedded Image Not Available] Laboratory Tests 10/11 438 Chemistry Sodium (136 - 145 mmol/L) 138 Potassium (3.5 - 5.1 mmol/L) 3.9 Chloride (98 - 107 mmol/L) 100 Carbon Dioxide (20.0 - 31.0 mmol/L) 37.0 H Anion Gap (0 - 20) 4.5 BUN (9 - 23 mg/dL) 18 Creatinine (0.60 - 1.30 mg/dL) 0.72 Glomerular Filtr Rate (mL/min) 99 Glucose (74 - 106 mg/dL) 111 H Calcium (8.7 - 10.4 mg/dL) 7.8 L Laboratory Tests 10/11 10/10 0438 1317 Hematology WBC (4.5 - 11.0 K/mm3) 6.6 RBC (4.40 - 5.90 M/mm3) 3.67 L Hgb (13.0 - 17.0 gm/dL) 11.5 L Hct (36.0 - 48.0 %) 35.2 L MCV (80.0 - 94.0 UM3) 95.9 H MCH (25.5 - 32.5 UUG) 31.3 MCHC (29.0 - 35.5 gm/dL) 32.7 RDW (11.5 - 15.0 %) 16.9 H Plt Count (150 - 400 K/mm3) 217 MPV (7.4 - 10.4 fl) 9.6 Neut % (Auto) (49.0 - 76.0 %) 64.1 Lymph % (Auto) (23.0 - 38.0 %) 17.4 L [place] % (Auto) (1.0 - 10.0 %) 11.2 H Eos % (Auto) (1.0 - 5.0 %) 3.6 Baso % (Auto) (0.0 - 1.0 %) 1.1 H Neut # (Auto) (2.4 - 6.3 K/mm3) 4.2 Lymph # (Auto) (1.2 - 4.0 K/mm3) 1.2 [place] # (Auto) (0.0 - 0.6 K/mm3) 0.7 H Eos # (Auto) (0.0 - 0.7 K/MM3) 0.2 Baso # (Auto) (0.0 - 0.2 K/mm3) 0.1 Absolute Nucleated RBC (0.00 - 0.01 X10 3uL) 0.00 Total Counted 100 Immature Gran % (0.0 - 0.4 %) 2.6 H Nucleated RBC % (0.0 - 0.1 %) 0.0 Immature Gran # (0.00 - 0.07 x10 3/uL) 0.17 H Laboratory Tests 10/10 1317 Other Body Source Peritoneal Color STRAW Peritoneal Appearance HAZY Peritoneal WBC (0 - 300 MM3) 637 H Peritoneal RBC (0 MM3) 7000 Periton Polynucl WBCs (%) 6 Periton Lymphocytes (%) 60 Peritoneal Monocytes (%) 3 Periton Mesothelial (%) 6 Periton Histiocytes (%) 25 Radiology Data: Recent Impressions: SPECIAL PROCEDURES - SP PARACENTESIS W IMAGE 10/10 1216 Report Impression - Status: SIGNED Entered: 10/10/2024 1354 IMPRESSION: Technically successful ultrasound-guided diagnostic and therapeutic paracentesis. Impression By: Magen - Steve Hernández M.D. Diagnosis, Assessment Plan Free Text A P: 1. Cirrhosis of liver w/ascites will order hep panel, and INR - paracentesis - lactulose, lasix 2. Hepatic Encephalopathy II - ammonia 43 - lactulose 3. Pneumonia - pulmonary consulted 10/03 - low MELDNA score, HCV Ab positive, will need outpatient work for HCV 10/04 - increase lactulose to q2 hr till he wakes up Grade I-II hepatic encephalopathy 10/05 - still confused, stop librium, will use Ativan. decrease lactulose to q8hr sinc ammonia <40 its possible AMS from chronic abuse of ETOH - withrawl vs wernicke's 10/06 more awake today, no gi bleeding, resting 10/07 continue with lactulose, rectal tube in place on lasix 10/08-HE I to II, cont lactulose 10/09-Having 2 BMs per day. Continues confused. -Await paracentesis 10/10 continue with supportive care and paracentesis 10/11: s/p paracentesis 2.4L of ascitic fluid removed. From GI standpoint we will continue to monitor the patient's progress Maria Luz Veloz 11/16/24 1026: Diagnosis, Assessment Plan Free Text A P: Chart reviewed, along with exam and interview with TIANA, I agree with the plan as written above at 1030 at 1027 RPT #:[id number] END OF REPORT [facility] 2024-10-11 09:04:00 [facility] ([facility] Hospitalist Progress Note REPORT#:[id number] REPORT STATUS: Signed REPORT INITIALIZATION DATE:10/11/24 TIME: 09 PATIENT: ABAD HARRINGTON UNIT #: [id number] ROOM/BED: [place] [address] : 55 AGE: 69 SEX: M ATTEND: Luisa Vincent MD ADM AUTHOR: Thea Clark MD R1 REPT SERVICE DT/TIME: 10/11/24 0904 * ALL edits or amendments must be made on the electronic/computer document * Subjective Chief complaint: continues to improve good uop no distress 14 point ROS negative unless stated Review of Systems Constitutional: Denies: chills, fatigue, fever. Eyes: Denies: discharge, itching. Respiratory: Reports: SOB, wheezing. Cardiovascular: Reports: CORTEZ (dyspnea on exertion), edema. Denies: chest pain. GI: Denies: constipation. : Denies: frequency, nocturia. Psych: Denies: agitation, anxiety. All systems rev neg: except as noted Free Text ROS Notes Free Text ROS Notes: AMS Objective General VS/I O: Vital Signs: Date Time Temp Pulse Resp B/P B/P Pulse O2 O2 Flow FiO2 Mean Ox Delivery Rate 10/11 0815 36.6 10/11 0800 91 117/65 86 93 10/11 0701 83 17 120/60 83 96 10/11 0700 98 Nasal 3 32 cannula 10/11 0603 86 19 128/70 91 97 10/11 0600 85 18 98 10/11 0500 84 18 110/58 77 96 10/11 0430 37.0 10/11 0400 86 16 121/56 80 95 10/11 0300 88 112/52 75 94 10/11 0200 92 17 113/55 77 93 10/11 0100 92 21 116/56 79 94 10/11 0034 96 21 118/57 79 94 10/11 0000 98 19 92 10/10 2300 98 21 110/59 80 91 10/10 2200 100 110/54 78 89 10/10 2100 100 17 105/57 75 92 10/10 2035 Nasal 3 cannula 10/10 2000 100 20 103/52 73 89 10/10 1900 100 22 105/51 74 90 10/10 1837 93 Nasal 3 cannula 10/10 1801 96 22 145/66 95 92 10/10 1700 93 30 114/58 77 92 10/10 1600 93 24 111/55 78 91 10/10 1555 36.9 92 Nasal 2 cannula 10/10 1500 93 23 109/57 79 92 10/10 1400 93 20 109/58 80 88 10/10 1300 94 10 108/56 77 88 10/10 1206 37.3 94 Nasal 3 cannula 10/10 1205 93 Nasal 3 cannula 10/10 1200 85 19 118/56 80 93 10/10 1100 89 17 114/60 81 96 10/10 1000 86 20 113/62 82 95 24 hour I O ending at 0700: 10/11 0700 10/10 1900 Intake Total 280 720 Output Total 950 3705 Balance -670 -2985 Intake, Oral 280 720 Output, 0 Estimated Blood Loss Output, Other 2400 Output, Urine 950 1305 Patient 110.3 kg 123.1 kg Weight Weight Bed scale Bed scale Measurement Method PATIENT WEIGHT: Weight (lb): 243 Weight (oz): 2.72 Weight (kg): 110.300 Medications: Active Meds + DC'd Last 24 Hrs Furosemide (LASIX) 40 MG DAILY PO Spironolactone (ALDACTONE) 25 MG BID PO Lactulose (LACTULOSE) 20 GM BID 9A 5P PO Enoxaparin Sodium (LOVENOX) 40 MG Q12H SUBQ Fentanyl Citrate (SUBLIMAZE) 100 MCG ASDIR IV (CKD) Midazolam HCl (VERSED) 5 MG ASDIR IV (CKD) Thiamine HCl (THIAMINE HCL) 100 MG DAILY FEED-TUBE Albuterol/Ipratropium (IPRATR-ALBUTEROL 0.5-3 MG/3 ML) 3 ML RTQ6H NEB Guaifenesin (MUCINEX ER) 600 MG BID PO Sodium Chloride (SODIUM CHLORIDE) 10 ML BID IV Sodium Chloride (SODIUM CHLORIDE) 10 ML ASDIR PRN IV Albumin Human (ALBUMIN HUMAN) 400 ML ONCE ONE IV Dexmedetomidine HCl (PRECEDEX) 400 MCG Q24H IV (DC) Sodium Chloride (SODIUM CHLORIDE 0.9%) 96 ML Folic Acid (FOLIC ACID) 1 MG DAILY PO Multivitamins Therapeutic (THERAGRAN) 1 TAB DAILY PO Calcium Gluconate (Calcium Gluconate 1 GM/NS 50 mL (B2)) 50 ML ASDIR PRN IV Calcium Gluconate (Calcium Gluconate 1 GM/NS 50 mL (B2)) 50 ML ASDIR PRN IV Lorazepam (ATIVAN) 1 MG Q4H PRN PRN IV Magnesium Sulfate (MAGNESIUM SULF 2 GM/SWI 50 ML) 50 ML ASDIR PRN IV Potassium Chloride (POTASSIUM CHLORIDE 20 MEQ/100 ML PREMIX) 100 ML ASDIR PRN IV Potassium Chloride (POTASSIUM CHLORIDE 20 MEQ/100 ML PREMIX) 100 ML ASDIR PRN IV Potassium Chloride (POTASSIUM CHLORIDE 20 MEQ/100 ML PREMIX) 100 ML ASDIR PRN IV Potassium Chloride (POTASSIUM CHLORIDE 20 MEQ/100 ML PREMIX) 100 ML ASDIR PRN IV Potassium Phosphate (POTASSIUM PHOSPHATE) 15 MM ASDIR PRN IV (CKD) Sodium Chloride (SODIUM CHLORIDE 0.9%) 100 ML Sodium Phosphate (SODIUM PHOSPHATE) 15 MMOL ASDIR PRN IV Sodium Chloride (SODIUM CHLORIDE 0.9%) 100 ML Sodium Phosphate (SODIUM PHOSPHATE) 20 MMOL ASDIR PRN IV Sodium Chloride (SODIUM CHLORIDE 0.9%) 100 ML Sodium Phosphate (SODIUM PHOSPHATE) 30 MMOL ASDIR PRN IV Sodium Chloride (SODIUM CHLORIDE 0.9%) 100 ML Sterile Water (WATER FOR INJECTION) 10 ML ASDIR PRN IV Dextrose/Water (DEXTROSE 10%) 125 ML ASDIR PRN IV (CKD) Dextrose/Water (DEXTROSE 10%) 250 ML ASDIR PRN IV (CKD) Dextrose/Water (DEXTROSE 10%) 125 ML ASDIR PRN IV (CKD) Dextrose/Water (DEXTROSE 10%) 250 ML ASDIR PRN IV (CKD) Glucagon (GLUCAGON) 1 MG ASDIR PRN IM Glucagon (GLUCAGON) 1 MG ASDIR PRN IM Insulin Human Lispro (Admelog) 0 AC HS SUBQ (DC) Physical Exam General appearance: alert, awake, oriented Head/Eyes: PERRL ENT: moist mucosal membranes Cardiovascular: normal capillary refill Respiratory: aerating well Abdomen: tenderness Results Findings/Data: Laboratory Tests 10/11 0438 Chemistry Sodium (136 - 145 mmol/L) 138 Potassium (3.5 - 5.1 mmol/L) 3.9 Chloride (98 - 107 mmol/L) 100 Carbon Dioxide (20.0 - 31.0 mmol/L) 37.0 H Anion Gap (0 - 20) 4.5 BUN (9 - 23 mg/dL) 18 Creatinine (0.60 - 1.30 mg/dL) 0.72 Glomerular Filtr Rate (mL/min) 99 Glucose (74 - 106 mg/dL) 111 H Calcium (8.7 - 10.4 mg/dL) 7.8 L Laboratory Tests 10/11 10/10 0438 1317 Hematology WBC (4.5 - 11.0 K/mm3) 6.6 RBC (4.40 - 5.90 M/mm3) 3.67 L Hgb (13.0 - 17.0 gm/dL) 11.5 L Hct (36.0 - 48.0 %) 35.2 L MCV (80.0 - 94.0 UM3) 95.9 H MCH (25.5 - 32.5 UUG) 31.3 MCHC (29.0 - 35.5 gm/dL) 32.7 RDW (11.5 - 15.0 %) 16.9 H Plt Count (150 - 400 K/mm3) 217 MPV (7.4 - 10.4 fl) 9.6 Neut % (Auto) (49.0 - 76.0 %) 64.1 Lymph % (Auto) (23.0 - 38.0 %) 17.4 L [place] % (Auto) (1.0 - 10.0 %) 11.2 H Eos % (Auto) (1.0 - 5.0 %) 3.6 Baso % (Auto) (0.0 - 1.0 %) 1.1 H Neut # (Auto) (2.4 - 6.3 K/mm3) 4.2 Lymph # (Auto) (1.2 - 4.0 K/mm3) 1.2 [place] # (Auto) (0.0 - 0.6 K/mm3) 0.7 H Eos # (Auto) (0.0 - 0.7 K/MM3) 0.2 Baso # (Auto) (0.0 - 0.2 K/mm3) 0.1 Absolute Nucleated RBC (0.00 - 0.01 X10 3uL) 0.00 Total Counted 100 Immature Gran % (0.0 - 0.4 %) 2.6 H Nucleated RBC % (0.0 - 0.1 %) 0.0 Immature Gran # (0.00 - 0.07 x10 3/uL) 0.17 H Laboratory Tests 10/10 1317 Other Body Source Peritoneal Color STRAW Peritoneal Appearance HAZY Peritoneal WBC (0 - 300 MM3) 637 H Peritoneal RBC (0 MM3) 7000 Periton Polynucl WBCs (%) 6 Periton Lymphocytes (%) 60 Peritoneal Monocytes (%) 3 Periton Mesothelial (%) 6 Periton Histiocytes (%) 25 Radiology data: Recent Impressions: SPECIAL PROCEDURES - SP PARACENTESIS W IMAGE 10/10 1216 Report Impression - Status: SIGNED Entered: 10/10/2024 1354 IMPRESSION: Technically successful ultrasound-guided diagnostic and therapeutic paracentesis. Impression By: Magen Hernández M.D. Free Text Obj Notes Free Text Obj Notes: PHYSICAL EXAMINATION General appearance: Arousable AMS 5 L nasal cannula Head/Eyes: atraumatic, normocephalic, PERRL, EOMI ENT: normal ear left, normal ear right, normal nose, normal pharynx Neck: full range of motion, supple/no meningismus Cardiovascular: normal S1/S2, regular rate rhythm Respiratory/chest: Hypoxia decreased breath sounds bilaterally Abdomen: soft, non-tender, normal bowel sounds Genitourinary: deferred Extremities: Bilateral leg edema Musculoskeletal: full range of motion, normal inspection Neuro/KNOWLEDGE MANAGER alert, oriented X 2, CNII-XII intact Skin: Lower extremity chronic changes Psychiatry: AMS Diagnosis, Assessment Plan Free Text DxA P Notes Free text DxA P notes: Acute hypoxic respiratory failure - Nasal cannula oxygen 3L - Pulmonary consult Decompensated cirrhosis of liver with anasarca and acute liver failure - hepatic encephalopathy - IV diuresis- Furosemide/ Paracentesus/ Lactulose - Hep pannel- HCV ab positive, will need outpatient work for HCV - S/P paracentesis 10/03 with removal of 5.6 L - 10/11: s/p paracentesis 2.4L of ascitic fluid removed. - Monitor electrolytes and labs - GI consult Pneumonia - S/p Ceftriaxone - Follow cultures- Negative - neb tx and Mucinex - S/P bronchoscopy 10/06. Altered mental status/ethanol abuse Hepatic encephalopathy - lactulose- 2 BM - improving ammonia - CIWA protocol - off Librium Hypocalcemia - Replace - Recheck in a.m. - Nephrology consultation Urinary obstruction - ornelas placed by Urologist - Hematuria present Diabetes mellitus type 2 Sliding scale insulin- D'cd 10.10 Monitor closely Discussed with charge nurse DVT prophylaxis with Lovenox .- 10/11: s/p paracentesis 2.4L of ascitic fluid removed. at 1140 at 1320 RPT #:[id number] END OF REPORT [facility] 2024-10-10 13:57:00 [facility] ([facility]) Pulmonology Progress Note REPORT#:[id number] REPORT STATUS: Signed REPORT INITIALIZATION DATE:10/10/24 TIME: 1356 PATIENT: ABAD HARRINGTON UNIT #: [id number] ROOM/BED: [place] [address] : 55 AGE: 69 SEX: M ATTEND: Luisa Vincent MD ADM AUTHOR: Arsh Tamez MD REPT SERVICE DT/TIME: 10/10/24 1357 * ALL edits or amendments must be made on the electronic/computer document * Subjective Chief complaint: AMS. Comments: Doing about the same More awake and alert Complains of pain Shortness of breath moderate and worse with movement ROS: no nausea/vomitting, chest pain or headache Objective General VS/I O: Last Documented: Result Date Time Pulse Ox 94 10/10 1206 O2 Delivery Nasal cannula 10/10 1206 O2 Flow Rate 3 10/10 1206 Temp 99.1 10/10 1206 B/P 114/60 10/10 1100 B/P Mean 81 10/10 1100 Pulse 89 10/10 1100 Resp 17 10/10 1100 24 hour I O ending at 0700: 10/09 1900 10/10 0700 Intake Total 500 Output Total 800 Balance -300 Intake, Oral 500 Output, Urine 800 PATIENT WEIGHT: Weight (lb): 271 Weight (oz): 6.22 Weight (kg): 123.100 Medications: Active Meds + DC'd Last 24 Hrs Furosemide (LASIX) 40 MG DAILY PO Spironolactone (ALDACTONE) 25 MG BID PO Lactulose (LACTULOSE) 20 GM BID 9A 5P PO Enoxaparin Sodium (LOVENOX) 40 MG Q12H SUBQ Fentanyl Citrate (SUBLIMAZE) 100 MCG ASDIR IV (CKD) Midazolam HCl (VERSED) 5 MG ASDIR IV (CKD) Thiamine HCl (THIAMINE HCL) 100 MG DAILY FEED-TUBE Albuterol/Ipratropium (IPRATR-ALBUTEROL 0.5-3 MG/3 ML) 3 ML RTQ6H NEB Guaifenesin (MUCINEX ER) 600 MG BID PO Sodium Chloride (SODIUM CHLORIDE) 10 ML BID IV Sodium Chloride (SODIUM CHLORIDE) 10 ML ASDIR PRN IV Albumin Human (ALBUMIN HUMAN) 400 ML ONCE ONE IV Dexmedetomidine HCl (PRECEDEX) 400 MCG Q24H IV (DC) Sodium Chloride (SODIUM CHLORIDE 0.9%) 96 ML Folic Acid (FOLIC ACID) 1 MG DAILY PO Multivitamins Therapeutic (THERAGRAN) 1 TAB DAILY PO Calcium Gluconate (Calcium Gluconate 1 GM/NS 50 mL (B2)) 50 ML ASDIR PRN IV Calcium Gluconate (Calcium Gluconate 1 GM/NS 50 mL (B2)) 50 ML ASDIR PRN IV Lorazepam (ATIVAN) 1 MG Q4H PRN PRN IV Magnesium Sulfate (MAGNESIUM SULF 2 GM/SWI 50 ML) 50 ML ASDIR PRN IV Potassium Chloride (POTASSIUM CHLORIDE 20 MEQ/100 ML PREMIX) 100 ML ASDIR PRN IV Potassium Chloride (POTASSIUM CHLORIDE 20 MEQ/100 ML PREMIX) 100 ML ASDIR PRN IV Potassium Chloride (POTASSIUM CHLORIDE 20 MEQ/100 ML PREMIX) 100 ML ASDIR PRN IV Potassium Chloride (POTASSIUM CHLORIDE 20 MEQ/100 ML PREMIX) 100 ML ASDIR PRN IV Potassium Phosphate (POTASSIUM PHOSPHATE) 15 MM ASDIR PRN IV (CKD) Sodium Chloride (SODIUM CHLORIDE 0.9%) 100 ML Sodium Phosphate (SODIUM PHOSPHATE) 15 MMOL ASDIR PRN IV Sodium Chloride (SODIUM CHLORIDE 0.9%) 100 ML Sodium Phosphate (SODIUM PHOSPHATE) 20 MMOL ASDIR PRN IV Sodium Chloride (SODIUM CHLORIDE 0.9%) 100 ML Sodium Phosphate (SODIUM PHOSPHATE) 30 MMOL ASDIR PRN IV Sodium Chloride (SODIUM CHLORIDE 0.9%) 100 ML Sterile Water (WATER FOR INJECTION) 10 ML ASDIR PRN IV Dextrose/Water (DEXTROSE 10%) 125 ML ASDIR PRN IV (CKD) Dextrose/Water (DEXTROSE 10%) 250 ML ASDIR PRN IV (CKD) Dextrose/Water (DEXTROSE 10%) 125 ML ASDIR PRN IV (CKD) Dextrose/Water (DEXTROSE 10%) 250 ML ASDIR PRN IV (CKD) Glucagon (GLUCAGON) 1 MG ASDIR PRN IM Glucagon (GLUCAGON) 1 MG ASDIR PRN IM Insulin Human Lispro (Admelog) 0 AC HS SUBQ (DC) Physical Exam General appearance: chronically ill appearing Head/eyes: atraumatic, normocephalic, PERRL, EOMI, clear cornea, normal conjunctiva/sclera, normal fundi, normal eyelids/periorb. ENT: ENT: normal dentition, normal ear left, normal ear right, normal nose, normal pharynx, normal sinus Neck: full range of motion, non-tender, normal thyroid, supple/no meningismus, no bruit/NL carotids, no JVD, no lymphadenopathy, no masses or swelling Cardiovascular: regular rate rhythm Respiratory/chest: crackles, aerating well, symmetric expansion, no distress Abdomen: soft, non-tender, no distention, no guarding, no mass/organomegaly, no rebound Extremities: edema, moves all, normal capillary refill Musculoskeletal: full range of motion, normal inspection Neuro/KNOWLEDGE MANAGER: alert Skin: dry, intact Lymphatics: axilla normal, inguinal normal, neck normal, no lymphadenopathy Psychiatry: normal affect, normal judgment/insight, normal mood Results Findings/Data: Laboratory Tests 10/10/24426: [Embedded Image Not Available] Laboratory Tests 10/09 10/10 1616 0427 Chemistry Sodium (136 - 145 mmol/L) 135 L Potassium (3.5 - 5.1 mmol/L) 3.9 Chloride (98 - 107 mmol/L) 97 L Carbon Dioxide (20.0 - 31.0 mmol/L) 38.0 H Anion Gap (0 - 20) 4.2 BUN (9 - 23 mg/dL) 16 Creatinine (0.60 - 1.30 mg/dL) 0.69 Glomerular Filtr Rate (mL/min) 100 Glucose (74 - 106 mg/dL) 118 H POC Glucose (70 - 110 mg/dL) 130 H Calcium (8.7 - 10.4 mg/dL) 8.1 L Laboratory Tests 10/10 427 Hematology WBC (4.5 - 11.0 K/mm3) 7.2 RBC (4.40 - 5.90 M/mm3) 3.77 L Hgb (13.0 - 17.0 gm/dL) 11.7 L Hct (36.0 - 48.0 %) 35.7 L MCV (80.0 - 94.0 UM3) 94.7 H MCH (25.5 - 32.5 UUG) 31.0 MCHC (29.0 - 35.5 gm/dL) 32.8 RDW (11.5 - 15.0 %) 16.7 H Plt Count (150 - 400 K/mm3) 213 MPV (7.4 - 10.4 fl) 9.1 Neut % (Auto) (49.0 - 76.0 %) 65.8 Lymph % (Auto) (23.0 - 38.0 %) 16.6 L [place] % (Auto) (1.0 - 10.0 %) 10.3 H Eos % (Auto) (1.0 - 5.0 %) 3.1 Baso % (Auto) (0.0 - 1.0 %) 1.0 Neut # (Auto) (2.4 - 6.3 K/mm3) 4.7 Lymph # (Auto) (1.2 - 4.0 K/mm3) 1.2 [place] # (Auto) (0.0 - 0.6 K/mm3) 0.7 H Eos # (Auto) (0.0 - 0.7 K/MM3) 0.2 Baso # (Auto) (0.0 - 0.2 K/mm3) 0.1 Absolute Nucleated RBC (0.00 - 0.01 X10 3uL) 0.00 Immature Gran % (0.0 - 0.4 %) 3.2 H Nucleated RBC % (0.0 - 0.1 %) 0.0 Immature Gran # (0.00 - 0.07 x10 3/uL) 0.23 H Radiology data: Recent Impressions: SPECIAL PROCEDURES - SP PARACENTESIS W IMAGE 10/10 1216 Report Impression - Status: SIGNED Entered: 10/10/2024 9454 IMPRESSION: Technically successful ultrasound-guided diagnostic and therapeutic paracentesis. Impression By: Magen Hernández M.D. Results: labs reviewed, vital signs reviewed, x-ray personally reviewed, current med profile rev'd Diagnosis, Assessment Plan Free Text A P: 1. Sepsis Suspicious given tachycardia and reported blood culture positive Empiric antibiotics Etiology is unclear -> possibly aspiration pneumonia? better 2. Cirrhosis Decompensated GI following Ammonia elevated Lactulose s/p paracentesis 10/03 with removal of 5.6 L plan for repeat paracentesis today 3. Pleural effusion Possible hepatic hydrothorax? Repeat chest x-ray Follow symptoms 4. Hypoxemia Wean oxygen as tolerated 5. Altered mental status/ethanol abuse Hepatic encephalopathy lactulose improving ammonia CIWA protocol off Librium 6. Pulmonary infiltrates likely aspiration pneumonia abx cont nebs and Mucinex s/p bronchoscopy 10/06. Follow cultures. Continue diuresis as tolerated at 1358 RPT #:[id number] END OF REPORT [facility] 2024-10-10 11:29:00 [facility] ([facility] Gastroenterology Progress Note REPORT#:[id number] REPORT STATUS: Signed REPORT INITIALIZATION DATE:10/10/24 TIME: 1128 PATIENT: ABAD HARRINGTON UNIT #: [id number] ROOM/BED: [place] [address] : 55 AGE: 69 SEX: M ATTEND: Luisa Vincent MD ADM AUTHOR: Maria Luz Veloz MD REPT SERVICE DT/TIME: 10/10/24 1129 * ALL edits or amendments must be made on the electronic/computer document * Subjective Chief complaint: more awake and alter but sill confused Review of Systems All systems rev neg: except as marked Objective General VS/I O: Last Documented: Result Date Time Pulse Ox 94 10/10 0847 O2 Delivery Nasal cannula 10/10 0847 O2 Flow Rate 3 10/10 0847 Temp 98.1 10/10 0847 B/P 123/58 10/09 1600 B/P Mean 79 10/09 1600 Pulse 96 10/09 1600 Resp 18 10/09 1600 24 hour I O ending at 0700: 10/10 0700 10/09 1900 Intake Total 500 Output Total 800 Balance -300 Intake, Oral 500 Output, Urine 800 PATIENT WEIGHT: Weight (lb): 271 Weight (oz): 6.22 Weight (kg): 123.100 Physical Exam General appearance: alert, awake HEENT: anicteric, atraumatic, normocephalic Neck: full range of motion, non-tender, supple/no meningismus Cardiovascular: normal S1/S2, regular rate rhythm Respiratory: decreased breath sounds, symmetric expansion Abdomen: ascites, distended, normal bowel sounds Extremities: moves all Skin: dry, intact Diagnosis, Assessment Plan Free Text A P: 1. Cirrhosis of liver w/ascites will order hep panel, and INR - paracentesis - lactulose, lasix 2. Hepatic Encephalopathy II - ammonia 43 - lactulose 3. Pneumonia - pulmonary consulted 10/03 - low MELDNA score, HCV Ab positive, will need outpatient work for HCV 10/04 - increase lactulose to q2 hr till he wakes up Grade I-II hepatic encephalopathy 10/05 - still confused, stop librium, will use Ativan. decrease lactulose to q8hr sinc ammonia <40 its possible AMS from chronic abuse of ETOH - withrawl vs wernicke's 10/06 more awake today, no gi bleeding, resting 10/07 continue with lactulose, rectal tube in place on lasix 10/08-HE I to II, cont lactulose 10/09-Having 2 BMs per day. Continues confused. -Await paracentesis 10/10 continue with supportive care and paracentesis From GI standpoint we will continue to monitor the patient's progress at 1130 RPT #:[id number] END OF REPORT [facility] 2024-10-10 09:17:00 [facility] ([facility] Hospitalist Progress Note REPORT#:[id number] REPORT STATUS: Signed REPORT INITIALIZATION DATE:10/10/24 TIME: 916 PATIENT: ABAD HARRINGTON UNIT #: [id number] ROOM/BED: [place] [address] : 55 AGE: 69 SEX: M ATTEND: Luisa Vincent MD ADM AUTHOR: Thea Clark MD R1 REPT SERVICE DT/TIME: 10/10/24 0917 * ALL edits or amendments must be made on the electronic/computer document * Subjective Chief complaint: continues to improve good uop no distress 14 point ROS negative unless stated Review of Systems Skin: Reports: bruising, contusion, diaphoresis, ecchymosis, itching, swelling. Eyes: Reports: eye pain. ENT: Denies: earache, nasal congestion, sinus problem. Respiratory: Reports: pleuritic pain, SOB, wheezing. Cardiovascular: Reports: CORTEZ (dyspnea on exertion). Denies: chest pain, palpitations. GI: Denies: constipation, diarrhea. : Reports: hematuria, other. Musculoskeletal: Reports: joint pain, joint swelling, lumbar pain, neck pain. Neuro: Reports: gait problem. Denies: bladder dysfunction, bowel dysfunction, lightheaded. Psych: Denies: agitation, anxiety. All systems rev neg: except as noted Free Text ROS Notes Free Text ROS Notes: AMS Objective General VS/I O: Vital Signs: Date Time Temp Pulse Resp B/P B/P Pulse O2 O2 Flow FiO2 Mean Ox Delivery Rate 10/10 0847 36.7 94 Nasal 3 cannula 10/10 0749 98 Nasal 4 cannula 10/10 0725 86 Nasal 4 cannula 10/09 2320 86 Room air 10/09 2000 36.7 10/09 1940 94 Nasal 3 cannula 10/09 1600 37.0 96 18 123/58 79 92 Nasal 2 cannula 10/09 1600 96 18 123/58 84 92 10/09 1145 36.6 91 16 110/72 84 96 Nasal 2 cannula 10/09 1100 91 16 110/72 86 96 10/09 1000 86 15 112/67 84 95 24 hour I O ending at 0700: 10/10 0700 10/09 1900 Intake Total 500 Output Total 800 Balance -300 Intake, Oral 500 Output, Urine 800 PATIENT WEIGHT: Weight (lb): 271 Weight (oz): 6.22 Weight (kg): 123.100 Medications: Active Meds + DC'd Last 24 Hrs Furosemide (LASIX) 40 MG DAILY PO Spironolactone (ALDACTONE) 25 MG BID PO Lactulose (LACTULOSE) 20 GM BID 9A 5P PO Enoxaparin Sodium (LOVENOX) 40 MG Q12H SUBQ Fentanyl Citrate (SUBLIMAZE) 100 MCG ASDIR IV (CKD) Midazolam HCl (VERSED) 5 MG ASDIR IV (CKD) Thiamine HCl (THIAMINE HCL) 100 MG DAILY FEED-TUBE Albuterol/Ipratropium (IPRATR-ALBUTEROL 0.5-3 MG/3 ML) 3 ML RTQ6H NEB Guaifenesin (MUCINEX ER) 600 MG BID PO Sodium Chloride (SODIUM CHLORIDE) 10 ML BID IV Sodium Chloride (SODIUM CHLORIDE) 10 ML ASDIR PRN IV Albumin Human (ALBUMIN HUMAN) 400 ML ONCE ONE IV Dexmedetomidine HCl (PRECEDEX) 400 MCG Q24H IV Sodium Chloride (SODIUM CHLORIDE 0.9%) 96 ML Folic Acid (FOLIC ACID) 1 MG DAILY PO Multivitamins Therapeutic (THERAGRAN) 1 TAB DAILY PO Calcium Gluconate (Calcium Gluconate 1 GM/NS 50 mL (B2)) 50 ML ASDIR PRN IV Calcium Gluconate (Calcium Gluconate 1 GM/NS 50 mL (B2)) 50 ML ASDIR PRN IV Lorazepam (ATIVAN) 1 MG Q4H PRN PRN IV Magnesium Sulfate (MAGNESIUM SULF 2 GM/SWI 50 ML) 50 ML ASDIR PRN IV Potassium Chloride (POTASSIUM CHLORIDE 20 MEQ/100 ML PREMIX) 100 ML ASDIR PRN IV Potassium Chloride (POTASSIUM CHLORIDE 20 MEQ/100 ML PREMIX) 100 ML ASDIR PRN IV Potassium Chloride (POTASSIUM CHLORIDE 20 MEQ/100 ML PREMIX) 100 ML ASDIR PRN IV Potassium Chloride (POTASSIUM CHLORIDE 20 MEQ/100 ML PREMIX) 100 ML ASDIR PRN IV Potassium Phosphate (POTASSIUM PHOSPHATE) 15 MM ASDIR PRN IV (CKD) Sodium Chloride (SODIUM CHLORIDE 0.9%) 100 ML Sodium Phosphate (SODIUM PHOSPHATE) 15 MMOL ASDIR PRN IV Sodium Chloride (SODIUM CHLORIDE 0.9%) 100 ML Sodium Phosphate (SODIUM PHOSPHATE) 20 MMOL ASDIR PRN IV Sodium Chloride (SODIUM CHLORIDE 0.9%) 100 ML Sodium Phosphate (SODIUM PHOSPHATE) 30 MMOL ASDIR PRN IV Sodium Chloride (SODIUM CHLORIDE 0.9%) 100 ML Sterile Water (WATER FOR INJECTION) 10 ML ASDIR PRN IV Dextrose/Water (DEXTROSE 10%) 125 ML ASDIR PRN IV (CKD) Dextrose/Water (DEXTROSE 10%) 250 ML ASDIR PRN IV (CKD) Dextrose/Water (DEXTROSE 10%) 125 ML ASDIR PRN IV (CKD) Dextrose/Water (DEXTROSE 10%) 250 ML ASDIR PRN IV (CKD) Glucagon (GLUCAGON) 1 MG ASDIR PRN IM Glucagon (GLUCAGON) 1 MG ASDIR PRN IM Insulin Human Lispro (Admelog) 0 AC HS SUBQ Dietitian nutrition assessment The data set between the solid lines has been imported from the dietitian's assessment. BMI Calculated: 38.9 Nutrition related diagnosis: Nutrition diagnosis details: Nutrition problem: Nutrition etiology: Nutrition signs and symptoms: Nutrition prescription: Dietitian name: Assessment completed: Physical Exam General appearance: alert, awake, oriented ENT: moist mucosal membranes Cardiovascular: normal capillary refill Respiratory: aerating well Abdomen: tenderness Free Text Obj Notes Free Text Obj Notes: PHYSICAL EXAMINATION General appearance: Arousable AMS 5 L nasal cannula Head/Eyes: atraumatic, normocephalic, PERRL, EOMI ENT: normal ear left, normal ear right, normal nose, normal pharynx Neck: full range of motion, supple/no meningismus Cardiovascular: normal S1/S2, regular rate rhythm Respiratory/chest: Hypoxia decreased breath sounds bilaterally Abdomen: soft, non-tender, normal bowel sounds Genitourinary: deferred Extremities: Bilateral leg edema Musculoskeletal: full range of motion, normal inspection Neuro/KNOWLEDGE MANAGER alert, oriented X 2, CNII-XII intact Skin: Lower extremity chronic changes Psychiatry: AMS Diagnosis, Assessment Plan Free Text DxA P Notes Free text DxA P notes: Acute hypoxic respiratory failure - Nasal cannula oxygen 3L - Pulmonary consult Decompensated cirrhosis of liver with anasarca and acute liver failure - hepatic encephalopathy - IV diuresis- Furosemide/ Paracentesus/ Lactulose - Hep pannel- HCV ab positive, will need outpatient work for HCV - Monitor electrolytes and labs - GI consult Pneumonia - S/p Ceftriaxone - Follow cultures- Negative Altered mental status/ethanol abuse Hepatic encephalopathy - lactulose- 2 BM - improving ammonia - CIWA protocol - off Librium Hypocalcemia - Replace - Recheck in a.m. - Nephrology consultation Urinary obstruction - ornelas placed by Urologist - Hematuria present Diabetes mellitus type 2 Sliding scale insulin- D'cd 12. Discussed with Dr. Tamez Monitor closely Discussed with charge nurse DVT prophylaxis with Lovenox at 1148 at 1411 [facility] #:[id number] END OF REPORT [facility] 2024-10-09 18:43:00 [facility] ([facility] Gastroenterology Progress Note REPORT#:[id number] REPORT STATUS: Signed REPORT INITIALIZATION DATE:10/09/24 TIME: 1842 PATIENT: ABAD HARRINGTON UNIT #: [id number] ROOM/BED: [place] [address] : 55 AGE: 69 SEX: M ATTEND: Luisa Vincent MD ADM AUTHOR: Suzy Ramirez SEARCH DEVELOPER REPT SERVICE DT/TIME: 10/09/241842 * ALL edits or amendments must be made on the electronic/computer document * Suzy Ramirez 10/09/241842: Subjective Chief complaint: confused Review of Systems Unable to obtain due to: patient mentation Objective General VS/I O: Last Documented: Result Date Time Pulse Ox 92 10/09 1600 B/P 123/58 10/09 1600 B/P Mean 79 10/09 1600 O2 Delivery Nasal cannula 10/09 1600 O2 Flow Rate 2 10/09 1600 Temp 37.0 10/09 1600 Pulse 96 10/09 1600 Resp 18 10/09 1600 24 hour I O ending at 0700: 10/09 0700 10/08 1900 Intake Total 750 Output Total 1000 Balance -250 Intake, Oral 750 Output, Urine 1000 Patient 113.852 kg Weight PATIENT WEIGHT: Weight (lb): 251 Weight (oz): 5.23 Weight (kg): 113.852 Medications: Active Meds + DC'd Last 24 Hrs Furosemide (LASIX) 40 MG DAILY PO Spironolactone (ALDACTONE) 25 MG BID PO Cefdinir (OMNICEF) 300 MG BID PO (DC) Lactulose (LACTULOSE) 20 GM BID 9A 5P PO Enoxaparin Sodium (LOVENOX) 40 MG Q12H SUBQ Fentanyl Citrate (SUBLIMAZE) 100 MCG ASDIR IV (CKD) Midazolam HCl (VERSED) 5 MG ASDIR IV (CKD) Thiamine HCl (THIAMINE HCL) 100 MG DAILY FEED-TUBE Albuterol/Ipratropium (IPRATR-ALBUTEROL 0.5-3 MG/3 ML) 3 ML RTQ6H NEB Guaifenesin (MUCINEX ER) 600 MG BID PO Sodium Chloride (SODIUM CHLORIDE) 10 ML BID IV Sodium Chloride (SODIUM CHLORIDE) 10 ML ASDIR PRN IV Albumin Human (ALBUMIN HUMAN) 400 ML ONCE ONE IV Dexmedetomidine HCl (PRECEDEX) 400 MCG Q24H IV Sodium Chloride (SODIUM CHLORIDE 0.9%) 96 ML Folic Acid (FOLIC ACID) 1 MG DAILY PO Multivitamins Therapeutic (THERAGRAN) 1 TAB DAILY PO Calcium Gluconate (Calcium Gluconate 1 GM/NS 50 mL (B2)) 50 ML ASDIR PRN IV Calcium Gluconate (Calcium Gluconate 1 GM/NS 50 mL (B2)) 50 ML ASDIR PRN IV Lorazepam (ATIVAN) 1 MG Q4H PRN PRN IV Magnesium Sulfate (MAGNESIUM SULF 2 GM/SWI 50 ML) 50 ML ASDIR PRN IV Potassium Chloride (POTASSIUM CHLORIDE 20 MEQ/100 ML PREMIX) 100 ML ASDIR PRN IV Potassium Chloride (POTASSIUM CHLORIDE 20 MEQ/100 ML PREMIX) 100 ML ASDIR PRN IV Potassium Chloride (POTASSIUM CHLORIDE 20 MEQ/100 ML PREMIX) 100 ML ASDIR PRN IV Potassium Chloride (POTASSIUM CHLORIDE 20 MEQ/100 ML PREMIX) 100 ML ASDIR PRN IV Potassium Phosphate (POTASSIUM PHOSPHATE) 15 MM ASDIR PRN IV (CKD) Sodium Chloride (SODIUM CHLORIDE 0.9%) 100 ML Sodium Phosphate (SODIUM PHOSPHATE) 15 MMOL ASDIR PRN IV Sodium Chloride (SODIUM CHLORIDE 0.9%) 100 ML Sodium Phosphate (SODIUM PHOSPHATE) 20 MMOL ASDIR PRN IV Sodium Chloride (SODIUM CHLORIDE 0.9%) 100 ML Sodium Phosphate (SODIUM PHOSPHATE) 30 MMOL ASDIR PRN IV Sodium Chloride (SODIUM CHLORIDE 0.9%) 100 ML Sterile Water (WATER FOR INJECTION) 10 ML ASDIR PRN IV Dextrose/Water (DEXTROSE 10%) 125 ML ASDIR PRN IV (CKD) Dextrose/Water (DEXTROSE 10%) 250 ML ASDIR PRN IV (CKD) Dextrose/Water (DEXTROSE 10%) 125 ML ASDIR PRN IV (CKD) Dextrose/Water (DEXTROSE 10%) 250 ML ASDIR PRN IV (CKD) Glucagon (GLUCAGON) 1 MG ASDIR PRN IM Glucagon (GLUCAGON) 1 MG ASDIR PRN IM Insulin Human Lispro (Admelog) 0 AC HS SUBQ Physical Exam General appearance: confused, awake HEENT: anicteric, atraumatic, normocephalic Neck: full range of motion, non-tender, supple/no meningismus Cardiovascular: normal S1/S2, regular rate rhythm Respiratory: decreased breath sounds, symmetric expansion Abdomen: ascites, distended, normal bowel sounds Extremities: moves all Skin: dry, intact Results Findings/Data: Laboratory Tests 10/09 10/09 1616 1124 Chemistry POC Glucose (70 - 110 mg/dL) 130 H 104 Diagnosis, Assessment Plan Free Text A P: 1. Cirrhosis of liver w/ascites will order hep panel, and INR - paracentesis - lactulose, lasix 2. Hepatic Encephalopathy II - ammonia 43 - lactulose 3. Pneumonia - pulmonary consulted 10/03 - low MELDNA score, HCV Ab positive, will need outpatient work for HCV 10/04 - increase lactulose to q2 hr till he wakes up Grade I-II hepatic encephalopathy 10/05 - still confused, stop librium, will use Ativan. decrease lactulose to q8hr sinc ammonia <40 its possible AMS from chronic abuse of ETOH - withrawl vs wernicke's 10/06 more awake today, no gi bleeding, resting 10/07 continue with lactulose, rectal tube in place on lasix 10/08-HE I to II, cont lactulose 10/09-Having 2 BMs per day. Continues confused. -Await paracentesis From GI standpoint we will continue to monitor the patient's progress Maria Luz Veloz 11/16/24 1026: Diagnosis, Assessment Plan Free Text A P: Chart reviewed, along with exam and interview with TIANA, I agree with the plan as written above at 1844 at 1027 RPT #:[id number] END OF REPORT [facility] 2024-10-09 13:54:00 [facility] ([facility] Pulmonology Progress Note REPORT#:[id number] REPORT STATUS: Signed REPORT INITIALIZATION DATE:10/09/24 TIME: 1354 PATIENT: ABAD HARRINGTON UNIT #: [id number] ROOM/BED: [id number] : 55 AGE: 69 SEX: M ATTEND: Luisa Vincent MD ADM AUTHOR: Fawad Jacobo MD REPT SERVICE DT/TIME: 10/09/24 1354 * ALL edits or amendments must be made on the electronic/computer document * Subjective Chief complaint: AMS. Patient reports: Yes: resting comfortably. No: congestion, cough, shortness of breath. Comments: He is awake and alert. Working with PT. He is on nasal cannula oxygen. ROS negative for f/c, n/v. Objective General VS/I O: Last Documented: Result Date Time Pulse Ox 96 10/09 1145 B/P 110/72 10/09 1145 B/P Mean 84 10/09 1145 O2 Delivery Nasal cannula 10/09 114 O2 Flow Rate 2 10/09 114 Temp 97.8 10/09 1145 Pulse 91 10/09 1145 Resp 16 10/09 1145 24 hour I O ending at 0700: 10/08 1900 10/09 0700 Intake Total 750 Output Total 1000 Balance -250 Intake, Oral 750 Output, Urine 1000 Patient 251 lb Weight PATIENT WEIGHT: Weight (lb): 251 Weight (oz): 5.23 Weight (kg): 113.852 Medications: Active Meds + DC'd Last 24 Hrs Furosemide (LASIX) 40 MG DAILY PO Spironolactone (ALDACTONE) 25 MG BID PO Cefdinir (OMNICEF) 300 MG BID PO (DC) Lactulose (LACTULOSE) 20 GM BID 9A 5P PO Enoxaparin Sodium (LOVENOX) 40 MG Q12H SUBQ Fentanyl Citrate (SUBLIMAZE) 100 MCG ASDIR IV (CKD) Midazolam HCl (VERSED) 5 MG ASDIR IV (CKD) Thiamine HCl (THIAMINE HCL) 100 MG DAILY FEED-TUBE Albuterol/Ipratropium (IPRATR-ALBUTEROL 0.5-3 MG/3 ML) 3 ML RTQ6H NEB Guaifenesin (MUCINEX ER) 600 MG BID PO Sodium Chloride (SODIUM CHLORIDE) 10 ML BID IV Sodium Chloride (SODIUM CHLORIDE) 10 ML ASDIR PRN IV Albumin Human (ALBUMIN HUMAN) 400 ML ONCE ONE IV Dexmedetomidine HCl (PRECEDEX) 400 MCG Q24H IV Sodium Chloride (SODIUM CHLORIDE 0.9%) 96 ML Folic Acid (FOLIC ACID) 1 MG DAILY PO Multivitamins Therapeutic (THERAGRAN) 1 TAB DAILY PO Calcium Gluconate (Calcium Gluconate 1 GM/NS 50 mL (B2)) 50 ML ASDIR PRN IV Calcium Gluconate (Calcium Gluconate 1 GM/NS 50 mL (B2)) 50 ML ASDIR PRN IV Lorazepam (ATIVAN) 1 MG Q4H PRN PRN IV Magnesium Sulfate (MAGNESIUM SULF 2 GM/SWI 50 ML) 50 ML ASDIR PRN IV Potassium Chloride (POTASSIUM CHLORIDE 20 MEQ/100 ML PREMIX) 100 ML ASDIR PRN IV Potassium Chloride (POTASSIUM CHLORIDE 20 MEQ/100 ML PREMIX) 100 ML ASDIR PRN IV Potassium Chloride (POTASSIUM CHLORIDE 20 MEQ/100 ML PREMIX) 100 ML ASDIR PRN IV Potassium Chloride (POTASSIUM CHLORIDE 20 MEQ/100 ML PREMIX) 100 ML ASDIR PRN IV Potassium Phosphate (POTASSIUM PHOSPHATE) 15 MM ASDIR PRN IV (CKD) Sodium Chloride (SODIUM CHLORIDE 0.9%) 100 ML Sodium Phosphate (SODIUM PHOSPHATE) 15 MMOL ASDIR PRN IV Sodium Chloride (SODIUM CHLORIDE 0.9%) 100 ML Sodium Phosphate (SODIUM PHOSPHATE) 20 MMOL ASDIR PRN IV Sodium Chloride (SODIUM CHLORIDE 0.9%) 100 ML Sodium Phosphate (SODIUM PHOSPHATE) 30 MMOL ASDIR PRN IV Sodium Chloride (SODIUM CHLORIDE 0.9%) 100 ML Sterile Water (WATER FOR INJECTION) 10 ML ASDIR PRN IV Dextrose/Water (DEXTROSE 10%) 125 ML ASDIR PRN IV (CKD) Dextrose/Water (DEXTROSE 10%) 250 ML ASDIR PRN IV (CKD) Dextrose/Water (DEXTROSE 10%) 125 ML ASDIR PRN IV (CKD) Dextrose/Water (DEXTROSE 10%) 250 ML ASDIR PRN IV (CKD) Glucagon (GLUCAGON) 1 MG ASDIR PRN IM Glucagon (GLUCAGON) 1 MG ASDIR PRN IM Insulin Human Lispro (Admelog) 0 AC HS SUBQ Dietitian nutrition assessment The data set between the solid lines has been imported from the dietitian's assessment. BMI Calculated: 36.0 Nutrition related diagnosis: Nutrition diagnosis details: Nutrition problem: Nutrition etiology: Nutrition signs and symptoms: Nutrition prescription: Dietitian name: Assessment completed: Physical Exam General appearance: respiratory support, alert, awake, no acute distress, pleasant, conversational Head/eyes: atraumatic, normocephalic, PERRL, EOMI, clear cornea, normal conjunctiva/sclera, normal fundi, normal eyelids/periorb. ENT: ENT: normal dentition, normal ear left, normal ear right, normal nose, normal pharynx, normal sinus Neck: full range of motion, non-tender, normal thyroid, supple/no meningismus, no bruit/NL carotids, no JVD, no lymphadenopathy, no masses or swelling Cardiovascular: regular rate rhythm Respiratory/chest: crackles, aerating well, symmetric expansion, no distress Abdomen: soft, non-tender, no distention, no guarding, no mass/organomegaly, no rebound Extremities: edema, moves all, normal capillary refill Musculoskeletal: full range of motion, normal inspection Neuro/KNOWLEDGE MANAGER: alert Skin: dry, intact Lymphatics: axilla normal, inguinal normal, neck normal, no lymphadenopathy Psychiatry: normal affect, normal judgment/insight, normal mood Results Findings/Data: Laboratory Tests 10/08 10/09 1601 1124 Chemistry POC Glucose (70 - 110 mg/dL) 136 H 104 Diagnosis, Assessment Plan Free Text A P: 1. Sepsis Suspicious given tachycardia and reported blood culture positive Empiric antibiotics Etiology is unclear -> possibly aspiration pneumonia? better 2. Cirrhosis Decompensated GI following Ammonia elevated Lactulose s/p paracentesis 10/03 with removal of 5.6 L plan for repeat paracentesis 10/10 3. Pleural effusion Possible hepatic hydrothorax? Repeat chest x-ray Follow symptoms 4. Hypoxemia Wean oxygen as tolerated 5. Altered mental status/ethanol abuse Hepatic encephalopathy lactulose improving ammonia CIWA protocol off Librium 6. Pulmonary infiltrates likely aspiration pneumonia abx cont nebs and Mucinex s/p bronchoscopy 10/06. Follow cultures. Excellent diuresis. Weight down to 250 pounds today (down from 315 pounds at admission). at 1356 RPT #:[id number] END OF REPORT [facility] 2024-10-09 09:32:00 [facility] ([facility]) Hospitalist Progress Note REPORT#:[id number] REPORT STATUS: Signed REPORT INITIALIZATION DATE:10/09/24 TIME: 931 PATIENT: ABAD HARRINGTON UNIT #: [id number] ROOM/BED: [place] [id number] : 55 AGE: 69 SEX: M ATTEND: Luisa Vincent MD ADM AUTHOR: Ana María Velasquez MD REPT SERVICE DT/TIME: 10/09/24 0932 * ALL edits or amendments must be made on the electronic/computer document * Subjective Chief complaint: continues to improve good uop no distress 14 point ROS negative unless stated Review of Systems Free Text ROS Notes Free Text ROS Notes: AMS Objective General VS/I O: Vital Signs: Date Time Temp Pulse Resp B/P B/P Pulse O2 O2 Flow FiO2 Mean Ox Delivery Rate 10/09 0900 90 14 125/66 88 93 10/09 0811 93 Nasal 3 cannula 10/09 0800 Nasal 2 cannula 10/09 0800 36.8 91 18 119/69 85 93 Nasal 2 cannula 10/09 0800 91 18 119/69 89 93 10/09 0700 89 14 117/62 83 95 10/09 0500 90 15 135/69 94 75 10/09 0400 91 15 127/70 89 10/09 0300 92 15 127/65 89 98 10/09 0200 97 28 128/62 88 98 10/09 0100 97 14 127/59 84 100 10/09 0000 96 17 128/62 88 100 10/08 2300 96 15 127/60 86 90 10/08 2200 96 19 125/60 86 96 10/08 2100 97 16 121/58 82 96 10/08 2029 98 16 95 10/08 2000 37.0 10/08 2000 101 21 124/66 89 95 10/08 1930 94 Nasal 5 cannula 10/08 1900 96 21 110/56 79 92 10/08 1600 36.9 100 28 110/62 78 95 Nasal 2 cannula 10/08 1600 100 28 110/62 80 95 10/08 1500 101 20 116/61 82 91 10/08 1400 101 20 114/58 80 92 10/08 1300 96 19 118/64 85 93 10/08 1200 37.0 96 20 118/64 82 96 Nasal 2 cannula 10/08 1200 96 20 118/64 86 96 10/08 1100 93 16 122/63 85 95 10/08 1000 90 16 134/62 89 98 24 hour I O ending at 0700: 10/09 0700 10/08 1900 Intake Total 750 Output Total 1000 Balance -250 Intake, Oral 750 Output, Urine 1000 Patient 113.852 kg Weight PATIENT WEIGHT: Weight (lb): 251 Weight (oz): 5.23 Weight (kg): 113.852 Medications: Active Meds + DC'd Last 24 Hrs Furosemide (LASIX) 40 MG DAILY PO Spironolactone (ALDACTONE) 25 MG BID PO Cefdinir (OMNICEF) 300 MG BID PO (DC) Lactulose (LACTULOSE) 20 GM BID 9A 5P PO Enoxaparin Sodium (LOVENOX) 40 MG Q12H SUBQ Fentanyl Citrate (SUBLIMAZE) 100 MCG ASDIR IV (CKD) Midazolam HCl (VERSED) 5 MG ASDIR IV (CKD) Thiamine HCl (THIAMINE HCL) 100 MG DAILY FEED-TUBE Albuterol/Ipratropium (IPRATR-ALBUTEROL 0.5-3 MG/3 ML) 3 ML RTQ6H NEB Guaifenesin (MUCINEX ER) 600 MG BID PO Sodium Chloride (SODIUM CHLORIDE) 10 ML BID IV Sodium Chloride (SODIUM CHLORIDE) 10 ML ASDIR PRN IV Albumin Human (ALBUMIN HUMAN) 400 ML ONCE ONE IV Dexmedetomidine HCl (PRECEDEX) 400 MCG Q24H IV Sodium Chloride (SODIUM CHLORIDE 0.9%) 96 ML Folic Acid (FOLIC ACID) 1 MG DAILY PO Multivitamins Therapeutic (THERAGRAN) 1 TAB DAILY PO Calcium Gluconate (Calcium Gluconate 1 GM/NS 50 mL (B2)) 50 ML ASDIR PRN IV Calcium Gluconate (Calcium Gluconate 1 GM/NS 50 mL (B2)) 50 ML ASDIR PRN IV Lorazepam (ATIVAN) 1 MG Q4H PRN PRN IV Magnesium Sulfate (MAGNESIUM SULF 2 GM/SWI 50 ML) 50 ML ASDIR PRN IV Potassium Chloride (POTASSIUM CHLORIDE 20 MEQ/100 ML PREMIX) 100 ML ASDIR PRN IV Potassium Chloride (POTASSIUM CHLORIDE 20 MEQ/100 ML PREMIX) 100 ML ASDIR PRN IV Potassium Chloride (POTASSIUM CHLORIDE 20 MEQ/100 ML PREMIX) 100 ML ASDIR PRN IV Potassium Chloride (POTASSIUM CHLORIDE 20 MEQ/100 ML PREMIX) 100 ML ASDIR PRN IV Potassium Phosphate (POTASSIUM PHOSPHATE) 15 MM ASDIR PRN IV (CKD) Sodium Chloride (SODIUM CHLORIDE 0.9%) 100 ML Sodium Phosphate (SODIUM PHOSPHATE) 15 MMOL ASDIR PRN IV Sodium Chloride (SODIUM CHLORIDE 0.9%) 100 ML Sodium Phosphate (SODIUM PHOSPHATE) 20 MMOL ASDIR PRN IV Sodium Chloride (SODIUM CHLORIDE 0.9%) 100 ML Sodium Phosphate (SODIUM PHOSPHATE) 30 MMOL ASDIR PRN IV Sodium Chloride (SODIUM CHLORIDE 0.9%) 100 ML Sterile Water (WATER FOR INJECTION) 10 ML ASDIR PRN IV Dextrose/Water (DEXTROSE 10%) 125 ML ASDIR PRN IV (CKD) Dextrose/Water (DEXTROSE 10%) 250 ML ASDIR PRN IV (CKD) Dextrose/Water (DEXTROSE 10%) 125 ML ASDIR PRN IV (CKD) Dextrose/Water (DEXTROSE 10%) 250 ML ASDIR PRN IV (CKD) Furosemide (LASIX 40MG INJ) 40 MG BID 9A 5P IV (DC) Glucagon (GLUCAGON) 1 MG ASDIR PRN IM Glucagon (GLUCAGON) 1 MG ASDIR PRN IM Insulin Human Lispro (Admelog) 0 AC HS SUBQ Dietitian nutrition assessment The data set between the solid lines has been imported from the dietitian's assessment. BMI Calculated: 36.0 Nutrition related diagnosis: Nutrition diagnosis details: Nutrition problem: Nutrition etiology: Nutrition signs and symptoms: Nutrition prescription: Dietitian name: Assessment completed: Results Findings/Data: Laboratory Tests 10/08 1601 Chemistry POC Glucose (70 - 110 mg/dL) 136 H Free Text Obj Notes Free Text Obj Notes: PHYSICAL EXAMINATION General appearance: Arousable AMS 5 L nasal cannula Head/Eyes: atraumatic, normocephalic, PERRL, EOMI ENT: normal ear left, normal ear right, normal nose, normal pharynx Neck: full range of motion, supple/no meningismus Cardiovascular: normal S1/S2, regular rate rhythm Respiratory/chest: Hypoxia decreased breath sounds bilaterally Abdomen: soft, non-tender, normal bowel sounds Genitourinary: deferred Extremities: Bilateral leg edema Musculoskeletal: full range of motion, normal inspection Neuro/KNOWLEDGE MANAGER alert, oriented X 2, CNII-XII intact Skin: Lower extremity chronic changes Psychiatry: AMS Diagnosis, Assessment Plan Free Text DxA P Notes Free text DxA P notes: Acute hypoxic respiratory failure Nasal cannula oxygen Pulmonary consult Decompensated cirrhosis of liver with anasarca and acute liver failure hepatic encephalopathy IV diuresis GI consult Monitor electrolytes and labs Pneumonia -----IV antibiotics Follow cultures hypocalcemia Replace Recheck in a.m. Nephrology consultation Diabetes mellitus type 2 Sliding scale insulin Discussed with Dr. Tamez Monitor closely Discussed with charge nurse 10/02/2024 Acute hypoxic respiratory failure----ICU monitoring, wean nasal cannula, pulmonology following Sepsis with pneumonia on IV antibiotics Bacteremia, blood cultures from other hospital reportedly positive for strep, blood cultures here pending Decompensated cirrhosis of liver with anasarca, GI consulted, on IV Lasix Hepatic encephalopathy on lactulose Alcoholism on CIWA protocol Diabetes mellitus type 2 Ornelas placed by urology 10/03 worsening pulmonary edema ciwa protocol no pain 10/04/2024 Acute hypoxic respiratory failure, 5 L nasal cannula 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 on IV Lasix, status post paracentesis October 03, 2024, 5.6 L removed, albumin given Hepatic encephalopathy on lactulose Alcoholism on CIWA protocol Bacteremia from other hospital, reportedly strep, blood cultures here negative, IV Rocephin Diabetes mellitus type 2 Ornelas placed by urology for phimosis Full code Lives at home with son Needing restraints Right PICC line placed Poor prognosis DVT prophylaxis with Lovenox 10/05/2024 Wean O2, continue IV Lasix, IV antibiotics for possible aspiration pneumonia, decrease lactulose, rectal tube in place, follow blood cultures PT when able 10/06 continue lactulose seen in ICU IV lasix monitor creatinine daily abx for aspiration cultures pending 10/08 much improved continue abx PT OT 10/09 PT OT continue diuresis wean o2 at 0933 RPT #:[id number] END OF REPORT [facility] 2024-10-08 13:38:00 [facility] ([facility] Pulmonology Progress Note REPORT#:[id number] REPORT STATUS: Signed REPORT INITIALIZATION DATE:10/08/24 TIME: 1337 PATIENT: ABAD HARRINGTON UNIT #: [id number] ROOM/BED: [place] [id number] : 55 AGE: 69 SEX: M ATTEND: Luisa Vincent MD ADM AUTHOR: Fawad Jacobo MD REPT SERVICE DT/TIME: 10/08/24 1338 * ALL edits or amendments must be made on the electronic/computer document * Subjective Chief complaint: AMS. Patient reports: Yes: feeling better, resting comfortably, tolerating diet. No: congestion, cough, shortness of breath. Comments: Progressively more alert. RN weaning nasal oxygen. He is in no distress, no new complaints. ROS negative for f/c, n/v. Objective General VS/I O: Last Documented: Result Date Time Pulse Ox 93 10/08 1300 B/P 118/64 10/08 1300 B/P Mean 85 10/08 1300 Pulse 96 10/08 1300 Resp 19 10/08 1300 O2 Delivery Nasal cannula 10/08 0800 O2 Flow Rate 3 10/08 0800 Temp 98.4 10/08 0800 24 hour I O ending at 0700: 10/07 1900 10/08 0700 Intake Total 340 Output Total 1320 670 Balance -1320 -330 Intake, Oral 340 Output, Stool 200 Output, Urine 1120 670 Patient 251 lb Weight Weight Bed scale Measurement Method PATIENT WEIGHT: Weight (lb): 251 Weight (oz): 5.23 Weight (kg): 114.000 Medications: Active Meds + DC'd Last 24 Hrs Cefdinir (OMNICEF) 300 MG BID PO Lactulose (LACTULOSE) 20 GM BID 9A 5P PO Enoxaparin Sodium (LOVENOX) 40 MG Q12H SUBQ Fentanyl Citrate (SUBLIMAZE) 100 MCG ASDIR IV (CKD) Midazolam HCl (VERSED) 5 MG ASDIR IV (CKD) Thiamine HCl (THIAMINE HCL) 100 MG DAILY FEED-TUBE Albuterol/Ipratropium (IPRATR-ALBUTEROL 0.5-3 MG/3 ML) 3 ML RTQ6H NEB Guaifenesin (MUCINEX ER) 600 MG BID PO Sodium Chloride (SODIUM CHLORIDE) 10 ML BID IV Sodium Chloride (SODIUM CHLORIDE) 10 ML ASDIR PRN IV Albumin Human (ALBUMIN HUMAN) 400 ML ONCE ONE IV Dexmedetomidine HCl (PRECEDEX) 400 MCG Q24H IV Sodium Chloride (SODIUM CHLORIDE 0.9%) 96 ML Folic Acid (FOLIC ACID) 1 MG DAILY PO Multivitamins Therapeutic (THERAGRAN) 1 TAB DAILY PO Calcium Gluconate (Calcium Gluconate 1 GM/NS 50 mL (B2)) 50 ML ASDIR PRN IV Calcium Gluconate (Calcium Gluconate 1 GM/NS 50 mL (B2)) 50 ML ASDIR PRN IV Lorazepam (ATIVAN) 1 MG Q4H PRN PRN IV Magnesium Sulfate (MAGNESIUM SULF 2 GM/SWI 50 ML) 50 ML ASDIR PRN IV Potassium Chloride (POTASSIUM CHLORIDE 20 MEQ/100 ML PREMIX) 100 ML ASDIR PRN IV Potassium Chloride (POTASSIUM CHLORIDE 20 MEQ/100 ML PREMIX) 100 ML ASDIR PRN IV Potassium Chloride (POTASSIUM CHLORIDE 20 MEQ/100 ML PREMIX) 100 ML ASDIR PRN IV Potassium Chloride (POTASSIUM CHLORIDE 20 MEQ/100 ML PREMIX) 100 ML ASDIR PRN IV Potassium Phosphate (POTASSIUM PHOSPHATE) 15 MM ASDIR PRN IV (CKD) Sodium Chloride (SODIUM CHLORIDE 0.9%) 100 ML Sodium Phosphate (SODIUM PHOSPHATE) 15 MMOL ASDIR PRN IV Sodium Chloride (SODIUM CHLORIDE 0.9%) 100 ML Sodium Phosphate (SODIUM PHOSPHATE) 20 MMOL ASDIR PRN IV Sodium Chloride (SODIUM CHLORIDE 0.9%) 100 ML Sodium Phosphate (SODIUM PHOSPHATE) 30 MMOL ASDIR PRN IV Sodium Chloride (SODIUM CHLORIDE 0.9%) 100 ML Sterile Water (WATER FOR INJECTION) 10 ML ASDIR PRN IV Dextrose/Water (DEXTROSE 10%) 125 ML ASDIR PRN IV (CKD) Dextrose/Water (DEXTROSE 10%) 250 ML ASDIR PRN IV (CKD) Dextrose/Water (DEXTROSE 10%) 125 ML ASDIR PRN IV (CKD) Dextrose/Water (DEXTROSE 10%) 250 ML ASDIR PRN IV (CKD) Furosemide (LASIX 40MG INJ) 40 MG BID 9A 5P IV Glucagon (GLUCAGON) 1 MG ASDIR PRN IM Glucagon (GLUCAGON) 1 MG ASDIR PRN IM Insulin Human Lispro (Admelog) 0 AC HS SUBQ Physical Exam General appearance: alert, awake Head/eyes: atraumatic, normocephalic, PERRL, EOMI, clear cornea, normal conjunctiva/sclera, normal fundi, normal eyelids/periorb. ENT: ENT: normal dentition, normal ear left, normal ear right, normal nose, normal pharynx, normal sinus Neck: full range of motion, non-tender, normal thyroid, supple/no meningismus, no bruit/NL carotids, no JVD, no lymphadenopathy, no masses or swelling Cardiovascular: regular rate rhythm Respiratory/chest: crackles, rhonchi, aerating well, symmetric expansion, no distress Abdomen: soft, non-tender, no distention, no guarding, no mass/organomegaly, no rebound Extremities: edema, moves all, normal capillary refill Musculoskeletal: full range of motion, normal inspection Neuro/KNOWLEDGE MANAGER: alert Skin: dry, intact Lymphatics: axilla normal, inguinal normal, neck normal, no lymphadenopathy Psychiatry: normal affect, normal judgment/insight, normal mood Results Findings/Data: Laboratory Tests 10/07 1620 Chemistry POC Glucose (70 - 110 mg/dL) 136 H Diagnosis, Assessment Plan Free Text A P: 1. Sepsis Suspicious given tachycardia and reported blood culture positive Empiric antibiotics Etiology is unclear -> possibly aspiration pneumonia? better 2. Cirrhosis Decompensated GI following Ammonia elevated Lactulose s/p paracentesis 10/03 with removal of 5.6 L 3. Pleural effusion Possible hepatic hydrothorax? Repeat chest x-ray Follow symptoms 4. Hypoxemia Wean oxygen as tolerated 5. Altered mental status/ethanol abuse Hepatic encephalopathy lactulose improving ammonia CIWA protocol off Librium 6. Pulmonary infiltrates likely aspiration pneumonia abx cont nebs and Mucinex s/p bronchoscopy 10/06. Follow cultures. Excellent diuresis. Weight down to 250 pounds today (down from 315 pounds at admission). at 1344 RPT #:[id number] END OF REPORT [facility] 2024-10-08 12:21:00 [facility] ([facility]) Gastroenterology Progress Note REPORT#:[id number] REPORT STATUS: Signed REPORT INITIALIZATION DATE:10/08/24 TIME: 1220 PATIENT: ABAD HARRINGTON UNIT #: [id number] ROOM/BED: [place] [id number] : 55 AGE: 69 SEX: M ATTEND: Luisa Vincent MD ADM AUTHOR: Suzy Ramirez SEARCH DEVELOPER REPT SERVICE DT/TIME: 10/08/24 1221 * ALL edits or amendments must be made on the electronic/computer document * Suzy Ramirez 10/08/24 1221: Subjective Chief complaint: confused Review of Systems Unable to obtain due to: patient mentation Objective General VS/I O: Last Documented: Result Date Time Pulse Ox 95 10/08 1100 B/P 122/63 10/08 1100 B/P Mean 85 10/08 1100 Pulse 93 10/08 1100 Resp 16 10/08 1100 O2 Delivery Nasal cannula 10/08 0800 O2 Flow Rate 3 10/08 0800 Temp 36.9 10/08 0800 24 hour I O ending at 0700: 10/08 0700 10/07 1900 Intake Total 340 Output Total 670 1320 Balance -330 -1320 Intake, Oral 340 Output, Stool 200 Output, Urine 670 1120 Patient 114 kg Weight Weight Bed scale Measurement Method PATIENT WEIGHT: Weight (lb): 251 Weight (oz): 5.23 Weight (kg): 114.000 Medications: Active Meds + DC'd Last 24 Hrs Cefdinir (OMNICEF) 300 MG BID PO Lactulose (LACTULOSE) 20 GM BID 9A 5P PO Enoxaparin Sodium (LOVENOX) 40 MG Q12H SUBQ Fentanyl Citrate (SUBLIMAZE) 100 MCG ASDIR IV (CKD) Midazolam HCl (VERSED) 5 MG ASDIR IV (CKD) Thiamine HCl (THIAMINE HCL) 100 MG DAILY FEED-TUBE Albuterol/Ipratropium (IPRATR-ALBUTEROL 0.5-3 MG/3 ML) 3 ML RTQ6H NEB Guaifenesin (MUCINEX ER) 600 MG BID PO Sodium Chloride (SODIUM CHLORIDE) 10 ML BID IV Sodium Chloride (SODIUM CHLORIDE) 10 ML ASDIR PRN IV Albumin Human (ALBUMIN HUMAN) 400 ML ONCE ONE IV Dexmedetomidine HCl (PRECEDEX) 400 MCG Q24H IV Sodium Chloride (SODIUM CHLORIDE 0.9%) 96 ML Folic Acid (FOLIC ACID) 1 MG DAILY PO Multivitamins Therapeutic (THERAGRAN) 1 TAB DAILY PO Calcium Gluconate (Calcium Gluconate 1 GM/NS 50 mL (B2)) 50 ML ASDIR PRN IV Calcium Gluconate (Calcium Gluconate 1 GM/NS 50 mL (B2)) 50 ML ASDIR PRN IV Lorazepam (ATIVAN) 1 MG Q4H PRN PRN IV Magnesium Sulfate (MAGNESIUM SULF 2 GM/SWI 50 ML) 50 ML ASDIR PRN IV Potassium Chloride (POTASSIUM CHLORIDE 20 MEQ/100 ML PREMIX) 100 ML ASDIR PRN IV Potassium Chloride (POTASSIUM CHLORIDE 20 MEQ/100 ML PREMIX) 100 ML ASDIR PRN IV Potassium Chloride (POTASSIUM CHLORIDE 20 MEQ/100 ML PREMIX) 100 ML ASDIR PRN IV Potassium Chloride (POTASSIUM CHLORIDE 20 MEQ/100 ML PREMIX) 100 ML ASDIR PRN IV Potassium Phosphate (POTASSIUM PHOSPHATE) 15 MM ASDIR PRN IV (CKD) Sodium Chloride (SODIUM CHLORIDE 0.9%) 100 ML Sodium Phosphate (SODIUM PHOSPHATE) 15 MMOL ASDIR PRN IV Sodium Chloride (SODIUM CHLORIDE 0.9%) 100 ML Sodium Phosphate (SODIUM PHOSPHATE) 20 MMOL ASDIR PRN IV Sodium Chloride (SODIUM CHLORIDE 0.9%) 100 ML Sodium Phosphate (SODIUM PHOSPHATE) 30 MMOL ASDIR PRN IV Sodium Chloride (SODIUM CHLORIDE 0.9%) 100 ML Sterile Water (WATER FOR INJECTION) 10 ML ASDIR PRN IV Ceftriaxone Sodium (cefTRIAXone 1,000 MG VIAL) 1,000 MG Q24H IV (DC) Sodium Chloride (SODIUM CHLORIDE 0.9% 10ML) 10 ML Dextrose/Water (DEXTROSE 10%) 125 ML ASDIR PRN IV (CKD) Dextrose/Water (DEXTROSE 10%) 250 ML ASDIR PRN IV (CKD) Dextrose/Water (DEXTROSE 10%) 125 ML ASDIR PRN IV (CKD) Dextrose/Water (DEXTROSE 10%) 250 ML ASDIR PRN IV (CKD) Furosemide (LASIX 40MG INJ) 40 MG BID 9A 5P IV Glucagon (GLUCAGON) 1 MG ASDIR PRN IM Glucagon (GLUCAGON) 1 MG ASDIR PRN IM Insulin Human Lispro (Admelog) 0 AC HS SUBQ Physical Exam General appearance: confused, awake HEENT: anicteric, atraumatic, normocephalic Neck: full range of motion, non-tender, supple/no meningismus Cardiovascular: normal S1/S2, regular rate rhythm Respiratory: decreased breath sounds, symmetric expansion Abdomen: ascites, distended, normal bowel sounds Extremities: moves all Skin: dry, intact Results Findings/Data: Laboratory Tests 10/07 1620 Chemistry POC Glucose (70 - 110 mg/dL) 136 H Diagnosis, Assessment Plan Free Text A P: 1. Cirrhosis of liver w/ascites will order hep panel, and INR - paracentesis - lactulose, lasix 2. Hepatic Encephalopathy II - ammonia 43 - lactulose 3. Pneumonia - pulmonary consulted 10/03 - low MELDNA score, HCV Ab positive, will need outpatient work for HCV 10/04 - increase lactulose to q2 hr till he wakes up Grade I-II hepatic encephalopathy 10/05 - still confused, stop librium, will use Ativan. decrease lactulose to q8hr sinc ammonia <40 its possible AMS from chronic abuse of ETOH - withrawl vs wernicke's 10/06 more awake today, no gi bleeding, resting 10/07 continue with lactulose, rectal tube in place on lasix 10/08-HE I to II, cont lactulose From GI standpoint we will continue to monitor the patient's progress Maria Luz Veloz 11/16/24 1026: Diagnosis, Assessment Plan Free Text A P: Chart reviewed, along with exam and interview with TIANA, I agree with the plan as written above at 1225 at 1027 RPT #:[id number] END OF REPORT [facility] 2024-10-08 10:11:00 [facility] ([facility] Hospitalist Progress Note REPORT#:[id number] REPORT STATUS: Signed REPORT INITIALIZATION DATE:10/08/24 TIME: 101 PATIENT: ABAD HARRINGTON UNIT #: [id number] ROOM/BED: [place] [id number] : 55 AGE: 69 SEX: M ATTEND: Luisa Vincent MD ADM AUTHOR: Ana María Velasquez MD REPT SERVICE DT/TIME: 10/08/24 1011 * ALL edits or amendments must be made on the electronic/computer document * Subjective Chief complaint: MUCH IMPROVED! eating breakfast baseline mentation seen in IMU no pain 14 point ROS negative unless stated Review of Systems Free Text ROS Notes Free Text ROS Notes: AMS Objective General VS/I O: Vital Signs: Date Time Temp Pulse Resp B/P B/P Pulse O2 O2 Flow FiO2 Mean Ox Delivery Rate 10/08 0613 93 Nasal 5 cannula 10/08 0600 91 17 122/65 87 97 10/08 0500 91 15 120/59 84 98 10/08 0400 94 16 123/67 89 100 10/08 0330 95 15 100 10/08 0300 94 14 116/55 79 100 10/08 0230 94 13 95 10/08 0200 95 15 113/60 81 100 10/08 0130 93 15 106/58 76 94 10/08 0100 95 15 121/61 84 100 10/08 0030 97 18 117/65 85 98 10/08 0000 96 18 120/63 86 98 10/07 2357 37.1 Nasal 6 cannula 10/07 2330 97 19 106/59 79 95 10/07 2300 93 12 133/60 87 100 10/07 2230 94 8 119/59 85 100 10/07 2200 97 19 129/60 86 99 10/07 2130 92 10 120/57 81 100 10/07 2100 93 15 128/59 85 100 10/07 2030 93 14 133/60 87 100 10/07 2000 6 10/07 2000 36.9 Nasal 6 cannula 10/07 2000 92 14 123/63 87 100 10/07 1930 94 15 133/65 90 100 10/07 1910 100 High flow 6 nasal cannula 10/07 1900 91 15 131/68 94 100 10/07 1851 91 21 117/63 83 100 10/07 1845 92 22 100 10/07 1645 96 19 120/63 85 100 10/07 1630 94 10 123/67 88 100 10/07 1615 93 20 120/65 86 99 10/07 1600 97 22 119/63 85 98 10/07 1545 97 22 118/55 80 97 10/07 1530 99 18 125/57 82 94 10/07 1515 94 15 123/59 85 97 10/07 1500 96 18 120/60 83 97 10/07 1445 95 16 117/59 83 95 10/07 1430 100 20 120/59 82 94 10/07 1415 97 16 120/58 82 95 10/07 1400 98 16 115/56 78 90 10/07 1300 94 16 129/60 86 97 10/07 1245 95 14 122/60 85 99 10/07 1230 96 14 121/61 85 99 10/07 1215 96 14 120/58 83 98 10/07 1215 37.1 95 15 120/58 78 99 High flow 6 nasal cannula 10/07 1200 95 15 120/58 83 99 10/07 1145 92 23 120/58 81 100 10/07 1130 99 26 123/80 97 97 10/07 1115 93 24 110/63 81 99 10/07 1100 93 28 113/61 82 98 10/07 1045 95 21 117/59 82 96 10/07 1030 95 22 128/62 88 96 10/07 1015 89 18 126/66 90 98 24 hour I O ending at 0700: 10/08 0700 10/07 1900 Intake Total 340 Output Total 670 1320 Balance -330 -1320 Intake, Oral 340 Output, Stool 200 Output, Urine 670 1120 Patient 114 kg Weight Weight Bed scale Measurement Method PATIENT WEIGHT: Weight (lb): 251 Weight (oz): 5.23 Weight (kg): 114.000 Medications: Active Meds + DC'd Last 24 Hrs Cefdinir (OMNICEF) 300 MG BID PO Lactulose (LACTULOSE) 20 GM BID 9A 5P PO Enoxaparin Sodium (LOVENOX) 40 MG Q12H SUBQ Fentanyl Citrate (SUBLIMAZE) 100 MCG ASDIR IV (CKD) Midazolam HCl (VERSED) 5 MG ASDIR IV (CKD) Thiamine HCl (THIAMINE HCL) 100 MG DAILY FEED-TUBE Albuterol/Ipratropium (IPRATR-ALBUTEROL 0.5-3 MG/3 ML) 3 ML RTQ6H NEB Guaifenesin (MUCINEX ER) 600 MG BID PO Sodium Chloride (SODIUM CHLORIDE) 10 ML BID IV Sodium Chloride (SODIUM CHLORIDE) 10 ML ASDIR PRN IV Albumin Human (ALBUMIN HUMAN) 400 ML ONCE ONE IV Dexmedetomidine HCl (PRECEDEX) 400 MCG Q24H IV Sodium Chloride (SODIUM CHLORIDE 0.9%) 96 ML Hydrocodone Bitart/Acetaminophen (NORCO 5/325 TABLET) 1 TAB Q4H PRN PRN PO (DC) Folic Acid (FOLIC ACID) 1 MG DAILY PO Multivitamins Therapeutic (THERAGRAN) 1 TAB DAILY PO Calcium Gluconate (Calcium Gluconate 1 GM/NS 50 mL (B2)) 50 ML ASDIR PRN IV Calcium Gluconate (Calcium Gluconate 1 GM/NS 50 mL (B2)) 50 ML ASDIR PRN IV Lorazepam (ATIVAN) 1 MG Q4H PRN PRN IV Magnesium Sulfate (MAGNESIUM SULF 2 GM/SWI 50 ML) 50 ML ASDIR PRN IV Potassium Chloride (POTASSIUM CHLORIDE 20 MEQ/100 ML PREMIX) 100 ML ASDIR PRN IV Potassium Chloride (POTASSIUM CHLORIDE 20 MEQ/100 ML PREMIX) 100 ML ASDIR PRN IV Potassium Chloride (POTASSIUM CHLORIDE 20 MEQ/100 ML PREMIX) 100 ML ASDIR PRN IV Potassium Chloride (POTASSIUM CHLORIDE 20 MEQ/100 ML PREMIX) 100 ML ASDIR PRN IV Potassium Phosphate (POTASSIUM PHOSPHATE) 15 MM ASDIR PRN IV (CKD) Sodium Chloride (SODIUM CHLORIDE 0.9%) 100 ML Sodium Phosphate (SODIUM PHOSPHATE) 15 MMOL ASDIR PRN IV Sodium Chloride (SODIUM CHLORIDE 0.9%) 100 ML Sodium Phosphate (SODIUM PHOSPHATE) 20 MMOL ASDIR PRN IV Sodium Chloride (SODIUM CHLORIDE 0.9%) 100 ML Sodium Phosphate (SODIUM PHOSPHATE) 30 MMOL ASDIR PRN IV Sodium Chloride (SODIUM CHLORIDE 0.9%) 100 ML Sterile Water (WATER FOR INJECTION) 10 ML ASDIR PRN IV Ceftriaxone Sodium (cefTRIAXone 1,000 MG VIAL) 1,000 MG Q24H IV (DC) Sodium Chloride (SODIUM CHLORIDE 0.9% 10ML) 10 ML Dextrose/Water (DEXTROSE 10%) 125 ML ASDIR PRN IV (CKD) Dextrose/Water (DEXTROSE 10%) 250 ML ASDIR PRN IV (CKD) Dextrose/Water (DEXTROSE 10%) 125 ML ASDIR PRN IV (CKD) Dextrose/Water (DEXTROSE 10%) 250 ML ASDIR PRN IV (CKD) Furosemide (LASIX 40MG INJ) 40 MG BID 9A 5P IV Glucagon (GLUCAGON) 1 MG ASDIR PRN IM Glucagon (GLUCAGON) 1 MG ASDIR PRN IM Insulin Human Lispro (Admelog) 0 AC HS SUBQ Dietitian nutrition assessment The data set between the solid lines has been imported from the dietitian's assessment. BMI Calculated: 36.1 Nutrition related diagnosis: Nutrition diagnosis details: Nutrition problem: Nutrition etiology: Nutrition signs and symptoms: Nutrition prescription: Dietitian name: Assessment completed: Results Findings/Data: Laboratory Tests 10/07 10/07 1620 1131 Chemistry POC Glucose (70 - 110 mg/dL) 136 H 135 H Free Text Obj Notes Free Text Obj Notes: PHYSICAL EXAMINATION General appearance: Arousable AMS 5 L nasal cannula Head/Eyes: atraumatic, normocephalic, PERRL, EOMI ENT: normal ear left, normal ear right, normal nose, normal pharynx Neck: full range of motion, supple/no meningismus Cardiovascular: normal S1/S2, regular rate rhythm Respiratory/chest: Hypoxia decreased breath sounds bilaterally Abdomen: soft, non-tender, normal bowel sounds Genitourinary: deferred Extremities: Bilateral leg edema Musculoskeletal: full range of motion, normal inspection Neuro/KNOWLEDGE MANAGER alert, oriented X 2, CNII-XII intact Skin: Lower extremity chronic changes Psychiatry: AMS Diagnosis, Assessment Plan Free Text DxA P Notes Free text DxA P notes: Acute hypoxic respiratory failure Nasal cannula oxygen Pulmonary consult Decompensated cirrhosis of liver with anasarca and acute liver failure hepatic encephalopathy IV diuresis GI consult Monitor electrolytes and labs Pneumonia -----IV antibiotics Follow cultures hypocalcemia Replace Recheck in a.m. Nephrology consultation Diabetes mellitus type 2 Sliding scale insulin Discussed with Dr. Tamez Monitor closely Discussed with charge nurse 10/02/2024 Acute hypoxic respiratory failure----ICU monitoring, wean nasal cannula, pulmonology following Sepsis with pneumonia on IV antibiotics Bacteremia, blood cultures from other hospital reportedly positive for strep, blood cultures here pending Decompensated cirrhosis of liver with anasarca, GI consulted, on IV Lasix Hepatic encephalopathy on lactulose Alcoholism on [facility] protocol Diabetes mellitus type 2 Ornelas placed by urology 10/03 worsening pulmonary edema [facility] protocol no pain 10/04/2024 Acute hypoxic respiratory failure, 5 L nasal cannula 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 on IV Lasix, status post paracentesis October 03, 2024, 5.6 L removed, albumin given Hepatic encephalopathy on lactulose Alcoholism on [facility] protocol Bacteremia from other hospital, reportedly strep, blood cultures here negative, IV Rocephin Diabetes mellitus type 2 Ornelas placed by urology for phimosis Full code Lives at home with son Needing restraints Right PICC line placed Poor prognosis DVT prophylaxis with Lovenox 10/05/2024 Wean O2, continue IV Lasix, IV antibiotics for possible aspiration pneumonia, decrease lactulose, rectal tube in place, follow blood cultures PT when able 10/06 continue lactulose seen in ICU IV lasix monitor creatinine daily abx for aspiration cultures pending 10/08 much improved continue abx PT OT at 1013 RPT #:[id number] END OF REPORT [facility] 2024-10-07 12:37:00 [facility] ([facility] Gastroenterology Progress Note REPORT#:[id number] REPORT STATUS: Signed REPORT INITIALIZATION DATE:10/07/24 TIME: 123 PATIENT: ABAD HARRINGTON UNIT #: [id number] ROOM/BED: [place] [id number] : 55 AGE: 69 SEX: M ATTEND: Luisa Vincent MD ADM AUTHOR: Alber García MD REPT SERVICE DT/TIME: 10/07/24 1237 * ALL edits or amendments must be made on the electronic/computer document * Subjective Chief complaint: confused Review of Systems All systems rev neg: except as marked Objective General VS/I O: Last Documented: Result Date Time Pulse Ox 99 10/07 1215 B/P 120/58 10/07 1215 B/P Mean 78 10/07 1215 O2 Delivery High flow nasal cannula 10/07 121 O2 Flow Rate 6 10/07 1215 Temp 37.1 10/07 1215 Pulse 95 10/07 1215 Resp 15 10/07 1215 24 hour I O ending at 0700: 10/07 0700 10/06 1900 Intake Total 460 10.00 Output Total 950 1470 Balance -490 -1460.00 Intake, IV 10.00 Intake, Oral 460 Output, Stool 200 400 Output, Urine 750 1070 PATIENT WEIGHT: Weight (lb): 251 Weight (oz): 5.23 Weight (kg): 114.000 Physical Exam General appearance: confused, alert, awake HEENT: anicteric, atraumatic, normocephalic Neck: full range of motion, non-tender, supple/no meningismus Cardiovascular: normal S1/S2, regular rate rhythm Respiratory: decreased breath sounds, symmetric expansion Abdomen: ascites, distended, normal bowel sounds Extremities: moves all Skin: dry, intact Diagnosis, Assessment Plan Free Text A P: 1. Cirrhosis of liver w/ascites will order hep panel, and INR - paracentesis - lactulose, lasix 2. Hepatic Encephalopathy II - ammonia 43 - lactulose 3. Pneumonia - pulmonary consulted 10/03 - low MELDNA score, HCV Ab positive, will need outpatient work for HCV 10/04 - increase lactulose to q2 hr till he wakes up Grade I-II hepatic encephalopathy 10/05 - still confused, stop librium, will use Ativan. decrease lactulose to q8hr sinc ammonia <40 its possible AMS from chronic abuse of ETOH - withrawl vs wernicke's 10/06 more awake today, no gi bleeding, resting 10/07 continue with lactulose, rectal tube in place on lasix From GI standpoint we will continue to monitor the patient's progress at 1238 RPT #:[id number] END OF REPORT [facility] 2024-10-07 10:28:00 [facility] ([facility] Hospitalist Progress Note REPORT#:[id number] REPORT STATUS: Signed REPORT INITIALIZATION DATE:10/07/24 TIME: 102 PATIENT: ABAD HARRINGTON UNIT #: [id number] ROOM/BED: [place] [id number] : 55 AGE: 69 SEX: M ATTEND: Luisa Vincent MD ADM AUTHOR: Ana María Velasquez MD REPT SERVICE DT/TIME: 10/07/24 1028 * ALL edits or amendments must be made on the electronic/computer document * Subjective Chief complaint: remains confused but less so today rectal tube in place in restraints on supplemental o2 ROs not reliable Review of Systems Free Text ROS Notes Free Text ROS Notes: AMS Objective General VS/I O: Vital Signs: Date Time Temp Pulse Resp B/P B/P Pulse O2 O2 Flow FiO2 Mean Ox Delivery Rate 10/07 0930 94 32 134/70 95 97 10/07 0915 93 18 118/63 85 97 10/07 0900 92 20 111/64 81 97 10/07 0846 95 18 110/59 81 97 10/07 0830 91 19 121/60 84 95 10/07 0815 93 18 118/59 83 96 10/07 0800 90 16 116/63 83 94 10/07 0753 36.7 95 22 103/57 72 95 High flow 6 nasal cannula 10/07 0745 95 22 103/57 76 95 10/07 0730 92 14 118/59 81 98 10/07 0716 91 Nasal 6 cannula 10/07 0715 92 14 114/58 80 94 10/07 0700 92 15 121/63 83 92 10/07 0645 92 20 94/52 67 98 10/07 0630 90 16 93/54 70 98 10/07 0600 92 13 115/66 85 98 10/07 0530 92 14 121/65 88 97 10/07 0500 92 21 125/68 91 97 10/07 0430 93 17 118/62 83 100 10/07 0400 36.8 10/07 0400 98 23 121/72 91 94 10/07 0330 94 14 128/64 90 99 10/07 0300 94 17 118/61 84 98 10/07 0230 96 15 117/60 82 98 10/07 0200 96 15 117/61 83 96 10/07 0130 96 13 122/67 89 97 10/07 0100 96 14 118/63 86 99 10/07 0030 97 17 118/63 84 98 10/07 0000 36.9 10/07 0000 97 14 105/53 75 98 10/06 2330 97 20 115/56 80 95 10/06 2300 96 17 121/56 79 97 10/06 2230 96 14 115/55 79 97 10/06 2200 98 20 123/61 86 95 10/06 2130 97 17 128/64 88 98 10/06 2102 96 18 113/65 84 96 10/06 2100 97 18 97 10/06 2030 97 17 115/65 85 99 10/06 2000 37.1 10/06 2000 100 22 119/70 87 93 10/06 1930 100 21 108/58 80 92 10/06 1900 101 23 117/63 86 91 10/06 1816 95 Nasal 6 cannula 10/06 1800 98 19 127/60 86 93 10/06 1745 96 18 126/69 91 98 10/06 1730 97 24 122/66 88 96 10/06 1716 97 22 127/64 88 96 10/06 1700 98 19 125/65 89 96 10/06 1645 94 13 112/58 80 97 10/06 1630 97 18 120/64 85 96 10/06 1615 98 19 109/63 80 99 10/06 1600 96 16 105/59 77 99 10/06 1545 100 22 116/56 80 97 10/06 1530 95 14 117/60 83 100 10/06 1517 94 14 115/59 81 100 10/06 1516 93 15 123/95 100 99 10/06 1500 96 15 111/55 81 98 10/06 1446 99 15 145/67 97 98 10/06 1431 98 15 108/67 83 99 10/06 1415 93 13 115/60 81 100 10/06 1400 94 14 120/60 84 100 10/06 1330 93 13 116/61 84 100 10/06 1315 94 14 117/63 85 100 10/06 1300 94 13 108/59 81 100 10/06 1245 94 13 102/57 75 100 10/06 1230 97 13 117/57 80 100 10/06 1215 36.8 98 13 114/58 76 99 High flow 7 nasal cannula 10/06 1215 98 13 114/58 79 99 10/06 1210 97 15 123/60 100 Simple 10 mask 10/06 1209 97 15 118/59 82 100 10/06 1206 99 15 123/60 84 100 10/06 1203 101 20 112/61 81 100 10/06 1200 96 15 127/65 89 100 10/06 1157 97 16 121/62 85 100 10/06 1154 96 16 131/74 95 100 10/06 1151 96 16 124/72 92 100 10/06 1148 97 15 114/63 83 100 10/06 1145 99 15 125/65 89 100 10/06 1140 98 19 125/65 89 100 Nasal 6 cannula 10/06 1100 99 23 135/62 92 98 10/06 1057 99 23 145/68 98 99 10/06 1056 99 22 160/72 103 99 24 hour I O ending at 0700: 10/07 0700 10/06 1900 Intake Total 460 10.00 Output Total 950 1470 Balance -490 -1460.00 Intake, IV 10.00 Intake, Oral 460 Output, Stool 200 400 Output, Urine 750 1070 PATIENT WEIGHT: Weight (lb): 315 Weight (oz): 11.23 Weight (kg): 143.200 Medications: Active Meds + DC'd Last 24 Hrs Lactulose (LACTULOSE) 20 GM BID 9A 5P PO Enoxaparin Sodium (LOVENOX) 40 MG Q12H SUBQ Fentanyl Citrate (SUBLIMAZE) 100 MCG ASDIR IV (CKD) Midazolam HCl (VERSED) 5 MG ASDIR IV (CKD) Lidocaine (XYLOCAINE) 0 .STK-MED ONE TOPICAL (DC) Lactulose (LACTULOSE) 20 GM Q6HR PO (DC) Thiamine HCl (THIAMINE HCL) 100 MG DAILY FEED-TUBE Albuterol/Ipratropium (IPRATR-ALBUTEROL 0.5-3 MG/3 ML) 3 ML RTQ6H NEB Guaifenesin (MUCINEX ER) 600 MG BID PO Sodium Chloride (SODIUM CHLORIDE) 10 ML BID IV Sodium Chloride (SODIUM CHLORIDE) 10 ML ASDIR PRN IV Albumin Human (ALBUMIN HUMAN) 400 ML ONCE ONE IV Dexmedetomidine HCl (PRECEDEX) 400 MCG Q24H IV Sodium Chloride (SODIUM CHLORIDE 0.9%) 96 ML Hydrocodone Bitart/Acetaminophen (NORCO 5/325 TABLET) 1 TAB Q4H PRN PRN PO Enoxaparin Sodium (LOVENOX) 40 MG Q24H SUBQ (DC) Folic Acid (FOLIC ACID) 1 MG DAILY PO Multivitamins Therapeutic (THERAGRAN) 1 TAB DAILY PO Calcium Gluconate (Calcium Gluconate 1 GM/NS 50 mL (B2)) 50 ML ASDIR PRN IV Calcium Gluconate (Calcium Gluconate 1 GM/NS 50 mL (B2)) 50 ML ASDIR PRN IV Lorazepam (ATIVAN) 1 MG Q4H PRN PRN IV Magnesium Sulfate (MAGNESIUM SULF 2 GM/SWI 50 ML) 50 ML ASDIR PRN IV Potassium Chloride (POTASSIUM CHLORIDE 20 MEQ/100 ML PREMIX) 100 ML ASDIR PRN IV Potassium Chloride (POTASSIUM CHLORIDE 20 MEQ/100 ML PREMIX) 100 ML ASDIR PRN IV Potassium Chloride (POTASSIUM CHLORIDE 20 MEQ/100 ML PREMIX) 100 ML ASDIR PRN IV Potassium Chloride (POTASSIUM CHLORIDE 20 MEQ/100 ML PREMIX) 100 ML ASDIR PRN IV Potassium Phosphate (POTASSIUM PHOSPHATE) 15 MM ASDIR PRN IV (CKD) Sodium Chloride (SODIUM CHLORIDE 0.9%) 100 ML Sodium Phosphate (SODIUM PHOSPHATE) 15 MMOL ASDIR PRN IV Sodium Chloride (SODIUM CHLORIDE 0.9%) 100 ML Sodium Phosphate (SODIUM PHOSPHATE) 20 MMOL ASDIR PRN IV Sodium Chloride (SODIUM CHLORIDE 0.9%) 100 ML Sodium Phosphate (SODIUM PHOSPHATE) 30 MMOL ASDIR PRN IV Sodium Chloride (SODIUM CHLORIDE 0.9%) 100 ML Sterile Water (WATER FOR INJECTION) 10 ML ASDIR PRN IV Ceftriaxone Sodium (cefTRIAXone 1,000 MG VIAL) 1,000 MG Q24H IV Sodium Chloride (SODIUM CHLORIDE 0.9% 10ML) 10 ML Dextrose/Water (DEXTROSE 10%) 125 ML ASDIR PRN IV (CKD) Dextrose/Water (DEXTROSE 10%) 250 ML ASDIR PRN IV (CKD) Dextrose/Water (DEXTROSE 10%) 125 ML ASDIR PRN IV (CKD) Dextrose/Water (DEXTROSE 10%) 250 ML ASDIR PRN IV (CKD) Furosemide (LASIX 40MG INJ) 40 MG BID 9A 5P IV Glucagon (GLUCAGON) 1 MG ASDIR PRN IM Glucagon (GLUCAGON) 1 MG ASDIR PRN IM Insulin Human Lispro (Admelog) 0 AC HS SUBQ Dietitian nutrition assessment [id number] The data set between the solid lines has been imported from the dietitian's assessment. BMI Calculated: 45.3 Nutrition related diagnosis: Nutrition diagnosis details: Nutrition problem: Nutrition etiology: Nutrition signs and symptoms: Nutrition prescription: Dietitian name: Assessment completed: Results Findings/Data: Laboratory Tests 10/07 10/07 10/07 10/06 10/06 0745 0430 429 2011 1637 Chemistry Sodium (136 - 145 mmol/L) 143 Potassium (3.5 - 5.1 mmol/L) 3.8 Chloride (98 - 107 mmol/L) 103 Carbon Dioxide (20.0 - 31.0 mmol/L) >40 *H BUN (9 - 23 mg/dL) 15 Creatinine (0.60 - 1.30 mg/dL) 0.67 Estimated Creat Clear (>30 mL/min) 107 Glomerular Filtr Rate (mL/min) 101 Glucose (74 - 106 mg/dL) 110 H POC Glucose (70 - 110 mg/dL) 98 130 H 102 Calcium (8.7 - 10.4 mg/dL) 7.9 L Ammonia (11.0 - 32.0 umol/L) 32 10/06 10/06 1329 1125 Chemistry Sodium (136 - 145 mmol/L) 144 Potassium (3.5 - 5.1 mmol/L) 3.5 Chloride (98 - 107 mmol/L) 101 Carbon Dioxide (20.0 - 31.0 mmol/L) >40 *H BUN (9 - 23 mg/dL) 14 Creatinine (0.60 - 1.30 mg/dL) 0.60 Estimated Creat Clear (>30 mL/min) 120 Glomerular Filtr Rate (mL/min) 104 Glucose (74 - 106 mg/dL) 113 H POC Glucose (70 - 110 mg/dL) 128 H Calcium (8.7 - 10.4 mg/dL) 8.1 L Laboratory Tests 12/20 0430 Hematology WBC (4.5 - 11.0 K/mm3) 5.8 RBC (4.40 - 5.90 M/mm3) 3.87 L Hgb (13.0 - 17.0 gm/dL) 12.0 L Hct (36.0 - 48.0 %) 37.7 MCV (80.0 - 94.0 UM3) 97.4 H MCH (25.5 - 32.5 UUG) 31.0 MCHC (29.0 - 35.5 gm/dL) 31.8 RDW (11.5 - 15.0 %) 17.0 H Plt Count (150 - 400 K/mm3) 182 MPV (7.4 - 10.4 fl) 9.4 Neut % (Auto) (49.0 - 76.0 %) 57.2 Lymph % (Auto) (23.0 - 38.0 %) 20.5 L [place] % (Auto) (1.0 - 10.0 %) 9.6 Eos % (Auto) (1.0 - 5.0 %) 8.0 H Baso % (Auto) (0.0 - 1.0 %) 1.0 Neut # (Auto) (2.4 - 6.3 K/mm3) 3.3 Lymph # (Auto) (1.2 - 4.0 K/mm3) 1.2 [place] # (Auto) (0.0 - 0.6 K/mm3) 0.6 Eos # (Auto) (0.0 - 0.7 K/MM3) 0.5 Baso # (Auto) (0.0 - 0.2 K/mm3) 0.1 Absolute Nucleated RBC (0.00 - 0.01 X10 3uL) 0.00 Immature Gran % (0.0 - 0.4 %) 3.7 H Nucleated RBC % (0.0 - 0.1 %) 0.0 Immature Gran # (0.00 - 0.07 x10 3/uL) 0.21 H Free Text Obj Notes Free Text Obj Notes: PHYSICAL EXAMINATION General appearance: Arousable AMS 5 L nasal cannula Head/Eyes: atraumatic, normocephalic, PERRL, EOMI ENT: normal ear left, normal ear right, normal nose, normal pharynx Neck: full range of motion, supple/no meningismus Cardiovascular: normal S1/S2, regular rate rhythm Respiratory/chest: Hypoxia decreased breath sounds bilaterally Abdomen: soft, non-tender, normal bowel sounds Genitourinary: deferred Extremities: Bilateral leg edema Musculoskeletal: full range of motion, normal inspection Neuro/KNOWLEDGE MANAGER alert, oriented X 2, CNII-XII intact Skin: Lower extremity chronic changes Psychiatry: AMS Diagnosis, Assessment Plan Free Text DxA P Notes Free text DxA P notes: Acute hypoxic respiratory failure Nasal cannula oxygen Pulmonary consult Decompensated cirrhosis of liver with anasarca and acute liver failure hepatic encephalopathy IV diuresis GI consult Monitor electrolytes and labs Pneumonia -----IV antibiotics Follow cultures hypocalcemia Replace Recheck in a.m. Nephrology consultation Diabetes mellitus type 2 Sliding scale insulin Discussed with Dr. Tamez Monitor closely Discussed with charge nurse 10/02/2024 Acute hypoxic respiratory failure----ICU monitoring, wean nasal cannula, pulmonology following Sepsis with pneumonia on IV antibiotics Bacteremia, blood cultures from other hospital reportedly positive for strep, blood cultures here pending Decompensated cirrhosis of liver with anasarca, GI consulted, on IV Lasix Hepatic encephalopathy on lactulose Alcoholism on [facility] protocol Diabetes mellitus type 2 Ornelas placed by urology 10/03 worsening pulmonary edema [facility] protocol no pain 10/04/2024 Acute hypoxic respiratory failure, 5 L nasal cannula 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 on IV Lasix, status post paracentesis October 03, 2024, 5.6 L removed, albumin given Hepatic encephalopathy on lactulose Alcoholism on [facility] protocol Bacteremia from other hospital, reportedly strep, blood cultures here negative, IV Rocephin Diabetes mellitus type 2 Ornelas placed by urology for phimosis Full code Lives at home with son Needing restraints Right PICC line placed Poor prognosis DVT prophylaxis with Lovenox 10/05/2024 Wean O2, continue IV Lasix, IV antibiotics for possible aspiration pneumonia, decrease lactulose, rectal tube in place, follow blood cultures PT when able 10/06 continue lactulose seen in ICU IV lasix monitor creatinine daily abx for aspiration cultures pending at 1030 RPT #[id number] END OF REPORT [facility] 2024-10-07 10:12:00 [facility]) Pulmonology Progress Note REPORT#:[id number] REPORT STATUS: Signed REPORT INITIALIZATION DATE:10/07/24 TIME: 101 PATIENT: ABAD HARRINGTON UNIT #: [id number] ROOM/BED: [place] [id number] : 55 AGE: 69 SEX: M ATTEND: Luisa Vincent MD ADM AUTHOR: Fawad Jacobo MD REPT SERVICE DT/TIME: 10/07/24 1012 * ALL edits or amendments must be made on the electronic/computer document * Subjective Chief complaint: AMS. Patient reports: Yes: resting comfortably. No: congestion, cough, shortness of breath. Comments: He is more alert, not in any distress. He is eating breakfast at my visit. ROS negative for f/c, n/v. Objective General VS/I O: Last Documented: Result Date Time Pulse Ox 97 10/07 0930 B/P 134/70 10/07 0930 B/P Mean 95 10/07 0930 Pulse 94 10/07 0930 Resp 32 10/07 0930 O2 Delivery High flow nasal cannula 10/07 0753 O2 Flow Rate 6 10/07 0753 Temp 98.0 10/07 0753 24 hour I O ending at 0700: 10/06 1900 10/07 0700 Intake Total 10.00 460 Output Total 1470 950 Balance -1460.00 -490 Intake, IV 10.00 Intake, Oral 460 Output, Stool 400 200 Output, Urine 1070 750 PATIENT WEIGHT: Weight (lb): 315 Weight (oz): 11.23 Weight (kg): 143.200 Medications: Active Meds + DC'd Last 24 Hrs Lactulose (LACTULOSE) 20 GM BID 9A 5P PO Enoxaparin Sodium (LOVENOX) 40 MG Q12H SUBQ Fentanyl Citrate (SUBLIMAZE) 100 MCG ASDIR IV (CKD) Midazolam HCl (VERSED) 5 MG ASDIR IV (CKD) Lidocaine (XYLOCAINE) 0 .STK-MED ONE TOPICAL (DC) Lactulose (LACTULOSE) 20 GM Q6HR PO (DC) Thiamine HCl (THIAMINE HCL) 100 MG DAILY FEED-TUBE Albuterol/Ipratropium (IPRATR-ALBUTEROL 0.5-3 MG/3 ML) 3 ML RTQ6H NEB Guaifenesin (MUCINEX ER) 600 MG BID PO Sodium Chloride (SODIUM CHLORIDE) 10 ML BID IV Sodium Chloride (SODIUM CHLORIDE) 10 ML ASDIR PRN IV Albumin Human (ALBUMIN HUMAN) 400 ML ONCE ONE IV Dexmedetomidine HCl (PRECEDEX) 400 MCG Q24H IV Sodium Chloride (SODIUM CHLORIDE 0.9%) 96 ML Hydrocodone Bitart/Acetaminophen (NORCO 5/325 TABLET) 1 TAB Q4H PRN PRN PO Enoxaparin Sodium (LOVENOX) 40 MG Q24H SUBQ (DC) Folic Acid (FOLIC ACID) 1 MG DAILY PO Multivitamins Therapeutic (THERAGRAN) 1 TAB DAILY PO Calcium Gluconate (Calcium Gluconate 1 GM/NS 50 mL (B2)) 50 ML ASDIR PRN IV Calcium Gluconate (Calcium Gluconate 1 GM/NS 50 mL (B2)) 50 ML ASDIR PRN IV Lorazepam (ATIVAN) 1 MG Q4H PRN PRN IV Magnesium Sulfate (MAGNESIUM SULF 2 GM/SWI 50 ML) 50 ML ASDIR PRN IV Potassium Chloride (POTASSIUM CHLORIDE 20 MEQ/100 ML PREMIX) 100 ML ASDIR PRN IV Potassium Chloride (POTASSIUM CHLORIDE 20 MEQ/100 ML PREMIX) 100 ML ASDIR PRN IV Potassium Chloride (POTASSIUM CHLORIDE 20 MEQ/100 ML PREMIX) 100 ML ASDIR PRN IV Potassium Chloride (POTASSIUM CHLORIDE 20 MEQ/100 ML PREMIX) 100 ML ASDIR PRN IV Potassium Phosphate (POTASSIUM PHOSPHATE) 15 MM ASDIR PRN IV (CKD) Sodium Chloride (SODIUM CHLORIDE 0.9%) 100 ML Sodium Phosphate (SODIUM PHOSPHATE) 15 MMOL ASDIR PRN IV Sodium Chloride (SODIUM CHLORIDE 0.9%) 100 ML Sodium Phosphate (SODIUM PHOSPHATE) 20 MMOL ASDIR PRN IV Sodium Chloride (SODIUM CHLORIDE 0.9%) 100 ML Sodium Phosphate (SODIUM PHOSPHATE) 30 MMOL ASDIR PRN IV Sodium Chloride (SODIUM CHLORIDE 0.9%) 100 ML Sterile Water (WATER FOR INJECTION) 10 ML ASDIR PRN IV Ceftriaxone Sodium (cefTRIAXone 1,000 MG VIAL) 1,000 MG Q24H IV Sodium Chloride (SODIUM CHLORIDE 0.9% 10ML) 10 ML Dextrose/Water (DEXTROSE 10%) 125 ML ASDIR PRN IV (CKD) Dextrose/Water (DEXTROSE 10%) 250 ML ASDIR PRN IV (CKD) Dextrose/Water (DEXTROSE 10%) 125 ML ASDIR PRN IV (CKD) Dextrose/Water (DEXTROSE 10%) 250 ML ASDIR PRN IV (CKD) Furosemide (LASIX 40MG INJ) 40 MG BID 9A 5P IV Glucagon (GLUCAGON) 1 MG ASDIR PRN IM Glucagon (GLUCAGON) 1 MG ASDIR PRN IM Insulin Human Lispro (Admelog) 0 AC HS SUBQ Dietitian nutrition assessment The data set between the solid lines has been imported from the dietitian's assessment. BMI Calculated: 45.3 Nutrition related diagnosis: Nutrition diagnosis details: Nutrition problem: Nutrition etiology: Nutrition signs and symptoms: Nutrition prescription: Dietitian name: Assessment completed: Physical Exam General appearance: respiratory support (nasal oxygen), alert, awake, no acute distress, pleasant, conversational Head/eyes: atraumatic, normocephalic, PERRL, EOMI, clear cornea, normal conjunctiva/sclera, normal fundi, normal eyelids/periorb. ENT: ENT: normal dentition, normal ear left, normal ear right, normal nose, normal pharynx, normal sinus Neck: full range of motion, non-tender, normal thyroid, supple/no meningismus, no bruit/NL carotids, no JVD, no lymphadenopathy, no masses or swelling Cardiovascular: regular rate rhythm Respiratory/chest: crackles, rhonchi, aerating well, symmetric expansion, no distress Abdomen: soft, non-tender, no distention, no guarding, no mass/organomegaly, no rebound Extremities: edema, moves all, normal capillary refill Musculoskeletal: full range of motion, normal inspection Neuro/KNOWLEDGE MANAGER: alert Skin: dry, intact Lymphatics: axilla normal, inguinal normal, neck normal, no lymphadenopathy Psychiatry: normal affect, normal judgment/insight, normal mood Results Findings/Data: Laboratory Tests 10/06/24 1329: [Embedded Image Not Available] 10/07/24 0430: [Embedded Image Not Available] 10/07/24 0430: [Embedded Image Not Available] Laboratory Tests 10/06 10/06 10/06 10/06 10/07 1125 1329 1637 2011 429 Chemistry Sodium (136 - 145 mmol/L) 144 Potassium (3.5 - 5.1 mmol/L) 3.5 Chloride (98 - 107 mmol/L) 101 Carbon Dioxide (20.0 - 31.0 mmol/L) >40 *H BUN (9 - 23 mg/dL) 14 Creatinine (0.60 - 1.30 mg/dL) 0.60 Estimated Creat Clear (>30 mL/min) 120 Glomerular Filtr Rate (mL/min) 104 Glucose (74 - 106 mg/dL) 113 H POC Glucose (70 - 110 mg/dL) 128 H 102 130 H Calcium (8.7 - 10.4 mg/dL) 8.1 L Ammonia (11.0 - 32.0 umol/L) 32 10/07 10/07 043 0745 Chemistry Sodium (136 - 145 mmol/L) 143 Potassium (3.5 - 5.1 mmol/L) 3.8 Chloride (98 - 107 mmol/L) 103 Carbon Dioxide (20.0 - 31.0 mmol/L) >40 *H BUN (9 - 23 mg/dL) 15 Creatinine (0.60 - 1.30 mg/dL) 0.67 Estimated Creat Clear (>30 mL/min) 107 Glomerular Filtr Rate (mL/min) 101 Glucose (74 - 106 mg/dL) 110 H POC Glucose (70 - 110 mg/dL) 98 Calcium (8.7 - 10.4 mg/dL) 7.9 L Laboratory Tests 10/07 043 Hematology WBC (4.5 - 11.0 K/mm3) 5.8 RBC (4.40 - 5.90 M/mm3) 3.87 L Hgb (13.0 - 17.0 gm/dL) 12.0 L Hct (36.0 - 48.0 %) 37.7 MCV (80.0 - 94.0 UM3) 97.4 H MCH (25.5 - 32.5 UUG) 31.0 MCHC (29.0 - 35.5 gm/dL) 31.8 RDW (11.5 - 15.0 %) 17.0 H Plt Count (150 - 400 K/mm3) 182 MPV (7.4 - 10.4 fl) 9.4 Neut % (Auto) (49.0 - 76.0 %) 57.2 Lymph % (Auto) (23.0 - 38.0 %) 20.5 L [place] % (Auto) (1.0 - 10.0 %) 9.6 Eos % (Auto) (1.0 - 5.0 %) 8.0 H Baso % (Auto) (0.0 - 1.0 %) 1.0 Neut # (Auto) (2.4 - 6.3 K/mm3) 3.3 Lymph # (Auto) (1.2 - 4.0 K/mm3) 1.2 [place] # (Auto) (0.0 - 0.6 K/mm3) 0.6 Eos # (Auto) (0.0 - 0.7 K/MM3) 0.5 Baso # (Auto) (0.0 - 0.2 K/mm3) 0.1 Absolute Nucleated RBC (0.00 - 0.01 X10 3uL) 0.00 Immature Gran % (0.0 - 0.4 %) 3.7 H Nucleated RBC % (0.0 - 0.1 %) 0.0 Immature Gran # (0.00 - 0.07 x10 3/uL) 0.21 H Diagnosis, Assessment Plan Free Text A P: 1. Sepsis Suspicious given tachycardia and reported blood culture positive Empiric antibiotics Etiology is unclear -> possibly aspiration pneumonia? 2. Cirrhosis Decompensated GI following Ammonia elevated Lactulose s/p paracentesis 10/03 with removal of 5.6 L 3. Pleural effusion Possible hepatic hydrothorax? Repeat chest x-ray Follow symptoms 4. Hypoxemia Wean oxygen as tolerated 5. Altered mental status/ethanol abuse Hepatic encephalopathy lactulose improving ammonia CIWA protocol off Librium 6. Pulmonary infiltrates likely aspiration pneumonia abx cont nebs and Mucinex s/p bronchoscopy 10/06. Follow cultures. Excellent diuresis. Weight down to 250 pounds today (down from 315 pounds at admission). at 1015 RPT #:[id number] END OF REPORT [facility] 2024-10-06 13:35:00 [facility] ([facility]) Gastroenterology Progress Note REPORT#:[id number] REPORT STATUS: Signed REPORT INITIALIZATION DATE:10/06/24 TIME: 1334 PATIENT: ABAD HARRINGTON UNIT #: [id number] ROOM/BED: [place] [id number] : 55 AGE: 69 SEX: M ATTEND: Luisa Vincent MD ADM AUTHOR: Maria Luz Veloz MD REPT SERVICE DT/TIME: 10/06/24 133 * ALL edits or amendments must be made on the electronic/computer document * Subjective Chief complaint: confused Review of Systems All systems rev neg: except as marked Objective General VS/I O: Last Documented: Result Date Time Pulse Ox 99 10/06 1215 B/P 114/58 10/06 1215 B/P Mean 76 10/06 1215 O2 Delivery High flow nasal cannula 10/06 121 O2 Flow Rate 7 10/06 1215 Temp 98.2 10/06 1215 Pulse 98 10/06 1215 Resp 13 10/06 1215 24 hour I O ending at 0700: 10/06 0700 10/05 1900 Intake Total 240 200.00 Output Total 1575 2600 Balance -1335 -2400.00 Intake, IV 200.00 Intake, Oral 240 Output, Stool 500 500 Output, Urine 1075 2100 PATIENT WEIGHT: Weight (lb): 315 Weight (oz): 11.23 Weight (kg): 143.200 Physical Exam General appearance: alert, awake HEENT: anicteric, atraumatic, normocephalic Neck: full range of motion, non-tender, supple/no meningismus Cardiovascular: normal S1/S2, regular rate rhythm Respiratory: decreased breath sounds, symmetric expansion Abdomen: ascites, distended, normal bowel sounds Extremities: moves all Skin: dry, intact Diagnosis, Assessment Plan Free Text A P: 1. Cirrhosis of liver w/ascites will order hep panel, and INR - paracentesis - lactulose, lasix 2. Hepatic Encephalopathy II - ammonia 43 - lactulose 3. Pneumonia - pulmonary consulted 10/03 - low MELDNA score, HCV Ab positive, will need outpatient work for HCV 10/04 - increase lactulose to q2 hr till he wakes up Grade I-II hepatic encephalopathy 10/05 - still confused, stop librium, will use Ativan. decrease lactulose to q8hr sinc ammonia <40 its possible AMS from chronic abuse of ETOH - withrawl vs wernicke's 10/06 more awake today, no gi bleeding, resting From GI standpoint we will continue to monitor the patient's progress at 1335 RPT #:[id number] END OF REPORT [facility] 2024-10-06 12:12:00 [facility] ([facility]) Pulmonology Progress Note REPORT#:[id number] REPORT STATUS: Signed REPORT INITIALIZATION DATE:10/06/24 TIME: 1211 PATIENT: ABAD HARRINGTON UNIT #: [id number] ROOM/BED: [place] [id number] : 55 AGE: 69 SEX: M ATTEND: Luisa Vincent MD ADM AUTHOR: Fawad Jacobo MD REPT SERVICE DT/TIME: 10/06/24 1212 * ALL edits or amendments must be made on the electronic/computer document * Subjective Chief complaint: AMS. Unable to obtain: altered mental status Comments: He has significant cough and congestion. BiPAP was ordered to standby last evening but was not ever required. He is in no distress. ROS negative for f/c, n/v. Objective General VS/I O: Last Documented: Result Date Time Pulse Ox 99 10/06 806 B/P 146/76 10/06 806 B/P Mean 99 10/06 08 O2 Delivery Nasal cannula 10/06 806 O2 Flow Rate 7 10/06 806 Temp 98.0 10/06 806 Pulse 100 10/06 08 Resp 30 10/06 08 24 hour I O ending at 0700: 10/05 1900 10/06 0700 Intake Total 200.00 240 Output Total 2600 1575 Balance -2400.00 -1335 Intake, IV 200.00 Intake, Oral 240 Output, Stool 500 500 Output, Urine 2100 1075 PATIENT WEIGHT: Weight (lb): 315 Weight (oz): 11.23 Weight (kg): 143.200 Medications: Active Meds + DC'd Last 24 Hrs Fentanyl Citrate (SUBLIMAZE) 100 MCG ASDIR IV (CKD) Midazolam HCl (VERSED) 5 MG ASDIR IV (CKD) Lidocaine (XYLOCAINE) 0 .STK-MED ONE .ROUTE (DC) Lactulose (LACTULOSE) 20 GM Q6HR PO Atropine Sulfate (ATROPINE SULFATE 0.1MG/ML SYR) 0 .STK-MED ONE IV (DC) Chlordiazepoxide HCl (LIBRIUM) 25 MG Q24H PO (CAN) Thiamine HCl (THIAMINE HCL) 100 MG DAILY FEED-TUBE Albuterol/Ipratropium (IPRATR-ALBUTEROL 0.5-3 MG/3 ML) 3 ML RTQ6H NEB Guaifenesin (MUCINEX ER) 600 MG BID PO Lactulose (LACTULOSE) 20 GM Q2H PO (DC) Sodium Chloride (SODIUM CHLORIDE) 10 ML BID IV Sodium Chloride (SODIUM CHLORIDE) 10 ML ASDIR PRN IV Albumin Human (ALBUMIN HUMAN) 400 ML ONCE ONE IV Dexmedetomidine HCl (PRECEDEX) 400 MCG Q24H IV Sodium Chloride (SODIUM CHLORIDE 0.9%) 96 ML Hydrocodone Bitart/Acetaminophen (NORCO 5/325 TABLET) 1 TAB Q4H PRN PRN PO Enoxaparin Sodium (LOVENOX) 40 MG Q24H SUBQ Folic Acid (FOLIC ACID) 1 MG DAILY PO Multivitamins Therapeutic (THERAGRAN) 1 TAB DAILY PO Mupirocin (BACTROBAN 2% 22 GM OINT) 1 APPLIC BID NASAL (DC) Calcium Gluconate (Calcium Gluconate 1 GM/NS 50 mL (B2)) 50 ML ASDIR PRN IV Calcium Gluconate (Calcium Gluconate 1 GM/NS 50 mL (B2)) 50 ML ASDIR PRN IV Lorazepam (ATIVAN) 1 MG Q4H PRN PRN IV Magnesium Sulfate (MAGNESIUM SULF 2 GM/SWI 50 ML) 50 ML ASDIR PRN IV Potassium Chloride (POTASSIUM CHLORIDE 20 MEQ/100 ML PREMIX) 100 ML ASDIR PRN IV Potassium Chloride (POTASSIUM CHLORIDE 20 MEQ/100 ML PREMIX) 100 ML ASDIR PRN IV Potassium Chloride (POTASSIUM CHLORIDE 20 MEQ/100 ML PREMIX) 100 ML ASDIR PRN IV Potassium Chloride (POTASSIUM CHLORIDE 20 MEQ/100 ML PREMIX) 100 ML ASDIR PRN IV Potassium Phosphate (POTASSIUM PHOSPHATE) 15 MM ASDIR PRN IV (CKD) Sodium Chloride (SODIUM CHLORIDE 0.9%) 100 ML Sodium Phosphate (SODIUM PHOSPHATE) 15 MMOL ASDIR PRN IV Sodium Chloride (SODIUM CHLORIDE 0.9%) 100 ML Sodium Phosphate (SODIUM PHOSPHATE) 20 MMOL ASDIR PRN IV Sodium Chloride (SODIUM CHLORIDE 0.9%) 100 ML Sodium Phosphate (SODIUM PHOSPHATE) 30 MMOL ASDIR PRN IV Sodium Chloride (SODIUM CHLORIDE 0.9%) 100 ML Sterile Water (WATER FOR INJECTION) 10 ML ASDIR PRN IV Ceftriaxone Sodium (cefTRIAXone 1,000 MG VIAL) 1,000 MG Q24H IV Sodium Chloride (SODIUM CHLORIDE 0.9% 10ML) 10 ML Dextrose/Water (DEXTROSE 10%) 125 ML ASDIR PRN IV (CKD) Dextrose/Water (DEXTROSE 10%) 250 ML ASDIR PRN IV (CKD) Dextrose/Water (DEXTROSE 10%) 125 ML ASDIR PRN IV (CKD) Dextrose/Water (DEXTROSE 10%) 250 ML ASDIR PRN IV (CKD) Furosemide (LASIX 40MG INJ) 40 MG BID 9A 5P IV Glucagon (GLUCAGON) 1 MG ASDIR PRN IM Glucagon (GLUCAGON) 1 MG ASDIR PRN IM Insulin Human Lispro (Admelog) 0 AC HS SUBQ Physical Exam General appearance: respiratory support, awake Head/eyes: atraumatic, normocephalic, PERRL, EOMI, clear cornea, normal conjunctiva/sclera, normal fundi, normal eyelids/periorb. ENT: ENT: normal dentition, normal ear left, normal ear right, normal nose, normal pharynx, normal sinus Neck: full range of motion, non-tender, normal thyroid, supple/no meningismus, no bruit/NL carotids, no JVD, no lymphadenopathy, no masses or swelling Cardiovascular: regular rate rhythm Respiratory/chest: crackles, rhonchi, aerating well, symmetric expansion, no distress Abdomen: soft, non-tender, no distention, no guarding, no mass/organomegaly, no rebound Extremities: edema, moves all, normal capillary refill Musculoskeletal: full range of motion, normal inspection Neuro/KNOWLEDGE MANAGER: alert Skin: dry, intact Lymphatics: axilla normal, inguinal normal, neck normal, no lymphadenopathy Psychiatry: abnl judgment/insight, normal mood Results Findings/Data: Laboratory Tests 10/06 0629 Blood Gas Puncture Site RB ABG pH (7.350 - 7.450) 7.479 H ABG pCO2 (35.0 - 45.0 mmHg) 55.5 H ABG pO2 (80.0 mmHg) 83.8 ABG HCO3 (22.0 - 26.0 MMOL/L) 40.3 H ABG O2 Saturation (92.0 - 99.0 %) 96.6 ABG Base Excess (-4.0 - 4.0 MMOL/L) 14.5 H Nahid Test Yes Carboxyhemoglobin (0.0 - 1.5 % THgb) 0.8 Methemoglobin (0.0 - 1.5 %) 0.2 Total Hemoglobin (12.0 - 16.0 g/dL) 12.3 FiO2 (%) 52.0 Laboratory Tests 10/05 10/05 10/06 10/06 1610 2008 0747 1125 Chemistry POC Glucose (70 - 110 mg/dL) 142 H 156 H 136 H 128 H Radiology data: Recent Impressions: RADIOLOGY - XR CHEST 1 V 10/06 0603 Report Impression - Status: SIGNED Entered: 10/06/2024 0751 IMPRESSION: No significant interval change. Impression By: Karin Chawla M.D. Diagnosis, Assessment Plan Free Text A P: 1. Sepsis Suspicious given tachycardia and reported blood culture positive Empiric antibiotics Etiology is unclear -> possibly aspiration pneumonia? 2. Cirrhosis Decompensated GI following Ammonia elevated Lactulose s/p paracentesis 10/03 with removal of 5.6 L 3. Pleural effusion Possible hepatic hydrothorax? Repeat chest x-ray Follow symptoms 4. Hypoxemia Wean oxygen as tolerated 5. Altered mental status/ethanol abuse Hepatic encephalopathy lactulose q2h improving ammonia [facility] protocol 6. Pulmonary infiltrates likely aspiration pneumonia abx cont nebs and Mucinex s/p bronchoscopy 10/06. Follow cultures. at 1910 RPT #:[id number] END OF REPORT [facility] 2024-10-06 12:09:00 [facility] ([facility]) Bronchoscopy Post Proc Full REPORT#:[id number] REPORT STATUS: Signed REPORT INITIALIZATION DATE:10/06/24 TIME: 1209 PATIENT: ABAD HARRINGTON UNIT #: [id number] ROOM/BED: [place] [id number] : 55 AGE: 69 SEX: M ATTEND: Luisa Vincent MD ADM AUTHOR: Fawad Jacobo MD REPT SERVICE DT/TIME: 10/06/24 1209 * ALL edits or amendments must be made on the electronic/computer document * Post Bronchoscopy Procedure Start date: 10/06/24 Start time: 1201 (End time 120) Pre-procedure diagnosis: Aspiration pneumonia Acute hypoxemic respiratory failure Post-procedure diagnosis: Aspiration pneumonia Acute hypoxemic respiratory failure Procedure performed-bronchoscopy therapeutic bronchoscopy Performed by: Grecia Jacobo MD Lime Puller(s): endoscopy staff, ICU nurse Findings: 1. Bloody secretions in larynx; 2. Large polyp at vocal commissure; 3. Leukoplakia L true vocal cord; 4. Copious, brown/purulent secretions R>L; 5. No endobronchial lesions. Consent obtained: yes Consent obtained from: daughter Anesthesia: local - lidocaine, moderate sedation (fentanyl 50 mcg, midazolam 2 mg) Mod. sedation provided by me: yes Independent trained observer present monitored pt's resp. to the sedation yes Technique/Procedure: After obtaining informed consent, the endoscopy team was brought to the patient' s bedside. A timeout was performed, and a bite-block was placed in his oral cavity. Moderate sedation was then induced and the bronchoscopy was performed with findings as noted above. Saline lavage was utilized to facilitate aspiration of secretions. Patient tolerated the procedure well without any complications apparent. Specimens removed/altered: washings Specimens sent to: microbiology, cytology Implant(s): none Complications: none Estimated blood loss in ml's: none at 1212 RPT #:[id number] END OF REPORT [facility] 2024-10-06 09:33:00 [facility] ([facility]) Hospitalist Progress Note REPORT#:[id number] REPORT STATUS: Signed REPORT INITIALIZATION DATE:10/06/24 TIME: 932 PATIENT: ABAD HARRINGTON UNIT #: [id number] ROOM/BED: [place] [id number] : 55 AGE: 69 SEX: M ATTEND: Luisa Vincent MD ADM AUTHOR: Ana María Velasquez MD REPT SERVICE DT/TIME: 10/06/24 0933 * ALL edits or amendments must be made on the electronic/computer document * Subjective Chief complaint: remains confused in restraints on supplemental o2 ROs not reliable Review of Systems Free Text ROS Notes Free Text ROS Notes: AMS Objective General VS/I O: Vital Signs: Date Time Temp Pulse Resp B/P B/P Pulse O2 O2 Flow FiO2 Mean Ox Delivery Rate 10/06 0806 36.7 100 30 146/76 99 99 Nasal 7 cannula 10/06 0800 100 35 146/76 100 99 10/06 0700 94 20 147/67 97 100 10/06 0400 37.2 10/06 0153 99 20 96 10/06 0100 100 10/06 0000 37.2 8 10/06 0000 101 23 138/75 101 100 10/05 2327 98 Nasal 8 cannula 10/05 2303 107 32 144/64 92 94 10/05 2200 102 21 122/57 82 92 10/05 2100 97 19 118/58 81 96 10/05 2000 37.1 10/05 2000 100 23 138/66 94 93 10/05 1900 98 23 135/61 88 99 10/05 1800 98 20 128/67 92 100 10/05 1747 96 Nasal 5 cannula 10/05 1700 109 24 133/67 91 97 10/05 1600 37.2 10/05 1600 103 33 162/115 124 94 10/05 1500 101 30 131/66 91 97 10/05 1441 101 20 122/63 86 96 10/05 1400 109 10/05 1300 107 27 136/64 87 98 10/05 1200 109 25 144/69 98 95 10/05 1115 92 Nasal 4 cannula 10/05 1100 110 28 142/69 99 94 10/05 1000 110 30 151/70 100 95 24 hour I O ending at 0700: 10/06 0700 10/05 1900 Intake Total 240 200.00 Output Total 1575 2600 Balance -1335 -2400.00 Intake, IV 200.00 Intake, Oral 240 Output, Stool 500 500 Output, Urine 1075 2100 PATIENT WEIGHT: Weight (lb): 315 Weight (oz): 11.23 Weight (kg): 143.200 Medications: Active Meds + DC'd Last 24 Hrs Lactulose (LACTULOSE) 20 GM Q6HR PO Atropine Sulfate (ATROPINE SULFATE 0.1MG/ML SYR) 0 .STK-MED ONE IV (DC) Chlordiazepoxide HCl (LIBRIUM) 25 MG Q24H PO (CAN) Thiamine HCl (THIAMINE HCL) 100 MG DAILY FEED-TUBE Albuterol/Ipratropium (IPRATR-ALBUTEROL 0.5-3 MG/3 ML) 3 ML RTQ6H NEB Guaifenesin (MUCINEX ER) 600 MG BID PO Lactulose (LACTULOSE) 20 GM Q2H PO (DC) Sodium Chloride (SODIUM CHLORIDE) 10 ML BID IV Sodium Chloride (SODIUM CHLORIDE) 10 ML ASDIR PRN IV Albumin Human (ALBUMIN HUMAN) 400 ML ONCE ONE IV Dexmedetomidine HCl (PRECEDEX) 400 MCG Q24H IV Sodium Chloride (SODIUM CHLORIDE 0.9%) 96 ML Hydrocodone Bitart/Acetaminophen (NORCO 5/325 TABLET) 1 TAB Q4H PRN PRN PO Enoxaparin Sodium (LOVENOX) 40 MG Q24H SUBQ Folic Acid (FOLIC ACID) 1 MG DAILY PO Multivitamins Therapeutic (THERAGRAN) 1 TAB DAILY PO Mupirocin (BACTROBAN 2% 22 GM OINT) 1 APPLIC BID NASAL (DC) Calcium Gluconate (Calcium Gluconate 1 GM/NS 50 mL (B2)) 50 ML ASDIR PRN IV Calcium Gluconate (Calcium Gluconate 1 GM/NS 50 mL (B2)) 50 ML ASDIR PRN IV Lorazepam (ATIVAN) 1 MG Q4H PRN PRN IV Magnesium Sulfate (MAGNESIUM SULF 2 GM/SWI 50 ML) 50 ML ASDIR PRN IV Potassium Chloride (POTASSIUM CHLORIDE 20 MEQ/100 ML PREMIX) 100 ML ASDIR PRN IV Potassium Chloride (POTASSIUM CHLORIDE 20 MEQ/100 ML PREMIX) 100 ML ASDIR PRN IV Potassium Chloride (POTASSIUM CHLORIDE 20 MEQ/100 ML PREMIX) 100 ML ASDIR PRN IV Potassium Chloride (POTASSIUM CHLORIDE 20 MEQ/100 ML PREMIX) 100 ML ASDIR PRN IV Potassium Phosphate (POTASSIUM PHOSPHATE) 15 MM ASDIR PRN IV (CKD) Sodium Chloride (SODIUM CHLORIDE 0.9%) 100 ML Sodium Phosphate (SODIUM PHOSPHATE) 15 MMOL ASDIR PRN IV Sodium Chloride (SODIUM CHLORIDE 0.9%) 100 ML Sodium Phosphate (SODIUM PHOSPHATE) 20 MMOL ASDIR PRN IV Sodium Chloride (SODIUM CHLORIDE 0.9%) 100 ML Sodium Phosphate (SODIUM PHOSPHATE) 30 MMOL ASDIR PRN IV Sodium Chloride (SODIUM CHLORIDE 0.9%) 100 ML Sterile Water (WATER FOR INJECTION) 10 ML ASDIR PRN IV Ceftriaxone Sodium (cefTRIAXone 1,000 MG VIAL) 1,000 MG Q24H IV Sodium Chloride (SODIUM CHLORIDE 0.9% 10ML) 10 ML Dextrose/Water (DEXTROSE 10%) 125 ML ASDIR PRN IV (CKD) Dextrose/Water (DEXTROSE 10%) 250 ML ASDIR PRN IV (CKD) Dextrose/Water (DEXTROSE 10%) 125 ML ASDIR PRN IV (CKD) Dextrose/Water (DEXTROSE 10%) 250 ML ASDIR PRN IV (CKD) Furosemide (LASIX 40MG INJ) 40 MG BID 9A 5P IV Glucagon (GLUCAGON) 1 MG ASDIR PRN IM Glucagon (GLUCAGON) 1 MG ASDIR PRN IM Insulin Human Lispro (Admelog) 0 AC HS SUBQ Dietitian nutrition assessment The data set between the solid lines has been imported from the dietitian's assessment. BMI Calculated: 45.3 Nutrition related diagnosis: Nutrition diagnosis details: Nutrition problem: Nutrition etiology: Nutrition signs and symptoms: Nutrition prescription: Dietitian name: Assessment completed: Results Findings/Data: Laboratory Tests 10/06 06 Blood Gas Puncture Site RB ABG pH (7.350 - 7.450) 7.479 H ABG pCO2 (35.0 - 45.0 mmHg) 55.5 H ABG pO2 (80.0 mmHg) 83.8 ABG HCO3 (22.0 - 26.0 MMOL/L) 40.3 H ABG O2 Saturation (92.0 - 99.0 %) 96.6 ABG Base Excess (-4.0 - 4.0 MMOL/L) 14.5 H Nahid Test Yes Carboxyhemoglobin (0.0 - 1.5 % THgb) 0.8 Methemoglobin (0.0 - 1.5 %) 0.2 Total Hemoglobin (12.0 - 16.0 g/dL) 12.3 FiO2 (%) 52.0 Laboratory Tests 10/0647 2008 1610 1107 Chemistry POC Glucose (70 - 110 mg/dL) 136 H 156 H 142 H 150 H Radiology data: Recent Impressions: RADIOLOGY - XR CHEST 1 V 10/06 0603 Report Impression - Status: SIGNED Entered: 10/06/2024 0751 IMPRESSION: No significant interval change. Impression By: Karin Chawla M.D. Free Text Obj Notes Free Text Obj Notes: PHYSICAL EXAMINATION General appearance: Arousable AMS 5 L nasal cannula Head/Eyes: atraumatic, normocephalic, PERRL, EOMI ENT: normal ear left, normal ear right, normal nose, normal pharynx Neck: full range of motion, supple/no meningismus Cardiovascular: normal S1/S2, regular rate rhythm Respiratory/chest: Hypoxia decreased breath sounds bilaterally Abdomen: soft, non-tender, normal bowel sounds Genitourinary: deferred Extremities: Bilateral leg edema Musculoskeletal: full range of motion, normal inspection Neuro/KNOWLEDGE MANAGER alert, oriented X 2, CNII-XII intact Skin: Lower extremity chronic changes Psychiatry: AMS Diagnosis, Assessment Plan Free Text DxA P Notes Free text DxA P notes: Acute hypoxic respiratory failure Nasal cannula oxygen Pulmonary consult Decompensated cirrhosis of liver with anasarca and acute liver failure hepatic encephalopathy IV diuresis GI consult Monitor electrolytes and labs Pneumonia -----IV antibiotics Follow cultures hypocalcemia Replace Recheck in a.m. Nephrology consultation Diabetes mellitus type 2 Sliding scale insulin Discussed with Dr. Tamez Monitor closely Discussed with charge nurse 10/02/2024 Acute hypoxic respiratory failure----ICU monitoring, wean nasal cannula, pulmonology following Sepsis with pneumonia on IV antibiotics Bacteremia, blood cultures from other hospital reportedly positive for strep, blood cultures here pending Decompensated cirrhosis of liver with anasarca, GI consulted, on IV Lasix Hepatic encephalopathy on lactulose Alcoholism on CIWA protocol Diabetes mellitus type 2 Ornelas placed by urology 10/03 worsening pulmonary edema [facility] protocol no pain 10/04/2024 Acute hypoxic respiratory failure, 5 L nasal cannula 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 on IV Lasix, status post paracentesis October 03, 2024, 5.6 L removed, albumin given Hepatic encephalopathy on lactulose Alcoholism on CICT protocol Bacteremia from other hospital, reportedly strep, blood cultures here negative, IV Rocephin Diabetes mellitus type 2 Ornelas placed by urology for phimosis Full code Lives at home with son Needing restraints Right PICC line placed Poor prognosis DVT prophylaxis with Lovenox 10/05/2024 Wean O2, continue IV Lasix, IV antibiotics for possible aspiration pneumonia, decrease lactulose, rectal tube in place, follow blood cultures PT when able 10/06 continue lactulose seen in ICU IV lasix monitor creatinine daily abx for aspiration cultures pending at 0936 RPT #:[id number] END OF REPORT [facility] 2024-10-05 13:32:00 [facility] ([facility] Hospitalist Progress Note REPORT#:[id number] REPORT STATUS: Signed REPORT INITIALIZATION DATE:10/05/24 TIME: 1331 PATIENT: ABAD HARRINGTON UNIT #: [id number] ROOM/BED: [place] [id number] : 55 AGE: 69 SEX: M ATTEND: Luisa Vincent MD ADM AUTHOR: Luisa Vincent MD REPT SERVICE DT/TIME: 10/05/24 1332 * ALL edits or amendments must be made on the electronic/computer document * Subjective Chief complaint: Follow-up sepsis bacteremia -----Seen in ICU AMS continues, on restraints 5 L nasal cannula Anasarca Ornelas in place, placed by urology for phimosis PICC line right upper arm ROS cannot be obtained Review of Systems Free Text ROS Notes Free Text ROS Notes: AMS Objective Free Text Obj Notes Free Text Obj Notes: PHYSICAL EXAMINATION General appearance: Arousable AMS 5 L nasal cannula Head/Eyes: atraumatic, normocephalic, PERRL, EOMI ENT: normal ear left, normal ear right, normal nose, normal pharynx Neck: full range of motion, supple/no meningismus Cardiovascular: normal S1/S2, regular rate rhythm Respiratory/chest: Hypoxia decreased breath sounds bilaterally Abdomen: soft, non-tender, normal bowel sounds Genitourinary: deferred Extremities: Bilateral leg edema Musculoskeletal: full range of motion, normal inspection Neuro/KNOWLEDGE MANAGER alert, oriented X 2, CNII-XII intact Skin: Lower extremity chronic changes Psychiatry: AMS Diagnosis, Assessment Plan Free Text DxA P Notes Free text DxA P notes: Acute hypoxic respiratory failure Nasal cannula oxygen Pulmonary consult Decompensated cirrhosis of liver with anasarca IV diuresis GI consult Monitor electrolytes and labs Pneumonia -----IV antibiotics Follow cultures hypocalcemia Replace Recheck in a.m. Nephrology consultation hepatic encephalopathy Lactulose Monitor ammonia Diabetes mellitus type 2 Sliding scale insulin Discussed with Dr. Tamez Monitor closely Discussed with charge nurse 10/02/2024 Acute hypoxic respiratory failure----ICU monitoring, wean nasal cannula, pulmonology following Sepsis with pneumonia on IV antibiotics Bacteremia, blood cultures from other hospital reportedly positive for strep, blood cultures here pending Decompensated cirrhosis of liver with anasarca, GI consulted, on IV Lasix Hepatic encephalopathy on lactulose Alcoholism on CIWA protocol Diabetes mellitus type 2 Ornelas placed by urology 10/03 worsening pulmonary edema ciwa protocol no pain 10/04/2024 Acute hypoxic respiratory failure, 5 L nasal cannula 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 on IV Lasix, status post paracentesis October 03, 2024, 5.6 L removed, albumin given Hepatic encephalopathy on lactulose Alcoholism on CIWA protocol Bacteremia from other hospital, reportedly strep, blood cultures here negative, IV Rocephin Diabetes mellitus type 2 Ornelas placed by urology for phimosis Full code Lives at home with son Needing restraints Right PICC line placed Poor prognosis DVT prophylaxis with Lovenox 10/05/2024 Wean O2, continue IV Lasix, IV antibiotics for possible aspiration pneumonia, decrease lactulose, rectal tube in place, follow blood cultures PT when able at 1333 RPT #:[id number] END OF REPORT [facility] 2024-10-05 10:27:00 [facility]) Pulmonology Progress Note REPORT#:[id number] REPORT STATUS: Signed REPORT INITIALIZATION DATE:10/05/24 TIME: 1026 PATIENT: ABAD HARRINGTON UNIT #: [id number] ROOM/BED: [place] [id number] : 55 AGE: 69 SEX: M ATTEND: Luisa Vincent MD ADM AUTHOR: Fawad Jacobo MD REPT SERVICE DT/TIME: 10/05/24 1027 * ALL edits or amendments must be made on the electronic/computer document * Subjective Chief complaint: AMS. Comments: Pt lethargic at my visit. Librium was discontinued by GI. RN notes he has been congested and desaturated this morning. ABG done shows mixed respiratory acidemia and metabolic alkalosis. He is in no distress at my visit but does not give meaningful history/ROS. RN notes he was able to tell her his name this morning. Objective General VS/I O: Last Documented: Result Date Time Temp 99.2 10/05 0800 Pulse Ox 96 10/05 0701 O2 Delivery Nasal cannula 10/05 07 O2 Flow Rate 4 10/05 0701 B/P 128/71 10/05 0600 B/P Mean 93 10/05 0600 Pulse 109 10/05 0600 Resp 29 10/05 0600 24 hour I O ending at 0700: 10/04 1900 10/05 0700 Intake Total Output Total 2400 1700 Balance -2400 -1700 Number 2 Bowel Movements Output, Urine 2400 1700 PATIENT WEIGHT: Weight (lb): 315 Weight (oz): 11.23 Weight (kg): 143.200 Medications: Active Meds + DC'd Last 24 Hrs Chlordiazepoxide HCl (LIBRIUM) 25 MG Q24H PO Chlordiazepoxide HCl (LIBRIUM) 25 MG Q12H PO (DC) Albuterol/Ipratropium (IPRATR-ALBUTEROL 0.5-3 MG/3 ML) 3 ML RTQ6H NEB Guaifenesin (MUCINEX ER) 600 MG BID PO Lactulose (LACTULOSE) 20 GM Q2H PO (CKD) Sodium Chloride (SODIUM CHLORIDE) 10 ML BID IV Sodium Chloride (SODIUM CHLORIDE) 10 ML ASDIR PRN IV Albumin Human (ALBUMIN HUMAN) 400 ML ONCE ONE IV Dexmedetomidine HCl (PRECEDEX) 400 MCG Q24H IV Sodium Chloride (SODIUM CHLORIDE 0.9%) 96 ML Hydrocodone Bitart/Acetaminophen (NORCO 5/325 TABLET) 1 TAB Q4H PRN PRN PO Enoxaparin Sodium (LOVENOX) 40 MG Q24H SUBQ Folic Acid (FOLIC ACID) 1 MG DAILY PO Multivitamins Therapeutic (THERAGRAN) 1 TAB DAILY PO Mupirocin (BACTROBAN 2% 22 GM OINT) 1 APPLIC BID NASAL Calcium Gluconate (Calcium Gluconate 1 GM/NS 50 mL (B2)) 50 ML ASDIR PRN IV Calcium Gluconate (Calcium Gluconate 1 GM/NS 50 mL (B2)) 50 ML ASDIR PRN IV Lorazepam (ATIVAN) 1 MG Q4H PRN PRN IV Magnesium Sulfate (MAGNESIUM SULF 2 GM/SWI 50 ML) 50 ML ASDIR PRN IV Potassium Chloride (POTASSIUM CHLORIDE 20 MEQ/100 ML PREMIX) 100 ML ASDIR PRN IV Potassium Chloride (POTASSIUM CHLORIDE 20 MEQ/100 ML PREMIX) 100 ML ASDIR PRN IV Potassium Chloride (POTASSIUM CHLORIDE 20 MEQ/100 ML PREMIX) 100 ML ASDIR PRN IV Potassium Chloride (POTASSIUM CHLORIDE 20 MEQ/100 ML PREMIX) 100 ML ASDIR PRN IV Potassium Phosphate (POTASSIUM PHOSPHATE) 15 MM ASDIR PRN IV (CKD) Sodium Chloride (SODIUM CHLORIDE 0.9%) 100 ML Sodium Phosphate (SODIUM PHOSPHATE) 15 MMOL ASDIR PRN IV Sodium Chloride (SODIUM CHLORIDE 0.9%) 100 ML Sodium Phosphate (SODIUM PHOSPHATE) 20 MMOL ASDIR PRN IV Sodium Chloride (SODIUM CHLORIDE 0.9%) 100 ML Sodium Phosphate (SODIUM PHOSPHATE) 30 MMOL ASDIR PRN IV Sodium Chloride (SODIUM CHLORIDE 0.9%) 100 ML Sterile Water (WATER FOR INJECTION) 10 ML ASDIR PRN IV Ceftriaxone Sodium (cefTRIAXone 1,000 MG VIAL) 1,000 MG Q24H IV Sodium Chloride (SODIUM CHLORIDE 0.9% 10ML) 10 ML Dextrose/Water (DEXTROSE 10%) 125 ML ASDIR PRN IV (CKD) Dextrose/Water (DEXTROSE 10%) 250 ML ASDIR PRN IV (CKD) Dextrose/Water (DEXTROSE 10%) 125 ML ASDIR PRN IV (CKD) Dextrose/Water (DEXTROSE 10%) 250 ML ASDIR PRN IV (CKD) Furosemide (LASIX 40MG INJ) 40 MG BID 9A 5P IV Glucagon (GLUCAGON) 1 MG ASDIR PRN IM Glucagon (GLUCAGON) 1 MG ASDIR PRN IM Insulin Human Lispro (Admelog) 0 AC HS SUBQ Physical Exam General appearance: lethargic, respiratory support Head/eyes: atraumatic, normocephalic, PERRL, EOMI, clear cornea, normal conjunctiva/sclera, normal fundi, normal eyelids/periorb. ENT: ENT: normal dentition, normal ear left, normal ear right, normal nose, normal pharynx, normal sinus Neck: full range of motion, non-tender, normal thyroid, supple/no meningismus, no bruit/NL carotids, no JVD, no lymphadenopathy, no masses or swelling Cardiovascular: regular rate rhythm Respiratory/chest: crackles, rhonchi, aerating well, symmetric expansion, no distress Abdomen: soft, non-tender, no distention, no guarding, no mass/organomegaly, no rebound Extremities: edema, moves all, normal capillary refill Musculoskeletal: full range of motion, normal inspection Neuro/KNOWLEDGE MANAGER: alert Skin: dry, intact Lymphatics: axilla normal, inguinal normal, neck normal, no lymphadenopathy Psychiatry: abnl judgment/insight, normal mood Results Findings/Data: Laboratory Tests 10/05/24 035: [Embedded Image Not Available] 10/05/24353: [Embedded Image Not Available] Laboratory Tests 10/05 0909 Blood Gas Puncture Site LR ABG pH (7.350 - 7.450) 7.488 H ABG pCO2 (35.0 - 45.0 mmHg) 48.7 H ABG pO2 (80.0 mmHg) 67.6 L ABG HCO3 (22.0 - 26.0 MMOL/L) 36.1 H ABG O2 Saturation (92.0 - 99.0 %) 93.6 ABG Base Excess (-4.0 - 4.0 MMOL/L) 11.2 H Nahid Test Unable Carboxyhemoglobin (0.0 - 1.5 % THgb) 1.0 Methemoglobin (0.0 - 1.5 %) 0.2 Total Hemoglobin (12.0 - 16.0 g/dL) 12.2 FiO2 (%) 36.0 Laboratory Tests 10/04 10/04 10/04 10/05 10/05 1131 1641 2004 353 035 Chemistry Sodium (136 - 145 mmol/L) 141 Potassium (3.5 - 5.1 mmol/L) 3.3 L Chloride (98 - 107 mmol/L) 101 Carbon Dioxide (20.0 - 31.0 mmol/L) 39.0 H Anion Gap (0 - 20) 4.3 BUN (9 - 23 mg/dL) 14 Creatinine (0.60 - 1.30 mg/dL) 0.75 Estimated Creat Clear (>30 mL/min) 96 Glomerular Filtr Rate (mL/min) 98 Glucose (74 - 106 mg/dL) 153 H POC Glucose (70 - 110 mg/dL) 122 H 122 H 161 H Calcium (8.7 - 10.4 mg/dL) 8.1 L Ammonia (11.0 - 32.0 umol/L) 36 *H Laboratory Tests 10/05 0354 Hematology WBC (4.5 - 11.0 K/mm3) 6.0 RBC (4.40 - 5.90 M/mm3) 3.78 L Hgb (13.0 - 17.0 gm/dL) 11.8 L Hct (36.0 - 48.0 %) 35.9 L MCV (80.0 - 94.0 UM3) 95.0 H MCH (25.5 - 32.5 UUG) 31.2 MCHC (29.0 - 35.5 gm/dL) 32.9 RDW (11.5 - 15.0 %) 16.6 H Plt Count (150 - 400 K/mm3) 173 MPV (7.4 - 10.4 fl) 8.9 Neut % (Auto) (49.0 - 76.0 %) 59.5 Lymph % (Auto) (23.0 - 38.0 %) 20.5 L [place] % (Auto) (1.0 - 10.0 %) 13.9 H Eos % (Auto) (1.0 - 5.0 %) 2.4 Baso % (Auto) (0.0 - 1.0 %) 0.3 Neut # (Auto) (2.4 - 6.3 K/mm3) 3.5 Lymph # (Auto) (1.2 - 4.0 K/mm3) 1.2 [place] # (Auto) (0.0 - 0.6 K/mm3) 0.8 H Eos # (Auto) (0.0 - 0.7 K/MM3) 0.1 Baso # (Auto) (0.0 - 0.2 K/mm3) 0.0 Immature Gran % (0.0 - 0.4 %) 3.4 H Immature Gran # (0.00 - 0.07 x10 3/uL) 0.20 H Radiology data: Recent Impressions: RADIOLOGY - XR CHEST 1 V 10/05 0541 Report Impression - Status: SIGNED Entered: 10/05/2024 0839 IMPRESSION: Interstitial or peribronchial opacity could be seen with mild edema, bronchitis, or viral pneumonia. Impression By: Renee Ponce M.D. Diagnosis, Assessment Plan Free Text A P: 1. Sepsis Suspicious given tachycardia and reported blood culture positive Empiric antibiotics Etiology is unclear -> possibly aspiration pneumonia? 2. Cirrhosis Decompensated GI following Ammonia elevated Lactulose s/p paracentesis 10/03 with removal of 5.6 L 3. Pleural effusion Possible hepatic hydrothorax? Repeat chest x-ray Follow symptoms 4. Hypoxemia Wean oxygen as tolerated 5. Altered mental status/ethanol abuse Hepatic encephalopathy lactulose q2h improving ammonia CIWA protocol 6. Pulmonary infiltrates likely aspiration pneumonia abx cont nebs and Mucinex at 1029 RPT #:[id number] END OF REPORT [facility] 2024-10-05 08:35:00 [facility] Gastroenterology Progress Note REPORT#:[id number] REPORT STATUS: Signed REPORT INITIALIZATION DATE:10/05/24 TIME: 834 PATIENT: ABAD HARRINGTON UNIT #: [id number] ROOM/BED: [place] [id number] : 55 AGE: 69 SEX: M ATTEND: Luisa Vincent MD ADM AUTHOR: Maria Luz Veloz MD REPT SERVICE DT/TIME: 10/05/24 08 * ALL edits or amendments must be made on the electronic/computer document * Subjective Chief complaint: confused Review of Systems All systems rev neg: except as marked Objective General VS/I O: Last Documented: Result Date Time Pulse Ox 96 10/05 701 O2 Delivery Nasal cannula 12/18 0701 O2 Flow Rate 4 10/05 701 B/P 128/71 10/05 600 B/P Mean 93 10/05 600 Pulse 109 10/05 600 Resp 29 10/05 600 Temp 98.2 10/04 2000 24 hour I O ending at 0700: 10/05 0700 10/04 1900 Intake Total Output Total 1700 2400 Balance -1700 -2400 Number 2 Bowel Movements Output, Urine 1700 2400 PATIENT WEIGHT: Weight (lb): 315 Weight (oz): 11.23 Weight (kg): 143.200 Physical Exam General appearance: alert, awake HEENT: anicteric, atraumatic, normocephalic Neck: full range of motion, non-tender, supple/no meningismus Cardiovascular: normal S1/S2, regular rate rhythm Respiratory: decreased breath sounds, symmetric expansion Abdomen: ascites, distended, normal bowel sounds Extremities: moves all Skin: dry, intact Diagnosis, Assessment Plan Free Text A P: 1. Cirrhosis of liver w/ascites will order hep panel, and INR - paracentesis - lactulose, lasix 2. Hepatic Encephalopathy II - ammonia 43 - lactulose 3. Pneumonia - pulmonary consulted 10/03 - low MELDNA score, HCV Ab positive, will need outpatient work for HCV 10/04 - increase lactulose to q2 hr till he wakes up Grade I-II hepatic encephalopathy 10/05 - still confused, stop librium, will use Ativan. decrease lactulose to q8hr sinc ammonia <40 its possible AMS from chronic abuse of ETOH - withrawl vs wernicke's From GI standpoint we will continue to monitor the patient's progress at 0838 RPT #:[id number] END OF REPORT [facility] 2024-10-04 14:26:00 [facility] ([facility] Pulmonology Progress Note REPORT#:[id number] REPORT STATUS: Signed REPORT INITIALIZATION DATE:10/04/24 TIME: 1425 PATIENT: ABAD HARRINGTON UNIT #: [id number] ROOM/BED: [place] [id number] : 55 AGE: 69 SEX: M ATTEND: Luisa Vincent MD ADM AUTHOR: Fawad Jacobo MD REPT SERVICE DT/TIME: 10/04/24 1426 * ALL edits or amendments must be made on the electronic/computer document * Subjective Chief complaint: AMS. Patient reports: Yes: congestion, cough, resting comfortably. No: feeling better, pain, shortness of breath. Nursing reports: Yes: calm, confused, shortness of breath. Comments: He has cough and congestion He is in no distress. He is mildly lethargic but shakes his head "no" when I ask if he feels any better following his paracentesis. Objective General VS/I O: Last Documented: Result Date Time Temp 97.8 10/04 1200 Pulse Ox 91 10/04 0823 O2 Delivery Nasal cannula 10/04 08 O2 Flow Rate 5 10/04 0823 B/P 115/60 10/04 0500 B/P Mean 82 10/04 0500 Pulse 97 10/04 0500 Resp 18 10/04 0300 24 hour I O ending at 0700: 10/03 1900 10/04 0700 Intake Total 43.20 Output Total 6600 1175 Balance -6556.80 -1175 Intake, IV 43.20 Number 1 Bowel Movements Output, 5600 Drainage Output, Urine 1000 1175 PATIENT WEIGHT: Weight (lb): 315 Weight (oz): 11.23 Weight (kg): 143.200 Medications: Active Meds + DC'd Last 24 Hrs Chlordiazepoxide HCl (LIBRIUM) 25 MG Q24H PO Chlordiazepoxide HCl (LIBRIUM) 25 MG Q12H PO Albuterol/Ipratropium (IPRATR-ALBUTEROL 0.5-3 MG/3 ML) 3 ML RTQ6H NEB Guaifenesin (MUCINEX ER) 600 MG BID PO Lactulose (LACTULOSE) 20 GM Q2H PO (CKD) Lidocaine HCl (XYLOCAINE) 5 ML ONCE ONE LOCAL (DC) Sodium Chloride (SODIUM CHLORIDE) 10 ML BID IV Sodium Chloride (SODIUM CHLORIDE) 10 ML ASDIR PRN IV Chlordiazepoxide HCl (LIBRIUM) 25 MG Q8H PO (DC) Albumin Human (ALBUMIN HUMAN) 400 ML ONCE ONE IV Dexmedetomidine HCl (PRECEDEX) 400 MCG Q24H IV Sodium Chloride (SODIUM CHLORIDE 0.9%) 96 ML Hydrocodone Bitart/Acetaminophen (NORCO 5/325 TABLET) 1 TAB Q4H PRN PRN PO Enoxaparin Sodium (LOVENOX) 40 MG Q24H SUBQ Folic Acid (FOLIC ACID) 1 MG DAILY PO Multivitamins Therapeutic (THERAGRAN) 1 TAB DAILY PO Mupirocin (BACTROBAN 2% 22 GM OINT) 1 APPLIC BID NASAL Calcium Gluconate (Calcium Gluconate 1 GM/NS 50 mL (B2)) 50 ML ASDIR PRN IV Calcium Gluconate (Calcium Gluconate 1 GM/NS 50 mL (B2)) 50 ML ASDIR PRN IV Lorazepam (ATIVAN) 1 MG Q4H PRN PRN IV Magnesium Sulfate (MAGNESIUM SULF 2 GM/SWI 50 ML) 50 ML ASDIR PRN IV Potassium Chloride (POTASSIUM CHLORIDE 20 MEQ/100 ML PREMIX) 100 ML ASDIR PRN IV Potassium Chloride (POTASSIUM CHLORIDE 20 MEQ/100 ML PREMIX) 100 ML ASDIR PRN IV Potassium Chloride (POTASSIUM CHLORIDE 20 MEQ/100 ML PREMIX) 100 ML ASDIR PRN IV Potassium Chloride (POTASSIUM CHLORIDE 20 MEQ/100 ML PREMIX) 100 ML ASDIR PRN IV Potassium Phosphate (POTASSIUM PHOSPHATE) 15 MM ASDIR PRN IV (CKD) Sodium Chloride (SODIUM CHLORIDE 0.9%) 100 ML Sodium Phosphate (SODIUM PHOSPHATE) 15 MMOL ASDIR PRN IV Sodium Chloride (SODIUM CHLORIDE 0.9%) 100 ML Sodium Phosphate (SODIUM PHOSPHATE) 20 MMOL ASDIR PRN IV Sodium Chloride (SODIUM CHLORIDE 0.9%) 100 ML Sodium Phosphate (SODIUM PHOSPHATE) 30 MMOL ASDIR PRN IV Sodium Chloride (SODIUM CHLORIDE 0.9%) 100 ML Sterile Water (WATER FOR INJECTION) 10 ML ASDIR PRN IV Ceftriaxone Sodium (cefTRIAXone 1,000 MG VIAL) 1,000 MG Q24H IV Sodium Chloride (SODIUM CHLORIDE 0.9% 10ML) 10 ML Dextrose/Water (DEXTROSE 10%) 125 ML ASDIR PRN IV (CKD) Dextrose/Water (DEXTROSE 10%) 250 ML ASDIR PRN IV (CKD) Dextrose/Water (DEXTROSE 10%) 125 ML ASDIR PRN IV (CKD) Dextrose/Water (DEXTROSE 10%) 250 ML ASDIR PRN IV (CKD) Furosemide (LASIX 40MG INJ) 40 MG BID 9A 5P IV Glucagon (GLUCAGON) 1 MG ASDIR PRN IM Glucagon (GLUCAGON) 1 MG ASDIR PRN IM Insulin Human Lispro (Admelog) 0 AC HS SUBQ Lactulose (LACTULOSE) 20 GM TID PO (DC) Physical Exam General appearance: lethargic, no acute distress Head/eyes: atraumatic, normocephalic, PERRL, EOMI, clear cornea, normal conjunctiva/sclera, normal fundi, normal eyelids/periorb. ENT: ENT: normal dentition, normal ear left, normal ear right, normal nose, normal pharynx, normal sinus Neck: full range of motion, non-tender, normal thyroid, supple/no meningismus, no bruit/NL carotids, no JVD, no lymphadenopathy, no masses or swelling Cardiovascular: regular rate rhythm Respiratory/chest: crackles, rhonchi, aerating well, symmetric expansion, no distress Abdomen: soft, non-tender, no distention, no guarding, no mass/organomegaly, no rebound Extremities: edema, moves all, normal capillary refill Musculoskeletal: full range of motion, normal inspection Neuro/KNOWLEDGE MANAGER: alert Skin: dry, intact Lymphatics: axilla normal, inguinal normal, neck normal, no lymphadenopathy Psychiatry: abnl judgment/insight, normal mood Results Findings/Data: Laboratory Tests 10/04/24 0741: [Embedded Image Not Available] Laboratory Tests 10/03 10/03 10/04 10/04 10/04 1622 2036 0741 0741 0741 Chemistry Sodium (136 - 145 mmol/L) 141 Potassium (3.5 - 5.1 mmol/L) 3.6 Chloride (98 - 107 mmol/L) 103 Carbon Dioxide (20.0 - 31.0 mmol/L) 39.0 H Anion Gap (0 - 20) 2.7 BUN (9 - 23 mg/dL) 18 Creatinine (0.60 - 1.30 mg/dL) 0.60 Glomerular Filtr Rate (mL/min) 104 Glucose (74 - 106 mg/dL) 94 POC Glucose (70 - 110 mg/dL) 98 111 H Calcium (8.7 - 10.4 mg/dL) 7.9 L Total Bilirubin (0.20 - 1.10 mg/dL) 1.10 Direct Bilirubin (0.05 - 0.3 mg/dL) 0.7 H AST (0 - 33 U/L) 33 ALT (10 - 49 U/L) 16 Total Alk Phosphatase (46 - 116 U/L) 116 Ammonia (11.0 - 32.0 umol/L) 38 *H Total Protein (5.7 - 8.2 g/dL) 6.4 Albumin (3.4 - 5.0 g/dL) 2.7 L 10/04 10/04 0838 1131 Chemistry POC Glucose (70 - 110 mg/dL) 97 122 H Radiology data: Recent Impressions: ULTRASOUND - US PARACENTESIS W IMAGE 10/03 1430 Report Impression - Status: SIGNED Entered: 10/03/2024 1621 IMPRESSION: Successful ultrasound guided paracentesis with 5.6 L of fluid removed. Given volume, recommend 25 g IV albumin infusion. Impression By: [email or web address] Liliana Ulrich M.D. RADIOLOGY - XR CHEST 1 V 10/04 0550 Report Impression - Status: SIGNED Entered: 10/04/2024 1334 IMPRESSION: Slight clearing of diffuse infiltrates. Impression By: [email or web address] Liliana Chawla M.D. RADIOLOGY - XR CHEST 1 V 10/04 0950 Report Impression - Status: SIGNED Entered: 10/04/2024 1040 IMPRESSION: 1. Left PICC line tip at mid SVC. 2. Exam otherwise stable. Impression By: MookEFZuri Casas MD Diagnosis, Assessment Plan Free Text A P: 1. Sepsis Suspicious given tachycardia and reported blood culture positive Empiric antibiotics Etiology is unclear -> possibly aspiration pneumonia? Cultures pending 2. Cirrhosis Decompensated GI following Ammonia elevated Lactulose s/p paracentesis 10/03 with removal of 5.6 L 3. Pleural effusion Possible hepatic hydrothorax? Repeat chest x-ray Follow symptoms 4. Hypoxemia Wean oxygen as tolerated 5. Altered mental status/ethanol abuse Hepatic encephalopathy lactulose CIWA protocol 6. Pulmonary infiltrates likely aspiration pneumonia abx add nebs and Mucinex at 1431 RPT #:[id number] END OF REPORT [facility] 2024-10-04 13:50:00 [facility] ([facility]) Gastroenterology Progress Note REPORT#:[id number] REPORT STATUS: Signed REPORT INITIALIZATION DATE:10/04/24 TIME: 1350 PATIENT: ABAD HARRINGTON UNIT #: [id number] ROOM/BED: [place] [id number] : 55 AGE: 69 SEX: M ATTEND: Luisa Vincent MD ADM AUTHOR: Maria Luz Veloz MD REPT SERVICE DT/TIME: 10/04/24 1350 * ALL edits or amendments must be made on the electronic/computer document * Subjective Chief complaint: confused Review of Systems All systems rev neg: except as marked Objective General VS/I O: Last Documented: Result Date Time Temp 97.8 10/04 1200 Pulse Ox 91 10/04 0823 O2 Delivery Nasal cannula 10/04 08 O2 Flow Rate 5 10/04 0823 B/P 115/60 10/04 0500 B/P Mean 82 10/04 0500 Pulse 97 10/04 0500 Resp 18 10/04 0300 24 hour I O ending at 0700: 10/04 0700 10/03 1900 Intake Total 43.20 Output Total 1175 6600 Balance -1175 -6556.80 Intake, IV 43.20 Number 1 Bowel Movements Output, 5600 Drainage Output, Urine 1175 1000 PATIENT WEIGHT: Weight (lb): 315 Weight (oz): 11.23 Weight (kg): 143.200 Physical Exam General appearance: alert, awake HEENT: anicteric, atraumatic, normocephalic Neck: full range of motion, non-tender, supple/no meningismus Cardiovascular: normal S1/S2, regular rate rhythm Respiratory: decreased breath sounds, symmetric expansion Abdomen: ascites, distended, normal bowel sounds Extremities: moves all Skin: dry, intact Diagnosis, Assessment Plan Free Text A P: 1. Cirrhosis of liver w/ascites will order hep panel, and INR - paracentesis - lactulose, lasix 2. Hepatic Encephalopathy II - ammonia 43 - lactulose 3. Pneumonia - pulmonary consulted 10/03 - low MELDNA score, HCV Ab positive, will need outpatient work for HCV 10/04 - increase lactulose to q2 hr till he wakes up Grade I-II hepatic encephalopathy From GI standpoint we will continue to monitor the patient's progress at 1351 RPT #:[id number] END OF REPORT [facility] 2024-10-04 09:50:00 [facility] ([facility]) Hospitalist Progress Note REPORT#:[id number] REPORT STATUS: Signed REPORT INITIALIZATION DATE:10/04/24 TIME: 949 PATIENT: ABAD HARRINGTON UNIT #: [id number] ROOM/BED: [place] [id number] : 55 AGE: 69 SEX: M ATTEND: Luisa Vincent MD ADM AUTHOR: Luisa Vincent MD REPT SERVICE DT/TIME: 10/04/24 0950 * ALL edits or amendments must be made on the electronic/computer document * Subjective Chief complaint: Follow-up sepsis bacteremia -----Seen in ICU AMS continues, on restraints 5 L nasal cannula Anasarca Ornelas in place, placed by urology for phimosis PICC line placed today right upper arm ROS cannot be obtained Review of Systems Free Text ROS Notes Free Text ROS Notes: AMS Objective General VS/I O: Vital Signs: Date Time Temp Pulse Resp B/P B/P Pulse O2 O2 Flow FiO2 Mean Ox Delivery Rate 10/04 0823 91 Nasal 5 cannula 10/04 0500 97 115/60 82 100 10/04 0400 97 112/62 83 100 10/04 0300 96 18 115/63 83 100 10/04 0200 102 20 128/74 93 90 10/04 0100 101 27 123/69 89 96 10/04 0000 36.7 10/04 0000 97 20 120/64 85 94 10/03 2300 99 22 118/59 82 97 10/03 2200 99 20 121/58 84 10/03 2149 90 10/03 2100 101 14 115/56 79 10/03 2030 98 113/59 80 91 10/03 2007 92 Nasal 4 cannula 10/03 2000 36.7 10/03 2000 Nasal cannula 10/03 2000 93 111/53 77 92 10/03 1930 91 113/56 80 92 10/03 1900 92 117/58 82 91 10/03 1600 36.2 24 hour I O ending at 0700: 10/03 1900 10/04 0700 Intake Total 43.20 Output Total 6600 1175 [facility] -6556.80 -1175 Intake, IV 43.20 Number 1 Bowel Movements Output, 5600 Drainage Output, Urine 1000 1175 PATIENT WEIGHT: Weight (lb): 315 Weight (oz): 11.23 Weight (kg): 143.200 Results Findings/Data: Laboratory Tests 10/03 10/03 10/03 10/04 1109 1622 2036 0838 Chemistry POC Glucose (70 - 110 mg/dL) 88 98 111 H 97 Radiology data: Recent Impressions: ULTRASOUND - US PARACENTESIS W IMAGE 10/03 1430 Report Impression - Status: SIGNED Entered: 10/03/2024 1621 IMPRESSION: Successful ultrasound guided paracentesis with 5.6 L of fluid removed. Given volume, recommend 25 g IV albumin infusion. Impression By: [email or web address] Liliana Ulrich M.D. Free Text Obj Notes Free Text Obj Notes: PHYSICAL EXAMINATION General appearance: Arousable AMS 5 L nasal cannula Head/Eyes: atraumatic, normocephalic, PERRL, EOMI ENT: normal ear left, normal ear right, normal nose, normal pharynx Neck: full range of motion, supple/no meningismus Cardiovascular: normal S1/S2, regular rate rhythm Respiratory/chest: Hypoxia decreased breath sounds bilaterally Abdomen: soft, non-tender, normal bowel sounds Genitourinary: deferred Extremities: Bilateral leg edema Musculoskeletal: full range of motion, normal inspection Neuro/KNOWLEDGE MANAGER alert, oriented X 2, CNII-XII intact Skin: Lower extremity chronic changes Psychiatry: AMS Diagnosis, Assessment Plan Free Text DxA P Notes Free text DxA P notes: Acute hypoxic respiratory failure Nasal cannula oxygen Pulmonary consult Decompensated cirrhosis of liver with anasarca IV diuresis GI consult Monitor electrolytes and labs Pneumonia -----IV antibiotics Follow cultures hypocalcemia Replace Recheck in a.m. Nephrology consultation hepatic encephalopathy Lactulose Monitor ammonia Diabetes mellitus type 2 Sliding scale insulin Discussed with Dr. Tamez Monitor closely Discussed with charge nurse 10/02/2024 Acute hypoxic respiratory failure----ICU monitoring, wean nasal cannula, pulmonology following Sepsis with pneumonia on IV antibiotics Bacteremia, blood cultures from other hospital reportedly positive for strep, blood cultures here pending Decompensated cirrhosis of liver with anasarca, GI consulted, on IV Lasix Hepatic encephalopathy on lactulose Alcoholism on CIWA protocol Diabetes mellitus type 2 Ornelas placed by urology 10/03 worsening pulmonary edema ciwa protocol no pain 10/04/2024 Acute hypoxic respiratory failure, 5 L nasal cannula 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 on IV Lasix, status post paracentesis October 03, 2024, 5.6 L removed, albumin given Hepatic encephalopathy on lactulose Alcoholism on [facility] protocol Bacteremia from other hospital, reportedly strep, blood cultures here negative, IV Rocephin Diabetes mellitus type 2 Ornelas placed by urology for phimosis Full code Lives at home with son Needing restraints Right PICC line placed Poor prognosis DVT prophylaxis with Lovenox at 0952 RPT #:[id number] END OF REPORT [facility] 2024-10-03 21:13:00 [facility] ([facility] Hospitalist Progress Note REPORT#:[id number] REPORT STATUS: Signed REPORT INITIALIZATION DATE:10/03/24 TIME: 2112 PATIENT: ABAD HARRINGTON UNIT #: [id number] ROOM/BED: [place] [id number] : 55 AGE: 69 SEX: M ATTEND: Luisa Vincent MD ADM AUTHOR: Ana María Velasquez MD REPT SERVICE DT/TIME: 10/03/242112 * ALL edits or amendments must be made on the electronic/computer document * Subjective Chief complaint: Follow-up sepsis bacteremia -----Seen in ICU AMS 4 L nasal cannula Anasarca Ornelas in place ROS cannot be obtained Review of Systems Free Text ROS Notes Free Text ROS Notes: AMS Objective General VS/I O: Vital Signs: Date Time Temp Pulse Resp B/P B/P Pulse O2 O2 Flow FiO2 Mean Ox Delivery Rate 10/03 2030 98 113/59 80 91 10/03 2007 92 Nasal 4 cannula 10/03 2000 36.7 10/03 2000 Nasal cannula 10/03 2000 93 111/53 77 92 10/03 1930 91 113/56 80 92 10/03 1900 92 117/58 82 91 10/03 1600 36.2 10/03 0800 35.8 10/03 0800 Nasal 4 cannula 10/03 0741 97 Nasal 4 cannula 10/03 0600 77 25 94/53 72 93 10/03 0531 107/67 10/03 0531 76 17 78 96 10/03 0500 75 18 91/53 67 98 10/03 0401 74 11 80/45 58 100 10/03 0400 36.6 10/03 0331 72 12 82/54 64 94 10/03 0300 74 12 90/55 68 97 10/03 0230 74 12 85/53 64 97 10/03 0200 75 12 85/51 63 97 10/03 0130 76 12 85/50 62 97 10/03 0100 77 12 85/53 65 97 10/03 0030 78 11 87/50 63 96 10/03 0000 78 12 83/52 62 96 10/02 2354 Nasal 4 cannula 10/02 2347 35.8 10/02 2330 86/54 10/02 2329 79 12 97 10/02 2300 79 13 85/51 64 97 10/02 2230 79 12 82/51 62 97 10/02 2200 80 18 93/54 68 96 10/02 2130 80 11 78/53 61 95 24 hour I O ending at 0700: 10/03 0700 10/02 1900 Intake Total 163.00 Output Total 850 2401.0 Balance -687.00 -2401.0 Intake, IV 43.00 Intake, Oral 120 Output, Urine 850 2401.0 PATIENT WEIGHT: Weight (lb): 315 Weight (oz): 11.23 Weight (kg): 143.200 Medications: Active Meds + DC'd Last 24 Hrs Chlordiazepoxide HCl (LIBRIUM) 25 MG Q24H PO Chlordiazepoxide HCl (LIBRIUM) 25 MG Q12H PO Chlordiazepoxide HCl (LIBRIUM) 25 MG Q8H PO Albumin Human (ALBUMIN HUMAN) 400 ML ONCE ONE IV Chlordiazepoxide HCl (LIBRIUM) 25 MG Q6H PO (DC) Dexmedetomidine HCl (PRECEDEX) 400 MCG Q24H IV Sodium Chloride (SODIUM CHLORIDE 0.9%) 96 ML Hydrocodone Bitart/Acetaminophen (NORCO 5/325 TABLET) 1 TAB Q4H PRN PRN PO Enoxaparin Sodium (LOVENOX) 40 MG Q24H SUBQ Folic Acid (FOLIC ACID) 1 MG DAILY PO Multivitamins Therapeutic (THERAGRAN) 1 TAB DAILY PO Mupirocin (BACTROBAN 2% 22 GM OINT) 1 APPLIC BID NASAL Calcium Gluconate (Calcium Gluconate 1 GM/NS 50 mL (B2)) 50 ML ASDIR PRN IV Calcium Gluconate (Calcium Gluconate 1 GM/NS 50 mL (B2)) 50 ML ASDIR PRN IV Lorazepam (ATIVAN) 1 MG Q4H PRN PRN IV Magnesium Sulfate (MAGNESIUM SULF 2 GM/SWI 50 ML) 50 ML ASDIR PRN IV Potassium Chloride (POTASSIUM CHLORIDE 20 MEQ/100 ML PREMIX) 100 ML ASDIR PRN IV Potassium Chloride (POTASSIUM CHLORIDE 20 MEQ/100 ML PREMIX) 100 ML ASDIR PRN IV Potassium Chloride (POTASSIUM CHLORIDE 20 MEQ/100 ML PREMIX) 100 ML ASDIR PRN IV Potassium Chloride (POTASSIUM CHLORIDE 20 MEQ/100 ML PREMIX) 100 ML ASDIR PRN IV Potassium Phosphate (POTASSIUM PHOSPHATE) 15 MM ASDIR PRN IV (CKD) Sodium Chloride (SODIUM CHLORIDE 0.9%) 100 ML Sodium Phosphate (SODIUM PHOSPHATE) 15 MMOL ASDIR PRN IV Sodium Chloride (SODIUM CHLORIDE 0.9%) 100 ML Sodium Phosphate (SODIUM PHOSPHATE) 20 MMOL ASDIR PRN IV Sodium Chloride (SODIUM CHLORIDE 0.9%) 100 ML Sodium Phosphate (SODIUM PHOSPHATE) 30 MMOL ASDIR PRN IV Sodium Chloride (SODIUM CHLORIDE 0.9%) 100 ML Sterile Water (WATER FOR INJECTION) 10 ML ASDIR PRN IV Ceftriaxone Sodium (cefTRIAXone 1,000 MG VIAL) 1,000 MG Q24H IV Sodium Chloride (SODIUM CHLORIDE 0.9% 10ML) 10 ML Dextrose/Water (DEXTROSE 10%) 125 ML ASDIR PRN IV (CKD) Dextrose/Water (DEXTROSE 10%) 250 ML ASDIR PRN IV (CKD) Dextrose/Water (DEXTROSE 10%) 125 ML ASDIR PRN IV (CKD) Dextrose/Water (DEXTROSE 10%) 250 ML ASDIR PRN IV (CKD) Furosemide (LASIX 40MG INJ) 40 MG BID 9A 5P IV Glucagon (GLUCAGON) 1 MG ASDIR PRN IM Glucagon (GLUCAGON) 1 MG ASDIR PRN IM Insulin Human Lispro (Admelog) 0 AC HS SUBQ Lactulose (LACTULOSE) 20 GM TID PO Dietitian nutrition assessment The data set between the solid lines has been imported from the dietitian's assessment. BMI Calculated: 45.3 Nutrition related diagnosis: Nutrition diagnosis details: Nutrition problem: Nutrition etiology: Nutrition signs and symptoms: Nutrition prescription: Dietitian name: Assessment completed: Results Findings/Data: Laboratory Tests 10/03 1622 1109 0748 0527 Chemistry Sodium (136 - 145 mmol/L) 141 Potassium (3.5 - 5.1 mmol/L) 3.9 Chloride (98 - 107 mmol/L) 105 Carbon Dioxide (20.0 - 31.0 mmol/L) 36.0 H Anion Gap (0 - 20) 4.0 BUN (9 - 23 mg/dL) 22 Creatinine (0.60 - 1.30 mg/dL) 0.74 Glomerular Filtr Rate (mL/min) 98 Glucose (74 - 106 mg/dL) 87 POC Glucose (70 - 110 mg/dL) 111 H 98 88 77 Calcium (8.7 - 10.4 mg/dL) 8.4 L Total Bilirubin (0.20 - 1.10 mg/dL) 1.10 AST (0 - 33 U/L) 43 H ALT (10 - 49 U/L) 22 Total Alk Phosphatase (46 - 116 U/L) 125 H Total Protein (5.7 - 8.2 g/dL) 6.5 Albumin (3.4 - 5.0 g/dL) 2.6 L Laboratory Tests 10/03 527 Coagulation INR (0.89 - 1.14) 1.4 H PT Patient/Control Mix (9.9 - 12.8 SECONDS) 15.0 H Laboratory Tests 10/03 05 Hematology WBC (4.5 - 11.0 K/mm3) 5.7 RBC (4.40 - 5.90 M/mm3) 3.55 L Hgb (13.0 - 17.0 gm/dL) 11.1 L Hct (36.0 - 48.0 %) 34.6 L MCV (80.0 - 94.0 UM3) 97.5 H MCH (25.5 - 32.5 UUG) 31.3 MCHC (29.0 - 35.5 gm/dL) 32.1 RDW (11.5 - 15.0 %) 17.4 H Plt Count (150 - 400 K/mm3) 144 L MPV (7.4 - 10.4 fl) 8.7 Neut % (Auto) (49.0 - 76.0 %) 63.2 Lymph % (Auto) (23.0 - 38.0 %) 17.5 L [place] % (Auto) (1.0 - 10.0 %) 12.9 H Eos % (Auto) (1.0 - 5.0 %) 3.9 Baso % (Auto) (0.0 - 1.0 %) 0.9 Neut # (Auto) (2.4 - 6.3 K/mm3) 3.6 Lymph # (Auto) (1.2 - 4.0 K/mm3) 1.0 L [place] # (Auto) (0.0 - 0.6 K/mm3) 0.7 H Eos # (Auto) (0.0 - 0.7 K/MM3) 0.2 Baso # (Auto) (0.0 - 0.2 K/mm3) 0.1 Absolute Nucleated RBC (0.00 - 0.01 X10 3uL) 0.00 Immature Gran % (0.0 - 0.4 %) 1.6 H Nucleated RBC % (0.0 - 0.1 %) 0.0 Immature Gran # (0.00 - 0.07 x10 3/uL) 0.09 H Laboratory Tests 10/03 527 Serology Hepatitis A IgM Ab (NON REACT. INDEX) NON REACTIVE Hep Bs Antigen (NonReactive INDEX) NON REACTIVE Hep B Core IgM Ab (NON REACT. INDEX) NON REACTIVE Hepatitis C Antibody (NON REACT. INDEX) REACTIVE H Radiology data: Recent Impressions: RADIOLOGY - XR CHEST 1 V 10/03 558 Report Impression - Status: SIGNED Entered: 10/03/2024 0902 impression: Compared to prior study, there is mild worsening of bibasilar hazy airspace opacities and diffuse interstitial opacities, which may represent mild pulmonary edema (mild CHF pattern) and/or multifocal pneumonia. Decrease lung volumes, with probable superimposed mild to moderate bibasilar atelectasis, left greater than right. There are small bilateral pleural effusions. No pneumothorax. Cardiomegaly and mediastinal silhouettes are stable. No acute osseous abnormality. Impression By: [email or web address] - Shubham Ramirez D.O. ULTRASOUND - US PARACENTESIS W IMAGE 10/03 1430 Report Impression - Status: SIGNED Entered: 10/03/2024 1621 IMPRESSION: Successful ultrasound guided paracentesis with 5.6 L of fluid removed. Given volume, recommend 25 g IV albumin infusion. Impression By: [email or web address] - Emmanuel Ulrich M.D. Free Text Obj Notes Free Text Obj Notes: PHYSICAL EXAMINATION General appearance: Arousable AMS Head/Eyes: atraumatic, normocephalic, PERRL, EOMI ENT: normal ear left, normal ear right, normal nose, normal pharynx Neck: full range of motion, supple/no meningismus Cardiovascular: normal S1/S2, regular rate rhythm Respiratory/chest: Hypoxia decreased breath sounds bilaterally Abdomen: soft, non-tender, normal bowel sounds Genitourinary: deferred Extremities: Bilateral leg edema Musculoskeletal: full range of motion, normal inspection Neuro/KNOWLEDGE MANAGER alert, oriented X 2, CNII-XII intact Skin: Lower extremity chronic changes Psychiatry: AMS Diagnosis, Assessment Plan Free Text DxA P Notes Free text DxA P notes: Acute hypoxic respiratory failure Nasal cannula oxygen Pulmonary consult Decompensated cirrhosis of liver with anasarca IV diuresis GI consult Monitor electrolytes and labs Pneumonia -----IV antibiotics Follow cultures hypocalcemia Replace Recheck in a.m. Nephrology consultation hepatic encephalopathy Lactulose Monitor ammonia Diabetes mellitus type 2 Sliding scale insulin Discussed with Dr. Tamez Monitor closely Discussed with charge nurse 10/02/2024 Acute hypoxic respiratory failure----ICU monitoring, wean nasal cannula, pulmonology following Sepsis with pneumonia on IV antibiotics Bacteremia, blood cultures from other hospital reportedly positive for strep, blood cultures here pending Decompensated cirrhosis of liver with anasarca, GI consulted, on IV Lasix Hepatic encephalopathy on lactulose Alcoholism on CIWA protocol Diabetes mellitus type 2 Ornelas placed by urology 10/03 worsening pulmonary edema ciwa protocol no pain at 2115 RPT #:[id number] END OF REPORT [facility] 2024-10-03 16:33:00 [facility] ([facility]) Pulmonology Progress Note REPORT#:[id number] REPORT STATUS: Signed REPORT INITIALIZATION DATE:10/03/24 TIME: 163 PATIENT: ABAD HARRINGTON UNIT #: [id number] ROOM/BED: [place] [id number] : 55 AGE: 69 SEX: M ATTEND: Luisa Vincent MD ADM AUTHOR: Fawad Jacobo MD REPT SERVICE DT/TIME: 10/03/24 1633 * ALL edits or amendments must be made on the electronic/computer document * Subjective Chief complaint: same Patient reports: Yes: resting comfortably. No: congestion, cough, shortness of breath. Nursing reports: Yes: bed ridden, calm. No: complaints, agitated, shortness of breath. Comments: Pt awake and calm. He is in no distress. Seems slightly confused. Remains on Precedex 0.1. He is hypotensive with SBP in the 90s. ROS negative for f/c, n/v. Objective General VS/I O: Last Documented: Result Date Time Temp 96.4 10/03 0800 O2 Delivery Nasal cannula 10/03 0800 O2 Flow Rate 4 10/03 0800 Pulse Ox 97 10/03 0741 B/P 94/53 10/03 0600 B/P Mean 72 10/03 06 Pulse 77 10/03 0600 Resp 25 10/03 0600 24 hour I O ending at 0700: 10/02 1900 10/03 0700 Intake Total 163.00 Output Total 2401.0 850 Balance -2401.0 -687.00 Intake, IV 43.00 Intake, Oral 120 Output, Urine 2401.0 850 PATIENT WEIGHT: Weight (lb): 315 Weight (oz): 11.23 Weight (kg): 143.200 Medications: Active Meds + DC'd Last 24 Hrs Chlordiazepoxide HCl (LIBRIUM) 25 MG Q24H PO Chlordiazepoxide HCl (LIBRIUM) 25 MG Q12H PO Chlordiazepoxide HCl (LIBRIUM) 25 MG Q8H PO Albumin Human (ALBUMIN HUMAN) 400 ML ONCE ONE IV Chlordiazepoxide HCl (LIBRIUM) 25 MG Q6H PO (DC) Dexmedetomidine HCl (PRECEDEX) 400 MCG Q24H IV Sodium Chloride (SODIUM CHLORIDE 0.9%) 96 ML Hydrocodone Bitart/Acetaminophen (NORCO 5/325 TABLET) 1 TAB Q4H PRN PRN PO Enoxaparin Sodium (LOVENOX) 40 MG Q24H SUBQ Folic Acid (FOLIC ACID) 1 MG DAILY PO Multivitamins Therapeutic (THERAGRAN) 1 TAB DAILY PO Mupirocin (BACTROBAN 2% 22 GM OINT) 1 APPLIC BID NASAL Calcium Gluconate (Calcium Gluconate 1 GM/NS 50 mL (B2)) 50 ML ASDIR PRN IV Calcium Gluconate (Calcium Gluconate 1 GM/NS 50 mL (B2)) 50 ML ASDIR PRN IV Lorazepam (ATIVAN) 1 MG Q4H PRN PRN IV Magnesium Sulfate (MAGNESIUM SULF 2 GM/SWI 50 ML) 50 ML ASDIR PRN IV Potassium Chloride (POTASSIUM CHLORIDE 20 MEQ/100 ML PREMIX) 100 ML ASDIR PRN IV Potassium Chloride (POTASSIUM CHLORIDE 20 MEQ/100 ML PREMIX) 100 ML ASDIR PRN IV Potassium Chloride (POTASSIUM CHLORIDE 20 MEQ/100 ML PREMIX) 100 ML ASDIR PRN IV Potassium Chloride (POTASSIUM CHLORIDE 20 MEQ/100 ML PREMIX) 100 ML ASDIR PRN IV Potassium Phosphate (POTASSIUM PHOSPHATE) 15 MM ASDIR PRN IV (CKD) Sodium Chloride (SODIUM CHLORIDE 0.9%) 100 ML Sodium Phosphate (SODIUM PHOSPHATE) 15 MMOL ASDIR PRN IV Sodium Chloride (SODIUM CHLORIDE 0.9%) 100 ML Sodium Phosphate (SODIUM PHOSPHATE) 20 MMOL ASDIR PRN IV Sodium Chloride (SODIUM CHLORIDE 0.9%) 100 ML Sodium Phosphate (SODIUM PHOSPHATE) 30 MMOL ASDIR PRN IV Sodium Chloride (SODIUM CHLORIDE 0.9%) 100 ML Sterile Water (WATER FOR INJECTION) 10 ML ASDIR PRN IV Ceftriaxone Sodium (cefTRIAXone 1,000 MG VIAL) 1,000 MG Q24H IV Sodium Chloride (SODIUM CHLORIDE 0.9% 10ML) 10 ML Dextrose/Water (DEXTROSE 10%) 125 ML ASDIR PRN IV (CKD) Dextrose/Water (DEXTROSE 10%) 250 ML ASDIR PRN IV (CKD) Dextrose/Water (DEXTROSE 10%) 125 ML ASDIR PRN IV (CKD) Dextrose/Water (DEXTROSE 10%) 250 ML ASDIR PRN IV (CKD) Furosemide (LASIX 40MG INJ) 40 MG BID 9A 5P IV Glucagon (GLUCAGON) 1 MG ASDIR PRN IM Glucagon (GLUCAGON) 1 MG ASDIR PRN IM Insulin Human Lispro (Admelog) 0 AC HS SUBQ Lactulose (LACTULOSE) 20 GM TID PO Physical Exam General appearance: sedated (lightly ), no acute distress, pleasant Head/eyes: atraumatic, normocephalic, PERRL, EOMI, clear cornea, normal conjunctiva/sclera, normal fundi, normal eyelids/periorb. ENT: ENT: normal dentition, normal ear left, normal ear right, normal nose, normal pharynx, normal sinus Neck: full range of motion, non-tender, normal thyroid, supple/no meningismus, no bruit/NL carotids, no JVD, no lymphadenopathy, no masses or swelling Cardiovascular: regular rate rhythm Respiratory/chest: crackles, aerating well, symmetric expansion, no distress Abdomen: soft, non-tender, no distention, no guarding, no mass/organomegaly, no rebound Extremities: edema, moves all, normal capillary refill Musculoskeletal: full range of motion, normal inspection Neuro/KNOWLEDGE MANAGER: alert Skin: dry, intact Lymphatics: axilla normal, inguinal normal, neck normal, no lymphadenopathy Psychiatry: abnl judgment/insight, acute psychosis Results Findings/Data: Laboratory Tests 10/03/24 0527: [Embedded Image Not Available] Laboratory Tests 10/02 0527 7235 1109 Chemistry Sodium (136 - 145 mmol/L) 141 Potassium (3.5 - 5.1 mmol/L) 3.9 Chloride (98 - 107 mmol/L) 105 Carbon Dioxide (20.0 - 31.0 mmol/L) 36.0 H Anion Gap (0 - 20) 4.0 BUN (9 - 23 mg/dL) 22 Creatinine (0.60 - 1.30 mg/dL) 0.74 Glomerular Filtr Rate (mL/min) 98 Glucose (74 - 106 mg/dL) 87 POC Glucose (70 - 110 mg/dL) 138 H 77 88 Calcium (8.7 - 10.4 mg/dL) 8.4 L Total Bilirubin (0.20 - 1.10 mg/dL) 1.10 AST (0 - 33 U/L) 43 H ALT (10 - 49 U/L) 22 Total Alk Phosphatase (46 - 116 U/L) 125 H Total Protein (5.7 - 8.2 g/dL) 6.5 Albumin (3.4 - 5.0 g/dL) 2.6 L Laboratory Tests 10/03 0527 Coagulation INR (0.89 - 1.14) 1.4 H PT Patient/Control Mix (9.9 - 12.8 SECONDS) 15.0 H Laboratory Tests 10/03 0527 Hematology WBC (4.5 - 11.0 K/mm3) 5.7 RBC (4.40 - 5.90 M/mm3) 3.55 L Hgb (13.0 - 17.0 gm/dL) 11.1 L Hct (36.0 - 48.0 %) 34.6 L MCV (80.0 - 94.0 UM3) 97.5 H MCH (25.5 - 32.5 UUG) 31.3 MCHC (29.0 - 35.5 gm/dL) 32.1 RDW (11.5 - 15.0 %) 17.4 H Plt Count (150 - 400 K/mm3) 144 L MPV (7.4 - 10.4 fl) 8.7 Neut % (Auto) (49.0 - 76.0 %) 63.2 Lymph % (Auto) (23.0 - 38.0 %) 17.5 L [place] % (Auto) (1.0 - 10.0 %) 12.9 H Eos % (Auto) (1.0 - 5.0 %) 3.9 Baso % (Auto) (0.0 - 1.0 %) 0.9 Neut # (Auto) (2.4 - 6.3 K/mm3) 3.6 Lymph # (Auto) (1.2 - 4.0 K/mm3) 1.0 L [place] # (Auto) (0.0 - 0.6 K/mm3) 0.7 H Eos # (Auto) (0.0 - 0.7 K/MM3) 0.2 Baso # (Auto) (0.0 - 0.2 K/mm3) 0.1 Absolute Nucleated RBC (0.00 - 0.01 X10 3uL) 0.00 Immature Gran % (0.0 - 0.4 %) 1.6 H Nucleated RBC % (0.0 - 0.1 %) 0.0 Immature Gran # (0.00 - 0.07 x10 3/uL) 0.09 H Laboratory Tests 10/03 05 Serology Hepatitis A IgM Ab (NON REACT. INDEX) NON REACTIVE Hep Bs Antigen (NonReactive INDEX) NON REACTIVE Hep B Core IgM Ab (NON REACT. INDEX) NON REACTIVE Hepatitis C Antibody (NON REACT. INDEX) REACTIVE H Radiology data: Recent Impressions: RADIOLOGY - XR CHEST 1 V 10/03 0558 Report Impression - Status: SIGNED Entered: 10/03/2024 0902 impression: Compared to prior study, there is mild worsening of bibasilar hazy airspace opacities and diffuse interstitial opacities, which may represent mild pulmonary edema (mild CHF pattern) and/or multifocal pneumonia. Decrease lung volumes, with probable superimposed mild to moderate bibasilar atelectasis, left greater than right. There are small bilateral pleural effusions. No pneumothorax. Cardiomegaly and mediastinal silhouettes are stable. No acute osseous abnormality. Impression By: [email or web address] - Shubham Ramirez D.O. ULTRASOUND - US PARACENTESIS W IMAGE 10/03 1430 Report Impression - Status: SIGNED Entered: 10/03/2024 1621 IMPRESSION: Successful ultrasound guided paracentesis with 5.6 L of fluid removed. Given volume, recommend 25 g IV albumin infusion. Impression By: [email or web address] - Emmanuel Ulrich M.D. Diagnosis, Assessment Plan Free Text A P: 1. Sepsis Suspicious given tachycardia and reported blood culture positive Empiric antibiotics Etiology is unclear Cultures pending 2. Cirrhosis Decompensated GI following Ammonia elevated Lactulose paracentesis 10/03 with removal of 5.6 L -> hypotensive pre- and post- procedure , so administer albumin 3. Pleural effusion Possible hepatic hydrothorax? Repeat chest x-ray Follow symptoms 4. Hypoxemia Wean oxygen as tolerated 5. Altered mental status Hepatic encephalopathy? Continue to monitor closely 6. Delirium tremens? Tachycardia History of alcohol use Cont Precedex/CIWA CIWA protocol Critically ill The patient is at risk for further deterioration 35 minutes at bedside evaluating patient, updating chart, discussed with RN RT and writing orders for transfer. Orders: Procedure Date/time Status HEPATIC FUNCTION PANEL 10/04 0500 Active AMMONIA 10/04 0500 Active at 1637 RPT #:[id number] END OF REPORT [facility] 2024-10-03 12:59:00 [facility] ([facility] Gastroenterology Progress Note REPORT#:[id number] REPORT STATUS: Signed REPORT INITIALIZATION DATE:10/03/24 TIME: 1258 PATIENT: ABAD HARRINGTON UNIT #: [id number] ROOM/BED: [place] [address] : 55 AGE: 69 SEX: M ATTEND: Luisa Vincent MD ADM AUTHOR: Maria Luz Veloz MD REPT SERVICE DT/TIME: 10/03/24 1259 * ALL edits or amendments must be made on the electronic/computer document * Subjective Chief complaint: edema and abdominal distention confused Review of Systems All systems rev neg: except as marked Objective General VS/I O: Last Documented: Result Date Time Temp 96.4 10/03 0800 O2 Delivery Nasal cannula 10/03 0800 O2 Flow Rate 4 10/03 0800 Pulse Ox 97 10/03 0741 B/P 94/53 10/03 0600 B/P Mean 72 10/03 0600 Pulse 77 10/03 0600 Resp 25 10/03 0600 24 hour I O ending at 0700: 10/03 0700 10/02 1900 Intake Total 163.00 Output Total 850 2401.0 Balance -687.00 -2401.0 Intake, IV 43.00 Intake, Oral 120 Output, Urine 850 2401.0 PATIENT WEIGHT: Weight (lb): 315 Weight (oz): 11.23 Weight (kg): 143.200 Physical Exam General appearance: confused, alert, awake HEENT: anicteric, atraumatic, normocephalic Neck: full range of motion, non-tender, supple/no meningismus Cardiovascular: normal S1/S2, regular rate rhythm Respiratory: decreased breath sounds, symmetric expansion Abdomen: ascites, distended, normal bowel sounds Extremities: moves all Skin: dry, intact Diagnosis, Assessment Plan Free Text A P: 1. Cirrhosis of liver w/ascites will order hep panel, and INR - paracentesis - lactulose, lasix 2. Hepatic Encephalopathy II - ammonia 43 - lactulose 3. Pneumonia - pulmonary consulted 10/03 - low MELDNA score, HCV Ab positive, will need outpatient work for HCV From GI standpoint we will continue to monitor the patient's progress at 1301 RPT #:[id number] END OF REPORT [facility] 2024-10-02 15:16:00 [facility] ([facility] Pulmonology Progress Note REPORT#:[id number] REPORT STATUS: Signed REPORT INITIALIZATION DATE:10/02/24 TIME: 1515 PATIENT: ABAD HARRINGTON UNIT #: [id number] ROOM/BED: [place] [id number] : 55 AGE: 69 SEX: M ATTEND: Luisa Vincent MD ADM AUTHOR: Arsh Tamez MD REPT SERVICE DT/TIME: 10/02/241515 * ALL edits or amendments must be made on the electronic/computer document * Subjective Chief complaint: same Comments: More confused Tachycardic History unobtainable Status post Ornelas placement ROS is unobtainable Objective General VS/I O: Last Documented: Result Date Time Pulse Ox 81 10/02 1400 B/P 145/63 10/02 1400 B/P Mean 91 10/02 1400 Pulse 109 10/02 1400 Resp 12 10/02 1400 Temp 98.6 10/02 1200 O2 Delivery Nasal cannula 10/02 0931 O2 Flow Rate 4 10/02 0931 24 hour I O ending at 0700: 10/01 1900 10/02 0700 Intake Total 650.00 Output Total 1760 1925 Balance -1110.00 -1925 Intake, IV 150.00 Intake, Oral 500 Number 2 Bowel Movements Output, Urine 1760 1925 PATIENT WEIGHT: Weight (lb): 315 Weight (oz): 11.23 Weight (kg): 143.200 Medications: Active Meds + DC'd Last 24 Hrs Chlordiazepoxide HCl (LIBRIUM) 25 MG Q24H PO Chlordiazepoxide HCl (LIBRIUM) 25 MG Q12H PO Chlordiazepoxide HCl (LIBRIUM) 25 MG Q8H PO Chlordiazepoxide HCl (LIBRIUM) 25 MG Q6H PO Dexmedetomidine HCl (PRECEDEX) 400 MCG Q24H IV Sodium Chloride (SODIUM CHLORIDE 0.9%) 96 ML Hydrocodone Bitart/Acetaminophen (NORCO 5/325 TABLET) 1 TAB Q4H PRN PRN PO Enoxaparin Sodium (LOVENOX) 40 MG Q24H SUBQ Folic Acid (FOLIC ACID) 1 MG DAILY PO Multivitamins Therapeutic (THERAGRAN) 1 TAB DAILY PO Mupirocin (BACTROBAN 2% 22 GM OINT) 1 APPLIC BID NASAL Calcium Gluconate (Calcium Gluconate 1 GM/NS 50 mL (B2)) 50 ML ASDIR PRN IV Calcium Gluconate (Calcium Gluconate 1 GM/NS 50 mL (B2)) 50 ML ASDIR PRN IV Chlordiazepoxide HCl (LIBRIUM) 25 MG Q4H PO (DC) Lorazepam (ATIVAN) 1 MG Q4H PRN PRN IV Magnesium Sulfate (MAGNESIUM SULF 2 GM/SWI 50 ML) 50 ML ASDIR PRN IV Potassium Chloride (POTASSIUM CHLORIDE 20 MEQ/100 ML PREMIX) 100 ML ASDIR PRN IV Potassium Chloride (POTASSIUM CHLORIDE 20 MEQ/100 ML PREMIX) 100 ML ASDIR PRN IV Potassium Chloride (POTASSIUM CHLORIDE 20 MEQ/100 ML PREMIX) 100 ML ASDIR PRN IV Potassium Chloride (POTASSIUM CHLORIDE 20 MEQ/100 ML PREMIX) 100 ML ASDIR PRN IV Potassium Phosphate (POTASSIUM PHOSPHATE) 15 MM ASDIR PRN IV (CKD) Sodium Chloride (SODIUM CHLORIDE 0.9%) 100 ML Sodium Phosphate (SODIUM PHOSPHATE) 15 MMOL ASDIR PRN IV Sodium Chloride (SODIUM CHLORIDE 0.9%) 100 ML Sodium Phosphate (SODIUM PHOSPHATE) 20 MMOL ASDIR PRN IV Sodium Chloride (SODIUM CHLORIDE 0.9%) 100 ML Sodium Phosphate (SODIUM PHOSPHATE) 30 MMOL ASDIR PRN IV Sodium Chloride (SODIUM CHLORIDE 0.9%) 100 ML Sterile Water (WATER FOR INJECTION) 10 ML ASDIR PRN IV Ceftriaxone Sodium (cefTRIAXone 1,000 MG VIAL) 1,000 MG Q24H IV Sodium Chloride (SODIUM CHLORIDE 0.9% 10ML) 10 ML Dextrose/Water (DEXTROSE 10%) 125 ML ASDIR PRN IV (CKD) Dextrose/Water (DEXTROSE 10%) 250 ML ASDIR PRN IV (CKD) Dextrose/Water (DEXTROSE 10%) 125 ML ASDIR PRN IV (CKD) Dextrose/Water (DEXTROSE 10%) 250 ML ASDIR PRN IV (CKD) Furosemide (LASIX 40MG INJ) 40 MG BID 9A 5P IV Glucagon (GLUCAGON) 1 MG ASDIR PRN IM Glucagon (GLUCAGON) 1 MG ASDIR PRN IM Insulin Human Lispro (Admelog) 0 AC HS SUBQ Lactulose (LACTULOSE) 20 GM TID PO Physical Exam General appearance: chronically ill appearing Head/eyes: atraumatic, normocephalic, PERRL, EOMI, clear cornea, normal conjunctiva/sclera, normal fundi, normal eyelids/periorb. ENT: ENT: normal dentition, normal ear left, normal ear right, normal nose, normal pharynx, normal sinus Neck: full range of motion, non-tender, normal thyroid, supple/no meningismus, no bruit/NL carotids, no JVD, no lymphadenopathy, no masses or swelling Cardiovascular: regular rate rhythm Respiratory/chest: crackles Abdomen: soft, non-tender, no distention, no guarding, no mass/organomegaly, no rebound Extremities: edema, moves all, normal capillary refill Musculoskeletal: full range of motion, normal inspection Neuro/KNOWLEDGE MANAGER: alert Skin: dry, intact Lymphatics: axilla normal, inguinal normal, neck normal, no lymphadenopathy Psychiatry: abnl judgment/insight, acute psychosis Results Findings/Data: Laboratory Tests 10/01/244: [Embedded Image Not Available] 10/02/24 0530: [Embedded Image Not Available] 10/02/24 0531: [Embedded Image Not Available] Laboratory Tests 10/01 10/01 10/01 10/02 10/02 1734 9 2104 0530 0530 Chemistry Sodium (136 - 145 mmol/L) 140 139 Potassium (3.5 - 5.1 mmol/L) 4.0 3.9 Chloride (98 - 107 mmol/L) 108 H 107 Carbon Dioxide (20.0 - 31.0 mmol/L) 31.0 31.0 Anion Gap (0 - 20) 4.8 4.8 BUN (9 - 23 mg/dL) 22 19 Creatinine (0.60 - 1.30 mg/dL) 0.86 0.79 Estimated Creat Clear (>30 mL/min) 84 91 Glomerular Filtr Rate (mL/min) 94 96 Glucose (74 - 106 mg/dL) 149 H 130 H POC Glucose (70 - 110 mg/dL) 141 H 156 H Calcium (8.7 - 10.4 mg/dL) 7.9 L 8.2 L Phosphorus (2.4 - 5.1 mg/dL) 3.3 3.1 Magnesium (1.6 - 2.6 mg/dL) 1.7 1.8 Total Bilirubin (0.20 - 1.10 mg/dL) 1.10 AST (0 - 33 U/L) 64 H ALT (10 - 49 U/L) 32 Total Alk Phosphatase (46 - 116 U/L) 146 H Total Protein (5.7 - 8.2 g/dL) 7.1 Albumin (3.4 - 5.0 g/dL) 2.9 L 2.9 L 10/02 10/02 10/02 10/02 0531 0531 0742 1122 Chemistry POC Glucose (70 - 110 mg/dL) 133 H 137 H Lactic Acid (0.5 - 2.0 mmol/L) 1.4 Ammonia (11.0 - 32.0 umol/L) 43 *H Laboratory Tests 10/02 0531 Hematology WBC (4.5 - 11.0 K/mm3) 7.4 RBC (4.40 - 5.90 M/mm3) 3.66 L Hgb (13.0 - 17.0 gm/dL) 11.7 L Hct (36.0 - 48.0 %) 35.8 L MCV (80.0 - 94.0 UM3) 97.8 H MCH (25.5 - 32.5 UUG) 32.0 MCHC (29.0 - 35.5 gm/dL) 32.7 RDW (11.5 - 15.0 %) 17.5 H Plt Count (150 - 400 K/mm3) 170 MPV (7.4 - 10.4 fl) 8.8 Neut % (Auto) (49.0 - 76.0 %) 71.0 Lymph % (Auto) (23.0 - 38.0 %) 12.1 L [place] % (Auto) (1.0 - 10.0 %) 12.0 H Eos % (Auto) (1.0 - 5.0 %) 1.2 Baso % (Auto) (0.0 - 1.0 %) 0.7 Neut # (Auto) (2.4 - 6.3 K/mm3) 5.3 Lymph # (Auto) (1.2 - 4.0 K/mm3) 0.9 L [place] # (Auto) (0.0 - 0.6 K/mm3) 0.9 H Eos # (Auto) (0.0 - 0.7 K/MM3) 0.1 Baso # (Auto) (0.0 - 0.2 K/mm3) 0.1 Absolute Nucleated RBC (0.00 - 0.01 X10 3uL) 0.00 Immature Gran % (0.0 - 0.4 %) 3.0 H Nucleated RBC % (0.0 - 0.1 %) 0.0 Immature Gran # (0.00 - 0.07 x10 3/uL) 0.22 H Results: labs reviewed, vital signs reviewed Diagnosis, Assessment Plan Free Text A P: 1. Sepsis Suspicious given tachycardia and reported blood culture positive Empiric antibiotics Etiology is unclear Cultures pending 2. Cirrhosis Decompensated GI evaluation Ammonia elevated Lactulose 3. Pleural effusion Possible hepatic hydrothorax? Repeat chest x-ray Follow symptoms 4. Hypoxemia Wean oxygen as tolerated 5. Altered mental status Hepatic encephalopathy? Continue to monitor closely 6. Delirium tremens? Tachycardia History of alcohol use Add Precedex CIWA protocol Critically ill The patient is at risk for further deterioration 35 minutes at bedside evaluating patient, updating chart, discussed with RN RT and writing orders for transfer. at 1527 RPT #:[id number] END OF REPORT [facility] 2024-10-02 12:22:00 [facility] ([facility] Consultation Note REPORT#:[id number] REPORT STATUS: Signed REPORT INITIALIZATION DATE:10/02/24 TIME: 122 PATIENT: ABAD AHRRINGTON UNIT #: [id number] ROOM/BED: [place] [id number] : 55 AGE: 69 SEX: M ATTEND: Luisa Vincent MD ADM AUTHOR: Ro Vickers BUS AND [employer]OL[employer] INSPECTING DISPATCHER REPT SERVICE DT/TIME: 10/02/24 1222 * ALL edits or amendments must be made on the electronic/computer document * Ro Vickers 10/02/24 1222: History of Present Illness Reason for consult: cirrhosis of liver ascites Chief complaint: Cirrhosis of liver abdominal distention HPI: 69-year-old patient with known history of cirrhosis, diabetes mellitus type 2, hypertension, BPH, prostate cancer presented to ER as a transfer from [facility]. Patient is slightly restless and mentally altered and currently a very poor historian. History obtained from the chart. Patient was seen at that facility diagnosed with sepsis, he refused transfer and signed out AMA. Returned back to [facility] and was transferred to [facility] for further workup. His blood cultures were positive for Streptococcus. Ammonia was [address] angio of chest with small to moderate right pleural effusion consolidation and moderate ascites. History - Adult longitudinal Additional medical history: Cirrhosis hypertension BPH prostate cancer diabetes mellitus type 2 Additional family history: Noncontributory Alcohol use: Denies EtOH use Drug use: Denies recreational drugs Smoking status for patients 13 years old or older: Current every day smoker Packs per day: 1 Years smoked: 54 Pack years: 54 Allergies: Coded Allergies: No Known Allergies (10/01/24) Review of Systems Unable to obtain due to: AMS Objective Physical Exam VS/I O: Last Documented: Result Date Time O2 Delivery Nasal cannula 10/02 0931 O2 Flow Rate 4 10/02 0931 Temp 98.2 10/02 0800 Pulse Ox 88 10/02 0630 B/P 130/72 10/02 0630 B/P Mean 95 10/02 0630 Pulse 110 10/02 0630 Resp 18 10/02 0630 24 hour I O ending at 0700: 10/02 0700 10/01 1900 Intake Total 650.00 Output Total 1924 1759 Balance -1925 -1110.00 Intake, IV 150.00 Intake, Oral 500 Number 2 Bowel Movements Output, Urine 1924 1759 PATIENT WEIGHT: Weight (lb): 315 Weight (oz): 11.23 Weight (kg): 143.200 Medications: Active Meds + DC'd Last 24 Hrs Chlordiazepoxide HCl (LIBRIUM) 25 MG Q24H PO Chlordiazepoxide HCl (LIBRIUM) 25 MG Q12H PO Chlordiazepoxide HCl (LIBRIUM) 25 MG Q8H PO Chlordiazepoxide HCl (LIBRIUM) 25 MG Q6H PO Dexmedetomidine HCl (PRECEDEX) 400 MCG Q24H IV (UNV) Sodium Chloride (SODIUM CHLORIDE 0.9%) 96 ML Hydrocodone Bitart/Acetaminophen (NORCO 5/325 TABLET) 1 TAB Q4H PRN PRN PO Enoxaparin Sodium (LOVENOX) 40 MG Q24H SUBQ Folic Acid (FOLIC ACID) 1 MG DAILY PO Multivitamins Therapeutic (THERAGRAN) 1 TAB DAILY PO Mupirocin (BACTROBAN 2% 22 GM OINT) 1 APPLIC BID NASAL Calcium Gluconate (Calcium Gluconate 1 GM/NS 50 mL (B2)) 50 ML ASDIR PRN IV Calcium Gluconate (Calcium Gluconate 1 GM/NS 50 mL (B2)) 50 ML ASDIR PRN IV Chlordiazepoxide HCl (LIBRIUM) 25 MG Q4H PO Lorazepam (ATIVAN) 1 MG Q4H PRN PRN IV Magnesium Sulfate (MAGNESIUM SULF 2 GM/SWI 50 ML) 50 ML ASDIR PRN IV Potassium Chloride (POTASSIUM CHLORIDE 20 MEQ/100 ML PREMIX) 100 ML ASDIR PRN IV Potassium Chloride (POTASSIUM CHLORIDE 20 MEQ/100 ML PREMIX) 100 ML ASDIR PRN IV Potassium Chloride (POTASSIUM CHLORIDE 20 MEQ/100 ML PREMIX) 100 ML ASDIR PRN IV Potassium Chloride (POTASSIUM CHLORIDE 20 MEQ/100 ML PREMIX) 100 ML ASDIR PRN IV Potassium Phosphate (POTASSIUM PHOSPHATE) 15 MM ASDIR PRN IV (CKD) Sodium Chloride (SODIUM CHLORIDE 0.9%) 100 ML Sodium Phosphate (SODIUM PHOSPHATE) 15 MMOL ASDIR PRN IV Sodium Chloride (SODIUM CHLORIDE 0.9%) 100 ML Sodium Phosphate (SODIUM PHOSPHATE) 20 MMOL ASDIR PRN IV Sodium Chloride (SODIUM CHLORIDE 0.9%) 100 ML Sodium Phosphate (SODIUM PHOSPHATE) 30 MMOL ASDIR PRN IV Sodium Chloride (SODIUM CHLORIDE 0.9%) 100 ML Sterile Water (WATER FOR INJECTION) 10 ML ASDIR PRN IV Ceftriaxone Sodium (cefTRIAXone 1,000 MG VIAL) 1,000 MG Q24H IV Sodium Chloride (SODIUM CHLORIDE 0.9% 10ML) 10 ML Calcium Gluconate (Calcium Gluconate 1 GM/NS 50 mL (B2)) 50 ML ONCE ONE IV (DC) Dextrose/Water (DEXTROSE 10%) 125 ML ASDIR PRN IV (CKD) Dextrose/Water (DEXTROSE 10%) 250 ML ASDIR PRN IV (CKD) Dextrose/Water (DEXTROSE 10%) 125 ML ASDIR PRN IV (CKD) Dextrose/Water (DEXTROSE 10%) 250 ML ASDIR PRN IV (CKD) Furosemide (LASIX 40MG INJ) 40 MG BID 9A 5P IV Glucagon (GLUCAGON) 1 MG ASDIR PRN IM Glucagon (GLUCAGON) 1 MG ASDIR PRN IM Insulin Human Lispro (Admelog) 0 AC HS SUBQ Lactulose (LACTULOSE) 20 GM TID PO Potassium Chloride (POTASSIUM CHLORIDE 20 MEQ/100 ML PREMIX) 100 ML ONCE ONE IV (DC) General appearance: chronically ill appearing, lethargic HEENT: anicteric, atraumatic, normocephalic Neck: full range of motion, non-tender, supple/no meningismus Cardiovascular: normal S1/S2, regular rate rhythm Respiratory: decreased breath sounds, symmetric expansion Abdomen: ascites, distended, normal bowel sounds Extremities: moves all Skin: dry, intact Results Findings/Data: Laboratory Tests 10/02/24 0531: [Embedded Image Not Available] 10/02/24 0530: [Embedded Image Not Available] 10/01/242103: [Embedded Image Not Available] Laboratory Tests 10/02 10/02 10/02 10/02 10/02 1122 0742 0531 0531 0530 Chemistry POC Glucose (70 - 110 mg/dL) 137 H 133 H Lactic Acid (0.5 - 2.0 mmol/L) 1.4 Phosphorus (2.4 - 5.1 mg/dL) 3.1 Magnesium (1.6 - 2.6 mg/dL) 1.8 Ammonia (11.0 - 32.0 umol/L) 43 *H 10/0230 21039 1734 Chemistry Sodium (136 - 145 mmol/L) 139 140 Potassium (3.5 - 5.1 mmol/L) 3.9 4.0 Chloride (98 - 107 mmol/L) 107 108 H Carbon Dioxide (20.0 - 31.0 mmol/L) 31.0 31.0 Anion Gap (0 - 20) 4.8 4.8 BUN (9 - 23 mg/dL) 19 22 Creatinine (0.60 - 1.30 mg/dL) 0.79 0.86 Estimated Creat Clear (>30 mL/min) 91 84 Glomerular Filtr Rate (mL/min) 96 94 Glucose (74 - 106 mg/dL) 130 H 149 H POC Glucose (70 - 110 mg/dL) 156 H 141 H Calcium (8.7 - 10.4 mg/dL) 8.2 L 7.9 L Phosphorus (2.4 - 5.1 mg/dL) 3.3 Magnesium (1.6 - 2.6 mg/dL) 1.7 Total Bilirubin (0.20 - 1.10 mg/dL) 1.10 AST (0 - 33 U/L) 64 H ALT (10 - 49 U/L) 32 Total Alk Phosphatase (46 - 116 U/L) 146 H Total Protein (5.7 - 8.2 g/dL) 7.1 Albumin (3.4 - 5.0 g/dL) 2.9 L 2.9 L Laboratory Tests 10/02 0531 Hematology WBC (4.5 - 11.0 K/mm3) 7.4 RBC (4.40 - 5.90 M/mm3) 3.66 L Hgb (13.0 - 17.0 gm/dL) 11.7 L Hct (36.0 - 48.0 %) 35.8 L MCV (80.0 - 94.0 UM3) 97.8 H MCH (25.5 - 32.5 UUG) 32.0 MCHC (29.0 - 35.5 gm/dL) 32.7 RDW (11.5 - 15.0 %) 17.5 H Plt Count (150 - 400 K/mm3) 170 MPV (7.4 - 10.4 fl) 8.8 Neut % (Auto) (49.0 - 76.0 %) 71.0 Lymph % (Auto) (23.0 - 38.0 %) 12.1 L [place] % (Auto) (1.0 - 10.0 %) 12.0 H Eos % (Auto) (1.0 - 5.0 %) 1.2 Baso % (Auto) (0.0 - 1.0 %) 0.7 Neut # (Auto) (2.4 - 6.3 K/mm3) 5.3 Lymph # (Auto) (1.2 - 4.0 K/mm3) 0.9 L [place] # (Auto) (0.0 - 0.6 K/mm3) 0.9 H Eos # (Auto) (0.0 - 0.7 K/MM3) 0.1 Baso # (Auto) (0.0 - 0.2 K/mm3) 0.1 Absolute Nucleated RBC (0.00 - 0.01 X10 3uL) 0.00 Immature Gran % (0.0 - 0.4 %) 3.0 H Nucleated RBC % (0.0 - 0.1 %) 0.0 Immature Gran # (0.00 - 0.07 x10 3/uL) 0.22 H Radiology data: Recent Impressions: RADIOLOGY - XR CHEST 1 V 10/02 0621 Report Impression - Status: SIGNED Entered: 10/02/2024 0741 IMPRESSION: Hypoventilated lungs with similar ill-defined interstitial opacities throughout, may be associated with mild edema, atelectasis and or multifocal pneumonia. Note that underinflation accentuates this finding. Location: Impression By: Surya Almaguer M.D. Diagnosis, Assessment Plan Free Text DxA P Notes Free Text DxA P Notes: 1. Cirrhosis of liver w/ascites will order hep panel, and INR - paracentesis - lactulose, lasix 2. Hepatic Encephalopathy II - ammonia 43 - lactulose 3. Pneumonia - pulmonary consulted From GI standpoint we will continue to monitor the patient's progress Maria Luz Veloz 10/16/24 1428: Diagnosis, Assessment Plan Free Text DxA P Notes Free Text DxA P Notes: Patient's chart reviewed along with examine and interview with SEARCH DEVELOPER and I agree with plan as written above at 1247 at 1428 RPT #:[id number] END OF REPORT [facility] 2024-10-02 09:40:00 [facility] ([facility]) Hospitalist Progress Note REPORT#:[id number] REPORT STATUS: Signed REPORT INITIALIZATION DATE:10/02/24 TIME: 939 PATIENT: ABAD HARRINGTON UNIT #: [id number] ROOM/BED: [place] [id number] : 55 AGE: 69 SEX: M ATTEND: Luisa Vincent MD ADM AUTHOR: Luisa Vincent MD REPT SERVICE DT/TIME: 10/02/24 7691 * ALL edits or amendments must be made on the electronic/computer document * Subjective Chief complaint: Follow-up sepsis bacteremia -----Seen in ICU AMS 4 L nasal cannula Anasarca Ornelas in place ROS cannot be obtained HPI: 69-year-old patient with known history of cirrhosis, diabetes mellitus type 2, hypertension, BPH, prostate cancer presented to ER as a transfer from [facility]. Patient is currently oriented x 2 but sleepy and currently a very poor historian. Patient apparently was seen at that facility diagnosed with sepsis, he refused transfer and signed out AMA. Return to [facility] from where he was transferred to [facility] for further care. Apparently blood culture bottles were positive for Streptococcus. Ammonia was [address] angio of chest with small to moderate right pleural effusion consolidation moderate ascites. Patient received cefepime and lactulose. Review of Systems Free Text ROS Notes Free Text ROS Notes: AMS Objective General VS/I O: Vital Signs: Date Time Temp Pulse Resp B/P B/P Pulse O2 O2 Flow FiO2 Mean Ox Delivery Rate 10/02 0630 110 18 130/72 95 88 10/02 0600 111 25 131/74 97 93 10/02 0530 110 26 141/67 92 97 10/02 0507 111 21 138/80 104 95 10/02 0430 108 25 134/73 98 99 10/02 0418 37.1 10/02 0400 110 26 129/80 100 98 10/02 0330 109 21 138/65 90 100 10/02 0300 109 16 128/65 90 99 10/02 0230 109 16 126/60 87 100 10/02 0200 110 20 129/63 88 100 10/02 0130 111 126/75 94 94 10/02 0100 111 17 135/64 92 96 10/02 0054 37.2 10/02 0030 112 19 131/63 90 95 10/02 0000 110 16 140/64 92 93 10/01 2330 113 22 128/66 91 95 10/01 2300 114 19 134/63 90 95 10/01 2230 113 23 140/67 96 95 10/01 2200 113 18 132/64 92 96 10/01 2130 112 16 124/60 86 96 10/01 2100 114 19 125/60 86 95 12/14 2030 115 20 141/68 96 95 10/01 2000 36.2 10/01 2000 Nasal 4 cannula 10/01 2000 115 16 147/67 96 94 10/01 1930 115 16 131/65 91 96 10/01 1900 115 17 150/70 101 95 10/01 1800 114 18 130/63 89 95 10/01 1731 117 19 118/92 103 97 10/01 1730 37.4 10/01 1700 117 24 128/62 88 96 10/01 1630 115 24 129/69 93 98 10/01 1616 Nasal 4 cannula 10/01 1600 116 31 118/63 84 98 10/01 1533 121 23 131/67 91 95 10/01 1059 37.2 119 22 146/78 100.7 97 Nasal cannula 24 hour I O ending at 0700: 10/01 1900 10/02 0700 Intake Total 650.00 Output Total 1760 1925 Balance -1110.00 -1925 Intake, IV 150.00 Intake, Oral 500 Number 2 Bowel Movements Output, Urine 1760 1925 PATIENT WEIGHT: Weight (lb): 315 Weight (oz): 11.23 Weight (kg): 143.200 Results Findings/Data: Laboratory Tests 10/01 10/01 10/01 10/01 10/02 1058 1734 2059 2104 0530 Chemistry Sodium (136 - 145 mmol/L) 140 139 Potassium (3.5 - 5.1 mmol/L) 4.0 3.9 Chloride (98 - 107 mmol/L) 108 H 107 Carbon Dioxide (20.0 - 31.0 mmol/L) 31.0 31.0 Anion Gap (0 - 20) 4.8 4.8 BUN (9 - 23 mg/dL) 22 19 Creatinine (0.60 - 1.30 mg/dL) 0.86 0.79 Estimated Creat Clear (>30 mL/min) 84 91 Glomerular Filtr Rate (mL/min) 94 96 Glucose (74 - 106 mg/dL) 149 H 130 H POC Glucose (70 - 110 mg/dL) 153 H 141 H 156 H Calcium (8.7 - 10.4 mg/dL) 7.9 L 8.2 L Phosphorus (2.4 - 5.1 mg/dL) 3.3 Magnesium (1.6 - 2.6 mg/dL) 1.7 Total Bilirubin (0.20 - 1.10 mg/dL) 1.10 AST (0 - 33 U/L) 64 H ALT (10 - 49 U/L) 32 Total Alk Phosphatase (46 - 116 U/L) 146 H Total Protein (5.7 - 8.2 g/dL) 7.1 Albumin (3.4 - 5.0 g/dL) 2.9 L 2.9 L 10/02 10/02 10/02 10/02 0530 0531 0531 0742 Chemistry POC Glucose (70 - 110 mg/dL) 133 H Lactic Acid (0.5 - 2.0 mmol/L) 1.4 Phosphorus (2.4 - 5.1 mg/dL) 3.1 Magnesium (1.6 - 2.6 mg/dL) 1.8 Ammonia (11.0 - 32.0 umol/L) 43 *H Laboratory Tests 10/02 0531 Hematology WBC (4.5 - 11.0 K/mm3) 7.4 RBC (4.40 - 5.90 M/mm3) 3.66 L Hgb (13.0 - 17.0 gm/dL) 11.7 L Hct (36.0 - 48.0 %) 35.8 L MCV (80.0 - 94.0 UM3) 97.8 H MCH (25.5 - 32.5 UUG) 32.0 MCHC (29.0 - 35.5 gm/dL) 32.7 RDW (11.5 - 15.0 %) 17.5 H Plt Count (150 - 400 K/mm3) 170 MPV (7.4 - 10.4 fl) 8.8 Neut % (Auto) (49.0 - 76.0 %) 71.0 Lymph % (Auto) (23.0 - 38.0 %) 12.1 L [place] % (Auto) (1.0 - 10.0 %) 12.0 H Eos % (Auto) (1.0 - 5.0 %) 1.2 Baso % (Auto) (0.0 - 1.0 %) 0.7 Neut # (Auto) (2.4 - 6.3 K/mm3) 5.3 Lymph # (Auto) (1.2 - 4.0 K/mm3) 0.9 L [place] # (Auto) (0.0 - 0.6 K/mm3) 0.9 H Eos # (Auto) (0.0 - 0.7 K/MM3) 0.1 Baso # (Auto) (0.0 - 0.2 K/mm3) 0.1 Absolute Nucleated RBC (0.00 - 0.01 X10 3uL) 0.00 Immature Gran % (0.0 - 0.4 %) 3.0 H Nucleated RBC % (0.0 - 0.1 %) 0.0 Immature Gran # (0.00 - 0.07 x10 3/uL) 0.22 H Laboratory Tests 10/01 0954 Urines Urine Color DARK YELLOW Urine Appearance CLEAR Urine pH (5.0 - 9.0) 6.0 Ur Specific [place] (1.000 - 1.030) 1.025 Urine Protein (NEGATIVE mg/dl) 30 Urine Glucose (UA) (NORMAL mg/dl) NORMAL Urine Ketones (NEGATIVE mg/dl) NEGATIVE Urine Blood (NEGATIVE Carmelo/micL) 250 Carmelo/micL H Urine Nitrite (NEGATIVE) NEGATIVE Urine Bilirubin (NEGATIVE mg/dL) NEGATIVE Urine Urobilinogen (NORMAL mg/dl) 4.0 mg/dl H Ur Leukocyte Esterase (NEGATIVE Pat/micL) 25 Pat/micL H Urine RBC (0 - 3 RBC/HPF) 5-10 H Urine WBC (NONE WBC/HPF) 0-3 Ur Epithelial Cells (0 - 3 EPI/HPF) 1-3 Amorphous Sediment (NONE) FEW Urine Bacteria (NONE) FEW Radiology data: Recent Impressions: RADIOLOGY - XR CHEST 1 V 10/02 0621 Report Impression - Status: SIGNED Entered: 10/02/2024 0741 IMPRESSION: Hypoventilated lungs with similar ill-defined interstitial opacities throughout, may be associated with mild edema, atelectasis and or multifocal pneumonia. Note that underinflation accentuates this finding. Location: H2 Impression By: Surya Almaguer M.D. Free Text Obj Notes Free Text Obj Notes: PHYSICAL EXAMINATION General appearance: Arousable AMS Head/Eyes: atraumatic, normocephalic, PERRL, EOMI ENT: normal ear left, normal ear right, normal nose, normal pharynx Neck: full range of motion, supple/no meningismus Cardiovascular: normal S1/S2, regular rate rhythm Respiratory/chest: Hypoxia decreased breath sounds bilaterally Abdomen: soft, non-tender, normal bowel sounds Genitourinary: deferred Extremities: Bilateral leg edema Musculoskeletal: full range of motion, normal inspection Neuro/KNOWLEDGE MANAGER alert, oriented X 2, CNII-XII intact Skin: Lower extremity chronic changes Psychiatry: AMS Diagnosis, Assessment Plan Free Text DxA P Notes Free text DxA P notes: Acute hypoxic respiratory failure Nasal cannula oxygen Pulmonary consult Decompensated cirrhosis of liver with anasarca IV diuresis GI consult Monitor electrolytes and labs Pneumonia -----IV antibiotics Follow cultures hypocalcemia Replace Recheck in a.m. Nephrology consultation hepatic encephalopathy Lactulose Monitor ammonia Diabetes mellitus type 2 Sliding scale insulin Discussed with Dr. Tamez Monitor closely Discussed with charge nurse 10/02/2024 Acute hypoxic respiratory failure----ICU monitoring, wean nasal cannula, pulmonology following Sepsis with pneumonia on IV antibiotics Bacteremia, blood cultures from other hospital reportedly positive for strep, blood cultures here pending Decompensated cirrhosis of liver with anasarca, GI consulted, on IV Lasix Hepatic encephalopathy on lactulose Alcoholism on CIWA protocol Diabetes mellitus type 2 Ornelas placed by urology at 0943 RPT #:[id number] END OF REPORT [facility] 2024-10-01 17:29:00 [facility] ([facility]) Urology Consult Note REPORT#:[id number] REPORT STATUS: Signed REPORT INITIALIZATION DATE:10/01/24 TIME: 1728 PATIENT: ABAD HARRINGTON UNIT #: [id number] ROOM/BED: [place] [id number] : 55 AGE: 69 SEX: M ATTEND: Luisa Vincent MD ADM AUTHOR: Hiro Hoang MD REPT SERVICE DT/TIME: 10/01/241728 * ALL edits or amendments must be made on the electronic/computer document * History of Present Illness HPI Requesting clinician: Dr. Vincent Reason for consult: Phimosis, need for accurate IOs Chief complaint: Cirrhosis, sepsis HPI: Abad Harrington is a 69-year-old male with known history of cirrhosis, diabetes type 2, hypertension, BPH, history of prostate cancer who presented as a transfer from the [facility] for sepsis and bacteremia. He is A and O x 0 currently in the ICU. He has cellulitis of his lower extremities, hepatic encephalopathy, decompensated liver cirrhosis with anasarca. We are asked to assist by placing a Ornelas for accurate I's and O's. He had failed catheter tent by nursing. Of note patient did not contribute to the history as he is minimally verbal and is somnolent and history was obtained through chart review. History Additional medical history: Cirrhosis hypertension BPH prostate cancer diabetes mellitus type 2 Additional family history: Noncontributory Alcohol use: Denies EtOH use Drug use: Denies recreational drugs Smoking status for patients 13 years old or older: Current every day smoker Packs per day: 1 Years smoked: 54 Pack years: 54 Allergies: Coded Allergies: No Known Allergies (10/01/24) Objective VS/I O: Last Documented: Result Date Time O2 Delivery Nasal cannula 10/01 161 O2 Flow Rate 4 10/01 1616 Pulse Ox 97 10/01 1059 B/P 146/78 10/01 1059 B/P Mean 100.7 10/01 1059 Temp 99.0 10/01 1059 Pulse 119 10/01 1059 Resp 22 10/01 1059 24 hour I O ending at 0700: 10/01 0700 09/30 1900 Intake Total Output Total Balance Patient 143.2 kg Weight Weight Bed scale Measurement Method PATIENT WEIGHT: Weight (lb): 315 Weight (oz): 11.23 Weight (kg): 143.200 Results Findings/Data: Laboratory Tests: 10/01 10/01 10/01 10/01 1058 0954 0854 0110 Chemistry POC Glucose (70 - 110 mg/dL) 153 H 101 Lactic Acid (0.5 - 2.0 mmol/L) 1.2 Urines Urine Color DARK YELLOW Urine Appearance CLEAR Urine pH (5.0 - 9.0) 6.0 Ur Specific [place] (1.000 - 1.030) 1.025 Urine Protein (NEGATIVE mg/dl) 30 Urine Glucose (UA) (NORMAL mg/dl) NORMAL Urine Ketones (NEGATIVE mg/dl) NEGATIVE Urine Blood (NEGATIVE Carmelo/micL) 250 Carmelo/micL H Urine Nitrite (NEGATIVE) NEGATIVE Urine Bilirubin (NEGATIVE mg/dL) NEGATIVE Urine Urobilinogen (NORMAL mg/dl) 4.0 mg/dl H Ur Leukocyte Esterase (NEGATIVE Pat/micL) 25 Pat/micL H Urine RBC (0 - 3 RBC/HPF) 5-10 H Urine WBC (NONE WBC/HPF) 0-3 Ur Epithelial Cells (0 - 3 EPI/HPF) 1-3 Amorphous Sediment (NONE) FEW Urine Bacteria (NONE) FEW 10/01 10/01 0110 0110 Chemistry Sodium (136 - 145 mmol/L) 142 Potassium (3.5 - 5.1 mmol/L) 3.4 L Chloride (98 - 107 mmol/L) 114 H Carbon Dioxide (20.0 - 31.0 mmol/L) 27.0 Anion Gap (0 - 20) 4.6 BUN (9 - 23 mg/dL) 24 H Creatinine (0.60 - 1.30 mg/dL) 0.66 Glomerular Filtr Rate (mL/min) 102 Glucose (74 - 106 mg/dL) 104 Hemoglobin A1c (0.0 - 5.6 %) 5.00 Estim Average Glucose (MG/DL) 97 Calcium (8.7 - 10.4 mg/dL) 6.4 *L Total Bilirubin (0.20 - 1.10 mg/dL) 1.20 H Direct Bilirubin (0.05 - 0.3 mg/dL) 0.8 H AST (0 - 33 U/L) 61 H ALT (10 - 49 U/L) 27 Total Alk Phosphatase (46 - 116 U/L) 120 H Troponin I High Sens (0 - 54 ng/L) 35 Total Protein (5.7 - 8.2 g/dL) 4.9 L Albumin (3.4 - 5.0 g/dL) 2.3 L Hematology WBC (4.5 - 11.0 K/mm3) 8.5 RBC (4.40 - 5.90 M/mm3) 3.64 L Hgb (13.0 - 17.0 gm/dL) 11.6 L Hct (36.0 - 48.0 %) 35.2 L MCV (80.0 - 94.0 UM3) 96.7 H MCH (25.5 - 32.5 UUG) 31.9 MCHC (29.0 - 35.5 gm/dL) 33.0 RDW (11.5 - 15.0 %) 17.4 H Plt Count (150 - 400 K/mm3) 143 L MPV (7.4 - 10.4 fl) 9.0 Neut % (Auto) (49.0 - 76.0 %) 79.3 H Lymph % (Auto) (23.0 - 38.0 %) 8.8 L [place] % (Auto) (1.0 - 10.0 %) 8.3 Eos % (Auto) (1.0 - 5.0 %) 0.6 L Baso % (Auto) (0.0 - 1.0 %) 0.7 Neut # (Auto) (2.4 - 6.3 K/mm3) 6.8 H Lymph # (Auto) (1.2 - 4.0 K/mm3) 0.8 L [place] # (Auto) (0.0 - 0.6 K/mm3) 0.7 H Eos # (Auto) (0.0 - 0.7 K/MM3) 0.1 Baso # (Auto) (0.0 - 0.2 K/mm3) 0.1 Absolute Nucleated RBC (0.00 - 0.01 X10 3uL) 0.00 Immature Gran % (0.0 - 0.4 %) 2.3 H Nucleated RBC % (0.0 - 0.1 %) 0.0 Immature Gran # (0.00 - 0.07 x10 3/uL) 0.20 H Recent Impressions: RADIOLOGY - XR CHEST 1 V 10/01 0114 Report Impression - Status: SIGNED Entered: 10/01/2024 0122 IMPRESSION: Patchy ill-defined multifocal infiltrates possibly due to CHF but multifocal pneumonia cannot be excluded Impression By: Joseline - Charla Lim M.D. Results: labs reviewed, vital signs reviewed Free text obj notes: Physical Examination: Constitutional: Obesity Eyes: normal external eye, conjunctiva and sclera normal Ears, nose, mouth, throat: normocephalic, moist mucous membranes Respiratory: respirations unlabored on room air Gastrointestinal: soft, non-distended, non-tender, no costovertebral angle tenderness Genitourinary: uncircumcised, severe phimosis, buried penis, bilateral descended testes Musculoskeletal: no clubbing, edema throughout all of his extremities, evidence of right lower extremity cellulitis and marked edema of his right leg Hematologic: no bruising Procedure: He was prepped and draped in the usual sterile fashion. Due to the his critical nature decision was made to proceed with Ornelas placement. We initially began by placing a 18 coud however due to his marked phimosis this would not pass. A 16 Tanzanian catheter was also attempted and also would not pass through his fibrotic foreskin. A straight sensor wire was passed blindly through the phimosis into the meatus and determined to be in the bladder. An 18 igiugig catheter was attempted be passed over the sensor wire however due to what appears to be meatal stenosis would not pass. He was then given a dose of 1 mg of Ativan to assist with his agitation. We then serially dilated his meatus using Ghanshyam dilators from 8 Tanzanian to 22 Tanzanian. The 18 Tanzanian catheter was then passed over the sensor wire without difficulty. Immediately clear urine drained. 10 cc of sterile water was instilled into the Ornelas bulb, sensor wire removed, and the catheter bag attached. Diagnosis, Assessment Plan Diagnosis, Assessment Plan Free Text A P: This is a 69-year-old male with decompensated cirrhosis, diabetes alleged history of prostate cancer, BPH, tobacco and alcohol abuse who is admitted for sepsis. Patient is altered, he is somnolent. He is presently in the ICU. We are asked to place a Ornelas due to need for accurate I's and O's. He has significant phimosis and what appeared to be meatal stenosis that was serially dilated at the bedside. Ornelas catheter was placed without difficulty. -Continue Ornleas catheter, do not remove until patient convalesces and is more alert and oriented Hiro Hoang MD [facility] at 1740 RPT #:[id number] END OF REPORT [facility] 2024-10-01 14:52:00 [facility] ([facility]) Pulmonary Consultation Note REPORT#:[id number] REPORT STATUS: Signed REPORT INITIALIZATION DATE:10/01/24 TIME: 1451 PATIENT: ABAD HARRINGTON UNIT #: [id number] ROOM/BED: [place] [id number] : 55 AGE: 69 SEX: M ATTEND: Luisa Vincent MD ADM AUTHOR: Arsh Tamez MD REPT SERVICE DT/TIME: 10/01/241451 * ALL edits or amendments must be made on the electronic/computer document * History of Present Illness HPI Requesting clinician: ANTONIO Reason for consult: SOB Chief complaint: same HPI: This patient is a 69-year-old white male with past medical history of cirrhosis, diabetes, prostate cancer, BPH, tobacco and alcohol abuse presenting as a transfer. History is unobtainable from the patient. The patient is unable to state why he transferred. Per report the the patient was seen at [facility]. At that time he left without being treated. He then was noted to have blood cultures which were positive. He was brought back to the emergency room and transferred to this facility for further care. In the emergency room and a full workup including labs and x-ray. Labs were significant for low calcium and hypokalemia. Mild anemia was noted. A chest x- ray was obtained which did reveal multifocal pneumonia. The patient was admitted to the floor initially. However the patient was noted to have tachycardia and tachypnea. He started becoming more confused and I was called urgently to the bedside. The patient was subsequently transferred to the ICU. Past medical history Cirrhosis Diabetes Hypertension BPH Prostate cancer Polysubstance abuse Past surgical history Unknown Social history 30-btsq-slts smoker Alcohol use Family history Reviewed and noncontributory ROS is unreliable PHYSICAL EXAMINATION: GENERAL: Supine, comfortable, in no acute respiratory distress. EYES: Pupils reactive, lids without pallor. ENT: Oropharynx is clear. Mallampati is 1. Nasal turbinates are clear. CV: S1 and S2. Regular rate and rhythm. No peripheral edema. RESPIRATORY: Decreased breath sounds bilaterally. Respiratory effort is normal. GI: Soft, nontender, and nondistended. No hepatosplenomegaly. : Deferred. NEURO: Alert and responsive. Cranial nerves II through XII intact. Sensation intact to light touch. PSYCH: Normal mood, affect, judgment, and insight. SKIN: No jaundice or rashes. Skin turgor is normal. EXTREMITIES: No clubbing or cyanosis. Joints are normal. History - Adult longitudinal Additional medical history: Cirrhosis hypertension BPH prostate cancer diabetes mellitus type 2 Additional family history: Noncontributory Alcohol use: Denies EtOH use Drug use: Denies recreational drugs Smoking status for patients 13 years old or older: Current every day smoker Packs per day: 1 Years smoked: 54 Pack years: 54 Allergies: Coded Allergies: No Known Allergies (10/01/24) Objective Physical Exam Vitals: Last Documented: Result Date Time Pulse Ox 97 10/01 1059 B/P 146/78 10/01 1059 B/P Mean 100.7 10/01 1059 O2 Delivery Nasal cannula 10/01 1059 Temp 99.0 10/01 1059 Pulse 119 10/01 1059 Resp 22 10/01 1059 O2 Flow Rate 4 10/01 0800 General appearance: chronically ill appearing Results Findings/Data: Laboratory Tests 10/01/24 0110: [Embedded Image Not Available] Laboratory Tests 10/01 10/01 10/01 10/01 10/01 0110 0110 0110 0854 1058 Chemistry Sodium (136 - 145 mmol/L) 142 Potassium (3.5 - 5.1 mmol/L) 3.4 L Chloride (98 - 107 mmol/L) 114 H Carbon Dioxide (20.0 - 31.0 mmol/L) 27.0 Anion Gap (0 - 20) 4.6 BUN (9 - 23 mg/dL) 24 H Creatinine (0.60 - 1.30 mg/dL) 0.66 Glomerular Filtr Rate (mL/min) 102 Glucose (74 - 106 mg/dL) 104 POC Glucose (70 - 110 mg/dL) 101 153 H Hemoglobin A1c (0.0 - 5.6 %) 5.00 Estim Average Glucose (MG/DL) 97 Lactic Acid (0.5 - 2.0 mmol/L) 1.2 Calcium (8.7 - 10.4 mg/dL) 6.4 *L Total Bilirubin (0.20 - 1.10 mg/dL) 1.20 H Direct Bilirubin (0.05 - 0.3 mg/dL) 0.8 H AST (0 - 33 U/L) 61 H ALT (10 - 49 U/L) 27 Total Alk Phosphatase (46 - 116 U/L) 120 H Troponin I High Sens (0 - 54 ng/L) 35 Total Protein (5.7 - 8.2 g/dL) 4.9 L Albumin (3.4 - 5.0 g/dL) 2.3 L Laboratory Tests 10/01 011 Hematology WBC (4.5 - 11.0 K/mm3) 8.5 RBC (4.40 - 5.90 M/mm3) 3.64 L Hgb (13.0 - 17.0 gm/dL) 11.6 L Hct (36.0 - 48.0 %) 35.2 L MCV (80.0 - 94.0 UM3) 96.7 H MCH (25.5 - 32.5 UUG) 31.9 MCHC (29.0 - 35.5 gm/dL) 33.0 RDW (11.5 - 15.0 %) 17.4 H Plt Count (150 - 400 K/mm3) 143 L MPV (7.4 - 10.4 fl) 9.0 Neut % (Auto) (49.0 - 76.0 %) 79.3 H Lymph % (Auto) (23.0 - 38.0 %) 8.8 L [place] % (Auto) (1.0 - 10.0 %) 8.3 Eos % (Auto) (1.0 - 5.0 %) 0.6 L Baso % (Auto) (0.0 - 1.0 %) 0.7 Neut # (Auto) (2.4 - 6.3 K/mm3) 6.8 H Lymph # (Auto) (1.2 - 4.0 K/mm3) 0.8 L [place] # (Auto) (0.0 - 0.6 K/mm3) 0.7 H Eos # (Auto) (0.0 - 0.7 K/MM3) 0.1 Baso # (Auto) (0.0 - 0.2 K/mm3) 0.1 Absolute Nucleated RBC (0.00 - 0.01 X10 3uL) 0.00 Immature Gran % (0.0 - 0.4 %) 2.3 H Nucleated RBC % (0.0 - 0.1 %) 0.0 Immature Gran # (0.00 - 0.07 x10 3/uL) 0.20 H Laboratory Tests 10/01 0954 Urines Urine Color DARK YELLOW Urine Appearance CLEAR Urine pH (5.0 - 9.0) 6.0 Ur Specific [place] (1.000 - 1.030) 1.025 Urine Protein (NEGATIVE mg/dl) 30 Urine Glucose (UA) (NORMAL mg/dl) NORMAL Urine Ketones (NEGATIVE mg/dl) NEGATIVE Urine Blood (NEGATIVE Carmelo/micL) 250 Carmelo/micL H Urine Nitrite (NEGATIVE) NEGATIVE Urine Bilirubin (NEGATIVE mg/dL) NEGATIVE Urine Urobilinogen (NORMAL mg/dl) 4.0 mg/dl H Ur Leukocyte Esterase (NEGATIVE Pat/micL) 25 Pat/micL H Urine RBC (0 - 3 RBC/HPF) 5-10 H Urine WBC (NONE WBC/HPF) 0-3 Ur Epithelial Cells (0 - 3 EPI/HPF) 1-3 Amorphous Sediment (NONE) FEW Urine Bacteria (NONE) FEW Radiology Data: Recent Impressions: RADIOLOGY - XR CHEST 1 V 10/01 114 Report Impression - Status: SIGNED Entered: 10/01/2024 012 IMPRESSION: Patchy ill-defined multifocal infiltrates possibly due to CHF but multifocal pneumonia cannot be excluded Impression By: Joseline - Charla Lim M.D. Results: labs reviewed, vital signs reviewed, x-ray personally reviewed, current med profile rev'd Diagnosis, Assessment Plan Free Text DxA P Notes Free Text DxA P Notes: 1. Sepsis Suspicious given tachycardia and reported blood culture positive Empiric antibiotics Etiology is unclear 2. Cirrhosis Decompensated GI evaluation Ammonia elevated Lactulose 3. Pleural effusion Possible hepatic hydrothorax? Repeat chest x-ray Follow symptoms 4. Hypoxemia Wean oxygen as tolerated 5. Altered mental status Hepatic encephalopathy? Continue to monitor closely Critically ill The patient is at risk for further deterioration 32 minutes at bedside evaluating patient, updating chart, discussed with RN RT and writing orders for transfer. at 1652 RPT #:[id number] END OF REPORT [facility] 2024-10-01 11:25:[address] [address] ELECTROCARDIOGRAM Patient: ABAD HARRINGTON Unit #: [id number] Sex/Age: Janet 69 : 55 Admit Date: 10/01/24 [facility] Physician: Luisa Vincent MD Room/Bed: [facility]1 Order: [id number] Test Reason : TACHY Test Date/Time Stamp: ThuOct 01 2024 11:25:44 Blood Pressure : / mmHG Vent. Rate : 120 BPM Atrial Rate : 120 BPM P-R Int : 192 ms QRS Dur : 140 ms QT Int : 328 ms P-R-T Axes : 066 081 024 degrees QTc Int : 463 ms Sinus tachycardia Right bundle branch block Abnormal ECG No previous ECGs available Confirmed by Camille Palma MD ([id number]) on 10/09/2024 1:46:22 PM Referred By: Self Referred Confirmed by:Camille Palma MD at 1346 dd/t: 10/01/24 1125 [facility] 2024-10-01 11:04:00 [facility] ([facility]) Hospitalist History Physical REPORT#:[id number] REPORT STATUS: Signed REPORT INITIALIZATION DATE:10/01/24 TIME: 1103 PATIENT: ABAD HARRINGTON UNIT #: [id number] ROOM/BED: [place] [address] : 55 AGE: 69 SEX: M ATTEND: Luisa Vincent MD ADM AUTHOR: Luisa Vincent MD REPT SERVICE DT/TIME: 10/01/24 1104 * ALL edits or amendments must be made on the electronic/computer document * See Addendum History of Present Illness HPI Chief complaint: Sepsis bacteremia PCP: PCP: Undefined Provider HPI: 69-year-old patient with known history of cirrhosis, diabetes mellitus type 2, hypertension, BPH, prostate cancer presented to ER as a transfer from [facility]. Patient is currently oriented x 2 but sleepy and currently a very poor historian. Patient apparently was seen at that facility diagnosed with sepsis, he refused transfer and signed out AMA. Return to [facility] from where he was transferred to [facility] for further care. Apparently blood culture bottles were positive for Streptococcus. Ammonia was [address] angio of chest with small to moderate right pleural effusion consolidation moderate ascites. Patient received cefepime and lactulose. History Past Medical Surgical Hx Additional medical history: Cirrhosis hypertension BPH prostate cancer diabetes mellitus type 2 Family History Additional family history: Noncontributory Social History Alcohol use: Denies EtOH use Drug use: Denies recreational drugs Smoking status for patients 13 years old or older: Current every day smoker Packs per day: 1 Years smoked: 54 Pack years: 54 Medication/Allergy-Vaccine Hx Allergies: Coded Allergies: No Known Allergies (10/01/24) Review of Systems Free Text ROS Notes Free Text ROS Notes: AMS OBJECTIVE VS/I O: Vital Signs Date Temp Pulse Resp B/P B/P Mean Pulse Ox FiO2 10/01 36.0-37.2 110-119 20-22 113-146/54-78 78-100.7 89-97 Last Documented: Result Date Time Pulse Ox 97 10/01 1059 B/P 146/78 10/01 1059 B/P Mean 100.7 10/01 1059 O2 Delivery Nasal cannula 10/01 1059 Temp 37.2 10/01 1059 Pulse 119 10/01 1059 Resp 22 10/01 1059 O2 Flow Rate 4 10/01 0800 24 hour I O ending at 0700: 09/30 1900 10/01 0700 Intake Total Output Total Balance Patient 143.2 kg Weight Weight Bed scale Measurement Method Patient Weight and BMI Weight (kg): 143.200 BMI: 45.3 Free Text PE Notes Free Text PE Notes: PHYSICAL EXAMINATION General appearance: Arousable AMS Head/Eyes: atraumatic, normocephalic, PERRL, EOMI ENT: normal ear left, normal ear right, normal nose, normal pharynx Neck: full range of motion, supple/no meningismus Cardiovascular: normal S1/S2, regular rate rhythm Respiratory/chest: good breath sounds, symmetric expansion, no distress Abdomen: soft, non-tender, normal bowel sounds Genitourinary: deferred Extremities: Bilateral leg o edema Musculoskeletal: full range of motion, normal inspection Neuro/KNOWLEDGE MANAGER alert, oriented X 2, CNII-XII intact Skin: Lower extremity chronic changes Psychiatry: AMS Diagnosis, Assessment Plan Free Text A P: Acute hypoxic respiratory failure Nasal cannula oxygen Pulmonary consult Decompensated cirrhosis of liver with anasarca IV diuresis GI consult Monitor electrolytes and labs Pneumonia -----IV antibiotics Follow cultures hypocalcemia Replace Recheck in a.m. Nephrology consultation hepatic encephalopathy Lactulose Monitor ammonia Diabetes mellitus type 2 Sliding scale insulin Discussed with Dr. Tamez Monitor closely Discussed with charge nurse at 1123 Addendum 1: 10/01/24 1126 by Luisa Vincent MD Bacteremia? ------ follow blood cultures at 1126 RPT #:[id number] END OF REPORT [facility] 2024-10-01 00:58:00 [facility] ([facility]) EMERGENCY PROVIDER REPORT REPORT#:[id number] REPORT STATUS: Signed DATE:10/01/24 TIME: 57 PATIENT: ABAD HARRINGTON UNIT #: [id number] ROOM/BED: [place] [id number] : 55 AGE: 69 SEX: M PCP PHYS: Undefined Provider SERVICE AUTHOR: Bradley Torres Jr, MD REP SRV REP SRV TM: 0058 * ALL edits or amendments must be made on the electronic/computer document * HPI-General Illness Free Text HPI Notes Free Text HPI Notes Patient with history of diabetes, liver cirrhosis hypertension, BPH, prostate cancer presents to the ED as a transfer from [facility]. Patient had initially been seen at that facility and diagnosed with sepsis but refused transfer and signed out AMA. Patient returned to the ED at [facility] today. Patient blood cultures from previously came back for strep and 2 out of 4 bottles. Patient is supposed to be on lactulose however it is unclear if patient is taking it currently. Ammonia level at other facility was 70, troponin 91. Patient had CT angio of his chest which showed a small to moderate right pleural effusion, bibasilar consolidation and moderate ascites patient did receive antibiotics, cefepime as well as lactulose patient is somewhat of a limited historian so history obtained predominantly from records of transfer. ROS All systems rev neg except as marked. PAST MEDICAL HISTORY diabetes, liver cirrhosis hypertension, BPH, prostate cancer PHYSICAL EXAM GEN: Mild distress, unkempt appearance HEAD: Atraumatic/NC ENT: dry mucous membranes NECK: Supple, full range of motion RESP: Decreased breath sounds bilaterally CV: Reg rate rhythm, ABD: Nontender nondistended MSK -2+ lower extremity NEURO: alert oriented, General Confirmed Patient Yes Initial Greet Date/Time 10/01/24 0055 Presentation Chief Complaint __ Past Medical History - Adult Stated Complaint GENERALIZED WEAKNESS/CIRRHOSIS/HYPOXIA Physical Exam Vital Signs Review of Vital Signs Reviewed Interpretation Diagnostics Lab Results Interpretation Results Microbiology: Date/Time Procedure - Status Source Growth 10/01 107 Blood Culture - ORD BLOOD 10/01 107 Blood Culture - ORD BLOOD 10/01 107 Blood Culture - ORD BLOOD 10/01 107 Blood Culture - ORD BLOOD Recent Impressions: RADIOLOGY - XR CHEST 1 V 10/01 114 Report Impression - Status: SIGNED Entered: 10/01/2024 0122 IMPRESSION: Patchy ill-defined multifocal infiltrates possibly due to CHF but multifocal pneumonia cannot be excluded Impression By: Joseline - Charla Lim M.D. Re-Evaluation MDM Free Text MDM Notes Additional Text Patient is admitted for pneumonia with hypoxia. Hemodynamically stable at this time. Already received antibiotics at other facility. The medical decision making includes independent review of any ordered imaging and EKGs and are in agreement with radiology interpretation unless documented otherwise. Individual labs and/or microbiologic data along with urine studies ordered and resulted at time of dictation have been interpreted by me and do not appear to contribute to an emergency diagnosis unless as mentioned above. Outside records including the most recent discharge summary, if available, have been reviewed. Consultants including hospitalists involved in the case as ordered/documented in the EMR agree with ED plan unless as documented above Social determinants of health were considered and impacted medical decision making and as a result part of patient's plan of care A decision regarding admission was discussed including risks and benefits. ED Course Medication(s) Ordered Medication(s) Ordered: Anti-Infective Agents Sig/Aida Start time Last Medication Dose Route Stop Time Status Admin Rifaximin 550 MG X1ED STA 10/01 0113 DC 10/01 PO 10/01 011 0124 Gastrointestinal Drugs Sig/Aida Start time Last Medication Dose Route Stop Time Status Admin Lactulose 30 GM X1ED STA 10/01 0113 DC 10/01 PO 10/01 011 0124 Patient Discharge Departure Vital Signs/Condition Vital Signs All vital signs available at the time of this entry have been reviewed. Condition Stable Clinical Impression Clinical Impression Primary Impression: Pneumonia Secondary Impressions: Cirrhosis Disposition Decision Hospitalize Hosp Physician Name Luisa Vincent MD )( Accepts Hospitalization Yes )( Reason for Hospitalization PNA,CIRRHOSIS )( Accepted Time 0105 )( Accepted Date 10/01/24 Call Information will see patient at 0128 RPT #:[id number] END OF REPORT [facility] Jaxrcfl4865-01-42 11:29:26* Kellie Villarreal RN - 08/22/2024 11:25 AM BEEF GRADER ONN attempted to reach Mr. Harrington again today. His cell phone is still disconnected. ONN spoke with his sister, Bee Hill, at ph# . She confirmed that his cell phone is still cut off. I asked when is the last time that she spoke with him and she said about 3 days ago. She said that I would need to reach him on Messenger. ONN explained that I am unable to contact Mr. Harrington on Messenger and asked that she please give him my name and contact info to call me regarding scheduling a new patient appt. with Dr. Diehl. Sister agreed to do this. ONN will remain available. GRADER [facility] HospitalZmnoslf0196-13-74 11:29:26 [facility] HospitalAkoihho3554-86-09 11:29:26 [facility] HospitalJlvjlsz7991-34-76 14:54:29 [facility] HospitalAdigaqa8637-86-64 14:54:29* Kellie Villarreal RN - 08/15/2024 2:53 PM CDT Ozzy- did you try the contact below? Plan for oncology and hepatology follow-up. As patient does not have a working phone at present, he asks that schedulers reach out to his sister to coordinate appointments - Bee Burgosson [phone]?) [phone] From: [facility] New Patient Coordinator <[email or web address]> Sent: Thursday, August 15, 2024 7:50 AM To: Kellie Villarreal <[email or web address]>; MANN <[email or web address]>; [email or web address] Cc: [facility] New Patient Coordinator <[email or web address]>; Alisha Diehl MD ([facility]) <[email or web address]> Subject: RE: secure Insurance Confirmation(Len) Good morning, We have made multiple attempts to contact this patient. Main number andalternate numbers are not working. Ozzy Wallis Patient Professional Sports Scout [facility] [address] [place] [address] Office: [phone] [email or web address] [address] [facility] HospitalNeopegf4241-26-71 14:54[address] [facility] HospitalDqwzvky3546-16-75 14:54[address] [facility] HospitalAcdmiha8395-14-53 16:59:[address] [facility] HospitalPhwkkbv7279-75-12 16:59:00* Kellie Villarreal RN - 08/12/2024 4:58 PM CDT [place] and good afternoon, Patient below will need new patient appointment with Dr. Diehl. Please check to see if both [place] and are in network: Patient name: Abad Harrington : 1955 Diagnosis: Metastatic Prostate Cancer Date of discharge: 08/11/24 Physician to be seen: Dr. Diehl Referring Physician: Dr. Lilly Sanford Preferred Contact: Preferred Day and time of appointment: ask patient Patient's Current Unit: N/A Comments: [facility] HospitalGvbaeai1594-26-31 16:59:[address] [facility] HospitalBccnppj8170-22-68 16:59[address] [facility] HospitalNvlywwa5766-01-00 16:46:51* Home Health (Routine) - Pending Review Specialty Diagnoses / Procedures Referred By Contac t Referred To Contact Home Health Services Diagnoses Weak Severe sepsis with septic shock (CODE) (HCC) Gutierrez Garcia MD [address] [place] [address] Phone: tel: fax: Referral ID Status Reason Start Date Expiration Date Visits Requested Visits Authorized [id number] Pending Review Specialty Services Required 4 10/10/2024 999 999 * Consultation (Routine) - Pending Review Specialty Diagnoses / Procedures Referred By Contac t Referred To Contact Hematology and Oncology Diagnoses 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) Procedures HI OFFICE/OUTPATIENT [facility] MDM 60-74 MINUTES Jax Foy MD [address] [facility] [address] [place] [address] Phone: tel: fax: [facility] Oncology Nurse Navigator [address] [place] [address] [place] [phone] Phone: tel: Referral ID Status Reason Start Date Expiration Date Visits Requested Visits Authorized [id number] Pending Review Specialty Services Required 4 02/06/2025 1 1 Electronically signed by Jax Foy MD at 44:[address] [facility] HospitalVbflhtr4453-27-00 16:46:51* * Auth/Cert (Routine) Specialty Diagnoses / Procedures Referred By Contac t Referred To Contact Diagnoses AMS (altered mental status) Procedures inpatient Ebenezer Clarke MD [address] [place] [address] [address] [place] [address] Phone: tel: fax: [facility] [address] [place] [address] Phone: tel: Referral ID Status Reason Start Date Expiration Date Visits Re quested Visits Authorized [id number] [address] [facility] HospitalOiyftqy4446-67-15 16:46:[address] [facility] HospitalUcweydl3177-68-21 16:46:51* Audit-C Score Answer Date of Assessment Author -1 08/02/2024 11:16 PM Jessica Angel RN * Intimate Partner Violence Question Answer Date of Assessment Author Within the last year, have you been humiliated or emotionally abused in other ways by your partner or ex-partner? Patient unable to answer 08/02/2024 11:16 PM Jessica Angel RN Within the last year, have you been afraid of your partner or ex-partner? Patient unable to answer 08/02/2024 11:16 PM Jessica Angel RN Within the last year, have you been raped or forced to have any kind of sexual activity by your partner or ex-partner? Patient unable to answer 08/02/2024 11:16 PM Jessica Angel RN Within the last year, have you been kicked, hit, slapped, or otherwise physically hurt by your partner or ex-partner? Patient unable to answer 08/02/2024 11:16 PM Jessica Angel RN * * In the past month, have you... Question Answer Date of Assessment Author Had nightmares about the prashant nts or thought about the events when you did not want to? No 08/05/2024 8:00 PM Lady Parisa Dempsey RN Tried hard not to think abou t the events or went out of your way to avoid situations that reminded you of the events? No 08/05/2024 8:00 PM Lady Parisa Dempsey RN Been constantly on guard, watchful, or easily startled? No 08/05/2024 8:00 PM Lady Mirta Dunn RN [place] numb or detached from people, activities, or your surroundings? No 08/05/2024 8:00 PM Lady Parisa Dempsey RN [place] guilty or unable to sto p blaming yourself or others for the events or any problems the events may have caused? No 08/05/2024 8:00 PM Lady Parisa Dempsey RN * Primary Care PTSD Score Question Answer Date of Assessment Author Primary Care PTSD Total Score 1 08/05/2024 8:00 PM Lady Mirta Dempsey RN [id number] 16:46:51* Nguyen Azevedo OT - 08/11/2024 2:58 PM CDT OT Encounter Note Patient Name: Abad Harrington Today's Date: 08/11/2024 Missed Treatment Time and Reason Chart reviewed. RN cleared for OT. OT tx attempted Pt found seated in recliner eating lunch. Reports he's leaving today. OT to re-attempt tx as time permits. Nguyen Azevedo OT * Bebe Alas LCSW - 08/11/2024 12:47 PM CDT Pt's primary team contacted LURDES & requested an update regarding discharge plans and asked how pt could be reached in the future for appointments. SW contacted pt by room phone. Pt stated pt's sister was able to speak w/pt's son via [employer] messenger & pt's son called pt on hospital room phone. Pt stated he would like to discharge to pt's son's current motel room, [facility], Room: [address] in [place], [place]. Pt stated he will turn on his phone on August 23, 2 days after he gets his check/new debit card and he hopes to keep the same number, . Pt stated he does not have transportation to the hotel room and would need assistance. [employer] Retrofit Technician contacted Management and requested approval for [employer] Voucher. CM Appeals Referee Taylor and Director Isis approved [employer] Voucher. LURDES updated pt's primary team & requested discharge orders. provided pt's nurse w/[employer] Voucher. * ADRIANA Washington - 08/11/2024 9:29 AM CDT Urology Progress Note Assessment and Plan: 69 y.o. male who needed SPT placement for I's and O's and possible retention. The SPT fell out last night. Attempted to replace a 14 Fr catheter, however, only able to get through the skin and could not get into the bladder. Brought guidewire and igiugig tip catheter bedside, however had long discussion with patient regarding the SPT. He states he does not want the tube because he does not know what to do with it once out of the hospital. He knows he will not follow up with doctors because he does not have a stable living situation or a ride to the clinic. He urinates well and would rather just use Depends. He is requesting that the tube not be replaced. Discussed risk of infection or discomfort if he is unable to urinate and may need to have the catheter replaced, he voices understanding. Would like to trial urinating on his own. PVR per RN was 119 ml this morning. RN states the catheter did not drain for the last 2 days and he has only been urinating through the urethra. If repeat PVR is still low, no need for replacement of SPT. Please page urology with any questions or concerns. Denies Sears PA-C Subjective: Pt is a 69 yo M BIB [facility] for AMS, possible sepsis. He has been found to have metastatic cancer. SPT was placed due to difficult ornelas placement, possible urinary retention? Though it appears it may have been more for I's and O's in ICU. Urology was called today as the SPT "fell out" last night around midnight. Pt is not sure what happened, but knows that the SPT fell out. He denies any pain or discomfort. He states he urinates normally from his urethra, but due to his prostate he goes frequently and is incontinent. He wears depends. Objective: Temp (24hrs), Av.8 ?C (98.2 ?F), Min:36.6 ?C (97.8 ?F), Max:36.9 ?C (98.5 ?F) Blood pressure 127/66, pulse 69, temperature 36.8 ?C (98.2 ?F), resp. rate 16, height 1.803 m (5' 10.98"), weight 117 kg (257 lb 15 oz), SpO2 92%. I/O last 3 completed shifts: In: 480 (4.1 mL/kg) [P.O.:480] Out: 0 (0 mL/kg) Weight: 117 kg Physical Exam Gen: no acute distress Resp: Nonlabored respirations Abd: soft, no TTP, non-distended, SPT not in place. Area covered with gauze that is dry. : Depends have urine, very wet Neuro: alert, interactive Labs Lab Results Component Value Date WBC 4.85 08/11/2024 RBC 4.46 08/11/2024 Hgb 13.1 08/11/2024 Hct 40.6 08/11/2024 MCH 29.4 08/11/2024 MCHC 32.3 08/11/2024 MCV 91.0 08/11/2024 Lab Results Component Value Date CO2 Lvl 26.7 08/11/2024 Chloride Lvl 108 (H) 08/11/2024 Sodium Lvl 139 08/11/2024 Potassium Lvl 4.2 08/11/2024 BUN 20 08/11/2024 Phosphorus Lvl 3.2 08/11/2024 Lab Results Component Value Date ALT 24 08/11/2024 AST 48 (H) 08/11/2024 Current Inpatient Medicationsdiclofenac sodium, 2 g, Topical, TID enoxaparin, 40 mg, Subcutaneous, Daily oxybutynin XL, 10 mg, Oral, Daily polyethylene glycol (PEG) 3350, 17 g, Oral, Daily propranolol, 20 mg, Oral, BID sennosides, 1 tablet, Oral, Nightly sodium chloride, 10 mL, Intravenous, q12h * Nguyen Azevedo OT - 08/10/2024 3:10 PM CDT Treatment Session Note Patient Name: Abad Harrington Today's Date: 08/10/2024 Preferred Language: Zimbabwean Assessment & Plan Assessment: OT Assessment Results: Impaired ADL status, Impaired endurance, Impaired functional mobility, Impaired gross motor control, Impaired IADLs Prognosis: Good Evaluation/Treatment Tolerance: Patient tolerated treatment well Plan: Treatment Plan/Goals Established with Patient/Caregiver: Yes OT Plan: Skilled OT OT Frequency: 3 times per week until discharge OT Discharge Recommendations: Home Health OT (Family assist) Equipment Recommended: Commode chair- 3-N-1 OT - OK to Discharge: Yes OT Planned Treatments: Activities of Daily Living, Mobility training Duration: 1-2 weeks Therapy discharge recommendations are made by determining the patient's prior level of function, assessing current function level and establishing rehab potential. The overall discharge plan may be affected by input from Physicians, Care Coordination, medical condition/status, family support and insurance benefits. Subjective If I get up I'm showering! Thank you. Pain: 0/10 Objective Self Care (ADL):Self Care/Home Management (ADLs) Time Entry: 61 ADL Comments: Found supine in bed. Max encouragement needed to participate. HOB flattened. Supine to sit CGA. Stood with close SBA to walk to BR. OT managed Ornelas. Pt adamently refused OT providing CGA for safety. t/f to seated on toilet for BM. t/f in tub with close SBA. Given chair to sit on to bathe. Bathed with SBA. Exited BR with SBA. Donned gown. Walked into room with close SBA. Pt consistently furniture holding when ambulating. t/f to seated in recliner. DEP to don socks. Combed his hair. Pt reported fatigue. Left seated in recliner with all needs in reach. Instructed to call RN when he wanted to get up and move. All needs in reach. AM-PAC Daily Activity:Putting on and taking off regular lower body clothing: A Little Bathing (including washing, rinsing, drying): A Little Toileting, which includes using toilet, bedpan or urinal: A Little Putting on and taking off regular upper body clothing: A Little Taking care of personal grooming such as brushing teeth: A Little Eating Meals: None AM-PAC Daily Activity Raw Score: 19 MobilityHighest Level of Mobility Performed (JH-HLM): Walked 10 steps or more (i.e. walked to restroom) Patient Education:Education Documentation No documentation found. Education Comments No comments found. Goals:Encounter Goals Encounter Goals (Active) Patient will perform chair to and from bed transfer with no assistance (Progressing) Start: 08/07/24 Expected End: 08/21/24 Patient will perform commode transfer with no assistance (Progressing) Start: 08/07/24 Expected End: 08/21/24 Patient will perform Shower transfer with no assistance using cane (Progressing) Start: 08/07/24 Expected End: 08/21/24 Patient will perform supine to sit on bed with no assistance demonstrating control (Progressing) Start: 08/07/24 Expected End: 08/21/24 Patient will demonstrate oral care with no assistance (Progressing) Start: 08/07/24 Expected End: 08/21/24 Patient will perform bathing activities seated with no assistance (Progressing) Start: 08/07/24 Expected End: 08/21/24 Treatment Note: If this is the last documented treatment, then it will signify discharge from acute care prior to discharge from the therapy service and will serve as the discharge summary. Nguyen Azevedo OT * Gage Carrillo, PT - 08/10/2024 1:50 PM CDT Physical Therapy Treatment Session Note Patient Name: Abad Harrington Today's Date: 08/10/2024 Preferred Language: Zimbabwean Assessment & Plan Assessment: The pt tolerated the treatment with no complaints of pain or fatigue. The pt was able to participate with mobility on his own upon his request. The pt completed all transfers and gait with supervision. Pt had multiple standing rest breaks with gait. Pt remained agitated throughout treatment. The pt is near his baseline. PT will continue to follow the pt case from afar and reassess as needed. The pt will benefit from benefit from post-acute care services to help the pt safely transition home. Prognosis: Good Barriers to Discharge: Behavioral issues, Complicated medical history Evaluation/Treatment Tolerance: Treatment limited secondary to agitation Medical Staff Made Aware: Yes Plan: Treatment Plan/Goals Established with Patient/Caregiver: Yes Treatment/Interventions: Balance training, Bed mobility training, Functional activities, Gait training, Neuromuscular re-education, Therapeutic exercises, Stair training, Transfer training PT Plan: Skilled PT PT Frequency: Monitor status and reassess as needed PT Discharge Recommendations: detention facility placement PT Recommended Transfer Status: Independent Therapy discharge recommendations are made by determining the patient's prior level of function, assessing current function level and establishing rehab potential. The overall discharge plan may be affected by input from Physicians, Care Coordination, medical condition/status, family support and insurance benefits. Subjective Current Problem: Per EMR: Mr Abad Harrington is a 69 year old male with past methamphetamine and alcohol use disorder, hepatitis C who was found altered and combative on scene but moving all extremities after leaving hospice facility. Intubated on life flight, now extubated tolerating 2L NC well. 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 Pain: 0/10 Health Conditions Objective General Visit Information: PT Last Visit PT Received On: 08/10/24 Activity Tolerance:Endurance: Tolerates 10 - 20 min exercise with multiple rests Early Mobility/Exercise Safety Screen: Proceed with mobilization - No exclusion criteria met CognitionOverall Cognitive Status: Within Functional Limits Behavior/Cognition: Alert, Agitated, Cooperative Orientation Level: Oriented X4 Following Commands: Follows multistep commands with repetition Safety Judgment: Decreased awareness of need for safety TreatmentRN cleared pt for PT treatment Pt [facility] upon arrival Pt able to stand with Supervision and RW Pt able to ambulate ~200ft with Supervision. Multiple standing breaks. Pt able to transfer to seated in chair with Supervision and RW Pt left [facility] with CB, phone, and tray. RN notified of pt position and response to therapy. Gait training:Gait Training Time Entry: 11 Gait Training Activity 1:Distance (enter in feet): ~200ft Gait Training Activity 1: Indoor surface Assistive Devices And Adaptive Equipments: Walker, front-wheeled Level of Assistance 1: Supervision/touching assistance (Supervison) Gait Training Activity 1 Comment: (Multiple standing attempts) AM-PAC Basic Mobility:AM-PAC Basic Mobility Inpatient Turning in bed without bedrails: A Little Lying on back to sitting on edge of flat bed: A Little Bed to chair: A Little Standing up from chair: A Little Walk in room: A Little Climbing 3-5 stairs: None Mobility Inpatient Raw Score: 19 JH-HLM Goal: 6 Patient Education: Education Documentation No documentation found. Education Comments No comments found. Goals:Encounter Goals Encounter Goals (Active) Patient will perform bed mobility rolling side to side with min/CGA assist Start: 08/06/24 Expected End: 08/13/24 Patient will perform transfers supine to sit, sit to supine with min/CGA Start: 08/06/24 Expected End: 08/13/24 Patient wilmer perform standing/pre-gait activity with min/CGA assist, DME as indicated Start: 08/06/24 Expected End: 08/13/24 Patient will progress to ambulation activity 50' or > with min/CGA assist, DME as indicated Start: 08/06/24 Expected End: 08/13/24 Treatment Note: If this is the last documented treatment, then it will signify discharge from acute care prior to discharge from the therapy service and will serve as the discharge summary. Gage Carrillo PT * Bebe Alas LCSW - 08/10/2024 12:09 PM CDT SW contacted pt to discuss discharge plans. SW discussed pt discharging to a NH and pt stated he will not go to a NH. Pt states he would like to discharge to his camper however it does not have working utilities and he would need someone to take it to a park for him. Pt stated his camper is currently at pt's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 Toileting, which includes using toilet, bedpan or urinal: A Little Putting on and taking off regular upper body clothing: A Little Taking care of personal grooming such as brushing teeth: None Eating Meals: None AM-PAC Daily Activity Raw Score: 18 Mobility Highest Level of Mobility Performed (-HLM): Walked 10 steps or more (i.e. walked to restroom) Patient Education: Education Documentation No documentation found. Education Comments No comments found. Goals: Encounter Goals Encounter Goals (Active) Patient will perform chair to and from bed transfer with no assistance Start: 08/07/24 Expected End: 08/21/24 Patient will perform commode transfer with no assistance Start: 08/07/24 Expected End: 08/21/24 Patient will perform Shower transfer with no assistance using cane Start: 08/07/24 Expected End: 08/21/24 Patient will perform supine to sit on bed with no assistance demonstrating control Start: 08/07/24 Expected End: 08/21/24 Patient will demonstrate oral care with no assistance Start: 08/07/24 Expected End: 08/21/24 Patient will perform bathing activities seated with no assistance Start: 08/07/24 Expected End: 08/21/24 Treatment Note: If this is the last documented treatment, then it will signify discharge from acute care prior to discharge from the therapy service and will serve as the discharge summary. Daphne Peres OT * Gutierrez Garcia MD - 08/08/2024 7:54 AM CDT Medicine Team A Progress Note Pt identified using 2 identifiers: Name and Assessment and Plan: Mr Abad Harrington is a 69 year old male with past methamphetamine and alcohol use disorder, hepatitis C who was found altered and combative on scene but moving all extremities after leaving hospice facility. Intubated on life flight, now extubated tolerating 2L NC well. 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 #Metabolic encephalopathy UDS positive for amphetamines and benzos on admission Ammonia WNL -CT Brain: No acute intracranial hemorrhage or signs of edema. A 1.2 cm left frontal calvarial sclerotic lesion likely represents a metastasis given findings on concurrent CTA head and neck. PLAN -will do motivational interview regarding amphetamines and alcohol use #Aspiration pneumonia (resolved) WBC 6.29 -> 5.64 - 08/03 MRSA Nares positive, Viral panel negative - 08/03 Procal elevated at 1.35 - Legionella negative - Vanc/cefe dc'd 08/04 - S/p 3 doses of Azithromycin PLAN Currently on Ceftriaxone for CAP coverage- to complete 7 days- end 08/10 #Liver cancer (HCC) with metastisis -Heavy alcohol use, with history of Hep C -CT abdomen/pelvis showing mild-moderate ascites, nodular liver, possible cirrhosis -The ICU Team consulted Oncology, consult rejected as oncology requested that patient's potential compliance needs to be assessed and insurance verified for follow up. -LDH 335, CEA 6.81, PSA 144.7 -HIV negative PLAN -hepatitis panel ordered -oncology recs -Recommend IR consult to obtain biopsy of inguinal lymph node -Order CA 19-9 -Consider radiation oncology consult on Thursday to see if irradiation of any painful bone lesions for palliation might be appropriate. -Prostate MRI can be decided on after biopsy results are back. Recommend to reconsult when results are back. -will hold off on rad onc consult because patient is not endorsing pain in areas with bone lesions -start propranolol (HR goal 55-60) -Patient reportedly refused consent, upon talking to patient again, he says he wants the biopsy, will reorder #R Shoulder pain -started this hospitalization -previous imaging doesn't not visualize whole shoulder PLAN -x ray show no metastatic lesion -start diclofenac gel, however patient refused #Right ventricular dilation POCUS with RV dilatation, TTE 08/03 shows EF 60-65% and mild RV enlargement with normal systolic function. #Urinary retention -patient had acute urinary retention with a phimotic penis, difficult ornelas placement, urology placed suprapubic catheter 08/02 -There is urinary leakage on patient's pad PLAN: -will consult urology to come assess the SP tube - F/u with urology as outpatient for suprapubic catheter exchange DVT PPX: lovenox Bowel Regimen: miralax, senna Diet: low sodium diet PT/OT indicated: orderd Lines/Urinary catheter: SP tube, R PIV x2 Code status: Full Dispo: to Patient discussed with attending Dr. Foy. Gutierrez Garcia MD, MPH [facility] Internal Medicine PGY-1 08/08/24, 7:54 AM Subjective: NAEON. Denies N/V/F/C, CP/SOB. Patient was angry that his food tray was not at bedside this morning and states that his SP tube is not leaking anymore. Objective: Vitals: 08/07/24 2335 08/08/24 0353 08/08/24 0353 08/08/24 0354 BP: 125/69 Pulse: 85 80 Resp: 14 19 Temp: 36.7 ?C (98 ?F) TempSrc: Oral Oral SpO2: 91% 94% Weight: Height: 24HR INTAKE/OUTPUT: No intake or output data in the 24 hours ending 08/08/24 0754 Physical Exam General: adult supine in bed; no acute distress Eyes: pupils equal & reactive; sclerae anicteric; conjunctivae & lids without lesions Ears/Nose/Mouth/Throat: moist mucous membranes; normal dentition Cardiovascular: regular rate & rhythm; extremities without edema Respiratory: clear to auscultation bilaterally; no retractions or accessory muscle use Gastrointestinal: soft, nontender, distended with fluid wave; +bowel sounds Musculoskeletal: normal range of motion to all extremities; R shoulder bursa tender on palpation Skin: warm & dry; no rash noted; no palpable cutaneous lesions appreciated Neurologic: eyes open spontaneously; follows commands Psychiatric: alert & oriented x 3; appropriate mood & affect Data: Lab Results Component Value Date WBC 4.74 08/08/2024 Hgb 13.1 08/08/2024 Hct 40.2 08/08/2024 MCV 93.7 08/08/2024 Plt Count 81 (L) 08/08/2024 Lab Results Component Value Date CO2 Lvl 26.8 08/08/2024 Chloride Lvl 109 (H) 08/08/2024 Sodium Lvl 140 08/08/2024 Potassium Lvl 4.2 08/08/2024 BUN 12 08/08/2024 Lab Results Component Value Date ALT 20 08/08/2024 AST 43 (H) 08/08/2024 Medications: Current Facility-Administered Medications Medication Dose Route Frequency Provider Last Rate Last Admin acetaminophen (Tylenol) tablet 650 mg 650 mg Oral q6h PRN Diana Johnson MD 650 mg at 08/07/24 0543 calcium gluconate in NaCl 50mL IVPB 1 g 1 g Intravenous PRN Nneka Washington MD cefTRIAXone (Rocephin) 2 g in sterile water injection 2 g Intravenous q24h Ebenezer Clarke MD 2 g at 08/07/24 1510 dextrose 50 % solution 12.5 g 12.5 g Intravenous PRN Paco Morales MD dextrose 50 % solution 25 g 25 g Intravenous PRN Paco Morales MD diclofenac sodium 1 % gel 2 g 2 g Topical TID Gutierrez Garcia MD 2 g at 08/07/24 1509 glucagon injection 1 mg 1 mg Intramuscular PRN Paco Morales MD heparin injection 7,500 Units 7,500 Units Subcutaneous q8h AIDA Aretha Griffin MD 7,500 Units at 08/08/24 0530 hydrocortisone sod succinate (PF) (Solu-CORTEF) injection 100 mg 100 mg Intravenous Once Aretha Griffin MD hyoscyamine (Anaspaz) disintegrating tablet 125 mcg 125 mcg Sublingual q6h PRN Paco Morales MD magnesium sulfate IVPB 2 g 2 g Intravenous PRN Nneka Washington MD multivitamin (Theragran-M) tablet 1 tablet 1 tablet Oral Daily Nneka Washington MD 1 tablet at 08/06/24 0836 nystatin (Mycostatin) 496657 UNIT/GM powder 1 Application 1 Application Topical PRN Paco Coy MD oxybutynin XL (Ditropan-XL) 24 hr tablet 10 mg 10 mg Oral Daily Ebenezer Clarke MD 10 mg at 08/07/24 1005 polyethylene glycol (PEG) 3350 (Miralax) packet 17 g 17 g Oral Daily Paco Morales MD 17 g at 08/06/24 0836 potassium & sodium phosphates (Phos-NaK) 280-160-250 MG packet 2 packet 2 packet Oral q4h PRN Nneka Washington MD Or potassium & sodium phosphates (Phos-NaK) 280-160-250 MG packet 2 packet 2 packet Per G Tube q4h PRN Nneka Washington MD potassium chloride IVPB 20 mEq 20 mEq Intravenous PRN Nneka Washington MD Or potassium chloride IVPB 10 mEq 10 mEq Intravenous PRN Nneka Washington MD Or potassium chloride CR (Klor-Con M20) ER tablet 20 mEq 20 mEq Oral PRN Nneka Washington MD Or Potassium chloride solution 20 mEq 20 mEq Per G Tube PRN Nneka Washington MD propranolol (Inderal) tablet 10 mg 10 mg Oral BID Gutierrez Garcia MD Refresh P.M. (mineral oil-white petrolatum) ophthalmic ointment 1 drop 1 drop Both Eyes BID PRN Diana Johnson MD sennosides (Senokot) tablet 8.6 mg 1 tablet Oral Nightly Paco Morales MD sodium chloride (NS) 0.9 % flush 10 mL 10 mL Intravenous q12h Paco Coy MD 10 mL at 08/07/24 2300 sodium chloride (NS) 0.9 % flush 10 mL 10 mL Intravenous PRN Paco Coy MD sodium chloride 0.9 % infusion 250 mL 250 mL Intravenous PRN Paco Coy MD sodium phosphates 45 mmol in sodium chloride 0.9 % 250 mL IVPB 45 mmol Intravenous PRN Nneka Washington MD Imaging/Procedures: XR humerus 2 views right Narrative: EXAM: XR HUMERUS 2 VIEWS RIGHT DATE: 08/07/2024 12:19 INDICATION: Shoulder pain, possible metastisis COMPARISON: None. TECHNIQUE: AP and lateral radiographs of the humerus FINDINGS: No acute fracture or malalignment is identified. Severe acromioclavicular joint degenerative changes and glenohumeral joint degenerative changes are present. No soft tissue abnormality is identified.Impression: No acute abnormality. Cosigned by Jax Foy MD at 08/08/2024 8:17 PM CDT Associated attestation - Jax Foy MD - 08/08/2024 8:17 PM CDT [place] [facility] Team A ATTENDING ATTESTATION I have seen and examined the patient Mr. Abad Harrington on the above dateof service, reviewed the laboratory/imaging/microbiology data/applicable instructional systems design consultant notes, discussed the pertinent case findings with the resident physician Dr. Gutierrez Garcia MD of Medicine Team A, and agree with their assessment and plan as documented below. Abad Harrington is a 69 y.o. M with cirrhosis (suspected 2/2 EtOH and HCV) c/b esophageal varices and ascites, hx of treated HCV, AUD, and amphetamine use who presented with metabolic encephalopathy requiring intubation initially admitted to the ICU. Patient feeling well without acute concerns. Undergoing oncologic work-up. PSA elevated to 144. CEA elevated at 6.81. CA 19-9 18. 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 Pursuing inguinal lymph node biopsy (seen on CT A/P) with IR. Has suprapubic catheter, which was placed for urinary retention and inability to place Ornelas due to pinpoint urethral meatus. Will try to obtain outside records from [facility]. Completing ceftriaxone course for CAP. On propranolol for cirrhosis with esophageal varices seen on imaging. Checking HCV RNA to confirm that HCV was cured. Will need EGD and hepatology follow-up as an outpatient. Patient does not want to discharge to SNF and currently does not appear that family has offered for patient to stay with them. Appreciate SW support in arranging safe discharge plan. We appreciate the assistance of the oncology and IR consultation teams.We appreciate the efforts of the Social Work/Case Management team in helping to facilitate a safe discharge. ProphylaxisEnoxaparin 40 mg daily Lines/Tubes/DrainsPIV, suprapubic catheter Code StatusFull code DispositionPending clinical improvement Marianne Crow Professor, Division of General Internal Medicine [facility] * Elaine Wharton, OT - 08/07/2024 11:40 AM CDT Evaluation and Treatment Patient Name: Abad Harrington Today's Date: 08/07/2024 Preferred Language: Zimbabwean Assessment & Plan Pt is a 69 y.o. M, who was found sitting on a bench outside with bystanders report seeing him sitting there all day. Per report, he was altered and combative on scene but moving all extremities. Given 50mg ketamine IN, 100 sreg IM, 10 vec IN, and 30 etomidate by life flight for intubation. The patient has a history of primary liver cancer with metastases to the bone. He is not on any anticoagulation. PMHX limited due to patient's current condition. Pt was pleasant and oriented x 3 this session. Pt slightly frustrated about suprapubic catheter not working. Pt states that he lives alone in trailer and is mod I with all ADLs and transfers. Pt does have several canes. Pt performing below his functional baseline of mod I with decreased ADLs, decreased functional transfers, decreased endurance, decreased safety awareness, and overall I. Pt will continue to benefit from OT services while in house. Assessment: Prognosis: Fair Barriers to Discharge: Medical diagnosis Evaluation/Treatment Tolerance: Other (Comment) (limted by pain, declining to mobilize OOB) Medical Staff Made Aware: Yes Plan: Treatment Plan/Goals Established with Patient/Caregiver: Yes Treatment/Interventions: Bed mobility training, Gait training, Functional activities, Therapeutic exercises, Transfer training OT Plan: Home health OT OT Frequency: 3 times per week until discharge OT Discharge Recommendations: OT Recommended Transfer Status: Min A Therapy discharge recommendations are made by determining the patient's prior level of function, assessing current function level and establishing rehab potential. The overall discharge plan may be affected by input from Physicians, Care Coordination, medical condition/status, family support and insurance benefits. Subjective " I told them this wasn't working, so I took a shower." ( Pt talking about suprapubic catheter) Current Problem: Pt is a 69 y.o. M, who was found sitting on a bench outside with bystanders report seeing him sitting there all day. Per report, he was altered and combative on scene but moving all extremities. Given 50mg ketamine IN, 100 serg IM, 10 vec IN, and 30 etomidate by life flight for intubation. The patient has a history of primary liver cancer with metastases to the bone. He is not on any anticoagulation. PMHX limited due to patient's current condition. General Visit Information: Family/Caregiver Present: No Precautions: UE Weight Bearing Status: WFL LE Weight Bearing Status: WFL Medical Precautions: fall, decreased safety/judgement Cognition: Orientation Level: Oriented X4 Following Commands: Follows multistep commands with repetition Safety Judgment: Decreased awareness of need for safety Home Living: Type of Home: Trailer Lives With: Alone Home Adaptive Equipment: Cane Bathroom Shower/Tub: Walk-in shower Bathroom Toilet: Standard Prior Function: Level of [place]: Ambulated with assistive device (comment) Receives Help From: Family Social History: Social History Source: Patient Self Care (ADL): Eating Assistance: Independent Grooming Assistance: Independent Bathing Assistance: Partial/Mod assistance UE Dressing Assistance: Independent LE Dressing Assistance: Partial/Mod assistance Toileting Assistance: Substantial/Max assistance Mobility/Transfers: Bed Mobility Bed Mobility Bed Mobility: Yes Bed Mobility 1 Level of Assistance 1: Supervision/touching assistance Bed Mobility To/From: Roll lying to left/Return to back Assistive Devices And Adaptive Equipments: Bed rail Transfer Transfers Transfer: No Transfer 1 Transfer To/From: (Pt EOB deferred due to leaking catheter, RN reports pt took shower with setup last night with nursing) OT General Assessments: ADL Eating Assistance: Independent Grooming Assistance: Independent Bathing Assistance: Partial/Mod assistance UE Dressing Assistance: Independent LE Dressing Assistance: Partial/Mod assistance Toileting Assistance: Substantial/Max assistance Treatment: Self-Care: Eating Assistance: Independent Grooming Assistance: Independent Bathing Assistance: Partial/Mod assistance UE Dressing Assistance: Independent LE Dressing Assistance: Partial/Mod assistance Toileting Assistance: Substantial/Max assistance Bed Mobility: Bed Mobility Bed Mobility: Yes Bed Mobility 1 Level of Assistance 1: Supervision/touching assistance Bed Mobility To/From: Roll lying to left/Return to back Assistive Devices And Adaptive Equipments: Bed rail Transfers: Transfers Transfer: No Transfer 1 Transfer To/From: (Pt EOB deferred due to leaking catheter, RN reports pt took shower with setup last night with nursing) AM-PAC Daily Activity: Putting on and taking off regular lower body clothing: A Little Bathing (including washing, rinsing, drying): A Lot Toileting, which includes using toilet, bedpan or urinal: A Lot Putting on and taking off regular upper body clothing: None Taking care of personal grooming such as brushing teeth: None Eating Meals: None AM-PAC Daily Activity Raw Score: 19 Mobility Highest Level of Mobility Performed (JH-HLM): Bed activity Patient Education: Education Documentation No documentation found. Education Comments No comments found. Goals: Treatment Note: If this is the last documented treatment, then it will signify discharge from acute care prior to discharge from the therapy service and will serve as the discharge summary. Elaine Wharton OT * Gutierrez Garcia MD - 08/07/2024 8:06 AM CDT Medicine Team A Progress Note Pt identified using 2 identifiers: Name and Assessment and Plan: Mr Abad Harrington is a 69 year old male with past methamphetamine and alcohol use disorder, hepatitis C who was found altered and combative on scene but moving all extremities after leaving hospice facility. Intubated on life flight, now extubated tolerating 2L NC well. 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 #Metabolic encephalopathy UDS positive for amphetamines and benzos on admission Ammonia WNL -CT Brain: No acute intracranial hemorrhage or signs of edema. A 1.2 cm left frontal calvarial sclerotic lesion likely represents a metastasis given findings on concurrent CTA head and neck. PLAN -will do motivational interview regarding amphetamines and alcohol use #Aspiration pneumonia (resolved) WBC 6.29 -> 5.64 - 08/03 MRSA Nares positive, Viral panel negative - 08/03 Procal elevated at 1.35 - Legionella negative - Vanc/cefe dc'd 08/04 - S/p 3 doses of Azithromycin PLAN Currently on Ceftriaxone for CAP coverage- to complete 7 days- end 08/10 #Liver cancer (HCC) with metastisis -Heavy alcohol use, with history of Hep C -CT abdomen/pelvis showing mild-moderate ascites, nodular liver, possible cirrhosis -The ICU Team consulted Oncology, consult rejected as oncology requested that patient's potential compliance needs to be assessed and insurance verified for follow up. -LDH 335, CEA 6.81, PSA 144.7 -HIV negative PLAN -hepatitis panel ordered -oncology recs -Recommend IR consult to obtain biopsy of inguinal lymph node -Order CA 19-9 -Consider radiation oncology consult on Thursday to see if irradiation of any painful bone lesions for palliation might be appropriate. -Prostate MRI can be decided on after biopsy results are back. Recommend to reconsult when results are back. -will hold off on rad onc consult because patient is not endorsing pain in areas with bone lesions -start propranolol (HR goal 55-60) #R Shoulder pain -started this hospitalization -previous imaging doesn't not visualize whole shoulder PLAN -will get x ray to see if there is a metastasis lesion -start diclofenac gel #Right ventricular dilation POCUS with RV dilatation, TTE 08/03 shows EF 60-65% and mild RV enlargement with normal systolic function. #Urinary retention -patient had acute urinary retention with a phimotic penis, difficult ornelas placement, urology placed suprapubic catheter 08/02 -There is urinary leakage on patient's pad PLAN: -will consult urology to come assess the SP tube - F/u with urology as outpatient for suprapubic catheter exchange DVT PPX: heparin Bowel Regimen: miralax, senna Diet: low sodium diet PT/OT indicated: orderd Lines/Urinary catheter: SP tube, R PIV x2 Code status: Full Dispo: to Patient discussed with attending Dr. Foy. Gutierrez Garcia MD, MPH [facility] Internal Medicine PGY-1 08/07/24, 8:06 AM Subjective: NAEON. Denies N/V/F/C, CP/SOB. Patient states that he feels tired for most of the day. He also expressed that he doesn't like his doctors touching him. He also states that his SP tube is leaking. Objective: Vitals: 08/06/24 1740 08/06/24 2000 08/06/24 2300 08/07/24 0500 BP: 110/62 118/70 Pulse: 92 93 92 Resp: 20 18 17 Temp: 36.9 ?C (98.4 ?F) 37 ?C (98.6 ?F) TempSrc: Oral SpO2: 92% 95% 95% Weight: Height: 24HR INTAKE/OUTPUT: No intake or output data in the 24 hours ending 08/07/24 0806 Physical Exam General: adult supine in bed; no acute distress Eyes: pupils equal & reactive; sclerae anicteric; conjunctivae & lids without lesions Ears/Nose/Mouth/Throat: moist mucous membranes; normal dentition Cardiovascular: regular rate & rhythm; extremities without edema Respiratory: clear to auscultation bilaterally; no retractions or accessory muscle use Gastrointestinal: soft, nontender, distended with fluid wave; +bowel sounds Musculoskeletal: normal range of motion to all extremities; R shoulder bursa tender on palpation Skin: warm & dry; no rash noted; no palpable cutaneous lesions appreciated Neurologic: eyes open spontaneously; follows commands Psychiatric: alert & oriented x 3; appropriate mood & affect Data: Lab Results Component Value Date WBC 5.55 08/07/2024 Hgb 12.6 08/07/2024 Hct 39.0 08/07/2024 MCV 91.8 08/07/2024 Plt Count 138 (L) 08/07/2024 Lab Results Component Value Date CO2 Lvl 29.5 08/06/2024 Chloride Lvl 107 08/06/2024 Sodium Lvl 140 08/06/2024 Potassium Lvl 4.1 08/06/2024 BUN 14 08/06/2024 Lab Results Component Value Date ALT 19 08/06/2024 AST 40 08/06/2024 Medications: Current Facility-Administered Medications Medication Dose Route Frequency Provider Last Rate Last Admin acetaminophen (Tylenol) tablet 650 mg 650 mg Oral q6h PRN Diana Johnson MD 650 mg at 08/07/24 0543 calcium gluconate in NaCl 50mL IVPB 1 g 1 g Intravenous PRN Nneka Washington MD cefTRIAXone (Rocephin) 2 g in sterile water injection 2 g Intravenous q24h Ebenezer Clarke MD 2 g at 08/06/24 1336 dextrose 50 % solution 12.5 g 12.5 g Intravenous PRN Paco Morales MD dextrose 50 % solution 25 g 25 g Intravenous PRN Paco Morales MD folic acid (Folvite) tablet 1 mg 1 mg Oral Daily Nneka Washington MD 1 mg at 08/06/24 0836 glucagon injection 1 mg 1 mg Intramuscular PRN Paco Morales MD heparin injection 7,500 Units 7,500 Units Subcutaneous q8h [facility] Aretha Griffin MD 7,500 Units at 08/07/24 0543 hydrocortisone sod succinate (PF) (Solu-CORTEF) injection 100 mg 100 mg Intravenous Once Aretha Griffin MD hyoscyamine (Anaspaz) disintegrating tablet 125 mcg 125 mcg Sublingual q6h PRN Paco Morales MD magnesium sulfate IVPB 2 g 2 g Intravenous PRN Nneka Washington MD multivitamin (Theragran-M) tablet 1 tablet 1 tablet Oral Daily Nneka Washington MD 1 tablet at 08/06/24 0836 nystatin (Mycostatin) 582070 UNIT/GM powder 1 Application 1 Application Topical PRN Paco Coy MD oxybutynin XL (Ditropan-XL) 24 hr tablet 10 mg 10 mg Oral Daily Ebenezer Clarke MD 10 mg at 08/06/24 0836 polyethylene glycol (PEG) 3350 (Miralax) packet 17 g 17 g Oral Daily Paco Morales MD 17 g at 08/06/24 0836 potassium & sodium phosphates (Phos-NaK) 280-160-250 MG packet 2 packet 2 packet Oral q4h PRN Nneka Washington MD Or potassium & sodium phosphates (Phos-NaK) 280-160-250 MG packet 2 packet 2 packet Per G Tube q4h PRN Nneka Washington MD potassium chloride IVPB 20 mEq 20 mEq Intravenous PRN Nneka Washington MD Or potassium chloride IVPB 10 mEq 10 mEq Intravenous PRN Nneka Washington MD Or potassium chloride CR (Klor-Con M20) ER tablet 20 mEq 20 mEq Oral PRN Nneka Washington MD Or Potassium chloride solution 20 mEq 20 mEq Per G Tube PRN Nneka Washington MD Refresh P.M. (mineral oil-white petrolatum) ophthalmic ointment 1 drop 1 drop Both Eyes BID PRN Diana Johnson MD sennosides (Senokot) tablet 8.6 mg 1 tablet Oral Nightly Paco Morales MD sodium chloride (NS) 0.9 % flush 10 mL 10 mL Intravenous q12h Paco Coy MD 10 mL at 08/06/24 2216 sodium chloride (NS) 0.9 % flush 10 mL 10 mL Intravenous PRN Paco Coy MD sodium chloride 0.9 % infusion 250 mL 250 mL Intravenous PRN Paco Coy MD sodium phosphates 45 mmol in sodium chloride 0.9 % 250 mL IVPB 45 mmol Intravenous PRN Nneka Washington MD thiamine (Vitamin B-1) tablet 100 mg 100 mg Oral Daily Nneka Washington MD 100 mg at 08/06/24 0836 Imaging/Procedures: ECG 12 lead (arrhythmia) SINUS TACHYCARDIA RIGHT BUNDLE BRANCH BLOCK T WAVE ABNORMALITY, CONSIDER INFERIOR ISCHEMIA ABNORMAL ECG NO PREVIOUS ECGS AVAILABLE Confirmed by Michelle Finney ([id number]) on 08/04/2024 12:26:57 AM Cosigned by Jax Foy MD at 08/07/2024 4:57 PM CDT Associated attestation - Jax Foy MD - 08/07/2024 4:57 PM CDT [place] Internal Medicine Team A ATTENDING ATTESTATION I have seen and examined the patient Mr. Abad Harrington on the above dateof service, reviewed the laboratory/imaging/microbiology data/applicable instructional systems design consultant notes, discussed the pertinent case findings with the resident physician Dr. Gutierrez Garcia MD of Medicine Team A, and agree with his assessment and plan as documented below. Abad Harrington is a 69 y.o. M with cirrhosis (suspected 2/2 EtOH and HCV) c/b esophageal varices and ascites, hx of treated HCV, AUD, and amphetamine use who presented with metabolic encephalopathy requiring intubation initially admitted to the ICU. Undergoing oncologic work-up. PSA elevated to 144. CEA elevated at 6.81. CA19-9 pending. 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 Will pursue inguinal lymph node biopsy (seen on CT A/P) with surgery vs IR. Has suprapubic catheter, which was placed for urinary retention and inability to place Ornelas due to pinpoint urethral meatus. Will try to obtain outside records from [facility]. Completing ceftriaxone course for CAP. Starting propranolol for cirrhosis with esophageal varices. Checking HCV RNA to confirm that HCV was cured. Will need EGD and hepatology follow-up as an outpatient. Per family, patient couch surfs at friends' houses. Most recently he was staying with his sister but he reports he does not want to return to her home. PT recommending SNF. Appreciate SW support in arranging safe discharge plan. We appreciate the assistance of the oncology consultation team.We appreciate the efforts of the Social Work/Case Management team in helping to facilitate a safe discharge. ProphylaxisHeparin 7.5k q 8h Lines/Tubes/DrainsPIV x 2, suprapubic catheter Code StatusFull code DispositionPending clinical improvement Marianne Crow Professor, Division of General Internal Medicine [facility] * Maral Logan, PT - 08/06/2024 4:07 PM CDT Evaluation and Treatment Note Patient Name: Abad Harrington Today's Date: 08/06/2024 Preferred Language: Zimbabwean Assessment & Plan Pt is a 69 y.o. M, who was found sitting on a bench outside with bystanders report seeing him sitting there all day. Per report, he was altered and combative on scene but moving all extremities. Given 50mg ketamine IN, 100 serg IM, 10 vec IN, and 30 etomidate by life flight for intubation. The patient has a history of primary liver cancer with metastases to the bone. He is not on any anticoagulation. PMHX limited due to patient's current condition. P.T. consulted for evaluation today. Pt. Tolerated limited activity, only agreeable to bed level repositioning and BLE therapeutic ex's. Pt appeared self-limiting today, demonstrates potential for improvement with continued skilled P.T. services. Will continue to follow while in house, may benefit from post acute care once medically appropriate Assessment: Prognosis: Fair Barriers to Discharge: Medical diagnosis Evaluation/Treatment Tolerance: Other (Comment) (limted by pain, declining to mobilize OOB) Medical Staff Made Aware: Yes Plan: Treatment Plan/Goals Established with Patient/Caregiver: Yes Treatment/Interventions: Bed mobility training, Gait training, Functional activities, Therapeutic exercises, Transfer training PT Plan: Skilled PT PT Frequency: 3-4 times per week until discharge PT Discharge Recommendations: detention facility placement PT Recommended Transfer Status: Total assist Therapy discharge recommendations are made by determining the patient's prior level of function, assessing current function level and establishing rehab potential. The overall discharge plan may be affected by input from Physicians, Care Coordination, medical condition/status, family support and insurance benefits. Subjective Pt c/o pain in R shoulder, also states he is "tired, sleepy, wants to rest in bed." Pt. Agreeable to P.T. bed level evaluation after encouragement. Current Problem: Pain, decreased safety/judgement, decreased strength, decreased activity tolerance and limited mobility - below his baseline function Pain: 5 Home Living: Type of Home: Trailer Lives With: Alone Home Adaptive Equipment: Cane Prior Level of Function: Level of [place]: Ambulated with assistive device (comment) Receives Help From: Family Precautions: Medical Precautions: fall, decreased safety/judgement Cognition: Overall Cognitive Status: Impaired Behavior/Cognition: Lethargic Arousal/Alertness: Delayed responses to stimuli Orientation Level: Disoriented to time, Disoriented to situation Following Commands: Follows 1 step commands with increased time Safety Judgment: Decreased awareness of need for assistance Functional Assessments: Bed Mobility Bed Mobility 1: Level of Assistance 1: Substantial/Max assistance Bed Mobility To/From: Roll left/right Assistive Devices And Adaptive Equipments: Bed rail Bed Mobility 2: Level of Assistance 2: Dependent Bed Mobility To/From: Other (scooting up in bed) Extremity Assessments: RLE Assessment RLE Assessment: Exceptions to WFL (ROM WFL, 3/5 strength) LLE Assessment LLE Assessment: Exceptions to WFL (rom wfl, strength 3/5) CognitionOverall Cognitive Status: Impaired Behavior/Cognition: Lethargic Arousal/Alertness: Delayed responses to stimuli Orientation Level: Disoriented to time, Disoriented to situation Following Commands: Follows 1 step commands with increased time Safety Judgment: Decreased awareness of need for assistance TreatmentP.T. evaluation performed. Pt. Found resting supine, lethargic, calm cooperative only for bed level activity. Pt. Instructed in precautions, proper positioning for comfort. Pt. Educated at length in importance of mobility, potential risks of immobility, role of P.T., P.T. POC and goals. Pt. Agreeable to BLE therapeutic ex's only after encouragement. Performed BLE A/AROM therapeutic ex's x 10 reps major planes. Performed bed mobiltiy partial rollling side to side with max assist, then scooted up in bed with total assist. Pt. Declined further activity. CB and essentials in reach, lines in tact, RN informed/aware. AM-PAC Basic Mobility:Turning in bed without bedrails: A Lot Lying on back to sitting on edge of flat bed: A Lot Bed to chair: A Lot Standing up from chair: A Lot Walk in room: A Lot Climbing 3-5 stairs: Total Mobility Inpatient Raw Score: 11 -[facility] Goal: 4 Bed activity Patient Education:Education Documentation Physical Therapy Plan of Care, taught by Maral Ford PT at 08/06/2024 4:04 PM. Learner: Patient Readiness: Nonacceptance Method: Explanation, Demonstration Response: No Evidence of Learning Comment: pt. not agreeable to transfer OOB despite education/encouragement Education CommentsNo comments found. Goal:Encounter Goals Encounter Goals (Active) Patient will perform bed mobility rolling side to side with min/CGA assist Start: 08/06/24 Expected End: 08/13/24 Patient will perform transfers supine to sit, sit to supine with min/CGA Start: 08/06/24 Expected End: 08/13/24 Patient wilmer perform standing/pre-gait activity with min/CGA assist, DME as indicated Start: 08/06/24 Expected End: 08/13/24 Patient will progress to ambulation activity 50' or > with min/CGA assist, DME as indicated Start: 08/06/24 Expected End: 08/13/24 Treatment Note: If this is the last documented treatment, then it will signify discharge from acute care prior to discharge from the therapy service and will serve as the discharge summary. Maral Ford PT * Gutierrez Garcia MD - 08/06/2024 8:26 AM CDT Medicine Team A Progress Note Pt identified using 2 identifiers: Name and Assessment and Plan: Mr Abad Harrington is a 69 year old male with past methamphetamine and alcohol use disorder, hepatitis C who was found altered and combative on scene but moving all extremities after leaving hospice facility. Intubated on life flight, now extubated tolerating 2L NC well. 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 #Metabolic encephalopathy UDS positive for amphetamines and benzos on admission Ammonia WNL -CT Brain: No acute intracranial hemorrhage or signs of edema. A 1.2 cm left frontal calvarial sclerotic lesion likely represents a metastasis given findings on concurrent CTA head and neck. PLAN -Continue to monitor -will do motivational interview regarding amphetamines and alcohol use #Aspiration pneumonia (resolved) WBC 6.29 -> 5.64 - 08/03 MRSA Nares positive, Viral panel negative - 08/03 Procal elevated at 1.35 - Legionella negative - Vanc/cefe dc'd 08/04 - S/p 3 doses of Azithromycin PLAN Currently on Ceftriaxone for CAP coverage- to complete 7 days- end 08/10 #Liver cancer (HCC) with metastisis -Heavy alcohol use, with history of Hep C -CT abdomen/pelvis showing mild-moderate ascites, nodular liver, possible cirrhosis -The ICU Team consulted Oncology, consult rejected as oncology requested that patient's potential compliance needs to be assessed and insurance verified for follow up. PLAN -HIV, hepatitis panel ordered -oncology recs -Recommend IR consult to obtain biopsy. -Order CEA, CA 19-9, LDH, PSA. -Consider radiation oncology consult on Thursday to see if irradiation of any painful bone lesions for palliation might be appropriate. #Right ventricular dilation POCUS with RV dilatation, TTE 08/03 shows EF 60-65% and mild RV enlargement with normal systolic function. #Urinary retention -patient had acute urinary retention with a phimotic penis, difficult ornelas placement, urology placed suprapubic catheter PLAN: Trial capping suprapubic catheter today and monitor for auto-micturition via urethra - F/u with urology as outpatient for suprapubic catheter exchange DVT PPX: heparin Bowel Regimen: miralax, senna Diet: low sodium diet PT/OT indicated: orderd Lines/Urinary catheter: SP tube, R PIV x2 Code status: Full Dispo: to home pending clinical improvement Patient discussed with attending Dr. Foy. Gutierrez Garcia MD, MPH [facility] Internal Medicine PGY-1 08/06/24, 8:27 AM Subjective: NAEON. Denies N/V/F/C, CP/SOB. Patient states that he doesn't want to be involved in care. He said that he wants his son to be involved. Patient demonstrates adequate medical decision-making capacity including understanding of information presented, expression of choice, appreciation of decision and medical reasoning. He found out that he was diagnosed with liver cancer yesterday. Patient wanted time to think about if he wants to pursue cancer workup/treatment. Sister tried contacting team today. I called son and he said he has not been present in father's life and that he crashes at friends' places throughout the past few years, that he is a heavy drinker, and has a history of hepatitis C that was possibly treated. Objective: Vitals: 08/05/24 2353 08/06/243 08/06/2434208/06/[id number] BP: 128/67 Pulse: 89 90 Resp: 18 20 Temp: 36.7 ?C (98 ?F) TempSrc: Oral Oral SpO2: 94% 94% Weight: Height: 24HR INTAKE/OUTPUT: Intake/Output Summary (Last 24 hours) at 08/06/2024 0827 Last data filed at 08/06/2024 0500 Gross per 24 hour Intake 20 ml Output 1375 ml Net -1355 ml Physical Exam Declined PE Data: Lab Results Component Value Date WBC 4.38 08/05/2024 Hgb 12.9 08/05/2024 Hct 38.7 08/05/2024 MCV 94.2 08/05/2024 Plt Count 141 (L) 08/05/2024 Lab Results Component Value Date CO2 Lvl 25.5 08/05/2024 Chloride Lvl 109 (H) 08/05/2024 Sodium Lvl 139 08/05/2024 Potassium Lvl 3.9 08/05/2024 BUN 9 08/05/2024 Lab Results Component Value Date ALT 17 08/05/2024 AST 37 08/05/2024 Medications: Current Facility-Administered Medications Medication Dose Route Frequency Provider Last Rate Last Admin acetaminophen (Tylenol) tablet 650 mg 650 mg Oral q6h PRN Diana Johnson MD 650 mg at 08/06/24 0624 calcium gluconate in NaCl 50mL IVPB 1 g 1 g Intravenous PRN Nneka Washington MD cefTRIAXone (Rocephin) 2 g in sterile water injection 2 g Intravenous q24h Ebenezer Clarke MD 2 g at 08/05/24 1410 dextrose 50 % solution 12.5 g 12.5 g Intravenous PRN Paco Morales MD dextrose 50 % solution 25 g 25 g Intravenous PRN Paco Morales MD folic acid (Folvite) tablet 1 mg 1 mg Oral Daily Nneka Washington MD 1 mg at 08/05/24 0817 glucagon injection 1 mg 1 mg Intramuscular PRN Paco Morales MD heparin injection 7,500 Units 7,500 Units Subcutaneous q8h AIDA Aretha Griffin MD 7,500 Units at 08/06/24 0519 hydrocortisone sod succinate (PF) (Solu-CORTEF) injection 100 mg 100 mg Intravenous Once Aretha Griffin MD hyoscyamine (Anaspaz) disintegrating tablet 125 mcg 125 mcg Sublingual q6h PRN Paco Morales MD magnesium sulfate IVPB 2 g 2 g Intravenous PRN Nneka Washington MD multivitamin (Theragran-M) tablet 1 tablet 1 tablet Oral Daily Nneka Washington MD 1 tablet at 08/05/24 0817 nystatin (Mycostatin) 178083 UNIT/GM powder 1 Application 1 Application Topical PRN Paco Coy MD oxybutynin XL (Ditropan-XL) 24 hr tablet 10 mg 10 mg Oral Daily Ebenezer Clarke MD 10 mg at 08/05/24 0817 polyethylene glycol (PEG) 3350 (Miralax) packet 17 g 17 g Oral Daily Paco Morales MD 17 g at 08/05/24 0817 potassium & sodium phosphates (Phos-NaK) 280-160-250 MG packet 2 packet 2 packet Oral q4h PRN Nneka Washington MD Or potassium & sodium phosphates (Phos-NaK) 280-160-250 MG packet 2 packet 2 packet Per G Tube q4h PRN Nneka Washington MD potassium chloride IVPB 20 mEq 20 mEq Intravenous PRN Nneka Washington MD Or potassium chloride IVPB 10 mEq 10 mEq Intravenous PRN Nneka Washington MD Or potassium chloride CR (Klor-Con M20) ER tablet 20 mEq 20 mEq Oral PRN Nneka Washington MD Or Potassium chloride solution 20 mEq 20 mEq Per G Tube PRN Nneka Washington MD Refresh P.M. (mineral oil-white petrolatum) ophthalmic ointment 1 drop 1 drop Both Eyes BID PRN Diana Johnson MD sennosides (Senokot) tablet 8.6 mg 1 tablet Oral Nightly Paco Morales MD sodium chloride (NS) 0.9 % flush 10 mL 10 mL Intravenous q12h Paco Coy MD 10 mL at 08/06/24 0529 sodium chloride (NS) 0.9 % flush 10 mL 10 mL Intravenous PRN Paco Coy MD sodium chloride 0.9 % infusion 250 mL 250 mL Intravenous PRN Paco Coy MD sodium phosphates 45 mmol in sodium chloride 0.9 % 250 mL IVPB 45 mmol Intravenous PRN Nneka Washington MD thiamine (Vitamin B-1) tablet 100 mg 100 mg Oral Daily Nneka Washington MD 100 mg at 08/05/24 0817 Imaging/Procedures: ECG 12 lead (arrhythmia) SINUS TACHYCARDIA RIGHT BUNDLE BRANCH BLOCK T WAVE ABNORMALITY, CONSIDER INFERIOR ISCHEMIA ABNORMAL ECG NO PREVIOUS ECGS AVAILABLE Confirmed by Michelle Finney ([id number]) on 08/04/2024 12:26:57 AM Cosigned by Jax Foy MD at 08/06/2024 7:24 PM CDT Associated attestation - Valdez, Jax Garcia MD - 08/06/2024 7:24 PM CDT [place] Internal Medicine Team A ATTENDING ATTESTATION I have seen and examined the patient Mr. Abad Harrington on the above dateof service, reviewed the laboratory/imaging/microbiology data/applicable instructional systems design consultant notes, discussed the pertinent case findings with the resident physician Dr. Gutierrez Garcia MD of Medicine Team A, and agree with his assessment and plan as documented below. Abad Harrington is a 69 y.o. M with cirrhosis, hx of treated HCV, AUD, and amphetamine use who presented with metabolic encephalopathy requiring intubation initially admitted to the ICU, now transferring to floor. AMS resolved. Has suprapubic catheter, which was placed for urinary retention and inability to place Ornelas due to pinpoint urethral meatus. Offered capping trial but patient prefers to continue with suprapubic catheter. Will try to obtain outside records from [facility]. Unclear what oncologic work-up has been done. Patient would like to pursue oncology work-up and treatment, appreciate oncology consult. Completing ceftriaxone course for CAP. Per family, patient is unhoused and couch surfs at friends' houses. Most recently he was staying with his sister but he reports he does not want to return to her home. Appreciate support in arranging safe discharge plan. We appreciate the assistance of the oncology consultation team.We appreciate the efforts of the Social Work/Case Management team in helping to facilitate a safe discharge. ProphylaxisHeparin 7.5k q 8h Lines/Tubes/DrainsPIV x 2, suprapubic catheter Code StatusFull code DispositionPending clinical improvement Marianne Crow Professor, Division of General Internal Medicine Formerly [facility] [employer] * Kriss Bundy MD - 08/05/2024 8:26 PM CDT TRANSFER ACCEPTANCE NOTE Mr Abad Harrington is a 69 year old male who was found altered and combative on scene but moving all extremities. Intubated on life flight, now extubated tolerating 2L NC well. The patient has a history of primary liver cancer with metastases to the bone. Pertinent Floor items for follow up -Patient will need follow up for suprapubic catheter exchange -Oncology for prognostication and options for management. -Follow up with social work on attempts to contact patient's children/disposition. See SW note on 08/05 Assessment & Plan AMS (altered mental status) (Resolved: 08/05/2024) Metabolic encephalopathyUDS positive for amphetamines and benzos Ammonia WNL -CT Brain: No acute intracranial hemorrhage or signs of edema. A 1.2 cm left frontal calvarial sclerotic lesion likely represents a metastasis given findings on concurrent CTA head and neck. AOX4 on transfer to floor. PLAN-Continue to monitor Aspiration pneumonia (CMS/HCC) (HCC) WBC 6.29 -> 5.64 - 08/03 MRSA Nares positive, Viral panel negative - 08/03 Procal elevated at 1.35 - Legionella negative - Vanc/cefe dc'd 08/04 - S/p 3 doses of Azithromycin PLANCurrently on Ceftriaxone for CAP coverage- to complete 7 days- end 08/10 Acute hypoxemic respiratory failure (HCC) (Resolved: 08/05/2024) Liver cancer (HCC)Reported History, no further information on work up so far. CT abdomen/pelvis showing mild-moderate ascites, nodular liver, possible cirrhosis No pocket for paracentesis PLANT ICU Team consulted Oncology, consult rejected as oncology requested that patient's potential compliance needs to be assessed and insurance verified for follow up. Please re-consult as patient would like to know treatment options and what is possible for him in terms of prognosis, while inpatient this information would assist in his decision making and oncology expertise would be appreciated. He is not interested in operative options. -See 08/05/2024 Social work note for details regarding facilities where patient has been. -Please re-engage with patient and re-consult Oncology Shock (CMS/HCC) (HCC) (Resolved: 08/05/2024) Other cirrhosis of liver (HCC)As above Amphetamine dependency (CMS/HCC) (HCC) Active smoker as well, does not want patch. [employer] Mover on cessation Metastatic cancer (HCC) As above, under liver cancer Right ventricular dilation POCUS with RV dilatation, TTE 08/03 shows EF 60-65% and mild RV enlargement with normal systolic function. Urinary retention Trial capping suprapubic catheter today and monitor for auto-micturition via urethra - F/u with urology as outpatient for suprapubic catheter exchange Severe sepsis with septic shock (CODE) (HCC) (Resolved: 08/05/2024) Subjective Mr. Harrington states that he feels homesick. He wants to go to his own home. He does not recall the events before he is transferred by [facility]. However, he reports an unpleasant relationship with his sister who is meant to be his medical power of securities attorney. Patient really wants to get in touch with his younger son he wants his son to take care of him. ObjectiveLast Recorded Vitals Blood pressure 125/73, pulse 88, temperature 36.7 ?C (98 ?F), resp. rate 18, height 1.803 m (5' 10.98"), weight 117 kg (257 lb 15 oz), SpO2 96%. Gen: AAO x3, NAD, comfortable on 2L Nasal CanulaHEENT: Normocephalic, anicteric sclera, moist mucous membranes. Neck: Supple Resp: lungs clear to auscultation bilaterally CV: RRR, S1S2, Warm, well-perfused extremities Abd: BS present, abd is soft, non-tender, non-distended. Extrem: Palpable pedal pulses. No edema MSK: Limited ROM of bilateral shoulders, worse on the right side. Limited abduction, flexion and extension Skin: Warm, luicana, dry-scaling and hyperpigmentation of bilateral upper extremities, bilateral lower legs as well. Neuro: Alert and oriented, sensation grossly intact Psych: Appropriate mood and affect. Answers questions appropriately Quality measures: Code Status: Full DVT Prophylaxis Heparin SC Pain Regimen: N/A Bowel Regimen: Senna, MiraLAX IV Lines/Tubes/Ornelas: PIV, suprapubic catheter PT/OT: Consulted Current Diet: Adult Diet Low Sodium Disposition: Pending contact with son Kriss Bundy MDInternal Medicine PGY2 [facility] Cosigned by Jax Foy MD at 08/08/2024 7:56 PM CDT Associated attestation - Valdez, Jax Garcia MD - 08/08/2024 7:56 PM CDT Patient transferred from MICU to Medicine Team A overnight. Please see my attestation on progress note by Dr. Gutierrez Garcia on 08/06. Marianne Crow Professor, Division of General Internal Medicine [facility] * Taco Enriquez LCSW - 08/05/2024 3:20 PM CDT Social Work Note SW contacted pt's sister, Bee Hill([phone]) to discuss pt's NOK. Bee stated pt has two sons, Nisha Harrington who she can only reach via [employer] messenger and Felice Harrington([phone]). SW reached out to pt's son, Felice Harrington([phone]), Felice stated that pt was previously hospitalized at [facility], June of 2024. Pt was then dc to his sister, Bee Hill's home on hospice. Pt's sister was not able to meet pt's needs at her home. Pt was placed at [facility] with [facility] hospice. LURDES reached out to [facility] nurse, Nneka([phone]) who stated pt did not want to be at facility and left AMA on 07/30/2024, pt had capacity at the time to make his own decisions. Pt left via ambulance to his son, Nisha Ross address. Nneka did not have the address or phone number of Nisha Harrington. LURDES reached out to [facility] Hospice admissions staff, Mariana([phone]) who stated pt was on hospice from 06/26-08/03/2024. Pt's NOK are his two sons, Nisha Harrington and Felice Harrington([phone]). LURDES will continue to follow. * Jax Barber - 08/05/2024 12:43 PM CDT Case Management Note CM met with pt at bedside who stated he was on hospice prior to admission however did not know the name of the agency. Pt stated he lives in [facility] in [place], [place] alone. Pt reports NOK is 2 Sons Nisha Cullen and Felice Harrington( ). CM contacted pt's sister, Bee Hill who reports pt was recently discharged to her home from [facility] with [facility] Hospice. Sister reports APS case was opened due to family not being able to care for pt any longer. Sister reports pt has no running electricity or water at his home and is not able to care for himself. Sister reports pt's son Nisha moved pt into a hotel with him prior to this admission however she is not sure if the APS case is open or if pt was still on hospice. Bee stated she did not know pt's son, Nisha's number however would attempt to obtain it. CM to f/u with [facility] Hospice, Pt's son and APS. Jax Barber LMSW, [facility]- Screen Maker * Courtney De Santiago PT - 08/05/2024 9:00 AM CDT Encounter Note Patient Name: Abad Harrington Today's Date: 08/05/2024 Missed Treatment Time and Reason 0900 0905 Patient evaluation attempted and pt. refusing any mobility, encouraged to attempt OOB activity and benefits of mobility in house provided but pt. cont. to refuse. PT will attempt at later time. Courtney De Santiago PT * Daphne Peres OT - 08/05/2024 8:55 AM CDT Occupational Therapy OT Encounter Note Patient Name: Abad Harrington Today's Date: 08/05/2024 Missed Treatment Time and Reason Missed Treatment Reason: Patient unwilling to participate YOLI Dial cleared OT eval. Upon therapist arrival, pt. Adamantly refusing OT evaluation. Despite MAX encouragement and edu on importance of OOB mobility, pt. Continued to decline OOB eval and even EOB/bed level assessment, reporting fatigue and declining session. Will follow up at next available opportunity Daphne Peers OT * Luc Flores MD - 08/05/2024 7:23 AM CDT MICU Progress Note Name: Abad Harrington : 1955 Admission Date: 08/02/2024 Admission Diagnosis/Diagnoses: AMS (altered mental status) [R41.82] Hospital Day: 3 Assessment The patient Abad Harrington is a 69 year old male who was found sitting on a bench outside with bystanders report seeing him sitting there all day. Per report, he was altered and combative on scene but moving all extremities. Given 50mg ketamine IN, 100 serg IM, 10 vec IN, and 30 etomidate by life flight for intubation. The patient has a history of primary liver cancer with metastases to the bone. He is not on any anticoagulation. PMHX limited due to patient's current condition and daughter/son being unsure of any hx besides cancer. Urology consulted for difficult Ornelas placement. 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 The meatus was visualized and noted to be pinpoint. Upon arrival to the ICU, patient is intubated on ventilator AC/VC+ peep 10,FiO2 70%, , sedated on fentanyl 100/hr and versed 3mg/hr. Blood pressure 91/49 (63), arterial line in place, heart rate 86, RR 24, O2 saturation 97%. On physical exam, the patient has a suprapubic catheter in place, obesity with ascites, crusted skin bilateral forearms, and a phimotic penis. The patient's real name is Abad Harrington and 1955. He is nowextubated and A&Ox4 stable for transfer to floor. Patient will need follow up for suprapubic catheter exchange, oncology for prognostication and options for management, and encouragement of PO fluid intake. Patient's sister [phone] Bee Hill Principal Problem:AMS (altered mental status) Active Problems: Metabolic encephalopathy Aspiration pneumonia (CMS/HCC) (HCC) Acute hypoxemic respiratory failure (HCC) Liver cancer (HCC) Shock (CMS/HCC) (HCC) Pleural effusion, right Other cirrhosis of liver (HCC) Amphetamine dependency (CMS/HCC) (HCC) Metastatic cancer (HCC) Right ventricular dilation Urinary retention Severe sepsis with septic shock (CODE) (HCC) Diabetes mellitus (HCC) Neuro:#Acute toxic metabolic encephalopathy Sedation: wean versed and fentanyl, avoid precedex d/t hypotension -RASS Goal: 0 to -1 -Restraints: bilateral wrist while intubated -pending UDS/toxicology workup, ethanol -UDS positive for amphetamines and benzos Ammonia WNL -CT Brain: No acute intracranial hemorrhage or signs of edema. A 1.2 cm left frontal calvarial sclerotic lesion likely represents a metastasis given findings on concurrent CTA head and neck. Plan: - Continue to monitor pts mentation as sedation is discontinued - Thiamine daily CV#Hypotension, Distributive versus Hypovolemic Shock #Dysrhythmia Keep Mag >2 and K>4 Give 2 g mag now for replacement POCUS showing RV dilation, no effusion Received 1 L of IVF, use pressors if needed and hold off on fluids Troponin 82 BNP 133 TTE 08/03 shows EF 60-65% Plan: None Respiratory#Acute hypoxemic respiratory failure requiring invasive mechanical ventilation #Right sided pleural effusion #L sided consolidation, atelectasis versus pneumonia Extubated 08/[address] Chest showing R sided pleural effusion with left sided consolidation versus atelectasis Active smoker, does not want patch Plan: -On HFNC -Head of bed @ 30?-45? -Provide cessation counseling -On azithromycin ceftriaxone for CAP coverage GI#Metastatic liver cancer with metastases to bones #Inability to place ornelas catheter placement s/p suprapubic catheter placement by urology -OG Tube in place -suprapubic catheter in place. Urology consulted CT abdomen/pelvis showing mild-moderate ascites, nodular liver, possible cirrhosis No pocket for paracentesis Plan:-PUD prophylaxis dc'd following extubation -Nutrition: start tube foods via OG - Consulted Oncology, consult rejected as oncology requested that patient's potential compliance is assessed and insurance is verified for follow up. Please re-consult as patient would like to know treatment options and what is possible for him in terms of prognosis, while inpatient this information would assist in his decision making and oncology expertise would be appreciated. He is not interested in operative options. - Trial capping suprapubic catheter today and monitor for auto-micturition via urethra - F/u with urology as outpatient for suprapubic catheter exchange ID #Pneumonia - WBC 6.29 -> 5.64 - UA negative nitrites - 08/03 MRSA Nares positive - Viral panel negative - 08/03 Procal elevated at 1.35 - Legionella negative - Vanc/cefe dc'd 08/04 Plan: - S/p 3 doses of Azithromycin and is currently on Ceftriaxone for CAP coverage Renal/electrolytes -Electrolyte replacement: K and Mg -Cr 0.89 - Oxybutynin 10mg QD Heme/Onc#Metastatic liver cancer with bone mets -hemoglobin stable -Please re-consult oncology Endocrine-Glucose control: low dose SSI prn -Glucose range: 140-180 [id number]/OT consult: when applicable Consults:urology ICU CHECKLIST -Code Status: Full code -Feeds/fluids: start oral feeds -Suprapubic catheter Date placed: 08/02 -Thromboprophylaxis: heparin subq -Head of bed: elevated -Glycemic control: SSI prn -SBT: in am -Bowel regimen: miralax prn -Indwelling lines: arterial line, PIV -De-escalate drugs: Fentanyl, versed Family contacts: patient's son Nisha Harrington, SW attempting to reach family Patient's sister [phone] Bee Hill Disposition: Transfer to floor Manuel Mcknight Physician, PGY-1 [facility] | Physical Medicine & Rehabilitation Subjective/24h Events: No acute events overnight. Patient evaluated at bedside. No complaints. Objective: Physical Exam: Vitals Current 24 Hour Min/Max T: 36 ?C (96.8 ?F) Temp Min: 35.4 ?C (95.7 ?F) Max: 36.2 ?C (97.1 ?F) HR: 83 Pulse Min: 78 Max: 96 BP: 120/57 BP Min: 106/55 Max: 129/78 RR: 17 Resp Min: 15 Max: 32 O2S: 92 % SpO2 Min: 92 % Max: 99 % 24HR INTAKE/OUTPUT:Intake/Output Summary (Last 24 hours) at 08/05/2024 0723 Last data filed at 08/05/2024 0600 Gross per 24 hour Intake 380 ml Output 1625 ml Net -1245 ml Vent Settings: NONE WeightWt Readings from Last 1 Encounters: 08/03/24 117 kg (257 lb 15 oz) General Appearance: Awake, alert, no apparent distress HEENT: NC/AT, conjunctivae/corneas/sclerae clear, no nasal drainage or sinus tenderness, oropharynx clear, neck supple Lungs: inspiratory crackles on auscultation Heart: RRR Abdomen: soft, non-tender & nondistended. Hematologic/Lymphatics: no cervical, supraclavicular, axillary lymphadenopathy Musculoskeletal: No joint tenderness or swelling. Neurologic: Mental status intact, Sensation grossly intact. Labs:Recent Results (from the past 16 hours) POC Glucose Collection Time: 08/04/24 3:42 PM Result Value Ref Range POC Glu 118 (H) 70 - 99 mg/dL POC Glu Comment 1 Notified RN/MD POC Performing Location SP8 ICU POC Glucose Collection Time: 08/04/24 8:09 PM Result Value Ref Range POC Glu 126 (H) 70 - 99 mg/dL POC Performing Location C2 MICU POC Glucose Collection Time: 08/04/24 11:26 PM Result Value Ref Range POC Glu 113 (H) 70 - 99 mg/dL POC Performing Location C2 MICU Basic Metabolic Panel Collection Time: 08/05/24 3:37 AM Result Value Ref Range Glucose Lvl 94 70 - 99 mg/dL BUN 9 9 - 23 mg/dL Creatinine Lvl 0.72 0.7 - 1.30 mg/dL Sodium Lvl 139 136 - 145 mEq/L Potassium Lvl 3.9 3.4 - 4.5 mEq/L Chloride Lvl 109 (H) 98 - 107 mEq/L CO2 Lvl 25.5 20.0 - 31.0 mEq/L Anion Gap 8.4 (L) 10.0 - 20.0 mEq/L Calcium Lvl 8.1 (L) 8.3 - 10.6 mg/dL eGFR 99 >60 mL/min/1.73m2 Magnesium Level Collection Time: 08/05/24 3:37 AM Result Value Ref Range Magnesium 1.83 1.6 - 2.60 mg/dL Phosphorus Level Collection Time: 08/05/24 3:37 AM Result Value Ref Range Phosphorus Lvl 3.3 2.4 - 5.1 mg/dL Calcium Level Ionized Whole Blood Collection Time: 08/05/24 3:37 AM Result Value Ref Range BKR IONIZED CA, WB 1.04 (L) 1.05 - 1.25 mmol/L BKR IONIZED CA, WB (PH=7.4) 1.07 1.05 - 1.25 mmol/L Hepatic Function Panel Collection Time: 08/05/24 3:37 AM Result Value Ref Range Protein 5.9 5.7 - 8.2 g/dL Albumin Lvl 2.0 (L) 3.4 - 5.0 g/dL Bilirubin Total 0.61 0.20 - 1.10 mg/dL Bilirubin Direct 0.4 (H) <=0.3 mg/dL Bilirubin Indirect 0.2 0.0 - 1.0 mg/dL Alkaline Phosphatase 119 (H) 46 - 116 U/L AST 37 12 - 40 U/L ALT 17 7 - 40 U/L Globulin, Calc 3.9 2.0 - 4.0 g/dL Albumin/Globulin Ratio 0.51 (L) 0.7 - 1.6 Radiology Review: Reviewed Medications:Scheduled: cefTRIAXone, 2 g, Intravenous, q24h folic acid, 1 mg, Oral, Daily heparin, 7,500 Units, Subcutaneous, q8h AIDA hydrocortisone sodium succinate, 100 mg, Intravenous, Once multivitamin, 1 tablet, Oral, Daily oxybutynin XL, 10 mg, Oral, Daily polyethylene glycol (PEG) 3350, 17 g, Oral, Daily sennosides, 1 tablet, Oral, Nightly sodium chloride, 10 mL, Intravenous, q12h thiamine, 100 mg, Oral, Daily Prn: PRN medications: calcium gluconate, dextrose, dextrose, glucagon, hyoscyamine, magnesium sulfate, nystatin, potassium & sodium phosphates OR potassium & sodium phosphates, potassium chloride OR potassium chloride OR potassium chloride OR Potassium chloride, sodium chloride, sodium chloride, sodium phosphates 45 mmol in sodium chloride 0.9 % 250 mL IVPB Drips: Cosigned by Ebenezer Clarke MD at 08/05/2024 8:01 PM CDT Associated attestation - Ebenezer Clarke MD - 08/05/2024 8:01 PM CDT [facility] ICU Attending Attestation I have reviewed the note written by the resident on the same day and agree with the exam, assessment, and plan as documented. I have independently examined and discussed the patient with the team. I have also personally reviewed the laboratory and diagnostic data. Below are my modifications or additions. I spent 37 cumulative minutes of non-concurrent time directly related to this individual patient's care involving the evaluation, coordination, and management of the patient. This includes only time spent at the immediate bedside or elsewhere on the patient's floor or unit coordinating this patient's care and is not inclusive of any time spent performing invasive procedures. Marianne Reyna Professor Pulmonary and Critical Care Faculty [facility] * Jax Barber - 08/04/2024 2:11 PM CDT Case Management Note CM attempted to complete TPA at bedside however pt asleep and did not respond to verbal stimuli. Jax Barber LMSW, [facility]- Screen Maker * Daphne Peres OT - 08/04/2024 1:00 PM CDT Occupational Therapy OT Encounter Note Patient Name: Reyna Ascencio Today's Date: 08/04/2024 Missed Treatment Time and Reason Missed Treatment Reason: Patient unwilling to participate OT eval orders received and chart reviewed. Upon therapist arrival, pt. Provided PLOF/social hx, however, declined EOB/OOB and even bed level tx despite MAX encouragement. Pt. Reporting fatigue and adamantly requesting time to rest. Will follow up at next available opportunity Daphne Peres OT * Courtney De Santiago PT - 08/04/2024 12:09 PM CDT Encounter Note Patient Name: Reyna Ascencio Today's Date: 08/04/2024 Missed Treatment Time and Reason [id number] Patient chart reviewed and PT attempted, pt. refused EOB or OOB activity, citing pain and fatigue, unable to cooperate even w/ MAX encouragement, able to move B LE AG, seen able to roll in bed L/R INDEPENDENTLY, as per RN pt. ambulated to restroom w/ CGA earlier. PT will attempt again tomorrow. Courtney De Santiago PT * Jocelyne Leal PharmD - 08/04/2024 10:38 AM CDT Vancomycin Dosing and Monitoring Protocol - Sign-Off Note The Department of Pharmacy will no longer be managing Vancomycin therapy for this patient because: Therapy is being discontinued Thank you for allowing us to participate in the care of this patient. We will sign off for now. Please re-consult if needed. Jocelyne Leal PharmD * Ebenezer Clarke MD - 08/04/2024 10:22 AM CDT [place] Attending Critical Care Progress Note / Addendum I have reviewed the note written by the resident on the same day and agree with the exam, assessment, and plan as documented. I have independently examined and discussed the patient with the team. I have also personally reviewed the laboratory and diagnostic data. Below are my modifications or additions. Name: Reyna Ascencio ) : Age: 89 y.o. Listed Gender: male) Date admitted: 08/02/2024 LOS: 2 Chief Complaint Patient presents with Altered Mental Status Heat Exposure Intake and Output: Intake/Output Summary (Last 24 hours) at 08/04/2024 1022Last data filed at 08/04/2024 0825 Gross per 24 hour Intake 439.67 ml Output 1950 ml Net -1510.33 ml Labs: Recent Labs 08/02/24164908/02/24230208/02/24231608/03/2431208/04/24 0146 NA 140 < > 142 138 140 K 3.8 < > 3.8 3.7 4.0 CO2 22.9 -- 22.9 -- 24.6 BUN 23 -- 23 -- 13 CREATININE 0.89 -- 0.95 -- 0.74 < > = values in this interval not displayed. Recent Labs 08/02/24164908/02/24230208/02/24231608/03/2431208/04/24 0146 WBC 7.65 -- 6.29 -- 5.64 HCT 38.0 < > 39.3 38.0* 37.8 HGB 12.3* -- 12.9 -- 11.9* < > = values in this interval not displayed. Recent Labs08/02/241649 INR 1.30* PTT 34.6 No components found for: "ISTATPH", "SGWRZTXL35", "ISTATPO2", "ISTATBICARB", "ISTATBASEEXC", "[id number]" @MICROBIOLOGYRESULTS@ Imaging:XR abdomen 1 view Result Date: 08/03/2024 EXAM: XR ABDOMEN 1 VIEW DATE: 08/03/2024 5:40 INDICATION: OG tube ADDITIONAL INFORMATION: None. COMPARISON: CT abdomen pelvis 08/02/2024 TECHNIQUE: Single frontal view of the abdomen. FINDINGS: Lines and tubes: Gastric suction tube with tip overlying the duodenojejunal junction. Overlying EKG leads. Lower thorax: Retrocardiac opacities with patchy airspace opacities. Bilateral pleural effusions. Bowel: Nonobstructive bowel gas pattern. Solid organs: No abnormal mass or organomegaly seen. Calcifications: No abnormal calcifications found. Bones: Unchanged. * Gastric suction tube as above. CT ABDOMEN PELVIS W IV CONTRASTResult Date: 08/02/2024 EXAM: CT ABDOMEN AND PELVIS WITH CONTRAST DATE: 08/02/2024 18:33 INDICATION: fpund with leevated temp and AMS ADDITIONAL INFORMATION: None. COMPARISON: None. TECHNIQUE: Volumetric CT of the abdomen and pelvis acquired following the intravenous administration of contrast. Axial, coronal and sagittal images are provided. FINDINGS: Chief Ii Dispatcher: Noncontributory. Lines, tubes and hardware: Enteric tube terminates at the gastric antrum. Lower thorax: Left lower lobe consolidation. Small right pleural effusion with associated compressive atelectasis. Lower thoracic findings are as reported on concurrently obtained chest CT of the same date. Liver: Hepatic morphology consistent with cirrhosis. Biliary tree: No intra- or extrahepatic bile duct dilation. Gallbladder: Normal. Pancreas: No pancreatic duct dilatation. Spleen: Enlarged without focal lesion. Adrenals: Normal. Kidneys and ureters: Normal. Bladder: Partially obscured by streak artifact. Otherwise within normal limits. Reproductive organs: Limited evaluation due to significant streak artifact from bilateral total hip arthroplasties. Gastrointestinal tract: Lower esophagus: Normal. Stomach: Normal. Small bowel: No abnormally dilated bowel loops. Colon: Moderate stool burden. Appendix: Normal. Peritoneum, mesentery and retroperitoneum: Moderate ascites. No free air or loculated fluid. Soft tissue nodules within the. Lymph nodes: Bulky retroperitoneal lymphadenopathy. Vasculature: Aorta and branches: Normal. IVC and veins: Normal. Portal and mesenteric vasculature: Esophageal, gastric and splenic varices are present. Bones: Bilateral hip arthroplasties are present. Multilevel degenerative changes of the thoracolumbar spine. Diffuse sclerotic osseous metastases are present. Soft tissues: Large bilateral inguinal hernias. Soft tissue densities in the left peritoneum measure 2 x 1.8 cm and 2.5 x 1.7 cm (series 2, images 52 and 59, respectively). 1. Bulky retroperitoneal and inguinal lymphadenopathy. 2. Intraperitoneal soft tissue deposits in the left lower quadrant concerning for metastatic implants. 3. Diffuse sclerotic osseous metastases of unknown primary. 4. Cirrhotic morphology of the liver with moderate ascites with sequela of portal hypertension including gastric, splenic and esophageal varices and splenomegaly. 5. Small right pleural effusion with associated compressive atelectasis. Left lower lobe consolidative opacity. Refer to concurrently obtained CT chest for findings above the diaphragm This report was dictated by a Reporting Lead/Fellow/Physician Lime Puller: Kelly Arizmendi RES 08/02/2024 19:39 CT BRAIN WO IV CONTRASTResult Date: 08/02/2024 EXAM: CT BRAIN WITHOUT CONTRAST DATE: 08/02/2024 18:35 INDICATION: fpund with leevated temp and AMS. COMPARISON: None. TECHNIQUE: Axial CT images of the brain were obtained. Sagittal and coronal reformats. IV contrast: None DLP: Refer to CT protocol form FINDINGS: There is no edema, hemorrhage, mass lesion or other acute intracranial abnormality. Mild chronic brain parenchymal volume loss with potential frontal lobe predominance. No calvarial fracture. 1.2 cm left frontal sclerotic calvarial lesion (series 6 image 24). The paranasal sinuses are predominantly clear. 1. No acute intracranial hemorrhage or signs of edema. 2. A 1.2 cm left frontal calvarial sclerotic lesion likely represents a metastasis given findings on concurrent CTA head and neck. 3. Chronic brain parenchymal volume loss. This report was dictated by a Reporting Lead/Fellow/Physician Lime Puller: Kelly Arizmendi RES 08/02/2024 19:04 I have personally reviewed the images as well as the interpretation and agree with the findings. Dictation Date/time: 08/02/2024 18:57 Electronically Signed by: Ketty Mcnamara MD 08/02/2024 19:38 CT ANGIOGRAM BRAIN NECKResult Date: 08/02/2024 EXAM: CTA BRAIN EXAM: CTA NECK DATE: 08/02/2024 18:35 INDICATION: fpund with leevated temp and AMS. COMPARISON: Concurrent chest CT, head CT TECHNIQUE: Rapid acquisition spiral CT images of the brain and neck were obtained between the aortic arch and the cranial vertex during intravenous infusion of iodinated contrast for the purposes of CT angiography. 3D angiographic postprocessing with MIP (maximum intensity projection) reformatted images made at the scanner. The source images were also presented for interpretation. Viz. was used in the care of this patient. IV contrast: Refer to MAR/medicine technologist documentation DLP: Refer to CT protocol form FINDINGS: NECK CTA: Aortic arch: The great vessels originate from the aortic arch in the standard configuration. No origin stenosis is identified. Common carotid arteries: Normal. Internal carotid arteries: * Right: Normal. Mild calcified atherosclerosis. * Left: Normal. Mild calcified atherosclerosis. Vertebral arteries: Normal. Nonvascular: Moderate right pleural effusion. Multiple scattered sclerotic osseous lesions, largest in the right scapula (series 4 image 161) where there is a 3.5 cm lesion. Partial visualization of the orogastric tube and endotracheal tube. Increased size and number of left supraclavicular lymph nodes (for example series 4 image 155). BRAIN CTA: Arteries: The anterior and posterior circulations have a normal appearance and a standard branching pattern. No CT evident branch occlusion, vascular injury, arteritis, vascular malformation or aneurysm is identified. Veins: Cannot be evaluated due to the early arterial phase of contrast. Brain parenchyma: Chronic brain parenchymal volume loss predominantly in the frontoparietal convexities. See same-day noncontrast CT brain. * Unremarkable arterial evaluation on CTA of the neck and brain. * Multifocal sclerotic osseous lesions likely represent metastases. * Clustered mildly enlarged left supraclavicular lymph nodes. * Moderate right pleural effusion (All qualitative and quantitative assessments of carotid bifurcation and proximal internal carotid artery stenosis are made referencing the distal internal carotid artery, NASCET criteria.) This report was dictated by a Reporting Lead/Fellow/Physician Lime Puller: Carmita Santana RES, MD 08/02/2024 19:23 I have personally reviewed the images as well as the interpretation and agree with the findings. Dictation Date/time: 08/02/2024 19:13 Electronically Signed by: Ketty Mcnamara MD 08/02/2024 19:35 CT angiogram chest pulmonary embolismResult Date: 08/02/2024 EXAM: CTA CHEST WITH CONTRAST DATE: 08/02/2024 18:33 INDICATION: Elevated temp and AMS ADDITIONAL INFORMATION: None. COMPARISON: Concurrent CT abdomen pelvis TECHNIQUE: Volumetric CT of the chest is acquired during pulmonary arterial phase following intravenous administration of contrast. Axial, sagittal, coronal, and oblique MIP reconstructions are created at the acquisition workstation. FINDINGS: THIS IS A PRELIMINARY REPORT BY THE ON-CALL RESIDENT. CHANGES TO THIS PRELIMINARY REPORT MAY OCCUR IN AN ADDITIONAL PRELIMINARY OR FINALIZED VERSION. 1. No central pulmonary embolus. Limited evaluation of subsegmental emboli. No right heart strain. 2. Consolidation in the left lower lobe likely represents atelectasis. Cannot exclude aspiration and/or superimposed infection. 3. Multifocal sclerotic lesions including in the scapulae, right clavicle bilateral ribs, multilevel spine, and sternum. 4. No significant lymphadenopathy. 5. Moderate right pleural effusion. 6. Endotracheal tube with tip above the level of the rosalia. Enteric tube tube coursing to the stomach and out of the [id number]. 7. See CT abdomen pelvis for findings below the diaphragm. This report was dictated by a Reporting Lead/Fellow/Physician Lime Puller: Colt Bonilla RES 08/02/2024 19:27 XR chest 1 viewResult Date: 08/02/2024 EXAM: XR CHEST 1 VIEW DATE: 08/02/2024 16:41 INDICATION: Pain post-trauma COMPARISON: None. TECHNIQUE: 2 successive AP views of the chest. FINDINGS: Lines, tubes and hardware: Endotracheal tube terminates 5.3 cm above the rosalia on the final image. Gastric tube courses below the level of the diaphragm with side port and tip outside the [id number]. Lungs and pleura: Prominent central venous vasculature. Bilateral, right greater than left hazy diffuse airspace opacities may represent contusion or edema. Mild blunting of the bilateral costophrenic angles consistent with trace pleural effusions. No pneumothorax is identified in the position of the study. Heart and mediastinum: The heart size is enlarged. The mediastinal contours are normal. Bones and soft tissues: No acute abnormality. Age-related degenerative findings. 1. Prominent central venous vasculature. Cardiomegaly. 2. Bilateral hazy opacities may represent edema or contusion in the setting of trauma. 3. Lines and tubes as above. Recommend advancement of the endotracheal tube about 1 cm for optimal positioning. This report was dictated by a Reporting Lead/Fellow/Physician Lime Puller: Carmita Santana RES, MD 08/02/2024 16:47 I have personally reviewed the images as well as the interpretation and agree with the findings. Dictation Date/time: 08/02/2024 16:44 Electronically Signed by: Lucille Wick MD 08/02/2024 17:25 Medications: azithromycin, 500 mg, Per G Tube, Daily cefepime, 1 g, Intravenous, q6h chlorhexidine, 15 mL, Mouth/Throat, 4x daily folic acid, 1 mg, Oral, Daily GenTeal Tears Night-Time, 1 Application, Both Eyes, q6h AIDA heparin, 7,500 Units, Subcutaneous, q8h AIDA HYDROcodone-acetaminophen, 1 tablet, Oral, Once hydrocortisone sodium succinate, 100 mg, Intravenous, Once lansoprazole, 30 mg, Per G Tube, Daily multivitamin, 1 tablet, Oral, Daily oxybutynin, 5 mg, Oral, BID polyethylene glycol (PEG) 3350, 17 g, Oral, Daily sennosides, 1 tablet, Oral, Nightly sodium chloride, 10 mL, Intravenous, q12h thiamine, 100 mg, Oral, Daily vancomycin, 1.25 g, Intravenous, q12h PRN medications: calcium gluconate, chlorhexidine, dextrose, dextrose,glucagon, hyoscyamine, magnesium sulfate, nystatin, potassium & sodium phosphates OR potassium & sodium phosphates, potassium chloride OR potassium chloride OR potassium chloride OR Potassium chloride, sodium chloride, sodium chloride, sodium phosphates 45 mmol in sodium chloride 0.9 % 250 mL IVPB, Pharmacy to dose vancomycin AND Vancomycin Pharmacy Dosing fentaNYL, 50-200 mcg/hr, Last Rate: 100 mcg/hr (08/03/24 0926)norepinephrine, 5- 70 mcg/min, Last Rate: Stopped (08/03/24 1255) Vent:FiO2 (%): [40 %] 40 % S RR: [24] 24 PEEP/CPAP (cm H2O): [5 cm H2O-8 cm H2O] 5 cm H2O HI SUP: [12 cm H20] 12 cm H20 MAP (cm H2O): [8.8-12] 8.8 Problem List:Patient Active Problem List Diagnosis AMS (altered mental status) Metabolic encephalopathy Aspiration pneumonia (CMS/HCC) (HCC) Acute hypoxemic respiratory failure (HCC) Liver cancer (HCC) Shock (CMS/HCC) (HCC) Pleural effusion, right Other cirrhosis of liver (HCC) Amphetamine dependency (CMS/HCC) (HCC) Metastatic cancer (HCC) Right ventricular dilation Urinary retention Severe sepsis with septic shock (CODE) (HCC) Diabetes mellitus (HCC) Summary: Reyna Ascencio (abad harrington) is a suspected to be 69 male. Patient was admitted on 08/02/2024 presented intubated due to AMS and being found down. 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 AMS improved. Suprapubic catheter placed by . Interval Changes:- overnight no events reported - Aox3; ambulating with assist - Good appetite - 2-4 lmp - Suprapubic catheter in pl;michelle Assessment/Plan:Neuro/Psych: Delirium Prevention: We will implement routine delirium screening in all ICU patients using tools like CAM-ICU to ensure early detection. We will focus on early mobilization with the involvement of physical and occupational therapy (PT/OT) to improve patient outcomes. We will continue to correct circadian rhythm by promoting sleep hygiene, minimizing nighttime disturbances, and using natural light exposure during the day. We will avoid sedating medications unless absolutely necessary, target euvolemia, and involve family members to help reduce confusion and delirium risk. Avoid restraints Unless absolutely necessary. - UDS was positive; discuss with patient and may get dialysis social worker consult. Resp:Extubated 08/03/2024 FiO2 (%): [40 %] 40 % S RR: [24] 24 PEEP/CPAP (cm H2O): [5 cm H2O-8 cm H2O] 5 cm H2O HI SUP: [12 cm H20] 12 cm H20 MAP (cm H2O): [8.8-12] 8.8 Weaning FiO2 [id number] PT/OT Aspiration precautions Cardiac: MAP > 65, on levofed. Echo reassuring GI: Tube feeds, bowel regimen : oxybutynin 10 mg XL daily and Levsin 0.125 mg sublingual every 6 hours PRN for bladder spasms. Renal: Monitor function and I/Os, replace electrolytes Endo: Check sugars, keep < 180 Heme/Onc Onc folloupFollow platelets could be due to malignancy of sepsis. ID: Monitor fever curve and WBC count; cultures being followed; broad ABX with Ceftriaxone 5d and azithro 3d. MSK/Rheum/Derm: PT/OT when applicable Misc:- Skin Breaks: TBD ICU Quality:HOB > 30 degrees Date of intubation: 08/02/2024 ; No data recorded Restraints: Yes, reordered Stress Ulcer: Lansoprazole d/c DVT ppx: Yes Lines: Indicated due to hemodynamic monitoring in critically ill patient Ornelas: Indicated for end organ perfusion in critically ill patient Dispo: Transfer to telemetry Code Status: No Order Medical Decision Maker: Unknown. Capacity: Full capacity This patient is critically ill due to presenting with an illness that impairsone or more vital organ systems. There was a high probability of imminent or life threatening deterioration in the patient's condition. I spent 38 cumulative minutes of non-concurrent critical care time directly related to this individual patient's care involving the evaluation, coordination, and management of the patient. This includes only time spent at the immediate bedside or elsewhere on the patient's floor or unit coordinating this patient's care and is not inclusive of any time spent performing invasive procedures. Marianne Reyna Professor Pulmonary and Critical Care Faculty [facility] * Luc Flores MD - 08/04/2024 7:19 AM CDT MICU Progress Note Name: Reyna Ascencio : Admission Date: 08/02/2024 Admission Diagnosis/Diagnoses: AMS (altered mental status) [R41.82] Hospital Day: 2 Assessment The patient Abad Harrington is a 69 year old male who was found sitting on a bench outside with bystanders report seeing him sitting there all day. Per report, he was altered and combative on scene but moving all extremities. Given 50mg ketamine IN, 100 serg IM, 10 vec IN, and 30 etomidate by life flight for intubation. The patient has a history of primary liver cancer with metastases to the bone. He is not on any anticoagulation. PMHX limited due to patient's current condition and daughter/son being unsure of any hx besides cancer. Urology consulted for difficult Ornelas placement. 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 The meatus was visualized and noted to be pinpoint. Upon arrival to the ICU, patient is intubated on ventilator AC/VC+ peep 10,FiO2 70%, , sedated on fentanyl 100/hr and versed 3mg/hr. Blood pressure 91/49 (63), arterial line in place, heart rate 86, RR 24, O2 saturation 97%. On physical exam, the patient has a suprapubic catheter in place, obesity with ascites, crusted skin bilateral forearms, and a phimotic penis. The patient's real name is Abad Harrington and 1955. He is nowextubated and A&Ox4 stable for transfer to floor. Patient will need follow up for suprapubic catheter exchange, oncology for prognostication and options for management, and encouragement of PO fluid intake. Family contact number is unknown, will need to have social work to continue searching for son and daughter's contact information. Principal Problem:AMS (altered mental status) Active Problems: Metabolic encephalopathy Aspiration pneumonia (CMS/HCC) (HCC) Acute hypoxemic respiratory failure (HCC) Liver cancer (HCC) Shock (CMS/HCC) (HCC) Pleural effusion, right Other cirrhosis of liver (HCC) Amphetamine dependency (CMS/HCC) (HCC) Metastatic cancer (HCC) Right ventricular dilation Urinary retention Severe sepsis with septic shock (CODE) (HCC) Diabetes mellitus (HCC) Neuro: #Acute toxic metabolic encephalopathy Sedation: wean versed and fentanyl, avoid precedex d/t hypotension -RASS Goal: 0 to -1 -Restraints: bilateral wrist while intubated -pending UDS/toxicology workup, ethanol -UDS positive for amphetamines and benzos Ammonia WNL -CT Brain: No acute intracranial hemorrhage or signs of edema. A 1.2 cm left frontal calvarial sclerotic lesion likely represents a metastasis given findings on concurrent CTA head and neck. Plan: - Continue to monitor pts mentation as sedation is discontinued - Thiamine daily CV#Hypotension, Distributive versus Hypovolemic Shock #Dysrhythmia Keep Mag >2 and K>4 Give 2 g mag now for replacement POCUS showing RV dilation, no effusion Received 1 L of IVF, use pressors if needed and hold off on fluids Troponin 82 BNP 133 TTE 08/03 shows EF 60-65% Plan: None Respiratory#Acute hypoxemic respiratory failure requiring invasive mechanical ventilation #Right sided pleural effusion #L sided consolidation, atelectasis versus pneumonia Extubated 08/[address] Chest showing R sided pleural effusion with left sided consolidation versus atelectasis Active smoker, does not want patch Plan: -On HFNC -Head of bed @ 30?-45? -Provide cessation counseling -On azithromycin and ceftriaxone for CAP coverage GI#Metastatic liver cancer with metastases to bones #Inability to place ornelas catheter placement s/p suprapubic catheter placement by urology -OG Tube in place -suprapubic catheter in place. Urology consulted CT abdomen/pelvis showing mild-moderate ascites, nodular liver, possible cirrhosis No pocket for paracentesis Plan:-PUD prophylaxis dc'd following extubation -Nutrition: start tube foods via OG - Consulted Oncology, consult rejected as oncology requested that patient's potential compliance is assessed and insurance is verified for follow up. Please re-consult as patient would like to know treatment options and what is possible for him in terms of prognosis, while inpatient this information would assist in his decision making and oncology expertise would be appreciated. He is not interested in operative options. - F/u with urology as outpatient for suprapubic catheter exchange ID #Pneumonia - WBC 6.29 -> 5.64 - UA negative nitrites - 08/03 MRSA Nares positive - Viral panel negative - 08/03 Procal elevated at 1.35 - Legionella negative Plan: - Start Azithromycin and Ceftriaxone for CAP coverage - DC Vanc/Cefe Renal/electrolytes -Electrolyte replacement: K and Mg -Cr 0.89 - Oxybutynin 5mg BID Heme/Onc#Metastatic liver cancer with bone mets -hemoglobin stable -Please re-consult oncology Endocrine-Glucose control: low dose SSI prn -Glucose range: 140-180 Gymagbu-ouiclqru-SS/OT consult: when applicable Consults:urology ICU CHECKLIST -Code Status: Full code -Feeds/fluids: start oral feeds -Suprapubic catheter Date placed: 08/02 -Thromboprophylaxis: heparin subq -Head of bed: elevated -Glycemic control: SSI prn -SBT: in am -Bowel regimen: miralax prn -Indwelling lines: arterial line, PIV -De-escalate drugs: Fentanyl, versed Family contacts: patient's son Nisha Harrington, SW attempting to reach family Luc Flores DO Resident Physician, PGY-1 [facility] | Physical Medicine & Rehabilitation Subjective/24h Events: Nursing reporting patient is passing blood clots through suprapubic catheterthis AM. Patient evaluated at bedside. Feeling better today, wants to know what options there are for management of his cancer. He reports to not drinking any alcohol in the last 14 months, still actively smokes cigarettes. Objective: Physical Exam: Vitals Current 24 Hour Min/Max T: 36.4 ?C (97.6 ?F) Temp Min: 35.9 ?C (96.6 ?F) Max: 36.6 ?C (97.9 ?F) HR: 92 Pulse Min: 82 Max: 105 BP: 113/53 BP Min: 82/67 Max: 117/59 RR: 16 Resp Min: 14 Max: 44 O2S: 94 % SpO2 Min: 86 % Max: 97 % 24HR INTAKE/OUTPUT:Intake/Output Summary (Last 24 hours) at 08/04/2024 0721 Last data filed at 08/04/2024 0600 Gross per 24 hour Intake 449.67 ml Output 1850 ml Net -1400.33 ml Vent Settings: On NC Weight Wt Readings from Last 1 Encounters: 08/03/24 117 kg (257 lb 15 oz) General Appearance: Awake, alert, no apparent distress HEENT: NC/AT, conjunctivae/corneas/sclerae clear, no nasal drainage or sinus tenderness, oropharynx clear, neck supple Lungs: inspiratory crackles on auscultation Heart: RRR Abdomen: soft, non-tender & nondistended. Hematologic/Lymphatics: no cervical, supraclavicular, axillary lymphadenopathy Musculoskeletal: No joint tenderness or swelling. Neurologic: Mental status intact, Sensation grossly intact. Labs:Recent Results (from the past 16 hours) POC Glucose Collection Time: 08/03/24 4:02 PM Result Value Ref Range POC Glu 78 70 - 99 mg/dL POC Performing Location C2 MICU POC Glucose Collection Time: 08/03/24 8:06 PM Result Value Ref Range POC Glu 81 70 - 99 mg/dL POC Glu Comment 1 Notified RN/MD POC Performing Location C2 MICU POC Glucose Collection Time: 08/03/24 11:38 PM Result Value Ref Range POC Glu 98 70 - 99 mg/dL POC Glu Comment 1 Notified RN/MD POC Performing Location C2 MICU Basic Metabolic Panel Collection Time: 08/04/24 1:46 AM Result Value Ref Range Glucose Lvl 77 70 - 99 mg/dL BUN 13 9 - 23 mg/dL Creatinine Lvl 0.74 0.7 - 1.30 mg/dL Sodium Lvl 140 136 - 145 mEq/L Potassium Lvl 4.0 3.4 - 4.5 mEq/L Chloride Lvl 112 (H) 98 - 107 mEq/L CO2 Lvl 24.6 20.0 - 31.0 mEq/L Anion Gap 7.4 (L) 10.0 - 20.0 mEq/L Calcium Lvl 8.1 (L) 8.3 - 10.6 mg/dL eGFR 70 >60 mL/min/1.73m2 Magnesium Level Collection Time: 08/04/24 1:46 AM Result Value Ref Range Magnesium 1.86 1.6 - 2.60 mg/dL Phosphorus Level Collection Time: 08/04/24 1:46 AM Result Value Ref Range Phosphorus Lvl 3.2 2.4 - 5.1 mg/dL Calcium Level Ionized Whole Blood Collection Time: 08/04/24 1:46 AM Result Value Ref Range BKR IONIZED CA, WB 1.07 1.05 - 1.25 mmol/L BKR IONIZED CA, WB (PH=7.4) 1.07 1.05 - 1.25 mmol/L Hepatic Function Panel Collection Time: 08/04/24 1:46 AM Result Value Ref Range Protein 6.0 5.7 - 8.2 g/dL Albumin Lvl 2.1 (L) 3.4 - 5.0 g/dL Bilirubin Total 1.00 (H) 0.2 - 0.90 mg/dL Bilirubin Direct 0.5 (H) <=0.3 mg/dL Bilirubin Indirect 0.5 0.0 - 1.0 mg/dL Alkaline Phosphatase 114 46 - 116 U/L AST 45 (H) 12 - 40 U/L ALT 19 7 - 40 U/L Globulin, Calc 3.9 2.0 - 4.0 g/dL Albumin/Globulin Ratio 0.54 (L) 0.7 - 1.6 Vancomycin Level AUC Collection Time: 08/04/24 1:46 AM Result Value Ref Range Vancomycin Lvl AUC 18.8 ug/ml Complete Blood Count Collection Time: 08/04/24 1:46 AM Result Value Ref Range WBC 5.64 3.92-.10.07 10*3/uL RBC 4.04 (L) 4.27 - 6.02 10*6/uL NRBC % 0.0 0 /100 WBC Hgb 11.9 (L) 12.4 - 17.4 g/dL Hct 37.8 37.1 - 50.8 % MCV 93.6 79.2 - 96.8 fL MCH 29.5 26.1 - 32.4 pg MCHC 31.5 31.2 - 36.1 g/dL RDW - SD 56.8 (H) 34.0 - 37.0 fL Plt Count 131 (L) 160 - 381 10*3/uL MPV 9.7 9.0 - 12.0 fL Automated Differential Collection Time: 08/04/24 1:46 AM Result Value Ref Range Segs % 57.6 40.6 - 75.7 % Lymphs % 22.7 14.9 - 47.8 % Monos % 8.7 4.2 - 12.6 % Eos % 9.9 (H) 0.2 - 5.0 % Basos % 0.7 0.2 - 1.3 % Immature Grans % 0.4 0.1 - 1.0 % Segs # 3.25 1.48 - 6.56 10*3/uL Lymphs # 1.28 0.86 - 3.84 10*3/uL Monos # 0.49 0.29 - 0.96 10*3/uL Eos # 0.56 (H) 0.00 - 0.46 10*3/uL Basos # 0.04 0.01 - 0.08 10*3/uL Imm Grans # 0.02 0.01 - 0.07 10*3/uL POC Glucose Collection Time: 08/04/24 3:47 AM Result Value Ref Range POC Glu 117 (H) 70 - 99 mg/dL POC Performing Location C2 MICU Radiology Review: TTE 08/03 The study was technically difficult and has limited image quality. Left ventricle is normal in size and systolic function with an estimated ejection fraction of 60-65%, by Doan’s biplane method of discs. There is impaired relaxation and normal filling pressures. There is no thrombus visualized in the LV with Definity contrast. Right ventricle is mildly enlarged and systolic function is normal (tricuspid annular planar systolic excursion is 2.3 cm). Left atrium is grossly normal in size (left atrial volume index is not calculated due to poor image quality). Right atrium is normal in size. Aortic valve is trileaflet and sclerotic normal function. There is moderate leaflet thickening with no significant stenosis or regurgitation. Mitral valve has moderate to severe annular calcification with no significant stenosis or regurgitation. Tricuspid valve leaflets are normal. There is trace tricuspid regurgitation. Right ventricular systolic pressure could not be estimated due to a lack of a TR jet. Pulmonic valve is not well visualized. Aortic root is normal in diameter. Inferior vena cava is normal in diameter with <50% respiratory variation in size. No pericardial effusion is seen. There are no prior echocardiograms currently available for comparison. Medications:Scheduled: azithromycin, 500 mg, Per G Tube, Daily cefepime, 1 g, Intravenous, q6h chlorhexidine, 15 mL, Mouth/Throat, 4x daily folic acid, 1 mg, Oral, Daily GenTeal Tears Night-Time, 1 Application, Both Eyes, q6h AIDA heparin, 7,500 Units, Subcutaneous, q8h AIDA HYDROcodone-acetaminophen, 1 tablet, Oral, Once hydrocortisone sodium succinate, 100 mg, Intravenous, Once lansoprazole, 30 mg, Per G Tube, Daily multivitamin, 1 tablet, Oral, Daily oxybutynin, 5 mg, Oral, BID polyethylene glycol (PEG) 3350, 17 g, Oral, Daily sennosides, 1 tablet, Oral, Nightly sodium chloride, 10 mL, Intravenous, q12h thiamine, 100 mg, Oral, Daily vancomycin, 1.25 g, Intravenous, q12h Prn: PRN medications: calcium gluconate, chlorhexidine, dextrose, dextrose, glucagon, hyoscyamine, magnesium sulfate, nystatin, potassium & sodium phosphates OR potassium & sodium phosphates, potassium chloride OR potassium chloride OR potassium chloride OR Potassium chloride, sodium chloride, sodium chloride, sodium phosphates 45 mmol in sodium chloride 0.9 % 250 mL IVPB, Pharmacy to dose vancomycin AND Vancomycin Pharmacy Dosing Drips:fentaNYL, 50-200 mcg/hr, Last Rate: 100 mcg/hr (08/03/24 2061) norepinephrine, 5-70 mcg/min, Last Rate: Stopped (08/03/24 5165) Cosigned by Ebenezer Clarke MD at 08/04/2024 10:47 PM CDT * Jocelyne Leal PharmD - 08/04/2024 6:04 AM CDT Clinician Notes: Treatment Indication: Pneumonia Vancomycin Start Date: 08/02 at 1900 Next Level Due: 08/07 w/AM labs (not ordered) [facility] Contact Number: [id number] [facility] at [phone] with questions. Recommended Dose: 1250 mg IV over 1.5 hours every 12 hours for 2 days Next Dose At: 08:00 on Aug 04 2024 Dosing Interval: 12 hours Infusion Length: 1.5 hours Dose Valid For: 4 doses only Dose Recommendation Method: Individualized model Target Outcome: AUC24: 450 mcg.h/mL Predicted Outcome: AUC24: 447.24 mcg.h/mL Predicted Peak: 24.3 mcg/mL Predicted Trough: 13.8 mcg/mL Predicted AUC24: 447.2 mcg.h/mL Predicted AUC12: 223.6 mcg.h/mL Most Recent Dose: 1250 mg over 1.5 hours at 20:00 on Aug 03 2024 Most Recent SCr: 0.74 mg/dL at 01:46 on Aug 04 2024 Most Recent Blood Concentration: 18.8 mcg/mL at 01:46 on Aug 04 2024 Peak: 23.1 mcg/mL Trough: 12.8 mcg/mL AUC24: 418 mcg.h/mL AUC12: 209 mcg.h/mL * Taco Enriquez LCSW - 08/03/2024 4:16 PM CDT Social Work Note SW completed chart search to verify pt's NOK. Pt's name is ABAD HARRINGTON : 1955. Pt has two children, Nisha Harrington and Celia Joyce. No phone numbers on file. SW contacted pt's past emergency contact numbers, SW left a discreet voicemail on [phone] and [phone] asking for a call back. SW also attempted to contact Timur Belle [phone], per ER nurse note. LURDES completed chart search in [employer], SW attempted to contact Celia Joyce([phone]), phone not in service. LURDES completed search on [employer], no family information available. Unable to locate NOK at this time, SW will continue to follow. * Ebenezer Clarke MD - 08/03/2024 7:49 AM CDT [place] Attending Critical Care Progress Note / Addendum I have reviewed the note written by the resident on the same day and agree with the exam, assessment, and plan as documented. I have independently examined and discussed the patient with the team. I have also personally reviewed the laboratory and diagnostic data. Below are my modifications or additions. Name: Reyna Ascencio ) : Age: 89 y.o. Listed Gender: male) Date admitted: 08/02/2024 LOS: 1 Chief Complaint Patient presents with Altered Mental Status Heat Exposure Intake and Output: Intake/Output Summary (Last 24 hours) at 08/03/2024 0749Last data filed at 08/03/2024 0617 Gross per 24 hour Intake 1392.19 ml Output 950 ml Net 442.19 ml Labs: Recent Labs 08/02/24 1650 08/02/24 2303 08/02/24 2317 08/03/24 0313 NA 140 136 142 138 K 3.8 3.8 3.8 3.7 CO2 22.9 -- 22.9 -- BUN 23 -- 23 -- CREATININE 0.89 -- 0.95 -- Recent Labs 08/02/24 1650 08/02/24 2303 08/02/24 2317 08/03/24 0313 WBC 7.65 -- 6.29 -- HCT 38.0 40.0* 39.3 38.0* HGB 12.3* -- 12.9 -- Recent Labs08/02/24 1650 INR 1.30* PTT 34.6 No components found for: "ISTATPH", "[id number]", "ISTATPO2", "ISTATBICARB", "ISTATBASEEXC", "Q0WYAPHJ" @MICROBIOLOGYRESULTS@ Imaging:XR abdomen 1 view Result Date: 08/03/2024 EXAM: XR ABDOMEN 1 VIEW DATE: 08/03/2024 5:40 INDICATION: OG tube ADDITIONAL INFORMATION: None. COMPARISON: CT abdomen pelvis 08/02/2024 TECHNIQUE: Single frontal view of the abdomen. FINDINGS: Lines and tubes: Gastric suction tube with tip overlying the duodenojejunal junction. Overlying EKG leads. Lower thorax: Retrocardiac opacities with patchy airspace opacities. Bilateral pleural effusions. Bowel: Nonobstructive bowel gas pattern. Solid organs: No abnormal mass or organomegaly seen. Calcifications: No abnormal calcifications found. Bones: Unchanged. * Gastric suction tube as above. CT ABDOMEN PELVIS W IV CONTRASTResult Date: 08/02/2024 EXAM: CT ABDOMEN AND PELVIS WITH CONTRAST DATE: 08/02/2024 18:33 INDICATION: fpund with leevated temp and AMS ADDITIONAL INFORMATION: None. COMPARISON: None. TECHNIQUE: Volumetric CT of the abdomen and pelvis acquired following the intravenous administration of contrast. Axial, coronal and sagittal images are provided. FINDINGS: Chief Ii Dispatcher: Noncontributory. Lines, tubes and hardware: Enteric tube terminates at the gastric antrum. Lower thorax: Left lower lobe consolidation. Small right pleural effusion with associated compressive atelectasis. Lower thoracic findings are as reported on concurrently obtained chest CT of the same date. Liver: Hepatic morphology consistent with cirrhosis. Biliary tree: No intra- or extrahepatic bile duct dilation. Gallbladder: Normal. Pancreas: No pancreatic duct dilatation. Spleen: Enlarged without focal lesion. Adrenals: Normal. Kidneys and ureters: Normal. Bladder: Partially obscured by streak artifact. Otherwise within normal limits. Reproductive organs: Limited evaluation due to significant streak artifact from bilateral total hip arthroplasties. Gastrointestinal tract: Lower esophagus: Normal. Stomach: Normal. Small bowel: No abnormally dilated bowel loops. Colon: Moderate stool burden. Appendix: Normal. Peritoneum, mesentery and retroperitoneum: Moderate ascites. No free air or loculated fluid. Soft tissue nodules within the. Lymph nodes: Bulky retroperitoneal lymphadenopathy. Vasculature: Aorta and branches: Normal. IVC and veins: Normal. Portal and mesenteric vasculature: Esophageal, gastric and splenic varices are present. Bones: Bilateral hip arthroplasties are present. Multilevel degenerative changes of the thoracolumbar spine. Diffuse sclerotic osseous metastases are present. Soft tissues: Large bilateral inguinal hernias. Soft tissue densities in the left peritoneum measure 2 x 1.8 cm and 2.5 x 1.7 cm (series 2, images 52 and 59, respectively). 1. Bulky retroperitoneal and inguinal lymphadenopathy. 2. Intraperitoneal soft tissue deposits in the left lower quadrant concerning for metastatic implants. 3. Diffuse sclerotic osseous metastases of unknown primary. 4. Cirrhotic morphology of the liver with moderate ascites with sequela of portal hypertension including gastric, splenic and esophageal varices and splenomegaly. 5. Small right pleural effusion with associated compressive atelectasis. Left lower lobe consolidative opacity. Refer to concurrently obtained CT chest for findings above the diaphragm This report was dictated by a Reporting Lead/Fellow/Physician Lime Puller: Kelly Arizmendi, RES 08/02/2024 19:39 CT BRAIN WO IV CONTRASTResult Date: 08/02/2024 EXAM: CT BRAIN WITHOUT CONTRAST DATE: 08/02/2024 18:35 INDICATION: fpund with leevated temp and AMS. COMPARISON: None. TECHNIQUE: Axial CT images of the brain were obtained. Sagittal and coronal reformats. IV contrast: None DLP: Refer to CT protocol form FINDINGS: There is no edema, hemorrhage, mass lesion or other acute intracranial abnormality. Mild chronic brain parenchymal volume loss with potential frontal lobe predominance. No calvarial fracture. 1.2 cm left frontal sclerotic calvarial lesion (series 6 image 24). The paranasal sinuses are predominantly clear. 1. No acute intracranial hemorrhage or signs of edema. 2. A 1.2 cm left frontal calvarial sclerotic lesion likely represents a metastasis given findings on concurrent CTA head and neck. 3. Chronic brain parenchymal volume loss. This report was dictated by a Reporting Lead/Fellow/Physician Lime Puller: Kelly Arizmendi RES 08/02/2024 19:04 I have personally reviewed the images as well as the interpretation and agree with the findings. Dictation Date/time: 08/02/2024 18:57 Electronically Signed by: Ketty Mcnamara MD 08/02/2024 19:38 CT ANGIOGRAM BRAIN NECKResult Date: 08/02/2024 EXAM: CTA BRAIN EXAM: CTA NECK DATE: 08/02/2024 18:35 INDICATION: fpund with leevated temp and AMS. COMPARISON: Concurrent chest CT, head CT TECHNIQUE: Rapid acquisition spiral CT images of the brain and neck were obtained between the aortic arch and the cranial vertex during intravenous infusion of iodinated contrast for the purposes of CT angiography. 3D angiographic postprocessing with MIP (maximum intensity projection) reformatted images made at the scanner. The source images were also presented for interpretation. Viz. was used in the care of this patient. IV contrast: Refer to MAR/medicine technologist documentation DLP: Refer to CT protocol form FINDINGS: NECK CTA: Aortic arch: The great vessels originate from the aortic arch in the standard configuration. No origin stenosis is identified. Common carotid arteries: Normal. Internal carotid arteries: * Right: Normal. Mild calcified atherosclerosis. * Left: Normal. Mild calcified atherosclerosis. Vertebral arteries: Normal. Nonvascular: Moderate right pleural effusion. Multiple scattered sclerotic osseous lesions, largest in the right scapula (series 4 image 161) where there is a 3.5 cm lesion. Partial visualization of the orogastric tube and endotracheal tube. Increased size and number of left supraclavicular lymph nodes (for example series 4 image 155). BRAIN CTA: Arteries: The anterior and posterior circulations have a normal appearance and a standard branching pattern. No CT evident branch occlusion, vascular injury, arteritis, vascular malformation or aneurysm is identified. Veins: Cannot be evaluated due to the early arterial phase of contrast. Brain parenchyma: Chronic brain parenchymal volume loss predominantly in the frontoparietal convexities. See same-day noncontrast CT brain. * Unremarkable arterial evaluation on CTA of the neck and brain. * Multifocal sclerotic osseous lesions likely represent metastases. * Clustered mildly enlarged left supraclavicular lymph nodes. * Moderate right pleural effusion (All qualitative and quantitative assessments of carotid bifurcation and proximal internal carotid artery stenosis are made referencing the distal internal carotid artery, NASCET criteria.) This report was dictated by a Reporting Lead/Fellow/Physician Lime Puller: Carmita Santana RES, MD 08/02/2024 19:23 I have personally reviewed the images as well as the interpretation and agree with the findings. Dictation Date/time: 08/02/2024 19:13 Electronically Signed by: Ketty Mcnamara MD 08/02/2024 19:35 CT angiogram chest pulmonary embolismResult Date: 08/02/2024 EXAM: CTA CHEST WITH CONTRAST DATE: 08/02/2024 18:33 INDICATION: Elevated temp and AMS ADDITIONAL INFORMATION: None. COMPARISON: Concurrent CT abdomen pelvis TECHNIQUE: Volumetric CT of the chest is acquired during pulmonary arterial phase following intravenous administration of contrast. Axial, sagittal, coronal, and oblique MIP reconstructions are created at the acquisition workstation. FINDINGS: THIS IS A PRELIMINARY REPORT BY THE ON-CALL RESIDENT. CHANGES TO THIS PRELIMINARY REPORT MAY OCCUR IN AN ADDITIONAL PRELIMINARY OR FINALIZED VERSION. 1. No central pulmonary embolus. Limited evaluation of subsegmental emboli. No right heart strain. 2. Consolidation in the left lower lobe likely represents atelectasis. Cannot exclude aspiration and/or superimposed infection. 3. Multifocal sclerotic lesions including in the scapulae, right clavicle bilateral ribs, multilevel spine, and sternum. 4. No significant lymphadenopathy. 5. Moderate right pleural effusion. 6. Endotracheal tube with tip above the level of the rosalia. Enteric tube tube coursing to the stomach and out of the [id number]. 7. See CT abdomen pelvis for findings below the diaphragm. This report was dictated by a Reporting Lead/Fellow/Physician Lime Puller: Colt Bonilla RES 08/02/2024 19:27 XR chest 1 viewResult Date: 08/02/2024 EXAM: XR CHEST 1 VIEW DATE: 08/02/2024 16:41 INDICATION: Pain post-trauma COMPARISON: None. TECHNIQUE: 2 successive AP views of the chest. FINDINGS: Lines, tubes and hardware: Endotracheal tube terminates 5.3 cm above the rosalia on the final image. Gastric tube courses below the level of the diaphragm with side port and tip outside the [id number]. Lungs and pleura: Prominent central venous vasculature. Bilateral, right greater than left hazy diffuse airspace opacities may represent contusion or edema. Mild blunting of the bilateral costophrenic angles consistent with trace pleural effusions. No pneumothorax is identified in the position of the study. Heart and mediastinum: The heart size is enlarged. The mediastinal contours are normal. Bones and soft tissues: No acute abnormality. Age-related degenerative findings. 1. Prominent central venous vasculature. Cardiomegaly. 2. Bilateral hazy opacities may represent edema or contusion in the setting of trauma. 3. Lines and tubes as above. Recommend advancement of the endotracheal tube about 1 cm for optimal positioning. This report was dictated by a Reporting Lead/Fellow/Physician Lime Puller: Carmita Santana RES, MD 08/02/2024 16:47 I have personally reviewed the images as well as the interpretation and agree with the findings. Dictation Date/time: 08/02/2024 16:44 Electronically Signed by: Lucille Wick MD 08/02/2024 17:25 Medications: artificial tears, 1 Application, Both Eyes, q6h AIDA azithromycin, 500 mg, Intravenous, q24h cefepime, 1 g, Intravenous, q6h chlorhexidine, 15 mL, Mouth/Throat, 4x daily folic acid, 1 mg, Oral, Daily heparin, 7,500 Units, Subcutaneous, q8h AIDA hydrocortisone sodium succinate, 100 mg, Intravenous, Once lansoprazole, 30 mg, Per G Tube, Daily multivitamin, 1 tablet, Oral, Daily sodium chloride, 10 mL, Intravenous, q12h thiamine, 100 mg, Oral, Daily vancomycin, 1.25 g, Intravenous, q12h PRN medications: calcium gluconate, chlorhexidine, magnesium sulfate, nystatin, potassium & sodium phosphates OR potassium & sodium phosphates, potassium chloride OR potassium chloride OR potassium chloride OR Potassium chloride, sodium chloride, sodium chloride, sodium phosphates 45 mmol in sodium chloride 0.9 % 250 mL IVPB, Pharmacy to dose vancomycin AND Vancomycin Pharmacy Dosing fentaNYL, 50-200 mcg/hr, Last Rate: 100 mcg/hr (08/03/24 0143)midazolam, 1-10 mg/hr, Last Rate: Stopped (08/02/24 5777) norepinephrine, 5-70 mcg/min, Last Rate: 5 mcg/min (08/03/24 0030) Vent: FiO2 (%): [40 %-100 %] 40 % S RR: [24] 24 S VT: [450 mL-500 mL] 450 mL PEEP/CPAP (cm H2O): [8 cm H2O-10 cm H2O] 10 cm H2O MAP (cm H2O): [14-17] 17 Problem List:Patient Active Problem List Diagnosis AMS (altered mental status) Metabolic encephalopathy Aspiration pneumonia (CMS/HCC) (HCC) Acute hypoxemic respiratory failure (HCC) Liver cancer (HCC) Shock (CMS/HCC) (HCC) Pleural effusion, right Other cirrhosis of liver (HCC) Summary: Reyna Ascencio (abad harrington) is a suspected to be 69 male. Patient was admitted on 08/02/2024 presented intubated due to AMS and being found down. 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 AMS improved. Suprapubic catheter placed by . Interval Changes:- overnight was hypotensive. - Accidental levofed bolus reported by overnight team. - Currently on 7mcg of levofed. - Exam: follows all commands; non focal Good lung compliance Soft abdomen Suprapubic catheter in place Warm extremities Assessment/Plan:Neuro/Psych: RASS goal 0 Fentanyl May start Seroquel. Resp:Mechanical ventilation with lung protective strategy FiO2 (%): [40 %-100 %] 40 %S RR: [24] 24 S VT: [450 mL-500 mL] 450 mL PEEP/CPAP (cm H2O): [8 cm H2O-10 cm H2O] 10 cm H2O MAP (cm H2O): [14-17] 17 Daily SBT/SAT and possible extubation Cardiac: MAP > 65, on levofed. Echo pendingGI: Tube feeds, bowel regimen : oxybutynin 10 mg XL daily and Levsin 0.125 mg sublingual every 6 hours PRN for bladder spasms. Renal: Monitor function and I/Os, replace electrolytes Endo: Check sugars, keep < 180 Heme/Onc: Monitor Hgb and platelets closely, currently no bleeding ID: Monitor fever curve and WBC count; cultures being followed; broad ABX with MRSA nare Viral panel Procalcitonin MSK/Rheum/Derm: PT/OT when applicable Misc:- Skin Breaks: TBD ICU Quality:HOB > 30 degrees Date of intubation: 08/02/2024 ; No data recorded Restraints: Yes, reordered Stress Ulcer: Lansoprazole DVT ppx: Yes Lines: Indicated due to hemodynamic monitoring in critically ill patient Ornelas: Indicated for end organ perfusion in critically ill patient Lines, tubes, drains:Reviewed medications, laboratory data, diagnostic imaging, and microbiology as of 08/03/2024 7:49 AM. Peripheral IV 08/02/24 Anterior;Left;Upper Arm (Active)Placement Date/Time: 08/02/24 1630 Size (Gauge): 18 G Orientation: Anterior;Left;Upper Location: Arm Number of days: 1 Peripheral IV 08/02/24 Anterior;Right;Upper Arm (Active)Placement Date/Time: 08/02/24 1825 Size (Gauge): 18 G Orientation: Anterior;Right;Upper Location: Arm Number of days: 1 Gastric Tube 08/02/24 Orogastric Center mouth (Active)Placement Date/Time: 08/02/24 1630 NG/OG/Feeding Tube Type: Orogastric Tube Location: Center mouth Tube Secured at (cm): 75 cm Number of days: 1 Suprapubic Catheter (Active)Earliest Known Present: 08/02/24 Urine Returned: Yes Securement Method: Sutured Number of days: 1 ETT 8 mm (Active)Placement Date: 08/02/24 Placed by External Staff?: (c) Other (Comment) ETT Type: ETT - single Single Lumen Tube Size: 8 mm Cuffed: Yes Location: Oral Number of days: 1 Arterial Line 08/02/24 Left Radial (Active)Placement Date/Time: 08/02/24 1730 Hand Hygiene Completed: Yes Orientation: Left Location: Radial Insertion attempts: 1 Number of days: 1 Dispo: Remain in ICU Code Status: No Order Medical Decision Maker: Unknown. Capacity: Full capacity This patient is critically ill due to presenting with an illness that impairsone or more vital organ systems. There was a high probability of imminent or life threatening deterioration in the patient's condition. I spent 38 cumulative minutes of non-concurrent critical care time directly related to this individual patient's care involving the evaluation, coordination, and management of the patient. This includes only time spent at the immediate bedside or elsewhere on the patient's floor or unit coordinating this patient's care and is not inclusive of any time spent performing invasive procedures. Marianne Reyna Professor Pulmonary and Critical Care Faculty [facility] * Luc Flores MD - 08/03/2024 7:01 AM CDT MICU Progress Note Name: Reyna Ascencio : Admission Date: 08/02/2024 Admission Diagnosis/Diagnoses: AMS (altered mental status) [R41.82] Hospital Day: 1 Assessment The patient is a 69 year old male who was found sitting on a bench outside with bystanders report seeing him sitting there all day. Per report, he was altered and combative on scene but moving all extremities. Given 50mg ketamine IN, 100 serg IM, 10 vec IN, and 30 etomidate by life flight for intubation. The patient has a history of primary liver cancer with metastases to the bone. He is not on any anticoagulation. PMHX limited due to patient's current condition and daughter/son being unsure of any hx besides cancer. Urology consulted for difficult Ornelas placement. 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 The meatus was visualized and noted to be pinpoint. Upon arrival to the ICU, patient is intubated on ventilator AC/VC+ peep 10,FiO2 70%, , sedated on fentanyl 100/hr and versed 3mg/hr. Blood pressure 91/49 (63), arterial line in place, heart rate 86, RR 24, O2 saturation 97%. On physical exam, the patient has a suprapubic catheter in place, obesity with ascites, crusted skin bilateral forearms, and a phimotic penis. The patient's real name is Abad Harrington and 1955. Principal Problem:AMS (altered mental status) Neuro: #Acute toxic metabolic encephalopathy Sedation: wean versed and fentanyl, avoid precedex d/t hypotension -RASS Goal: 0 to -1 -Restraints: bilateral wrist while intubated -pending UDS/toxicology workup, ethanol -UDS positive for amphetamines and benzos Ammonia WNL -CT Brain: No acute intracranial hemorrhage or signs of edema. A 1.2 cm left frontal calvarial sclerotic lesion likely represents a metastasis given findings on concurrent CTA head and neck. Plan: Continue to monitor pts mentation as sedation is discontinued - Thiamine daily CV#Hypotension, Distributive versus Hypovolemic Shock #Dysrhythmia Keep Mag >2 and K>4 Give 2 g mag now for replacement POCUS showing RV dilation, no effusion Received 1 L of IVF, use pressors if needed and hold off on fluids Troponin 82 BNP 133 Plan:Formal echo completed, pending read Vasopressors: Levophed Place central line if patient remains on pressors >24hrs Respiratory#Acute hypoxemic respiratory failure requiring invasive mechanical ventilation #Right sided pleural effusion #L sided consolidation, atelectasis versus pneumonia Ventilator (mode+settings): AC/VC+, peep 5, FiO2 70% CT Chest showing R sided pleural effusion with left sided consolidation versus atelectasis Plan:-Ventilator plan: Wean as tolerated -Diagnostic thoracentesis once extubated -Spontaneous breathing trial today -Head of bed @ 30?-45? GI#Metastatic liver cancer with metastases to bones #Inability to place ornelas catheter placement s/p suprapubic catheter placement by urology -OG Tube in place -suprapubic catheter in place. Urology consulted CT abdomen/pelvis showing mild-moderate ascites, nodular liver, possible cirrhosis No pocket for paracentesis Plan:-PUD prophylaxis: Protonix -Nutrition: start tube foods via OG ID#Pneumonia - WBC 6.29 - UA negative nitrites - MRSA Nares positive Plan: -Microbiology results: pending blood cultures -Antibiotic(s): vancomycin, azithromycin, cefepime -Day of antibiotics: 2 -pending sputum cultures, urine legionella -Sending viral RSV panel -Sending procal Renal/electrolytes-Electrolyte replacement: K and Mg -Cr 0.89 - Oxybutynin 5mg BID Heme/Onc#Metastatic liver cancer with bone mets -hemoglobin stable - oncology consulted, appreciate recs Endocrine-Glucose control: low dose SSI prn -Glucose range: 140-180 [id number] consult: when applicable Consults:urology ICU CHECKLIST -Code Status: Full code -Feeds/fluids: start tube feeds -Suprapubic catheter Date placed: 08/02. -Sedation/restraints: transition to precedex -Thromboprophylaxis: heparin subq -Head of bed: elevated -Ulcer prophylaxis: protonix -Glycemic control: SSI prn -SBT: in am -Bowel regimen: miralax prn -Indwelling lines: arterial line, PIV -De-escalate drugs: Fentanyl, versed Family contacts: patient's son Nisha Harrington Luc Flores DO Resident Physician, PGY-1 [facility] | Physical Medicine & Rehabilitation Subjective/24h Events: Admitted to MICU overnight. Patient evaluated at the bedside. Wants to be extubated by pointing at endotracheal tube, after extubation was communicating appropriately. Objective: Physical Exam: Vitals Current 24 Hour Min/Max T: (!) 35.8 ?C (96.4 ?F) Temp Min: 34.9 ?C (94.8 ?F) Max: 37.9 ?C (100.2 ?F) HR: 89 Pulse Min: 77 Max: 130 BP: 119/68 BP Min: 101/59 Max: 136/66 RR: 24 Resp Min: 17 Max: 27 O2S: 96 % SpO2 Min: 93 % Max: 99 % 24HR INTAKE/OUTPUT:Intake/Output Summary (Last 24 hours) at 08/03/2024 0702 Last data filed at 08/03/2024 0617 Gross per 24 hour Intake 1392.19 ml Output 950 ml Net 442.19 ml Vent Settings: Extubated Weight Wt Readings from Last 1 Encounters: 08/02/24 117 kg (258 lb 13.1 oz) General Appearance: Awake HEENT: NC/AT, conjunctivae/corneas/sclerae clear, no nasal drainage Lungs: soft Wheezing present Heart: RRR Abdomen: soft, non-tender & nondistended Hematologic/Lymphatics: no cervical, supraclavicular, axillary lymphadenopathy Musculoskeletal: No joint tenderness or swelling. Neurologic: Mental status intact, Sensation grossly intact. Labs: Recent Results (from the past 16 hours) Ammonia level Collection Time: 08/02/24 4:50 PM Result Value Ref Range Ammonia Lvl 64 (H) 10 - 28 umol/L Basic metabolic panel Collection Time: 08/02/24 4:50 PM Result Value Ref Range Glucose Lvl 139 (H) 70 - 99 mg/dL BUN 23 9 - 23 mg/dL Creatinine Lvl 0.89 0.7 - 1.30 mg/dL Sodium Lvl 140 136 - 145 mEq/L Potassium Lvl 3.8 3.4 - 4.5 mEq/L Chloride Lvl 109 (H) 98 - 107 mEq/L CO2 Lvl 22.9 20.0 - 31.0 mEq/L Anion Gap 11.9 10.0 - 20.0 mEq/L Calcium Lvl 8.0 (L) 8.3 - 10.6 mg/dL eGFR 66 >60 mL/min/1.73m2 B-type natriuretic peptide Collection Time: 08/02/24 4:50 PM Result Value Ref Range Natriuretic Peptide B 133 (H) 0 - 100 pg/mL Blood gas, venous Collection Time: 08/02/24 4:50 PM Result Value Ref Range Temp Gera 37.0 DegC pH Gera 7.30 7.28 - 7.42 PCO2 Gera 50 38 - 52 mmHg PO2 Gera 122 (H) 20 - 49 mmHg HCO3 Gera 24.6 22.0 - 26.0 mmol/L BE Gera -2 -2 - 2 mmol/L O2 Sat Gera 98.4 (H) 40.0 - 70.0 % Creatine kinase Collection Time: 08/02/24 4:50 PM Result Value Ref Range CK Total 154 62 - 302 U/L Hepatic function panel Collection Time: 08/02/24 4:50 PM Result Value Ref Range Protein 6.8 5.7 - 8.2 g/dL Albumin Lvl 2.6 (L) 3.4 - 5.0 g/dL Bilirubin Total 1.60 (H) 0.2 - 0.90 mg/dL Bilirubin Direct 0.7 (H) <=0.3 mg/dL Bilirubin Indirect 0.9 0.0 - 1.0 mg/dL Alkaline Phosphatase 134 (H) 46 - 116 U/L AST 34 12 - 40 U/L ALT 20 7 - 40 U/L Globulin, Calc 4.2 (H) 2.0 - 4.0 g/dL Albumin/Globulin Ratio 0.62 (L) 0.7 - 1.6 Lactic acid with 2 Hours Reflex Collection Time: 08/02/24 4:50 PM Result Value Ref Range Lactic Acid Lvl 1.55 0.5 - 2.2 mmol/L Lipase level Collection Time: 08/02/24 4:50 PM Result Value Ref Range Lipase Lvl 25 12 - 53 U/L Magnesium level Collection Time: 08/02/24 4:50 PM Result Value Ref Range Magnesium 1.87 1.6 - 2.60 mg/dL Phosphorus level Collection Time: 08/02/24 4:50 PM Result Value Ref Range Phosphorus Lvl 3.5 2.4 - 5.1 mg/dL Thyroid Stimulating Hormone w/ Reflex Free T4 Collection Time: 08/02/24 4:50 PM Result Value Ref Range TSH 1.378 0.550 - 4.780 uIU/mL Protime-INR Collection Time: 08/02/24 4:50 PM Result Value Ref Range Prothrombin Time (PT) 16.4 (H) 12 - 14.7 Seconds INR 1.30 (H) 0.85 - 1.17 PTT Collection Time: 08/02/24 4:50 PM Result Value Ref Range PTT 34.6 22.9 - 35.8 Seconds Thromboelastograph Rapid Collection Time: 08/02/24 4:50 PM Result Value Ref Range Activated Clotting Time (TEG) Rapid 136 (H) 86 - 118 sec Split Point Rapid 0.8 minutes R-time Rapid 0.9 (H) 0.4 - 0.7 minutes K-time Rapid 1.4 0.6 - 2.3 minutes Angle Rapid 72 64 - 80 degrees Max Amplitude Rapid 63 52 - 71 mm G-value Rapid 8.5 5.0 - 11.6 K d/sc Estimated % Lysis Rapid 0.4 0.0 - 7.5 % Troponin I High Sensitivity Careset (Baseline) Collection Time: 08/02/24 4:50 PM Result Value Ref Range HS Troponin I Baseline 82 (H) 0 - 54 pg/mL Complete Blood Count Collection Time: 08/02/24 4:50 PM Result Value Ref Range WBC 7.65 3.92-.10.07 10*3/uL RBC 4.12 (L) 4.27 - 6.02 10*6/uL NRBC % 0.0 0 /100 WBC Hgb 12.3 (L) 12.4 - 17.4 g/dL Hct 38.0 37.1 - 50.8 % MCV 92.2 79.2 - 96.8 fL MCH 29.9 26.1 - 32.4 pg MCHC 32.4 31.2 - 36.1 g/dL RDW - SD 54.6 (H) 34.0 - 37.0 fL Plt Count 150 (L) 160 - 381 10*3/uL MPV 9.4 9.0 - 12.0 fL Automated Differential Collection Time: 08/02/24 4:50 PM Result Value Ref Range Segs % 80.9 (H) 40.6 - 75.7 % Lymphs % 8.4 (L) 14.9 - 47.8 % Monos % 6.1 4.2 - 12.6 % Eos % 3.0 0.2 - 5.0 % Basos % 0.8 0.2 - 1.3 % Immature Grans % 0.8 0.1 - 1.0 % Segs # 6.19 1.48 - 6.56 10*3/uL Lymphs # 0.64 (L) 0.86 - 3.84 10*3/uL Monos # 0.47 0.29 - 0.96 10*3/uL Eos # 0.23 0.00 - 0.46 10*3/uL Basos # 0.06 0.01 - 0.08 10*3/uL Imm Grans # 0.06 0.01 - 0.07 10*3/uL ABORh Blood Type and Antibody Screen Collection Time: 08/02/24 5:34 PM Result Value Ref Range ABO Grouping A Rh Type Positive Antibody Screen Negative Troponin I High Sensitivity Careset (1st Hr) Collection Time: 08/02/24 6:12 PM Result Value Ref Range HS Troponin I 1 Hour 147 (H) 0 - 54 pg/mL HS Troponin I 0 to 1 Hour Delta 65 Influenza A/B antigens Collection Time: 08/02/24 8:01 PM Specimen: Nasopharynx; Swab Result Value Ref Range Influenza A Ag Negative Negative Influenza B Ag Negative Negative POC Glucose Collection Time: 08/02/24 10:57 PM Result Value Ref Range POC Glu 135 (H) 70 - 99 mg/dL POC Performing Location C2 MICU POC Arterial Blood Gas and Basic Panel Collection Time: 08/02/24 11:03 PM Result Value Ref Range POC A Temp 37.0 DegC POC A Source ART POC A pH 7.39 7.35 - 7.45 POC A PCO2 40 35 - 45 mmHg POC A PO2 85 80 - 100 mmHg POC A HCO3 24 22 - 26 mMol/L POC A BE -1 -2 - 2 mMol/L POC A O2 Sat (calc) 96.3 95 - 100 % POC A Hgb Tot 13.2 (L) 13.7 - 17.5 g/dL POC A Hct (calc) 40.0 (L) 40.1 - 51.0 % POC A Na 136 135 - 145 mEq/L POC A K 3.8 3.5 - 5.1 mEq/L POC Chloride 106 95 - 109 mEq/L POC A Glu 144 (H) 70 - 99 mg/dL POC A LA 1.1 0.5 - 2.2 mMol/L POC A Ca Ion 1.15 1.05 - 1.25 mMol/L POC A Ca Ion (7.4) 1.15 1.05 - 1.25 mmol/L POC A Mech R (bpm) 24 bpm POC A Mech VT 500.0 mL POC A PEEP 10.0 cmH20 POC A %FIO2 40.0 % POC Performing Location BG CLIN Basic metabolic panel Collection Time: 08/02/24 11:17 PM Result Value Ref Range Glucose Lvl 127 (H) 70 - 99 mg/dL BUN 23 9 - 23 mg/dL Creatinine Lvl 0.95 0.7 - 1.30 mg/dL Sodium Lvl 142 136 - 145 mEq/L Potassium Lvl 3.8 3.4 - 4.5 mEq/L Chloride Lvl 110 (H) 98 - 107 mEq/L CO2 Lvl 22.9 20.0 - 31.0 mEq/L Anion Gap 12.9 10.0 - 20.0 mEq/L Calcium Lvl 8.3 8.3 - 10.6 mg/dL eGFR 62 >60 mL/min/1.73m2 Troponin I High Sensitivity (Single Order) Collection Time: 08/02/24 11:17 PM Result Value Ref Range HS Troponin I 149 (H) 0 - 54 pg/mL Phosphorus Level Collection Time: 08/02/24 11:17 PM Result Value Ref Range Phosphorus Lvl 4.0 2.4 - 5.1 mg/dL Magnesium Level Collection Time: 08/02/24 11:17 PM Result Value Ref Range Magnesium 2.00 1.6 - 2.60 mg/dL Complete Blood Count Collection Time: 08/02/24 11:17 PM Result Value Ref Range WBC 6.29 3.92-.10.07 10*3/uL RBC 4.22 (L) 4.27 - 6.02 10*6/uL NRBC % 0.0 0 /100 WBC Hgb 12.9 12.4 - 17.4 g/dL Hct 39.3 37.1 - 50.8 % MCV 93.1 79.2 - 96.8 fL MCH 30.6 26.1 - 32.4 pg MCHC 32.8 31.2 - 36.1 g/dL RDW - SD 55.5 (H) 34.0 - 37.0 fL Plt Count 138 (L) 160 - 381 10*3/uL MPV 10.0 9.0 - 12.0 fL Automated Differential Collection Time: 08/02/24 11:17 PM Result Value Ref Range Segs % 62.8 40.6 - 75.7 % Lymphs % 21.9 14.9 - 47.8 % Monos % 11.4 4.2 - 12.6 % Eos % 2.5 0.2 - 5.0 % Basos % 0.8 0.2 - 1.3 % Immature Grans % 0.6 0.1 - 1.0 % Segs # 3.94 1.48 - 6.56 10*3/uL Lymphs # 1.38 0.86 - 3.84 10*3/uL Monos # 0.72 0.29 - 0.96 10*3/uL Eos # 0.16 0.00 - 0.46 10*3/uL Basos # 0.05 0.01 - 0.08 10*3/uL Imm Grans # 0.04 0.01 - 0.07 10*3/uL Vancomycin Level Collection Time: 08/02/24 11:17 PM Result Value Ref Range Vancomycin Lvl 17.7 Reference Range Not Established ug/mL UA with culture if indicated Collection Time: 08/03/24 1:02 AM Result Value Ref Range UA Color Yellow Yellow UA Turbidity Slight Cloudy (A) Clear UA Spec Grav >1.050 (H) <=1.030 UA pH 5.0 5.0 - 8.0 UA Protein 100 (A) Negative mg/dL UA Glucose Negative Negative mg/dL UA Ketones Trace (A) Negative mg/dL UA Bilirubin Negative Negative mg/dL UA Blood Large (A) Negative UA Urobilinogen <=1.0 0.1 - 1.0 mg/dL UA Nitrite Negative Negative UA Leuk Esterase Negative Negative UA Ascorbic Acid Negative Negative UA Sq Epi Occasional Few /LPF UA RBC (Num) >182 (H) 0 - 2 /HPF Drug Screen Urine (10 Drug) Collection Time: 08/03/24 1:02 AM Result Value Ref Range U Amph Scr Positive (A) Negative U Cande Scr Negative Negative U Benzodiaz Scr Positive (A) Negative U Cannab Scr Negative Negative U Cocaine Scr Negative Negative U FENTANYL Scr U Methadone Scr Negative Negative U Opiate Scr Negative Negative U Phencyclidine Scr Negative Negative U Propoxy Scr Negative Negative Legionella antigen, urine Collection Time: 08/03/24 1:02 AM Result Value Ref Range U Legionella Ag Negative Negative POC Glucose Collection Time: 08/03/24 3:09 AM Result Value Ref Range POC Glu 122 (H) 70 - 99 mg/dL POC Performing Location C2 MICU POC Arterial Blood Gas and Basic Panel Collection Time: 08/03/24 3:13 AM Result Value Ref Range POC A Temp 37.0 DegC POC A Source ART POC A pH 7.36 7.35 - 7.45 POC A PCO2 43 35 - 45 mmHg POC A PO2 115 80 - 100 mmHg POC A HCO3 24 22 - 26 mMol/L POC A BE -1 -2 - 2 mMol/L POC A O2 Sat (calc) 98.3 95 - 100 % POC A Hgb Tot 12.7 (L) 13.7 - 17.5 g/dL POC A Hct (calc) 38.0 (L) 40.1 - 51.0 % POC A Na 138 135 - 145 mEq/L POC A K 3.7 3.5 - 5.1 mEq/L POC Chloride 107 95 - 109 mEq/L POC A Glu 122 (H) 70 - 99 mg/dL POC A LA 1.1 0.5 - 2.2 mMol/L POC A Ca Ion 1.17 1.05 - 1.25 mMol/L POC A Ca Ion (7.4) 1.15 1.05 - 1.25 mmol/L POC A Mech R (bpm) 24 bpm POC A Mech VT 450.0 mL POC A PEEP 10.0 cmH20 POC A %FIO2 40.0 % POC Performing Location BG CLIN POC Glucose Collection Time: 08/03/24 3:43 AM Result Value Ref Range POC Glu 109 (H) 70 - 99 mg/dL POC Performing Location SP8 ICU Radiology Review: Reviewed. Medications:Scheduled: artificial tears, 1 Application, Both Eyes, q6h AIDA azithromycin, 500 mg, Intravenous, q24h cefepime, 1 g, Intravenous, q6h chlorhexidine, 15 mL, Mouth/Throat, 4x daily folic acid, 1 mg, Oral, Daily heparin, 7,500 Units, Subcutaneous, q8h AIDA hydrocortisone sodium succinate, 100 mg, Intravenous, Once lansoprazole, 30 mg, Per G Tube, Daily multivitamin, 1 tablet, Oral, Daily sodium chloride, 10 mL, Intravenous, q12h thiamine, 100 mg, Oral, Daily vancomycin, 1.25 g, Intravenous, q12h Prn: PRN medications: calcium gluconate, chlorhexidine, magnesium sulfate, nystatin, potassium & sodium phosphates OR potassium & sodium phosphates, potassium chloride OR potassium chloride OR potassium chloride OR Potassium chloride, sodium chloride, sodium chloride, sodium phosphates 45 mmol in sodium chloride 0.9 % 250 mL IVPB, Pharmacy to dose vancomycin AND Vancomycin Pharmacy Dosing Drips:fentaNYL, 50-200 mcg/hr, Last Rate: 100 mcg/hr (08/03/24 0143) midazolam, 1-10 mg/hr, Last Rate: Stopped (08/02/24 4569) norepinephrine, 5-70 mcg/min, Last Rate: 5 mcg/min (08/03/24 0417) Cosigned by Ebenezer Clarke MD at 08/03/2024 9:01 PM CDT * María Elena Aguayo MD - 08/03/2024 6:56 AM CDT Urologic Surgery Resident Progress Note Assessment: 89 y.o. male presents with AMS via [employer] for intubation. Urology consulted for difficult Ornelas placement. 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 Patient is s/p 16 Fr malecot suprapubic tube placement. Plan: - Continue 16 Fr SPT to drainage - Will need SPT to be in place for at least 8-10 weeks prior to next exchange to allow tract to heal - Recommend oxybutynin 10 mg XL daily and Levsin 0.125 mg sublingual every 6 hours PRN for bladder spasms. - If wishing to perform void trial, please cap SPT and have patient urinate through penile meatus - Will schedule for outpatient follow-up with Urology for SPT exchange María Elena Aguayo MD Urologic Surgery PGY-1 Subjective: No overnight events. Objective: Temp (24hrs), Av.8 ?C (96.4 ?F), Min:34.9 ?C (94.8 ?F), Max:37.9 ?C (100.2 ?F) Blood pressure 119/68, pulse 89, temperature (!) 35.8 ?C (96.4 ?F), resp. rate 24, height 1.803 m (5' 11"), weight 117 kg (258 lb 13.1 oz), SpO2 96%. I/O last 3 completed shifts: In: 500 (4.8 mL/kg) [I.V.:500 (4.8 mL/kg)] Out: - (0 mL/kg) Weight: 104.3 kg Physical Exam Neuro: in no apparent distress HEENT: normocephalic, atraumatic, neck supple CV: RRR Pulmonary: Intubated. lungs clear to auscultation bilateral Abdomen: soft, non-tender, non-distended Extremities: no edema, motor/sensation grossly intact Skin: normal temperature; no abrasions Vascular: palpable distal pulses in all extremities : 16 fr SPT draining clear, yellow urine Data Lab Results Component Value Date WBC 6.29 08/02/2024 RBC 4.22 (L) 08/02/2024 Hgb 12.9 08/02/2024 POC A Hct (calc) 38.0 (L) 08/03/2024 Hct 39.3 08/02/2024 MCH 30.6 08/02/2024 MCHC 32.8 08/02/2024 MCV 93.1 08/02/2024 Lab Results Component Value Date CO2 Lvl 22.9 08/02/2024 POC Chloride 107 08/03/2024 Chloride Lvl 110 (H) 08/02/2024 POC A Na 138 08/03/2024 Sodium Lvl 142 08/02/2024 POC A K 3.7 08/03/2024 Potassium Lvl 3.8 08/02/2024 BUN 23 08/02/2024 Phosphorus Lvl 4.0 08/02/2024 Lab Results Component Value Date ALT 20 08/02/2024 AST 34 08/02/2024 * Jessica Merrill PharmD - 08/03/2024 3:50 AM CDT Clinician Notes: Treatment Indication: Pneumonia Vancomycin Start Date: 08/02 at 1900 Next Level Due: 08/03 at 0400 with AM labs (ordered) [facility] Contact Number: [facility] at [phone] with questions. Recommended Dose: 1250 mg IV over 1.5 hours every 12 hours for 3 doses Next Dose At: 08:00 on Aug 03 2024 Dosing Interval: 12 hours Infusion Length: 1.5 hours Dose Valid For: 3 doses only Dose Recommendation Method: Guideline (Population model) Predicted Peak: 23.9 mcg/mL Predicted Trough: 15.1 mcg/mL Predicted AUC24: 459.3 mcg.h/mL Predicted AUC12: 229.6 mcg.h/mL * Laura Hector LCSW - 08/02/2024 5:53 PM CDT Subjective LURDES consulted for NOK. Possible name is Abad Harrington, possible :1955. LURDES did a chart search and found a chart with the number [phone]. LURDES attempted to call number with no answer. SW left a voice. Pt is a white male with no tattoos. [id number] 16:46:51Pending Results Scheduled Orders Name Type Priority Associated Diagnoses Order Schedule Blood gas, arterial Lab STAT STAT (Lab) for 1 Occurrences starting 08/02/2024 until 08/02/2024 Thoracentesis PFT Routine Once for 1 Occurrences starting 08/03/2024 until 08/03/2024 POCT Glucose Point of Care Testing - Docked Device Routine Every 4 hours (Lab) for 30 Days starting 08/03/2024 until 09/02/2024, 36 completed POCT Glucose Point of Care Testing - Docked Device Routine Every 15 minutes as needed until discontinued starting 08/03/2024 Oxygen Therapy - Patient Type: Adult; Device: Nasal Cannula; Rate in liters per minute: 4 Lpm; Follow Respiratory Pathway: Yes Respiratory Care Routine For RT frequenc y use only for continuous procedures with task-based reminders at 8a and 8p until discontinued starting 08/04/2024 Complete Blood Count w/Diff and Platelet Lab Routine Morning draw (Lab) for 10 Occurrences starting 08/08/2024 until 08/17/2024, 4 completed Comprehensive Metabolic Panel Lab Routine Morning draw (La b) for 10 Occurrences starting 08/08/2024 until 08/17/2024, 4 completed Magnesium Level Lab Routine Morning d raw (Lab) for 10 Occurrences starting 08/08/2024 until 08/17/2024, 4 completed Phosphorus Level Lab Routine Morning draw (Lab) for 10 Occurrences starting 08/08/2024 until 08/17/2024, 4 completed IR body biopsy lymph node Imaging Routine Once for 1 Occurrences starting 08/08/2024 until 08/08/2024 Non-Gynecologic Cytology Pathology and Cytology Routine Once (Lab) for 1 Occurrences starting 08/09/2024 until 08/09/2024, 1 completed Hepatitis C Viral RNA Genotype, LiPA Lab Routine Morning draw (La b) for 1 Occurrences starting 08/10/2024 until 08/10/2024 Testosterone, Free and Total Lab Routine Once (Lab) for 1 Occurrences starting 08/10/2024 until 08/10/2024 Scheduled Referrals Name Type Priority Associated Diagnoses Order Schedule Ambulatory referral to Oncology Nurse Navigation Outpatient Referral Routine 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) Expected: 08/10/2024 (Approximate), Expires: 02/08/2025 Referral to Home Health (specify) Outpatient Referral Routine Weak Severe sepsis with septic shock (CODE) (HCC) Expected: 08/11/2024 (Approximate), Expires: 02/09/2025 Health Maintenance Due Date Last Done Comments CT Colonography 1955 Colonoscopy 1955 Colorectal Cancer Screening 1955 Diabetes: Hemoglobin A1C 1955 FIT-DNA 1955 FIT 1955 FOBT 1955 Lipid Panel 1955 Medicare Annual Wellness (AWV) 1955 Sigmoidoscopy 1955 Pneumococcal Vaccine: 65+ Ye ars (1 of 2 - PCV) 1961 Diabetes: Foot Exam 1965 Diabetes: Retinopathy Screening 1965 DTaP/Tdap/Td Vaccines (1 - Tdap) 1974 Diabetes: Urine Protein Screening 1974 Hepatitis A Vaccines (1 of 2 - Risk 2-dose series) 1974 Zoster Vaccines (1 of 2) 2005 Hepatitis B Vaccines (1 of 3 - Risk 3-dose series) 2015 Respiratory Syncytial Virus (RSV) or >=60 (1 - 1-dose 60+ series) 2015 Influenza Vaccine (#1) 2024 HIB Vaccines Aged Out No longer eligi ble based on patient's age to complete this topic HPV Vaccines Aged Out No longer eligi ble based on patient's age to complete this topic IPV Vaccines Aged Out No longer eligi ble based on patient's age to complete this topic Meningococcal Vaccine Aged Out No jaswant brisa eligible based on patient's age to complete this topic Rotavirus Vaccines Aged Out No longer eligible based on patient's age to complete this topic [id number] 16:46:51 Diagnosis Altered mental status, unspe cified altered mental status type Malignant neoplasm metastati c to lymph nodes of multiple sites (HCC) Acute hypoxemic respiratory failure (HCC) Weak Other malaise and fatigue Severe sepsis with septic sh ock (CODE) (HCC) Altered mental status, unspe cified altered mental status type Metabolic encephalopathy Aspiration pneumonia (CMS/HCC) (HCC) Pneumonitis due to inhalation of food or vomitus Acute hypoxemic respiratory failure (HCC) Shock (CMS/HCC) (HCC) Unspecified shock Pleural effusion, right Unspecified pleural effusion Other cirrhosis of liver (HC C) Amphetamine dependency (CMS/ HCC) (HCC) Metastatic cancer (HCC) Other malignant neoplasm of unspecified site Right ventricular dilation Urinary retention Unspecified retention of urine Severe sepsis with septic sh ock (CODE) (HCC) Diabetes mellitus (HCC) Type II or unspecified type diabetes mellitus without mention of complication, not stated as uncontrolled Suprapubic catheter dysfunct ion (CMS/HCC) (HCC) Simple obesity Obesity, unspecified Acute hepatitis C virus infe ction without hepatic coma [id number] 16:46:51 [place] [id number] 16:24:29 Problem: Safety - Medical Restraint Goal: Remains free of injury from restraints (Restraint for Interference with P[employer]) Outcome: Adequate for Discharge Problem: Neurosensory - Adult Goal: Achieves maximal functionality and self care Outcome: Adequate for Discharge Problem: Respiratory - Adult Goal: Achieves optimal ventilation and oxygenation Outcome: Adequate for Discharge Problem: Cardiovascular - Adult Goal: Maintains optimal cardiac output and hemodynamic stability Outcome: Adequate for Discharge Problem: Skin/Tissue Integrity - Adult Goal: Skin integrity remains intact Outcome: Adequate for Discharge Wound nurse seen the patient today. Discharge order placed . Lift Wucher arranged by dialysis social worker . Ihsan [id number] 15:40:38 Images from the original note were not included. [id number] Confusion Confusion (delirium) is a change in a person?s ability to think clearly. They may have trouble recognizing familiar people and places or knowing what day it is. Memory, judgment, and decision-making may also be affected. In severe cases, the person may have limited or no response to being spoken to. Confusion often appears over a few days and can vary throughout the day. It can last weeks to months or longer, depending on the cause. Confusion is often a sign of an underlying problem. It may occur suddenly. Or it may develop gradually over time. Causes of confusion include: ? Brain injury ? Stroke ? Heart disease ? Low blood sugar in diabetes ? Medicines ? Alcohol ? Withdrawal from certain medicines or illegal drugs ? Infection, such as a urinary tract infection or pneumonia Confusion can also be a sign of low blood oxygen levels, dementia, or a mental illness. Treatment will depend on the cause of the problem. If infection is found, your loved one may need antibiotics. If the issue is a medicine, stopping the medicine may help. Thiamine supplement may help with very little risk of side effects. Benzodiazepines may help people who are undergoing alcohol withdrawal. If confusion is chronic, your loved one may need medicines to treat forms of dementia. Home care ? Be sure someone is with the confused person at all times. They should not be left alone or unsupervised. ? Tell the healthcare provider about all medicines that the person takes. These include prescription, [id number], herbs, and supplements. ? Dehydration can increase confusion. Ask the healthcare provider how much fluid the person should be drinking. Offer liquids and ensure that they are taken. ? Keep all medicines in a secure place under the caregiver?s control. To prevent overdose, a confused person should take medicines only under the supervision of a caregiver. ? To help a person with confusion: o Establish a daily routine. Change can be a source of stress for someone with confusion. Make and keep a time schedule for common tasks such as bathing, dressing, taking medicines, eating meals, going for walks, shopping, taking naps, and going to bed. Make sure that the person has glasses and hearing aids if needed. o Don't use physical restraints. o Speak slowly and clearly with a gentle tone of voice. Use short simple words and sentences. Ask 1 question at a time. Don't interrupt, criticize, or argue. Be calm and supportive. Use friendly facial expressions. Use pointing and touching to help communicate. If there has been loss of long-term memory, don't ask questions about past events. This would only cause frustration for the person. o Use lists, signs, family photos, clocks, and calendars as memory aids. Label cabinets and drawers. Try to distract, not confront, the person. When they become frustrated or upset, redirect attention to eating or some other activity of interest. o If this proves to be due to a permanent condition, talk to the healthcare provider or a lawyer probate about getting a Power of Weight Reduction Specialist for healthcare and for financial decisions. It's best to do this while the person can still sign legal documents and make decisions. Otherwise, a court order will be required. Follow-up care Follow up with the person's healthcare provider or as advised for further testing or changes in medical care. When to seek medical advice Call the healthcare provider for any of the following: ? Frequent falling ? Refusal to eat or drink ? Increased drowsiness ? Nausea or vomiting ? Unexplained fever over 100.4? F (38.0? C), or as directed by the healthcare provider Call 911 Call 911 right away if any of the following occur: ? Violent behavior or behavior too hard to manage at home ? New hallucinations or delusions ? Severe headache, numbness, or weakness of the face, arm, or leg ? Slurred speech or trouble speaking, walking, or seeing ? Fainting spell, dizziness, or seizure Last Reviewed Date: 2024 00:00:00 ? [id number] [employer]. All rights reserved. This information is not intended as a substitute for professional medical care. Always follow your healthcare professional's instructions. [facility] [id number] 15:40:37 Images from the original note were not included. [id number] Altered Level of Consciousness Level of consciousness (LOC) is a measure of a person?s ability to interact with other people and to react to what is around them. A person with an altered level of consciousness may not respond to touch or voices. They may look vacant or blank. They may not make eye contact with others. The person may be limp and may not move for a long time. Or they may show little interest in moving. They may also be confused. There are many causes of altered LOC. They include low blood sugar, infection, medicines, head injuries, seizures, stroke, and being intoxicated.. Altered LOC is a medical emergency. The healthcare provider will do tests to help find the cause. These may include blood tests and imaging tests. The person is treated so breathing and heart rate are stable. An IV (intravenous) line may be put into a vein in the arm or hand to give medicines. Once the cause of altered LOC is found, the goal is to treat the cause. In almost all cases, the person will be admitted to the hospital for diagnostic testing and observation. Some less common conditions, such as locked-in syndrome and akinetic mutism, seem like a coma. But the person is perfectly awake. Home care When your loved one is released from the hospital, you will be given guidelines for caring for them. In general: ? Follow the healthcare provider's instructions for giving any prescribed medicines to your child. ? Stay with your loved one or have another responsible adult look after them. Watch carefully for any return of symptoms or changes in behavior. ? If the person has diabetes, make sure that any approved medicines are given on time and as prescribed. Follow-up care Follow up with your healthcare provider, or our staff as advised. When to seek medical advice Call your healthcare provider right away if new symptoms appear. Call 911 Call 911 or get medical care right away if symptoms of altered LOC return. Last Reviewed Date: 2021 00:00:00 ? [id number] [employer]. All rights reserved. This information is not intended as a substitute for professional medical care. Always follow your healthcare professional's instructions. [facility]2024-10-24 15:40:20 Images from the original note were not included. [id number] Altered Level of Consciousness Level of consciousness (LOC) is a measure of a person?s ability to interact with other people and to react to what is around them. A person with an altered level of consciousness may not respond to touch or voices. They may look vacant or blank. They may not make eye contact with others. The person may be limp and may not move for a long time. Or they may show little interest in moving. They may also be confused. There are many causes of altered LOC. They include low blood sugar, infection, medicines, head injuries, seizures, stroke, and being intoxicated.. Altered LOC is a medical emergency. The healthcare provider will do tests to help find the cause. These may include blood tests and imaging tests. The person is treated so breathing and heart rate are stable. An IV (intravenous) line may be put into a vein in the arm or hand to give medicines. Once the cause of altered LOC is found, the goal is to treat the cause. In almost all cases, the person will be admitted to the hospital for diagnostic testing and observation. Some less common conditions, such as locked-in syndrome and akinetic mutism, seem like a coma. But the person is perfectly awake. Home care When your loved one is released from the hospital, you will be given guidelines for caring for them. In general: ? Follow the healthcare provider's instructions for giving any prescribed medicines to your child. ? Stay with your loved one or have another responsible adult look after them. Watch carefully for any return of symptoms or changes in behavior. ? If the person has diabetes, make sure that any approved medicines are given on time and as prescribed. Follow-up care Follow up with your healthcare provider, or our staff as advised. When to seek medical advice Call your healthcare provider right away if new symptoms appear. Call 911 Call 911 or get medical care right away if symptoms of altered LOC return. Last Reviewed Date: 2021 00:00:00 ? [id number] [employer]. All rights reserved. This information is not intended as a substitute for professional medical care. Always follow your healthcare professional's instructions. [facility]2024-10-24 15:40:19 Images from the original note were not included. [id number] Confusion Confusion (delirium) is a change in a person?s ability to think clearly. They may have trouble recognizing familiar people and places or knowing what day it is. Memory, judgment, and decision-making may also be affected. In severe cases, the person may have limited or no response to being spoken to. Confusion often appears over a few days and can vary throughout the day. It can last weeks to months or longer, depending on the cause. Confusion is often a sign of an underlying problem. It may occur suddenly. Or it may develop gradually over time. Causes of confusion include: ? Brain injury ? Stroke ? Heart disease ? Low blood sugar in diabetes ? Medicines ? Alcohol ? Withdrawal from certain medicines or illegal drugs ? Infection, such as a urinary tract infection or pneumonia Confusion can also be a sign of low blood oxygen levels, dementia, or a mental illness. Treatment will depend on the cause of the problem. If infection is found, your loved one may need antibiotics. If the issue is a medicine, stopping the medicine may help. Thiamine supplement may help with very little risk of side effects. Benzodiazepines may help people who are undergoing alcohol withdrawal. If confusion is chronic, your loved one may need medicines to treat forms of dementia. Home care ? Be sure someone is with the confused person at all times. They should not be left alone or unsupervised. ? Tell the healthcare provider about all medicines that the person takes. These include prescription, oovr-ghm-[id number], herbs, and supplements. ? Dehydration can increase confusion. Ask the healthcare provider how much fluid the person should be drinking. Offer liquids and ensure that they are taken. ? Keep all medicines in a secure place under the caregiver?s control. To prevent overdose, a confused person should take medicines only under the supervision of a caregiver. ? To help a person with confusion: o Establish a daily routine. Change can be a source of stress for someone with confusion. Make and keep a time schedule for common tasks such as bathing, dressing, taking medicines, eating meals, going for walks, shopping, taking naps, and going to bed. Make sure that the person has glasses and hearing aids if needed. o Don't use physical restraints. o Speak slowly and clearly with a gentle tone of voice. Use short simple words and sentences. Ask 1 question at a time. Don't interrupt, criticize, or argue. Be calm and supportive. Use friendly facial expressions. Use pointing and touching to help communicate. If there has been loss of long-term memory, don't ask questions about past events. This would only cause frustration for the person. o Use lists, signs, family photos, clocks, and calendars as memory aids. Label cabinets and drawers. Try to distract, not confront, the person. When they become frustrated or upset, redirect attention to eating or some other activity of interest. o If this proves to be due to a permanent condition, talk to the healthcare provider or a lawyer probate about getting a Power of Weight Reduction Specialist for healthcare and for financial decisions. It's best to do this while the person can still sign legal documents and make decisions. Otherwise, a court order will be required. Follow-up care Follow up with the person's healthcare provider or as advised for further testing or changes in medical care. When to seek medical advice Call the healthcare provider for any of the following: ? Frequent falling ? Refusal to eat or drink ? Increased drowsiness ? Nausea or vomiting ? Unexplained fever over 100.4? F (38.0? C), or as directed by the healthcare provider Call 911 Call 911 right away if any of the following occur: ? Violent behavior or behavior too hard to manage at home ? New hallucinations or delusions ? Severe headache, numbness, or weakness of the face, arm, or leg ? Slurred speech or trouble speaking, walking, or seeing ? Fainting spell, dizziness, or seizure Last Reviewed Date: 2024 00:00:00 ? [id number] [employer]. All rights reserved. This information is not intended as a substitute for professional medical care. Always follow your healthcare professional's instructions. [facility]2024-10-24 15:40:02 Images from the original note were not included. [id number] Tamsulosin Brand Name(s): Flomax?, Babs? (as a combination product containing Dutasteride, Tamsulosin); also available generically WHY is this medicine prescribed? Tamsulosin is used in men to treat the symptoms of an enlarged prostate (benign prostatic hyperplasia or BPH) which include difficulty urinating (hesitation, dribbling, weak stream, and incomplete bladder emptying), painful urination, and urinary frequency and urgency. Tamsulosin is in a class of medications called alpha blockers. It works by relaxing the muscles in the prostate and bladder so that urine can flow easily. HOW should this medicine be used? Tamsulosin comes as a capsule to take by mouth. It is usually taken once a day. Take tamsulosin 30 minutes after the same meal each day. Follow the directions on your prescription label carefully, and ask your doctor or pharmacist to explain any part you do not understand. Take tamsulosin exactly as directed. Do not take more or less of it or take it more often than prescribed by your doctor. Swallow tamsulosin capsules whole; do not split, chew, crush, or open them. Your doctor will probably start you on a low dose of tamsulosin and may increase your dose after 2 to 4 weeks. Tamsulosin may help control your condition, but it will not cure it. Continue to take tamsulosin even if you feel well. Do not stop taking tamsulosin without talking to your doctor. Are there OTHER USES for this medicine? This medication may be prescribed for other uses; ask your doctor or pharmacist for more information. What SPECIAL PRECAUTIONS should I follow? Before taking tamsulosin, ? tell your doctor and pharmacist if you are allergic to tamsulosin, sulfa medications, or any other medications. ? tell your doctor and pharmacist what prescription and nonprescription medications, vitamins, nutritional supplements and herbal products you are taking or plan to take while taking tamsulosin. Your doctor may need to change the doses of your medications or monitor you more carefully for side effects. ? the following nonprescription product may interact with tamsulosin: cimetidine (Tagamet). Be sure to let your doctor and pharmacist know that you are taking this medication before you start taking tamsulosin. Do not start this medication while taking tamsulosin without discussing with your healthcare provider. ? tell your doctor if you have or have ever had prostate cancer or liver or kidney disease. ? you should know that tamsulosin is only for use in men. Women should not take tamsulosin, especially if they are or could become or are breast-feeding. If a woman takes tamsulosin, she should call her doctor. ? if you are having surgery, including dental surgery, tell the doctor or dentist that you are taking tamsulosin. If you need to have eye surgery at any time during or after your treatment, be sure to tell your doctor that you are taking or have taken tamsulosin. ? you should know that this medication may make you drowsy or dizzy. Do not drive a car, operate machinery, or perform dangerous tasks until you know how this medication affects you. ? you should know that tamsulosin may cause dizziness, lightheadedness, a spinning sensation, and fainting, especially when you get up too quickly from a lying position. This is more common when you first start taking tamsulosin or after your dose is increased. To help avoid this problem, get out of bed slowly, resting your feet on the floor for a few minutes before standing up. Call your doctor if these symptoms are severe or do not go away. What should I do IF I FORGET to take a dose? Take the missed dose as soon as you remember it. However, if it is almost time for the next dose, skip the missed dose and continue your regular dosing schedule. Do not take a double dose to make up for a missed one. If you interrupt your treatment for several days or longer, call your doctor before restarting the medication, especially if you take more than one capsule of tamsulosin a day. What SIDE EFFECTS can this medicine cause? Tamsulosin may cause side effects. Tell your doctor if any of these symptoms or those in the SPECIAL PRECAUTIONS section are severe or do not go away: ? sleepiness ? difficulty falling asleep or staying asleep ? weakness ? back pain ? diarrhea ? runny or stuffy nose ? pain or pressure in the face ? sore throat, cough, fever, chills, or other signs of infection ? blurred vision ? difficulty ejaculating Some side effects can be serious. If you experience any of the following symptoms, call your doctor immediately: ? painful erection of the penis that lasts for hours ? rash ? itching ? hives ? swelling of the eyes, face, tongue, lips, throat, arms, hands, feet, ankles, or lower legs What should I know about STORAGE and DISPOSAL of this medication? Keep this medication in the container it came in, tightly closed, and out of reach of children. Store it at room temperature and away from excess heat and moisture (not in the bathroom). It is important to keep all medication out of sight and reach of children as many containers (such as weekly pill minders and those for eye drops, creams, patches, and inhalers) are not child-resistant and young children can open them easily. To protect young children from poisoning, always lock safety caps and immediately place the medication in a safe location - one that is up and away and out of their sight and reach. https://www.upandaway.org Unneeded medications should be disposed of in special ways to ensure that pets, children, and other people cannot consume them. However, you should not flush this medication down the toilet. Instead, the best way to dispose of your medication is through a medicine take-back program. Talk to your pharmacist or contact your local garbage/recycling department to learn about take-back programs in your community. See the FDA's Safe Disposal of Medicines website (https://goo.gl/c4Rm4p) for more information if you do not have access to a take-back program. What should I do in case of OVERDOSE? In case of overdose, call the poison control helpline at . Information is also available online at https://www.poisonhelp.org/help. If the victim has collapsed, had a seizure, has trouble breathing, or can't be awakened, immediately call emergency services at 571. Symptoms of overdose may include: ? dizziness ? fainting ? blurred vision ? upset stomach ? headache What OTHER INFORMATION should I know? Keep all appointments with your doctor. Do not let anyone else take your medication. Ask your pharmacist any questions you have about refilling your prescription. It is important for you to keep a written list of all of the prescription and nonprescription (rjmc-jjb-knjzadj) medicines you are taking, as well as any products such as vitamins, minerals, or other dietary supplements. You should bring this list with you each time you visit a doctor or if you are admitted to a hospital. It is also important information to carry with you in case of emergencies. This report on medications is for your information only, and is not considered individual patient advice. Because of the changing nature of drug information, please consult your physician or pharmacist about specific clinical use. [employer] represents that the information provided hereunder was formulated with a reasonable standard of care, and in conformity with professional standards in the field. [employer] makes no representations or warranties, express or implied, including, but not limited to, any implied warranty of merchantability and/or fitness for a particular purpose, with respect to such information and specifically disclaims all such warranties. Users are advised that decisions regarding drug therapy are complex medical decisions requiring the independent, informed decision of an appropriate health assisted living care manager, and the information is provided for informational purposes only. The entire monograph for a drug should be reviewed for a thorough understanding of the drug's actions, uses and side effects. [employer] does not endorse or recommend the use of any drug. The information is not a substitute for medical care. AHFS? Patient Medication Information?. ? Copyright, 2023. [employer]?, [address], [address], [place], [place]. All Rights Reserved. Duplication for commercial use must be authorized by [facility]. Selected Revisions: November 02, 2017. AHFS? Patient Medication Information?. ? Copyright, [address] [id number] Images from the original note were not included. [id number] Propranolol (Cardiovascular) Brand Name(s): Inderal?, Inderal? LA, Inderal? XL, InnoPran?, InnoPran? XL, Pronol?, Inderide? (as a combination product containing Hydrochlorothiazide, Propranolol), Inderide? LA (as a combination product containing Hydrochlorothiazide, Propranolol); also available generically WHY is this medicine prescribed? Propranolol is used alone or in combination with other medications to treat high blood pressure. It is also used to treat irregular heartbeats, pheochromocytoma (tumor on a small gland near the kidneys), certain types of tremor, and hypertrophic subaortic stenosis (a heart muscle disease). Propranolol is also used to prevent angina (chest pain), migraine headaches, and to improve survival after a heart attack. Propranolol is in a class of medications called beta blockers. It works by relaxing blood vessels and slowing heart rate to improve blood flow and decrease blood pressure. High blood pressure is a common condition and when not treated, can cause damage to the brain, heart, blood vessels, kidneys and other parts of the body. Damage to these organs may cause heart disease, a heart attack, heart failure, stroke, kidney failure, loss of vision, and other problems. In addition to taking medication, making lifestyle changes will also help to control your blood pressure. These changes include eating a diet that is low in fat and salt, maintaining a healthy weight, exercising at least 30 minutes most days, not smoking, and using alcohol in moderation. HOW should this medicine be used? Propranolol comes as a tablet, solution (liquid),and as an extended-release (long-acting) capsule to take by mouth. The extended-release propranolol capsule (brand name: Inderal LA) usually is taken once a day. The extended-release capsule (Innopran XL, Inderal XL) is usually taken at bedtime and should consistently be taken either always with or always without food each time. Immediate-acting propranolol tablets or solution may be taken two, three, or four times a day. Take propranolol at around the same time(s) every day. Follow the directions on your prescription label carefully, and ask your doctor or pharmacist to explain any part you do not understand. Take propranolol exactly as directed. Do not take more or less of it or take it more often than prescribed by your doctor. Swallow the extended-release capsules whole; do not split, chew, or crush them. Your doctor may start you on a low dose of propranolol and gradually increase your dose to allow your body to adjust to the medication. Talk to your doctor about how you feel and about any symptoms you experience during this time. Propranolol helps control your condition but will not cure it. Continue to take propranolol even if you feel well. Do not stop taking propranolol without talking to your doctor. If you suddenly stop taking propranolol, you may experience serious heart problems such as angina (chest pain), heart attack, or an irregular heartbeat. Your doctor will probably want to decrease your dose gradually over 1 to 2 weeks. Your doctor will watch you carefully and will probably tell you to avoid physical activity during this time. Are there OTHER USES for this medicine? This medication may be prescribed for other uses; ask your doctor or pharmacist for more information. What SPECIAL PRECAUTIONS should I follow? Before taking propranolol, ? tell your doctor and pharmacist if you are allergic to propranolol, any other medications, or any ingredients in propranolol tablets, oral solution, or extended-release capsules. Ask your pharmacist for a list of the ingredients. ? tell your doctor and pharmacist what prescription and nonprescription medications, vitamins, nutritional supplements, and herbal products you are taking or plan to take. Your doctor may need to change the doses of your medications or monitor you carefully for side effects. ? The following nonprescription or herbal products may interact with propranolol: antacids containing aluminum (Maalox, Mylanta, others), cimetidine (Tagamet HB); and nonsteroidal anti-inflammatory drugs (NSAIDs) such as ibuprofen (Advil, Motrin, others) and naproxen (Aleve, Naprosyn, others). Be sure to let your doctor and pharmacist know that you are taking this medication before you start taking propranolol. Do not start this medication while taking propranolol without discussing with your healthcare provider. ? tell your doctor if you have a slow or irregular heartbeat, heart failure, or asthma or other lung disease. Your doctor may tell you not to take propranolol. ? tell your doctor if you have or have ever had: heart, liver, or kidney disease; diabetes; pheochromocytoma (a tumor that develops on a gland near the kidneys and may cause high blood pressure and fast heart rate) or hyperthyroidism (an overactive thyroid gland). Also tell your doctor if you have ever had a serious allergic reaction to a food or any other substance. ? tell your doctor if you are , plan to become , or are breast-feeding. If you become while taking propranolol, call your doctor. ? if you are having surgery, including dental surgery, tell the doctor or dentist that you are taking propranolol. ? ask your doctor about the safe use of alcoholic beverages while you are taking propranolol. Alcohol may increase the amount of propranolol in your body. ? tell your doctor if you use tobacco products. Cigarette smoking may decrease the effectiveness of this medication. ? you should know that propranolol may increase the risk of hypoglycemia (low blood sugar) and prevent the warning signs and symptoms that would tell you that your blood sugar is low. Let your doctor know if you are unable to eat or drink normally or are vomiting while you are taking propranolol. You should know the symptoms of low blood sugar and what to do if you have these symptoms. ? you should know that if you have allergic reactions to different substances, your reactions may be worse while you are taking propranolol and your allergic reactions may not respond to the usual doses of injectable epinephrine. What SPECIAL DIETARY instructions should I follow? Unless your doctor tells you otherwise, continue your normal diet. What should I do IF I FORGET to take a dose? Take the missed dose as soon as you remember it. However, if it is almost time for the next dose, skip the missed dose and continue your regular dosing schedule. Do not take a double dose to make up for a missed one. What SIDE EFFECTS can this medicine cause? Propranolol may cause side effects. Tell your doctor if any of these symptoms are severe or do not go away: ? dizziness or lightheadedness ? tiredness ? diarrhea ? constipation ? Some side effects can be serious. If you experience any of the following symptoms, call your doctor immediately or get emergency medical treatment: ? difficulty breathing or swallowing ? rash ? blistering or peeling skin ? hives ? itching ? swelling of the face, throat, tongue, or lips ? feeling faint ? unusual weight gain ? shortness of breath ? irregular heartbeat Propranolol may cause other side effects. Call your doctor if you have any unusual problems while you are using this medication. If you experience a serious side effect, you or your doctor may send a report to the Food and Drug Administration's (FDA) MedWatch Adverse Event Reporting program online (https://www.fda.gov/Safety/MedWatch) or by phone ( ). What should I know about STORAGE and DISPOSAL of this medication? Keep this medication in the container it came in, tightly closed, and out of reach of children. Store it at room temperature and away from light, excess heat, and moisture (not in the bathroom). Unneeded medications should be disposed of in special ways to ensure that pets, children, and other people cannot consume them. However, you should not flush this medication down the toilet. Instead, the best way to dispose of your medication is through a medicine take-back program. Talk to your pharmacist or contact your local garbage/recycling department to learn about take-back programs in your community. See the FDA's Safe Disposal of Medicines website (https://goo.gl/c4Rm4p) for more information if you do not have access to a take-back program. It is important to keep all medication out of sight and reach of children as many containers (such as weekly pill minders and those for eye drops, creams, patches, and inhalers) are not child-resistant and young children can open them easily. To protect young children from poisoning, always lock safety caps and immediately place the medication in a safe location - one that is up and away and out of their sight and reach. https://www.upandaway.org What should I do in case of OVERDOSE? In case of overdose, call the poison control helpline at . Information is also available online at https://www.poisonhelp.org/help. If the victim has collapsed, had a seizure, has trouble breathing, or can't be awakened, immediately call emergency services at 911. Symptoms of overdose may include: ? slow heartbeat ? dizziness ? fatigue or weakness ? fainting ? difficulty breathing ? cough or wheezing What OTHER INFORMATION should I know? Keep all appointments with your doctor and the laboratory. Your doctor will need to determine your response to propranolol. Your doctor may ask you to check your pulse (heart rate). Ask your pharmacist or doctor to teach you how to take your pulse. If your pulse is faster or slower than it should be, call your doctor. Before you are tested for glaucoma (increased pressure in your eyes that may lead to vision loss), tell your doctor and the slot technician that you are taking propranolol. Do not let anyone else take your medication. Ask your pharmacist any questions you have about refilling your prescription. It is important for you to keep a written list of all of the prescription and nonprescription (oqig-[id number]) medicines you are taking, as well as any products such as vitamins, minerals, or other dietary supplements. You should bring this list with you each time you visit a doctor or if you are admitted to a hospital. It is also important information to carry with you in case of emergencies. This report on medications is for your information only, and is not considered individual patient advice. Because of the changing nature of drug information, please consult your physician or pharmacist about specific clinical use. The [employer] represents that the information provided hereunder was formulated with a reasonable standard of care, and in conformity with professional standards in the field. [employer] makes no representations or warranties, express or implied, including, but not limited to, any implied warranty of merchantability and/or fitness for a particular purpose, with respect to such information and specifically disclaims all such warranties. Users are advised that decisions regarding drug therapy are complex medical decisions requiring the independent, informed decision of an appropriate health assisted living care manager, and the information is provided for informational purposes only. The entire monograph for a drug should be reviewed for a thorough understanding of the drug's actions, uses and side effects. The [employer] does not endorse or recommend the use of any drug. The information is not a substitute for medical care. AHFS? Patient Medication Information?. ? Copyright, 2023. [employer]?, [address], [address], [place], [place]. All Rights Reserved. Duplication for commercial use must be authorized by [facility]. Selected Revisions: June 02, 2023. AHFS? Patient Medication Information?. ? Copyright, [address] [id number] 14:34:07 Security called to make sure weather there is any patient belonging with them as patient getting discharged Juan Miguel in security room stated they dont have any belonging with security [id number] 06:00:00 Bladder scan shows 119ml [address] [id number] 05:14:24 The patient is Moderately Stable - Low risk of patient condition declining or worsening The patient's goals for the shift include safety,comfort The clinical goals for the shift include clinical improvement [facility]2024-10-24 01:23:00 Found that Patient's SPC tube is out. MD informed . Patient seen and assessed by the MD. [facility]2024-10-23 16:11:17 The patient is Moderately Stable - Low risk of patient condition declining or worsening The patient's goals for the shift include safety and comfort The clinical goals for the shift include Clinical improvement [facility] [id number] 13:58:17 Problem: Inadequate Oral Intake (2.1) Goal: Food and/or Nutrient Delivery (ND) Outcome: Adequate for Discharge 08/10 Interventions and Recommendation: 1) order PB&J sandwich daily (pm) to enjoy between meal times 2) continue regular diet. Registered Dietitian: La Leblanc MS, RD, LD Thursday-Thursday office phone [phone] Thursday-Thursday pager [phone] Weekend/On-call pager [phone] [facility]2024-10-23 06:29:06 Problem: Safety - Medical Restraint Goal: Remains free of injury from restraints (Restraint for Interference with Poultry Culler) Outcome: Progressing Goal: Free from restraint(s) (Restraint for Interference with Poultry Culler) Outcome: Progressing Problem: Neurosensory - Adult Goal: Achieves maximal functionality and self care Outcome: Progressing Problem: Respiratory - Adult Goal: Achieves optimal ventilation and oxygenation Outcome: Progressing Problem: Cardiovascular - Adult Goal: Maintains optimal cardiac output and hemodynamic stability Outcome: Progressing Goal: Absence of cardiac dysrhythmias or at baseline Outcome: Progressing Problem: Skin/Tissue Integrity - Adult Goal: Incisions, wounds, or drain sites healing without S/S of infection Outcome: Progressing Goal: Oral mucous membranes remain intact Outcome: Progressing Problem: Musculoskeletal - Adult Goal: Return mobility to safest level of function Outcome: Progressing Goal: Maintain proper alignment of affected body part Outcome: Progressing Goal: Return ADL status to a safe level of function Outcome: Progressing Problem: Gastrointestinal - Adult Goal: Minimal or absence of nausea and vomiting Outcome: Progressing Goal: Maintains or returns to baseline bowel function Outcome: Progressing Goal: Maintains adequate nutritional intake Outcome: Progressing Problem: Genitourinary - Adult Goal: Absence of urinary retention Outcome: Progressing Goal: Urinary catheter remains patent Outcome: Progressing Problem: Infection - Adult Goal: Absence of infection at discharge Outcome: Progressing Goal: Absence of infection during hospitalization Outcome: Progressing Goal: Absence of fever/infection during anticipated neutropenic period Outcome: Progressing Problem: Metabolic/Fluid and Electrolytes - Adult Goal: Electrolytes maintained within normal limits Outcome: Progressing Goal: Hemodynamic stability and optimal renal function maintained Outcome: Progressing Goal: Glucose maintained within prescribed range Outcome: Progressing Problem: Hematologic - Adult Goal: Maintains hematologic stability Outcome: Progressing The patient is Moderately Stable - Low risk of patient condition declining or worsening The patient's goals for the shift include pt safety The clinical goals for the shift include back to baseline [facility]2024-10-22 03:11:44 The patient is Moderately Stable - Low risk of patient condition declining or worsening [facility] [id number] 16:43:54 Problem: Respiratory - Adult Goal: Achieves optimal ventilation and oxygenation Outcome: Progressing Problem: Cardiovascular - Adult Goal: Maintains optimal cardiac output and hemodynamic stability Outcome: Progressing Problem: Skin/Tissue Integrity - Adult Goal: Skin integrity remains intact Outcome: Progressing IR consult done so IR doctor who came to take consent stated there is plan for lymph node biopsy tomorrow stated and she stated she will contact the attending to place the order for same [facility]2024-10-20 20:00:00 The patient is Moderately Stable - Low risk of patient condition declining or worsening Problem: Safety - Medical Restraint Goal: Remains free of injury from restraints (Restraint for Interference with Poultry Culler) Outcome: Progressing Goal: Free from restraint(s) (Restraint for Interference with Poultry Culler) Outcome: Progressing The patient's goals for the shift include safety and comfort The clinical goals for the shift include clinical improvement Problem: Safety - Medical Restraint Goal: Remains free of injury from restraints (Restraint for Interference with Poultry Culler) Outcome: Progressing Goal: Free from restraint(s) (Restraint for Interference with Poultry Culler) Outcome: Progressing [facility]2024-10-20 18:23:22 The patient is Moderately Stable - Low risk of patient condition declining or worsening The patient's goals for the shift include safety and comfort The clinical goals for the shift include clinical improvement Problem: Safety - Medical Restraint Goal: Remains free of injury from restraints (Restraint for Interference with Poultry Culler) Outcome: Ongoing Goal: Free from restraint(s) (Restraint for Interference with Poultry Culler) Outcome: Ongoing Problem: Neurosensory - Adult Goal: Achieves maximal functionality and self care Outcome: Ongoing Problem: Respiratory - Adult Goal: Achieves optimal ventilation and oxygenation Outcome: Ongoing Problem: Cardiovascular - Adult Goal: Maintains optimal cardiac output and hemodynamic stability Outcome: Ongoing Goal: Absence of cardiac dysrhythmias or at baseline Outcome: Ongoing Problem: Skin/Tissue Integrity - Adult Goal: Skin integrity remains intact Outcome: Ongoing Goal: Incisions, wounds, or drain sites healing without S/S of infection Outcome: Ongoing Goal: Oral mucous membranes remain intact Outcome: Ongoing Problem: Musculoskeletal - Adult Goal: Return mobility to safest level of function Outcome: Ongoing Goal: Maintain proper alignment of affected body part Outcome: Ongoing Goal: Return ADL status to a safe level of function Outcome: Ongoing Problem: Gastrointestinal - Adult Goal: Minimal or absence of nausea and vomiting Outcome: Ongoing Goal: Maintains or returns to baseline bowel function Outcome: Ongoing Goal: Maintains adequate nutritional intake Outcome: Ongoing Problem: Infection - Adult Goal: Absence of infection at discharge Outcome: Ongoing Goal: Absence of infection during hospitalization Outcome: Ongoing Goal: Absence of fever/infection during anticipated neutropenic period Outcome: Ongoing Problem: Metabolic/Fluid and Electrolytes - Adult Goal: Electrolytes maintained within normal limits Outcome: Ongoing Goal: Hemodynamic stability and optimal renal function maintained Outcome: Ongoing Goal: Glucose maintained within prescribed range Outcome: Ongoing Problem: Hematologic - Adult Goal: Maintains hematologic stability Outcome: Ongoing T [facility] [id number] 10:51:26 The patient is Moderately Stable - Low risk of patient condition declining or worsening The patient's goals for the shift include safety and comfort The clinical goals for the shift include clinical improvement Problem: Safety - Medical Restraint Goal: Remains free of injury from restraints (Restraint for Interference with Poultry Culler) Outcome: Ongoing Goal: Free from restraint(s) (Restraint for Interference with Poultry Culler) Outcome: Ongoing Problem: Neurosensory - Adult Goal: Achieves maximal functionality and self care Outcome: Ongoing Problem: Respiratory - Adult Goal: Achieves optimal ventilation and oxygenation Outcome: Ongoing Problem: Cardiovascular - Adult Goal: Maintains optimal cardiac output and hemodynamic stability Outcome: Ongoing Goal: Absence of cardiac dysrhythmias or at baseline Outcome: Ongoing Problem: Skin/Tissue Integrity - Adult Goal: Skin integrity remains intact Outcome: Ongoing Goal: Incisions, wounds, or drain sites healing without S/S of infection Outcome: Ongoing Goal: Oral mucous membranes remain intact Outcome: Ongoing Problem: Musculoskeletal - Adult Goal: Return mobility to safest level of function Outcome: Ongoing Goal: Maintain proper alignment of affected body part Outcome: Ongoing Goal: Return ADL status to a safe level of function Outcome: Ongoing Problem: Gastrointestinal - Adult Goal: Minimal or absence of nausea and vomiting Outcome: Ongoing Goal: Maintains or returns to baseline bowel function Outcome: Ongoing Goal: Maintains adequate nutritional intake Outcome: Ongoing Problem: Infection - Adult Goal: Absence of infection at discharge Outcome: Ongoing Goal: Absence of infection during hospitalization Outcome: Ongoing Goal: Absence of fever/infection during anticipated neutropenic period Outcome: Ongoing Problem: Metabolic/Fluid and Electrolytes - Adult Goal: Electrolytes maintained within normal limits Outcome: Ongoing Goal: Hemodynamic stability and optimal renal function maintained Outcome: Ongoing Goal: Glucose maintained within prescribed range Outcome: Ongoing Problem: Hematologic - Adult Goal: Maintains hematologic stability Outcome: Ongoing [facility]2024-10-19 20:00:00 The patient is Moderately Stable - Low risk of patient condition declining or worsening The patient's goals for the shift include safety and comfort The clinical goals for the shift include safety and comfrot Problem: Safety - Medical Restraint Goal: Remains free of injury from restraints (Restraint for Interference with Poultry Culler) Outcome: Progressing Goal: Free from restraint(s) (Restraint for Interference with Poultry Culler) Outcome: Progressing Problem: Neurosensory - Adult Goal: Achieves maximal functionality and self care Outcome: Progressing Problem: Respiratory - Adult Goal: Achieves optimal ventilation and oxygenation Outcome: Progressing Problem: Cardiovascular - Adult Goal: Maintains optimal cardiac output and hemodynamic stability Outcome: Progressing Goal: Absence of cardiac dysrhythmias or at baseline Outcome: Progressing Problem: Skin/Tissue Integrity - Adult Goal: Skin integrity remains intact Outcome: Progressing Goal: Incisions, wounds, or drain sites healing without S/S of infection Outcome: Progressing Goal: Oral mucous membranes remain intact Outcome: Progressing Problem: Musculoskeletal - Adult Goal: Return mobility to safest level of function Outcome: Progressing Goal: Maintain proper alignment of affected body part Outcome: Progressing Goal: Return ADL status to a safe level of function Outcome: Progressing Problem: Gastrointestinal - Adult Goal: Minimal or absence of nausea and vomiting Outcome: Progressing Goal: Maintains or returns to baseline bowel function Outcome: Progressing Goal: Maintains adequate nutritional intake Outcome: Progressing Problem: Genitourinary - Adult Goal: Absence of urinary retention Outcome: Progressing Goal: Urinary catheter remains patent Outcome: Progressing Problem: Infection - Adult Goal: Absence of infection at discharge Outcome: Progressing Goal: Absence of infection during hospitalization Outcome: Progressing Goal: Absence of fever/infection during anticipated neutropenic period Outcome: Progressing Problem: Metabolic/Fluid and Electrolytes - Adult Goal: Electrolytes maintained within normal limits Outcome: Progressing Goal: Hemodynamic stability and optimal renal function maintained Outcome: Progressing Goal: Glucose maintained within prescribed range Outcome: Progressing Problem: Hematologic - Adult Goal: Maintains hematologic stability Outcome: Progressing [facility]2024-10-19 15:47:06 The patient is Moderately Stable - Low risk of patient condition declining or worsening The patient's goals for the shift include safety and comfort The clinical goals for the shift include safety and comfort Over the shift, the patient did not make progress toward the following goals. Barriers to progression include none. Recommendations to address these barriers include none. [facility] [id number] 07:09:01 The patient is Moderately Stable - Low risk of patient condition declining or worsening The patient's goals for the shift include Improved mental status The clinical goals for the shift include Wean vent as tolerated; maintain pt comfort Problem: Safety - Medical Restraint Goal: Remains free of injury from restraints (Restraint for Interference with Poultry Culler) Outcome: Progressing Goal: Free from restraint(s) (Restraint for Interference with Poultry Culler) Outcome: Progressing Problem: Neurosensory - Adult Goal: Achieves stable or improved neurological status Outcome: Progressing Flowsheets (Taken 08/05/20241999) Achieves stable or improved neurological status: Assess for and report changes in neurological status Goal: Achieves maximal functionality and self care Outcome: Progressing Flowsheets (Taken 08/05/20241999) Achieves maximal functionality and self care: Monitor swallowing and airway patency with patient fatigue and changes in neurological status Problem: Respiratory - Adult Goal: Achieves optimal ventilation and oxygenation Outcome: Progressing Problem: Cardiovascular - Adult Goal: Maintains optimal cardiac output and hemodynamic stability Outcome: Progressing Goal: Absence of cardiac dysrhythmias or at baseline Outcome: Progressing Problem: Skin/Tissue Integrity - Adult Goal: Skin integrity remains intact Outcome: Progressing Goal: Incisions, wounds, or drain sites healing without S/S of infection Outcome: Progressing Goal: Oral mucous membranes remain intact Outcome: Progressing Problem: Musculoskeletal - Adult Goal: Return mobility to safest level of function Outcome: Progressing Goal: Maintain proper alignment of affected body part Outcome: Progressing Goal: Return ADL status to a safe level of function Outcome: Progressing Problem: Gastrointestinal - Adult Goal: Minimal or absence of nausea and vomiting Outcome: Progressing Goal: Maintains or returns to baseline bowel function Outcome: Progressing Goal: Maintains adequate nutritional intake Outcome: Progressing Problem: Genitourinary - Adult Goal: Absence of urinary retention Outcome: Progressing Goal: Urinary catheter remains patent Outcome: Progressing Problem: Infection - Adult Goal: Absence of infection at discharge Outcome: Progressing Goal: Absence of infection during hospitalization Outcome: Progressing Goal: Absence of fever/infection during anticipated neutropenic period Outcome: Progressing Problem: Metabolic/Fluid and Electrolytes - Adult Goal: Electrolytes maintained within normal limits Outcome: Progressing Goal: Hemodynamic stability and optimal renal function maintained Outcome: Progressing Goal: Glucose maintained within prescribed range Outcome: Progressing Problem: Hematologic - Adult Goal: Maintains hematologic stability Outcome: Progressing [facility] Ihsan [id number] 20:00:00 The patient is Moderately Stable - Low risk of patient condition declining or worsening The patient's goals for the shift include no pain Problem: Metabolic/Fluid and Electrolytes - Adult Goal: Glucose maintained within prescribed range 08/06/2024725 by Lady Mirta Nur RN Outcome: Progressing 08/06/2024 07 by Lady Mirta Nur RN Outcome: Progressing Problem: Hematologic - Adult Goal: Maintains hematologic stability 08/06/2024725 by Lady Mirta Nur RN Outcome: Progressing 08/06/2024 07 by Lady Mirta Nur RN Outcome: Progressing Problem: Genitourinary - Adult Goal: Urinary catheter remains patent 08/06/2024725 by Lady Mirta Nur RN Outcome: Progressing 08/06/2024 0708 by Lady Mirta Nur RN Outcome: Progressing Problem: Infection - Adult Goal: Absence of infection at discharge 08/06/2024725 by Lady Mirta Nur RN Outcome: Progressing 08/06/2024 07 by Lady Mirta Nur RN Outcome: Progressing Problem: Infection - Adult Goal: Absence of infection during hospitalization 08/06/2024725 by Lady Mirta Nur RN Outcome: Progressing 08/06/2024 0708 by Lady Mirta Nur RN Outcome: Progressing Problem: Infection - Adult Goal: Absence of fever/infection during anticipated neutropenic period 08/06/2024725 by Lady Mirta Nur RN Outcome: Progressing 08/06/2024 07 by Lady Mirta Nur RN Outcome: Progressing Problem: Gastrointestinal - Adult Goal: Minimal or absence of nausea and vomiting 08/06/2024725 by Lady Mirta Nur RN Outcome: Progressing 08/06/2024 07 by Lady Mirta Nur RN Outcome: Progressing Problem: Gastrointestinal - Adult Goal: Maintains or returns to baseline bowel function 08/06/2024725 by Lady Mirta Nur RN Outcome: Progressing 08/06/2024707 by Lady Mirta Nur RN Outcome: Progressing Problem: Gastrointestinal - Adult Goal: Maintains adequate nutritional intake 08/06/2024725 by Lady Mirta Nur RN Outcome: Progressing 08/06/2024707 by Lady Mirta Nur RN Outcome: Progressing Problem: Skin/Tissue Integrity - Adult Goal: Incisions, wounds, or drain sites healing without S/S of infection 08/06/2024725 by Lady Mirta Nur RN Outcome: Progressing 08/06/2024707 by Lady Mirta Nur RN Outcome: [facility]ing [facility]23 Patient transferred out of unit via bed. Patient remained AAO x 4, in no apparent distress, and verbalized no complaints at this time. Report previously called to YOLI Harris on [place] [address] [facility] [id number] 16:00:00 The patient is Moderately Stable - Low risk of patient condition declining or worsening The patient's goals for the shift include work with PT/OT to maximize mobility The clinical goals for the shift include improve PO fluid intake Over the shift, the patient did not make progress toward the following goals. Barriers to progression include lack of motivation. Recommendations to address these barriers include increase forms of participation for patient to assist in care. Problem: Neurosensory - Adult Goal: Achieves maximal functionality and self care Outcome: Not Progressing Problem: Musculoskeletal - Adult Goal: Return mobility to safest level of function Outcome: Not Progressing Goal: Return ADL status to a safe level of function Outcome: Not Progressing Problem: Gastrointestinal - Adult Goal: Maintains adequate nutritional intake Outcome: Not Progressing Problem: Genitourinary - Adult Goal: Absence of urinary retention Outcome: Not Progressing [facility]2024-10-18 10:23:24 Patient found in bed resting after breakfast. RN clamped suprapubic catheter at request of attending MD, Dr. Clarke. Will follow up and continue to monitor with patient to attempt voiding trial [facility]2024-10-17 18:11:33 The patient is Moderately Stable - Low risk of patient condition declining or worsening The patient's goals for the shift include Improved mental status The clinical goals for the shift include Transfer out of ICU Over the shift, the patient did not make progress toward the following goals. Barriers to progression include bed availability. Recommendations to address these barriers include continue to encourage patient engagement. [facility]2024-10-16 08:42:47 The patient is Moderately Unstable - Medium risk of patient condition declining or worsening The patient's goals for the shift include Improved mental status The clinical goals for the shift include Wean vent as tolerated; maintain pt comfort Over the shift, the patient did not make progress toward the following goals. Barriers to progression include mental capacity. Recommendations to address these barriers include reorientation. [facility] Hospital[facility]wyajcs2590-26-03 03:00:05 The patient is Moderately Stable - Low risk of patient condition declining or worsening The patient's goals for the shift include Improved mental status The clinical goals for the shift include Wean vent as tolerated; maintain pt comfort Over the shift, the patient did not make progress toward the following goals. Barriers to progression include agitation. Recommendations to address these barriers include reorientation. Problem: Safety - Medical Restraint Goal: Remains free of injury from restraints (Restraint for Interference with P[employer]) Outcome: Progressing Goal: Free from restraint(s) (Restraint for Interference with P[employer] C[employer]er) Outcome: Progressing Problem: Neurosensory - Adult Goal: Achieves stable or improved neurological status Outcome: Progressing Goal: Achieves maximal functionality and self care Outcome: Progressing Problem: Respiratory - Adult Goal: Achieves optimal ventilation and oxygenation Outcome: Progressing Problem: Skin/Tissue Integrity - Adult Goal: Skin integrity remains intact Outcome: Progressing [facility] [id number] 00:42:[address] [facility]Cqanrni1413-08-64 00:42:21* Audit-C Score Answer Date of Assessment Author -1 08/02/2024 11:16 PM KARLAT Jessica Chaparro RN * Intimate Partner Violence Question Answer Date of Assessment Author Within the last year, have you been humiliated or emotionally abused in other ways by your partner or ex-partner? Patient unable to answer 08/02/2024 11:16 PM Jessica Angel RN Within the last year, have you been afraid of your partner or ex-partner? Patient unable to answer 08/02/2024 11:16 PM KARLAT Jessica Chaparro RN Within the last year, have you been raped or forced to have any kind of sexual activity by your partner or ex-partner? Patient unable to answer 08/02/2024 11:16 PM Jessica Angel RN Within the last year, have you been kicked, hit, slapped, or otherwise physically hurt by your partner or ex-partner? Patient unable to answer 08/02/2024 11:16 PM Jessica Angel RN * [id number] 00:42:21 [place] [id number] 23:46:39 The patient is Moderately Stable - Low risk of patient condition declining or worsening The patient's goals for the shift include Improved mental status The clinical goals for the shift include Wean vent as tolerated; maintain pt comfort Over the shift, the patient did not make progress toward the following goals. Barriers to progression include pt mental status. Recommendations to address these barriers include wean vent/sedation as tolerated. Problem: Neurosensory - Adult Goal: Achieves stable or improved neurological status Outcome: Not Progressing Goal: Achieves maximal functionality and self care Outcome: Not Progressing Problem: Safety - Medical Restraint Goal: Remains free of injury from restraints (Restraint for Interference with P[employer]) Outcome: Ongoing Goal: Free from restraint(s) (Restraint for Interference with P[employer] C[employer]) Outcome: Ongoing Ihsan AndinoSrpeknf9438-19-55 12:07:36* EXAM: ABDOMEN ULTRASOUND DATE: 06/04/2016 10:47 AM CDT . CLINICAL INDICATION: . History of hepatitis C ADDITIONAL DATA: None COMPARISON: None TECHNIQUE: Multiplanar grayscale and color Doppler ultrasound images of the abdomen were obtained. DISCUSSION: Liver demonstrates increased echogenicity without masses. Right hepatic lobe measures 19.8 cm at the midclavicular line. Main portal vein measures 11 mm with hepatopetal flow. Gallbladder normal without gallstones. Gallbladder wall thickness is less than 3 mm. No sonographic Knight's sign or pericholecystic fluid. Visualized portions of the intrahepatic and extrahepatic biliary tree are of normal caliber. Common duct is less than 6 mm. Spleen measures 16 cm cranicaudally and is unremarkable. Pancreas is unremarkable. Kidneys are normal in size, shape, and echotexture without masses or hydronephrosis. Right kidney measures 14.7 cm. Left kidney measures 14.4 cm. Abdominal aorta is of normal caliber. Inferior vena cava is unremarkable where visualized. IMPRESSION: 1. Hepatosplenomegaly 2. Echogenic liver suggesting steatosis or other chronic hepatocellular disease. There is no focal mass lesion 3. Mildly enlarged kidneys bilaterally without focal lesions. This may be physiologic in a tall patient. Alternatively, early stage diabetic nephropathy or infiltrative processes, such as human immunodeficiency virus or lymphoma may cause this appearance. Ihsan Andino
[2025-02-18] MEDS ORDERED: NA CHLORIDE 0.9% 250 ML ONE ×2 (16:00→18:04)
[2025-02-18 16:41] LABS: Absolute Eosinophils 0.2 K/uL (0-0.5); Absolute Lymphocytes (CBC) 1.2 K/uL (0.7-4.9); Absolute Monocytes 0.5 K/uL (0.1-1.3); Absolute Neutrophil 3.3 K/uL (1.8-8.0); Basophils % 0.5 % (0-1.3); Eosinophils % 3.4 % (0-4.4); Hematocrit 38.7 % (39.6-49.0); Hemoglobin 13.5 g/dL (13.6-17.9); MCH 32.1 pg (27.0-35.0); MCV 91.7 fL (80-100); MPV 6.4 fL (7.6-11.3); Monocytes % 9.4 % (3.3-12.3); Neutrophils % 62.7 % (41.7-73.7); Nucleated Red Blood Cells % 0.3 % (0-0); Platelets 193 thou/uL (152-406); RBC Red Blood Cell Count 4.21 M/uL (4.33-5.43); Red Cell Distribution Width 15.5 % (12.1-15.2)
[2025-02-18 17:02] LABS: Albumin 1.8 g/dL (3.4-5.0); Albumin/Globulin Ratio 0.4 (1.1-1.8); Anion Gap 7.1 mEq/L (5.0-15.0); Bilirubin Direct 0.3 mg/dL (0-0.2); Bilirubin Indirect, Calculated 0.3 mg/dL (0.2-0.8); Bilirubin Total 0.6 mg/dL (0.2-1.0); Globulin 4.7 g/dL (2.3-3.5); Magnesium 1.9 mg/dL (1.6-2.4); Potassium 4.1 mEq/L (3.5-5.1); Protein, Total 6.5 g/dL (6.4-8.2); Troponin High Sensitivity 9.4 pg/mL (<58.9)
[2025-02-18 17:07] LABS: Protime INR 1.15
[2025-02-18] MEDS ORDERED: FENTANYL CITR 100 MCG/2 ML ONE (18:02)
[2025-02-18] MEDS ORDERED: VANCOMYCIN 1 GM/VIAL ONE (18:04)
[2025-02-18] MEDS ORDERED: ONDANSETRON 4 MG/2 ML VIAL ONE (18:04)
[2025-02-18] MEDS ORDERED: CEFTRIAXONE 1000 MG/VIAL ONE (18:04)
--- NOTE | 2025-02-18 18:14 | RAD REPORT ---
EXAMINATION: ONE VIEW CHEST XR CLINICAL INDICATION: Male, 69 years old.,ABDOMINAL DISTENTION TECHNIQUE: Frontal chest projection is submitted. Examination is limited by patient positioning and t echnique. COMPARISON: 06/02/2025 FINDINGS: The lungs are grossly clear although suboptimal inspiratory effort somewhat limits evaluation. Diffus e emphysematous changes again seen. No pneumothorax or sizable effusion. The heart is normal in size. Mediastinal contours are unremarkable. IMPRESSION: No acute intrathoracic abnormalities.
[2025-02-18] MEDS ORDERED: ONDANSETRON 4 MG/2 ML VIAL IV PRN (18:36)
[2025-02-18] MEDS: ALBUMIN HUMAN 25% 200 ML IV ONE (18:36)
--- NOTE | 2025-02-18 18:38 | RAD REPORT ---
EXAMINATION: CT Abdomen Pelvis W Contrast CLINICAL INDICATION: Male, 69 years old. ABD PAIN TECHNIQUE: CT abdomen and pelvis was performed, after the administration of IV contrast[facility]. Axial, sagittal and coronal reconstructions were obtained. One or more of the following dose reduction techniques were used: Automated exposure control, adjustment of the mA and k V according to patient size, and iterative reconstruction. Unless otherwise specified, incidental findings do not require dedicated imaging follow-up. COMPARISON: 01/16/2025 FINDINGS: LOWER CHEST: Layering small to moderate right pleural effusion with underlying atelectasis, stable. LIVER: Nodular contour suggesting cirrhosis. Main portal vein opacifies normally. Tortuous portosyste jessica varicosities again seen most notably along the lower esophagus. Early recanalization of the umbilical vein suspected.. No focal lesion. BILIARY SYSTEM: No suspicious abnormalities. SPLEEN: Enlarged measuring 17.8 cm in long axis. No focal lesion. PANCREAS: No mass, ductal dilation, or shirley-pancreatic fluid. ADRENALS: Normal; no mass. KIDNEYS: Normal size and contour. No hydronephrosis. URINARY BLADDER: Unremarkable. GASTROINTESTINAL TRACT: No evidence of free air, bowel obstruction or abscess. Moderate to large vo lume free ascites again seen. Indwelling catheter within the right aspect of the peritoneal cavity, terminating in the lower quadrant. Nonspecific mild edema throughout the mesentery again seen. APPENDIX: Appendix not visualized, but no inflammatory changes in region of appendix. LYMPH NODES: No bulky retroperitoneal, bilateral iliac chain, as well as a few posterior mediastinal lymph nodes. These demonstrate mild interval increase in size, with the most sizable right upper retroperitoneal lymph node now measuring 3.7 x 2.6 cm compared to 2.6 x 3.2 cm previously, the larges t right common iliac chain lymph node now measures 3.3 x 3.0 cm compared to 3.0 x 2.6 cm, largest left external iliac chain lymph node now measures 4.3 x 3.5 cm compared to 3.9 x 2.9 cm, and largest right external iliac chain lymph node now measures 5.6 x 3.6 cm compared to 5.2 x 2.9 cm on the prior exam. Largest lower paraesophageal 2.1 x 1.4 cm lymph node appears stable. Soft tissue deposits posterior to the left kidney measuring 2.7 cm and 2.2 cm are stable. MUSCULOSKELETAL: Extensive osseous sclerotic metastases, with stable burden. ADDITIONAL FINDINGS: Bilateral inguinal hernias containing fat on the left and fluid on the right, st able. IMPRESSION: Progressive mild interval increase in size of numerous retroperitoneal and bilateral iliac chain meta static adenopathy. Stable burden of sclerotic osseous metastatic disease throughout the included skeleton. Other stable findings including moderate to large volume free ascites, sequelae of cirrhosis with por eliecer hypertension, splenomegaly, and small to moderate right pleural effusion.
--- NOTE | 2025-02-18 18:54 | ER ---
Nurse's Notes [facility] Name: Tutu Harrington Age: 69 yrs Sex: Male : 1955 Arrival Date: 02/18/2025 Time: 15:12 Bed 19 Private MD: Diagnosis: Abdominal pain, Generalized;Cellulitis, unspecified-abdominal wall;Encephalopathy, unspecified-hepatic;Alcoholic cirrhosis of liver with ascites-prostrate to liver cancer Presentation: 02/18 15:15 Chief complaint: EMS states: abdomen red and firm. Coronavirus screen: Client denies kj2 travel out of the [place] in the last 14 days. Ebola Screen: No symptoms or risks identified at this time. Initial Sepsis Screen: Does the patient meet any 2 criteria? No. Patient's initial sepsis screen is negative. Does the patient have a suspected source of infection? No. Patient's initial sepsis screen is negative. Risk Assessment: Do you want to hurt yourself or someone else? Patient reports no desire to harm self or others. Onset of symptoms was February 18, 2025. 15:15 Method Of Arrival: EMS: [facility] kj2 15:15 Acuity: JESSA 3 kj2 Triage Assessment: 15:15 General: Appears in no apparent distress. Behavior is calm, cooperative. Pain: kj2 Complains of pain in left lower quadrant and right lower quadrant and left upper quadrant and right upper quadrant Pain currently is 7 out of 10 on a pain scale. Neuro: Level of Consciousness is awake, alert, obeys commands, Oriented to person, place, time, situation. Cardiovascular: Patient's skin is warm and dry. Respiratory: Airway is patent Respiratory effort is unlabored. GI: No signs and/or symptoms were reported involving the gastrointestinal system. Abdomen is distended. : No signs and/or symptoms were reported regarding the genitourinary system. Derm: Wound noted right forearm. Musculoskeletal: Historical: - Allergies: 15:39 No Known Allergies; kj2 - Home Meds: 15:39 Albuterol Inhl [Active]; kj2 - PMHx: 15:39 Arthritis; BPH (Unknown); COPD; Diabetes - Refused Insulin; liver cancer; Prostate kj2 Cancer; - Immunization history:: Adult Immunizations unknown. - Infectious Disease History:: Denies. - Social history:: Smoking status: unknown. Screenin:15 [facility] ED Fall Risk Assessment (Adult) History of falling in the last 3 months, kj2 including since admission No falls in past 3 months (0 pts) Confusion or Disorientation No (0 pts) Intoxicated or Sedated No (0 pts) Mobility Assist Device Used. [facility] ED Fall Risk Assessment (Adult) Impaired Gait Yes (1 pt) Mobility Assist Device Used Yes (1 pt) Altered Elimination No (0 pt) Score/Fall Risk Level 3 or more points = High Risk Maintained a safe environment, Hourly rounding (assess needs \T\ fall precautionary measures) done. Abuse screen: Denies threats or abuse. Denies injuries from another. Nutritional screening: No deficits noted. Tuberculosis screening: No symptoms or risk factors identified. 20:38 [facility] ED Fall Risk Assessment (Adult) Impaired Gait. kj2 Assessment: 15:15 General: see triage assessment. kj2 15:15 GI: Bowel sounds Abd is non tender. kj2 16:15 Reassessment: Patient appears in no apparent distress at this time. Patient and/or kj2 family updated on plan of care and expected duration. Pain level reassessed. Patient is alert, oriented x 3, equal unlabored respirations, skin warm/dry/pink. 16:15 Reassessment: Patient appears in no apparent distress at this time. Patient and/or kj2 family updated on plan of care and expected duration. Pain level reassessed. Patient is alert, oriented x 3, equal unlabored respirations, skin warm/dry/pink. 17:15 Reassessment: Patient appears in no apparent distress at this time. Patient and/or kj2 family updated on plan of care and expected duration. Pain level reassessed. Patient is alert, oriented x 3, equal unlabored respirations, skin warm/dry/pink. 18:15 Reassessment: Patient appears in no apparent distress at this time. Patient and/or kj2 family updated on plan of care and expected duration. Pain level reassessed. Patient is alert, oriented x 3, equal unlabored respirations, skin warm/dry/pink. 19:35 Reassessment: Patient appears in no apparent distress at this time. Patient and/or kj2 family updated on plan of care and expected duration. Pain level reassessed. Patient is alert, oriented x 3, equal unlabored respirations, skin warm/dry/pink. 20:37 Reassessment: Patient appears in no apparent distress at this time. Patient and/or kj2 family updated on plan of care and expected duration. Pain level reassessed. Patient is alert, oriented x 3, equal unlabored respirations, skin warm/dry/pink. Vital Signs: 15:15 BP 109 / 53; Pulse 101; Resp 20; Temp 98.4; Pulse Ox 97% on R/A; Weight 90.72 kg; kj2 Height 5 ft. 10 in. ; 16:15 BP 110 / 56; Pulse 104; Resp 20; Pulse Ox 98% on R/A; kj2 18:15 BP 109 / 71; Pulse 100; Resp 18; Pulse Ox 100% ; kj2 19:35 BP 100 / 54; Pulse 90; Resp 18; Temp 98; Pulse Ox 100% ; kj2 20:38 BP 102 / 58; Pulse 94; Resp 20; Pulse Ox 100% ; kj2 15:15 Body Mass Index 28.70 (90.72 kg, 177.8 cm) kj2 John Coma Score: 18:43 Eye Response: spontaneous(4). Motor Response: obeys commands(6). Verbal Response: estephania oriented(5). Total: 15. ED Course: 15:15 Patient has correct armband on for positive identification. Bed in low position. Call kj2 light in reach. Provided Education on: call light. 15:15 Arm band placed on Patient placed. kj2 15:36 Patient arrived in ED. kj2 15:36 Padmaja Salter RN is Primary Nurse. kj2 15:39 Triage completed. kj2 15:41 Jayme Tamayo MD is Attending Physician. estephnaia 16:15 Inserted EJ by on left side. kj2 16:15 Assisted provider with: EJ placement supplies. kj2 17:32 XRAY Chest (1 view) In Process Unspecified. EDMS 17:37 CT Abd/Pelvis - IV Contrast Only In Process Unspecified. EDMS 18:51 Ivan Aguayo MD is Hospitalizing Provider. estephania 20:44 Patient admitted, IV remains in place. kj2 Administered Medications: 17:14 Drug: NS 0.9% IV 250 ml IV at 75 ml/hr once; to be given as a bolus over 30 minutes kj2 Route: IV; Rate: 75 ml/hr; Site: Other; 19:24 Follow up: IV Status: Completed infusion; IV Intake: 250ml kj2 18:28 Drug: fentaNYL (PF) IVP 25 mcg IVP once Route: IVP; Site: Other; kj2 19:24 Follow up: Response: No adverse reaction kj2 18:28 Drug: Ondansetron IVP 4 mg IVP once; over 2 minutes Route: IVP; Site: Other; kj2 19:24 Follow up: Response: No adverse reaction kj2 18:29 Drug: Rocephin IV 1 grams IV at per protocol once; Given slow IV push per pharmacy kj2 instructions Route: IV; Rate: per protocol; Site: Other; 18:29 Drug: vancoMYCIN IVPB 1 grams IVPB once over 2 hrs Route: IVPB; Infused Over: 2 hrs; kj2 Site: Other; 19:25 Drug: Albumin IVPB 25 grams 100 ml IVPB once; (Note: Albumin 25% concentration) Volume: kj2 100 ml; Route: IVPB; Site: Other; 20:45 Follow up: IV Status: Completed infusion; IV Intake: 100ml kj2 19:55 Drug: Lactulose PO 30 grams 45 ml PO once Volume: 45 ml; Route: PO; kj2 19:58 Follow up: Response: No adverse reaction kj2 Medication: 15:15 VIS not applicable for this client. kj2 Intake: 19:24 IV: 250ml; Total: 250ml. kj2 20:45 IV: 100ml; Total: 350ml. kj2 Outcome: 18:53 Decision to Hospitalize by Provider. estephania 20:43 Admitted to kj2 20:43 Condition: stable 20:43 Instructed on the need for admit, 20:45 Patient left the ED. kj2 Signatures: Dispatcher [employer] Jayme Rodriguez MD MD cha Jordan, Krystal, RN RN kj2
--- NOTE | 2025-02-18 18:54 | EDPHYS ---
Physician Documentation [facility] Name: Tutu Harrington Age: 69 yrs Sex: Male : 1955 Arrival Date: 02/18/2025 Time: 15:12 Bed 19 Private MD: ED Physician Jayme Tamayo HPI: 02/18 17:26 This 69 yrs old Male presents to ER via EMS with complaints of Abdominal estephania Problem. Historical: - Allergies: 15:39 No Known Allergies; kj2 - Home Meds: 15:39 Albuterol Inhl [Active]; kj2 - PMHx: 15:39 Arthritis; BPH (Unknown); COPD; Diabetes - Refused Insulin; liver cancer; Prostate kj2 Cancer; - Immunization history:: Adult Immunizations unknown. - Infectious Disease History:: Denies. - Social history:: Smoking status: unknown. ROS: 18:43 Constitutional: Negative for fever, chills, and weight loss, Eyes: Negative for injury, estephania pain, redness, and discharge, ENT: Negative for injury, pain, and discharge, Neck: Negative for injury, pain, and swelling, Cardiovascular: Negative for chest pain, palpitations, and edema, Respiratory: Negative for shortness of breath, cough, wheezing, and pleuritic chest pain, Back: Negative for injury and pain, : Negative for injury, bleeding, discharge, and swelling, MS/Extremity: Negative for injury and deformity, Neuro: Negative for headache, weakness, numbness, tingling, and seizure, Psych: Negative for depression, anxiety, suicide ideation, homicidal ideation, and hallucinations, Allergy/Immunology: Negative for hives, rash, and allergies, Endocrine: Negative for neck swelling, polydipsia, polyuria, polyphagia, and marked weight changes, Hematologic/Lymphatic: Negative for swollen nodes, abnormal bleeding, and unusual bruising, 18:43 Abdomen/GI: Positive for abdominal pain, abdominal distension, of the right upper quadrant, left upper quadrant, right lower quadrant and left lower quadrant, cellulitis right abdominal wall, edema dependently, dw shine galvan and [place], 18:43 Skin: Positive for jaundice, cellulitis, right side abdominal wall, Exam: 18:43 Constitutional: This is a well developed, well nourished patient who is awake, alert, estephania and in no acute distress. Head/Face: Normocephalic, atraumatic. Eyes: Pupils equal round and reactive to light, extra-ocular motions intact. Lids and lashes normal. Conjunctiva and sclera are non-icteric and not injected. Cornea within normal limits. Periorbital areas with no swelling, redness, or edema. ENT: Nares patent. No nasal discharge, no septal abnormalities noted. Tympanic membranes are normal and external auditory canals are clear. Oropharynx with no redness, swelling, or masses, exudates, or evidence of obstruction, uvula midline. Mucous membranes moist. Neck: Trachea midline, no thyromegaly or masses palpated, and no cervical lymphadenopathy. Supple, full range of motion without nuchal rigidity, or vertebral point tenderness. No Meningismus. Chest/axilla: Normal chest wall appearance and motion. Nontender with no deformity. No lesions are appreciated. Cardiovascular: Regular rate and rhythm with a normal S1 and S2. No gallops, murmurs, or rubs. Normal PMI, no JVD. No pulse deficits. Respiratory: Lungs have equal breath sounds bilaterally, clear to auscultation and percussion. No rales, rhonchi or wheezes noted. No increased work of breathing, no retractions or nasal flaring. Back: No spinal tenderness. No costovertebral tenderness. Full range of motion. Male : Normal genitalia with no discharge or lesions. MS/ Extremity: Pulses equal, no cyanosis. Neurovascular intact. Full, normal range of motion., bilateral aka Neuro: Awake and alert, GCS 15, oriented to person, place, time, and situation. Cranial nerves II-XII grossly intact. Motor strength 5/5 in all extremities. Sensory grossly intact. Cerebellar exam normal. Normal gait. Psych: Awake, alert, with orientation to person, place and time. Behavior, mood, and affect are within normal limits. 18:43 ECG was reviewed by the Attending Physician. 18:43 Respiratory: the patient does not display signs of respiratory distress, Respirations: normal, Breath sounds: are clear throughout, rhonchi, that are mild, are scattered, 18:43 Abdomen/GI: Inspection: distension, that is moderate, in the right upper quadrant, left upper quadrant, right lower quadrant and left lower quadrant, Bowel sounds: active, Palpation: moderate abdominal tenderness, in all quadrants, Liver: no appreciated palpable abnormalities, Hernia: not appreciated, right abdominal wall cellulitis, 18:43 Musculoskeletal/extremity: ROM: intact in all extremities, full active range of motion, full passive range of motion, in all extremities, Circulation is intact in all extremities. Sensation intact. Compartment Syndrome exam of affected extremity: is normal. Weight bearing: is unable to bear weight, DVT Exam: no pain, no swelling, no tenderness, negative Homans' sign noted on exam, no appreciated bluish discoloration, no erythema, no increased warmth, 18:54 ECG was reviewed by the Attending Physician. [facility] Vital Signs: 15:15 BP 109 / 53; Pulse 101; Resp 20; Temp 98.4; Pulse Ox 97% on R/A; Weight 90.72 kg; kj2 Height 5 ft. 10 in. ; 16:15 BP 110 / 56; Pulse 104; Resp 20; Pulse Ox 98% on R/A; kj2 18:15 BP 109 / 71; Pulse 100; Resp 18; Pulse Ox 100% ; kj2 19:35 BP 100 / 54; Pulse 90; Resp 18; Temp 98; Pulse Ox 100% ; kj2 20:38 BP 102 / 58; Pulse 94; Resp 20; Pulse Ox 100% ; kj2 15:15 Body Mass Index 28.70 (90.72 kg, 177.8 cm) kj2 [place] Coma Score: 18:43 Eye Response: spontaneous(4). Motor Response: obeys commands(6). Verbal Response: estephanai oriented(5). Total: 15. Procedures: 16:52 Peripheral line: by aseptic technique a peripheral line was placed in the left external [facility] jugular vein. MDM: 15:41 Medical Screening Exam initiated estephania 18:48 Differential diagnosis: bowel obstruction, diverticulitis, gastritis, gastroesophageal estephania reflux disease, Hepatitis, Mesenteric ischemia or infarction, non-specific abd pain, pancreatitis, Peptic Ulcer Disease, Perf. Duodenal Ulcer, Perf. Gastric Ulcer, Peritonitis, Prostatitis, Pyelonephritis, Ureterolithiasis, urinary tract infection. Data reviewed: vital signs, nurses notes, lab test result(s), EKG, radiologic studies, CT scan, plain films. Consideration of Admission/Observation Patient was admitted/placed on observation. Escalation of care including admission/observation considered. I considered the following discharge prescriptions or medication management in the emergency department Medications were administered in the Emergency Department. See MAR. Independent interpretation of the following test(s) in the Emergency Department EKG: See my EKG interpretation above. Test considered but Not performed: Ultrasound no abd usg. Historians other than the Patient: EMS: ems well informed. pt well informed. Care significantly affected by the following chronic conditions: Diabetes, Chronic Obstructive Pulmonary Disease, Cancer, Liver Disease, oa, arthritis, liver and prostrate cancer. Counseling: I had a detailed discussion with the patient and/or guardian regarding the historical points, exam findings, and any diagnostic results supporting the discharge/admit diagnosis, lab results, radiology results, the need for further work-up and treatment in the hospital. 02/18 15:42 Order name: Basic Metabolic Panel; Complete Time: 17:19 [facility] 02/18 15:42 Order name: CBC with Diff; Complete Time: 17:19 [facility] 02/18 15:42 Order name: LFT's; Complete Time: 17:19 [facility] 02/18 15:42 Order name: Magnesium; Complete Time: 17:19 [facility] 02/18 15:42 Order name: NT PRO-BNP; Complete Time: 17:19 [facility] 02/18 15:42 Order name: PT-INR; Complete Time: 17:19 [facility] 02/18 15:42 Order name: Troponin HS; Complete Time: 17:19 [facility] 02/18 15:42 Order name: Blood Culture Adult (2) [facility] 02/18 15:42 Order name: Lactate w/ 2H reflex if indic.; Complete Time: 18:42 [facility] 02/18 15:42 Order name: Lipase; Complete Time: 17:19 [facility] 02/18 15:42 Order name: UA Rfx Sawyer Cult if indicated [facility] 02/18 15:42 Order name: AMMONIA; Complete Time: 18:42 [facility] 02/18 17:32 Order name: ALBUMIN, PLEURAL FLUID [facility] 02/18 17:32 Order name: Body Fluid Cell Count [facility] 02/18 17:32 Order name: GLUCOSE, PERITONEAL FLUID [facility] 02/18 17:32 Order name: LD, PERITONEAL FLUID [facility] 02/18 17:32 Order name: TOTAL PROTEIN,PERITONEAL FLUID [facility] 02/18 17:32 Order name: Body Fluid Culture [facility] 02/18 17:32 Order name: Gram Stain [facility] 02/18 17:52 Order name: TRIGLYCERIDE, PLEURAL FLUID [facility] 02/18 18:42 Order name: CBC with Automated Diff [facility] 02/18 18:42 Order name: CBC with Automated Diff [facility] 02/18 18:42 Order name: Comprehensive Metabolic Panel [facility] 02/18 18:42 Order name: Comprehensive Metabolic Panel [facility] 02/18 18:42 Order name: Protime (+INR) [facility] 02/18 18:42 Order name: Protime (+INR) [facility] 02/18 18:42 Order name: PTT, Activated Partial Thromb [facility] 02/18 18:42 Order name: PTT, Activated Partial Thromb [facility] 02/18 15:42 Order name: XRAY Chest (1 view); Complete Time: 18:42 [facility] 02/18 15:42 Order name: CT Abd/Pelvis - IV Contrast Only; Complete Time: 18:42 [facility] 02/18 15:42 Order name: EKG; Complete Time: 15:43 [facility] 02/18 15:42 Order name: Cardiac monitoring [facility] 02/18 15:42 Order name: EKG - Nurse/Tech; Complete Time: 17:14 [facility] 02/18 15:42 Order name: IV Saline Lock; Complete Time: 17:14 [facility] 02/18 15:42 Order name: Labs collected and sent; Complete Time: 17:14 [facility] 02/18 15:42 Order name: O2 Per Protocol; Complete Time: 17:15 [facility] 02/18 15:42 Order name: O2 Sat Monitoring; Complete Time: 17:15 [facility] 02/18 17:24 Order name: Misc. Order: pleurex vacu x5; Complete Time: 18:29 estephania EC:54 Rate is 97 beats/min. Rhythm is regular. QRS [place] is Normal. MN interval is normal. QRS estephania interval is normal. QT interval is normal. No Q waves. T waves are Normal. No ST changes noted. Clinical impression: NSR w/ Non-specific ST/T Changes and No evidence of ischemia. Interpreted by me. Reviewed by me. Administered Medications: 17:14 Drug: NS 0.9% IV 250 ml IV at 75 ml/hr once; to be given as a bolus over 30 minutes kj2 Route: IV; Rate: 75 ml/hr; Site: Other; 19:24 Follow up: IV Status: Completed infusion; IV Intake: 250ml kj2 18:28 Drug: fentaNYL (PF) IVP 25 mcg IVP once Route: IVP; Site: Other; kj2 19:24 Follow up: Response: No adverse reaction kj2 18:28 Drug: Ondansetron IVP 4 mg IVP once; over 2 minutes Route: IVP; Site: Other; kj2 19:24 Follow up: Response: No adverse reaction kj2 18:29 Drug: Rocephin IV 1 grams IV at per protocol once; Given slow IV push per pharmacy kj2 instructions Route: IV; Rate: per protocol; Site: Other; 18:29 Drug: vancoMYCIN IVPB 1 grams IVPB once over 2 hrs Route: IVPB; Infused Over: 2 hrs; kj2 Site: Other; 19:25 Drug: Albumin IVPB 25 grams 100 ml IVPB once; (Note: Albumin 25% concentration) Volume: kj2 100 ml; Route: IVPB; Site: Other; 20:45 Follow up: IV Status: Completed infusion; IV Intake: 100ml kj2 19:55 Drug: Lactulose PO 30 grams 45 ml PO once Volume: 45 ml; Route: PO; kj2 19:58 Follow up: Response: No adverse reaction kj2 Disposition Summary: 02/18/25 18:53 Hospitalization Ordered Notes: Hospitalization Status: Inpatient Admission estephania Provider: Ivan Galvan cha Location: Telemetry/MedSurg (Inpatient) estephania Condition: Fair estephania Problem: new estephania Symptoms: are unchanged estephania Bed/Room Type: Standard [facility] Room Assignment: 401(02/18/25 19:04) estephania Diagnosis - Abdominal pain, Generalized estephania - Cellulitis, unspecified - abdominal wall estephania - Encephalopathy, unspecified - hepatic estephania - Alcoholic cirrhosis of liver with ascites - prostrate to liver cancer estephania Forms: - Medication Reconciliation Form estephania - SBAR form estephania - Leadership Thank You Letter estephania Signatures: Dispatcher [employer] EDJayme Elam MD MD cha Jordan, Krystal, RN RN kj2 Corrections: (The following items were deleted from the chart) 15:43 15:43 BASIC METABOLIC PANEL+C.LAB.BRZ ordered. EDMS EDMS 15:43 15:43 CBC+H.LAB.BRZ ordered. EDMS EDMS 15:43 15:43 HEPATIC FUNCTION+C.LAB.BRZ ordered. EDMS EDMS 15:43 15:43 MAGNESIUM+C.LAB.BRZ ordered. EDMS EDMS 15:43 15:43 PROBNP+C.LAB.BRZ ordered. EDMS EDMS 15:43 15:43 PROTIME (+INR)+COAG.LAB.BRZ ordered. EDMS EDMS 15:43 15:43 Troponin High Sensitivity+C.LAB.BRZ ordered. EDMS EDMS 15:43 15:43 BLOOD CULTURE*+BA.LAB.BRZ ordered. EDMS EDMS 15:43 15:43 LACTATE+C.LAB.BRZ ordered. EDMS EDMS 15:43 15:43 LIPASE+C.LAB.BRZ ordered. EDMS EDMS 15:43 15:43 UA Rfx Sawyer Cult if indicated+U.LAB.BRZ ordered. EDMS EDMS 15:43 15:43 AMMONIA+C.LAB.BRZ ordered. EDMS EDMS 19:04 18:53 estephania estephania
[2025-02-18] MEDS ORDERED: ALBUMIN HUMAN 25% 100 ML IV ONE (19:10)
[2025-02-18] MEDS ORDERED: LACTULOSE 20 GM/30 ML UCUP ONE (19:10)
[2025-02-18 19:40] LABS: Body Fluid Lymphocytes 73 %
[2025-02-18 19:41] LABS: Body Fluid WBC 60 /mm^3
[2025-02-18 19:42] LABS: Fluid Total Cells Count 100; Tube # SINGLE
[2025-02-18 19:46] LABS: Appearance TURBID (CLEAR); Body Fluid Source PERITONEAL; Color of fluid Yellow (COLORLESS)
[2025-02-18] MEDS: Rifaximin 550 MG Tab PO SCH (21:00)
--- NOTE | 2025-02-18 21:38 | P.HP ---
Certification for Inpatient Patient admitted to: Inpatient With expected LOS: >2 Midnights Practitioner: I am a practitioner with admitting privileges, knowledge of patient current condition, hospital course, and medical plan of care. Services: Services provided to patient in accordance with Admission requirements found in Title 42 Section 412.3 of the Code of Federal Regulations Patient History Date of Service: 02/19/25 Reason for admission: Hospice History of Present Illness: 69 yrs old Male with past medical history of arthritis, BPH, COPD, diabetes, liver cancer, prostate cancer who was admitted for hospice. Patient was recently been discharged to hospice. Patient has significant ascites and brought to ER for paracentesis. He underwent paracentesis in the ER and was admitted for further management. No fever or chills. No nausea vomiting or diarrhea. Complains of generalized weakness. Allergies No Known Allergies Allergy (Unverified 04/07/24 17:31) Home medications list reviewed: Yes Home Medications: Ciprofloxacin HCl [Cipro 500 MG Tablet] 500 mg PO DAILY #30 tab 02/16/25 Furosemide [Lasix*] 40 mg PO DAILY #30 tab 02/16/25 Hydrocodone 5/APAP 325 [[place] 5/325] 1 tab PO TID PRN #15 tab 02/16/25 Spironolactone [Aldactone*] 25 mg PO BID #30 tab 02/16/25 - Past Medical/Surgical History Diabetic: Yes Past Medical History: Reviewed- Non-Contributory -: DM -: COPD -: Arthritis -: BPH -: Prostate cancer -: Liver cancer Past Surgical History: Reviewed- Non-Contributory -: Denies Psychosocial/ Personal History: Lives with his Son. Heavy smoker. Past EtOH. Incontinent of urine. - Family History Mother -: Other (see notes) Notes: Thyroid problems - Social History Smoking Status: Never smoker Alcohol use: No CD- Drugs: No Caffeine use: Yes Review of Systems 10-point ROS is otherwise unremarkable Physical Examination - Vital Signs Temperature: 98.2 F Blood Pressure: 96/61 Pulse: 97 Respirations: 16 Pulse Ox (%): 95 - Physical Exam General: Alert, In no apparent distress, Cooperative HEENT: Atraumatic, Normocephalic Neck: Supple Respiratory: Clear to auscultation bilaterally Cardiovascular: Regular rate/rhythm, Normal S1 S2 Capillary refill: <2 Seconds Gastrointestinal: W/out hepatosplenomegaly, Distended Musculoskeletal: No clubbing Integumentary: No rashes Neurological: Other (Alert, Awake ) Lymphatics: No axilla or inguinal lymphadenopathy - Studies Laboratory Data (last 24 hrs) 02/18/25 02/18/25 02/18/25 16:26 16:26 16:26 WBC 5.20 Hgb 13.5 L Hct 38.7 L Plt Count 193 PT 13.0 INR 1.15 Sodium 137 Potassium 4.1 BUN 24 H Creatinine 0.80 Glucose 120 H Magnesium 1.9 Total Bilirubin 0.6 AST 33 ALT 23 Alkaline Phosphatase 182 H Lipase 19 Assessment and Plan - Plan Ascites Status post paracentesis No fluid studies for possible spontaneous bacterial peritonitis Will monitor closely Hospice Pain Control Supportive management GI/DVT prophylaxis Advanced directive DNR Discharge Plan: [facility] Plan to discharge in: 48 Hours - Advance Directives Does patient have a Living Will: No Does patient have a Durable POA for Healthcare: No - Code Status/Comfort Care Code Status: Full Code Time Spent Managing Pts Care (In Minutes): 48
[2025-02-18] MEDS: FENTANYL CITR 100 MCG/2 ML IV PRN (21:56)
[2025-02-18] MEDS: ONDANSETRON 4 MG/2 ML VIAL IV PRN (22:11)
[2025-02-18] MEDS: LORAZEPAM 0.5 MG TABLET PO PRN (22:12)
[2025-02-18 23:31] VITALS: BMI 28.7
[2025-02-19] MEDS: PIPER TAZO 3.375 GM in NA CHLORIDE 0.9% 100 ML IV SCH (01:00)
--- NOTE | 2025-02-19 05:13 | P.PN ---
Date of Service: 02/18/25 Patient is a 69-year-old gentleman who came to the hospital with significant ascites. According to the patient he has not had a paracentesis since he has been at the nursing facility. We removed 5-1/2 L of peritoneal fluid from patient's abdomen. Labs have been sent off to rule out spontaneous bacterial peritonitis. Patient will be admitted for hospice care.
[2025-02-19] MEDS: ONDANSETRON 4 MG/2 ML VIAL IV ONE (13:56)
[2025-02-19] MEDS: FENTANYL CITR 100 MCG/2 ML IV ONE (13:56)
[2025-02-19 21:26] VITALS: O2SAT 97
[2025-02-20 06:12] LABS: Absolute Eosinophils 0.2 K/uL (0-0.5); Absolute Lymphocytes (CBC) 1.1 K/uL (0.7-4.9); Absolute Monocytes 0.5 K/uL (0.1-1.3); Absolute Neutrophil 2.8 K/uL (1.8-8.0); Basophils % 0.6 % (0-1.3); Hematocrit 37.6 % (39.6-49.0); Lymphocytes % 24.2 % (15.3-44.8); MCHC 34.6 g/dL (32.0-36.0); MCV 92.5 fL (80-100); MPV 6.4 fL (7.6-11.3); Neutrophils % 60.2 % (41.7-73.7); Nucleated Red Blood Cells % 0.1 % (0-0); Platelets 204 thou/uL (152-406); RBC Red Blood Cell Count 4.07 M/uL (4.33-5.43); Red Cell Distribution Width 15.7 % (12.1-15.2)
[2025-02-20 06:25] LABS: Albumin 1.9 g/dL (3.4-5.0); Albumin/Globulin Ratio 0.5 (1.1-1.8); Anion Gap 7.2 mEq/L (5.0-15.0); Bilirubin Total 0.5 mg/dL (0.2-1.0); Globulin 4.1 g/dL (2.3-3.5); PTT, Activated Partial Thromb 27.3 SECONDS (27.2-37.4); Potassium 4.2 mEq/L (3.5-5.1); Protime INR 1.06
--- NOTE | 2025-02-20 12:08 | EKG ---
Test Date: 2025-02-18 Test Time: 18:46:28 Hand Sample Maker: YVETTE MEASUREMENT RESULTS: Intervals: Rate: 97 IA: QRSD: 142 QT: 404 QTc: 513 [place]: P: 66 IA: QRS: 78 T: 29 INTERPRETIVE STATEMENTS: Poor data quality, interpretation may be adversely affected Sinus rhythm with AV dissociation and Wide QRS rhythm Right bundle branch block Abnormal ECG Compared to ECG 12/31/2024 23:34:48 Uncertain supraventricular rhythm now present AV dissociation now present Sinus tachycardia no longer present Electronically Signed On 02-20-25 12:06:23 CDT by Aries Singh
[2025-02-20 12:09] VITALS: BP 95/53; TEMP 98.8
[2025-02-22 19:25] LABS: GLUCOSE, PERITONEAL FLUID 146 mg/dL; LD, PERITONEAL FLUID 19 U/L (<63); TOTAL PROTEIN,PERITONEAL FLUID <3.0 g/dL
--- NOTE | 2025-02-23 11:56 | EKG ---
Test Date: 2025-02-18 Test Time: 18:50:15 Voucher Examiner: YVETTE MEASUREMENT RESULTS: Intervals: Rate: 97 IA: 152 QRSD: 140 QT: 394 QTc: 500 [place]: P: 63 IA: 152 QRS: 76 T: 30 INTERPRETIVE STATEMENTS: Normal sinus rhythm Right bundle branch block Abnormal ECG Compared to ECG 02/18/2025 18:46:28 Uncertain supraventricular rhythm no longer present AV dissociation no longer present Electronically Signed On 02-23-25 11:48:39 CDT by Aries Singh
== END 2025-02-20 17:05 | DRG 433 ==
LOC: ER 15:12 → ERHOLD 18:36 → 4TH 20:07
PROVIDERS: ADMIT Hospitalist; ATTEND Hospitalist
PROC: 0W9G3ZZ Drainage of Peritoneal Cavity, Percutaneous Approach (ICD-10-PCS; principal; 2025-02-18)
DX: K70.31 Alcoholic cirrhosis of liver with ascites (principal); C78.7 Secondary malignant neoplasm of liver and intrahepatic bile duct; L03.311 Cellulitis of abdominal wall; K76.82 Hepatic encephalopathy; E11.9 Type 2 diabetes mellitus without complications; M19.90 Unspecified osteoarthritis, unspecified site; J44.9 Chronic obstructive pulmonary disease, unspecified; N40.0 Benign prostatic hyperplasia without lower urinary tract symptoms; Z66 Do not resuscitate; Z85.46 Personal history of malignant neoplasm of prostate; Z79.899 Other long term (current) drug therapy
CPT/HCPCS: 36415; 71045; 74177; 80048; 80053; 80076; 82042; 82140; 82945; 83605; 83615; 83690; 83735; 83880; 84157; 84484; 85025; 85610; 85730; 87040; 87070; 89050; 93005; 96365; 96366; 96367; 96375; 99285; J0696; J2405; J2543; J3010; J3370; J7050; P9047; Q9967

== ENCOUNTER 2025-03-13 15:24 | Emergency (ER) | payer OTHER ==
--- OUTSIDE RECORDS SUMMARY | 2025-03-13 15:34 | XMS REPORT | Continuity of Care Document ---
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 Role Phone LOVELL, ABEL XIE Primary Care Physician Unavailable Jaquan Acevedo Attending Clinician Unavailable Derick Gavin Attending Clinician Unavailable Luisa Vincent Attending Clinician Unavailable Phil KENT, Kellie Attending Clinician Unavailable Aretha Griffin MD Attending Clinician [phone] Vince WILLIAMSON, Ebenezer Attending Clinician [phone] Valdez WILLIAMSON, Elizabeth Garcia Attending Cl inician Services, [facility] Attending Clinician Unav ailable Stephen_Jose Raul Attending Clinician Unavailable GAYLORD_S Attending Clinician Unavailable Luisa Vincent Admitting Clinician Unavailable UNDEFINED Admitting Clinician Unavailable Valdez WILLIAMSON, Elizabeth Garcia Admitting Cl inician Stephen_T Admitting Clinician Unavailable ISADORA_S Admitting Clinician Unavailable Payers Payer Name Policy Type Policy Number Effective Date Expiration Date Source [employer] (MEDICARE REPLACEMENT HMO) [id number] 2021 00:00:00 [employer] Mohsen [id number] 2021 00:00:00 [facility] Problems Condition Name Condition Details Condition Category Status Onset Date Resolution Date Last Treatment Date Treating Clinician Comments Source Hypercoagu lability state Hypercoagu lability State Problem Active 02-21 00:00: 00 [facility] Chronic alcoholism in remission Chronic Alcoholism in Remission Problem Active 02-21 00:00: 00 [facility] Pain from metastases Pain from Metastases Problem Active 02-21 00:00: 00 [facility] Obesity caused by energy imbalance Obesity Caused by Energy Imbalance Problem Active 02-21 00:00: 00 [facility] Tobacco dependence caused by cigarettes Tobacco Dependence Caused by Cigarettes Problem Active 02-21 00:00: 00 [facility] Malignant neoplasm of prostate Malignant Neoplasm of Prostate Problem Active 02-21 00:00: 00 [facility] Senile purpura Senile Purpura Problem Active 02-21 00:00: 00 [facility] Metastatic malignant neoplasm to liver Metastatic Malignant Neoplasm to Liver Problem Active 02-17 00:00: 00 [facility] Simple obesity Simple obesity Disease [facility] 2023-10 00:00: 00 Italo Morrow Acute hepatitis C virus infection without hepatic coma Acute hepatitis C virus infection without hepatic coma Disease Active 2023-10 00:00: 00 Italo Morrow Diabetes mellitus Diabetes mellitus Disease [facility] 2023-10 00:00: 00 Italo Morrow Other cirrhosis of liver Other cirrhosis of liver Disease Active 2023-10 00:00: 00 Italo Morrow 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) Disease Active 2023-10 00:00: 00 Italo Morrow Metastatic cancer Metastatic cancer Disease Active 2023-10 00:00: 00 Memoria l S[facility] Epic Right ventricula r dilation Right ventricula r dilation Disease Active 2023-10 016 00:00: 00 Italo Andino Epic CHROIC HEPATITIS C VIRUS, JOINT PAIN, LO CHROIC HEPATITIS C VIRUS, JOINT PAIN, LO Active 10/07/2012 [facility] Diagnosis Active 2011-10 00:00: 00 2012-10-26 09:38:00 Italo Andino 724.2 - LUMBAGO 724.2 - LUMBAGO Active 05/26/2012 [facility] Active 05-26 00:01: 00 2012-05-26 11:48:00 Italo Andino Hypertensi ve heart disease Hypertensi ve Heart Disease Problem Active [facility] Mild chronic obstructiv e pulmonary disease Mild Chronic Obstructiv e Pulmonary Disease Problem Active [facility] Alcoholic cirrhosis Alcoholic Cirrhosis Problem Active [facility] Generalize d osteoarthr itis Generalize d Osteoarthr itis Problem Active [facility] Type 2 diabetes mellitus with peripheral angiopathy Type 2 Diabetes Mellitus with Peripheral Angiopathy Problem Active [facility] Metastatic malignant neoplasm to bone Metastatic Malignant Neoplasm to Bone Problem Active [facility] Dyslipidem ia Dyslipidem ia Problem Active [facility] [id number] Type 2 diabetes mellitus with hyperglyce renu, without long-term current use of insulin Problem [facility] Secondary immune deficiency disorder Secondary Immune Deficiency Disorder Problem Active [facility] [id number] Osteoarthr itis of multiple joints, unspecifie d osteoarthr itis type Problem [facility] [id number] Chronic obstructiv e pulmonary disease, unspecifie d COPD type Problem [facility] [id number] Penile abnormalit y Problem [facility] [id number] Current moderate episode of major depressive disorder without prior episode Problem [facility] [id number] Chronic hepatitis C without hepatic coma Problem [facility] [id number] ASA (generaliz ed anxiety disorder) Problem [facility] [id number] Tobacco use disorder Problem [facility] [id number] Mixed hyperlipid emia Problem [facility] [id number] Essential (primary) hypertensi on Problem [facility] Arthritis Arthritis Resolved Problem 10/30/2012 [facility] Problem Resolve d 2012-10-30 09:26:41 Italo Andino Insomnia Insomnia Resolved Problem 10/30/2012 [facility] Problem Resolve d 2012-10-30 09:26:41 Italo Andino Asbestos fibers Asbestos fibers Active Problem 10/30/2012 [facility] Problem Active 2012-10-30 09:26:41 Italo Andino Hepatitis C Hepatitis C Active Problem 10/30/2012 [facility] Problem Active 2012-10-30 09:26:41 Italo Andino Pain Pain Active Problem 10/30/2012 [facility] Problem Active 2012-10-30 09:26:41 Italo Andino HEPATITIS NOS HEPATITIS NOS Active [facility] Diagnosis Active 2012-10-26 09:38:00 Italo Andino Altered mental status, unspecifie d altered mental status type Altered mental status, unspecifie d altered mental status type Disease Resolve d 2023-10 0 00:00: 00 2024-08-11 00:00:00 2024-08-11 09:42:19 Italo Morrow Suprapubic catheter dysfunctio n (CMS/HCC) Suprapubic catheter dysfunctio n (CMS/HCC) Disease Resolve d 2023-10 020 00:00: 00 2024-08-11 00:00:00 2024-08-11 09:42:18 Italo Morrow Metabolic encephalop athy Metabolic encephalop athy Disease Resolve d 2023-10 0-16 00:00: 00 2024-08-11 00:00:00 2024-08-11 09:41:47 Italo Andino Epic Aspiration pneumonia (CMS/HCC) Aspiration pneumonia (CMS/HCC) Disease Resolve d 2023-10 016 00:00: 00 2024-08-11 00:00:00 2024-08-11 09:41:49 Italo Morrow Pleural effusion, right Pleural effusion, right Disease Resolve d 2023-10 0-16 00:00: 00 2024-08-11 00:00:00 2024-08-11 09:42:09 Italo Morrow Urinary retention Urinary retention Disease Resolve d 2023-10 016 00:00: 00 2024-08-11 00:00:00 2024-08-11 09:42:17 Italo Morrow Acute hypoxemic respirator y failure Acute hypoxemic respirator y failure Disease Resolve d 2023-10 0-16 00:00: 00 2024-08-05 00:00:00 2024-08-05 20:37:17 Italo Morrow Shock (CMS/HCC) Shock (CMS/HCC) Disease Resolve d 2023-10 0-16 00:00: 00 2024-08-05 00:00:00 2024-08-05 20:40:08 Italo Morrow Severe sepsis with septic shock (CODE) Severe sepsis with septic shock (CODE) Disease Resolve d 2023-10 016 00:00: 00 2024-08-05 00:00:00 2024-08-05 20:49:24 Italo Morrow AMS (altered mental status) AMS (altered mental status) Disease Resolve d 2023-10 0-15 00:00: 00 2024-08-05 00:00:00 2024-08-05 20:26:11 Italo Morrow Allergies, Adverse Reactions, Alerts Allergy Name Allergy Type Status Severity Reaction(s) Onset Date Inactive Date Treating Clinician Comments Source No Known Allergie s DA Active U 2023-1014 00:00: 00 [facility] NKFA NKFA Active Italo Andino Social History Social Habit Start Date Stop Date Quantity Comments Source History of Tobacco Use Current Smoker [facility] Sex Assigned At [facility] Gender identity Arnaldo riarod Morrow Sexual orientation [facility] History of Social function 2024-08-05 00:00:00 2024-08-05 00:00:00 [facility] Smoking Status Start Date Stop Date Source Heavy Tobacco Smoker [facility] Tobacco smoking consumption unknown [facility] Current Smoker 2021-09-07 00:00:00 [facility] Medications Ordered Medication Name Filled Medication Name [...] 2 g 2023-10 13:00: 00 Yes 2g [id number] 3D 2 g, Topical, 3 times daily, First dose on Thu08/07/24 at 1300, Apply to painful area(s). R shoulder Italo Morrow acetaminoph en (Tylenol) tablet 650 mg acetaminoph en (Tylenol) tablet 650 mg 2023-10 06:13: 07 Yes 650mg Q6H 650 mg, Oral, Every 6 hours PRN, mild pain (1-3), Starting on Thu08/06/24 at 0613, Max acetaminop hen = 4000mg/day (4gm/day) Italo Andino Epic Refresh P.M. (mineral oil-white petrolatum) ophthalmic ointment [...] (Select all that apply): Pneumonia Italo Morrow cefTRIAXone (Rocephin) 2 g in sterile water injection cefTRIAXone (Rocephin) 2 g in sterile water injection 2023-10 14:00: 00 08-09 10:35 :29 No 2g 2 g, Intravenou s, Administer over 5 Minutes, Every 24 hours, First dose on Thu08/04/24 at 1400, For 6 doses, Suspected Indication (Select all that apply): Pneumonia Italo Morrow HYDROcodone -acetaminop hen ([place]) 5-325 MG per tablet 1 tablet HYDROcodone -acetaminop hen ([place]) 5-325 MG per tablet 1 tablet 2023-10 03:15: 00 08-04 16:45 :00 No 1{tbl} 1 tablet, Oral, Once, On Thu08/04/24 at 0315, For 1 dose Italo Morrow sennosides (Senokot) tablet 8.6 mg sennosides (Senokot) [...] Indication (Select all that apply): Pneumonia Italo Andino Epic oxybutynin (Ditropan) tablet 5 mg oxybutynin (Ditropan) tablet 5 mg 2023-10 17:00: 00 08-04 16:42 :00 No 5mg Q.5D 5 mg, Oral, 2 times daily, First dose (after last modificati on) on Thu08/03/24 at 1700, For 3 doses Italo rod [facility] Epic perflutren lipid microsphere s (Definity) injection 7.498 [...] Then, shake vial for 45 seconds using manufactur er-provide d Vialmix apparatus. Do not use if [...] evenly distribute prior to administra tion. Italo Andino Epic polyethylen e glycol (PEG) 3350 (Miralax) packet 17 g polyethylen e glycol (PEG) 3350 (Miralax) packet 17 g 2023-10 10:30: 00 Yes 17g QD 17 g, Oral, Daily, First dose on Thu08/03/24 at 1030, Dissolve 17 g in 120 to 240 mL (4 to 8 ounces) of beverage. Italo Andino Epic glucagon injection 1 mg glucagon injection 1 [...] unable to swallow or npo and notify . Italo Andino Epic dextrose 50 % solution 25 g dextrose 50 % solution 25 g 2023-10 10:16: 31 Yes 25g 25 g, Intravenou s, As needed, other, if Blood Glucose </= 50 mg/dL, Starting on Thu08/03/24 at 1016, If BG </=50 mg/dL, give 50 mL of D50W IV push STAT and notify MD. Memoria l [facility] Epic dextrose 50 % solution 12.5 g dextrose 50 % solution 12.5 g 2023-10 0 10:16: 31 Yes 12.5g 12.5 g, Intravenou [...] dose on Thu08/03/24 at 0900, SHAKE WELL Nessperez rod [facility]om Odalys chlorhexidi ne (Peridex) 0.12 % solution 15 mL chlorhexidi ne (Peridex) 0.12 % solution 15 mL 2023-10 0-16 09:00: 00 08-04 10:37 :20 No 15mL Q.25D 15 mL, Mouth/Thro at, 4 times daily, First dose on Thu08/03/24 at 0900, swish and expectorat e Nessperez rod Sina Epic vancomycin (Vancocin) IVPB 1.25 g vancomycin (Vancocin) IVPB 1.25 g 2023-10 08:00: 00 08-04 10:33 :28 No 1.25g Q12H 1.25 g, Intravenou s, at 166.7 mL/hr, Administer over 90 Minutes, Every 12 hours, First dose on Thu08/03/24 at 0800, premix bag, Suspected Indication (Select all that apply): Pneumonia Nessperez Andino [facility] cefepime (Maxipime) 1 g in sterile water (PF) 10 mL injection cefepime (Maxipime) 1 g in sterile water (PF) 10 mL injection 2023-10 07:00: 00 08-04 10:33 :28 No 1g Q6H 1 g, Intravenou s, Administer over 5 Minutes, Every 6 hours, First dose on Thu08/03/24 at 0700, For 7 days, Suspected Indication (Select all that apply): [facility] norepinephr ine (Levophed) 4 mg in sodium chloride 0.9 % 250 mL (0.016 mg/mL) infusion norepinephr ine (Levophed) 4 mg in sodium chloride 0.9 % 250 mL (0.016 mg/mL) infusion 2023-10 0 01:45: 00 08-04 12:51 :03 No 5ug/min 5-70 mcg/min (18.75-262 .5 mL/hr), Intravenou s, Continuous , Starting on Thu08/03/24 at 0200, Infusion Type: Titrate, Initial Dose (mcg/min): 5, Titrate by (mcg/min): 2, Every (minutes): 2-5, Target Blood Pressure (mmHg): MAP 65 or above, Max Dose (mcg/min): 70 Memoria rod [facility] Epic azithromyci n (Zithromax) 500 mg in [...] that apply): Pneumonia Memoria l Sina Epic lactated Ringer's bolus 500 mL lactated Ringer's bolus 500 mL 2023-10 00:30: 00 08-03 02:22 :00 No 500mL 500 mL, Intravenou s, at 250 mL/hr, Administer over 2 Hours, Once, On Thu08/03/24 at 0030, For 1 dose Memoria l [facility] Epic sodium chloride (NS) 0.9 % flush 10 mL sodium chloride (NS) 0.9 % flush 10 mL 2023-10 23:00: 00 Yes 10mL Q12H 10 mL, Intravenou s, Every 12 hours, First dose on Thu08/02/24 at 2300, Administer at least once every 12 hours Memoria l [facility] Epic nystatin (Mycostatin ) 725222 UNIT/GM powder 1 Application nystatin (Mycostatin ) [id number] UNIT/GM powder 1 Application 2023-10 22:47: 05 Yes 1{appli cation} 1 Applicatio n, Topical, As needed, For Fungal Prophylaxi s, Starting on Thu08/02/24 at 2247, Apply to groin and intertrigi nous areas after bathing (no cornstarch baby powder). For ICU only. Memoria l [facility] Epic sodium chloride 0.9 % infusion 250 [...] 22:00: 00 08-08 07:58 :03 No 7500U [id number] 3D 7,500 Units, Subcutaneo us, Every 8 [...] within 1 hour of reconstitu tion Italo Morrow sodium chloride 0.9 % bolus 500 mL [...] Thu08/02/24 at 1845, For 1 dose Italo rod Sina Epic iohexol (OMNIPaque) 350 MG/ML injection 60 mL iohexol (OMNIPaque) 350 MG/ML injection 60 mL 2023-10 18:42: 08 08-02 18:42 :00 No 60mL 60 mL, Intravenou s, Once in imaging, Starting on Thu08/02/24 at 1842, For 1 dose Italo rod [facility] Epic rocuronium (ZeMuron) injection 80 mg rocuronium (ZeMuron) injection 80 mg 2023-10 18:15: 00 08-02 18:25 :00 No 1mg/kg 80 mg (1 mg/kg ?80 [facility] Intravenou s, Once, On [...] dose, Created by cabinet override premix bag Italo Andino Epic fentaNYL Citrate (Sublimaze) 1000 MCG/20ML [...] on Storyboard , Max Dose (mcg/hr): 200 Italo Snowann Epic midazolam in NS (Versed) 50 mg/50mL [...] on Storyboard , Max Dose (mg/hr): 10 Italo Snowann Epic Isolyte-S pH 7.4 infusion 1,000 mL Isolyte-S pH 7.4 infusion 1,000 mL 2023-10 16:55: 00 08-02 17:55 :00 No 1000mL 1,000 mL, Intravenou s, Administer over 1 Hours, Once, On Thu08/02/24 at 1655, For 1 dose, Cold fluids Italo Morrow vancomycin in NS (Vancocin) IVPB 2,000 mg vancomycin in NS (Vancocin) IVPB 2,000 mg 2023-10 16:50: 00 08-02 20:59 :00 No 2000mg 2,000 mg, Intravenou s, at 250 mL/hr, Administer over 120 Minutes, Once, On Thu08/02/24 at 1650, For 1 dose, premix bag, Suspected Indication (Select all that apply): Suspected Sepsis Italo Andino Epic cefepime (Maxipime) 2 g in sterile water [...] (Select all that apply): Suspected Sepsis Italo Morrow fentaNYL Citrate (Sublimaze) 1000 MCG/20ML infusion - Pyxis Override Pull fentaNYL Citrate (Sublimaze) 1000 MCG/20ML infusion - Pyxis Override Pull 2023-10 16:13: 52 08-02 16:30 :00 No Starting on Thu08/02/24 at 1613, For 1 dose, Created by cabinet override Italo Morrow midazolam in NS (Versed) 50 mg/50mL infusion - Pyxis Override Pull midazolam in NS (Versed) 50 mg/50mL infusion - Pyxis Override Pull 2023-10 16:13: 40 08-02 16:30 :00 No Starting on Thu08/02/24 at 1613, For 1 dose, Created by cabinet override Italo Morrow electrolyte -R (pH 7.4) (Normosol-R PH 7.4) solution - Pyxis Override Pull electrolyte -R (pH 7.4) (Normosol-R PH 7.4) solution - Pyxis Override Pull 2023-10 16:07: 57 08-02 16:15 :00 No Starting on Thu08/02/24 at 1607, For 1 dose, Created by cabinet override Italo Morrow Milk of Magnesia 10-27 03:13: 00 No Colt Ross 30 mL, Route: PO, Drug Form: SUSP, Q6H, PRN Constipati on, Start date: 10/26/12 21:13:00, Duration: 30 day, Stop date: 11/25/12 21:12:00 Italo Andino Lovenox 10-26 10:00: 00 No Colt Ross 40 mg, 0.4 mL, Route: SUB-Q, Drug form: INJ, [id number], Start date: 10/26/12 4:00:00, Duration: 30 day, Stop date: 11/24/12 4:00:00 Nessperez Andino promethazin e + Sodium Chloride 0.9% IV 50 mL 10-26 00:01: 00 No Kinlap Jac 6.25 mg, 0.25 mL, Route: IVPB, ONCE, Dosing Weight 135.625, kg, PRN Nausea & Vomiting, Start date: 10/25/12 18:01:00 Nessperez rod Andino Lovenox 40 mg/0.4 mL subcutaneou s solution 10-25 22:00: 44 Yes Colt Ross 40mg/0.4mL , SUB-Q, Daily, 20 syr, Substituti on Allowed Italo Andino [place] 10/325 oral tablet 10-25 22:00: 31 Yes Colt Ross 1-2 tabs, PO, Q4H, PRN, 40 tab, for pain, Substituti on Allowed, Maintenanc e, TAB Italo Andino enoxaparin 10-25 22:00: 00 No Colt Ross 40 mg, Route: SUB-Q, Q24H, Dosing Weight 135.625, kg, Start date: 10/25/12 16:00:00, Duration: 30 day, Stop date: 11/23/12 16:00:00 Italo Andino cefazolin (SCIP) 10-25 22:00: 00 No Colt Ross 2 gm, Route: IVPB, Drug form: INJ, Q8H, Dosing Weight 135.625, kg, Start date: 10/25/12 16:00:00, Duration: 3 doses or times, Stop date: 10/26/12 8:00:00 Italo Andino nalbuphine 10-25 21:51: 00 No Colt [...] mg oral tablet 10-25 21:51: 00 No Colt Ross 2 tab, Route: PO, Drug Form: TAB, Dosing Weight 135.625, kg, Q4H, PRN Pain Score 4-6, Start date: 10/25/12 15:51:00, Duration: 30 day, Stop date: 11/24/12 15:50:00 Italo Andino acetaminoph en 10-25 21:51: 00 No Colt Ross 325 mg, 1 tab, Route: PO, Drug form: TAB, Q4H, Dosing Weight 135.625, kg, PRN Pain/Fever , Start date: 10/25/12 15:51:00, Duration: 30 day, Stop date: 11/24/12 15:50:00 Italo Andino albuterol 0.083% inhalation solution 10-25 18:43: 00 No Iza Yoo 2.49 mg, 3 mL, Route: NEB, Drug form: SOLN, Q5Min, Dosing Weight 135.625, kg, PRN Wheezing, Priority: STAT, Start date: 10/25/12 12:43:00, Duration: 30 day, Stop date: 11/24/12 12:42:00 Nessperez Snowann hydromorpho ne 10-25 18:43: 00 No Iza Y Fredo 0.5 mg, 0.25 mL, Route: IVP, Drug form: INJ, Q5Min, Dosing Weight 135.625, kg, PRN Pain Score 4-6, Start date: 10/25/12 12:43:00, Duration: 5 doses or times, Stop date: Limited # of times Memperez Andino naloxone 10-25 13:35: 00 No Sander Tavares Sircar 0.04 mg, 0.1 mL, Route: IVP, Drug form: INJ, Q2MIN, Dosing Weight 135.625, kg, PRN Narcotic Reversal, Start date: 10/25/12 7:35:00, Duration: 8 doses or times, Stop date: Limited # of times Italo velasco [facility] morphine Sulfate 10-25 13:35: 00 No Sander Tavares Sircar 2 mg, 1 mL, Route: IVP, Drug form: INJ, Q5Min, Dosing Weight 135.625, kg, PRN Pain Score 4-6, Start date: 10/25/12 7:35:00, Duration: 8 doses or times, Stop date: Limited # of times Italo Andino ondansetron 10-25 13:35: 00 No Sander Tavares Sircar 4 mg, 2 mL, Route: IVP, Drug form: INJ, ONCE, Dosing Weight 135.625, kg, PRN Nausea & Vomiting, Start date: 10/25/12 7:35:00 Nessoria rod Andino diphenhydrA MINE 10-25 13:35: 00 No Iza Y Fredo 12.5 mg, 0.25 mL, Route: IVP, Drug form: INJ, PRN, Dosing Weight 135.625, kg, PRN Itching, Start date: 10/25/12 7:35:00, Duration: 30 day, Stop date: 11/24/12 7:34:00 Italo Andino flumazenil 10-25 13:35: 00 No Sander Tavares Sircar 0.2 mg, 2 mL, Route: IVP, Drug form: INJ, PRN, Dosing Weight 135.625, kg, PRN Benzodiaze pine Reversal, Initial dose, Start date: 10/25/12 7:35:00, Duration: 30 day, Stop date: 11/24/12 7:34:00 Memperez Andino midazolam 10-25 13:35: 00 No Sander Isaacson Sircar 2 mg, 2 mL, Route: IVP, Drug form: SOLN, Q5Min, Dosing Weight 135.625, kg, PRN Anxiety, Start date: 10/25/12 7:35:00, Duration: 2 doses or times, Stop date: Limited # of times Memoria rod Snow[facility] labetalol 10-25 13:35: 00 No Sander Tavares Sircar 5 mg, 1 mL, Route: IVP, Drug form: INJ, Q5Min, Dosing Weight 135.625, kg, PRN Elevated BP, Start date: 10/25/12 7:35:00, Duration: 5 doses or times, Stop date: Limited # of times Memperez Andino meperidine 10-25 13:35: 00 No Sander Chapin Sircar 12.5 mg, 0.5 mL, Route: IVP, Drug form: INJ, Q30Min, Dosing Weight 135.625, kg, PRN Other -See Comment, For shivering, Start date: 10/25/12 7:35:00, Duration: 2 doses or times, Stop date: Limited # of times Nessperez rod Andino Lactated Ringers Injection IV 1,000 mL 10-25 13:35: 00 No Sander Tavares Sircar 1,000 mL, Rate: 50 ml/hr, Infuse over: 20 hr, Route: IV, kg, Total Volume: 1,000, Start date: 10/25/12 7:35:00, Duration: 30 day, Stop date: 11/24/12 7:34:00 Memoria rod Andino dexamethaso ne 10-25 13:35: 00 No Iza Y Fredo 4 mg, 1 mL, Route: IVP, Drug form: INJ, ONCE, Dosing Weight 135.625, kg, PRN Nausea & Vomiting, Start date: 10/25/12 7:35:00 Italo Andino fentanyl 10-25 13:35: 00 No Iza Y Fredo 25 microgram, 0.5 mL, Route: IVP, Drug form: INJ, Q5Min, Dosing Weight 135.625, kg, PRN Pain Score 4-6, Start date: 10/25/12 7:35:00, Duration: 4 doses or times, Stop date: Limited # of times Italo Andino butorphanol 10-25 13:35: 00 No Iza Y Fredo 1 mg, 1 mL, Route: IVP, [...] Stop date: Limited # of times Italo rod [facility] cefazolin 10-25 12:30: 00 No Colt Ross 2 gm, 50 mL, Route: IVPB, Drug form: INJ, PRE OP, Start date: 10/25/12 6:30:00, Duration: 1 doses or times, Stop date: 10/25/12 20:00:00 Italo Andino Sodium Chloride 0.9% IV 10-22 20:15: 00 No Colt Ross 25 mL, Route: IV, Start date: 10/22/12 [...] No 1{puff} QD Breo Ellipta 100-25 MCG/INH acetaminoph en 650 mg rectal suppository Insert 1 suppository every 6 hours by rectal route as needed. acetaminoph en 650 mg rectal suppository Insert 1 suppository every 6 hours by rectal route as needed. No 1suppos itor(y/ ies) Q6H acetaminop hen 650 mg rectal suppositor y Insert 1 suppositor y every 6 hours by rectal route as needed. [facility] bisacodyl 10 mg rectal suppository Insert 1 suppository every day by rectal route as needed. bisacodyl 10 mg rectal suppository Insert 1 suppository every day by rectal route as needed. No 1suppos itor(y/ ies) Q1D bisacodyl 10 mg rectal suppositor y Insert 1 suppositor y every day by rectal route as needed. [facility] hyoscyamine 0.[address] 1 tablet every 4 hours by sublingual route as needed. hyoscyamine 0.[address] 1 tablet every 4 hours by sublingual route as needed. No 1 Q4H hyoscyamin e 0.[address] 1 tablet every 4 hours by sublingual route as needed. [facility] concentrate 100 mg/5 mL (20 mg/mL) oral solution Take 0.5 mL every 2 hours by oral route as needed. morphine concentrate 100 mg/5 mL (20 mg/mL) oral solution Take 0.5 mL every 2 hours by oral route as needed. No .5mL Q2H morphine concentrat e 100 mg/5 mL (20 mg/mL) oral solution Take 0.5 mL every 2 hours by oral route as needed. [facility] ciprofloxac in 500 mg tablet Take 1 tablet every day by oral route. ciprofloxac in 500 mg tablet Take 1 tablet every day by oral route. No 1 Q1D ciprofloxa gisella 500 mg tablet Take 1 tablet every day by oral route. [facility] furosemide 40 mg tablet Take 1 tablet every day by oral route. furosemide 40 mg tablet Take 1 tablet every day by oral route. No 1 Q1D furosemide 40 mg tablet Take 1 tablet every day by oral route. [facility] hydrocodone 10 mg-acetamin ophen 325 mg tablet Take 1 tablet every 6 hours by oral route for 1 day. hydrocodone 10 mg-acetamin ophen 325 mg tablet Take 1 tablet every 6 hours by oral route for 1 day. No hydrocodon e 10 mg-acetami nophen 325 mg tablet Take 1 tablet every 6 hours by oral route for 1 day. [facility] spironolact one 25 mg tablet Take 1 tablet twice a day by oral route. spironolact one 25 mg tablet Take 1 tablet twice a day by oral route. No 1 BID spironolac tone 25 mg tablet Take 1 tablet twice a day by oral route. [facility] [facility]s Vital Name Observation Time Observation Value Comments S ource BP Systolic 2025-02-24 00:00:00 139 mm[Hg] [facility] BMI (Body Mass Index) 2025-02-24 00:00:00 30.4 kg/m2 [facility] BP Diastolic 2025-02-24 00:00:00 88 mm[Hg] [facility] Body Weight 2025-02-24 00:00:00 3296 [oz_av] [facility] Height 2025-02-24 00:00:00 69 [in_i] [facility] BP Diastolic 2025-02-23 00:00:00 68 mm[Hg] [facility] BMI (Body Mass Index) 2025-02-23 00:00:00 30.4 kg/m2 [facility] BP Systolic 2025-02-23 00:00:00 112 mm[Hg] [facility] Height 2025-02-23 00:00:00 69 [in_i] [facility] Body Weight 2025-02-23 00:00:00 3296 [oz_av] [facility] Body Weight 2025-02-17 00:00:00 3296 [oz_av] [facility] BMI (Body Mass Index) 2025-02-17 00:00:00 30.4 kg/m2 [facility] Height 2025-02-17 00:00:00 69 [in_i] [facility] BP Diastolic 2025-02-17 00:00:00 64 mm[Hg] [facility] BP Systolic 2025-02-17 00:00:00 106 mm[Hg] [facility] Systolic blood pressure 2024-08-11 13:00:00 97 mm[Hg] [facility] Epic Diastolic blood pressure 2024-08-11 13:00:00 62 mm[Hg] [facility] Epic Heart rate 2024-08-11 13:00:00 67 /min [facility] Body temperature 2024-08-11 13:00:00 37 Merry [facility] Epic Respiratory rate 2024-08-11 13:00:00 20 /min [facility] Epic Oxygen saturation in Arterial blood by Pulse oximetry 2024-08-11 13:00:00 94 /min [facility] Epic Body height 2024-08-03 09:15:00 180.3 cm Arnaldo renettal [facility] Epic Body weight 2024-08-03 09:15:00 117 [facility] BMI 2024-08-03 09:15:00 35.99 [facility] Diastolic (mm Hg) 2012-10-28 18:26:00 [facility] Systolic (mm Hg) 2012-10-28 18:26:00 [facility] 2012-10-28 [facility]:26[facility] 2012-10-28 18:26:00 [facility] Temperature Oral (F) 2012-10-28 18:26:00 100.5 F [facility] Diastolic (mm Hg) 2012-10-28 14:13:00 [facility] Systolic (mm Hg) 2012-10-28 14:13:00 [facility] Respitory Rate 2012-10-28 14:13:00 [facility] Temperature Oral (F) 2012-10-28 14:13:00 100 F [facility] Heart Rate 2012-10-28 14:13:00 [facility] Temperature Oral (F) 2012-10-28 10:00:00 98.7 F [facility] Heart Rate 2012-10-28 10:00:00 [facility] Diastolic (mm Hg) 2012-10-28 10:00:00 [facility] Respitory Rate 2012-10-28 10:00:00 [facility] Systolic (mm Hg) 2012-10-28 10:00:00 [facility] Weight 2012-10-26 01:00:00 [facility] Height 2012-10-26 01:00:00 180.34 cm [facility] Weight 2012-10-21 19:53:00 [facility] Height 2012-10-21 19:53:00 181.61 cm [facility] Procedures Procedure Date / Time Performed Performing Clinician Source DRAINAGE OF PERITONEAL CAVITY, PERCUTANEOUS APPROA 2024-10-10 00:00:[address] BED MOBILITY TREATMENT USING ASSIST EQUIPMENT 2024-10-09 00:00:00 [facility] TRANSFER TRAINING TREATMENT USING ASSIST EQUIPMENT 2024-10-09 00:00:00 [facility] DRESSING TECHNIQUES TREATMENT 2024-10-09 00:00:00 [facility] INSPECTION OF TRACHEOBRONCHIAL TREE, ENDO 2024-10-06 00:00:00 [facility] EXTRACTION OF LEFT MAIN BRONCHUS, ENDO, DIAGN 2024-10-06 00:00:00 [facility] EXTRACTION OF RIGHT MAIN BRONCHUS, ENDO, DIAGN 2024-10-06 00:00:00 [facility] INSERTION OF INFUSION DEV INTO R BASILIC VEIN, PER 2024-10-04 00:00:00 [facility] INSERTION OF INFUSION DEV INTO SUP VENA CAVA, PERC 2024-10-04 00:00:00 [facility] DRAINAGE OF PERITONEAL CAVITY, PERCUTANEOUS APPROA 2024-10-03 00:00:00 [facility] POCT Glucose 2024-09-02 00:00:00 [facility] Complete Blood Count w/Diff and Platelet 2024-08-17 00:00:00 [facility] Comprehensive Metabolic Panel 2024-08-17 00:00:00 [facility] Magnesium Level 2024-08-17 00:00:00 Nessor ial [facility] Epic Phosphorus Level 2024-08-17 00:00:00 Arnaldo rial [facility] Epic POC GLUCOSE UNSOLICITED RESULTS 2024-08-11 12:41:00 Elizabeth Kell[facility] Epic POC GLUCOSE UNSOLICITED RESULTS 2024-08-11 08:21:00 Elizabeth Kellogg [facility] Epic COMPLETE BLOOD COUNT W/DIFF AND PLATELET 2024-08-11 05:31:00 Gutierrez Garcia [facility] COMPLETE BLOOD COUNT 2024-08-11 05:31:00 Gutierrez Garcia [facility] Epic AUTOMATED DIFFERENTIAL 2024-08-11 05:31:00 Rosy Garcia [facility] COMPREHENSIVE METABOLIC PANEL 2024-08-11 05:31:00 Gutierrez Garcia [facility] Epic MAGNESIUM LEVEL 2024-08-11 05:31:00 Gutierrez Garcia [facility] Epic PHOSPHORUS LEVEL 2024-08-11 05:31:00 Gutierrez Garcia [facility] [place] Epic POC GLUCOSE UNSOLICITED RESULTS 2024-08-10 19:57:00 Elizabeth Kell[facility] POC GLUCOSE UNSOLICITED RESULTS 2024-08-10 11:49:00 Elizabeth Kell[facility] Epic POC GLUCOSE UNSOLICITED RESULTS 2024-08-10 09:23:00 Elizabeth Kellogg [facility] Epic COMPLETE BLOOD COUNT W/DIFF AND PLATELET 2024-08-10 05:57:00 Gutierrez Garcia [facility] COMPLETE BLOOD COUNT 2024-08-10 05:57:00 Gutierrez Garcia [facility] AUTOMATED DIFFERENTIAL 2024-08-10 05:57:00 Radha, Rosy ad [facility] COMPREHENSIVE METABOLIC PANEL 2024-08-10 05:57:00 Radha Gutierrez [facility] MAGNESIUM LEVEL 2024-08-10 05:57:00 Gutierrez Garcia Arnaldo rial [facility] PHOSPHORUS LEVEL 2024-08-10 05:57:00 Gutierrez Garcia Mem orial [facility] Hepatitis C Viral RNA Genotype, LiPA 2024-08-10 00:00:00 [facility] Testosterone, Free and Total 2024-08-10 00:00:00 [facility] POC GLUCOSE UNSOLICITED RESULTS 2024-08-09 16:14:00 Elizabeth Kellogg [facility] POC GLUCOSE UNSOLICITED RESULTS 2024-08-09 12:11:00 Elizabeth Kellogg [facility] COMPLETE BLOOD COUNT W/DIFF AND PLATELET 2024-08-09 04:11:00 Gutierrez Garcia [facility] COMPLETE BLOOD COUNT 2024-08-09 04:11:00 Radha Gutierrez [facility] AUTOMATED DIFFERENTIAL 2024-08-09 04:11:00 Rosy Garcia [facility] COMPREHENSIVE METABOLIC PANEL 2024-08-09 04:11:00 Gutierrez Garcia [facility] MAGNESIUM LEVEL 2024-08-09 04:11:00 Gutierrez Garcia Arnaldo rial [facility] PHOSPHORUS LEVEL 2024-08-09 04:11:00 [facility] 2024-08-09 00:00:00 [facility] POC GLUCOSE UNSOLICITED RESULTS 2024-08-08 16:06:00 Elizabeth Kellogg [facility] COMPLETE BLOOD COUNT W/DIFF AND PLATELET 2024-08-08 12:58:00 Sudhir Rangel [facility] PROTIME-INR 2024-08-08 12:58:00 Ajith Pichardo [facility] HEPARIN ANTIBODY BY JENNIFER W/RFLX MARANDA 2024-08-08 12:58:00 Gutierrez Garcia [facility] COMPLETE BLOOD COUNT 2024-08-08 12:58:00 Sudhir Rangel [facility] AUTOMATED DIFFERENTIAL 2024-08-08 12:58:[address] [facility] POC GLUCOSE UNSOLICITED RESULTS 2024-08-08 11:09:00 Tanner-Elizabeth Pro [facility] POC GLUCOSE UNSOLICITED RESULTS 2024-08-08 07:59:00 Tanner-Elizabeth Pro [facility] COMPLETE BLOOD COUNT W/DIFF AND PLATELET 2024-08-08 04:23:00 Gutierrez Garcia [facility] COMPLETE BLOOD COUNT 2024-08-08 04:23:00 Gutierrez Garcia [facility] AUTOMATED DIFFERENTIAL 2024-08-08 04:23:00 Rosy Garcia [facility] COMPREHENSIVE METABOLIC PANEL 2024-08-08 04:23:00 Gutierrez Garcia [facility] MAGNESIUM LEVEL 2024-08-08 04:23:00 Gutierrez Garcia Memo rial [facility] PHOSPHORUS LEVEL 2024-08-08 04:23:00 Gutierrez Garcia Mem orial [facility] IR body biopsy lymph node 2024-08-08 00:00:00 [facility] POC GLUCOSE UNSOLICITED RESULTS 2024-08-07 20:08:00 Tanner-Elizabeth Pro [facility] POC GLUCOSE UNSOLICITED RESULTS 2024-08-07 17:08:00 Elizabeth Kellogg [facility] XR HUMERUS 2 VIEWS RIGHT 2024-08-07 12:25:00 Gutierrez Garcia [facility] POC GLUCOSE UNSOLICITED RESULTS 2024-08-07 12:02:00 Tanner-Elizabeth Pro [facility] POC GLUCOSE UNSOLICITED RESULTS 2024-08-07 08:51:00 Tanner-Elizabeth Pro [facility] COMPLETE BLOOD COUNT W/DIFF AND PLATELET 2024-08-07 05:52:00 [facility] COMPLETE BLOOD COUNT 2024-08-07 05:52:00 Gregor Kriss Coughlin [facility] AUTOMATED DIFFERENTIAL 2024-08-07 05:52:00 Diony Bundy [facility] COMPREHENSIVE METABOLIC PANEL 2024-08-07 05:52:00 Gregor Kriss [facility] LACTATE DEHYDROGENASE 2024-08-06 16:35:00 Margaret Garcia [facility] ACUTE HEPATITIS PANEL 2024-08-06 16:31:00 Margaret Garcia [facility] CANCER ANTIGEN 19-9 2024-08-06 16:31:00 Gutierrez Garcia [facility] HIV 4TH GEN WITH REFLEX 2024-08-06 16:31:00 Gutierrez Garcia [facility] HEPATITIS C VIRUS RNA BY PCR QUANT (AMB) 2024-08-06 16:31:00 Gutierrez Garcia [facility] HEPATITIS C ANTIBODY W/HCV RNA PCR IF INDICATED 2024-08-06 16:31:00 Gutierrez Garcia [facility] CARCINOEMBRYONIC ANTIGEN 2024-08-06 16:31:00 Gutierrez Garcia [facility] PROSTATE SPECIFIC ANTIGEN TOTAL AND FREE 2024-08-06 16:31:00 Gutierrez Garcia [facility] POC GLUCOSE UNSOLICITED RESULTS 2024-08-06 16:19:00 Elizabeth Kellogg [facility] WOUND OSTOMY EVAL AND TREAT 2024-08-06 15:16:40 Gutierrez Vega [facility] POC GLUCOSE UNSOLICITED RESULTS 2024-08-06 12:54:00 Tanner-Elizabeth Pro [facility] POC GLUCOSE UNSOLICITED RESULTS 2024-08-06 08:54:00 Elizabeth Kellogg [facility] COMPLETE BLOOD COUNT W/DIFF AND PLATELET 2024-08-06 05:32:00 Kriss Bundy Ced [facility] COMPLETE BLOOD COUNT 2024-08-06 05:32:00 Kriss Bundy [facility] AUTOMATED DIFFERENTIAL 2024-08-06 05:32:00 Diony Bundy [facility] COMPREHENSIVE METABOLIC PANEL 2024-08-06 05:32:00 Kriss Bundy [facility] MAGNESIUM LEVEL 2024-08-06 05:32:00 Kriss Bundy [facility] PHOSPHORUS LEVEL 2024-08-06 05:32:00 Jamie Acevedo [facility] POC GLUCOSE UNSOLICITED RESULTS 2024-08-05 15:47:00 Siladia Ebenezer [facility] POC GLUCOSE UNSOLICITED RESULTS 2024-08-05 11:33:00 Siladia Ebenezer [facility] POC GLUCOSE UNSOLICITED RESULTS 2024-08-05 07:51:00 Vince Ebenezer [facility] COMPLETE BLOOD COUNT W/DIFF AND PLATELET 2024-08-05 05:54:00 Paco Morales [facility] COMPLETE BLOOD COUNT 2024-08-05 05:54:00 Faheem Morales [facility] AUTOMATED DIFFERENTIAL 2024-08-05 05:54:00 Isaias Morales [facility] CALCIUM LEVEL IONIZED WHOLE BLOOD 2024-08-05 03:37:00 Paco Morales [facility] BASIC METABOLIC PANEL 2024-08-05 03:37:00 Claudine Morales [facility] HEPATIC FUNCTION PANEL 2024-08-05 03:37:00 Isaias Morales [facility] MAGNESIUM LEVEL 2024-08-05 03:37:00 Paco Morales [facility] PHOSPHORUS LEVEL 2024-08-05 03:37:00 Paco Morales [facility] POC GLUCOSE UNSOLICITED RESULTS 2024-08-04 23:26:00 SiEbenezer randolph [facility] POC GLUCOSE UNSOLICITED RESULTS 2024-08-04 20:09:00 SiladiaBostonEbenezer [facility] POC GLUCOSE UNSOLICITED RESULTS 2024-08-04 15:42:00 Siladia Ebenezer [facility] POC GLUCOSE UNSOLICITED RESULTS 2024-08-04 12:01:00 Ebenezer Clarke [facility] POC GLUCOSE UNSOLICITED RESULTS 2024-08-04 08:33:00 Ebenezer Clarke [facility] POC GLUCOSE UNSOLICITED RESULTS 2024-08-04 03:47:00 Ebenezer Clarke [facility] COMPLETE BLOOD COUNT W/DIFF AND PLATELET 2024-08-04 01:46:00 Carmen, Paco Avalos [facility] CALCIUM LEVEL IONIZED WHOLE BLOOD 2024-08-04 01:46:00 Carmen, Paco Avalos [facility] VANCOMYCIN LEVEL AUC 2024-08-04 01:46:00 KvngagustínEbenezer [facility] COMPLETE BLOOD COUNT 2024-08-04 01:46:00 Carmen, Faheem Avalos [facility] AUTOMATED DIFFERENTIAL 2024-08-04 01:46:00 Carmen, Isaias Avalos [facility] BASIC METABOLIC PANEL 2024-08-04 01:46:00 Carmen, Claudine Avalos [facility] HEPATIC FUNCTION PANEL 2024-08-04 01:46:00 Carmen, Isaias Avalos [facility] MAGNESIUM LEVEL 2024-08-04 01:46:00 Carmen, Paco velasco [facility] PHOSPHORUS LEVEL 2024-08-04 01:46:00 Carmen, Paco woods [facility] POC GLUCOSE UNSOLICITED RESULTS 2024-08-03 23:38:00 Ebenezer Clarke [facility] POC GLUCOSE UNSOLICITED RESULTS 2024-08-03 20:06:00 Ebenezer Clarke [facility] POC GLUCOSE UNSOLICITED RESULTS 2024-08-03 16:02:00 Ebenezer Clarke [facility] POC GLUCOSE UNSOLICITED RESULTS 2024-08-03 12:30:00 KvngagustínEbenezer [facility] PROCALCITONIN LEVEL 2024-08-03 12:27:00 Paco Morales [facility] HIV 4TH GEN WITH REFLEX 2024-08-03 12:27:00 Gene Morales [facility] TRANSPLANT RESPIRATORY VIRAL PANEL [facility] 2024-08-03 12:27:00 Vince Ebenezer [facility] TRANSTHORACIC ECHO (TTE) COMPLETE W/ CONTRAST 2024-08-03 10:20:00 Nneka Washington [facility] POC GLUCOSE UNSOLICITED RESULTS 2024-08-03 08:08:00 Kvngagustín Ebenezer [facility] XR ABDOMEN 1 VIEW 2024-08-03 05:50:00 Paco Coy [facility] POC GLUCOSE UNSOLICITED RESULTS 2024-08-03 03:43:00 KvngladiBoston tiradoEbenezer [facility] POC ARTERIAL BLOOD GAS AND BASIC PANEL UNSOLICITED RESULTS 2024-08-03 03:13:00 KvngladiBoston [facility] POC GLUCOSE UNSOLICITED RESULTS 2024-08-03 03:09:00 [facility] ETHANOL LEVEL 2024-08-03 03:06:00 [facility] RESPIRATORY CULTURE W/GRAM STAIN 2024-08-03 01:28:00 Rina Rubio [facility] MRSA BY PCR 2024-08-03 01:03:00 Rina Rubio [facility] LEGIONELLA ANTIGEN, URINE 2024-08-03 01:02:00 Ramiro [facility] DRUG SCREEN URINE (10 DRUG) 2024-08-03 01:02:00 Rina Monsivais [facility] UA WITH CULTURE IF INDICATED 2024-08-03 01:02:00 Rina Farley [facility] Thoracentesis 2024-08-03 00:00:00 Italo velasco [facility] COMPLETE BLOOD COUNT W/DIFF AND PLATELET 2024-08-02 23:17:00 Paco Coy [facility] TROPONIN I HIGH SENSITIVITY (SINGLE ORDER) 2024-08-02 23:17:00 Aretha Griffin [facility] COMPLETE BLOOD COUNT 2024-08-02 23:17:00 Paco Edwards [facility] AUTOMATED DIFFERENTIAL 2024-08-02 23:17:00 Paco Rhodes [facility] BASIC METABOLIC PANEL 2024-08-02 23:17:00 Piper Griffin [facility] VANCOMYCIN LEVEL 2024-08-02 23:17:00 Paco Coy Davie [facility] MAGNESIUM LEVEL 2024-08-02 23:17:00 LolaharvindercharlyDavin [facility] PHOSPHORUS LEVEL 2024-08-02 23:17:00 Anneliese Paco Broderick [facility] POC ARTERIAL BLOOD GAS AND BASIC PANEL UNSOLICITED RESULTS 2024-08-02 23:03:00 KvngagustínEbenezer [facility] POC GLUCOSE UNSOLICITED RESULTS 2024-08-02 22:57:00 Vince Ebenezer [facility] INFLUENZA A/B ANTIGENS 2024-08-02 20:01:00 Venus Griffin [facility] CORONAVIRUS (COVID-19) RAKESH 2024-08-02 20:01:00 Aretha Griffin [facility] CT ABDOMEN PELVIS W IV CONTRAST 2024-08-02 18:45:00 Aretha Griffin [facility] CT ANGIOGRAM CHEST PULMONARY EMBOLISM 2024-08-02 18:45:00 Aretha Griffin [facility] CT ANGIOGRAM BRAIN NECK 2024-08-02 18:41:00 Cedric Griffin [facility] CT BRAIN WO IV CONTRAST 2024-08-02 18:41:00 Cedric Griffin [facility] TROPONIN I HIGH SENSITIVITY CARESET (1ST HR) 2024-08-02 18:12:00 Aretha Griffin [facility] BLOOD CULTURE 2024-08-02 17:34:00 Aretha Griffin [facility] TYPE AND SCREEN 2024-08-02 17:34:00 Aretha Griffin [facility] ECG 12-LEAD 2024-08-02 17:03:14 [facility] 2024-08-02 16:50:00 [facility] 2024-08-02 16:50:00 Aretha Griffin [facility] THYROID STIMULATING HORMONE W/ REFLEX FREE T4 2024-08-02 16:50:00 Aretha Griffin [facility] TROPONIN I HIGH SENSITIVITY CARESET 2024-08-02 16:50:00 Aretha Griffin [facility] THROMBOELASTOGRAPH RAPID 2024-08-02 16:50:00 Grecia Griffin [facility] TROPONIN I HIGH SENSITIVITY CARESET (BASELINE) 2024-08-02 16:50:00 Aretha Griffin [facility] LACTIC ACID WITH 2 HOUR REFLEX 2024-08-02 16:50:00 Aretha Griffin [facility] COMPLETE BLOOD COUNT 2024-08-02 16:50:00 Blanca Griffin [facility] AUTOMATED DIFFERENTIAL 2024-08-02 16:50:00 Venus Griffin [facility] BASIC METABOLIC PANEL 2024-08-02 16:50:00 Piper Griffin [facility] HEPATIC FUNCTION PANEL 2024-08-02 16:50:00 Venus Griffin [facility] AMMONIA LEVEL 2024-08-02 16:50:00 Aretha Griffin [facility] CREATINE KINASE (CK TOTAL) 2024-08-02 16:50:00 Aretha Griffin [facility] BLOOD GAS, VENOUS 2024-08-02 16:50:00 Aretha Griffin [facility] LIPASE LEVEL 2024-08-02 16:50:00 Aretha Griffin [facility] MAGNESIUM LEVEL 2024-08-02 16:50:00 Aretha Griffin [facility] B-TYPE NATRIURETIC PEPTIDE 2024-08-02 16:50:00 Aretha Griffin [facility] PHOSPHORUS LEVEL 2024-08-02 16:50:00 Aretha Griffin [facility] COMPLETE BLOOD COUNT W/DIFF AND PLATELET 2024-08-02 16:50:00 Aretha Griffin [facility] XR CHEST 1 VIEW 2024-08-02 16:42:40 Aretha Griffin [facility] Arterial Line 2024-08-02 16:01:00 Daredia, Alt mormonism Shan [facility] Blood gas, arterial 2024-08-02 00:00:00 [facility] Insertion of Peritoneal Drain [facility] - Knee Replacement [facility] Shoulder Surgery Procedure [facility] Amputation of finger tip <sup>1</sup> [facility] Colonoscopy [facility] Hip replacement <sup>2</sup> [facility] Nasal operation <sup>3</sup> [facility] Oxygen Therapy - Patient Type: Adult; Device: Nasal Cannula; Rate in liters per minute: 4 Lpm; Follow Respiratory Pathway: Yes [facility] Encounters Start Date/Time End Date/Time Encounter Type Admission Type Attending Clinicians Care Facility Care Department Encounter ID Source 2022-09-02 17:22:26 Outpatient [facility] [id number] [place] [address] 2022-02-03 13:19:01 Outpatient [place]errano [facility] [id number] [facility] 2021-11-13 13:21:23 Outpatient Der[address] Gavin [facility] [id number] [facility] 2025-02-24 00:00:00 2025-02-24 00:00:00 ADRIANA Bejarano: [address] [place] [phone] , [facility]. [facility] [id number] [facility] 2025-02-23 00:00:00 2025-02-23 00:00:00 Luis M Orellana MD: [address] [place] [phone] , Ph. Critical access hospital[facility] [id number] [facility] 2025-02-17 00:00:00 2025-02-17 00:00:00 ADRIANA Bejarano: [address] [place] [phone] , Ph. [facility] [id number] [facility] 2024-10-01 01:06:00 2024-10-15 19:55:00 Inpatient EM Luisa Vincent [facility] TELE [id number] [facility] 2024-08-22 00:00:00 2024-08-22 11:29:17 Patient Outreach [place] Kellie [facility] 6400 [id number] [facility] 2024-08-15 00:00:00 2024-08-15 14:53:56 Patient Outreach [place] [facility] 6400 [id number] [facility] 2024-08-12 00:00:00 2024-08-12 16:58:53 Patient Outreach [place] [facility] 6400 [id number] [facility] 2024-08-02 16:01:00 2024-08-11 16:46:00 Hospital Encounter Aretha Griffin, Elizabeth Riggins [facility] [id number] [facility] 2024-08-02 17:03:42 2024-08-02 23:59:00 Hospital Encounter Services, [facility] [id number] [facility] 2022-07-28 00:00:00 2022-07-28 00:00:00 (TEL) [facility] [id number] [facility] 2022-07-11 15:39:00 2022-07-11 15:39:00 Outpatient Jasmyn Sanders [facility] [id number] [facility] 2022 00:00:00 2022 00:00:00 Outpatient Thomas_T [facility] [id number] [facility] 2022-05-02 03:27:00 2022-05-02 03:27:00 Outpatient GAYLORD_S [facility] [id number] [facility] 2022-04-15 05:23:00 2022-04-15 05:23:00 Outpatient GAYLORD_S [facility] [id number] [facility] 2021-10-29 11:00:00 2021-10-29 11:00:[id number] [facility] 2021-09-09 00:00:00 2021-09-09 00:00:00 (TEL) STLMLC STL[facility] [id number] [facility] 2021-07-09 00:00:00 2021-07-09 00:00:00 Outpatient STLMLC STLMLC [id number] [facility] 2021-07-09 00:00:00 2021-07-09 00:00:00 Outpatient STLMLC STLMLC [id number] [facility] 2021-04-17 00:00:00 2021-04-17 00:00:00 Outpatient STLMLC STLMLC [id number] [facility] 2021-03-01 11:00:00 2021-03-01 11:00:00 [place] [id number] [facility] Results Test Description Test Time Test Comments Results Result Co mments Source PARATHYROID HORMONE [id number] 05:08:00* Test Item Value Reference Range Interpretation Comme nts PARATHYROID HORMONE INTACT (test code = PARAI) 38 pg/mL 15-65 Performed At: [facility] [id number] Kyle L MD Ph:[phone] BASIC METABOLIC [id number] 06:20:00* Test Item Value Reference Range Interpretation [...] CA) 7.8 mg/dL 8.7-10.4 L CBC W/AUTO [id number] 06:13:00* Test Item Value Reference Range Interpretation [...] = NRBC#) 0.00 X10 3uL 0.00-0.01 N [id number] 01:23:00* Test Item Value Reference Range Interpretation Comme nts GLUBED (test code = GLUBED) 108 mg/dL 70-110 N PERITONEAL FLD CELL CT/[id number] 15:04:00* Test Item Value Reference Range Interpretation [...] = TOTCELLFL) 100 Specimen comments: ASCITIESCYTOLOGY NON [id number] 12:06:00* Test Item Value Reference Range Interpretation Comme nts CYTOLOGY NON BLADE FILER (test code = CR) R UN DATE: 10/10/24 [place] - Lab PAGE 1 RUN TIME: 1207 Specimen Inquiry RUN USER: INTERFACE P ATIENT: ABAD HARRINGTON [facility] #: [id number] AGE/SX: 69/M ROOM: [facility] RE10/01/24REG DR: Luisa Vincent MD : 55 BED: 1 DIS: STATUS: ADM IN TLOC: SPEC #: [id number] RECD: 10/07/24 STATUS: KAYLEEN LEVINE #: [id number] DANA: 10/06/24- [facility] DR: Fawad Jacobo MD ENTERED: 10/07/24 SP TYPE: CYTO NGYN OTHR DR: Self Referred Arsh Tamez MD, Tamer MD Malhotra,Maria Luz WILLIAMSON Undefined ProviderORDERED: 34134, GM LEVEL 4, ANATOMIC SPEC COPIES TO: Self Referred Arsh Tamez MD [address] [place], [place] [address] Hiro Hoang MD [address] [place], [place] [address] Maria Luz Veloz MD [facility] [place], [place] [address] OTHER PHONE [phone] (CELL) Fawad Jacobo MD [address] [place], [place] [address] Undefined Provider PROCEDURES: 40303 (10/07/24) GM LEVEL 4 (10/07/24) TISSUES: A. BRONCHIAL WASHING (CYTOSPIN) CONTINUED ON NEXT PAGE R UN DATE: 10/10/24 [facility] - Lab PAGE 2 RUN TIME: 1207 Specimen Inquiry RUN USER: INTERFACE S PEC #: [id number] PATIENT: ABAD HARRINGTON #[id number] (Continued) CLINICAL HISTORY SAME FINAL DIAGNOSIS Bronchial washings, NOS, cytology (cytospin and cell block): - No malignant cells identified. GROSS DESCRIPTION Received without fixative labeled "bronchial washing" is 20 cc clear body fluid, processedfor cytospin and cell block for cytology evaluation. Professional and Technical component performed [address] [address] [address] Unless gross only, the diagnosis is based [...] ASPIRATION PNEUMONIA -------- Signed SIGNATURE ON FILE SalvadorJaunfredo 10/10/24 1206 END OF REPORT BASIC METABOLIC [id number] 05:22:00* Test Item Value Reference Range Interpretation [...] CA) 8.1 mg/dL 8.7-10.4 L CBC W/AUTO [id number] 05:14:00* Test Item Value Reference Range Interpretation [...] = NRBC#) 0.00 X10 3uL 0.00-0.01 N [id number] 19:11:00* Test Item Value Reference Range Interpretation Comme nts GLUBED (test code = GLUBED) 149 mg/dL 70-110 H [id number] 16:28:00* Test Item Value Reference Range Interpretation Comme nts GLUBED (test code = GLUBED) 130 mg/dL 70-110 H [id number] 11:35:00* Test Item Value Reference Range Interpretation Comme nts GLUBED (test code = GLUBED) 104 mg/dL 70-110 N [id number] 19:24:00* Test Item Value Reference Range Interpretation Comme nts GLUBED (test code = GLUBED) 164 mg/dL 70-110 H [id number] 16:13:00* Test Item Value Reference Range Interpretation Comme nts GLUBED (test code = GLUBED) 136 mg/dL 70-110 H [id number] 16:39:00* Test Item Value Reference Range Interpretation Comme nts GLUBED (test code = GLUBED) 136 mg/dL 70-110 H [id number] 12:04:00* Test Item Value Reference Range Interpretation Comme nts GLUBED (test code = GLUBED) 135 mg/dL 70-110 H [id number] 08:00:00* Test Item Value Reference Range Interpretation Comme nts GLUBED (test code = GLUBED) 98 mg/dL 70-110 N BASIC METABOLIC [id number] 05:28:00* Test Item Value Reference Range Interpretation [...] code = CA) 7.9 mg/dL 8.7-10.4 L [id number] 05:21:00* Test Item Value Reference Range Interpretation Comme nts AMMONIA (test code = AMM) 32 umol/L 11.0-32.0 N CBC W/AUTO [id number] 05:05:00* Test Item Value Reference Range Interpretation [...] = NRBC#) 0.00 X10 3uL 0.00-0.01 N [id number] 22:57:00* Test Item Value Reference Range Interpretation Comme nts GLUBED (test code = GLUBED) 130 mg/dL 70-110 H [id number] 16:49:00* Test Item Value Reference Range Interpretation Comme nts GLUBED (test code = GLUBED) 102 mg/dL 70-110 N BASIC METABOLIC [id number] 14:22:00* Test Item Value Reference Range Interpretation [...] (test code = ECRCL) 120 mL/min >30 [id number] 11:37:00* Test Item Value Reference Range Interpretation Comme [facility] GLUBED (test code = GLUBED) 128 mg/dL 70-110 H [id number] 08:03:00* Test Item Value Reference Range Interpretation Comme [facility] GLUBED (test code = GLUBED) 136 mg/dL 70-110 H ARTERIAL BLOOD [id number] 06:35:00* Test Item Value Reference Range Interpretation Comme [facility] ARTERIAL BLOOD GAS PH (test code = [...] NORMAL <2.0POTENTIALLY TOXIC >20.0 AB HEPATITIS B [id number] 04:07:00* Test Item Value Reference Range Interpretation Comme [facility] AB HEPATITIS B SURFACE (test code = HBSAB) 8.5 mIU/mL See_Comment A Status of Immuni ty Anti-HBs Level Inconsis tent with Immunity 0.0 - 10.0Consistent with Immunity >10.0Performed At: [facility] [id number] Regino Velasco MD Ph:[phone] [Automated message] The system which generated this result transmitted reference range: Immunity>10. The reference range was not used to interpret this result as normal/abnormal. [id number] 20:25:00* Test Item Value Reference Range Interpretation Comme nts GLUBED (test code = GLUBED) 156 mg/dL 70-110 H [id number] 16:25:00* Test Item Value Reference Range Interpretation Comme nts GLUBED (test code = GLUBED) 142 mg/dL 70-110 H [id number] 11:20:00* Test Item Value Reference Range Interpretation Comme [facility] GLUBED (test code = GLUBED) 150 mg/dL 70-110 H ARTERIAL BLOOD [id number] 09:27:00* Test Item Value Reference Range Interpretation Comme [facility] ARTERIAL BLOOD GAS PH (test code = [...] % 0.0-1.5 N NORMAL <2.0POTENTIALLY TOXIC >20.0 [id number] 04:29:00* Test Item Value Reference Range Interpretation Comme nts AMMONIA (test code = AMM) 36 umol/L 11.0-32.0 HH CBC W/AUTO [id number] 04:23:00* Test Item Value Reference Range Interpretation [...] BA#) 0.0 K/mm3 0.0-0.2 N BASIC METABOLIC [id number] 04:21:00* Test Item Value Reference Range Interpretation [...] (test code = ECRCL) 96 mL/min >30 [id number] 20:20:00* Test Item Value Reference Range Interpretation Comme nts GLUBED (test code = GLUBED) 161 mg/dL 70-110 H [id number] 17:01:00* Test Item Value Reference Range Interpretation Comme nts GLUBED (test code = GLUBED) 122 mg/dL 70-110 H ACUTE HEPATITIS [id number] 16:02:00* Test Item Value Reference Range Interpretation Comme nts AB HEPATITIS A IGM (test code = HAVMAB) NON REACTIVE INDEX NON REACT. Testing done at [facility] [address] [place] [address]. [place] [address] AB HEPATITIS B SURFACE (test code = HBSAB) TEST NOT PERFORMED NON REACT. SEE 1217;S22 FOR NEW ORDER SEPERATED AG HEPATITIS B SURFACE (test code = HBSAG) NON REACTIVE INDEX NonReactive Testing done at [facility] [address] [place] [address]. [place] [address] AB HEPATITIS B CORE IGM (test code = HBCMAB) NON REACTIVE INDEX NON REACT. Testing done at [facility] [address] [place] [address]. [place] [address] AB HEPATITIS C (test code = HCVAB) REACTIVE INDEX NON REACT. A A reactive antib rita test is not diagnostic of activehepatitis C infection. A confirmatory test such as a NucleicAcid Test for HCV RNA test is recommended if clinicallyindicated. Testing done at [facility] [address] [place] [address]. [place] [address] [id number] 11:45:00* Test Item Value Reference Range Interpretation Comme nts GLUBED (test code = GLUBED) 122 mg/dL 70-110 H BASIC METABOLIC [id number] 10:21:00* Test Item Value Reference Range Interpretation [...] L HARD STICKS,MANTION TO NURSEHEPATIC FUNCTION PANEL [id number] 10:16:00* Test Item Value Reference Range Interpretation [...] code = ALKP) 116 U/L 46-116 N [id number] 10:16:00* Test Item Value Reference Range Interpretation Comme nts AMMONIA (test code = AMM) 38 umol/L 11.0-32.0 HH [id number] 08:50:00* Test Item Value Reference Range Interpretation Comme nts GLUBED (test code = GLUBED) 97 mg/dL 70-110 N [id number] 20:48:00* Test Item Value Reference Range Interpretation Comme nts GLUBED (test code = GLUBED) 111 mg/dL 70-110 H [id number] 16:44:00* Test Item Value Reference Range Interpretation Comme nts GLUBED (test code = GLUBED) 98 mg/dL 70-110 N [id number] 11:57:00* Test Item Value Reference Range Interpretation Comme nts GLUBED (test code = GLUBED) 88 mg/dL 70-110 N ACUTE HEPATITIS [id number] 10:31:00* Test Item Value Reference Range Interpretation [...] HCV RNA test is recommended if clinicallyindicated. [id number] 08:06:00* Test Item Value Reference Range Interpretation Comme nts GLUBED (test code = GLUBED) 77 mg/dL 70-110 N COMPREHENSIVE METABOLIC [id number] 06:29:00* Test Item Value Reference Range Interpretation [...] = ALKP) 125 U/L 46-116 H PROTHROMBIN [id number] 05:52:00* Test Item Value Reference Range Interpretation [...] ANTIPHOSPHOLIPID ANTIBODIES 2.5 - 3.5 CBC W/AUTO [id number] 05:51:00* Test Item Value Reference Range Interpretation [...] = NRBC#) 0.00 X10 3uL 0.00-0.01 N [id number] 20:45:00* Test Item Value Reference Range Interpretation Comme nts GLUBED (test code = GLUBED) 138 mg/dL 70-110 H [id number] 11:33:00* Test Item Value Reference Range Interpretation Comme nts GLUBED (test code = GLUBED) 137 mg/dL 70-110 H [id number] 07:54:00* Test Item Value Reference Range Interpretation Comme nts GLUBED (test code = GLUBED) 133 mg/dL 70-110 H [id number] 07:06:00* Test Item Value Reference Range Interpretation Comme nts AMMONIA (test code = AMM) 43 umol/L 11.0-32.0 HH [id number] 06:18:00* Test Item Value Reference Range Interpretation Comme nts PHOSPHOROUS (test code = PHOS) 3.1 mg/dL 2.4-5.1 N [id number] 06:18:00* Test Item Value Reference Range Interpretation Comme nts MAGNESIUM (test code = MAG) 1.8 mg/dL 1.6-2.6 N COMPREHENSIVE METABOLIC [id number] 06:00:00* Test Item Value Reference Range Interpretation [...] = ALKP) 146 U/L 46-116 H LACTIC [id number] 05:59:00* Test Item Value Reference Range Interpretation Comme nts LACTIC ACID (test code = LACT) 1.4 mmol/L 0.5-2.0 N CBC W/AUTO [id number] 05:55:00* Test Item Value Reference Range Interpretation [...] 0.00 X10 3uL 0.00-0.01 N RENAL FUNCTION [id number] 21:33:00* Test Item Value Reference Range Interpretation [...] (test code = ECRCL) 84 mL/min >30 [id number] 21:33:00* Test Item Value Reference Range Interpretation Comme nts MAGNESIUM (test code = MAG) 1.7 mg/dL 1.6-2.6 N [id number] 21:16:00* Test Item Value Reference Range Interpretation Comme nts GLUBED (test code = GLUBED) 156 mg/dL 70-110 H [id number] 17:49:00* Test Item Value Reference Range Interpretation Comme nts GLUBED (test code = GLUBED) 141 mg/dL 70-110 H [id number] 12:06:00* Test Item Value Reference Range Interpretation Comme nts HGBA1C% (test code = HGBA1C%) 5.00 % 0.0-5.6 N ESTIMATED AVERAGE GLUCOSE (t est code = EAG) 97 MG/DL [id number] 11:55:00* Test Item Value Reference Range Interpretation Comme nts GLUBED (test code = GLUBED) 153 mg/dL 70-110 H UA RFLX MICR CULT IF [id number] 10:26:00* Test Item Value Reference Range Interpretation [...] for culture: RiskForSepsis-no oth srcSpecimen Description: CLEAN [id number] 09:06:00* Test Item Value Reference Range Interpretation Comme nts GLUBED (test code = GLUBED) 101 mg/dL 70-110 N TROP-I HIGH [id number] 01:50:00* Test Item Value Reference Range Interpretation Comme nts TROP-I HIGH SENSITIVITY (test code = TROPIHS) 35 ng/L 0-54 N CAUTION: Units o f the current TROPI-HS test methodology(ng/L) differ from the prior test methodology (ng/mL) by afactor of 1000. 99th Percentile: Females: 0 - 34 ng/L Males: 0 - 54 ng/LThese results were obtained using [employer]k0 TnIHreagent. Results from different methodologies should not becompared to one another as quantitative results may vary bymethod. BASIC METABOLIC [id number] 01:50:00* Test Item Value Reference Range Interpretation [...] 6.4 mg/dL 8.7-10.4 LL HEPATIC FUNCTION PANEL [id number] 01:50:00* Test Item Value Reference Range Interpretation [...] = ALKP) 120 U/L 46-116 H LACTIC [id number] 01:43:00* Test Item Value Reference Range Interpretation Comme nts LACTIC ACID (test code = LACT) 1.2 mmol/L 0.5-2.0 N CBC W/AUTO [id number] 01:38:00* Test Item Value Reference Range Interpretation [...] NRBC#) 0.00 X10 3uL 0.00-0.01 N POC [id number] 14:01:04* Test Item Value Reference Range Interpretation Comme [facility] POC Glu (test code = 4012598754) 152 mg/dL 70-99 H POC Performing Location (sushil t code = 5802446547) C3 MED Lab Interpretation (test cod e = 82867-3) Abnormal [facility] [id number] 09:13:48* Test Item Value Reference Range Interpretation Comme nts POC Glu (test code = 5013513654) 186 mg/dL 70-99 H POC Performing Location (sushil t code = 8865170295) [facility]3 [facility] Lab Interpretation (test cod e = 64358-5) Abnormal [facility] Bbuwaho1261-35-48 22:33:59* Test Item Value Reference Range Interpretation Comme nts POC Glu (test code = 2098723477) 120 mg/dL 70-99 H POC Performing Location (sushil t code = 5143956156) [facility] Lab Interpretation (test cod e = 19509-1) Abnormal [facility] Soitwyw0490-84-83 12:22:13* Test Item Value Reference Range Interpretation Comme nts POC Glu (test code = 0644798457) 170 mg/dL 70-99 H POC Performing Location (sushil t code = 5425834456) [facility] Lab Interpretation (test cod e = 46566-7) Abnormal [facility] Wfbhvnt9224-96-93 09:37:28* Test Item Value Reference Range Interpretation Comme nts POC Glu (test code = 5619258263) 103 mg/dL 70-99 H POC Performing Location (sushil t code = 8425384639) [facility] Lab Interpretation (test cod e = 65156-5) Abnormal [facility] Ymlaytf1885-82-42 16:33:34* Test Item Value Reference Range Interpretation Comme nts POC Glu (test code = 3053011300) 151 mg/dL 70-99 H POC Performing Location (sushil t code = 8958135475) [facility]3 [facility] Lab Interpretation (test cod e = 44784-5) Abnormal [facility] Fytgiya5216-68-28 12:19:34* Test Item Value Reference Range Interpretation Comme nts POC Glu (test code = 1039488886) 96 mg/dL 70-99 POC Performing Location (sushil t code = 2511282041) C3 MED [facility] Asqzdzn8669-05-93 16:10:54* Test Item Value Reference Range Interpretation Comme nts POC Glu (test code = 8120021210) 107 mg/dL 70-99 H POC Performing Location (sushil t code = 1722667608) [facility]3 [facility] Lab Interpretation (test cod e = 55875-1) Abnormal [facility] Pgtjxvt0499-69-39 15:04:54* Test Item Value Reference Range Interpretation Comme nts POC Glu (test code = 9386164992) 209 mg/dL 70-99 H POC Performing Location (sushil t code = 6325120907) [facility]3 [facility] Lab Interpretation (test cod e = 64270-0) Abnormal [facility] Lqkudiz7902-22-57 11:38:52* Test Item Value Reference Range Interpretation Comme nts POC Glu (test code = 2514428885) 111 mg/dL 70-99 H POC Performing Location (sushil t code = 7067070581) C3 [facility] Lab Interpretation (test cod e = 95419-7) Abnormal [facility] Gyvzpju8439-29-16 11:38:21* Test Item Value Reference Range Interpretation Comme nts POC Glu (test code = 1463996310) 109 mg/dL 70-99 H POC Glu Comment 1 (test code = 1446109053) Notified RN/MD POC Performing Location (sushil t code = 7277680779) C3 MED Lab Interpretation (test cod e = 72813-9) Abnormal [facility] Jzyytvt4569-45-21 20:46:36* Test Item Value Reference Range Interpretation Comme nts POC Glu (test code = 4739608886) 99 mg/dL 70-99 POC Performing Location (sushil t code = 5788331151) C3 MED [facility] Pziqlkm8302-00-56 12:45:20* Test Item Value Reference Range Interpretation Comme nts POC Glu (test code = 5448177923) 106 mg/dL 70-99 H POC Glu Comment 1 (test code = 7390432460) Notified RN/MD POC Performing Location (sushil t code = 8762747322) C3 MED Lab Interpretation (test cod e = 61208-7) Abnormal [facility] Msbgzli6182-16-40 09:05:30* Test Item Value Reference Range Interpretation Comme nts POC Glu (test code = 6841817807) 142 mg/dL 70-99 H POC Glu Comment 1 (test code = 9298423329) Notified RN/MD POC Performing Location (sushil t code = 6891881904) C3 MED Lab Interpretation (test cod e = 72135-0) Abnormal [facility] Msmtvro5973-56-61 16:53:32* Test Item Value Reference Range Interpretation Comme nts POC Glu (test code = 4670699465) 128 mg/dL 70-99 H POC Performing Location (sushil t code = 8536428675) C3 MED Lab Interpretation (test cod e = 00508-5) Abnormal [facility] Pwbbpjw7430-63-81 16:53:32* Test Item Value Reference Range Interpretation Comme nts POC Glu (test code = 4461964284) 128 mg/dL 70-99 H POC Performing Location (sushil t code = 0558462213) C3 MED Lab Interpretation (test cod e = 01441-0) Abnormal [facility] Xkgfujh7500-95-13 16:52:55* Test Item Value Reference Range Interpretation Comme nts POC Glu (test code = 8997913488) 89 mg/dL 70-99 POC Glu Comment 1 (test code = 8848171294) Notified RN/MD POC Performing Location (sushil t code = 3859261746) C3 MED [facility] Ctetlbj7570-91-91 15:49:05* Test Item Value Reference Range Interpretation Comme nts POC Glu (test code = 0090933880) 111 mg/dL 70-99 H POC Performing Location (sushil t code = 3303138831) C2 MICU Lab Interpretation (test cod e = 88008-0) Abnormal [facility] Atoyhkd4428-33-26 11:51:01* Test Item Value Reference Range Interpretation Comme nts POC Glu (test code = 3609138400) 135 mg/dL 70-99 H POC Glu Comment 1 (test code = 0755088148) Notified RN/MD POC Performing Location (sushil t code = 3789915795) SP8 HT ICU Lab Interpretation (test cod e = 57169-8) Abnormal [facility] Kwiszdb2689-55-80 07:52:19* Test Item Value Reference Range Interpretation Comme nts POC Glu (test code = 9851099134) 94 mg/dL 70-99 POC Performing Location (sushil t code = 1409372091) C2 MICU [facility] Ucljmko1996-52-91 23:28:28* Test Item Value Reference Range Interpretation Comme nts POC Glu (test code = 2732368271) 113 mg/dL 70-99 H POC Performing Location (sushil t code = 3580973312) C2 MICU Lab Interpretation (test cod e = 86379-3) Abnormal [facility] Ddwhpkc7801-19-80 20:12:35* Test Item Value Reference Range Interpretation Comme nts POC Glu (test code = 3216231479) 126 mg/dL 70-99 H POC Performing Location (sushil t code = 1437349340) C2 MICU Lab Interpretation (test cod e = 24286-5) Abnormal [facility] Pvoithu3966-96-69 17:46:44* Test Item Value Reference Range Interpretation Comme nts POC Glu (test code = 0637136453) 118 mg/dL 70-99 H POC Glu Comment 1 (test code = 8556899478) Notified RN/MD POC Performing Location (sushil t code = 2179701372) SP8 HT ICU Lab Interpretation (test cod e = 28255-3) Abnormal [facility] Fqtogrg0303-62-48 12:03:28* Test Item Value Reference Range Interpretation Comme nts POC Glu (test code = 5021374466) 119 mg/dL 70-99 H POC Glu Comment 1 (test code = 4811581929) Notified RN/MD POC Performing Location (sushil t code = 0638124229) C2 MICU Lab Interpretation (test cod e = 02182-7) Abnormal [facility] Knluyml0342-83-93 08:35:28* Test Item Value Reference Range Interpretation Comme nts POC Glu (test code = 2419859725) 88 mg/dL 70-99 POC Glu Comment 1 (test code = 0241157677) Notified RN/MD POC Performing Location (sushil t code = 0635470085) C2 MICU [facility] Aboobva1722-19-92 03:50:02* Test Item Value Reference Range Interpretation Comme nts POC Glu (test code = 2401867657) 117 mg/dL 70-99 H POC Performing Location (sushil t code = 5710235652) C2 MICU Lab Interpretation (test cod e = 33029-6) Abnormal [facility] 12 lead (arrhythmia)2024-08-04 00:26:59* Test Item Value Reference Range Interpretation Comme nts Ventricular Rate (test code = 1915378746) BPM Atrial Rate (test code = 1954302440) BPM CA Interval (test code = 0172055715) 144 ms QRS Duration (test code = 7603434919) 144 ms QT/QTc (test code = 3192716335) 380 ms QTc Calculation (test code = 1379854261) 532 ms P-Red Bud (test code = 3804075500) degrees R-Red Bud (test code = 8807053328) degrees T-Red Bud (test code = 5389570066) degrees RUSLAN (test code = RUSLAN) PXN (test code = PXN) [facility] Vhgkneg7764-36-15 23:41:32* Test Item Value Reference Range Interpretation Comme nts POC Glu (test code = 2756246134) 98 mg/dL 70-99 POC Glu Comment 1 (test code = 7415997038) Notified RN/MD POC Performing Location (sushil t code = 0249779098) [address] Nzuklep4566-80-62 20:08:29* Test Item Value Reference Range Interpretation Comme nts POC Glu (test code = 5795442599) 81 mg/dL 70-99 POC Glu Comment 1 (test code = 4291597575) Notified RN/MD POC Performing Location (sushil t code = 2258876543) [address]horacic [address] (TTE) ggoxzcwe6173-94-45 16:06:00* Test Item Value Reference Range Interpretation Comme nts RVOT Vmean (test code = 8985354819) 0.72 m/s LA Vol I (A4C) BSA (test code = 2968626905) 19.2 ml/m2 LVOT Vmax/AV Vmax (test code = 4558747533) 0.75 {ratio} Ao Root diam diastole (test code = 2149964176) 39 mm LVOT Vmean (test code = 5214476433) 0.72 m/s LV SV (A4C) (test code = 1893238901) 108 ml LV SI (A4C) (test code = 2991041233) 46 ml/m2 LVLs (A4C) (test code = 7892381248) 73.7 mm LVLd (A4C) (test code = 5279721274) 92 mm PV mn jessica (test code = 5829430020) 0.68 m/s LV EDV A4C (test code = 3989941875) 140 mL LA area A4C (test code = 0127686991) 18.8 cm2 LV ESV A4C (test code = 7228572202) 32 mL MV max jessica (test code = 3408688534) 1.33 cm/s TAPSE (test code = 1513471663) 23 mm IVC size (test code = 7119508718) 19 mm MV mn jessica (test code = 4770043681) 1.01 m/s LV est EF (test code = 8538319088) 76 % MV A pk jessica (test code = 9160930343) 1.2 m/s MV PHT (test code = 6212417864) 121 ms MV VTI (test code = 8644458073) 38.8 cm MV E pk jessica (test code = 7812207466) 1.06 m/s PV mn grad (test code = 1902130010) mmHg MV pk grad (test code = 5415255131) mmHg AV pk grad (test code = 3131868789) mmHg LV stroke vol (test code = 1976748732) 86 ml RVOT VTI (test code = 6428643535) 18.9 cm RVOT pk jessica (test code = 4133911365) 0.96 m/s AV VTI (test code = 8554628082) 27.2 cm AV pk jessica (test code = 8086131348) 1.42 m/s LVOT VTI (test code = 9563151407) 22.7 cm LVOT pk jessica (test code = 0079039766) 1.06 m/s LVOT area (test code = 5985353524) 3.8 cm2 LVOT diam (test code = 6909313653) 22 mm MV DT (test code = 7500069820) 413 ms MV e' lateral jessica (test code = 9899636779) 10.6 cm/s MV E/A ratio (test code = 1690956710) PV pk grad (test code = 2855132909) mmHg MV area cont eq (test code = 2384280939) 2.22 cm2 MV area PHT (test code = 8978855873) 1.82 cm2 MV mn grad (test code = 2510930133) mmHg LVOT pk grad (test code = 9252822977) mmHg AV area planimetry (test code = 5323790460) 3.17 cm2 AV mn grad (test code = 9288198460) mmHg RVOT mn grad (test code = 3672051624) mmHg RVOT pk grad (test code = 3866903864) mmHg MV E/e' septal (test code = 9038022878) AV area pk jessica (test code = 8998151760) 2.84 cm2 AV area cont VTI (test code = 8585170495) 3.17 cm2 LVOT mn grad (test code = 7511157043) mmHg LV A4C EF (test code = 2309087616) 77 % AV mn jessica (test code = 9885786516) 1.05 m/s LVPWd (test code = 1367289321) 12 mm LA size (test code = 6887485790) 39 mm IVC prox (test code = 9907748019) 19.274347561848870 cm Fractional Shortening 2D (test code = 4040258201) 45 % LVIDs (test code = 7631278979) 25 mm IVSd (test code = 1939685267) 13 mm LVIDd (test code = 0644513186) 44 mm PV pk jessica (test code = 2338294256) 1.06 m/s PV VTI (test code = 1950563) 18.8 cm MV E/e' lateral (test code = 9770311) MV e' septal jessica (test code = 9620127) 6.96 cm/s LV ESV 2D (test code = 7862745) 21.2 mL LV EDV 2D (test code = 3710444) 89.1 mL IVSd 2D (test code = 9160316) 12.930519509519107 cm BSA (test code = 4648225242) 2.42 m2 Radiology Study observation (narrative) (test code = 46349-1) RUSLAN (test code = RUSLAN) [facility] Phwdbrf5798-32-64 16:05:59* Test Item Value Reference Range Interpretation Comme nts POC Glu (test code = 7355864078) 78 mg/dL 70-99 POC Performing Location (sushil t code = 8558681437) [address] Bdwfwnq7407-74-18 12:31:34* Test Item Value Reference Range Interpretation Comme nts POC Glu (test code = 2549000436) 90 mg/dL 70-99 POC Performing Location (sushil t code = 9862471926) [address] Iudqllr1532-32-16 08:10:31* Test Item Value Reference Range Interpretation Comme nts POC Glu (test code = 5931964115) 102 mg/dL 70-99 H POC Performing Location (sushil t code = 9689351641) [address] Lab Interpretation (test cod e = 28347-9) Abnormal [facility] Utmxoyt7929-03-23 04:19:10* Test Item Value Reference Range Interpretation Comme [facility] POC Glu (test code = 0256984220) 109 mg/dL 70-99 H POC Performing Location (sushil t code = 9054792966) SP8 HT ICU Lab Interpretation (test cod e = 92793-4) Abnormal [facility] Epudren4822-53-74 03:39:09* Test Item Value Reference Range Interpretation Comme [facility] POC Glu (test code = 4679255980) 122 mg/dL 70-99 H POC Performing Location (sushil t code = 5644811616) C2 MICU Lab Interpretation (test cod e = 40476-9) Abnormal [facility] Arterial Blood Gas and Basic Ertim2699-75-73 03:38:26* Test Item Value Reference Range Interpretation Comme nts POC A Temp (test code = 2086730297) DegC POC A Source (test code = 4693302570) ART POC A pH (test code = 2744-1) 7.35-7.45 POC A PCO2 (test code = 2019-) See_Comment [Automated messa ge] The system which [...] POC A Hgb Tot (test code = 38319-9) 12.7 g/dL 13.7-17.5 L POC A Hct (calc) (test code = 00346-3) 38 % 40.1-51.0 L POC A Na (test code = 94606-4) See_Comment [Automated messa ge] The system which generated this result transmitted reference range: 135 - 145 mEq/L. The reference range was not used to interpret this result as normal/abnormal. POC A K (test code = 5109816) See_Comment [Automated messa ge] The system which generated this result transmitted reference range: 3.5 - 5.1 mEq/L. The reference range was not used to interpret this result as normal/abnormal. POC Chloride (test code = 6680517) See_Comment [Automated messa ge] The system which [...] POC A Ca Ion (test code = 11462-4) See_Comment [Automated messa ge] The system which generated this result transmitted reference range: 1.05 - 1.25 mMol/L. The reference range was not used to interpret this result as normal/abnormal. POC A Ca Ion (7.4) (test code = 8182786715) 1.15 mmol/L 1.05-1.25 POC A Mech R (bpm) (test code = 7639311481) bpm POC A Mech VT (test code = 0271298599) 450 mL POC A PEEP (test code = 3224109891) cmH20 POC A %FIO2 (test code = 9109823961) 40 % POC Performing Location (test code = 4748705939) [facility] Lab Interpretation (test code = 15536-2) Abnormal [facility] Arterial Blood Gas and Basic Btopm5402-39-61 23:04:49* Test Item Value Reference Range Interpretation Comme nts POC A Temp (test code = 5108237131) DegC POC A Source (test code = 7542829482) ART POC A pH (test code = [...] POC A Hgb Tot (test code = 70748-8) 13.2 g/dL 13.7-17.5 L POC A Hct (calc) (test code = 31739-1) 40 % 40.1-51.0 L POC A Na (test code = 02038-5) See_Comment [Automated messa ge] The system which generated this result transmitted reference range: 135 - 145 mEq/L. The reference range was not used to interpret this result as normal/abnormal. POC A K (test code = 1867056) See_Comment [Automated messa ge] The system which generated this result transmitted reference range: 3.5 - 5.1 mEq/L. The reference range was not used to interpret this result as normal/abnormal. POC Chloride (test code = 4700786) See_Comment [Automated messa ge] The system which [...] POC A Ca Ion (test code = 35077-9) See_Comment [Automated Vinspia ge] The system which generated this result transmitted reference range: 1.05 - 1.25 mMol/L. The reference range was not used to interpret this result as normal/abnormal. POC A Ca Ion (7.4) (test code = 3747488655) 1.15 mmol/L 1.05-1.25 POC A Mech R (bpm) (test code = 5544166617) bpm POC A Mech VT (test code = 3325559472) 500 mL POC A PEEP (test code = 2942880614) cmH20 POC A %FIO2 (test code = 1916709684) 40 % POC Performing Location (test code = 8636654285) [facility] Lab Interpretation (test code = 92141-2) Abnormal [facility] Crcefuj1870-15-07 22:58:53* Test Item Value Reference Range Interpretation Comme nts POC Glu (test code = 9350315809) 135 mg/dL 70-99 H POC Performing Location (sushil t code = 8278926824) C2 MICU Lab Interpretation (test cod e = 28255-5) [facility]normal [facility] 12:20:00* Test Item Value Reference Range Interpretation [...] (test code = AGAP) 12.7 10.0-20.0 N [facility] 12:20:00* Test Item Value Reference Range Interpretation [...] (test code = Hgb) 12.7 14.0-18.0 L [facility] AHFAWZS5433-91-87 21:10:00* Test Item Value Reference Range Interpretation Comme nts RBC product (test code = RBC product) Product available (10/21/2012 15:10:00) N ABO/Rh (test code = ABO/Rh) A POS Antibody Scrn (test code = Antibody Scrn) Negative (10/21/2012 15:10:00) N Ihsan Andino Consult Notes Date/Time Note Provider Source 2024-08-10 [...] Estimated Body mass index is 35.99 kg/m?. [place] body weight: 75.3 kg (165 lb 14.8 [...] (kcal/day) Energy Needs Upper Range: 2346 kcal/day [place] State Equation (Critically Ill Patients): 452 Minute [...] (Calculated): 2346 mL/kg/day Nutrition Physical Findings per hearing impaired teacher: Orientation Level: Oriented X4 O2 Delivery Method: [...] Status: No change from prior exam (08/10) [place]: Qvbj-io-nintqkyg deficit: Slight depression Assessment of Fat Status [...] Leblanc MS, RD, LD Thursday-Thursday office phone [phone] Thursday-Thursday pager [phone] Weekend/On-call pager [phone] Nutrition [facility] 2024-08-08 16:29:20 Interventional Radiology Consultation August [...] participate in the care of Abad Harrington. Real Estate Salesperson Physician [facility] 2024-08-06 13:27:25 PA Oncology Consult Note Chief Complaint Patient presents [...] Villa. Bill Chris MD PGY-5 Fellow, Hematology/Oncology [facility] I personally saw and examined Mr. Harrington [...] therapy thus psychosocial support service consults advised. Real Estate Salesperson Physician Ihsan Sina 2024-08-03 09:52:18 Associated Order(s): IP CONSULT TO [...] Dietary Orders (From admission, onward) Start Ordered 08/02/242247 NPO Diet Diet effective now 08/02/24 2248 [...] Estimated Body mass index is 35.99 kg/m?. [place] body weight: 75.3 kg (165 lb 14.8 [...] (kcal/day) Energy Needs Upper Range: 2346 kcal/day [place] State Equation (Critically Ill Patients): 452 Minute [...] (Calculated): 2346 mL/kg/day Nutrition Physical Findings per hearing impaired teacher: Orientation Level: Unable to assess O2 Delivery [...] Assessment of Muscle Status Date Assessed: 08/03/24 [place]: Srrl-iz-vvlitmua deficit: Slight depression Assessment of Fat Status [...] fentaNYL, 50-200 mcg/hr, Last Rate: 100 mcg/hr (08/03/24925) midazolam, 1-10 mg/hr, Last Rate: Stopped (08/02/24 9567) norepinephrine, 5-70 mcg/min, Last Rate: 7 mcg/min (08/03/24927) PRN medications: calcium gluconate, chlorhexidine, magnesium sulfate, [...] estimated needs met: Marta Hameed MS RD [facility] M-F Pager: [phone] Weekend/On-call pager: [phone] Nutrition [facility] History and Physical Notes Date/Time Note [...] real name is Abad Harrington and 1955. Patient History Surgical History: Recent [...] spent performing invasive procedures. 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 pilot helper Department of Pulmonary, Critical Care and Sleep Medicine [facility] Pulmonary Disease Physician [facility] Procedure Notes Date/Time Note Provider Source 2024-08-09 11:41:21 Interventional Radiology Brief Postprocedure Note Procedure: IR body biopsy lymph node Preprocedure Diagnosis: Lymphadenopathy Postprocedure Diagnosis: Lymphadenopathy Staff: Staff Role Jessica Falcon MD Marketing Segment Manager Kelly Bowman Clutch Inspector Joana Chaparro Clutch Inspector Gary Agosto, security rover Nurse Georgie Aguayo MD Radiologist Bay Orellana, security rover Nurse Description of procedure: Ultrasound guided right [...] Falcon MD, PGY4 Department of Interventional Radiology Real Estate Salesperson Physician [facility] 2024-08-02 22:10:10 Urology Procedure Note Pre-procedure Diagnosis: [...] procedure) Laney Jimenez MD Urologic Surgery PGY-3 [facility] [id number] Urology Physician Ihsan Andino Notes Date/Time Note Provider Source 2024-11-06 16:30:00 [id number] [facility] [address] [place], [place] [address] PATIENT NAME: ABAD HARRINGTON ADMIT DATE: 10/01/24 ACCOUNT NO: [id number] DISCHARGE DATE: 10/15/24 ROOM NO: E.[facility] REPORT TYPE: 360 - QUERY RESPONSE DOCUMENT DATE OF : 55 AGE: 69 SEX: M ADMITTING PHYSICIAN:Luisa Vincent MD ATTENDING PHYSICIAN:Luisa Vincent MD Provider Query QUERY TEXT: Condition General 360MD Query related questions should be directed to: ?[place] Query Helpline [phone]? Based on your clinical judgement can you [...] PM at 1630 PATIENT NAME: ABAD HARRINGTON [facility] 2024-10-15 14:44:00 [facility] ([facility]) Pulmonology Progress Note REPORT#:[id number] REPORT STATUS: Signed REPORT INITIALIZATION DATE:10/15/24 TIME: 1444 PATIENT: ABAD HARRINGTON UNIT #: [id number] [facility] AGE: 69 SEX: M ATTEND: [...] 109/65 10/15 111 B/P Mean 79.7 10/15 111 Temp 98.2 10/15 1115 Pulse 84 10/15 [...] Musculoskeletal: full range of motion, normal inspection Neuro/EMERGENCY PHYSICIAN: alert Skin: dry, intact Lymphatics: axilla normal, [...] Follow cultures. pending dispo at 1445 RPT #:[id number] END OF REPORT [facility] 2024-10-15 12:16:00 [facility] ([facility] Hospitalist Discharge Summary REPORT#:[id number] REPORT STATUS: Signed REPORT INITIALIZATION DATE:10/15/24 TIME: 1215 PATIENT: ABAD HARRINGTON UNIT #: [id number] ROOM/BED: [place] [address] : 55 AGE: 69 SEX: M ATTEND: Luisa Vincent MD ADM AUTHOR: Lilly Torres 2ND GRADE TEACHER REPT SERVICE DT/TIME: 10/15/24 1216 * ALL [...] mellitus type 2 Sliding scale insulin- D'cd 12.23 Monitor closely Discussed with charge nurse DVT [...] mellitus type 2 Sliding scale insulin- D'cd 12.23 Monitor closely Discussed with charge nurse DVT [...] Musculoskeletal: full range of motion, normal inspection Neuro/EMERGENCY PHYSICIAN alert, oriented X 2, CNII-XII intact Skin: Lower extremity chronic changes Psychiatry: AMS Discharge Instructions PCP Discharge to: Home Health wPlan of Care Additional Discharge Routines: PCP Follow-Up, Correctional Supervising Cook Follow-Up Diet: Resume Home Diet/Feeds Follow-up Appointments PCP follow-up: PCP: Undefined Provider PCP follow up timeframe: In 1-2 weeks Consulting provider 1: Provider 1: Hiro Hoang MD Specialty: Urology at 1218 at 1110 RPT #:[id number] END OF REPORT [facility] 2024-10-15 10:54:00 [facility] Gastroenterology Progress Note REPORT#:[id number] REPORT STATUS: Signed REPORT INITIALIZATION DATE:10/15/24 TIME: 1054 PATIENT: ABAD HARRINGTON UNIT #: [id number] ROOM/BED: [place] [address] : 55 AGE: 69 SEX: M ATTEND: Luisa Vincent MD ADM AUTHOR: Ro Vickers REPT SERVICE DT/TIME: 10/15/24 1054 * ALL edits or amendments must be made on the electronic/computer document * AleeRo 10/15/24 1054: Subjective Chief complaint: denies n/v/abd [...] written above at 1057 at 1057 RPT #:[id number] END OF REPORT [facility] 2024-10-14 18:23:00 [facility] ([facility] Urology Progress Note REPORT#:[id number] REPORT STATUS: Signed REPORT INITIALIZATION DATE:10/14/24 TIME: 1822 PATIENT: ABAD HARRINGTON UNIT #: [id number] ROOM/BED: [place] [address] : 55 AGE: 69 SEX: M ATTEND: [...] Mean 80.1 10/14 1557 Temp 98.6 10/14 155 Pulse 89 10/14 155 Resp 16 10/14 155 O2 Delivery Nasal cannula 10/14 0945 O2 [...] phimosis, buried penis, bilateral descended testes, [address] patent and draining pink-tinged [...] meatus. Patient is currently with an 18 Burkinan Ornelas. Patient reports he has had gross hematuria in the past and this often resolves with time. -Recommend continued hydration -Manually irrigate catheter as needed for nondraining Ornelas - Hold AC/AP at this time - Patient will need output patient evaluation for gross hematuria Hiro Hoang MD [facility] at 9528 RPT #:[id number] END OF REPORT [facility] 2024-10-14 14:07:00 [facility] ([facility] Pulmonology Progress Note REPORT#:[id number] REPORT STATUS: Signed REPORT INITIALIZATION DATE:10/14/24 TIME: 1406 PATIENT: ABAD HARRINGTON UNIT #: [id number] ROOM/BED: [place] [address] : 55 AGE: 69 SEX: M ATTEND: [...] Musculoskeletal: full range of motion, normal inspection Neuro/EMERGENCY PHYSICIAN: alert Skin: dry, intact Lymphatics: axilla normal, [...] cultures. hematuria today PT/OT at 1408 RPT #:[id number] END OF REPORT [facility] 2024-10-14 10:17:00 [facility] Acute Rehab Progress Note REPORT#:[id number] REPORT STATUS: Signed REPORT INITIALIZATION DATE:10/14/24 TIME: 101 PATIENT: ABAD HARRINGTON UNIT #: [id number] ROOM/BED: [place] [address] : 55 AGE: 69 SEX: M ATTEND: [...] B/P Mean 81.4 10/14 0631 Temp 98.2 12/27 0631 Pulse 90 10/14 631 Resp 16 10/14 631 24 hour I O ending at 0700: [...] participate with inpatient rehab. at 1019 RPT #:[id number] END OF REPORT [facility] 2024-10-14 08:11:00 [facility] ([facility] Hospitalist Progress Note REPORT#:[id number] REPORT STATUS: Signed REPORT INITIALIZATION DATE:10/14/24 TIME: 810 PATIENT: ABAD HARRINGTON UNIT #: [id number] ROOM/BED: [place] [address] : 55 AGE: 69 SEX: M ATTEND: [...] 0313 37.2 98 17 108/68 81.7 93 10/138 91 Nasal 1 cannula 10/135 37.1 95 [...] Musculoskeletal: full range of motion, normal inspection Neuro/EMERGENCY PHYSICIAN alert, oriented X 2, CNII-XII intact Skin: [...] Ornelas catheter at 0917 at 1356 RPT #:[id number] END OF REPORT [facility] 2024-10-14 07:49:00 [facility] ([facility]) Gastroenterology Progress Note REPORT#:[id number] REPORT STATUS: Signed REPORT INITIALIZATION DATE:10/14/24 TIME: 748 PATIENT: ABAD HARRINGTON UNIT #: [id number] ROOM/BED: [place] [address] : 55 AGE: 69 SEX: M ATTEND: [...] 631 Pulse 90 10/14 631 Resp 16 12/27 0631 O2 Flow Rate 1 10/13 2328 24 [...] continue to monitor the patient's progress at 0752 RPT #:[id number] END OF REPORT [facility] 2024-10-13 17:13:00 [facility] Gastroenterology Progress Note REPORT#:[id number] REPORT STATUS: Signed REPORT INITIALIZATION DATE:10/13/24 TIME: 1712 PATIENT: ABAD HARRINGTON UNIT #: [id number] ROOM/BED: [place] [address] : 55 AGE: 69 SEX: M ATTEND: Luisa Vincent MD ADM AUTHOR: Suzy Ramirez 2ND GRADE TEACHER REPT SERVICE DT/TIME: 10/13/241712 * ALL edits [...] Result Date Time Pulse Ox 91 10/13 161 B/P 130/64 10/13 161 B/P Mean 85.9 10/13 161 Temp 36.8 10/13 161 Pulse 92 10/13 1612 Resp 16 10/13 161 O2 Delivery Nasal cannula 10/13 112 O2 Flow Rate 1 10/13 1122 FiO2 32 10/12 0700 24 hour I [...] written above at 1716 at 1057 RPT #:[id number] END OF REPORT [facility] 2024-10-13 14:05:00 [facility] ([facility] Pulmonology Progress Note REPORT#:[id number] REPORT STATUS: Signed REPORT INITIALIZATION DATE:10/13/24 TIME: 1405 PATIENT: ABAD HARRINGTON UNIT #: [id number] ROOM/BED: [place] [address] : 55 AGE: 69 SEX: M ATTEND: Luisa Vincent MD ADM AUTHOR: Arsh Tamez MD REPT SERVICE DT/TIME: 10/13/24 0475 * ALL edits or amendments must be made on the electronic/computer document * Subjective Chief complaint: AMS. Comments: moderate hematuria apapears confuseD? off oxygen ROS: no n/v/cp/dimas Objective General VS/I O: Last Documented: Result Date Time Pulse Ox 92 10/13 112 O2 Delivery Nasal cannula 10/13 1122 O2 Flow Rate 1 10/13 112 B/P 106/53 10/13 07 B/P Mean 70.8 10/13 07 Temp 97.9 10/13 711 Pulse 89 10/13 07 Resp 16 10/13 07 FiO2 32 10/12 [...] Musculoskeletal: full range of motion, normal inspection Neuro/EMERGENCY PHYSICIAN: alert Skin: dry, intact Lymphatics: axilla normal, [...] hematuria today PT/OT pending at 1408 RPT #:[id number] END OF REPORT [facility] 2024-10-13 11:59:00 [id number] [place] [address] PATIENT NAME: ABAD HARRINGTON ADMIT DATE: 10/01/24 ACCOUNT NO: [id number] DISCHARGE DATE: ROOM NO: E.432 REPORT TYPE: CONSULTATION REPORT DATE OF : 55 AGE: 69 SEX: M ADMITTING PHYSICIAN:Luisa Vincent MD ATTENDING PHYSICIAN:Luisa Vincent MD CONSULTATION DATE: 10/13/2024 ROOM NUMBER: 432. HISTORY OF PRESENT ILLNESS: This is a 69-year-old gentleman, who was originally admitted to [facility] on 10/01/2024 after transfer from [facility] with altered mental status. [...] Date Transcribed: 10/13/2024 15:37:48 RJ/ELLY/ROSALIND Receipt ID: [id number] Authenticated by Torsten Dyson On 10/14/2024 10:52:56 AM at 1052 PATIENT NAME: ABAD HARRINGTON [facility] 2024-10-13 11:03:00 [facility] Urology Progress Note REPORT#:[id number] REPORT STATUS: Signed REPORT INITIALIZATION DATE:10/13/24 TIME: 1102 PATIENT: ABAD HARRINGTON UNIT #: [id number] ROOM/BED: [place] [address] : 55 AGE: 69 SEX: M ATTEND: [...] who presented as a transfer from the [facility] for sepsis and bacteremia. He is [...] Pulse 89 10/13 711 Resp 16 10/13 711 FiO2 32 10/12 07 24 hour I O ending at [...] catheter in situ, hematuria Extremities: no edema Neuro/EMERGENCY PHYSICIAN: alert, oriented X 3 Free text obj [...] phimosis this would not pass. A 16 Burkinan catheter was also attempted and also would not pass through his fibrotic foreskin. A straight sensor wire was passed blindly through the phimosis into the meatus and determined to be in the bladder. An 18 ho-chunk catheter was attempted be passed over the sensor wire however due to what appears to be meatal stenosis would not pass. He was then given a dose of 1 mg of Ativan to assist with his agitation. We then serially dilated his meatus using Ghanshyam dilators from 8 Burkinan to 22 Burkinan. The 18 Burkinan catheter was then passed over the sensor [...] and is in agreement. at 1108 RPT #:[id number] END OF REPORT [facility] 2024-10-13 07:44:00 [facility] ([facility]) Hospitalist Progress Note REPORT#:[id number] REPORT STATUS: Signed REPORT INITIALIZATION DATE:10/13/24 TIME: 743 PATIENT: ABAD HARRINGTON UNIT #: [id number] ROOM/BED: [place] [address] : 55 AGE: 69 SEX: M ATTEND: Luisa Vincent MD ADM AUTHOR: Thea Clark MD R1 REPT SERVICE DT/TIME: 10/13/24 07 * ALL edits or amendments must be [...] 0354 36.8 90 16 105/63 76.8 94 10/123 Nasal 4 cannula 10/12 2312 36.6 97 [...] Musculoskeletal: full range of motion, normal inspection Neuro/EMERGENCY PHYSICIAN alert, oriented X 2, CNII-XII intact Skin: [...] mellitus type 2 Sliding scale insulin- D'cd 12.23 Monitor closely Discussed with charge nurse DVT prophylaxis with Lovenox 10.13- Transferred to floor yesterday; PT/OT pending eval. Pt had hematuria- Ornelas drained 2600 hematuria. Per urology In the event the patient requires further bladder irrigation or continuous he likely will require cystoscopic placement of a three-way Ornelas catheter at 1138 at 1320 RPT #:[id number] END OF REPORT [facility] 2024-10-12 15:39:00 [facility] Pulmonology Progress Note REPORT#:[id number] REPORT STATUS: Signed REPORT INITIALIZATION DATE:10/12/24 TIME: 1538 PATIENT: ABAD HARRINGTON UNIT #: [id number] ROOM/BED: [place] [address] : 55 AGE: 69 SEX: M ATTEND: Luisa Vincent MD ADM AUTHOR: Arsh Tamez MD REPT SERVICE DT/TIME: 10/12/241538 * ALL edits or amendments must be [...] Musculoskeletal: full range of motion, normal inspection Neuro/EMERGENCY PHYSICIAN: alert Skin: dry, intact Lymphatics: axilla normal, [...] appears very weak. rehab? at 1541 RPT #:[id number] END OF REPORT [facility] 2024-10-12 11:12:00 [facility] Gastroenterology Progress Note REPORT#:[id number] REPORT STATUS: Signed REPORT INITIALIZATION DATE:10/12/24 TIME: 111 PATIENT: ABAD HARRINGTON UNIT #: [id number] ROOM/BED: [place] [address] : 55 AGE: 69 SEX: M ATTEND: [...] monitor the patient's progress at 1113 RPT #:[id number] END OF REPORT [facility] 2024-10-12 07:03:00 [facility] ([facility] Hospitalist Progress Note REPORT#:[id number] REPORT STATUS: Signed REPORT INITIALIZATION DATE:10/12/24 TIME: 702 PATIENT: ABAD HARRINGTON UNIT #: [id number] ROOM/BED: [place] [address] : 55 AGE: 69 SEX: M ATTEND: [...] Musculoskeletal: full range of motion, normal inspection Neuro/EMERGENCY PHYSICIAN alert, oriented X 2, CNII-XII intact Skin: [...] is better at 0853 at 1320 RPT #:[id number] END OF REPORT [facility] 2024-10-11 14:35:00 [facility] ([facility]) Pulmonology Progress Note REPORT#:[id number] REPORT STATUS: Signed REPORT INITIALIZATION DATE:10/11/24 TIME: 1434 PATIENT: ABAD HARRINGTON UNIT #: [id number] ROOM/BED: [place] [address] : 55 AGE: 69 SEX: M ATTEND: Luisa Vincent MD ADM AUTHOR: Arsh Tamez MD REPT SERVICE DT/TIME: 10/11/241434 * ALL edits or amendments must be [...] Musculoskeletal: full range of motion, normal inspection Neuro/EMERGENCY PHYSICIAN: alert Skin: dry, intact Lymphatics: axilla normal, [...] 10.4 mg/dL) 7.8 L Laboratory Tests 10/11 438 Hematology WBC (4.5 - 11.0 K/mm3) 6.6 [...] (Auto) (23.0 - 38.0 %) 17.4 L Harmon % (Auto) (1.0 - 10.0 %) 11.2 H Eos % (Auto) (1.0 - 5.0 %) 3.6 Baso % (Auto) (0.0 - 1.0 %) 1.1 H Neut # (Auto) (2.4 - 6.3 K/mm3) 4.2 Lymph # (Auto) (1.2 - 4.0 K/mm3) 1.2 Harmon # (Auto) (0.0 - 0.6 K/mm3) 0.7 [...] but appears very weak at 1436 RPT #:[id number] END OF REPORT [facility] 2024-10-11 10:28:00 [facility] ([facility]) Gastroenterology Progress Note REPORT#:[id number] REPORT STATUS: Signed REPORT INITIALIZATION DATE:10/11/24 TIME: 1027 PATIENT: ABAD HARRINGTON UNIT #: [id number] ROOM/BED: [place] [address] : 55 AGE: 69 SEX: M ATTEND: Luisa Vincent MD ADM AUTHOR: Ro Vickers SURGICAL SUPPLY ASSISTANT REPT SERVICE DT/TIME: 10/11/24 1028 * ALL edits or amendments must be made on the electronic/computer document * Ro Vickers 10/11/24 1028: Subjective Chief complaint: asking to go home denies n/v/abd pain Review of Systems All systems rev neg: except as marked Objective General VS/I O: Last Documented: Result Date Time O2 Delivery Nasal cannula 10/11 08 O2 Flow Rate 3 10/11 0830 Temp 97.9 10/11 0815 Pulse Ox 93 10/11 0800 B/P 117/65 10/11 0800 B/P Mean 86 10/11 0800 Pulse 91 10/11 0800 Resp 17 10/11 0701 FiO2 32 10/11 0700 24 hour I [...] 10.4 mg/dL) 7.8 L Laboratory Tests 10/11 1317 Hematology WBC (4.5 - 11.0 K/mm3) [...] (Auto) (23.0 - 38.0 %) 17.4 L Harmon % (Auto) (1.0 - 10.0 %) 11.2 H Eos % (Auto) (1.0 - 5.0 %) 3.6 Baso % (Auto) (0.0 - 1.0 %) 1.1 H Neut # (Auto) (2.4 - 6.3 K/mm3) 4.2 Lymph # (Auto) (1.2 - 4.0 K/mm3) 1.2 Harmon # (Auto) (0.0 - 0.6 K/mm3) 0.7 [...] Report Impression - Status: SIGNED Entered: 10/10/2024 1724 IMPRESSION: Technically successful ultrasound-guided diagnostic and therapeutic paracentesis. Impression By: [email or web address] - Steve Hernández M.D. Diagnosis, Assessment Plan [...] written above at 1030 at 1027 RPT #:[id number] END OF REPORT [facility] 2024-10-11 09:04:00 [facility] ([facility]) Hospitalist Progress Note REPORT#:[id number] REPORT STATUS: Signed REPORT INITIALIZATION DATE:10/11/24 TIME: 903 PATIENT: ABAD HARRINGTON UNIT #: [id number] ROOM/BED: [place] [address] : 55 AGE: 69 SEX: M ATTEND: [...] 720 Output Total 950 3705 Balance -670 2985 Intake, Oral 280 720 Output, 0 Estimated [...] well Abdomen: tenderness Results Findings/Data: Laboratory Tests 10/118 Chemistry Sodium (136 - 145 mmol/L) 138 [...] 10.4 mg/dL) 7.8 L Laboratory Tests 10/11 1317 Hematology WBC (4.5 - 11.0 K/mm3) [...] (Auto) (23.0 - 38.0 %) 17.4 L Harmon % (Auto) (1.0 - 10.0 %) 11.2 H Eos % (Auto) (1.0 - 5.0 %) 3.6 Baso % (Auto) (0.0 - 1.0 %) 1.1 H Neut # (Auto) (2.4 - 6.3 K/mm3) 4.2 Lymph # (Auto) (1.2 - 4.0 K/mm3) 1.2 Harmon # (Auto) (0.0 - 0.6 K/mm3) 0.7 [...] Musculoskeletal: full range of motion, normal inspection Neuro/EMERGENCY PHYSICIAN alert, oriented X 2, CNII-XII intact Skin: [...] with charge nurse DVT prophylaxis with Lovenox 10.11- 10/11: s/p paracentesis 2.4L of ascitic fluid removed. at 1140 at 1320 RPT #:[id number] END OF REPORT [facility] 2024-10-10 13:57:00 [facility] ([facility] Pulmonology Progress Note REPORT#:[id number] REPORT STATUS: Signed REPORT INITIALIZATION DATE:10/10/24 TIME: 1356 PATIENT: ABAD HARRINGTON UNIT #: [id number] ROOM/BED: [place] [address] : 55 AGE: 69 SEX: M ATTEND: [...] 10/10 1206 O2 Delivery Nasal cannula 10/10 120 O2 Flow Rate 3 10/10 1206 Temp [...] Musculoskeletal: full range of motion, normal inspection Neuro/EMERGENCY PHYSICIAN: alert Skin: dry, intact Lymphatics: axilla normal, inguinal normal, neck normal, no lymphadenopathy Psychiatry: normal affect, normal judgment/insight, normal mood Results Findings/Data: Laboratory Tests 10/10/24 0427: [Embedded Image Not Available] Laboratory Tests 10/09 [...] 10.4 mg/dL) 8.1 L Laboratory Tests 10/10 0427 Hematology WBC (4.5 - 11.0 K/mm3) 7.2 [...] (Auto) (23.0 - 38.0 %) 16.6 L Harmon % (Auto) (1.0 - 10.0 %) 10.3 H Eos % (Auto) (1.0 - 5.0 %) 3.1 Baso % (Auto) (0.0 - 1.0 %) 1.0 Neut # (Auto) (2.4 - 6.3 K/mm3) 4.7 Lymph # (Auto) (1.2 - 4.0 K/mm3) 1.2 Harmon # (Auto) (0.0 - 0.6 K/mm3) 0.7 [...] Continue diuresis as tolerated at 1358 RPT #[id number] END OF REPORT [facility] 2024-10-10 11:29:00 [facility] ([facility] Gastroenterology Progress Note REPORT#:[id number] REPORT STATUS: Signed REPORT INITIALIZATION DATE:10/10/24 TIME: 1128 PATIENT: ABAD HARRINGTON UNIT #: [id number] ROOM/BED: [place] [address] : 55 AGE: 69 SEX: M ATTEND: [...] 10/10 0847 O2 Delivery Nasal cannula 10/10 08 O2 Flow Rate 3 10/10 08 Temp 98.1 10/10 0847 B/P 123/58 10/09 [...] monitor the patient's progress at 1130 RPT #:[id number] END OF REPORT [facility] 2024-10-10 09:17:00 [facility] ([facility]) Hospitalist Progress Note REPORT#:[id number] REPORT STATUS: Signed REPORT INITIALIZATION DATE:10/10/24 TIME: 916 PATIENT: ABAD HARRINGTON UNIT #: [id number] ROOM/BED: [facility] : 55 AGE: 69 SEX: M ATTEND: Luisa Vincent MD ADM AUTHOR: Thea Clark MD R1 REPT SERVICE DT/TIME: 10/10/24916 * ALL edits or amendments must be [...] Musculoskeletal: full range of motion, normal inspection Neuro/EMERGENCY PHYSICIAN alert, oriented X 2, CNII-XII intact Skin: [...] type 2 Sliding scale insulin- D'cd 10.[address] Tamez Monitor closely Discussed with charge nurse DVT prophylaxis with Lovenox at 1148 at 1411 RPT #[id number] END OF REPORT [facility] 2024-10-09 18:43:00 [facility] ([facility] Gastroenterology Progress Note REPORT#:[id number] REPORT STATUS: Signed REPORT INITIALIZATION DATE:10/09/24 TIME: 1842 PATIENT: ABAD HARRINGTON UNIT #: [id number] ROOM/BED: [place] [address] : 55 AGE: 69 SEX: M ATTEND: Luisa Vincent MD ADM AUTHOR: Suzy Ramirez 2ND GRADE TE[employer]ER REPT SERVICE DT/TIME: 10/09/241842 * ALL edits [...] written above at 1844 at 1027 RPT #:[id number] END OF REPORT [facility] 2024-10-09 13:54:00 [facility] ([facility] Pulmonology Progress Note REPORT#:[id number] REPORT STATUS: Signed REPORT INITIALIZATION DATE:10/09/24 TIME: 1354 PATIENT: ABAD HARRINGTON UNIT #: [id number] ROOM/BED: [place] [address] : 55 AGE: 69 SEX: M ATTEND: [...] 10/09 114 O2 Flow Rate 2 10/09 1145 Temp 97.8 10/09 114 Pulse 91 10/09 1145 Resp 16 10/09 114 24 hour I O ending at 0700: [...] Musculoskeletal: full range of motion, normal inspection Neuro/EMERGENCY PHYSICIAN: alert Skin: dry, intact Lymphatics: axilla normal, [...] 315 pounds at admission). at 1356 RPT #:[id number] END OF REPORT [facility] 2024-10-09 09:32:00 [facility] ([facility] Hospitalist Progress Note REPORT#:[id number] REPORT STATUS: Signed REPORT INITIALIZATION DATE:10/09/24 TIME: 931 PATIENT: ABAD HARRINGTON UNIT #: [id number] ROOM/BED: [place] [address] : 55 AGE: 69 SEX: M ATTEND: Luisa Vincent MD ADM AUTHOR: Ana María Velasquez MD REPT SERVICE DT/TIME: 10/09/2432 * ALL edits or amendments must be [...] Musculoskeletal: full range of motion, normal inspection Neuro/EMERGENCY PHYSICIAN alert, oriented X 2, CNII-XII intact Skin: [...] Lasix Hepatic encephalopathy on lactulose Alcoholism on [facility] protocol Diabetes mellitus type 2 Ornelas placed by urology 10/03 worsening pulmonary edema [facility] protocol no pain 10/04/2024 Acute hypoxic respiratory failure, 5 L nasal cannula 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 on IV Lasix, status post paracentesis October 03, 2024, 5.6 L removed, albumin given Hepatic encephalopathy on lactulose Alcoholism on [facility] protocol Bacteremia from other hospital, reportedly strep, [...] continue diuresis wean o2 at 0933 RPT #:[id number] END OF REPORT [facility] 2024-10-08 13:38:00 [facility] ([facility]) Pulmonology Progress Note REPORT#:[id number] REPORT STATUS: Signed REPORT INITIALIZATION DATE:10/08/24 TIME: 1337 PATIENT: ABAD HARRINGTON UNIT #: [id number] ROOM/BED: [place] [address] : 55 AGE: 69 SEX: M ATTEND: [...] Musculoskeletal: full range of motion, normal inspection Neuro/EMERGENCY PHYSICIAN: alert Skin: dry, intact Lymphatics: axilla normal, [...] 315 pounds at admission). at 1344 RPT #:[id number] END OF REPORT [facility] 2024-10-08 12:21:00 [facility] ([facility] Gastroenterology Progress Note REPORT#:[id number] REPORT STATUS: Signed REPORT INITIALIZATION DATE:10/08/24 TIME: 122 PATIENT: ABAD HARRINGTON UNIT #: [id number] ROOM/BED: [place] [address] : 55 AGE: 69 SEX: M ATTEND: Luisa Vincent MD ADM AUTHOR: Suzy Ramirez 2ND GRADE TEACHER REPT SERVICE DT/TIME: 10/08/24 1221 * ALL [...] written above at 1225 at 1027 RPT #:[id number] END OF REPORT [facility] 2024-10-08 10:11:00 [facility] ([facility] Hospitalist Progress Note REPORT#:[id number] REPORT STATUS: Signed REPORT INITIALIZATION DATE:10/08/24 TIME: 101 PATIENT: ABAD HARRINGTON UNIT #: [id number] ROOM/BED: [place] [address] : 55 AGE: 69 SEX: M ATTEND: [...] Musculoskeletal: full range of motion, normal inspection Neuro/EMERGENCY PHYSICIAN alert, oriented X 2, CNII-XII intact Skin: [...] continue abx PT OT at 1013 RPT #:[id number] END OF REPORT [facility] 2024-10-07 12:37:00 [facility] ([facility] Gastroenterology Progress Note REPORT#:[id number] REPORT STATUS: Signed REPORT INITIALIZATION DATE:10/07/24 TIME: 1237 PATIENT: ABAD HARRINGTON UNIT #: [id number] ROOM/BED: [place] [address] : 55 AGE: 69 SEX: M ATTEND: [...] O2 Delivery High flow nasal cannula 10/07 1215 O2 Flow Rate 6 10/07 1215 Temp [...] monitor the patient's progress at 1238 RPT #:[id number] END OF REPORT [facility] 2024-10-07 10:28:00 [facility] ([facility] Hospitalist Progress Note REPORT#:[id number] REPORT STATUS: Signed REPORT INITIALIZATION DATE:10/07/24 TIME: 1028 PATIENT: ABAD HARRINGTON UNIT #: [id number] ROOM/BED: [place] [address] : 55 AGE: 69 SEX: M ATTEND: [...] 10/07 0715 92 14 114/58 80 94 /20 0700 92 15 121/63 83 92 /20 0645 92 20 94/52 67 98 / 0630 90 16 93/54 70 98 /20 0600 92 13 115/66 85 98 10/07 0530 92 14 121/65 88 97 / 0500 92 21 125/68 91 97 /20 0430 93 17 118/62 83 100 10/07 [...] 10/07 10/07 10/07 10/06 10/06 0745 0430 0430 2011 1637 Chemistry Sodium (136 - 145 [...] - 10.4 mg/dL) 8.1 L Laboratory Tests 10/07 0430 Hematology WBC (4.5 - 11.0 K/mm3) [...] (Auto) (23.0 - 38.0 %) 20.5 L Harmon % (Auto) (1.0 - 10.0 %) 9.6 Eos % (Auto) (1.0 - 5.0 %) 8.0 H Baso % (Auto) (0.0 - 1.0 %) 1.0 Neut # (Auto) (2.4 - 6.3 K/mm3) 3.3 Lymph # (Auto) (1.2 - 4.0 K/mm3) 1.2 Harmon # (Auto) (0.0 - 0.6 K/mm3) 0.6 [...] Musculoskeletal: full range of motion, normal inspection Neuro/EMERGENCY PHYSICIAN alert, oriented X 2, CNII-XII intact Skin: [...] Lasix Hepatic encephalopathy on lactulose Alcoholism on [facility] protocol Diabetes mellitus type 2 Ornelas placed by urology 10/03 worsening pulmonary edema [facility] protocol no pain 10/04/2024 Acute hypoxic respiratory failure, 5 L nasal cannula 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 on IV Lasix, status post paracentesis October 03, 2024, 5.6 L removed, albumin given Hepatic encephalopathy on lactulose Alcoholism on [facility] protocol Bacteremia from other hospital, reportedly strep, [...] for aspiration cultures pending at 1030 RPT #:[id number] END OF REPORT [facility] 2024-10-07 10:12:00 [facility] ([facility] Pulmonology Progress Note REPORT#:[id number] REPORT STATUS: Signed REPORT INITIALIZATION DATE:10/07/24 TIME: 101 PATIENT: ABAD HARRINGTON UNIT #: [id number] ROOM/BED: [place] [address] : 55 AGE: 69 SEX: M ATTEND: [...] Result Date Time Pulse Ox 97 10/07 930 B/P 134/70 10/07 930 B/P Mean 95 10/07 930 Pulse 94 10/07 930 Resp 32 10/07 930 O2 Delivery High flow nasal cannula 10/07 075 O2 Flow Rate 6 10/07 075 Temp 98.0 10/07 075 24 hour I O ending at 0700: [...] Musculoskeletal: full range of motion, normal inspection Neuro/EMERGENCY PHYSICIAN: alert Skin: dry, intact Lymphatics: axilla normal, inguinal normal, neck normal, no lymphadenopathy Psychiatry: normal affect, normal judgment/insight, normal mood Results Findings/Data: Laboratory Tests 10/06/24 1329: [Embedded Image Not Available] 10/07/24 0430: [Embedded Image Not Available] 10/07/24 0430: [Embedded Image Not Available] Laboratory Tests 10/06 10/06 10/06 10/06 10/07 1125 1329 1637 2011 043 Chemistry Sodium (136 - 145 mmol/L) 144 [...] 10.4 mg/dL) 7.9 L Laboratory Tests 10/07 0430 Hematology WBC (4.5 - 11.0 K/mm3) [...] (Auto) (23.0 - 38.0 %) 20.5 L Harmon % (Auto) (1.0 - 10.0 %) 9.6 Eos % (Auto) (1.0 - 5.0 %) 8.0 H Baso % (Auto) (0.0 - 1.0 %) 1.0 Neut # (Auto) (2.4 - 6.3 K/mm3) 3.3 Lymph # (Auto) (1.2 - 4.0 K/mm3) 1.2 Harmon # (Auto) (0.0 - 0.6 K/mm3) 0.6 [...] 315 pounds at admission). at 1015 RPT #:[id number] END OF REPORT [facility] 2024-10-06 13:35:00 [facility] ([facility] Gastroenterology Progress Note REPORT#:[id number] REPORT STATUS: Signed REPORT INITIALIZATION DATE:10/06/24 TIME: 1334 PATIENT: ABAD HARRINGTON UNIT #: [id number] ROOM/BED: [place] [address] : 55 AGE: 69 SEX: M ATTEND: Luisa Vincent MD ADM AUTHOR: Maria Luz Veloz MD REPT SERVICE DT/TIME: 10/06/24 1335 * ALL edits or amendments must be made on the electronic/computer document * Subjective Chief complaint: confused Review of Systems All systems rev neg: except as marked Objective General VS/I O: Last Documented: Result Date Time Pulse Ox 99 10/06 1215 B/P 114/58 10/06 1215 B/P Mean 76 10/06 121 O2 Delivery High flow nasal cannula 10/06 121 O2 Flow Rate 7 10/06 121 Temp 98.2 10/06 1215 Pulse 98 10/06 [...] monitor the patient's progress at 1335 RPT #:[id number] END OF REPORT [facility] 2024-10-06 12:12:00 [facility] ([facility] Pulmonology Progress Note REPORT#:[id number] REPORT STATUS: Signed REPORT INITIALIZATION DATE:10/06/24 TIME: 1211 PATIENT: ABAD HARRINGTON UNIT #: [id number] ROOM/BED: [place] [address] : 55 AGE: 69 SEX: M ATTEND: [...] 146/76 10/06 806 B/P Mean 99 10/06 806 O2 Delivery Nasal cannula 10/06 806 O2 Flow Rate 7 10/06 806 Temp 98.0 10/06 806 Pulse 100 10/06 806 Resp 30 10/06 806 24 hour I O ending at 0700: [...] Musculoskeletal: full range of motion, normal inspection Neuro/EMERGENCY PHYSICIAN: alert Skin: dry, intact Lymphatics: axilla normal, inguinal normal, neck normal, no lymphadenopathy Psychiatry: abnl judgment/insight, normal mood Results Findings/Data: Laboratory Tests 10/06 629 Blood Gas Puncture Site RB ABG pH [...] 12.3 FiO2 (%) 52.0 Laboratory Tests 10/05 0747 1125 Chemistry POC Glucose (70 - 110 mg/dL) 142 H 156 H 136 H 128 H Radiology data: Recent Impressions: RADIOLOGY - XR CHEST 1 V 10/06 0603 Report Impression - Status: SIGNED Entered: 10/06/2024 6170 IMPRESSION: No significant interval change. Impression By: [...] abuse Hepatic encephalopathy lactulose q2h improving ammonia [facility] protocol 6. Pulmonary infiltrates likely aspiration pneumonia abx cont nebs and Mucinex s/p bronchoscopy 10/06. Follow cultures. at 1910 RPT #:[id number] END OF REPORT [facility] 2024-10-06 12:09:00 [facility] ([facility]) Bronchoscopy Post Proc Full REPORT#:[id number] REPORT STATUS: Signed REPORT INITIALIZATION DATE:10/06/24 TIME: 1209 PATIENT: ABAD HARRINGTON UNIT #: [id number] ROOM/BED: [place] [address] : 55 AGE: 69 SEX: M ATTEND: Luisa Vincent MD ADM AUTHOR: Fawad Jacobo MD REPT SERVICE DT/TIME: 10/06/24 1209 * ALL edits or amendments must be made on the electronic/computer document * Post Bronchoscopy Procedure Start date: 10/06/24 Start time: 1201 (End time 1206) Pre-procedure diagnosis: Aspiration pneumonia Acute hypoxemic respiratory failure Post-procedure diagnosis: Aspiration pneumonia Acute hypoxemic respiratory failure Procedure performed-bronchoscopy therapeutic bronchoscopy Performed by: Grecia Jacobo MD Scrap Burner(s): endoscopy staff, ICU nurse Findings: 1. Bloody [...] loss in ml's: none at 1212 RPT #:[id number] END OF REPORT [facility] 2024-10-06 09:33:00 [facility] ([facility] Hospitalist Progress Note REPORT#:[id number] REPORT STATUS: Signed REPORT INITIALIZATION DATE:10/06/24 TIME: 932 PATIENT: ABAD HARRINGTON UNIT #: [id number] ROOM/BED: [place] [address] : 55 AGE: 69 SEX: M ATTEND: Luisa Vincent MD ADM AUTHOR: Ana María Velasquez MD REPT SERVICE DT/TIME: 10/06/24 09 * ALL edits or amendments must be [...] Assessment completed: Results Findings/Data: Laboratory Tests 10/06 629 Blood Gas Puncture Site RB ABG pH [...] Musculoskeletal: full range of motion, normal inspection Neuro/EMERGENCY PHYSICIAN alert, oriented X 2, CNII-XII intact Skin: [...] Lasix Hepatic encephalopathy on lactulose Alcoholism on [facility] protocol Diabetes mellitus type 2 Ornelas placed by urology 10/03 worsening pulmonary edema [facility] protocol no pain 10/04/2024 Acute hypoxic respiratory failure, 5 L nasal cannula 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 on IV Lasix, status post paracentesis October 03, 2024, 5.6 L removed, albumin given Hepatic encephalopathy on lactulose Alcoholism on [facility] protocol Bacteremia from other hospital, reportedly strep, [...] abx for aspiration cultures pending at 0936 [facility] #:[id number] END OF REPORT [facility] 2024-10-05 13:32:00 [facility] Hospitalist Progress Note REPORT#:[id number] REPORT STATUS: Signed REPORT INITIALIZATION DATE:10/05/24 TIME: 1332 PATIENT: ABAD HARRINGTON UNIT #: [id number] ROOM/BED: [place] [address] : 55 AGE: 69 SEX: M ATTEND: Luisa Vincent MD ADM AUTHOR: Luisa Vincent MD REPT SERVICE DT/TIME: 10/05/24 7242 * ALL edits or amendments must be [...] Musculoskeletal: full range of motion, normal inspection Neuro/EMERGENCY PHYSICIAN alert, oriented X 2, CNII-XII intact Skin: [...] cultures PT when able at 1333 RPT #:[id number] END OF REPORT [facility] 2024-10-05 10:27:00 [facility] ([facility] Pulmonology Progress Note REPORT#:[id number] REPORT STATUS: Signed REPORT INITIALIZATION DATE:10/05/24 TIME: 102 PATIENT: ABAD HARRINGTON UNIT #: [id number] ROOM/BED: [place] [address] : 55 AGE: 69 SEX: M ATTEND: [...] Musculoskeletal: full range of motion, normal inspection Neuro/EMERGENCY PHYSICIAN: alert Skin: dry, intact Lymphatics: axilla normal, inguinal normal, neck normal, no lymphadenopathy Psychiatry: abnl judgment/insight, normal mood Results Findings/Data: Laboratory Tests 10/05/24 0354: [Embedded Image Not Available] 10/05/24 0354: [Embedded Image Not Available] Laboratory Tests 10/05 [...] 10/04 10/05 10/05 1131 1641 2004 353 0354 Chemistry Sodium (136 - 145 mmol/L) 141 [...] (Auto) (23.0 - 38.0 %) 20.5 L Harmon % (Auto) (1.0 - 10.0 %) 13.9 H Eos % (Auto) (1.0 - 5.0 %) 2.4 Baso % (Auto) (0.0 - 1.0 %) 0.3 Neut # (Auto) (2.4 - 6.3 K/mm3) 3.5 Lymph # (Auto) (1.2 - 4.0 K/mm3) 1.2 Harmon # (Auto) (0.0 - 0.6 K/mm3) 0.8 [...] edema, bronchitis, or viral pneumonia. Impression By: [email or web address] - Zia Ponce M.D. Diagnosis, Assessment Plan Free Text [...] cont nebs and Mucinex at 1029 RPT #:[id number] END OF REPORT [facility] 2024-10-05 08:35:00 [facility] ([facility] Gastroenterology Progress Note REPORT#:[id number] REPORT STATUS: Signed REPORT INITIALIZATION DATE:10/05/24 TIME: 834 PATIENT: ABAD HARRINGTON UNIT #: [id number] ROOM/BED: [place] [address] : 55 AGE: 69 SEX: M ATTEND: Luisa Vincent MD ADM AUTHOR: Maria Luz Veloz MD REPT SERVICE DT/TIME: 10/05/24 0835 * ALL edits or amendments must be made on the electronic/computer document * Subjective Chief complaint: confused Review of Systems All systems rev neg: except as marked Objective General VS/I O: Last Documented: Result Date Time Pulse Ox 96 10/05 0701 O2 Delivery Nasal cannula 10/05 07 O2 Flow Rate 4 10/05 0701 B/P 128/71 10/05 0600 B/P Mean 93 10/05 0600 Pulse 109 10/05 0600 Resp 29 10/05 0600 Temp 98.2 10/04 2000 24 hour I [...] to monitor the patient's progress at 0838 [facility] #:[id number] END OF REPORT [facility] 2024-10-04 14:26:00 [facility] ([facility] Pulmonology Progress Note REPORT#:[id number] REPORT STATUS: Signed REPORT INITIALIZATION DATE:10/04/24 TIME: 1425 PATIENT: ABAD HARRINGTON UNIT #: [id number] ROOM/BED: [place] [address] : 55 AGE: 69 SEX: M ATTEND: Luisa Vincent MD ADM AUTHOR: Fawad Jacobo MD REPT SERVICE DT/TIME: 10/04/241425 * ALL edits or amendments must be [...] 10/04 0823 O2 Delivery Nasal cannula 10/04 0823 O2 Flow Rate 5 10/04 0823 B/P [...] Musculoskeletal: full range of motion, normal inspection Neuro/EMERGENCY PHYSICIAN: alert Skin: dry, intact Lymphatics: axilla normal, [...] Impression By: [email or web address] - Emmanuel Ulrich M.D. RADIOLOGY - XR CHEST 1 V 10/04 0550 Report Impression - Status: SIGNED Entered: 10/04/2024 1334 IMPRESSION: Slight clearing of diffuse infiltrates. Impression By: [email or web address] Liliana Chawla M.D. RADIOLOGY - XR CHEST 1 V 10/04 0950 Report Impression - Status: SIGNED Entered: 10/04/2024 1040 IMPRESSION: 1. Left PICC line tip at mid SVC. 2. Exam otherwise stable. Impression By: [email or web address] - MudZuri Antony MD Diagnosis, Assessment Plan Free Text A [...] add nebs and Mucinex at 1431 RPT #:[id number] END OF REPORT [facility] 2024-10-04 13:50:00 [facility] Gastroenterology Progress Note REPORT#:[id number] REPORT STATUS: Signed REPORT INITIALIZATION DATE:10/04/24 TIME: 1350 PATIENT: ABAD HARRINGTON UNIT #: [id number] ROOM/BED: [place] [address] : 55 AGE: 69 SEX: M ATTEND: [...] 10/04 0823 O2 Delivery Nasal cannula 10/04 0823 O2 Flow Rate 5 10/04 0823 B/P 115/60 10/04 0500 B/P Mean 82 10/04 0500 Pulse 97 10/04 0500 Resp 18 10/04 0300 24 hour I O ending at 0700: 10/04 0700 10/03 1900 Intake Total 43.20 Output Total 1175 6600 Balance -4014 -1785.80 Intake, IV 43.20 Number 1 Bowel Movements [...] monitor the patient's progress at 1351 RPT #:[id number] END OF REPORT [facility] 2024-10-04 09:50:00 [facility] ([facility] Hospitalist Progress Note REPORT#:[id number] REPORT STATUS: Signed REPORT INITIALIZATION DATE:10/04/24 TIME: 949 PATIENT: ABAD HARRINGTON UNIT #: [id number] ROOM/BED: [place] [address] : 55 AGE: 69 SEX: M ATTEND: [...] I O ending at 0700: 10/03 0700 Intake Total 43.20 Output Total 6600 [...] Musculoskeletal: full range of motion, normal inspection Neuro/EMERGENCY PHYSICIAN alert, oriented X 2, CNII-XII intact Skin: [...] placed by urology 10/03 worsening pulmonary edema cinv protocol no pain 10/04/2024 Acute hypoxic respiratory [...] prognosis DVT prophylaxis with Lovenox at 0952 [facility] #:[id number] END OF REPORT [facility] 2024-10-03 21:13:00 [facility] ([facility]) Hospitalist Progress Note REPORT#:[id number] REPORT STATUS: Signed REPORT INITIALIZATION DATE:10/03/24 TIME: 2112 PATIENT: ABAD HARRINGTON UNIT #: [id number] [address] : 55 AGE: 69 SEX: M ATTEND: Luisa Vincent MD ADM AUTHOR: Ana María Velasquez MD REPT SERVICE DT/TIME: 10/03/242112 * ALL edits or amendments must be made on the electronic/computer document * Subjective Chief complaint: Follow-up sepsis bacteremia -----Seen in ICU AMS 4 L nasal cannula Jass Ornelas in place ROS cannot be obtained [...] Assessment completed: Results Findings/Data: Laboratory Tests 10/03 10/03 10/03 10/03 10/03 2036 [id number] Chemistry Sodium (136 [...] 5.0 g/dL) 2.6 L Laboratory Tests 10/03 05 Coagulation INR (0.89 - 1.14) 1.4 H [...] (Auto) (23.0 - 38.0 %) 17.5 L Harmon % (Auto) (1.0 - 10.0 %) 12.9 H Eos % (Auto) (1.0 - 5.0 %) 3.9 Baso % (Auto) (0.0 - 1.0 %) 0.9 Neut # (Auto) (2.4 - 6.3 K/mm3) 3.6 Lymph # (Auto) (1.2 - 4.0 K/mm3) 1.0 L Harmon # (Auto) (0.0 - 0.6 K/mm3) 0.7 [...] Musculoskeletal: full range of motion, normal inspection Neuro/EMERGENCY PHYSICIAN alert, oriented X 2, CNII-XII intact Skin: [...] ciwa protocol no pain at 2115 RPT #:[id number] END OF REPORT [facility] 2024-10-03 16:33:00 [facility] ([facility]) Pulmonology Progress Note REPORT#:[id number] REPORT STATUS: Signed REPORT INITIALIZATION DATE:10/03/24 TIME: 1632 PATIENT: ABAD HARRINGTON UNIT #: [id number] ROOM/BED: [place] [address] : 55 AGE: 69 SEX: M ATTEND: [...] Documented: Result Date Time Temp 96.4 10/03 800 O2 Delivery Nasal cannula 10/03 800 O2 Flow Rate 4 10/03 800 Pulse Ox 97 10/03 0741 B/P 94/53 10/03 600 B/P Mean 72 10/03 600 Pulse 77 10/03 600 Resp 25 10/03 600 24 hour I O ending at 0700: [...] Musculoskeletal: full range of motion, normal inspection Neuro/EMERGENCY PHYSICIAN: alert Skin: dry, intact Lymphatics: axilla normal, inguinal normal, neck normal, no lymphadenopathy Psychiatry: abnl judgment/insight, acute psychosis Results Findings/Data: Laboratory Tests 10/03/2427: [Embedded Image Not Available] Laboratory Tests 10/02 0527 0778 1109 Chemistry Sodium (136 - 145 mmol/L) [...] 12.8 SECONDS) 15.0 H Laboratory Tests 10/03 527 Hematology WBC (4.5 - 11.0 K/mm3) 5.7 [...] (Auto) (23.0 - 38.0 %) 17.5 L Harmon % (Auto) (1.0 - 10.0 %) 12.9 H Eos % (Auto) (1.0 - 5.0 %) 3.9 Baso % (Auto) (0.0 - 1.0 %) 0.9 Neut # (Auto) (2.4 - 6.3 K/mm3) 3.6 Lymph # (Auto) (1.2 - 4.0 K/mm3) 1.0 L Harmon # (Auto) (0.0 - 0.6 K/mm3) 0.7 H Eos # (Auto) (0.0 - 0.7 K/MM3) 0.2 Baso # (Auto) (0.0 - 0.2 K/mm3) 0.1 Absolute Nucleated RBC (0.00 - 0.01 X10 3uL) 0.00 Immature Gran % (0.0 - 0.4 %) 1.6 H Nucleated RBC % (0.0 - 0.1 %) 0.0 Immature Gran # (0.00 - 0.07 x10 3/uL) 0.09 H Laboratory Tests 10/03 0527 Serology Hepatitis A IgM Ab (NON REACT. [...] stable. No acute osseous abnormality. Impression By: MookABJessica Ramirez D.O. ULTRASOUND - US PARACENTESIS W IMAGE 10/03 1430 Report Impression - Status: SIGNED Entered: 10/03/2024 1621 IMPRESSION: Successful ultrasound guided paracentesis with 5.6 L of fluid removed. Given volume, recommend 25 g IV albumin infusion. Impression By: [email or web address] Liliana Ulrich M.D. Diagnosis, Assessment Plan Free Text [...] AMMONIA 10/04 0500 Active at 1637 RPT #:[id number] END OF REPORT [facility] 2024-10-03 12:59:00 [facility] ([facility] Gastroenterology Progress Note REPORT#:[id number] REPORT STATUS: Signed REPORT INITIALIZATION DATE:10/03/24 TIME: 1258 PATIENT: ABAD HARRINGTON UNIT #: [id number] ROOM/BED: [place] [address] : 55 AGE: 69 SEX: M ATTEND: [...] monitor the patient's progress at 1301 RPT #:[id number] END OF REPORT [facility] 2024-10-02 15:16:00 [facility] ([facility]) Pulmonology Progress Note REPORT#:[id number] REPORT STATUS: Signed REPORT INITIALIZATION DATE:10/02/24 TIME: 1515 PATIENT: ABAD HARRINGTON UNIT #: [id number] ROOM/BED: [place] [address] : 55 AGE: 69 SEX: M ATTEND: [...] 10/02 1200 O2 Delivery Nasal cannula 10/02 931 O2 Flow Rate 4 10/02 931 24 hour I O ending at 0700: 10/01 1900 10/02 0700 Intake Total 650.00 Output Total 1759 1924 Balance -1110.00 -1925 Intake, IV 150.00 Intake, Oral 500 Number 2 Bowel Movements Output, Urine 1759 1924 PATIENT WEIGHT: Weight (lb): 315 Weight (oz): [...] Musculoskeletal: full range of motion, normal inspection Neuro/EMERGENCY PHYSICIAN: alert Skin: dry, intact Lymphatics: axilla normal, inguinal normal, neck normal, no lymphadenopathy Psychiatry: abnl judgment/insight, acute psychosis Results Findings/Data: Laboratory Tests 10/01/24 2104: [Embedded Image Not Available] 10/02/24 0530: [Embedded Image Not Available] 10/02/24 0531: [Embedded Image Not Available] Laboratory Tests 10/01 10/01 10/01 10/02 10/02 1734 2058 2103 0530 0530 Chemistry Sodium (136 - 145 [...] - 5.0 g/dL) 2.9 L 2.9 L 10/0231 0531 0742 1122 Chemistry POC Glucose (70 - 110 mg/dL) 133 H 137 H Lactic Acid (0.5 - 2.0 mmol/L) 1.4 Ammonia (11.0 - 32.0 umol/L) 43 *H Laboratory Tests 10/02 531 Hematology WBC (4.5 - 11.0 K/mm3) 7.4 [...] (Auto) (23.0 - 38.0 %) 12.1 L Harmon % (Auto) (1.0 - 10.0 %) 12.0 H Eos % (Auto) (1.0 - 5.0 %) 1.2 Baso % (Auto) (0.0 - 1.0 %) 0.7 Neut # (Auto) (2.4 - 6.3 K/mm3) 5.3 Lymph # (Auto) (1.2 - 4.0 K/mm3) 0.9 L Harmon # (Auto) (0.0 - 0.6 K/mm3) 0.9 [...] writing orders for transfer. at 1527 RPT #:[id number] END OF REPORT [facility] 2024-10-02 12:22:00 [facility] ([facility]) GE Consultation Note REPORT#:[id number] REPORT STATUS: Signed REPORT INITIALIZATION DATE:10/02/24 TIME: 122 PATIENT: ABAD HARRINGTON UNIT #: [id number] ROOM/BED: [place] [address] : 55 AGE: 69 SEX: M ATTEND: Luisa Vincent MD ADM AUTHOR: Ro Vickers REPT SERVICE DT/TIME: 10/02/24 1222 * ALL edits or amendments must be made on the electronic/computer document * Ro Vickers 10/02/24 1222: History of Present Illness Reason for consult: cirrhosis of liver ascites Chief complaint: Cirrhosis of liver abdominal distention HPI: 69-year-old patient with known history of cirrhosis, diabetes mellitus type 2, hypertension, BPH, prostate cancer presented to ER as a transfer from [facility]. Patient is slightly restless and mentally altered and currently a very poor historian. History obtained from the chart. Patient was seen at that facility diagnosed with sepsis, he refused transfer and signed out AMA. Returned back to [facility] and was transferred to [facility] for further workup. His blood cultures were [...] Date Time O2 Delivery Nasal cannula 10/02 931 O2 Flow Rate 4 10/02 09 Temp 98.2 10/02 0800 Pulse Ox 88 12/15 0630 B/P 130/72 10/02 0630 B/P Mean 95 10/02 06 Pulse 110 10/02 0630 Resp 18 10/02 630 24 hour I O ending at 0700: 10/02 0700 10/01 1900 Intake Total 650.00 Output Total 1924 1760 Balance -1925 -1110.00 Intake, IV 150.00 Intake, Oral 500 Number 2 Bowel Movements Output, Urine 1924 176 PATIENT WEIGHT: Weight (lb): 315 Weight (oz): [...] Available] 10/02/24 0530: [Embedded Image Not Available] 10/01/24 2104: [Embedded Image Not Available] Laboratory Tests 10/02 10/02 10/02 10/02 10/02 1122 0742 0531 0531 0530 Chemistry POC Glucose (70 - 110 mg/dL) 137 H 133 H Lactic Acid (0.5 - 2.0 mmol/L) 1.4 Phosphorus (2.4 - 5.1 mg/dL) 3.1 Magnesium (1.6 - 2.6 mg/dL) 1.8 Ammonia (11.0 - 32.0 umol/L) 43 *H 10/029 1734 Chemistry Sodium (136 - 145 mmol/L) [...] 2.9 L 2.9 L Laboratory Tests 10/02 531 Hematology WBC (4.5 - 11.0 K/mm3) 7.4 [...] (Auto) (23.0 - 38.0 %) 12.1 L Harmon % (Auto) (1.0 - 10.0 %) 12.0 H Eos % (Auto) (1.0 - 5.0 %) 1.2 Baso % (Auto) (0.0 - 1.0 %) 0.7 Neut # (Auto) (2.4 - 6.3 K/mm3) 5.3 Lymph # (Auto) (1.2 - 4.0 K/mm3) 0.9 L Harmon # (Auto) (0.0 - 0.6 K/mm3) 0.9 [...] Location: H2 Impression By: Surya Almaguer M.D. Diagnosis, Assessment [...] reviewed along with examine and interview with 2ND GRADE TEACHER and I agree with plan as written above at 1247 at 1428 RPT #:[id number] END OF REPORT [facility] 2024-10-02 09:40:00 [facility] ([facility]) Hospitalist Progress Note REPORT#:[id number] REPORT STATUS: Signed REPORT INITIALIZATION DATE:10/02/24 TIME: 939 PATIENT: ABAD HARRINGTON UNIT #: [id number] ROOM/BED: [place] [address] : 55 AGE: 69 SEX: M ATTEND: Luisa Vincent MD ADM AUTHOR: Luisa Vincent MD REPT SERVICE DT/TIME: 10/02/24 0940 * ALL edits or amendments must be made on the electronic/computer document * Subjective Chief complaint: Follow-up sepsis bacteremia -----Seen in ICU AMS 4 L nasal cannula Anasarca Ornelas in place ROS cannot be obtained HPI: 69-year-old patient with known history of cirrhosis, diabetes mellitus type 2, hypertension, BPH, prostate cancer presented to ER as a transfer from [facility]. Patient is currently oriented x 2 but sleepy and currently a very poor historian. Patient apparently was seen at that facility diagnosed with sepsis, he refused transfer and signed out AMA. Return to [facility] from where he was transferred to [facility] for further care. Apparently blood culture bottles [...] 10/02 0507 111 21 138/80 104 95 12/15 0430 108 25 134/73 98 99 10/02 [...] 10/01 2100 114 19 125/60 86 95 10/01 2030 115 20 141/68 96 95 10/01 [...] 0700 Intake Total 650.00 Output Total 1760 192 Balance -1110.00 -1925 Intake, IV 150.00 Intake, Oral 500 Number 2 Bowel Movements Output, Urine 1760 1924 PATIENT WEIGHT: Weight (lb): 315 Weight (oz): [...] (Auto) (23.0 - 38.0 %) 12.1 L Harmon % (Auto) (1.0 - 10.0 %) 12.0 H Eos % (Auto) (1.0 - 5.0 %) 1.2 Baso % (Auto) (0.0 - 1.0 %) 0.7 Neut # (Auto) (2.4 - 6.3 K/mm3) 5.3 Lymph # (Auto) (1.2 - 4.0 K/mm3) 0.9 L Harmon # (Auto) (0.0 - 0.6 K/mm3) 0.9 [...] pH (5.0 - 9.0) 6.0 Ur Specific [place] (1.000 - 1.030) 1.025 Urine Protein (NEGATIVE [...] finding. Location: Impression By: Surya Almaguer M.D. Free Text [...] Musculoskeletal: full range of motion, normal inspection Neuro/EMERGENCY PHYSICIAN alert, oriented X 2, CNII-XII intact Skin: [...] 2 Ornelas placed by urology at 0943 [facility] #:[id number] END OF REPORT [facility] 2024-10-01 17:29:00 [facility] ([facility]) Urology Consult Note REPORT#:[id number] REPORT STATUS: Signed REPORT INITIALIZATION DATE:10/01/24 TIME: 1728 PATIENT: ABAD HARRINGTON UNIT #: [id number] ROOM/BED: [place] [address] : 55 AGE: 69 SEX: M ATTEND: [...] who presented as a transfer from the [facility] for sepsis and bacteremia. He is [...] Date Time O2 Delivery Nasal cannula 10/01 1616 O2 Flow Rate 4 10/01 1616 Pulse [...] pH (5.0 - 9.0) 6.0 Ur Specific [place] (1.000 - 1.030) 1.025 Urine Protein (NEGATIVE [...] (Auto) (23.0 - 38.0 %) 8.8 L Harmon % (Auto) (1.0 - 10.0 %) 8.3 Eos % (Auto) (1.0 - 5.0 %) 0.6 L Baso % (Auto) (0.0 - 1.0 %) 0.7 Neut # (Auto) (2.4 - 6.3 K/mm3) 6.8 H Lymph # (Auto) (1.2 - 4.0 K/mm3) 0.8 L Harmon # (Auto) (0.0 - 0.6 K/mm3) 0.7 [...] phimosis this would not pass. A 16 Burkinan catheter was also attempted and also would not pass through his fibrotic foreskin. A straight sensor wire was passed blindly through the phimosis into the meatus and determined to be in the bladder. An 18 ho-chunk catheter was attempted be passed over the sensor wire however due to what appears to be meatal stenosis would not pass. He was then given a dose of 1 mg of Ativan to assist with his agitation. We then serially dilated his meatus using Ghanshyam dilators from 8 Burkinan to 22 Burkinan. The 18 Burkinan catheter was then passed over the sensor [...] Ornelas catheter was placed without difficulty. -Continue Ornelas catheter, do not remove until patient convalesces and is more alert and oriented Hiro Hoang MD [facility] at 1740 RPT #:[id number] END OF REPORT [facility] 2024-10-01 14:52:00 [facility] ([facility]) Pulmonary Consultation Note REPORT#:[id number] REPORT STATUS: Signed REPORT INITIALIZATION DATE:10/01/24 TIME: 1451 PATIENT: ABAD HARRINGTON UNIT #: [id number] ROOM/BED: [place] [address] : 55 AGE: 69 SEX: M ATTEND: [...] report the the patient was seen at [facility]. At that time he left without [...] abuse Past surgical history Unknown Social history [id number] smoker Alcohol use Family history Reviewed and [...] 5.0 g/dL) 2.3 L Laboratory Tests 10/01 0110 Hematology WBC (4.5 - 11.0 K/mm3) 8.5 [...] (Auto) (23.0 - 38.0 %) 8.8 L Harmon % (Auto) (1.0 - 10.0 %) 8.3 Eos % (Auto) (1.0 - 5.0 %) 0.6 L Baso % (Auto) (0.0 - 1.0 %) 0.7 Neut # (Auto) (2.4 - 6.3 K/mm3) 6.8 H Lymph # (Auto) (1.2 - 4.0 K/mm3) 0.8 L Harmon # (Auto) (0.0 - 0.6 K/mm3) 0.7 [...] pH (5.0 - 9.0) 6.0 Ur Specific [place] (1.000 - 1.030) 1.025 Urine Protein (NEGATIVE [...] writing orders for transfer. at 1652 RPT #:[id number] END OF REPORT [facility] 2024-10-01 11:25:00 [facility] [address] [place] [address] ELECTROCARDIOGRAM Patient: ABAD HARRINGTON Unit #: [id number] Sex/Age: M 69 : 55 Admit Date: 10/01/24 Location: [facility] Physician: Luisa Vincent MD Room/Bed: [place] [address] Order: [id number] Test Reason : TACHY Test Date/Time Stamp: [...] Palma MD at 1346 dd/t: 10/01/24 1125 [facility] 2024-10-01 11:04:00 [facility] ([facility]) Hospitalist History Physical REPORT#:[id number] REPORT STATUS: Signed REPORT INITIALIZATION DATE:10/01/24 TIME: 1104 PATIENT: ABAD HARRINGTON UNIT #: [id number] ROOM/BED: [place] [address] : 55 AGE: 69 SEX: M ATTEND: [...] presented to ER as a transfer from [facility]. Patient is currently oriented x 2 but sleepy and currently a very poor historian. Patient apparently was seen at that facility diagnosed with sepsis, he refused transfer and signed out AMA. Return to [facility] from where he was transferred to [facility] for further care. Apparently blood culture bottles [...] Musculoskeletal: full range of motion, normal inspection Neuro/EMERGENCY PHYSICIAN alert, oriented X 2, CNII-XII intact Skin: [...] ------ follow blood cultures at 1126 RPT #:[id number] END OF REPORT [facility] 2024-10-01 00:58:00 [facility] ([facility]) EMERGENCY PROVIDER REPORT REPORT#:[id number] REPORT STATUS: Signed DATE:10/01/24 TIME: 57 PATIENT: ABAD HARRINGTON UNIT #: [id number] ROOM/BED: [place] [address] : 55 AGE: 69 SEX: M PCP [...] to [facility] ED [facility]. Patient had initially been seen at that facility and diagnosed with sepsis but refused transfer and signed out AMA. Patient returned to the ED at [facility] today. Patient blood cultures from previously came [...] multifocal pneumonia cannot be excluded Impression By: [email or web address] - Charla Lim M.D. Re-Evaluation MDM Free [...] STA 10/01 0113 DC 10/01 PO 10/01 114 012 Gastrointestinal Drugs Sig/Aida Start time Last Medication Dose Route Stop Time Status Admin Lactulose 30 GM X1ED STA 10/01 0113 DC 10/01 PO 10/01 Patient Discharge Departure Vital Signs/Condition Vital Signs All vital signs available at the time of this entry have been reviewed. Condition Stable Clinical Impression Clinical Impression Primary Impression: Pneumonia Secondary Impressions: Cirrhosis Disposition Decision Hospitalize Hosp Physician Name Luisa Vincent MD )( Accepts Hospitalization Yes )( Reason for Hospitalization PNA,CIRRHOSIS )( Accepted Time 010 )( Accepted Date 10/01/24 Call Information will see patient at 0128 RPT #:[id number] END OF REPORT [facility]zkih9795-27-21 11:29:26* Kellie Villarreal RN - 08/22/2024 11:25 AM POTABLE WATER TREATMENT OPERATOR ISH attempted to reach Mr. Harrington again today. His cell phone is still disconnected. AURAIsaac spoke with his sister, Bee Hill, at ph# . She confirmed that his cell phone is still cut off. I asked when is the last time that she spoke with him and she said about 3 days ago. She said that I would need to reach him on Messenger. ISH explained that I am unable to contact Mr. Harrington on Messenger and asked that she please give him my name and contact info to call me regarding scheduling a new patient appt. with Dr. Diehl. Sister agreed to do this. ONN will remain available. BLE WATER TREATMENT OPERATOR [facility] HospitalZfekgek1203-16-79 11:29:26 [facility] HospitalWcqedwc3048-66-55 11:29:26 [facility] HospitalTrawtve2011-77-87 14:54:29 [facility] HospitalHlekjfq7721-99-92 14:54:29* Kellie Villarreal RN - 08/15/2024 2:53 PM CDT Ozzy- did you try the contact below? Plan for oncology and hepatology follow-up. As patient does not have a working phone at present, he asks that schedulers reach out to his sister to coordinate appointments - Bee Hill [phone] From: [facility] New Patient Coordinator <[email or web address]> Sent: Thursday, August 15, 2024 7:50 AM To: Kellie Villarreal <[email or web address]>; HBCIVTEAM <[email or web address]>; [email or web address] Cc: [facility] New Patient Coordinator <[email or web address]>; Alisha Diehl MD ([facility]) <[email or web address]> Subject: RE: secure Insurance Confirmation(Len) Good morning, We have made multiple attempts to contact this patient. Main number andalternate numbers are not working. Ozzy Wallis Patient Aquatic Laborer [place] [address] Office: [phone] [email or web address] [facility] HospitalQwhhwvj4578-81-26 14:54:29 [facility] HospitalFyltuoe0608-72-87 14:54:29 [facility] HospitalCzmnnqi4559-24-87 16:59:00 [facility] HospitalDvxcfla4902-15-42 16:59:00* Kellie Villarreal RN - 08/12/2024 4:58 PM CDT Yanick afternoon, Patient below will need new patient appointment with Dr. Diehl. Please check to see if both PA and are in network: Patient name: Abad Harrington : 1955 Diagnosis: Metastatic Prostate Cancer Date of discharge: 08/11/24 Physician to be seen: Dr. Diehl Referring Physician: Dr. Lilly Sanford Preferred Contact: Preferred Day and time of appointment: ask patient Patient's Current Unit: N/A Comments: [facility] HospitalBflfbuv6697-88-02 16:59:00 [facility] HospitalPkszqbx1094-83-75 16:59:00 [facility] HospitalGnvgzna4279-58-39 16:46:51* Home Health (Routine) - Pending Review Specialty Diagnoses / Procedures Referred By [facility] Referred To Contact Home Health Services Diagnoses Weak Severe sepsis with septic shock (CODE) (HCC) Gutierrez Garcia MD [address] [place] [address] Phone: tel: fax: Referral ID Status Reason Start Date Expiration Date Visits Requested Visits Authorized [id number] Pending Review Specialty Services Required 4 10/10/2024 999 999 * Consultation (Routine) - Pending Review Specialty Diagnoses / Procedures [facility] By [facility] Referred To Contact Hematology and Oncology Diagnoses 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) Procedures [facility] OFFICE/OUTPATIENT [facility] MDM 60-74 MINUTES Elizabeth Kellogg MD [address] [facility] [address] [place] [address] Phone: tel: fax: [facility] Oncology Nurse Navigator [address] [facility] [address] [place] [phone] Phone: tel: Referral ID Status Reason Start Date Expiration Date Visits Requested Visits Authorized [id number] Pending Review Specialty Services Required 4 02/06/2025 1 1 Electronically signed by Elizabeth Kellogg MD at 44:39 PM CDT [facility] HospitalOeybwnp8178-26-36 16:46:51* * Auth/Cert (Routine) Specialty Diagnoses / Procedures Referred By Chon t Referred To Contact Diagnoses AMS (altered mental status) Procedures inpatient Ebenezer Clarek MD [address] [facility] [address] [place] [phone] Phone: tel: fax: [facility] [address] [place] [phone] Phone: tel: Referral ID Status Reason Start Date Expiration Date Visits Re quested Visits Authorized [id number] 1 1 [facility] HospitalBmxdymx0197-76-49 16:46:51 [facility] HospitalMdqjajr3084-40-22 16:46:51* Audit-C Score Answer Date of Assessment Author -1 08/02/2024 11:16 PM CDT Jessica Chaparro RN * Intimate Partner Violence Question Answer Date of Assessment Author Within the last year, have you been humiliated or emotionally abused in other ways by your partner or ex-partner? Patient unable to answer 08/02/2024 11:16 PM CDT Jessica Chaparro RN Within the last year, have you been afraid of your partner or ex-partner? Patient unable to answer 08/02/2024 11:16 PM CDT Jessica Chaparro RN Within the last year, have you been raped or forced to have any kind of sexual activity by your partner or ex-partner? Patient unable to answer 08/02/2024 11:16 PM CDT Jessica Chaparro RN Within the last year, have you been kicked, hit, slapped, or otherwise physically hurt by your partner or ex-partner? Patient unable to answer 08/02/2024 11:16 PM CDT Jessica Chaparro RN * * In the past month, have you... Question Answer Date of Assessment Author Had nightmares about the prashant nts or thought about the events when you did not want to? No 08/05/2024 8:00 PM CDT Lady Parisa Nur RN Tried hard not to think abou t the events or went out of your way to avoid situations that reminded you of the events? No 08/05/2024 8:00 PM KARLAT Lady Parisa Nur RN Been constantly on guard, watchful, or easily startled? No 08/05/2024 8:00 PM CDT Lady Mirta Vasquez RN [place] numb or detached from people, activities, or your surroundings? No 08/05/2024 8:00 PM KARLAT Lady Parisa Nur RN [place] guilty or unable to sto p blaming yourself or others for the events or any problems the events may have caused? No 08/05/2024 8:00 PM CDT Lady Parisa Nur RN * Primary Care PTSD Score Question Answer Date of Assessment Author Primary Care PTSD Total Score 1 08/05/2024 8:00 PM CDT Lady Mirta Nur RN [place] [id number] 16:46:51* Nguyen Azevedo OT - 08/11/2024 2:58 [...] 12:47 PM CDT Pt's primary team contacted SW & requested an update regarding discharge plans and asked how pt could be reached in the future for appointments. SW contacted pt by room phone. Pt stated pt's sister was able to speak w/pt's son via [employer] messenger & pt's son called pt on hospital room phone. Pt stated he would like to discharge to pt's son's current critical access hospital room, [facility], Room: 111 in [place], [place]. Pt stated he will turn on his phone on August 23, 2 days after he gets his check/new debit card and he hopes to keep the same number, . Pt stated he does not have transportation to the hotel room and would need assistance. Control Integration Engineer contacted [employer] Management and requested approval for Lyft Voucher. CM Youth Program Director Taylor and Director Isis approved Lyft Voucher. SW updated pt's primary team & requested discharge orders. SW provided pt's nurse w/Lyft Voucher. * ADRIANA [...] get into the bladder. Brought guidewire and ho-chunk tip catheter bedside, however had long discussion [...] page urology with any questions or concerns. Denise Sears PA-C Subjective: Pt is a 69 [...] chloride, 10 mL, Intravenous, q12h * Nguyen Azevedo, OT - 08/10/2024 3:10 PM CDT Treatment Session Note Patient Name: Abad Harrington Today's Date: 08/10/2024 Preferred Language: Singaporean Assessment & Plan Assessment: OT Assessment Results: [...] Score: 19 MobilityHighest Level of Mobility Performed (-HLM): Walked 10 [...] discharge summary. Nguyen Azevedo OT * Gage Carrillo PT - 08/10/2024 1:50 PM CDT Physical Therapy Treatment Session Note Patient Name: Abad Harrington Today's Date: 08/10/2024 Preferred Language: Singaporean Assessment & Plan Assessment: The pt tolerated [...] and reassess as needed PT Discharge Recommendations: [facility] facility placement PT Recommended Transfer Status: Independent [...] TreatmentRN cleared pt for PT treatment Pt [facility] upon arrival Pt able to stand with Supervision and RW Pt able to ambulate ~200ft with Supervision. Multiple standing breaks. Pt able to transfer to seated in chair with Supervision and RW Pt left [facility] with CB, phone, and tray. RN notified [...] stairs: None Mobility Inpatient Raw Score: 19 -[facility] Goal: 6 Patient Education: Education Documentation No [...] is currently at pt's son's girlfriend's address: [address] [place] [address]. Pt stated his son is currently staying at a motel however did not know the address or name. Pt expressed he does not have money until August 21 and would need to get a new Credit Card in order to have access to his money. LURDES explained the safest option for discharge appears [...] PIV x2 Code status: Full Dispo: to [facility] Patient discussed with attending Dr. Kellogg. Gutierrez Garcia MD, MPH [facility] Internal Medicine PGY-1 08/10/24, 7:55 AM Subjective: NAEON. Denies N/V/F/C, CP/SOB. Patient has no complaints today. States he just wants to sleep. Patient demonstrates adequate medical decision-making capacity including understanding of information presented, expression of choice, appreciation of decision and medical reasoning. I have determined that Abad Harrington has capacity to make medical decisions. Objective: Vitals: 08/09/24 2329 08/10/24 0354 08/10/24 0355 08/10/24354 BP: 107/57 BP Location: Patient Position: Pulse: [...] q6h PRN Paco Morales MD nystatin (Mycostatin) 924713 UNIT/GM powder 1 Application 1 Application Topical [...] is identified.Impression: No acute abnormality. Cosigned by Elizabeth Kellogg MD at 08/10/2024 9:57 PM CDT Associated attestation - Elizabeth Kellogg MD - 08/10/2024 9:57 PM CDT PA Internal Medicine Team A ATTENDING ATTESTATION I have seen and examined the patient Mr. Abad Harrington on the above dateof service, reviewed the laboratory/imaging/microbiology data/applicable sr technical sales consultant notes, discussed the pertinent case findings [...] Crow Professor, Division of General Internal Medicine [facility] [employer] * Abhijit Rizo OT - 08/09/2024 4:05 [...] to SNF Patient discussed with attending Dr. Kellogg. Epi Kim MD [facility] Internal Medicine PGY-2 08/09/24, 3:25 PM Subjective: NAEON. Denies N/V/F/C, CP/SOB. Patient got procedure today with IR and remains not amenable to going to SNF. [facility]. Objective: Vitals: 08/09/24 1115 08/09/24 1120 08/09/24 [...] q6h PRN Paco Morales MD nystatin (Mycostatin) [id number] UNIT/GM powder 1 Application 1 Application Topical [...] is identified.Impression: No acute abnormality. Cosigned by Elizabeth Kellogg MD at 08/09/2024 4:55 PM CDT Associated attestation - Valdez, Elizabeth Garcia MD - 08/09/2024 4:55 PM CDT PA Internal Medicine Team A ATTENDING ATTESTATION I have seen and examined the patient Mr. Abad Harrington on the above dateof service, reviewed the laboratory/imaging/microbiology data/applicable sr technical sales consultant notes, discussed the pertinent case findings [...] Crow Professor, Division of General Internal Medicine [facility] [employer] * Ggae Carrillo PT - 08/09/2024 1:15 PM CDT Physical [...] have someone pull his camper to a RV park that provides electricity and water and [...] will follow up when next available. Gage Carrillo PT * Bebe Alas LCSW - 08/08/2024 11:57 AM CDT SW contacted pt by room phone to discuss discharge plans. Pt stated he needed to order his lunch however would speak with me. Pt stated he is not in agreement to discharge to a NH. Pt gave permission for SW to contact pt's son to discuss discharge plans. SW contacted pt's son, Felice Harrington([phone]), to discuss discharge plans. Pt's son stated he has been estranged from pt for awhile. Pt's son stated pt is unable to stay with him. Pt's son will attempt to get contact information for pt's other son, Nisha Harrington. * Daphne Sahnimillie, OT - 08/08/2024 9:30 AM CDT Occupational Therapy Treatment Session Note Patient Name: Abda Harrington Today's Date: 08/08/2024 Preferred Language: Singaporean Assessment & Plan Assessment: Pt. Required MOD [...] 18 Mobility Highest Level of Mobility Performed (JH-HLM): Walked 10 [...] to SNF Patient discussed with attending Dr. Kellogg. Gutierrez Garcia MD, MPH [facility] Internal Medicine PGY-1 08/08/24, 7:54 AM Subjective: NAEON. Denies N/V/F/C, CP/SOB. Patient was angry that his food tray was not at bedside this morning and states that his SP tube is not leaking anymore. Objective: Vitals: 08/07/24 2335 08/08/24 0353 08/08/24 0353 08/08/24353 BP: 125/69 Pulse: 85 80 Resp: 14 [...] injection 7,500 Units 7,500 Units Subcutaneous q8h [facility] Aretha Griffin MD 7,500 Units at 08/08/24 [...] 1 tablet at 08/06/24 0836 nystatin (Mycostatin) 737992 UNIT/GM powder 1 Application 1 Application Topical [...] is identified.Impression: No acute abnormality. Cosigned by Elizabeth Kellogg MD at 08/08/2024 8:17 PM CDT Associated attestation - Valdez, Elizabeth Garcia MD - 08/08/2024 8:17 PM CDT PA Internal Medicine Team A ATTENDING ATTESTATION I have seen and examined the patient Mr. Abad Harrington on the above dateof service, reviewed the laboratory/imaging/microbiology data/applicable sr technical sales consultant notes, discussed the pertinent case findings [...] Will try to obtain outside records from [facility]. Completing ceftriaxone course for CAP. On [...] catheter Code StatusFull code DispositionPending clinical improvement Elizabeth Kellogg MDAssmiles Professor, Division of General Internal Medicine [facility] * Elaine Wharton, OT - 08/07/2024 11:40 AM CDT Evaluation and Treatment Patient Name: Abad Harirngton Today's Date: 08/07/2024 Preferred Language: Singaporean Assessment & Plan Pt is a 69 [...] Bathroom Toilet: Standard Prior Function: Level of Bladen: Ambulated with assistive device (comment) Receives Help [...] PIV x2 Code status: Full Dispo: to [facility] Patient discussed with attending Dr. Kellogg. Gutierrez Garcia MD, MPH [facility] Internal Medicine PGY-1 08/07/24, 8:06 AM [...] data in the 24 hours ending 08/07/24 08 Physical Exam General: adult supine in bed; [...] injection 7,500 Units 7,500 Units Subcutaneous q8h [facility] Aretha Griffin MD 7,500 Units at 08/07/24 [...] 1 tablet at 08/06/24 0836 nystatin (Mycostatin) [id number] UNIT/GM powder 1 Application 1 Application Topical [...] 2 packet 2 packet Oral q4h PRN nNeka Washington MD Or potassium & sodium phosphates [...] (4483) on 08/04/2024 12:26:57 AM Cosigned by Elizabeth Kellogg MD at 08/07/2024 4:57 PM CDT Associated attestation - Elizabeth Kellogg MD - 08/07/2024 4:57 PM CDT PA Internal Medicine Team A ATTENDING ATTESTATION I have seen and examined the patient Mr. Abad Harrington on the above dateof service, reviewed the laboratory/imaging/microbiology data/applicable sr technical sales consultant notes, discussed the pertinent case findings [...] Will try to obtain outside records from [facility]. Completing ceftriaxone course for CAP. Starting [...] Crow Professor, Division of General Internal Medicine [facility] * Maral Ford, PT - 08/06/2024 4:07 PM CDT Evaluation and Treatment Note Patient Name: Abad Harrington Today's Date: 08/06/2024 Preferred Language: Singaporean Assessment & Plan Pt is a 69 [...] per week until discharge PT Discharge Recommendations: [facility] facility placement PT Recommended Transfer Status: Total [...] Cane Prior Level of Function: Level of Bladen: Ambulated with assistive device (comment) Receives Help [...] stairs: Total Mobility Inpatient Raw Score: 11 -[facility] Goal: 4 Bed activity Patient Education:Education Documentation Physical Therapy Plan of Care, taught by Maral Ford, PT at 08/06/2024 4:04 PM. Learner: Patient [...] clinical improvement Patient discussed with attending Dr. Kellogg. Gutierrez Garcia MD, MPH [facility] Internal Medicine PGY-1 08/06/24, 8:27 AM [...] was possibly treated. Objective: Vitals: 08/05/24 2353 08/06/24 0343 08/06/24 0343 08/06/24 0345 BP: 128/67 Pulse: 89 90 Resp: 18 [...] injection 7,500 Units 7,500 Units Subcutaneous q8h [facility] Aretha Griffin MD 7,500 Units at 08/06/24 [...] 1 tablet at 08/05/24 0817 nystatin (Mycostatin) [id number] UNIT/GM powder 1 Application 1 Application Topical [...] infusion 250 mL 250 mL Intravenous PRN Pcao Coy MD sodium phosphates 45 mmol in [...] (4483) on 08/04/2024 12:26:57 AM Cosigned by Elizabeth Kellogg MD at 08/06/2024 7:24 PM CDT Associated attestation - Elizabeth Kellogg MD - 08/06/2024 7:24 PM CDT PA Internal Medicine Team A ATTENDING ATTESTATION I have seen and examined the patient Mr. Abad Harrington on the above dateof service, reviewed the laboratory/imaging/microbiology data/applicable sr technical sales consultant notes, discussed the pertinent case findings [...] Will try to obtain outside records from [facility]. Unclear what oncologic work-up has been done. Patient would like to pursue oncology work-up and treatment, appreciate oncology consult. Completing ceftriaxone course for CAP. Per family, patient is unhoused and couch surfs at friends' houses. Most recently he was staying with his sister but he reports he does not want to return to her home. Appreciate SW support in arranging safe discharge plan. We appreciate the assistance of the oncology consultation team.We appreciate the efforts of the Social Work/Case Management team in helping to facilitate a safe discharge. ProphylaxisHeparin 7.5k q 8h Lines/Tubes/DrainsPIV x 2, suprapubic catheter Code StatusFull code DispositionPending clinical improvement Marianne Crow Professor, Division of General Internal Medicine [facility] [employer] * Kriss Bundy MD - 08/05/2024 8:26 [...] liver, possible cirrhosis No pocket for paracentesis PLANThe ICU Team consulted Oncology, consult rejected as [...] smoker as well, does not want patch. Traffic Control Supervisor on cessation Metastatic cancer (HCC) As above, [...] meant to be his medical power of workers compensation attorney. Patient really wants to get in [...] Limited abduction, flexion and extension Skin: Warm, luciana, dry-scaling and hyperpigmentation of bilateral upper extremities, [...] with son Kriss Bundy MDInternal Medicine PGY2 [facility] Cosigned by Elizabeth Kellogg MD at 08/08/2024 7:56 PM CDT Associated attestation - Elizabeth Kellogg MD - 08/08/2024 7:56 PM CDT Patient transferred from MICU to Medicine Team A overnight. Please see my attestation on progress note by Dr. Gutierrez Garcia on 08/06. Marianne Crow Professor, Division of General Internal Medicine [facility] * Taco Enriquez LCSW - 08/05/2024 3:20 PM CDT Social Work Note SW contacted pt's sister, Bee Hill([phone]) to discuss pt's NOK. Bee stated pt has two sons, Nisha Harrington who she can only reach via [employer] messenger and Felice Harrington([phone]). SW reached out to pt's son, Felice Harrington([phone]), Felice stated that pt was previously hospitalized at [facility], June of 2024. Pt was then dc to his sister, Bee Hill's home on hospice. Pt's sister was not able to meet pt's needs at her home. Pt was placed at [facility] with [facility] hospice. SW reached out to [facility] nurse, Nneka([phone]) who stated pt did not want to be at facility and left AMA on 07/30/2024, pt had capacity at the time to make his own decisions. Pt left via ambulance to his son, Nisha Ross address. Nneka did not have the address or phone number of Nisha Harringotn. SW reached out to [facility] Hospice admissions staff, Mariana([phone]) who stated pt was on hospice from 06/26-08/03/2024. Pt's NOK are his two sons, Nisha Harrington and Felice Harrington([phone]). SW will continue to follow. * Elizabeth Barber - 08/05/2024 12:43 PM CDT Case Management Note CM met with pt at bedside who stated he was on hospice prior to admission however did not know the name of the agency. Pt stated he lives in [facility] in [place], [place] alone. Pt reports NOK is 2 Sons Nisha Cullen and Felice Harrington( ). CM contacted pt's sister, Bee Hill who reports pt was recently discharged to her home from [facility] with [facility] Hospice. Sister reports APS case [...] to obtain it. CM to f/u with [facility] Hospice, Pt's son and APS. Elizabeth Barber LMSW, ACM-SW Charger Operator * Courtney De Santiago PT - 08/05/2024 9:00 AM CDT Encounter Note Patient Name: Abad Harrington Today's Date: 08/05/2024 Missed Treatment Time and Reason [phone] Patient evaluation attempted and pt. refusing any [...] next available opportunity Daphne Peres OT * Luc Flores MD - 08/05/2024 [...] encouragement of PO fluid intake. Patient's sister [phone] Bee Hill Principal Problem:AMS (altered mental status) [...] low dose SSI prn -Glucose range: 140-180 Agmwvvn-fxwvhnap-BF/OT consult: when applicable Consults:urology ICU CHECKLIST -Code Status: Full code -Feeds/fluids: start oral feeds -Suprapubic catheter Date placed: 08/02 -Thromboprophylaxis: heparin subq -Head of bed: elevated -Glycemic control: SSI prn -SBT: in am -Bowel regimen: miralax prn -Indwelling lines: arterial line, PIV -De-escalate drugs: Fentanyl, versed Family contacts: patient's son Nisha Harrington, SW attempting to reach family Patient's sister [phone] Bee Hill Disposition: Transfer to floor Manuel Mcknight Physician, PGY-1 [facility] | Physical Medicine & Rehabilitation Subjective/24h Events: [...] 1 Notified RN/MD POC Performing Location SP8 HT ICU POC Glucose Collection Time: 08/04/24 8:09 [...] Clarke MD - 08/05/2024 8:01 PM CDT [facility] ICU Attending Attestation I have reviewed [...] Reyna Professor Pulmonary and Critical Care Faculty [facility] * Elizabeth Barber - 08/04/2024 2:11 PM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
--- NOTE | 2025-03-13 21:21 | EDPHYS ---
Physician Documentation [facility] Name: Tutu Harrington Age: 69 yrs Sex: Male : 1955 Arrival Date: 03/13/2025 Time: 15:24 Bed 7 Private MD: ED Physician Jacques Graham HPI: 03/13 19:24 This 69 yrs old Male presents to ER via EMS with complaints of Abdominal Swelling. rt 19:24 Patient presents to the ED with abdominal swelling. He has a Pleurx catheter in place, rt reportedly was unable to perform paracentesis with that. Denies other acute complaints at this time, symptoms are moderate in severity, no other aggravating alleviating factors.. Historical: - Allergies: 15:30 No Known Allergies; bp - PMHx: 15:30 Arthritis; BPH (Unknown); COPD; Diabetes - Refused Insulin; liver cancer; Prostate bp Cancer; - Immunization history:: Adult Immunizations up to date. - Infectious Disease History:: Denies. - Social history:: Smoking status: unknown. - Family history:: not pertinent. ROS: 19:24 Constitutional: Negative for fever, chills, and weight loss, Cardiovascular: Negative rt for chest pain, palpitations, and edema, Respiratory: Negative for shortness of breath, cough, wheezing, and pleuritic chest pain, MS/Extremity: Negative for injury and deformity, Skin: Negative for injury, rash, and discoloration, Neuro: Negative for headache, weakness, numbness, tingling, and seizure, 19:24 Abdomen/GI: Positive for abdominal pain, abdominal distension, Exam: 19:24 Constitutional: This is a well developed, well nourished patient who is awake, alert, rt and in no acute distress. Head/Face: Normocephalic, atraumatic. Chest/axilla: Normal chest wall appearance and motion. Nontender with no deformity. No lesions are appreciated. Cardiovascular: Regular rate and rhythm with a normal S1 and S2. No gallops, murmurs, or rubs. Normal PMI, no JVD. No pulse deficits. Respiratory: Lungs have equal breath sounds bilaterally, clear to auscultation and percussion. No rales, rhonchi or wheezes noted. No increased work of breathing, no retractions or nasal flaring. Skin: Warm, dry with normal turgor. Normal color with no rashes, no lesions, and no evidence of cellulitis. MS/ Extremity: Pulses equal, no cyanosis. Neurovascular intact. Full, normal range of motion. Neuro: Awake and alert, GCS 15, oriented to person, place, time, and situation. Cranial nerves II-XII grossly intact. Motor strength 5/5 in all extremities. Sensory grossly intact. Cerebellar exam normal. Normal gait. 19:24 Abdomen/GI: Ascitic abdomen, mildly tender diffusely, Pleurx catheter in place, Vital Signs: 15:27 BP 104 / 70; Pulse 98; Resp 16; Temp 98; Pulse Ox 98% ; bp 20:53 BP 99 / 61; Pulse 96; Resp 16; Pulse Ox 96% on R/A; kd3 21:31 BP 93 / 72; Pulse 104; Resp 16; Temp 98; Pulse Ox 96% ; Pain 0/10; bm8 23:16 BP 101 / 67; Pulse 88; Resp 18; Temp 98; Pulse Ox 94% ; Pain 0/10; bm8 21:31 Pain Scale: Adult bm8 23:16 Pain Scale: Adult bm8 John Coma Score: 21:31 Eye Response: spontaneous(4). Motor Response: obeys commands(6). Verbal Response: bm8 oriented(5). Total: 15. 23:16 Eye Response: spontaneous(4). Motor Response: obeys commands(6). Verbal Response: bm8 oriented(5). Total: 15. MDM: 15:30 Medical Screening Exam initiated rt 21:18 Differential Diagnosis Obstructed peritoneal catheter, obstructed peritoneal drain. sp4 Data reviewed: vital signs. 21:18 Consideration of Admission/Observation Escalation of care including sp4 admission/observation considered. ED course: The peritoneal catheter cannot be unclogged in the ER. It flushes without a problem but does not flow back with peritoneal fluid. Patient was discussed with general surgeon who recommended outpatient follow-up in the office for catheter exchange.. Administered Medications: No medications were administered Disposition Summary: 03/13/25 21:20 Discharge Ordered Problem: new sp4 Symptoms: have improved sp4 Condition: Stable sp4 Diagnosis - Obstructed peritoneal drain , Complications of peritoneal catheter sp4 - Abdominal ascites sp4 Followup: sp4 - With: Ralph Seymour MD - When: 7 - 10 days - Reason: Recheck today's complaints Discharge Instructions: - Discharge Summary Sheet sp4 - Ascites Drainage Catheter Placement, Care After sp4 Forms: - Patient Portal Instructions sp4 Signatures: Zia Lang RN RN Osman Castro MD MD rt Jacques Graham MD MD sp4
--- NOTE | 2025-03-13 21:21 | ER ---
Nurse's Notes [facility] Name: Tutu Harrington Age: 69 yrs Sex: Male : 1955 Arrival Date: 03/13/2025 Time: 15:24 Bed 7 Private MD: Diagnosis: Obstructed peritoneal drain , Complications of peritoneal catheter ;Abdominal ascites Presentation: 03/13 15:27 Chief complaint: EMS states: DECREASED PARACENTESIS OUTPUT. Coronavirus screen: At this bp time, the client does not indicate any symptoms associated with coronavirus-19. Ebola Screen: No symptoms or risks identified at this time. Initial Sepsis Screen: Does the patient meet any 2 criteria? No. Patient's initial sepsis screen is negative. Does the patient have a suspected source of infection? No. Patient's initial sepsis screen is negative. Risk Assessment: Do you want to hurt yourself or someone else? Patient reports no desire to harm self or others. Onset of symptoms is unknown. 15:27 Method Of Arrival: EMS: [facility] bp 15:27 Acuity: JESSA 3 bp Triage Assessment: 15:30 General: Appears in no apparent distress. Behavior is calm, cooperative, appropriate bp for age. Pain: Denies pain. EENT: No deficits noted. Neuro: No deficits noted. Cardiovascular: No deficits noted. Respiratory: No deficits noted. GI: Abdomen is noted to have ascites. : No signs and/or symptoms were reported regarding the genitourinary system. Derm: No deficits noted. Musculoskeletal: No deficits noted. Historical: - Allergies: 15:30 No Known Allergies; bp - PMHx: 15:30 Arthritis; BPH (Unknown); COPD; Diabetes - Refused Insulin; liver cancer; Prostate bp Cancer; - Immunization history:: Adult Immunizations up to date. - Infectious Disease History:: Denies. - Social history:: Smoking status: unknown. - Family history:: not pertinent. Screenin:20 [facility] ED Fall Risk Assessment (Adult) History of falling in the last 3 months, bp including since admission No falls in past 3 months (0 pts) Confusion or Disorientation No (0 pts) Intoxicated or Sedated No (0 pts) Impaired Gait No (0 pts) Mobility Assist Device Used No (0 pt) Altered Elimination No (0 pt) Score/Fall Risk Level 0 - 2 = Low Risk. Abuse screen: Denies threats or abuse. Denies injuries from another. Nutritional screening: No deficits noted. Tuberculosis screening: No symptoms or risk factors identified. Assessment: 15:30 General: Appears in no apparent distress. Behavior is calm, cooperative, appropriate bp for age. 17:21 Reassessment: ATTEMPTED TO ACCESS PARACENTESIS PORT PER MD. UNABLE TO ASPIRATE, MD bp INFORMED. 20:30 Reassessment: Patient appears in no apparent distress at this time. Patient and/or bm8 family updated on plan of care and expected duration. Pain level reassessed. Patient is alert, oriented x 3, equal unlabored respirations, skin warm/dry/pink. Patient states feeling better. 21:31 Reassessment: Called To [facility] to arrange transportation for pt back. Spoke with bmDale Ritter LVN and she stated that it might be about an hour and would call back with an ETA on when an ambulance was coming. 21:34 Reassessment: Pt is awaiting transportation from [facility] for discharge. bm8 21:38 GI: Bowel sounds tympanic in right upper quadrant, left upper quadrant, right lower bm8 quadrant and left lower quadrant Abd is non tender. 23:16 Reassessment: Patient appears in no apparent distress at this time. Patient and/or bm8 family updated on plan of care and expected duration. Pain level reassessed. Patient is alert, oriented x 3, equal unlabored respirations, skin warm/dry/pink. Patient states feeling better. Vital Signs: 15:27 BP 104 / 70; Pulse 98; Resp 16; Temp 98; Pulse Ox 98% ; bp 20:53 BP 99 / 61; Pulse 96; Resp 16; Pulse Ox 96% on R/A; kd3 21:31 BP 93 / 72; Pulse 104; Resp 16; Temp 98; Pulse Ox 96% ; Pain 0/10; bm8 23:16 BP 101 / 67; Pulse 88; Resp 18; Temp 98; Pulse Ox 94% ; Pain 0/10; bm8 21:31 Pain Scale: Adult bm8 23:16 Pain Scale: Adult bm8 John Coma Score: 21:31 Eye Response: spontaneous(4). Motor Response: obeys commands(6). Verbal Response: bm8 oriented(5). Total: 15. 23:16 Eye Response: spontaneous(4). Motor Response: obeys commands(6). Verbal Response: bm8 oriented(5). Total: 15. ED Course: 15:26 Patient arrived in ED. bp 15:28 Triage completed. bp 15:29 Osman Hernandez MD is Attending Physician. rt 15:30 Arm band placed on. bp 17:20 Zia Lang RN is Primary Nurse. bp 17:20 Patient has correct armband on for positive identification. bp 20:07 Attending Physician role handed off by Osman Hernandez MD sp4 20:07 Jacques Graham MD is Attending Physician. sp4 21:19 Ralph Seymour MD is Referral Physician. sp4 21:32 Primary Nurse role handed off by Zia Lang RN rv1 21:36 Cameron Gama RN is Primary Nurse. bm8 21:37 Provided Education on: post er care. Client placed on continuous cardiac and pulse bm8 oximetry monitoring. NIBP monitoring applied. Pulse ox on. NIBP on. Door closed. Noise minimized. Warm blanket given. Pillow given. Verbal reassurance given. Head of bed elevated. 21:37 No provider procedures requiring assistance completed. Patient maintains SpO2 bm8 saturation greater than 95% on room air. 21:38 IV discontinued, intact, bleeding controlled, No redness/swelling at site. Pressure bm8 dressing applied. Administered Medications: No medications were administered Medication: 21:36 VIS not applicable for this client. bm8 Outcome: 21:20 Discharge ordered by . sp4 21:37 Discharged to senior living. Report called to JENNIFER Ritter bm8 21:37 Condition: stable 21:37 Discharge instructions given to patient, Instructed on discharge instructions, follow up and referral plans. Demonstrated understanding of instructions, follow-up care, medications, 23:32 Patient left the ED. bm8 Signatures: Zia Lang, RN RN bp Mira Monahan RN RN kd3 Osman Hernandez MD MD rt Megan Brasher rv1 Jacques Graham MD MD sp4 Cameron Gama RN RN bm8
[2025-03-13 23:38] VITALS: TEMP 98
[2025-03-13 23:43] VITALS: BP 101/67; O2SAT 94
== END 2025-03-13 23:32 | disposition home or self-care (01) ==
LOC: ER 15:24
DX: R18.8 Other ascites (principal); T85.691A Other mechanical complication of intraperitoneal dialysis catheter, initial encounter
CPT/HCPCS: 99284